=== PATIENT | male | born 1945 | race African-American/Black ===

== ENCOUNTER 2016-11-17 17:22 | Inpatient (IN) ==
--- NOTE | 2016-11-17 18:48 | Emergency Department Note ---
Addendum entered and electronically signed by Jasen Kern DO 11/17/16 21:51: EKG reviewed 85bpm normal rate, sinus rhthmyn, left axis, no acute changes. No ST segment changes normal QRS Original Note: Disposition Clinical Impression: Hyperkalemia, Acute on chronic renal failure, Morbid obesity with BMI of 40.0- 44.9, adult, Pulmonary nodule, Lesion of vertebra, Retroperitoneal lymphadenopathy Anemia Qualifiers: Anemia type: unspecified type Qualified Code(s): D64.9 - Anemia, unspecified Hydronephrosis Qualifiers: Hydronephrosis type: unspecified Qualified Code(s): N13.30 - Unspecified hydronephrosis Disposition: Admitted As Inpatient Condition: Critical Time of Disposition: 21:50 Abdominal Pain HPI - General Chief Complaint: ED Abdominal Pain Stated Complaint: Kidney problems/R flank pain Time Seen by Provider: 11/17/16 18:06 Source: patient Nursing Notes Reviewed: Yes Vital Signs Reviewed: Yes - History of Present Illness HPI Narrative: 71-year-old male with weakness and fatigue for the last few days. [facility] told that he had a obstructed kidneys and the come to the emergency department after he left the urgent care. Patient has history of hyperlipidemia, gout, hypertension, recent concerns for worsening memory issues per documentation reviewed, but denies dementia. Patient has CT scan of his abdomen and his head today, the head CT was negative for any acute abnormality. Pt Subjective Complaint: abdominal pain Consistency: intermittent Location: R flank Pain Severity: moderate Pain Scale: 5 Quality: cramping Radiation: R flank Improves with: nothing Worsens with: movement Associated symptoms: Reports: nausea, other (Weakness). Denies: vomiting, diarrhea - Related Data Home Medications Medication Instructions Recorded Confirmed Acetaminophen [Tylenol] 325 mg PO BID PRN 10/17/15 11/17/16 Allopurinol [Zyloprim 300 MG] 300 mg PO DAILY 10/17/15 11/17/16 Ascorbic Acid [Vitamin C] 1,000 mg PO DAILY 10/17/15 11/17/16 Atorvastatin Calcium [Lipitor] 40 mg PO QPM 10/17/15 11/17/16 Carboxymethylcellulos/Glycerin 1 drop BOTH EYES QID 10/17/15 11/17/16 [Refresh Optive Eye Drops] Docusate Sodium [Colace] 100 mg PO BID 10/17/15 11/17/16 Insulin Glargine [Lantus] 56 unit SQ DAILY 10/17/15 11/17/16 Ipratropium/Albuterol Neb [Duoneb] 3 ml IH QID PRN 10/17/15 11/17/16 Lisinopril [Zestril] 5 mg PO BID 10/17/15 11/17/16 Modafinil [Provigil] 400 mg PO QAM 10/17/15 11/17/16 Multivitamin [Multivitamins] 1 tab PO QAM 10/17/15 11/17/16 Omeprazole [PriLOSEC] 40 mg PO DAILY 10/17/15 11/17/16 Petrolatum,Hydrophilic [Aloe [place]] 1 appl TP AD PRN 10/17/15 11/17/16 Saliva Stimulant [Biotene 3 - 5 spray PO BID 10/17/15 11/17/16 Moisturizing Rinse] Sertraline [Zoloft] 100 mg PO QAM 10/17/15 11/17/16 Benzocaine/Menthol [Sore Throat 1 each MM QID PRN 05/24/16 11/17/16 Lozenge] Bicalutamide [Casodex] 50 mg PO DAILY 05/24/16 11/17/16 Capsaicin 0.025% [Trixaicin] 1 appl TP QID 05/24/16 11/17/16 Pyridoxine HCl [Vitamin B-6] 100 mg PO DAILY 05/24/16 11/17/16 Water for Irrigation (sterile) 0 ml .ROUTE BID 05/24/16 11/17/16 [Water for irrigation (sterile)] Apixaban [Eliquis] 2.5 mg PO BID 11/17/16 11/17/16 Calcium Carbonate [Calcium] 1,000 mg PO BID 11/17/16 11/17/16 Ferrous Sulfate 325 mg PO DAILY 11/17/16 11/17/16 Gabapentin [Neurontin] 300 mg PO Q8H 11/17/16 11/17/16 Urea 1 appl TP BID 11/17/16 11/17/16 Vardenafil HCl [Levitra] 5 mg PO AD PRN 11/17/16 11/17/16 Allergies Allergy/AdvReac Type Severity Reaction Status Date / Time IVP dye Allergy Vomiting Uncoded 10/17/15 06:47 Review of Systems: A 10 point ROS was obtained from the historian. All other systems were reviewed and negative, except as per below, or as documented in the HPI. Constitutional: Denies: fever, chills, weight changes Eyes: Denies: vision changes, eye pain ENT: Denies: nasal congestion, sore throat CV: Denies: chest pain, palpitations, leg swelling Resp: Denies: cough, dyspnea, wheezes, hemoptysis GI: +Right flank pain Denies: abdominal pain, N/V/D/C, hematochezia, melena Denies: dysuria, hematuria MSK: Denies: back pain, neck pain, extremity pain Skin: Denies: new rashes, new lesions Neuro: Generalized weakness Denies: MANZANARES, sensory changes, gait difficulty Psych: Denies: anxiety, depression All systems ED: reviewed and negative except as stated. Abdominal Pain PMH - Past Medical History Medical history: Reports: cancer, CHF, COPD, CVA, diabetes, hyperlipidemia, hypertension, renal disease Male Surgical History: Reports: other Psychiatric history: Reports: anxiety, depression - Social History Smoking status: Never smoker Alcohol use: Reports: none Drug use: Reports: none Physical Exam Constitutional: alert and oriented, in NAD, vital signs reviewed and were within normal limits HEENT: NCAT, sclera anicteric, PERRLA bilaterally, normal external ears bilaterally, nasal septum nondeviated, average dentition, MMM Neck: normal inspection, neck is supple, trachea midline, no JVD Resp: normal chest inspection, CTA bilaterally, no resp distress, symmetric chest rise CV: RRR, no m/g/r, Pulses +2 Rad, +2 DP/PT bilaterally, no pedal edema GI: normal inspection, Soft, NTND, BS present and normoactive Rectal: [place] negative, no hemorrhoids Back: normal inspection, no tenderness to palpation Right CVA tenderness Neuro: A&O3, CN II-XII grossly intact bilaterally, no gross motor or sensory deficits bilaterally MSK: normal inspection, bilateral UE and LE with normal ROM and no deformities Psych: normal mood, normal affect Skin: No rashes, skin warm, dry, intact - General Limitations: no limitations General appearance: alert Course Course Narrative: 71-year-old male with nonspecific complaints including weakness, right flank pain, patient's CT scan demonstrated no ICH and head CT, develop mild bilateral noncalcified pulmonary nodules, most consistent with pulmonary metastatic disease, moderate left-sided hydronephrosis, abnormal retroperitoneal adenopathy , T9 vertebral body suspicious metastatic lesion. Workup with blood work basic labs, reassess. - Reevaluation(s) Reevaluation #1: Admitted to Dr Kelley, Transfusing 2 units of RBCs, patient stable at time of admission. Vital Signs Temperature 98.2 F 11/17/16 17:50 Pulse Rate 95 11/17/16 17:50 Respiratory Rate 18 11/17/16 17:50 Blood Pressure 107/69 11/17/16 17:50 O2 Sat by Pulse Oximetry 98 11/17/16 17:50 Temperature 98.2 F 11/17/16 23:07 Pulse Rate 89 11/17/16 23:07 Respiratory Rate 16 11/17/16 23:07 Blood Pressure 125/81 11/17/16 23:07 O2 Sat by Pulse Oximetry 93 L 11/17/16 23:07 Oxygen Delivery Oxygen Delivery Nasal Cannula Abdominal Pain - MDM Narrative Medical decision making narrative: 71 male with probable metastatic disease, pulmonary nodules T9 lesion, hyperkalemia, anemia, negative for GI bleed, will transfuse 2 units RBCs, also is acute on chronic renal failure, maintained medicine service - Differential Diagnosis Differential Diagnosis: Likely: abdominal pain non-specific, diverticulitis, diverticulosis, endometriosis, pancreatitis - Lab Data Result diagrams: 11/17/16 19:33 11/17/16 19:33 Lab Results 11/17/16 11/17/16 11/17/16 Range/Units 18:52 19:33 19:33 WBC 9.0 (4.3-11.1) K/mcL RBC 2.67 L (4.19-5.50) M/mcL Hgb 6.3 L (12.9-16.9) g/dL Hct 21.3 L (37.5-50.1) % MCV 79.8 L (83.0-100.0) fL MCH 23.6 L (28.0-33.3) pg MCHC 29.6 L (31.6-35.5) g/dL RDW 16.9 H (11.5-14.5) % Plt Count 270 (140-400) K/mcL MPV 10.7 (9.4-12.4) fL Immature Gran % 1.0 (0-4) % Seg Neutrophils % 77.5 % Lymphocytes % 12.3 % Monocytes % 7.5 % Eosinophils % 1.4 % Basophils % 0.3 % Neutrophils # 7.0 (1.6-8.9) K/mcL Lymphocytes # 1.1 (0.6-4.6) K/mcL Monocytes # 0.7 (0.0-1.3) K/mcL Eosinophils # 0.1 (0.0-0.6) K/mcL Basophils # 0.0 (0.0-0.2) K/mcL Nucleated RBCs/100 WBC 0.6 H (0) /100 WBC PT (9.4-12.1) Seconds INR APTT (26.0-36.0) Seconds Sodium 138 (136-145) mEq/L Potassium 5.9 H (3.5-4.5) mEq/L Chloride 108 (98-109) mEq/L Carbon Dioxide 18 L (19-29) mEq/L BUN 73 H (8-26) mg/dL Creatinine 2.06 H (0.72-1.25) mg/dL Est GFR ( Amer) 39 L (> 60) Est GFR (Non-Af Amer) 32 L (> 60) BUN/Creatinine Ratio 35 H (6-26) Glucose 88 (70-99) mg/dL Calculated Osmolality 307 H (280-300) Calcium 9.5 (8.6-10.8) mg/dL Urine Color Yellow (Yellow) Urine Clarity Clear (Clear) Urine pH 6.0 (5.0-8.0) pH Units Ur Specific [place] 1.015 (1.010-1.025) Urine Protein Negative (Neg-Trace) mg/dL Urine Glucose (UA) Normal (Normal) mg/dL Urine Ketones Negative (Negative) mg/dL Urine Blood Negative (Negative) Urine Nitrite Negative (Negative) Urine Bilirubin Negative (Negative) Urine Urobilinogen Normal (Normal) mg/dL Ur Leukocyte Esterase Negative (Negative) Ur Culture Indicated? NO (NO) Stool Occult Blood (Negative) Blood Type Antibody Screen Crossmatch 11/17/16 11/17/16 11/17/16 Range/Units 20:35 21:09 21:09 WBC (4.3-11.1) K/mcL RBC (4.19-5.50) M/mcL Hgb (12.9-16.9) g/dL Hct (37.5-50.1) % MCV (83.0-100.0) fL MCH (28.0-33.3) pg MCHC (31.6-35.5) g/dL RDW (11.5-14.5) % Plt Count (140-400) K/mcL MPV (9.4-12.4) fL Immature Gran % (0-4) % Seg Neutrophils % % Lymphocytes % % Monocytes % % Eosinophils % % Basophils % % Neutrophils # (1.6-8.9) K/mcL Lymphocytes # (0.6-4.6) K/mcL Monocytes # (0.0-1.3) K/mcL Eosinophils # (0.0-0.6) K/mcL Basophils # (0.0-0.2) K/mcL Nucleated RBCs/100 WBC (0) /100 WBC PT 15.3 H (9.4-12.1) Seconds INR 1.4 APTT 39.3 H (26.0-36.0) Seconds Sodium (136-145) mEq/L Potassium (3.5-4.5) mEq/L Chloride (98-109) mEq/L Carbon Dioxide (19-29) mEq/L BUN (8-26) mg/dL Creatinine (0.72-1.25) mg/dL Est GFR ( Amer) (> 60) Est GFR (Non-Af Amer) (> 60) BUN/Creatinine Ratio (6-26) Glucose (70-99) mg/dL Calculated Osmolality (280-300) Calcium (8.6-10.8) mg/dL Urine Color (Yellow) Urine Clarity (Clear) Urine pH (5.0-8.0) pH Units Ur Specific [place] (1.010-1.025) Urine Protein (Neg-Trace) mg/dL Urine Glucose (UA) (Normal) mg/dL Urine Ketones (Negative) mg/dL Urine Blood (Negative) Urine Nitrite (Negative) Urine Bilirubin (Negative) Urine Urobilinogen (Normal) mg/dL Ur Leukocyte Esterase (Negative) Ur Culture Indicated? (NO) Stool Occult Blood Negative (Negative) Blood Type O POSITIVE Antibody Screen NEGATIVE Crossmatch See Detail Attestation Statement - Attestation Attestation: For this encounter, I have reviewed the resident, [employer], or PA documentation, treatment plan, and medical decision making; and I have had face to face time with this patient. 71-year-old male presents with concerns of weakness, fatigue, abnormal abdominal CT. Patient states he had a CT performed as an outpatient which showed hydronephrosis as well as multiple nodules in the lungs and a possible metastatic lesion to one of his vertebral bodies. On physical evaluation the patient is obese and complains of generalized abdominal pain. Rectal exam was negative for occult blood. The patient is anemic on laboratory evaluation. He has acute renal insufficiency compared to his previous labs and is hyperkalemic. Patient will be admitted for further care and evaluation of his multiple nodules, hyperkalemia, acute renal insufficiency as well as his anemia. Patient ordered a unit of blood to treat his hemoglobin below 7. Patient admitted to the hospitalist for further care and evaluation.
[2016-11-17 19:05] LABS: Bilirubin,Urine Negative (Negative); Blood,Urine Negative (Negative); Clarity,Urine Clear (Clear); Color,Urine Yellow (Yellow); Glucose,Urine (UA) Normal (Normal); Ketones,Urine Negative (Negative); Leukocyte Esterase,Urine Negative (Negative); Nitrite,Urine Negative (Negative); Protein,Urine Negative (Neg-Trace); Specific Gravity,Urine 1.015 (1.010-1.025); Urobilinogen,Urine Normal (Normal)
[2016-11-17 19:44] LABS: Basophils % 0.3 %; Eosinophils # 0.1 K/mcL (0.0-0.6); Eosinophils % 1.4 %; Hematocrit 21.3 % (37.5-50.1); Hemoglobin 6.3 g/dL (12.9-16.9); Lymphocytes # 1.1 K/mcL (0.6-4.6); Lymphocytes % 12.3 %; Mean Corpuscular HGB Conc 29.6 g/dL (31.6-35.5); Mean Corpuscular Hemoglobin 23.6 pg (28.0-33.3); Mean Corpuscular Volume 79.8 fL (83.0-100.0); Mean Platelet Volume 10.7 fL (9.4-12.4); Monocytes # 0.7 K/mcL (0.0-1.3); Monocytes % 7.5 %; Nucleated Red Blood Cells 0.6 /100 WBC (0); Platelet Count 270 K/mcL (140-400); Red Blood Count 2.67 M/mcL (4.19-5.50); Red Cell Distribution Width 16.9 % (11.5-14.5); Segmented Neutrophils % 77.5 %
[2016-11-17 19:57] LABS: Calcium 9.5 mg/dL (8.6-10.8)
[2016-11-17 19:59] LABS: Potassium 5.9 mEq/L (3.5-4.5)
[2016-11-17] MEDS ORDERED: 0.9 % Sodium Chloride 1,000 ML IV ONE (20:41)
[2016-11-17] MEDS ORDERED: Calcium Gluconate 1,000 MG in D5% in Water 100 ML IVPB ONE (21:17)
[2016-11-17] MEDS ORDERED: Sodium Bicarbonate 50 MEQ/50 ML VIAL IVP ONE (21:17)
[2016-11-17 21:32] LABS: INR 1.4; Prothrombin Time 15.3 Seconds (9.4-12.1)
[2016-11-17 21:35] LABS: Activated Partial Thrombo Time 39.3 Seconds (26.0-36.0)
[2016-11-17] MEDS ORDERED: Naloxone 0.4 MG/ML INJ IVP PRN (22:39)
[2016-11-17] MEDS ORDERED: *HR* Morphine 2 MG/ML SYRINGE IVP PRN (22:39)
[2016-11-17] MEDS ORDERED: 0.9 % Sodium Chloride 1,000 ML IVC ONE (22:39)
[2016-11-17] MEDS ORDERED: Pantoprazole 40 MG VIAL IVP STA (22:39)
[2016-11-17] MEDS ORDERED: Ipratropium/Albuterol Neb 3 ML IH PRN (22:52)
[2016-11-17] MEDS ORDERED: Gabapentin 300 MG CAPSULE PO SCH (23:00)
--- NOTE | 2016-11-17 23:10 | Internal Med History&Physical ---
Date of Encounter: 11/17/16 Time of Encounter: 23:00 Assessment and Plan (1) Symptomatic anemia Current visit: Yes Status: Acute . (2) Hyperkalemia, diminished renal excretion Current visit: Yes Status: Acute . (3) Acute kidney injury superimposed on CKD Current visit: Yes Status: Resolved . (4) Bladder outlet obstruction Current visit: Yes Status: Acute . (5) Acute on chronic renal failure Current visit: Yes Status: Acute . (6) Hydronephrosis Current visit: Yes Status: Acute . Qualifiers: Hydronephrosis type: unspecified Qualified Code(s): N13.30 - Unspecified hydronephrosis (7) Lesion of vertebra Current visit: Yes Status: Acute . (8) Pulmonary nodule Current visit: Yes Status: Acute . (9) Morbid obesity with BMI of 40.0-44.9, adult Current visit: Yes Status: Chronic . (10) Chronic a-fib Current visit: Yes Status: Chronic . (11) Congestive heart failure Current visit: Yes Status: Chronic . Qualifiers: Congestive heart failure type: unspecified congestive heart failure type Congestive heart failure chronicity: unspecified congestive heart failure chronicity Qualified Code(s): I50.9 - Heart failure, unspecified (12) Hypercapnic respiratory failure Current visit: Yes Status: Chronic . Qualifiers: Chronicity: unspecified Qualified Code(s): J96.92 - Respiratory failure, unspecified with hypercapnia (13) Prostate cancer metastatic to intrapelvic lymph node Current visit: Yes Status: Chronic . (14) MARTHA treated with BiPAP Current visit: Yes Status: Chronic . (15) Chronic anticoagulation Current visit: Yes Status: Chronic . Internal Medicine - H&P: HPI Chief complaint: Generalized weakness. Abdominal/flank pain Admitted From: Emergency Dept Plans for Post Hospital Care: Home History of present illness: Mr. 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 The patient was admitted to [facility] via the emergency department when he presents with complaints of abdominal pain and weakness. Had been seen at [facility] urgent care center for evaluation of generalized fatigue and weakness experienced over a several-day period time. He was told following evaluation that he had obstructed kidneys and instructed to present to the emergency department at [facility] for formal evaluation and disposition. Patient described abdominal pain as being moderate to severe. Intermittent with right flank area preference. Crampy. 5-6/10 in severity. Nothing seems to improve symptoms on present. Symptoms only worsened with modest improvement. Nauseated without emesis accompanies pain. He denies any associated fevers chills sweats. Nicely evidence of any bleeding events. Findings in the ED: Temperature 98.0 pulse 95 respirations 18 BP 107/69 and O2 saturation 98% 2 L per nasal cannula. (CT head scan obtained at the [facility] demonstrated no evidence for intracranial hemorrhage. CT of the chest demonstrated mild bilateral noncalcified pulmonary nodules concerning for metastatic disease. Moderate left-sided hydronephrosis. Abnormal retroperitoneal adenopathy. T9 vertebral body suspicious for metastatic lesion. ) WBC 9 hemoglobin 6.3 hematocrit 21.3. MCV 79.8 MCH 23.6. RDW 16.9. Platelets 270,000. Differential normal. Metabolic panel finds potassium 5.9. Carbon dioxide 18. BUN 73, creatinine 2.06. GFR 32. Glucose 88 osmolality 307. Urinalysis negative. Preliminary impression suggests failure to thrive in the adult presentation with findings worrisome for widely metastatic carcinoma in a patient with underlying history of known stage IV prostate CA refractory to therapeutic interventions. The presentation is further complicated by symptomatic anemia secondary to acute on chronic blood loss. Associated iron deficiency also suggested. Acute kidney injury on chronic kidney disease stage III with associated hyperkalemia and metabolic acidemia noted with likely associated causation from moderate left-sided hydronephrosis and retroperitoneal adenopathy as demonstrated by CT's analysis. SIRS and sepsis criteria and are not met acutely. He has denied any evidence for active bleeding. He presents with a very complicated past medical history and ongoing multisystem clinical derangements. He presents risk for further acute clinical decline and morbidity given his presenting chief complaints, frailty, findings and comorbidities. Workup and treatments will proceed comprehensively. Cumulative laboratory and radiographic data base was reviewed, considered and discussed. Pertinent ancillary medical records including ECW and PCI documentation was reviewed and considered. Given the patient's presenting concerns, past medical history, clinical findings and symptoms, he is admitted at this time will undergo further evaluation and disposition. Orders were written as per the computerized physician security orderly system.......................................................................... .................... Consultative opinions will be sought as clinical circumstances justify. Pain management needs will be addressed. Laboratory and radiographic data base will be updated as appropriate. Studies include: Cultures of blood and urine and sputum, CPK, UA, UDS, cardiac injury panel, BNP, Ddimer, metabolic and hematologic panel, magnesium, phosphorus, ionized calcium, thyroid panel, lipid profile, A1c, C-peptide, CRP, iron studies , B12, folate, FOBT, blood gas, lactic acid, serologies, etc. Precautions: Aspiration, fall, delirium protocol/surveillance initiated. Telemetry with continuous hemodynamic monitoring and pulse oximetry initiated. Orthostatic vital signs. Empiric antibody coverage: Intravenous Rocephin and azithromycin pending culture data. Special studies: CT chest, CT abd/pelvis, bladder scan/postvoid,US retroperitoneum, chest x-ray, telemetry, EKG, echocardiogram. Pulmonary toilet: Incentive spirometry, aerosol bronchodilator, mucolytic, antitussive, supplemental oxygen. Corticosteroid therapy. CPAP/BiPAP supplemental oxygen delivery. Aerosol Mucomyst therapy. Fluid and electrolyte repletion efforts will proceed. Careful attention to fluid balance and renal recovery will be emphasized. Avoidance of nephrotoxic exposure and adverse drug drug interaction in the setting of impaired renal function will be monitored closely. Acute coronary syndrome protocol/surveillance initiated. DVT and PUD prophylaxis initiated: PPI therapy, intermittent pneumatic cuffs. Subcutaneous heparin. Early ambulation will be encouraged. Immunization updates recommended. Influenza and pneumococcal vaccinations as part of ongoing preventative healthcare recommendations strongly recommended. Smoking cessation counseling briefly addressed. Patient is a nonsmoker. Advanced care directive discussion briefly addressed. Patient does not declare any healthcare restrictions at this time. Cardiovascular risk appraisal and cardiovascular risk reduction efforts will be emphasized. Physical /occupational therapy may be considered to evaluate patient's functional capacity and progress mobility if circumstances justify. Nutrition/dietary education counseling may be considered as circumstances justify. Outpatient medication schedules will be reviewed, confirmed and facilitated as appropriate. Reconciliation of home treatments including adjustments, substitutions and reintroduction into the treatment regimen will address necessary maintenance therapies for chronic pre-existing medical conditions. Plan of care has been reviewed and discussed in detail with the patient. Questions addressed. Hospital course dictated by clinical findings, treatment response and potential consultative interventions. Patient is at risk for further acute clinical decline and morbidity due to his chief complaints, findings and comorbid conditions in the setting of evolving multiorgan derangements. Condition is serious. Prognosis is guarded. CODE STATUS is reported as full. Past Med Surg Social Fam HX - Past Medical History Source: old records reviewed Medical history: arthritis (Arthritis. History of gout.), atrial fibrillation ( Chronic anticoagulation.), cancer (Stage IV prostate cancer, metastatic. S/P sternal pain radiation to the prostate, Lupron injections and Casodex.), CHF, COPD (Chronic hypercapnic respiratory failure. MARTHA; nocturnal CPAP dependent. OHS.), coronary artery disease, CVA (Remote left caudate head and right basal ganglia lacunar infarcts lacunar infarcts noted at CT head 2015), diabetes, GERD , hyperlipidemia, hypertension, malignancy (Metastatic prostate cancer diagnosed 2010), myocardial infarction, osteoporosis, renal disease (CKD III. hydronephrosis secondary to ureteral entrapment by retroperitoneal adenopathy. Erectile dysfunction.), valvular heart disease (Aortic valve stenosis status post valve replacement), other (Anemia of chronic disease. Iron deficiency. Peripheral neuropathy. Circadian rhythm sleep disorder. Morbid Obesity/ Pickwickian syndrome.) Psychiatric history: anxiety, depression, other - Past Surgical History Surgical History: coronary bypass (CABG), heart valve replacement, other ( ) - Social History Smoking Status: Never smoker Smokeless Tobacco Status: No Alcohol use: none Drug use: none Occupational status: unemployed Current living situation: With Family Activity Level: Mostly sedentary Recent Out of Country Travel Within the Last 8 Weeks: No Exposure or Possible Exposure to Illness During Travel: No - Family History Father Living Status: Cause of : heart attack Hx Family Cardiac Disorders: Yes Internal Medicine - H&P: Meds Acetaminophen [Tylenol] 325 mg PO BID PRN 10/17/15 [History] Allopurinol [Zyloprim 300 MG] 300 mg PO DAILY 10/17/15 [History] Ascorbic Acid [Vitamin C] 1,000 mg PO DAILY 10/17/15 [History] Atorvastatin Calcium [Lipitor] 40 mg PO QPM 10/17/15 [History] Carboxymethylcellulos/Glycerin [Refresh Optive Eye Drops] 1 drop BOTH EYES QID 10/17/15 [History] Docusate Sodium [Colace] 100 mg PO BID 10/17/15 [History] Insulin Glargine [Lantus] 56 unit SQ DAILY 10/17/15 [History] Ipratropium/Albuterol Neb [Duoneb] 3 ml IH QID PRN 10/17/15 [History] Modafinil [Provigil] 400 mg PO QAM 10/17/15 [History] Multivitamin [Multivitamins] 1 tab PO QAM 10/17/15 [History] Omeprazole [PriLOSEC] 40 mg PO DAILY 10/17/15 [History] Petrolatum,Hydrophilic [Aloe [place]] 1 appl TP AD PRN 10/17/15 [History] Saliva Stimulant [Biotene Moisturizing Rinse] 3 - 5 spray PO BID 10/17/15 [ History] Sertraline [Zoloft] 100 mg PO QAM 10/17/15 [History] Benzocaine/Menthol [Sore Throat Lozenge] 1 each MM QID PRN 05/24/16 [History] Bicalutamide [Casodex] 50 mg PO DAILY 05/24/16 [History] Capsaicin 0.025% [Trixaicin] 1 appl TP QID 05/24/16 [History] Pyridoxine HCl [Vitamin B-6] 100 mg PO DAILY 05/24/16 [History] Water for Irrigation (sterile) [Water for irrigation (sterile)] 0 ml .ROUTE BID 05/24/16 [History] Calcium Carbonate [Calcium] 1,000 mg PO BID 11/17/16 [History] Ferrous Sulfate 325 mg PO DAILY 11/17/16 [History] Gabapentin [Neurontin] 300 mg PO Q8H 11/17/16 [History] Urea 1 appl TP BID 11/17/16 [History] Vardenafil HCl [Levitra] 5 mg PO AD PRN 11/17/16 [History] Amlodipine [Norvasc] 5 mg PO DAILY #30 tablet 11/27/16 [Rx] Allergies IVP dye Allergy (Uncoded 10/17/15 06:47) Vomiting All Systems PM: A 10-system review of systems was performed and is negative for pertinent findings except as documented above in the HPI. - Constitutional Constitutional: as per HPI, fatigue, malaise, weakness, other, no chills, no fever(s), no night sweats - EENT Eyes: as per HPI, no change in vision, no discharge, no pain, no photophobia Ears: as per HPI, no ear discharge, no ear pain, no tinnitus Nose, mouth and throat: as per HPI, no dysphagia, no nasal discharge, no neck pain, no sore throat - Cardiovascular Cardiovascular ROS IM: as per HPI, no chest pain, no diaphoresis, no dyspnea, no lightheadedness, no palpitations, no syncope - Respiratory Respiratory: as per HPI, no cough, no dyspnea, no wheezing, no excessive phlegm production - Gastrointestinal Gastrointestinal: as per HPI, abdominal pain, bloating, no diarrhea, no hematemesis, no hematochezia, no melena, no nausea, no vomiting - Genitourinary Genitourinary ROS male: as per HPI, flank pain, other - Musculoskeletal Musculoskeletal ROS IM: as per HPI, no numbness, no tingling - Integumentary Integumentary IM: as per HPI, no rash, no unusual bruising - Neurological Neurological ROS: as per HPI, abnormal gait, frequent falls, weakness, no confusion, no convulsions, no focal weakness, no numbness, no tingling, no tremor(s) - Psychiatric Psychiatric: as per HPI - Endocrine Endocrine IM: as per HPI - Hematologic/Lymphatic Hematologic/Lymphatic: as per HPI, no easy bruising - Allergic/Immunologic Allergic/Immunologic: as per HPI - Constitutional Vitals: Temp Pulse Resp BP Pulse Ox 98.2 F 95 0 0/0 98 11/17/16 17:50 11/17/16 17:50 11/17/16 22:49 11/17/16 22:49 11/17/16 17:50 General appearance: Present: mild distress, A&O X 3, morbidly obese, answers questions appropriately - Head Head exam: Present: atraumatic, normocephalic - Eye Eye exam: Present: EOMI, PERRL, conjuntiva pink, sclera anicteric Pupils: Present: normal accommodation, PERRL - ENT ENT exam: Present: mucous membranes moist, normal external ear exam, normal oropharynx - Neck Neck exam general surgery: Present: full ROM, supple, trachea midline. Absent: lymphadenopathy - Respiratory Respiratory exam: Present: chest wall tenderness, decreased breath sounds, CTAB. Absent: accessory muscle use, rales, rhonchi, wheezes - Cardiovascular Cardiovascular exam: Present: RRR, +S1, +S2. Absent: diastolic murmur, gallop, rubs, systolic murmur - GI/Abdominal GI/Abdominal exam: Present: diminished bowel sounds, distended, soft, no peritoneal signs. Absent: tenderness - Extremities Exam Extremities exam: Present: full ROM, warm, radial pulses palpable and symetrical. Absent: calf tenderness, cyanotic, pedal edema - Neurological Exam Neurological exam: Present: alert, altered, CN II-XII intact, motor sensory deficit, oriented X3. Absent: pronater drift, facial droop, speech deficit - Expanded Neurological Exam Neurological exam expanded: Present: ataxia, inattentive, protecting the airway. Absent: expressive aphasia, receptive aphasia, tremor Patient oriented to: Present: person, place, time Speech: Present: fluid speech Coma Scale Eye Opening: Spontaneous Coma Scale Motor Response: Obeys Commands Coma Scale Verbal Response: Oriented Coma Scale Total: 15 - Psychiatric Psychiatric exam: Present: anxious, depressed, flat affect - Skin Skin exam: Present: dry, intact, warm. Absent: petechiae, rash, urticaria, vesicles Internal Med - H&P Results - Labs CBC & Chem 7: 11/29/16 15:17 11/29/16 06:30 - Impressions Vital Signs Temp Pulse Resp BP Pulse Ox 11/17/16 23:07 98.2 F 89 16 125/81 93 L 11/17/16 22:49 0 0/0 11/17/16 17:50 98.2 F 95 18 107/69 98 Intake and Output 11/17/16 11/17/16 11/17/16 07:59 15:59 23:59 Intake Total 120 / 120 Balance 120 / 120 Intake: Oral 120 / 120 Other: Stool Characteristics Normal for Patient Stool Color Brown # Voids 1 Weight 136.7 kg Patient Weight 11/17/16 23:59 Weight 136.7 kg Short CBC 11/17/16 Range/Units 19:33 WBC 9.0 (4.3-11.1) K/mcL Hgb 6.3 L (12.9-16.9) g/dL Hct 21.3 L (37.5-50.1) % Plt Count 270 (140-400) K/mcL Neutrophils # 7.0 (1.6-8.9) K/mcL BMP 11/17/16 Range/Units 19:33 Sodium 138 (136-145) mEq/L Potassium 5.9 H (3.5-4.5) mEq/L Chloride 108 (98-109) mEq/L Carbon Dioxide 18 L (19-29) mEq/L BUN 73 H (8-26) mg/dL Creatinine 2.06 H (0.72-1.25) mg/dL Glucose 88 (70-99) mg/dL Calcium 9.5 (8.6-10.8) mg/dL Urine 11/17/16 Range/Units 18:52 Urine Color Yellow (Yellow) Urine Clarity Clear (Clear) Urine pH 6.0 (5.0-8.0) pH Units Ur Specific Mulberry 1.015 (1.010-1.025) Urine Protein Negative (Neg-Trace) mg/dL Urine Glucose (UA) Normal (Normal) mg/dL Abnormal lab results RBC 2.67 M/mcL (4.19-5.50) L 11/17/16 19:33 Hgb 6.3 g/dL (12.9-16.9) L 11/17/16 19:33 Hct 21.3 % (37.5-50.1) L 11/17/16 19:33 MCV 79.8 fL (83.0-100.0) L 11/17/16 19:33 MCH 23.6 pg (28.0-33.3) L 11/17/16 19:33 MCHC 29.6 g/dL (31.6-35.5) L 11/17/16 19:33 RDW 16.9 % (11.5-14.5) H 11/17/16 19:33 Nucleated RBCs/100 WBC 0.6 /100 WBC (0) H 11/17/16 19:33 PT 15.3 Seconds (9.4-12.1) H 11/17/16 21:09 APTT 39.3 Seconds (26.0-36.0) H 11/17/16 21:09 Potassium 5.9 mEq/L (3.5-4.5) H 11/17/16 19:33 Carbon Dioxide 18 mEq/L (19-29) L 11/17/16 19:33 BUN 73 mg/dL (8-26) H 11/17/16 19:33 Creatinine 2.06 mg/dL (0.72-1.25) H 11/17/16 19:33 Est GFR ( Amer) 39 (> 60) L 11/17/16 19:33 Est GFR (Non-Af Amer) 32 (> 60) L 11/17/16 19:33 BUN/Creatinine Ratio 35 (6-26) H 11/17/16 19:33 Calculated Osmolality 307 (280-300) H 11/17/16 19:33 Allergies Allergy/AdvReac Type Severity Reaction Status Date / Time IVP dye Allergy Vomiting Uncoded 10/17/15 06:47 Laboratory Results WBC 9.0 K/mcL (4.3-11.1) 11/17/16 19:33 RBC 2.67 M/mcL (4.19-5.50) L 11/17/16 19:33 Hgb 6.3 g/dL (12.9-16.9) L 11/17/16 19:33 Hct 21.3 % (37.5-50.1) L 11/17/16 19:33 MCV 79.8 fL (83.0-100.0) L 11/17/16 19:33 MCH 23.6 pg (28.0-33.3) L 11/17/16 19:33 MCHC 29.6 g/dL (31.6-35.5) L 11/17/16 19:33 RDW 16.9 % (11.5-14.5) H 11/17/16 19:33 Plt Count 270 K/mcL (140-400) 11/17/16 19:33 MPV 10.7 fL (9.4-12.4) 11/17/16 19:33 Immature Gran % 1.0 % (0-4) 11/17/16 19:33 Seg Neutrophils % 77.5 % 11/17/16 19:33 Lymphocytes % 12.3 % 11/17/16 19:33 Monocytes % 7.5 % 11/17/16 19:33 Eosinophils % 1.4 % 11/17/16 19:33 Basophils % 0.3 % 11/17/16 19:33 Neutrophils # 7.0 K/mcL (1.6-8.9) 11/17/16 19:33 Lymphocytes # 1.1 K/mcL (0.6-4.6) 11/17/16 19: Monocytes # 0.7 K/mcL (0.0-1.3) 11/17/16 19: Eosinophils # 0.1 K/mcL (0.0-0.6) 11/17/16 19: Basophils # 0.0 K/mcL (0.0-0.2) 11/17/16 19:33 Nucleated RBCs/100 WBC 0.6 /100 WBC (0) H 11/17/16 19:33 PT 15.3 Seconds (9.4-12.1) H 11/17/16 21:09 INR 1.4 11/17/16 21:09 APTT 39.3 Seconds (26.0-36.0) H 11/17/16 21:09 Sodium 138 mEq/L (136-145) 11/17/16 19:33 Potassium 5.9 mEq/L (3.5-4.5) H 11/17/16 19:33 Chloride 108 mEq/L (98-109) 11/17/16 19:33 Carbon Dioxide 18 mEq/L (19-29) L 11/17/16 19:33 BUN 73 mg/dL (8-26) H 11/17/16 19:33 Creatinine 2.06 mg/dL (0.72-1.25) H 11/17/16 19:33 Est GFR ( Amer) 39 (> 60) L 11/17/16 19:33 Est GFR (Non-Af Amer) 32 (> 60) L 11/17/16 19:33 BUN/Creatinine Ratio 35 (6-26) H 11/17/16 19:33 Glucose 88 mg/dL (70-99) 11/17/16 19:33 Calculated Osmolality 307 (280-300) H 11/17/16 19:33 Calcium 9.5 mg/dL (8.6-10.8) 11/17/16 19:33 Urine Color Yellow (Yellow) 11/17/16 18:52 Urine Clarity Clear (Clear) 11/17/16 18:52 Urine pH 6.0 pH Units (5.0-8.0) 11/17/16 18:52 Ur Specific Mul[place] 1.015 (1.010-1.025) 11/17/16 18:52 Urine Protein Negative mg/dL (Neg-Trace) 11/17/16 18:52 Urine Glucose (UA) Normal mg/dL (Normal) 11/17/16 18:52 Urine Ketones Negative mg/dL (Negative) 11/17/16 18:52 Urine Blood Negative (Negative) 11/17/16 18:52 Urine Nitrite Negative (Negative) 11/17/16 18:52 Urine Bilirubin Negative (Negative) 11/17/16 18:52 Urine Urobilinogen Normal mg/dL (Normal) 11/17/16 18:52 Ur Leukocyte Esterase Negative (Negative) 11/17/16 18:52 Ur Culture Indicated? NO (NO) 11/17/16 18:52 Stool Occult Blood Negative (Negative) 11/17/16 20:35 Blood Type O POSITIVE 11/17/16 21:09 Antibody Screen NEGATIVE 11/17/16 21:09 Crossmatch See Detail 11/17/16 21:09 Retroperitoneum Ultrasound 11/18/16 09:00 IMPRESSION: Moderate left-sided hydronephrosis and proximal hydroureter. No significant right-sided hydronephrosis. A left ureteral jet could not be documented. Large postvoid residual within the urinary bladder. D/ / 11/18/2016 10:12:47 Pramod Mcdermott MD / luciano Interpreting Provider: Pramod Mcdermott MD Guidance Needle Placement Ultrasound 11/21/16 00:00 IMPRESSION: Successful percutaneous nephrostomy tube placement, with a 10 [place] nephrostomy catheter placed. D/ / Pramod Vega MD / Pramod Vega MD Interpreting Provider: Pramod Vega MD Nephrostomy 11/21/16 00:00
[2016-11-17 23:34] LABS: VBG HCO3 27.3 mEq/L (21-27); VBG PH 7.28 pH Units (7.32-7.42)
[2016-11-17 23:38] LABS: Ionized Calcium 1.19 mmol/L (1.15-1.35)
[2016-11-17] MEDS: Ipratropium/Albuterol Neb 3 ML IH SCH (23:39)
[2016-11-17] MEDS ORDERED: BENZOCAINE/MENTHOL 1 LOZENGE (BAG OF 6) MM PRN (23:41)
[2016-11-17] MEDS ORDERED: D5% in Water 1,000 ML IV PRN (23:42)
[2016-11-17] MEDS ORDERED: *HR* Dextrose 50 % in Water (Syg) 50 ML SYRINGE IVP PRN (23:42)
[2016-11-17] MEDS ORDERED: Dextrose Gel 15 GM PO PRN ×2 (23:42)
[2016-11-17] MEDS: Sodium Bicarbonate 100 MEQ in 0.45 % Sodium Chloride 1,000 ML IVC SCH (23:44)
[2016-11-17 23:48] LABS: Albumin 3.7 g/dL (3.5-5.0); Albumin/Globulin Ratio 1.1 (1.1-2.2); Bilirubin,Direct 0.1 mg/dL (0.0-0.5); Bilirubin,Indirect 0.2 mg/dL (0.0-1.2); Bilirubin,Total 0.3 mg/dL (0.2-1.2); Globulin 3.5 g/dL (2.4-3.5); Total Protein 7.2 g/dL (6.0-8.3)
[2016-11-18] MEDS ORDERED: 0.9 % Sodium Chloride 250 ML ONE (00:49)
[2016-11-18] MEDS: Gabapentin 100 MG CAPSULE PO SCH ×4 (01:01→21:12)
[2016-11-18] MEDS: Insulin LISPRO 300 UNITS/3 ML VIAL SQ SCH ×8 (01:01→21:15)
[2016-11-18] MEDS: Insulin DETEMIR 100 UNIT/ML X5UNITS SQ SCH ×2 (01:02→21:11)
[2016-11-18] MEDS ORDERED: Desitin (Zinc Oxide) 56 GM TUBE TP PRN (01:10)
[2016-11-18] MEDS: *HR* OxyCODONE Immed Rel 5 MG TABLET PO PRN (02:19)
[2016-11-18 02:49] LABS: Hemoglobin A1C 5.6 %
[2016-11-18] MEDS: Ipratropium/Albuterol Neb 3 ML IH SCH ×4 (03:44→23:32)
[2016-11-18] MEDS ORDERED: metOLazone 2.5 MG TABLET PO STA (04:40)
[2016-11-18] MEDS ORDERED: Bumetanide 1 MG/4 ML VIAL IVP ONE (04:40)
[2016-11-18] MEDS: Artificial Tears SOLN 15 ML BOTTLE BOTH EYES SCH ×4 (08:43→21:15)
[2016-11-18] MEDS: Bicalutamide 50 MG TABLET PO SCH (08:44)
[2016-11-18] MEDS: Capsaicin 0.025% 60 GM TUBE TP PRN ×2 (08:45→13:19)
[2016-11-18] MEDS: Pyridoxine (B-6) 50 MG TABLET PO SCH (08:46)
[2016-11-18] MEDS: Ascorbic Acid 500 MG TABLET PO SCH (08:46)
[2016-11-18] MEDS: Capsaicin 0.025% 60 GM TUBE TP SCH ×4 (08:46→21:16)
[2016-11-18 11:44] LABS: Basophils % 0.2 %; Eosinophils # 0.2 K/mcL (0.0-0.6); Eosinophils % 1.9 %; Hematocrit 24.8 % (37.5-50.1); Hemoglobin 7.4 g/dL (12.9-16.9); Immature Granulocytes % 0.5 % (0-4); Lymphocytes # 1.2 K/mcL (0.6-4.6); Mean Corpuscular HGB Conc 29.8 g/dL (31.6-35.5); Mean Corpuscular Volume 83.8 fL (83.0-100.0); Mean Platelet Volume 9.8 fL (9.4-12.4); Monocytes # 0.7 K/mcL (0.0-1.3); Monocytes % 8.7 %; Neutrophils # 6.3 K/mcL (1.6-8.9); Nucleated Red Blood Cells 0.5 /100 WBC (0); Platelet Count 231 K/mcL (140-400); Red Blood Count 2.96 M/mcL (4.19-5.50); Red Cell Distribution Width 16.2 % (11.5-14.5); Segmented Neutrophils % 74.7 %
[2016-11-18 11:51] LABS: Albumin 3.3 g/dL (3.5-5.0); Bilirubin,Total 0.3 mg/dL (0.2-1.2); Calcium 9.1 mg/dL (8.6-10.8); Chol/HDL Ratio 4.7 (0-4.9); Globulin 3.3 g/dL (2.4-3.5); Magnesium 1.7 mg/dL (1.6-2.6); Potassium 5.6 mEq/L (3.5-4.5); Total Protein 6.6 g/dL (6.0-8.3)
[2016-11-18 12:00] LABS: INR 1.3; Prothrombin Time 13.7 Seconds (9.4-12.1)
[2016-11-18 12:03] LABS: Activated Partial Thrombo Time 36.7 Seconds (26.0-36.0)
[2016-11-18 12:12] LABS: Thyroid Stimulating Hormone 0.776 mcIU/mL (0.350-4.840)
--- NOTE | 2016-11-18 12:48 | Internal Med Progress Note ---
Date of Encounter: 11/18/16 Time of Encounter: 10:00 - Assessment and plan (1) Prostate cancer metastatic to intrapelvic lymph node Current Visit: Yes Status: Chronic Assessment and plan: Patient has seen oncologist as outpatient before. We will continue supportive treatment, patient to follow-up with oncologist as outpatient. (2) Acute kidney injury superimposed on CKD Current Visit: Yes Status: Acute Assessment and plan: Patient has history of CKD. US renal shows hydronephrosis, will consult urology. Pt has signs of dehydration with high BUN/Cr ratio, will continue hydrate pt and f/u renal function. (3) Anemia Current Visit: Yes Status: Acute Assessment and plan: Etiology undetermined. FOBT negative. Will follow iron, vit B12, and folate level. Two units of PRBC transfused. Qualifiers: Anemia type: unspecified type Qualified Code(s): D64.9 - Anemia, unspecified (4) Bladder outlet obstruction Current Visit: Yes Status: Acute Assessment and plan: Urology consult. Pt has prostate cancer. (5) Hydronephrosis Current Visit: Yes Status: Acute Assessment and plan: Urology consult. Qualifiers: Hydronephrosis type: unspecified Qualified Code(s): N13.30 - Unspecified hydronephrosis (6) Hyperkalemia Current Visit: Yes Status: Acute Assessment and plan: Kayexalate po once. (7) Chronic a-fib Current Visit: Yes Status: Chronic Assessment and plan: Rate is well controlled. Pt was on eliquis, hold now b/o low H/H. (8) Congestive heart failure Current Visit: Yes Status: Chronic Assessment and plan: No signs of exacerbation. Continue home med. Qualifiers: Congestive heart failure type: unspecified congestive heart failure type Congestive heart failure chronicity: unspecified congestive heart failure chronicity Qualified Code(s): I50.9 - Heart failure, unspecified (9) Morbid obesity with BMI of 40.0-44.9, adult Current Visit: Yes Status: Chronic Assessment and plan: Need lifestyle modification. (10) MARTHA treated with BiPAP Current Visit: Yes Status: Chronic Assessment and plan: Continue night BiPAP (11) Acute encephalopathy Current Visit: No Status: Acute Assessment and plan: Multifactorial. Possibly due to dehydration and anemia. Treat underlying disease , close monitoring. Pt is at high risk b/o acute mental status change. (12) DVT prophylaxis Current Visit: Yes Status: Acute Assessment and plan: EPCD (13) Diabetes Current Visit: Yes Status: Acute Assessment and plan: Covered by basal and sliding scale insulin. 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 Qualifiers: COPD type: emphysema Emphysema type: other Qualified Code(s): J43.8 - Other emphysema - Time Spent With Patient Greater than 35 minutes - Subjective Interval history: Patient is a 71-year-old male admitted for general weakness and fatigue. His past medical history is significant for end stage prostate cancer with bone metastasis. Other past medical history includes the COPD, CHF, CVA, diabetes, hyperlipidemia, hypertension, CKD Patient was seen and examined. He is still weak and confused, he had 2 unit of blood transfused. FOBT negative. Patient has hydronephrosis and hydroureter. Will call urology consult. We will continue hydrate patient and supportive treatment. Also call palliative care consult to determine goal of care. - Constitutional Vitals: Temp Pulse Resp BP Pulse Ox 98.2 F 85 18 113/75 95 11/18/16 11:21 11/18/16 11:21 11/18/16 11:21 11/18/16 11:21 11/18/16 11:21 General appearance: Present: A&O X 2, mild distress, morbidly obese - Head Head exam: Present: atraumatic, normocephalic - Eye Eye exam: Present: PERRL, conjuntiva pink, sclera anicteric Pupils: Present: PERRL - Neck Neck exam general surgery: Present: supple, trachea midline. Absent: lymphadenopathy - Respiratory Respiratory exam: Present: CTAB. Absent: accessory muscle use, rales, rhonchi, wheezes - Cardiovascular Cardiovascular exam: Present: RRR, +S1, +S2. Absent: diastolic murmur, gallop, rubs, systolic murmur - GI/Abdominal GI/Abdominal exam: Present: normal bowel sounds, soft, no peritoneal signs. Absent: distended, tenderness - Extremities Exam Extremities exam: Present: warm, radial pulses palpable and symetrical. Absent : calf tenderness, cyanotic, pedal edema - Neurological Exam Neurological exam: Present: CN II-XII intact, oriented X3, no focal deficits. Absent: pronater drift, facial droop, speech deficit - Skin Skin exam: Present: dry, intact Internal Medicine: Result - Labs CBC & Chem 7: 11/18/16 11:26 11/18/16 11:26 Labs: Short CBC 11/18/16 Range/Units 11:26 WBC 8.4 (4.3-11.1) K/mcL Hgb 7.4 L (12.9-16.9) g/dL Hct 24.8 L (37.5-50.1) % Plt Count 231 (140-400) K/mcL Neutrophils # 6.3 (1.6-8.9) K/mcL BMP 11/18/16 11:26 Sodium 138 Potassium 5.6 H Chloride 106 Carbon Dioxide 23 BUN 63 H Creatinine 1.89 H Glucose 110 H Calcium 9.1 Cardiac Enzymes 11/17/16 Range/Units 23:21 Troponin I 0.09 H* (0-0.03) ng/mL Liver Function 11/17/16 11/18/16 Range/Units 23:21 11:26 Total Bilirubin 0.3 0.3 (0.2-1.2) mg/dL Direct Bilirubin 0.1 (0.0-0.5) mg/dL AST 28 23 (5-34) Units/L ALT 14 12 (0-55) Units/L Alkaline Phosphatase 113 105 (38-126) Units/L Albumin 3.7 3.3 L (3.5-5.0) g/dL - ABG Interpretation ABG results: PT/INR, D-dimer PT 13.7 Seconds (9.4-12.1) H 11/18/16 11:26 - Impressions Impressions Retroperitoneum Ultrasound 11/18/16 09:00 IMPRESSION: Moderate left-sided hydronephrosis and proximal hydroureter. No significant right-sided hydronephrosis. A left ureteral jet could not be documented. Large postvoid residual within the urinary bladder. D/ / 11/18/2016 10:12:47 Pramod Mcdermott MD / luciano Interpreting Provider: Pramod Mcdermott MD - VTE Documentation of Mechanical Device: Graduated compression elastic hosiery Consult Discharge Plan - Plan [facility]errals: [facility] [Primary Care Provider] -
--- NOTE | 2016-11-18 13:14 | Urology - Consult Note ---
Date of Encounter: 11/18/16 Time of Encounter: 13:12 - Assessment and Plan (1) Hydronephrosis Current Visit: Yes Status: Acute Assessment and plan: 71 year old man with new left hydronephrosis and some hyperkalemia. I recommend placement of a left nephrostomy tube vs antegrade stent placement. I reviewed the risks involved. I am concerned that with his pelvic lymphadenopathy it may be difficult for me to place a stent cystoscopically. We will schedule him for the procedure when IR is available. Qualifiers: Hydronephrosis type: unspecified Qualified Code(s): N13.30 - Unspecified hydronephrosis (2) Prostate cancer metastatic to intrapelvic lymph node Current Visit: Yes Status: Chronic Assessment and plan: 71 year old man with regionally advanced prostate cancer. I will check a testosterone today and a PSA. If his testosterone is > 50, we will need to repeat another injection of leuprolide. Consider medical oncology consultation. Urology CN:HPI Consult date: 11/18/16 Reason for consult Urology: Hydronephrosis History of present illness: 71 year old man with regionally advanced prostate cancer was admitted and has new worsening left hydronephrosis. He was seen by Dr. Forrester and me previously. We both recommended initiating androgen deprivation therapy. [facility] Based upon old notes it seems that he was started on lupron previously. However, his testosterone on 05/24/2016 was 104. I don't have a more recent testosterone. In addition he had a PSA at 324.26 from 05/23/2016. Again, we don't have a more recent PSA in our system. He has had worsening renal function and some hyperkalemia. A renal and bladder ultrasound was reviewed which showed left hydronephrosis. Today he feels well. He says he is voiding okay. His ultrasound showed a slightly elevated residual, but he has been urinating well. UOP was 775 today. Past Med Surg Social Fam HX - Past Medical History Medical history: arthritis (Arthritis. History of gout.), atrial fibrillation ( Chronic anticoagulation.), cancer (Stage IV prostate cancer, metastatic. S/P sternal pain radiation to the prostate, Lupron injections and Casodex.), CHF, COPD (Chronic hypercapnic respiratory failure. MATRHA; nocturnal CPAP dependent. OHS.), coronary artery disease, CVA (Remote left caudate head and right basal ganglia lacunar infarcts lacunar infarcts noted at CT head 2015), diabetes, GERD , hyperlipidemia, hypertension, malignancy (Metastatic prostate cancer diagnosed 2010), myocardial infarction, osteoporosis, renal disease (CKD III. hydronephrosis secondary to ureteral entrapment by retroperitoneal adenopathy. Erectile dysfunction.), valvular heart disease (Aortic valve stenosis status post valve replacement), other (Anemia of chronic disease. Iron deficiency. Peripheral neuropathy. Circadian rhythm sleep disorder. Morbid Obesity/ Pickwickian syndrome.) Psychiatric history: anxiety, depression, other - Past Surgical History Surgical History: coronary bypass (CABG), heart valve replacement, other ( ) - Social History Smoking Status: Never smoker Smokeless Tobacco Status: No Alcohol use: none Drug use: none - Family History Father Living Status: Cause of : heart attack Hx Family Cardiac Disorders: Yes Medications and Allergies Acetaminophen [Tylenol] 325 mg PO BID PRN 10/17/15 [History] Allopurinol [Zyloprim 300 MG] 300 mg PO DAILY 10/17/15 [History] Ascorbic Acid [Vitamin C] 1,000 mg PO DAILY 10/17/15 [History] Atorvastatin Calcium [Lipitor] 40 mg PO QPM 10/17/15 [History] Carboxymethylcellulos/Glycerin [Refresh Optive Eye Drops] 1 drop BOTH EYES QID 10/17/15 [History] Docusate Sodium [Colace] 100 mg PO BID 10/17/15 [History] Insulin Glargine [Lantus] 56 unit SQ DAILY 10/17/15 [History] Ipratropium/Albuterol Neb [Duoneb] 3 ml IH QID PRN 10/17/15 [History] Lisinopril [Zestril] 5 mg PO BID 10/17/15 [History] Modafinil [Provigil] 400 mg PO QAM 10/17/15 [History] Multivitamin [Multivitamins] 1 tab PO QAM 10/17/15 [History] Omeprazole [PriLOSEC] 40 mg PO DAILY 10/17/15 [History] Petrolatum,Hydrophilic [Aloe [place]] 1 appl TP AD PRN 10/17/15 [History] Saliva Stimulant [Biotene Moisturizing Rinse] 3 - 5 spray PO BID 10/17/15 [ History] Sertraline [Zoloft] 100 mg PO QAM 10/17/15 [History] Benzocaine/Menthol [Sore Throat Lozenge] 1 each MM QID PRN 05/24/16 [History] Bicalutamide [Casodex] 50 mg PO DAILY 05/24/16 [History] Capsaicin 0.025% [Trixaicin] 1 appl TP QID 05/24/16 [History] Pyridoxine HCl [Vitamin B-6] 100 mg PO DAILY 05/24/16 [History] Water for Irrigation (sterile) [Water for irrigation (sterile)] 0 ml .ROUTE BID 05/24/16 [History] Apixaban [Eliquis] 2.5 mg PO BID 11/17/16 [History] Calcium Carbonate [Calcium] 1,000 mg PO BID 11/17/16 [History] Ferrous Sulfate 325 mg PO DAILY 11/17/16 [History] Gabapentin [Neurontin] 300 mg PO Q8H 11/17/16 [History] Urea 1 appl TP BID 11/17/16 [History] Vardenafil HCl [Levitra] 5 mg PO AD PRN 11/17/16 [History] Allergies IVP dye Allergy (Uncoded 10/17/15 06:47) Vomiting Review of Systems - Constitutional no chills, no fever(s) - EENT Nose, mouth and throat: no dizziness - Cardiovascular no chest pain - Respiratory no dyspnea - Gastrointestinal no nausea, no vomiting - Genitourinary no flank pain, no hematuria - Musculoskeletal no back pain - Integumentary no erythema, no rash - Neurological no weakness - Psychiatric no suicidal ideation - Hematologic/Lymphatic no easy bleeding - Allergic/Immunologic no wheezing Exam Initial Vital Signs Temp Pulse Resp BP Pulse Ox 98.2 F 95 18 107/69 98 11/17/16 17:50 11/17/16 17:50 11/17/16 17:50 11/17/16 17:50 11/17/16 17:50 - General physical appearance Present: well developed, well nourished, no distress - Eyes Present: other (right eye is absent). Absent: icteric - ENT Present: normal nares - Neck Present: no masses - Respiratory Present: normal respiratory effort - Cardiovascular Cardiovascular exam IM: RRR - Abdomen Abdomen: Present: soft Urology Results - Labs 11/18/16 11:26 11/18/16 11:26 Abnormal lab results RBC 2.96 M/mcL (4.19-5.50) L 11/18/16 11:26 Hgb 7.4 g/dL (12.9-16.9) L 11/18/16 11:26 Hct 24.8 % (37.5-50.1) L 11/18/16 11:26 MCH 25.0 pg (28.0-33.3) L 11/18/16 11:26 MCHC 29.8 g/dL (31.6-35.5) L 11/18/16 11:26 RDW 16.2 % (11.5-14.5) H 11/18/16 11:26 Nucleated RBCs/100 WBC 0.5 /100 WBC (0) H 11/18/16 11:26 PT 13.7 Seconds (9.4-12.1) H 11/18/16 11:26 APTT 36.7 Seconds (26.0-36.0) H 11/18/16 11:26 VBG pH 7.28 pH Units (7.32-7.42) L 11/17/16 23:21 VBG pCO2 58 mmHg (41-51) H 11/17/16 23:21 VBG pO2 49 mmHg (25-40) H 11/17/16 23:21 VBG HCO3 27.3 mEq/L (21-27) H 11/17/16 23:21 Potassium 5.6 mEq/L (3.5-4.5) H 11/18/16 11:26 BUN 63 mg/dL (8-26) H 11/18/16 11:26 Creatinine 1.89 mg/dL (0.72-1.25) H 11/18/16 11:26 Est GFR ( Amer) 43 (> 60) L 11/18/16 11:26 Est GFR (Non-Af Amer) 36 (> 60) L 11/18/16 11:26 BUN/Creatinine Ratio 33 (6-26) H 11/18/16 11:26 Glucose 110 mg/dL (70-99) H 11/18/16 11:26 Calculated Osmolality 305 (280-300) H 11/18/16 11:26 Phosphorus 5.0 mg/dL (2.3-4.7) H 11/18/16 11:26 Troponin I 0.09 ng/mL (0-0.03) H* 11/17/16 23:21 B-Natriuretic Peptide 511 pg/mL (0-100) H 11/18/16 11:26 Albumin 3.3 g/dL (3.5-5.0) L 11/18/16 11:26 Albumin/Globulin Ratio 1.0 (1.1-2.2) L 11/18/16 11:26 HDL Cholesterol 28 mg/dL (40-59) L 11/18/16 11:26 Diabetes panel 11/17/16 11/18/16 Range/Units 23:21 11:26 Sodium 138 (136-145) mEq/L Potassium 5.6 H (3.5-4.5) mEq/L Chloride 106 (98-109) mEq/L Carbon Dioxide 23 (19-29) mEq/L BUN 63 H (8-26) mg/dL Creatinine 1.89 H (0.72-1.25) mg/dL Glucose 110 H (70-99) mg/dL Calcium 9.1 (8.6-10.8) mg/dL AST 28 23 (5-34) Units/L ALT 14 12 (0-55) Units/L Alkaline Phosphatase 113 105 (38-126) Units/L Albumin 3.7 3.3 L (3.5-5.0) g/dL Triglycerides 107 (< 150) mg/dL HDL Cholesterol 28 L (40-59) mg/dL Thyroid panel 11/18/16 Range/Units 11:26 TSH 0.776 (0.350-4.840) mcIU/mL Calcium panel 11/17/16 11/18/16 Range/Units 23:21 11:26 Calcium 9.1 (8.6-10.8) mg/dL Phosphorus 5.0 H (2.3-4.7) mg/dL Albumin 3.7 3.3 L (3.5-5.0) g/dL Pituitary panel 11/18/16 Range/Units 11:26 Sodium 138 (136-145) mEq/L Potassium 5.6 H (3.5-4.5) mEq/L Chloride 106 (98-109) mEq/L Carbon Dioxide 23 (19-29) mEq/L BUN 63 H (8-26) mg/dL Creatinine 1.89 H (0.72-1.25) mg/dL Glucose 110 H (70-99) mg/dL Calcium 9.1 (8.6-10.8) mg/dL TSH 0.776 (0.350-4.840) mcIU/mL Adrenal panel 11/17/16 11/18/16 Range/Units 23:21 11:26 Sodium 138 (136-145) mEq/L Potassium 5.6 H (3.5-4.5) mEq/L Chloride 106 (98-109) mEq/L Carbon Dioxide 23 (19-29) mEq/L BUN 63 H (8-26) mg/dL Creatinine 1.89 H (0.72-1.25) mg/dL Glucose 110 H (70-99) mg/dL Calcium 9.1 (8.6-10.8) mg/dL Total Bilirubin 0.3 0.3 (0.2-1.2) mg/dL AST 28 23 (5-34) Units/L ALT 14 12 (0-55) Units/L Alkaline Phosphatase 113 105 (38-126) Units/L Albumin 3.7 3.3 L (3.5-5.0) g/dL All other labs normal. - Imaging CT scan - abdomen: report reviewed, image reviewed CT scan - pelvis: report reviewed, image reviewed US - abdomen: report reviewed, image reviewed US - pelvic: report reviewed, image reviewed Consult Discharge Plan - Plan [facility]errals: [facility] [Primary Care Provider] -
[2016-11-18 18:41] LABS: Prostate Specific Antigen 1053.38 ng/mL (0.00-4.00)
[2016-11-18] MEDS: Sodium Bicarbonate 100 MEQ in 0.45 % Sodium Chloride 1,000 ML IVC SCH ×2 (20:20→21:16)
[2016-11-18] MEDS ORDERED: APIXABAN 2.5 MG TABLET PO SCH (21:00)
[2016-11-19 05:09] LABS: Basophils # 0.1 K/mcL (0.0-0.2); Basophils % 0.6 %; Eosinophils # 0.3 K/mcL (0.0-0.6); Eosinophils % 3.3 %; Hematocrit 25.6 % (37.5-50.1); Hemoglobin 7.7 g/dL (12.9-16.9); Immature Granulocytes % 0.4 % (0-4); Lymphocytes # 1.3 K/mcL (0.6-4.6); Lymphocytes % 14.6 %; Mean Corpuscular HGB Conc 30.1 g/dL (31.6-35.5); Mean Corpuscular Hemoglobin 25.2 pg (28.0-33.3); Mean Corpuscular Volume 83.9 fL (83.0-100.0); Mean Platelet Volume 10.9 fL (9.4-12.4); Monocytes # 0.7 K/mcL (0.0-1.3); Monocytes % 7.9 %; Neutrophils # 6.6 K/mcL (1.6-8.9); Nucleated Red Blood Cells 0.3 /100 WBC (0); Platelet Count 236 K/mcL (140-400); Red Blood Count 3.05 M/mcL (4.19-5.50); Red Cell Distribution Width 16.4 % (11.5-14.5); Segmented Neutrophils % 73.2 %
[2016-11-19 05:12] LABS: Calcium 8.9 mg/dL (8.6-10.8); Potassium 4.6 mEq/L (3.5-4.5)
[2016-11-19] MEDS: Ipratropium/Albuterol Neb 3 ML IH SCH ×4 (05:26→23:27)
[2016-11-19 05:46] LABS: Folate 11.9 ng/mL (7.0-31.4)
[2016-11-19] MEDS: Sodium Bicarbonate 100 MEQ in 0.45 % Sodium Chloride 1,000 ML IVC SCH (07:40)
[2016-11-19] MEDS: Insulin LISPRO 300 UNITS/3 ML VIAL SQ SCH ×7 (09:17→21:35)
[2016-11-19] MEDS: Gabapentin 100 MG CAPSULE PO SCH ×3 (09:17→21:19)
[2016-11-19] MEDS: Bicalutamide 50 MG TABLET PO SCH (09:18)
[2016-11-19] MEDS: Artificial Tears SOLN 15 ML BOTTLE BOTH EYES SCH ×4 (09:18→21:20)
[2016-11-19] MEDS: Pyridoxine (B-6) 50 MG TABLET PO SCH (09:20)
[2016-11-19] MEDS: Capsaicin 0.025% 60 GM TUBE TP SCH ×4 (09:21→21:34)
[2016-11-19] MEDS: Ascorbic Acid 500 MG TABLET PO SCH (09:21)
--- NOTE | 2016-11-19 09:33 | Urology Progress Note ---
Date of Encounter: 11/19/16 Time of Encounter: 09:28 - Assessment and Plan (1) Hydronephrosis Current Visit: Yes Status: Acute Assessment and plan: IR consult ordered. Will try to place left stent or neph tube tomorrow. Qualifiers: Hydronephrosis type: unspecified Qualified Code(s): N13.30 - Unspecified hydronephrosis (2) Prostate cancer metastatic to intrapelvic lymph node Current Visit: Yes Status: Chronic Assessment and plan: I will initiate ketoconazole treatment to lower his testosterone level. He has normal liver function tests. Will closely follow. Progress Note Narrative: Doing okay today. PSA was 1053 with a testosterone at 180. I called in patient pharmacy and payment/authorization for leuprolide is a challenge. Objective Initial Vital Signs Temp Pulse Resp BP Pulse Ox 98.2 F 95 18 107/69 98 11/17/16 17:50 11/17/16 17:50 11/17/16 17:50 11/17/16 17:50 11/17/16 17:50 - General physical appearance Present: well developed, well nourished, no distress - Respiratory Present: normal respiratory effort - Abdomen Present: soft - Labs 11/19/16 04:25 11/19/16 04:25 Diabetes panel 11/18/16 11/19/16 Range/Units 11:26 04:25 Sodium 138 139 (136-145) mEq/L Potassium 5.6 H 4.6 H D (3.5-4.5) mEq/L Chloride 106 103 (98-109) mEq/L Carbon Dioxide 23 26 (19-29) mEq/L BUN 63 H 52 H (8-26) mg/dL Creatinine 1.89 H 1.73 H (0.72-1.25) mg/dL Glucose 110 H 92 (70-99) mg/dL Calcium 9.1 8.9 (8.6-10.8) mg/dL AST 23 (5-34) Units/L ALT 12 (0-55) Units/L Alkaline Phosphatase 105 (38-126) Units/L Albumin 3.3 L (3.5-5.0) g/dL Triglycerides 107 (< 150) mg/dL HDL Cholesterol 28 L (40-59) mg/dL Thyroid panel 11/18/16 Range/Units 11:26 TSH 0.776 (0.350-4.840) mcIU/mL Calcium panel 11/18/16 11/19/16 Range/Units 11:26 04:25 Calcium 9.1 8.9 (8.6-10.8) mg/dL Phosphorus 5.0 H (2.3-4.7) mg/dL Albumin 3.3 L (3.5-5.0) g/dL Pituitary panel 11/18/16 11/19/16 Range/Units 11:26 04:25 Sodium 138 139 (136-145) mEq/L Potassium 5.6 H 4.6 H D (3.5-4.5) mEq/L Chloride 106 103 (98-109) mEq/L Carbon Dioxide 23 26 (19-29) mEq/L BUN 63 H 52 H (8-26) mg/dL Creatinine 1.89 H 1.73 H (0.72-1.25) mg/dL Glucose 110 H 92 (70-99) mg/dL Calcium 9.1 8.9 (8.6-10.8) mg/dL TSH 0.776 (0.350-4.840) mcIU/mL Adrenal panel 11/18/16 11/19/16 Range/Units 11:26 04:25 Sodium 138 139 (136-145) mEq/L Potassium 5.6 H 4.6 H D (3.5-4.5) mEq/L Chloride 106 103 (98-109) mEq/L Carbon Dioxide 23 26 (19-29) mEq/L BUN 63 H 52 H (8-26) mg/dL Creatinine 1.89 H 1.73 H (0.72-1.25) mg/dL Glucose 110 H 92 (70-99) mg/dL Calcium 9.1 8.9 (8.6-10.8) mg/dL Total Bilirubin 0.3 (0.2-1.2) mg/dL AST 23 (5-34) Units/L ALT 12 (0-55) Units/L Alkaline Phosphatase 105 (38-126) Units/L Albumin 3.3 L (3.5-5.0) g/dL - VTE Documentation of Mechanical Device: Graduated compression elastic hosiery Consult Discharge Plan - Plan Referrals: [facility] [Primary Care Provider] -
[2016-11-19] MEDS: Capsaicin 0.025% 60 GM TUBE TP PRN (12:10)
--- NOTE | 2016-11-19 13:41 | Internal Med Progress Note ---
Date of Encounter: 11/19/16 Time of Encounter: 09:00 - Assessment and plan (1) Prostate cancer metastatic to intrapelvic lymph node Current Visit: Yes Status: Chronic Assessment and plan: Patient has seen oncologist as outpatient before. We will continue supportive treatment, oncology consult on case. (2) Acute kidney injury superimposed on CKD Current Visit: Yes Status: Acute Assessment and plan: Patient has history of CKD. US renal shows hydronephrosis, urology consult called. Pt has signs of dehydration with high BUN/Cr ratio, will continue hydrate pt and f/u renal function. (3) Anemia Current Visit: Yes Status: Acute Assessment and plan: Laboratory data supported iron deficiency. FOBT negative. Hemoglobin is stable after transfusion. Will continue iron pills Qualifiers: Anemia type: iron deficiency Iron deficiency anemia type: inadequate dietary iron intake Qualified Code(s): D50.8 - Other iron deficiency anemias (4) Bladder outlet obstruction Current Visit: Yes Status: Acute Assessment and plan: Urology consult. Pt has prostate cancer. Plan for nephrostomy for left hydronephrosis (5) Hydronephrosis Current Visit: Yes Status: Acute Assessment and plan: Urology consult. Plan for left nephrostomy Qualifiers: Hydronephrosis type: unspecified Qualified Code(s): N13.30 - Unspecified hydronephrosis (6) Hyperkalemia Current Visit: Yes Status: Acute Assessment and plan: Kayexalate po once. Improved after treatment (7) Chronic a-fib Current Visit: Yes Status: Chronic Assessment and plan: Rate is well controlled. Pt was on eliquis, hold now b/o low H/H. possibly restart if hemoglobin is stable (8) Congestive heart failure Current Visit: Yes Status: Chronic Assessment and plan: No signs of exacerbation. Continue home med. Qualifiers: Congestive heart failure type: unspecified congestive heart failure type Congestive heart failure chronicity: unspecified congestive heart failure chronicity Qualified Code(s): I50.9 - Heart failure, unspecified (9) Morbid obesity with BMI of 40.0-44.9, adult Current Visit: Yes Status: Chronic Assessment and plan: Need lifestyle modification. (10) MARTHA treated with BiPAP Current Visit: Yes Status: Chronic Assessment and plan: Continue night BiPAP (11) Acute encephalopathy Current Visit: No Status: Acute Assessment and plan: Multifactorial. Possibly due to dehydration and anemia. Treat underlying disease , close monitoring. Improved after treatment. (12) DVT prophylaxis Current Visit: Yes Status: Acute Assessment and plan: EPCD (13) Diabetes Current Visit: Yes Status: Acute Assessment and plan: Covered by basal and sliding scale insulin. Qualifiers: Diabetes mellitus type: type 2 Diabetes mellitus complication status: with kidney complications Diabetes mellitus complication detail: with chronic kidney disease Diabetes mellitus termite exterminator helper insulin use: with termite exterminator helper use Chronic kidney disease stage: stage 3 (moderate) Qualified Code(s): E11.22 - Type 2 diabetes mellitus with diabetic chronic kidney disease; N18.3 - Chronic kidney disease, stage 3 (moderate); Z79.4 - [facility] (current) use of insulin (14) COPD (chronic obstructive pulmonary disease) Current Visit: Yes Status: Acute Assessment and plan: Stable, continue home med and nebulizer PRN. Qualifiers: COPD type: emphysema Emphysema type: other Qualified Code(s): J43.8 - Other emphysema - Time Spent With Patient 25 - 35 minutes - Subjective Interval history: Patient is a 71-year-old male admitted for general weakness and fatigue. His past medical history is significant for end stage prostate cancer with bone metastasis. Other past medical history includes the COPD, CHF, CVA, diabetes, hyperlipidemia, hypertension, CKD Patient was seen and examined. He is more awake and alert today, orientated 3. Not complaining chest pain or SOB. Hemoglobin is stable after transfusion. FOBT negative. Renal function improved after hydration. Anemia workup shows Eliza deficiency will give Iron pills. Urology, oncology, and the palliative care consult appreciated. Plan for IR nephrostomy or stent tomorrow. - Constitutional Vitals: Temp Pulse Resp BP Pulse Ox 97.9 F 91 22 130/85 95 11/19/16 11:57 11/19/16 11:57 11/19/16 11:57 11/19/16 11:57 11/19/16 11:57 General appearance: Present: mild distress, A&O X 3, morbidly obese - Head Head exam: Present: atraumatic, normocephalic - Eye Eye exam: Present: PERRL, conjuntiva pink, sclera anicteric Pupils: Present: PERRL - Neck Neck exam general surgery: Present: supple, trachea midline. Absent: lymphadenopathy - Respiratory Respiratory exam: Present: CTAB. Absent: accessory muscle use, rales, rhonchi, wheezes - Cardiovascular Cardiovascular exam: Present: RRR, +S1, +S2. Absent: diastolic murmur, gallop, rubs, systolic murmur - GI/Abdominal GI/Abdominal exam: Present: normal bowel sounds, soft, no peritoneal signs. Absent: distended, tenderness - Extremities Exam Extremities exam: Present: warm, radial pulses palpable and symetrical. Absent : calf tenderness, cyanotic, pedal edema - Neurological Exam Neurological exam: Present: CN II-XII intact, oriented X3, no focal deficits. Absent: pronater drift, facial droop, speech deficit - Skin Skin exam: Present: dry, intact Internal Medicine: Result - Labs CBC & Chem 7: 11/19/16 04:25 11/19/16 04:25 Labs: Short CBC 11/19/16 Range/Units 04:25 WBC 9.0 (4.3-11.1) K/mcL Hgb 7.7 L (12.9-16.9) g/dL Hct 25.6 L (37.5-50.1) % Plt Count 236 (140-400) K/mcL Neutrophils # 6.6 (1.6-8.9) K/mcL BMP 11/19/16 04:25 Sodium 139 Potassium 4.6 H D Chloride 103 Carbon Dioxide 26 BUN 52 H Creatinine 1.73 H Glucose 92 Calcium 8.9 - ABG Interpretation ABG results: PT/INR, D-dimer PT 13.7 Seconds (9.4-12.1) H 11/18/16 11:26 - Impressions Impressions Retroperitoneum Ultrasound 11/18/16 09:00 IMPRESSION: Moderate left-sided hydronephrosis and proximal hydroureter. No significant right-sided hydronephrosis. A left ureteral jet could not be documented. Large postvoid residual within the urinary bladder. D/ / 11/18/2016 10:12:47 Pramod Mcdermott MD / luciano Interpreting Provider: Pramod Mcdermott MD - VTE Documentation of Mechanical Device: Graduated compression elastic hosiery Consult Discharge Plan - Plan [facility]errals: [facility] [Primary Care Provider] -
--- NOTE | 2016-11-19 14:14 | Palliative - Consult Note ---
Date of Encounter: 11/19/16 Time of Encounter: 08:05 - Assessment and Plan (1) Cancer associated pain Current Visit: Yes Status: Acute Assessment and plan: Pain is under good control at this time. Patient is on morphine however his kidney function marginal for this if it worsens at all I would recommend switching over to oxycodone we will watch. She is not requiring any pain medication at all at this time therefore will D the morphine in place. (2) Goals of care, counseling/discussion Current Visit: Yes Status: Acute Assessment and plan: Opting for full CODE STATUS at this time wishes to discuss this further with his family. Oral goal of care is to continue any kind of chemotherapy or radiation therapy that is recommended by the cancer Center if they think they can make things better for him. (3) Acute kidney injury superimposed on CKD Current Visit: Yes Status: Acute Assessment and plan: This appears to slowly be getting better. Patient will have a nephrostomy tube placed tomorrow. GFR is currently 48. (4) Bladder outlet obstruction Current Visit: Yes Status: Acute Assessment and plan: The patient is now urinating, and she is following. Plan is for nephrostomy tomorrow. (5) COPD (chronic obstructive pulmonary disease) Current Visit: Yes Status: Acute Assessment and plan: On 02, and BiPAP. Current medications per hospitalist team Qualifiers: COPD type: emphysema Emphysema type: other Qualified Code(s): J43.8 - Other emphysema (6) Prostate cancer metastatic to intrapelvic lymph node Current Visit: Yes Status: Chronic Assessment and plan: The patient wishes to continue aggressive care for his metastatic prostate cancer if this is possible. Palliative-CN HPI - Data of Consult Patient: new to practice Requesting Physician: Brenden Garcia MD Primary Care Provider[facility] - Consult Narrative Palliative Care/Comfort Measures: Palliative care Reason for consult: Goals of care, CODE STATUS History of present illness: Mr. Blas is a 71 year old male Who was sent to the emergency room at [place] by [facility] to having a history of stage IV metastatic prostate cancer status post and therapy. Increasing abdominal pain she had a scan which showed a blockage. Patient was sent for further evaluation of acute hydronephrosis. It was felt that the hydronephrosis is probably secondary to lymphadenopathy due to the prostate malignancy. The patient states he has been having some discomfort over the right hand side in the flank area which is a deep ache only there once in a while. It is better with repositioning and come on because of movement. Does not cause any shortness of breath or nausea vomiting, it does not move around. At its worst it is probably a 6 or 7/10. Patient had been treated aggressively for his prostate cancer in the past with radiation interested in seeing what else might be available. He is also been found to have symptomatic anemia. P as he also has metastases to the bone. As not been particular symptomatic with these. CC: Brenden Garcia MD Abdominal pain Past Med Surg Social Fam HX - Past Medical History Medical history: arthritis (Arthritis. History of gout.), atrial fibrillation ( Chronic anticoagulation.), cancer (Stage IV prostate cancer, metastatic. S/P sternal pain radiation to the prostate, Lupron injections and Casodex.), CHF, COPD (Chronic hypercapnic respiratory failure. MARTHA; nocturnal CPAP dependent. OHS.), coronary artery disease, CVA (Remote left caudate head and right basal ganglia lacunar infarcts lacunar infarcts noted at CT head 2015), diabetes, GERD , hyperlipidemia, hypertension, malignancy (Metastatic prostate cancer diagnosed 2010), myocardial infarction, osteoporosis, renal disease (CKD III. hydronephrosis secondary to ureteral entrapment by retroperitoneal adenopathy. Erectile dysfunction.), valvular heart disease (Aortic valve stenosis status post valve replacement), other (Anemia of chronic disease. Iron deficiency. Peripheral neuropathy. Circadian rhythm sleep disorder. Morbid Obesity/ Pickwickian syndrome.) Psychiatric history: anxiety, depression, other - Past Surgical History Surgical History: coronary bypass (CABG), heart valve replacement, other ( ) - Social History Smoking Status: Never smoker Smokeless Tobacco Status: No Alcohol use: none Drug use: none - Family History Father Living Status: Cause of : heart attack Hx Family Cardiac Disorders: Yes Medications and Allergies Acetaminophen [Tylenol] 325 mg PO BID PRN 10/17/15 [History] Allopurinol [Zyloprim 300 MG] 300 mg PO DAILY 10/17/15 [History] Ascorbic Acid [Vitamin C] 1,000 mg PO DAILY 10/17/15 [History] Atorvastatin Calcium [Lipitor] 40 mg PO QPM 10/17/15 [History] Carboxymethylcellulos/Glycerin [Refresh Optive Eye Drops] 1 drop BOTH EYES QID 10/17/15 [History] Docusate Sodium [Colace] 100 mg PO BID 10/17/15 [History] Insulin Glargine [Lantus] 56 unit SQ DAILY 10/17/15 [History] Ipratropium/Albuterol Neb [Duoneb] 3 ml IH QID PRN 10/17/15 [History] Lisinopril [Zestril] 5 mg PO BID 10/17/15 [History] Modafinil [Provigil] 400 mg PO QAM 10/17/15 [History] Multivitamin [Multivitamins] 1 tab PO QAM 10/17/15 [History] Omeprazole [PriLOSEC] 40 mg PO DAILY 10/17/15 [History] Petrolatum,Hydrophilic [Aloe [place]] 1 appl TP AD PRN 10/17/15 [History] Saliva Stimulant [Biotene Moisturizing Rinse] 3 - 5 spray PO BID 10/17/15 [ History] Sertraline [Zoloft] 100 mg PO QAM 10/17/15 [History] Benzocaine/Menthol [Sore Throat Lozenge] 1 each MM QID PRN 05/24/16 [History] Bicalutamide [Casodex] 50 mg PO DAILY 05/24/16 [History] Capsaicin 0.025% [Trixaicin] 1 appl TP QID 05/24/16 [History] Pyridoxine HCl [Vitamin B-6] 100 mg PO DAILY 05/24/16 [History] Water for Irrigation (sterile) [Water for irrigation (sterile)] 0 ml .ROUTE BID 05/24/16 [History] Apixaban [Eliquis] 2.5 mg PO BID 11/17/16 [History] Calcium Carbonate [Calcium] 1,000 mg PO BID 11/17/16 [History] Ferrous Sulfate 325 mg PO DAILY 11/17/16 [History] Gabapentin [Neurontin] 300 mg PO Q8H 11/17/16 [History] Urea 1 appl TP BID 11/17/16 [History] Vardenafil HCl [Levitra] 5 mg PO AD PRN 11/17/16 [History] Allergies IVP dye Allergy (Uncoded 10/17/15 06:47) Vomiting - Constitutional Constitutional ROS PAL: decreased appetite - EENT Eyes: dry eye, pain, no discharge Ears: no ear discharge, no ear pain Ears, nose, mouth, throat: no dysphagia, no epistaxis, no mouth pain, no nasal congestion - Cardiovascular Cardiovascular ROS: no chest pain, no chest pain at rest, no chest pain with activity - Respiratory Respiratory: no cough, no dyspnea, no hemoptysis - Gastrointestinal Gastrointestinal: abdominal pain, constipation, no cramping, no diarrhea, no nausea, no vomiting - Genitourinary Genitourinary ROS male: no urinary frequency, no urinary hesitancy - Musculoskeletal Musculoskeletal ROS IM: back pain, myalgias - Integumentary ROS Integumentary: no rash, no sores - Neurological Neurological ROS: no dizziness, no headache(s), no lack of coordination, no paresthesias - Psychiatric Psychiatric general PM: change in appetite, no confusion (Did have some confusion but this has cleared), no homicidal ideation, no suicidal ideation - Endocrine Endocrine IM: other ([place] for diabetes) Palliative Care-Exam - Constitutional Vitals: Temp Pulse Resp BP Pulse Ox 97.9 F 91 22 130/85 95 11/19/16 11:57 11/19/16 11:57 11/19/16 11:57 11/19/16 11:57 11/19/16 11:57 General appearance: Present: no acute distress - Head Head Exam: Present: atraumatic, normal inspection - Eye Eye exam: Present: EOMI, normal appearance - ENT ENT exam: Present: mucous membranes moist - Expanded ENT Exam Ear exam: Present: external canal tenderness - Neck Neck exam: Present: normal inspection - Respiratory Respiratory exam: Present: decreased breath sounds - Cardiovascular Cardiovascular exam: Present: RRR - GI/Abdominal Exam GI/Abdominal exam: Present: normal bowel sounds, soft. Absent: tenderness - Extremities Exam Extremities exam: Present: normal inspection. Absent: pedal edema, tenderness - Psychiatric Psychiatric exam: Present: normal affect, normal mood. Absent: agitated, anxious - Skin Skin exam: Present: dry, warm. Absent: rash Internal Medicine - CN: Reslt - Labs CBC & Chem 7: 11/19/16 04:25 11/19/16 04:25 Labs: Short CBC 11/19/16 Range/Units 04:25 WBC 9.0 (4.3-11.1) K/mcL Hgb 7.7 L (12.9-16.9) g/dL Hct 25.6 L (37.5-50.1) % Plt Count 236 (140-400) K/mcL Neutrophils # 6.6 (1.6-8.9) K/mcL BMP 11/19/16 04:25 Sodium 139 Potassium 4.6 H D Chloride 103 Carbon Dioxide 26 BUN 52 H Creatinine 1.73 H Glucose 92 Calcium 8.9 - ABG Interpretation ABG results: PT/INR, D-dimer PT 13.7 Seconds (9.4-12.1) H 11/18/16 11:26 - Impressions Impressions Retroperitoneum Ultrasound 11/18/16 09:00 IMPRESSION: Moderate left-sided hydronephrosis and proximal hydroureter. No significant right-sided hydronephrosis. A left ureteral jet could not be documented. Large postvoid residual within the urinary bladder. D/ / 11/18/2016 10:12:47 Pramod Mcdermott MD / luciano Interpreting Provider: Pramod Mcdermott MD Consult Discharge Plan - Plan Referrals: [facility] [Primary Care Provider] - Palliative Quality Palliative Quality: Screen for Code Status: Yes, Screen for Goals of Care: Yes, Screen for Pain: Yes, If Pain Regimen Started, Initiate Bowel Regimen: Yes, Screen for Nausea/Vomitting: Yes Code Status: 11/17/16 22:39 Resuscitation Status: Active [RES] Routine Comment: Resuscitation Status: Full Code
[2016-11-19] MEDS ORDERED: 0.9 % Sodium Chloride 250 ML ONE (18:47)
[2016-11-19] MEDS: Insulin DETEMIR 100 UNIT/ML X5UNITS SQ SCH (21:20)
[2016-11-20 04:06] LABS: Basophils % 0.4 %; Eosinophils # 0.3 K/mcL (0.0-0.6); Eosinophils % 3.1 %; Hematocrit 29.5 % (37.5-50.1); Hemoglobin 8.8 g/dL (12.9-16.9); Immature Granulocytes % 0.4 % (0-4); Mean Corpuscular HGB Conc 29.8 g/dL (31.6-35.5); Mean Corpuscular Hemoglobin 25.2 pg (28.0-33.3); Mean Corpuscular Volume 84.5 fL (83.0-100.0); Mean Platelet Volume 10.4 fL (9.4-12.4); Monocytes # 0.8 K/mcL (0.0-1.3); Monocytes % 7.9 %; Neutrophils # 7.3 K/mcL (1.6-8.9); Nucleated Red Blood Cells 0.3 /100 WBC (0); Platelet Count 248 K/mcL (140-400); Red Blood Count 3.49 M/mcL (4.19-5.50); Red Cell Distribution Width 16.3 % (11.5-14.5); Segmented Neutrophils % 77.2 %
[2016-11-20 04:21] LABS: Calcium 9.2 mg/dL (8.6-10.8)
[2016-11-20 04:22] LABS: Potassium 4.8 mEq/L (3.5-4.5)
[2016-11-20] MEDS: Ipratropium/Albuterol Neb 3 ML IH SCH ×4 (05:25→22:39)
[2016-11-20] MEDS: Gabapentin 100 MG CAPSULE PO SCH ×3 (05:41→23:03)
[2016-11-20] MEDS: Insulin LISPRO 300 UNITS/3 ML VIAL SQ SCH ×7 (07:34→20:38)
[2016-11-20] MEDS: Bicalutamide 50 MG TABLET PO SCH (09:21)
[2016-11-20] MEDS: Pyridoxine (B-6) 50 MG TABLET PO SCH (09:22)
[2016-11-20] MEDS: Ascorbic Acid 500 MG TABLET PO SCH (09:22)
[2016-11-20] MEDS: Capsaicin 0.025% 60 GM TUBE TP SCH ×4 (10:19→20:48)
[2016-11-20] MEDS: Artificial Tears SOLN 15 ML BOTTLE BOTH EYES SCH ×4 (10:19→20:48)
--- NOTE | 2016-11-20 10:43 | Event Note ---
Date of Encounter: 11/20/16 Time of Encounter: 10:41 Mr. Blas is sitting up in a chair eating his morning meal. Plans for nephrostomy tube placement on hold until tomorrow. He reports adequate pain management and has only utilized one dose of oxycodone in the past 48 hours. His last BM was yesterday. Code status/goals of care discussion yesterday, and patient would like to continue with aggressive measures. The palliative care team will follow at a distance at this time. Please contact if needed.
--- NOTE | 2016-11-20 12:01 | Internal Med Progress Note ---
Date of Encounter: 11/20/16 Time of Encounter: 09:00 - Assessment and plan (1) Prostate cancer metastatic to intrapelvic lymph node Current Visit: Yes Status: Chronic Assessment and plan: Patient has seen oncologist as outpatient before. We will continue supportive treatment, oncology consult on case. (2) Acute kidney injury superimposed on CKD Current Visit: Yes Status: Acute Assessment and plan: Patient has history of CKD. US renal shows hydronephrosis, urology consult called. Pt has signs of dehydration with high BUN/Cr ratio, will continue hydrate pt and f/u renal function. Renal function improved after treatment. (3) Anemia Current Visit: Yes Status: Acute Assessment and plan: Laboratory data supported iron deficiency. FOBT negative. Hemoglobin is stable after transfusion. Will continue iron pills Qualifiers: Anemia type: iron deficiency Iron deficiency anemia type: inadequate dietary iron intake Qualified Code(s): D50.8 - Other iron deficiency anemias (4) Bladder outlet obstruction Current Visit: Yes Status: Acute Assessment and plan: Urology consult. Pt has prostate cancer. Plan for nephrostomy for left hydronephrosis (5) Hydronephrosis Current Visit: Yes Status: Acute Assessment and plan: Urology consult. Plan for left nephrostomy Qualifiers: Hydronephrosis type: unspecified Qualified Code(s): N13.30 - Unspecified hydronephrosis (6) Hyperkalemia Current Visit: Yes Status: Acute Assessment and plan: Kayexalate po once. Improved after treatment (7) Chronic a-fib Current Visit: Yes Status: Chronic Assessment and plan: Rate is well controlled. Pt was on eliquis, hold now b/o low H/H at beginning and planned procedure (nephrostomy now). possibly restart after nephrostomy. (8) Congestive heart failure Current Visit: Yes Status: Chronic Qualifiers: Congestive heart failure type: unspecified congestive heart failure type Congestive heart failure chronicity: unspecified congestive heart failure chronicity Qualified Code(s): I50.9 - Heart failure, unspecified (9) Morbid obesity with BMI of 40.0-44.9, adult Current Visit: Yes Status: Chronic Assessment and plan: Need lifestyle modification. (10) MARTHA treated with BiPAP Current Visit: Yes Status: Chronic Assessment and plan: Continue night BiPAP (11) Acute encephalopathy Current Visit: No Status: Acute Assessment and plan: Multifactorial. Possibly due to dehydration and anemia. Treat underlying disease , close monitoring. Improved after treatment. (12) DVT prophylaxis Current Visit: Yes Status: Acute Assessment and plan: EPCD (13) Diabetes Current Visit: Yes Status: Acute Assessment and plan: Covered by basal and sliding scale insulin. Qualifiers: Diabetes mellitus type: type 2 Diabetes mellitus complication status: with kidney complications Diabetes mellitus complication detail: with chronic kidney disease Diabetes mellitus senior care insulin use: with senior care use Chronic kidney disease stage: stage 3 (moderate) Qualified Code(s): E11.22 - Type 2 diabetes mellitus with diabetic chronic kidney disease; N18.3 - Chronic kidney disease, stage 3 (moderate); Z79.4 - long term (current) use of insulin (14) COPD (chronic obstructive pulmonary disease) Current Visit: Yes Status: Acute Assessment and plan: Stable, continue home med and nebulizer PRN. Qualifiers: COPD type: emphysema Emphysema type: other Qualified Code(s): J43.8 - Other emphysema - Time Spent With Patient 25 - 35 minutes - Subjective Interval history: Patient is a 71-year-old male admitted for general weakness and fatigue. His past medical history is significant for end stage prostate cancer with bone metastasis. Other past medical history includes the COPD, CHF, CVA, diabetes, hyperlipidemia, hypertension, CKD Patient was seen and examined. He is more awake and alert today, orientated 3. Not complaining chest pain or SOB. Hemoglobin is stable after transfusion. FOBT negative. Renal function improved after hydration. Anemia workup shows Eliza deficiency will give Iron pills. Pt will have nephrostomy for left hydronephrosis, procedure postponed because pt is allergic to contrast, need pre medication. Pre medication medrol 32mg x 2 and benadryl 50 mg po once placed per IR instruction. Consider resume Eliquis after procedure. - Constitutional Vitals: Temp Pulse Resp BP Pulse Ox 98.4 F 114 18 107/77 94 L 11/20/16 11:24 11/20/16 11:24 11/20/16 11:24 11/20/16 11:24 11/20/16 11:24 General appearance: Present: mild distress, A&O X 3, morbidly obese - Head Head exam: Present: atraumatic, normocephalic - Eye Eye exam: Present: PERRL, conjuntiva pink, sclera anicteric Pupils: Present: PERRL - Neck Neck exam general surgery: Present: supple, trachea midline. Absent: lymphadenopathy - Respiratory Respiratory exam: Present: CTAB. Absent: accessory muscle use, rales, rhonchi, wheezes - Cardiovascular Cardiovascular exam: Present: RRR, +S1, +S2. Absent: diastolic murmur, gallop, rubs, systolic murmur - GI/Abdominal GI/Abdominal exam: Present: normal bowel sounds, soft, no peritoneal signs. Absent: distended, tenderness - Extremities Exam Extremities exam: Present: warm, radial pulses palpable and symetrical. Absent : calf tenderness, cyanotic, pedal edema - Neurological Exam Neurological exam: Present: CN II-XII intact, oriented X3, no focal deficits. Absent: pronater drift, facial droop, speech deficit - Skin Skin exam: Present: dry, intact Internal Medicine: Result - Labs CBC & Chem 7: 11/20/16 03:25 11/20/16 03:25 Labs: Short CBC 11/20/16 Range/Units 03:25 WBC 9.5 (4.3-11.1) K/mcL Hgb 8.8 L (12.9-16.9) g/dL Hct 29.5 L (37.5-50.1) % Plt Count 248 (140-400) K/mcL Neutrophils # 7.3 (1.6-8.9) K/mcL BMP 11/20/16 03:25 Sodium 139 Potassium 4.8 H Chloride 103 Carbon Dioxide 26 BUN 41 H D Creatinine 1.59 H Glucose 98 Calcium 9.2 - ABG Interpretation ABG results: PT/INR, D-dimer PT 13.7 Seconds (9.4-12.1) H 11/18/16 11:26 - Impressions Impressions Retroperitoneum Ultrasound 11/18/16 09:00 IMPRESSION: Moderate left-sided hydronephrosis and proximal hydroureter. No significant right-sided hydronephrosis. A left ureteral jet could not be documented. Large postvoid residual within the urinary bladder. D/ / 11/18/2016 10:12:47 Pramod Mcdermott MD / luciano Interpreting Provider: Pramod Mcdermott MD - VTE Documentation of Mechanical Device: Graduated compression elastic hosiery Consult Discharge Plan - Plan Referrals: [facility] [Primary Care Provider] -
--- NOTE | 2016-11-20 13:29 | Urology Progress Note ---
Date of Encounter: 11/20/16 Time of Encounter: 13:28 - Assessment and Plan (1) Hydronephrosis Current Visit: Yes Status: Acute Assessment and plan: Plan for left antegrade stent vs left nephrostomy tube tomorrow. Qualifiers: Hydronephrosis type: unspecified Qualified Code(s): N13.30 - Unspecified hydronephrosis (2) Prostate cancer metastatic to intrapelvic lymph node Current Visit: Yes Status: Chronic Assessment and plan: Oncology consult ordered. Lupron given today. Progress Note Narrative: Doing well today. IR was not able to place nephrostomy tube or stent today as he wasn't premedicated for his IVP dye allergy. He did receive a dose of lupron. No other issues. Objective Initial Vital Signs Temp Pulse Resp BP Pulse Ox 98.2 F 95 18 107/69 98 11/17/16 17:50 11/17/16 17:50 11/17/16 17:50 11/17/16 17:50 11/17/16 17:50 - General physical appearance Present: well developed, well nourished, no distress - Respiratory Present: normal respiratory effort - Abdomen Present: soft - Labs 11/20/16 03:25 11/20/16 03:25 Diabetes panel 11/20/16 Range/Units 03:25 Sodium 139 (136-145) mEq/L Potassium 4.8 H (3.5-4.5) mEq/L Chloride 103 (98-109) mEq/L Carbon Dioxide 26 (19-29) mEq/L BUN 41 H D (8-26) mg/dL Creatinine 1.59 H (0.72-1.25) mg/dL Glucose 98 (70-99) mg/dL Calcium 9.2 (8.6-10.8) mg/dL Calcium panel 11/20/16 Range/Units 03:25 Calcium 9.2 (8.6-10.8) mg/dL Pituitary panel 11/20/16 Range/Units 03:25 Sodium 139 (136-145) mEq/L Potassium 4.8 H (3.5-4.5) mEq/L Chloride 103 (98-109) mEq/L Carbon Dioxide 26 (19-29) mEq/L BUN 41 H D (8-26) mg/dL Creatinine 1.59 H (0.72-1.25) mg/dL Glucose 98 (70-99) mg/dL Calcium 9.2 (8.6-10.8) mg/dL Adrenal panel 11/20/16 Range/Units 03:25 Sodium 139 (136-145) mEq/L Potassium 4.8 H (3.5-4.5) mEq/L Chloride 103 (98-109) mEq/L Carbon Dioxide 26 (19-29) mEq/L BUN 41 H D (8-26) mg/dL Creatinine 1.59 H (0.72-1.25) mg/dL Glucose 98 (70-99) mg/dL Calcium 9.2 (8.6-10.8) mg/dL - VTE Documentation of Mechanical Device: Graduated compression elastic hosiery Consult Discharge Plan - Plan [facility]: [facility] [[facility] Care Provider] -
--- NOTE | 2016-11-20 15:40 | Electrocardiograph Report ---
[place] [address] Test Date: 2016-11-17 Pat Name: Travis Blas Department: 104 Room: 2N06 Gender: M [employer]pper [employer]: : 1945 Requested By: Jasen Kern Order Number: [id number] Reading MD: Doug Larose MD Measurements Intervals [place] Rate: 85 P: ME: 0 QRS: -26 QRSD: 105 T: 96 QT: 380 QTc: 422 Interpretive Statements SUPRAVENTRICULAR RHYTHM, PROBABLY SINUS BORDERLINE LEFT AXIS DEVIATION BASELINE ARTIFACT Electronically Signed On 11-20-2016 15:38:14 EST by Doug Larose MD
[2016-11-20] MEDS: Insulin DETEMIR 100 UNIT/ML X5UNITS SQ SCH (20:39)
--- NOTE | 2016-11-20 20:40 | Oncology Office Consult Note ---
HPI-History of Present Illness Follow Up Date: 11/20/16 Primary Care Provider: [facility]CP [facility] Vitals and History - Height/Weight/Pain Height: 1.75 m - Pulse Oximetry Oxygen Delivery Method: Nasal Cannula Oxygen Flow Rate (LPM): 2 Fraction of Inspired Oxygen: 28 O2 Sat by Pulse Oximetry: 97 - Consciousness/Orientation Level Of Consciousness: Awake, Alert, Appropriate, Follows Commands Patient Orientation: Person, Place, Time, Name, Age, Date of , Day of Month , Day of Week, Month, Year, Time of Day - Social History Smoking Status: Never smoker Smokeless Tobacco Status: No Alcohol use PMH: none Drug use: none Review Of Systems - Exam Provider Comments:: 12 point review of systems performed with patient who has also filled out a review of systems worksheet that is filed in the electronic record. Pertinent positives are listed below. All other systems are negative: Oncology - Medications Acetaminophen [Tylenol] 325 mg PO BID PRN 10/17/15 [History] Allopurinol [Zyloprim 300 MG] 300 mg PO DAILY 10/17/15 [History] Ascorbic Acid [Vitamin C] 1,000 mg PO DAILY 10/17/15 [History] Atorvastatin Calcium [Lipitor] 40 mg PO QPM 10/17/15 [History] Carboxymethylcellulos/Glycerin [Refresh Optive Eye Drops] 1 drop BOTH EYES QID 10/17/15 [History] Docusate Sodium [Colace] 100 mg PO BID 10/17/15 [History] Insulin Glargine [Lantus] 56 unit SQ DAILY 10/17/15 [History] Ipratropium/Albuterol Neb [Duoneb] 3 ml IH QID PRN 10/17/15 [History] Lisinopril [Zestril] 5 mg PO BID 10/17/15 [History] Modafinil [Provigil] 400 mg PO QAM 10/17/15 [History] Multivitamin [Multivitamins] 1 tab PO QAM 10/17/15 [History] Omeprazole [PriLOSEC] 40 mg PO DAILY 10/17/15 [History] Petrolatum,Hydrophilic [Aloe [place]] 1 appl TP AD PRN 10/17/15 [History] Saliva Stimulant [Biotene Moisturizing Rinse] 3 - 5 spray PO BID 10/17/15 [ History] Sertraline [Zoloft] 100 mg PO QAM 10/17/15 [History] Benzocaine/Menthol [Sore Throat Lozenge] 1 each MM QID PRN 05/24/16 [History] Bicalutamide [Casodex] 50 mg PO DAILY 05/24/16 [History] Capsaicin 0.025% [Trixaicin] 1 appl TP QID 05/24/16 [History] Pyridoxine HCl [Vitamin B-6] 100 mg PO DAILY 05/24/16 [History] Water for Irrigation (sterile) [Water for irrigation (sterile)] 0 ml .ROUTE BID 05/24/16 [History] Apixaban [Eliquis] 2.5 mg PO BID 11/17/16 [History] Calcium Carbonate [Calcium] 1,000 mg PO BID 11/17/16 [History] Ferrous Sulfate 325 mg PO DAILY 11/17/16 [History] Gabapentin [Neurontin] 300 mg PO Q8H 11/17/16 [History] Urea 1 appl TP BID 11/17/16 [History] Vardenafil HCl [Levitra] 5 mg PO AD PRN 11/17/16 [History] Allergies IVP dye Allergy (Uncoded 10/17/15 06:47) Vomiting Oncology - Results - Labs Labs: Short CBC 11/20/16 Range/Units 03:25 WBC 9.5 (4.3-11.1) K/mcL Hgb 8.8 L (12.9-16.9) g/dL Hct 29.5 L (37.5-50.1) % Plt Count 248 (140-400) K/mcL Neutrophils # 7.3 (1.6-8.9) K/mcL BMP 11/20/16 03:25 Sodium 139 Potassium 4.8 H Chloride 103 Carbon Dioxide 26 BUN 41 H D Creatinine 1.59 H Glucose 98 Calcium 9.2
--- NOTE | 2016-11-20 20:45 | Oncology Inp Consult Note ---
Date of Encounter: 11/12/16 Time of Encounter: 20:44 Assessment and Plan (1) Acute on chronic renal failure Status: Acute Assessment and plan: His creatinine is already improving. Left hydronephrosis and the plan is to do left nephrostomy as mentioned (2) Prostate cancer metastatic to intrapelvic lymph node Status: Chronic Assessment and plan: PSA increased from 324 on May 2000 16,053 on November 2016. She does not seem to have major bone involvement. I have treated. Bone scan. Also would review CT scan from the [facility]. He has pelvic adenopathy which is probably contributing to hydronephrosis I am not sure if he is really castrate resistant or not. Testosterone levels are not in castrate levels. He probably is not getting Lupron as he could not recollected. I am not sure how compliant he is with Casodex a either. She got a dose of Lupron 22.5 mg today 11/20/2016. We will see him back in the office and continue to monitor the PSA. Of testosterone drops below 50 and PSA continued to be high would consider adding Abiraterarone with prednisone instead of Casodex - Data of Consult Patient: known to practice within the last 3 years Requesting Physician: Brenden Garcia MD Primary Care Provider: [facility]CP [facility] - Consult Narrative Reason for consult: Metastatic prostate cancer History of present illness: Mr. Blas is a 71 year old male transferred from the [facility]. According to him he had a [facility] scan [facility] before [facility] which showed worsening of left hydronephrosis. Evaluated by Dr. Ledezma and the plan is to do left antegrade stent or nephrostomy tube per IR. He has to be premedicated for IVP dye allergy 1.Mr. Blas was through the [facility] and diagnosed with prostate cancer around 2010. At that time he received external beam radiation to the prostate. Since then he progressed to stage IV. He has been getting Lupron injections and started on Casodex November 2015. Apparently PSA jumped from 10 2014 to around 300 05/27/2016. CT abdomen and May 2016 showed enlarging lymph node near the rectum size about 2 x 3.5 cm. Few other small pelvic lymph nodes Rest of the abdomen unremarkable. CT chest unremarkable whole-body nuclear medicine bone scan and Lobo negative 05/23/2016 Testosterone level 104 on 05/24/2016 and 180 on 11/18/2016 indicating not complete androgen suppression On questioning he could not tell if he is getting Lupron injections or not 2. Acute kidney injury creatinine improved to 1.5 from 2 on 11/17/2016 MRI brain without contrast negative 05/23/2016. Anemia hemoglobin 8. Hemoglobin slowly declined from range in November 2015. Iron level mildly low with ferritin 35 area B12 folate TSH normal. Will do serum protein electrophoresis and light chains Past Med Surg Social Fam HX - Past Medical History Medical history: arthritis (Arthritis. History of gout.), atrial fibrillation ( Chronic anticoagulation.), cancer (Stage IV prostate cancer, metastatic. S/P sternal pain radiation to the prostate, Lupron injections and Casodex.), CHF, COPD (Chronic hypercapnic respiratory failure. MARTHA; nocturnal CPAP dependent. OHS.), coronary artery disease, CVA (Remote left caudate head and right basal ganglia lacunar infarcts lacunar infarcts noted at CT head 2015), diabetes, GERD , hyperlipidemia, hypertension, malignancy (Metastatic prostate cancer diagnosed 2010), myocardial infarction, osteoporosis, renal disease (CKD III. hydronephrosis secondary to ureteral entrapment by retroperitoneal adenopathy. Erectile dysfunction.), valvular heart disease (Aortic valve stenosis status post valve replacement), other (Anemia of chronic disease. Iron deficiency. Peripheral neuropathy. Circadian rhythm sleep disorder. Morbid Obesity/ Pickwickian syndrome.) Psychiatric history: anxiety, depression, other - Past Surgical History Surgical History: coronary bypass (CABG), heart valve replacement, other ( ) - Social History Smoking Status: Never smoker Smokeless Tobacco Status: No Alcohol use: none Drug use: none - Family History Father Living Status: Cause of : heart attack Hx Family Cardiac Disorders: Yes Medications and Allergies Acetaminophen [Tylenol] 325 mg PO BID PRN 10/17/15 [History] Allopurinol [Zyloprim 300 MG] 300 mg PO DAILY 10/17/15 [History] Ascorbic Acid [Vitamin C] 1,000 mg PO DAILY 10/17/15 [History] Atorvastatin Calcium [Lipitor] 40 mg PO QPM 10/17/15 [History] Carboxymethylcellulos/Glycerin [Refresh Optive Eye Drops] 1 drop BOTH EYES QID 10/17/15 [History] Docusate Sodium [Colace] 100 mg PO BID 10/17/15 [History] Insulin Glargine [Lantus] 56 unit SQ DAILY 10/17/15 [History] Ipratropium/Albuterol Neb [Duoneb] 3 ml IH QID PRN 10/17/15 [History] Lisinopril [Zestril] 5 mg PO BID 10/17/15 [History] Modafinil [Provigil] 400 mg PO QAM 10/17/15 [History] Multivitamin [Multivitamins] 1 tab PO QAM 10/17/15 [History] Omeprazole [PriLOSEC] 40 mg PO DAILY 10/17/15 [History] Petrolatum,Hydrophilic [Aloe [place]] 1 appl TP AD PRN 10/17/15 [History] Saliva Stimulant [Biotene Moisturizing Rinse] 3 - 5 spray PO BID 10/17/15 [ History] Sertraline [Zoloft] 100 mg PO QAM 10/17/15 [History] Benzocaine/Menthol [Sore Throat Lozenge] 1 each MM QID PRN 05/24/16 [History] Bicalutamide [Casodex] 50 mg PO DAILY 05/24/16 [History] Capsaicin 0.025% [Trixaicin] 1 appl TP QID 05/24/16 [History] Pyridoxine HCl [Vitamin B-6] 100 mg PO DAILY 05/24/16 [History] Water for Irrigation (sterile) [Water for irrigation (sterile)] 0 ml .ROUTE BID 05/24/16 [History] Apixaban [Eliquis] 2.5 mg PO BID 11/17/16 [History] Calcium Carbonate [Calcium] 1,000 mg PO BID 11/17/16 [History] Ferrous Sulfate 325 mg PO DAILY 11/17/16 [History] Gabapentin [Neurontin] 300 mg PO Q8H 11/17/16 [History] Urea 1 appl TP BID 11/17/16 [History] Vardenafil HCl [Levitra] 5 mg PO AD PRN 11/17/16 [History] Allergies IVP dye Allergy (Uncoded 10/17/15 06:47) Vomiting Review of systems: Hydronephrosis. Nonspecific abdominal pain denied major shortness of breath. No major confusion Oncology - Exam - Constitutional Vitals: Temp Pulse Resp BP Pulse Ox 98.8 F 94 18 117/83 97 11/20/16 20:41 11/20/16 20:41 11/20/16 20:41 11/20/16 20:41 11/20/16 20:41 General appearance: no acute distress Exam: GENERAL: Alert and oriented, well appearing. Mental Status: Affect appropriate for circumstances HEENT: Sclerae anicteric. No mucositis or thrush. No other oral or pharyngeal lesions or erythema. Skin: No rashes or petechiae. No evidence of skin malignancy Lymph nodes: No cervical, supraclavicular, axillary, or inguinal adenopathy. Lungs: Clear to auscultation and percussion bilaterally. Cardiovascular: Regular rate and rhythm. No gallops, murmurs, or rubs. Abdomen: Soft, nontender; no organomegaly or masses palpable. Mild lumbar/ flank tenderness left side Extremities: Trace edema. No calf swelling or tenderness. No joint deformity. Neurologic: Alert, cranial nerves II-XII intact; normal gait; no focal weakness or sensory abnormalities. Oncology - Results - Labs Labs: Short CBC 11/20/16 Range/Units 03:25 WBC 9.5 (4.3-11.1) K/mcL Hgb 8.8 L (12.9-16.9) g/dL Hct 29.5 L (37.5-50.1) % Plt Count 248 (140-400) K/mcL Neutrophils # 7.3 (1.6-8.9) K/mcL BMP 11/20/16 03:25 Sodium 139 Potassium 4.8 H Chloride 103 Carbon Dioxide 26 BUN 41 H D Creatinine 1.59 H Glucose 98 Calcium 9.2 Consult Discharge Plan - Plan [facility]errals: [facility] [Primary Care Provider] -
[2016-11-20] MEDS ORDERED: methylPREDNISolone 4 MG TABLET PO ONE (22:00)
[2016-11-21] MEDS: Gabapentin 100 MG CAPSULE PO SCH ×3 (05:03→23:10)
[2016-11-21] MEDS: Ipratropium/Albuterol Neb 3 ML IH SCH ×4 (05:40→22:05)
[2016-11-21 05:44] LABS: Basophils % 0.2 %; Eosinophils % 0.1 %; Hematocrit 30.4 % (37.5-50.1); Immature Granulocytes % 0.5 % (0-4); Lymphocytes # 0.5 K/mcL (0.6-4.6); Lymphocytes % 4.6 %; Mean Corpuscular HGB Conc 29.6 g/dL (31.6-35.5); Mean Corpuscular Hemoglobin 25.1 pg (28.0-33.3); Mean Corpuscular Volume 84.7 fL (83.0-100.0); Mean Platelet Volume 10.6 fL (9.4-12.4); Monocytes # 0.1 K/mcL (0.0-1.3); Monocytes % 1.1 %; Neutrophils # 9.7 K/mcL (1.6-8.9); Platelet Count 246 K/mcL (140-400); Red Blood Count 3.59 M/mcL (4.19-5.50); Segmented Neutrophils % 93.5 %
[2016-11-21 05:58] LABS: Calcium 9.6 mg/dL (8.6-10.8); Potassium 5.5 mEq/L (3.5-4.5)
[2016-11-21] MEDS ORDERED: methylPREDNISolone 4 MG TABLET PO ONE (08:00)
[2016-11-21] MEDS: Insulin LISPRO 300 UNITS/3 ML VIAL SQ SCH ×7 (08:27→21:17)
[2016-11-21] MEDS: Pyridoxine (B-6) 50 MG TABLET PO SCH (08:30)
[2016-11-21] MEDS: Ascorbic Acid 500 MG TABLET PO SCH (08:30)
[2016-11-21] MEDS: Artificial Tears SOLN 15 ML BOTTLE BOTH EYES SCH ×4 (08:30→21:19)
[2016-11-21] MEDS: Capsaicin 0.025% 60 GM TUBE TP SCH ×4 (08:30→21:19)
[2016-11-21] MEDS: Bicalutamide 50 MG TABLET PO SCH (08:35)
--- NOTE | 2016-11-21 09:20 | Internal Med Progress Note ---
Date of Encounter: 11/21/16 Time of Encounter: 09:15 - Assessment and plan (1) Acute kidney injury superimposed on CKD Current Visit: Yes Status: Acute Assessment and plan: GEORGE on CKD III Post-renal from SANCHEZ from compression from tumor mets For nephrostomy tube placement today There could have been component of dehydration on admission, creatinine and GFR are improving, continue to monitor (2) Bladder outlet obstruction Current Visit: Yes Status: Acute Assessment and plan: Urology is following for nephrostomy today (3) COPD (chronic obstructive pulmonary disease) Current Visit: Yes Status: Chronic Assessment and plan: Stable, continue home med and nebulizer PRN. Qualifiers: COPD type: emphysema Emphysema type: other Qualified Code(s): J43.8 - Other emphysema (4) Cancer associated pain Current Visit: Yes Status: Chronic Assessment and plan: Continue current meds, palliative input appreciated (5) Diabetes Current Visit: Yes Status: Acute Assessment and plan: Overcontrolled, A1C 5.6. Continue basal and sliding scale insulin, monitor closely. Qualifiers: Diabetes mellitus type: type 2 Diabetes mellitus complication status: with kidney complications Diabetes mellitus complication detail: with chronic kidney disease Diabetes mellitus rat exterminator insulin use: with rat exterminator use Chronic kidney disease stage: stage 3 (moderate) Qualified Code(s): E11.22 - Type 2 diabetes mellitus with diabetic chronic kidney disease; N18.3 - Chronic kidney disease, stage 3 (moderate); Z79.4 - custodial (current) use of insulin (6) Hyperkalemia Current Visit: Yes Status: Acute Assessment and plan: K 5.5 this a.m Will give 30g Kayexelate po Will discontinue lisinopril for now Monitor closely (7) Symptomatic anemia Current Visit: Yes Status: Acute Assessment and plan: s/p 3 uints RBCs, Hb stable now (8) Chronic a-fib Current Visit: Yes Status: Chronic Assessment and plan: Rate is well controlled. Pt was on eliquis, resume after procedure (9) Congestive heart failure Current Visit: Yes Status: Chronic Assessment and plan: No signs of exacerbation. Continue home med. Qualifiers: Congestive heart failure type: unspecified congestive heart failure type Congestive heart failure chronicity: unspecified congestive heart failure chronicity Qualified Code(s): I50.9 - Heart failure, unspecified (10) Morbid obesity with BMI of 40.0-44.9, adult Current Visit: Yes Status: Chronic Assessment and plan: Need lifestyle modification. (11) MARTHA treated with BiPAP Current Visit: Yes Status: Chronic Assessment and plan: Continue night BiPAP (12) Prostate cancer metastatic to intrapelvic lymph node Current Visit: Yes Status: Chronic Assessment and plan: Oncology review appreciated. continue supportive treatment. (13) Acute encephalopathy Current Visit: Yes Status: Resolved Assessment and plan: Resolved, was Multifactorial. Possibly due to dehydration and anemia. (14) Anophthalmos of right eye Current Visit: Yes Status: Chronic Assessment and plan: Fall precautions - Subjective Interval history: Initial encounter 71-year-old male with admitting diagnoses of symptomatic DEJON s/p RBCs ( presenting Hb of 6.3), Left hydronephrosis, GEORGE on CKD He has a PMH of 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, with compression features, COPD, CHFpEF, Afib on Eliquis, s/p Aortic Valve Replacement, s/p CVA, R anophthalmos, DM, HTN, HLD, CKD III He is seen at bedside today, no new complains, awaiting nephrostomy tube placement - Constitutional Vitals: Temp Pulse Resp BP Pulse Ox 98.2 F 91 14 124/81 98 11/21/16 07:36 11/21/16 07:36 11/21/16 07:36 11/21/16 07:36 11/21/16 07:36 General appearance: Present: A&O X 3, morbidly obese, pleasant, no acute distress - Head Head exam: Present: atraumatic - Eye Additional comments: Right blind eye, anophthalmos, left eye DEIRDRE, sclera anicteric. - Neck Neck exam general surgery: Present: supple, trachea midline. Absent: lymphadenopathy - Respiratory Respiratory exam: Present: CTAB. Absent: accessory muscle use, rales, rhonchi, wheezes Additional comments: Chest wall scar for AVR - Cardiovascular Cardiovascular exam: Present: irregular rhythm, +S1, +S2. Absent: diastolic murmur, gallop, JVD, rubs, systolic murmur - GI/Abdominal GI/Abdominal exam: Present: normal bowel sounds, soft, no peritoneal signs. Absent: distended, tenderness - Extremities Exam Extremities exam: Present: pedal edema (trace edema bilaterally, possibly from dependence), warm, radial pulses palpable and symetrical. Absent: calf tenderness, cyanotic - Neurological Exam Neurological exam: Present: alert, oriented X3, no focal deficits. Absent: pronater drift, facial droop, speech deficit - Skin Skin exam: Present: dry Internal Medicine: Result - Labs CBC & Chem 7: 11/21/16 05:25 11/21/16 05:25 Labs: Short CBC 11/21/16 Range/Units 05:25 WBC 10.4 (4.3-11.1) K/mcL Hgb 9.0 L (12.9-16.9) g/dL Hct 30.4 L (37.5-50.1) % Plt Count 246 (140-400) K/mcL Neutrophils # 9.7 H (1.6-8.9) K/mcL BMP 11/21/16 05:25 Sodium 137 Potassium 5.5 H Chloride 102 Carbon Dioxide 27 BUN 37 H Creatinine 1.58 H Glucose 168 H Calcium 9.6 - ABG Interpretation ABG results: PT/INR, D-dimer PT 13.7 Seconds (9.4-12.1) H 11/18/16 11:26 - VTE Documentation of Mechanical Device: Intermittent pneumatic compression device Consult Discharge Plan - Plan [facility]errals: [facility] [Primary Care Provider] -
[2016-11-21] MEDS ORDERED: 0.9 % Sodium Chloride 500 ML ONE ×2 (10:18→11:15)
[2016-11-21] MEDS ORDERED: Ampicillin/Sulbactam 1,500 MG in 0.9 % Sodium Chloride Mini Bag 100 ML IVPB ONE (10:54)
[2016-11-21] MEDS ORDERED: *HR* Midazolam HCl 2 MG/2 ML VIAL IV PRN (10:55)
[2016-11-21] MEDS: *HR* FentaNYL (PF) 100 MCG/2 ML VIAL IV PRN ×2 (11:26→11:33)
--- NOTE | 2016-11-21 11:50 | IR Procedure Note ---
Date of procedure: 11/21/16 Consent Obtained: Written consent Timeout: Correct patient and procedure verified, Correct site verified, Time out performed, Skin prep completed Local anesthetic: Lidocaine 1% Indications: Left hydronephrosis Procedure Performed: Left PCN placement Site/Technique: Left posterior flank Results/Findings: 10fr drain placed sonographically Estimated blood loss (cc): 1 Complications: None; Tolerated procedure well Post Procedure Treatment Plan: Monitoring in pts room.
--- NOTE | 2016-11-21 17:24 | Urology Progress Note ---
Date of Encounter: 11/21/16 Time of Encounter: 17:22 - Assessment and Plan (1) Hydronephrosis Current Visit: Yes Status: Acute Assessment and plan: Status post nephrostomy tube placement. Doing well. We will look to perform an antegrade stent placement in 2-4 weeks. He can be discharged home tomorrow if he is otherwise doing well and his electrolytes are stable. He can follow up with me in 1-2 weeks to coordinate the antegrade stent placement. Qualifiers: Hydronephrosis type: unspecified Qualified Code(s): N13.30 - Unspecified hydronephrosis (2) Prostate cancer metastatic to intrapelvic lymph node Current Visit: Yes Status: Chronic Assessment and plan: He received a dose of Lupron yesterday. We will follow his PSA. Progress Note Narrative: 71-year-old man with locally advanced prostate cancer and left hydronephrosis. He had a left nephrostomy tube placed today. His urine is somewhat bloody, but he is doing well. Objective Initial Vital Signs Temp Pulse Resp BP Pulse Ox 98.2 F 95 18 107/69 98 11/17/16 17:50 11/17/16 17:50 11/17/16 17:50 11/17/16 17:50 11/17/16 17:50 - General physical appearance Present: well developed, well nourished, no distress - Respiratory Present: normal respiratory effort - Abdomen Present: soft - Labs 11/21/16 05:25 11/21/16 05:25 Diabetes panel 11/21/16 Range/Units 05:25 Sodium 137 (136-145) mEq/L Potassium 5.5 H (3.5-4.5) mEq/L Chloride 102 (98-109) mEq/L Carbon Dioxide 27 (19-29) mEq/L BUN 37 H (8-26) mg/dL Creatinine 1.58 H (0.72-1.25) mg/dL Glucose 168 H (70-99) mg/dL Calcium 9.6 (8.6-10.8) mg/dL Calcium panel 11/21/16 Range/Units 05:25 Calcium 9.6 (8.6-10.8) mg/dL Pituitary panel 11/21/16 Range/Units 05:25 Sodium 137 (136-145) mEq/L Potassium 5.5 H (3.5-4.5) mEq/L Chloride 102 (98-109) mEq/L Carbon Dioxide 27 (19-29) mEq/L BUN 37 H (8-26) mg/dL Creatinine 1.58 H (0.72-1.25) mg/dL Glucose 168 H (70-99) mg/dL Calcium 9.6 (8.6-10.8) mg/dL Adrenal panel 11/21/16 Range/Units 05:25 Sodium 137 (136-145) mEq/L Potassium 5.5 H (3.5-4.5) mEq/L Chloride 102 (98-109) mEq/L Carbon Dioxide 27 (19-29) mEq/L BUN 37 H (8-26) mg/dL Creatinine 1.58 H (0.72-1.25) mg/dL Glucose 168 H (70-99) mg/dL Calcium 9.6 (8.6-10.8) mg/dL - VTE Documentation of Mechanical Device: Intermittent pneumatic compression device Consult Discharge Plan - Plan Referrals: [facility],PCP [Primary Care Provider] - 12/05/16 9:15 am
[2016-11-21] MEDS: *HR* OxyCODONE Immed Rel 5 MG TABLET PO PRN (19:30)
[2016-11-21] MEDS: Insulin DETEMIR 100 UNIT/ML X5UNITS SQ SCH (21:19)
[2016-11-22] MEDS: *HR* Promethazine 25 MG/ML VIAL IVP PRN (02:49)
[2016-11-22] MEDS: Ipratropium/Albuterol Neb 3 ML IH SCH ×4 (04:00→21:58)
[2016-11-22 04:54] LABS: Basophils % 0.1 %; Eosinophils # 0.1 K/mcL (0.0-0.6); Eosinophils % 0.4 %; Hematocrit 30.3 % (37.5-50.1); Immature Granulocytes % 0.4 % (0-4); Lymphocytes # 0.8 K/mcL (0.6-4.6); Lymphocytes % 6.1 %; Mean Corpuscular HGB Conc 29.7 g/dL (31.6-35.5); Mean Corpuscular Hemoglobin 25.4 pg (28.0-33.3); Mean Corpuscular Volume 85.4 fL (83.0-100.0); Mean Platelet Volume 10.5 fL (9.4-12.4); Monocytes % 7.6 %; Neutrophils # 11.6 K/mcL (1.6-8.9); Platelet Count 233 K/mcL (140-400); Red Blood Count 3.55 M/mcL (4.19-5.50); Red Cell Distribution Width 17.4 % (11.5-14.5); Segmented Neutrophils % 85.4 %
[2016-11-22 05:07] LABS: Calcium 9.7 mg/dL (8.6-10.8); Potassium 4.7 mEq/L (3.5-4.5)
[2016-11-22] MEDS: Gabapentin 100 MG CAPSULE PO SCH ×3 (05:24→22:54)
[2016-11-22] MEDS: *HR* OxyCODONE Immed Rel 5 MG TABLET PO PRN (05:24)
[2016-11-22] MEDS: Ascorbic Acid 500 MG TABLET PO SCH (08:18)
[2016-11-22] MEDS: Pyridoxine (B-6) 50 MG TABLET PO SCH (08:19)
[2016-11-22] MEDS: Bicalutamide 50 MG TABLET PO SCH (08:23)
[2016-11-22] MEDS: amLODIPine 5 MG TABLET PO SCH (08:24)
[2016-11-22] MEDS: Insulin LISPRO 300 UNITS/3 ML VIAL SQ SCH ×7 (08:25→20:48)
[2016-11-22] MEDS: Artificial Tears SOLN 15 ML BOTTLE BOTH EYES SCH ×4 (08:27→20:48)
[2016-11-22] MEDS: Capsaicin 0.025% 60 GM TUBE TP SCH ×4 (08:28→20:49)
--- NOTE | 2016-11-22 12:30 | Internal Med Progress Note ---
Date of Encounter: 11/22/16 Time of Encounter: 11:10 - Assessment and plan (1) Acute kidney injury superimposed on CKD Current Visit: Yes Status: Acute Assessment and plan: GEORGE on CKD III Post-renal from SANCHEZ from compression from tumor mets s/p nephrostomy tube 11/21, bag with mai blood, minimal There could have been component of dehydration on admission, creatinine and GFR are improving, continue to monitor (2) Bladder outlet obstruction Current Visit: Yes Status: Acute Assessment and plan: Urology is following (3) COPD (chronic obstructive pulmonary disease) Current Visit: Yes Status: Chronic Assessment and plan: Stable, continue home med and nebulizer PRN. Qualifiers: COPD type: emphysema Emphysema type: other Qualified Code(s): J43.8 - Other emphysema (4) Cancer associated pain Current Visit: Yes Status: Chronic Assessment and plan: Continue current meds, palliative input appreciated (5) Diabetes Current Visit: Yes Status: Acute Assessment and plan: Overcontrolled, A1C 5.6. Continue basal and sliding scale insulin, monitor closely. Qualifiers: Diabetes mellitus type: type 2 Diabetes mellitus complication status: with kidney complications Diabetes mellitus complication detail: with chronic kidney disease Diabetes mellitus adjunct faculty for medical terminology insulin use: with longterm use Chronic kidney disease stage: stage 3 (moderate) Qualified Code(s): E11.22 - Type 2 diabetes mellitus with diabetic chronic kidney disease; N18.3 - Chronic kidney disease, stage 3 (moderate); Z79.4 - [facility] (current) use of insulin (6) Hyperkalemia Current Visit: Yes Status: Acute Assessment and plan: K improved form 5.5 to 4.7 Continue to hold lisinopril Monitor closely (7) Symptomatic anemia Current Visit: Yes Status: Acute Assessment and plan: s/p 3 uints RBCs, Hb stable now Monitor HB (8) Chronic a-fib Current Visit: Yes Status: Chronic Assessment and plan: Rate is well controlled. Pt was on eliquis, urostomy with mai blood, continue to hold until this begins to clear out (9) Congestive heart failure Current Visit: Yes Status: Chronic Assessment and plan: No signs of exacerbation. Continue home med. Qualifiers: Congestive heart failure type: unspecified congestive heart failure type Congestive heart failure chronicity: unspecified congestive heart failure chronicity Qualified Code(s): I50.9 - Heart failure, unspecified (10) Morbid obesity with BMI of 40.0-44.9, adult Current Visit: Yes Status: Chronic Assessment and plan: Need lifestyle modification. (11) MARTHA treated with BiPAP Current Visit: Yes Status: Chronic Assessment and plan: Continue night BiPAP (12) Prostate cancer metastatic to intrapelvic lymph node Current Visit: Yes Status: Chronic Assessment and plan: Oncology review appreciated. continue supportive treatment. (13) Acute encephalopathy Current Visit: Yes Status: Resolved Assessment and plan: Resolved, was Multifactorial. Possibly due to dehydration and anemia. (14) Anophthalmos of right eye Current Visit: Yes Status: Chronic Assessment and plan: Fall precautions (15) Leukocytosis (leucocytosis) Current Visit: Yes Status: Acute Assessment and plan: NO fever or hypothermia, no chills, no new respiratory symptoms, HB stable Possibly from stress, Send UA Encourage liberal fluid intake Continue to monitor Qualifiers: Leukocytosis type: unspecified Qualified Code(s): D72.829 - Elevated white blood cell count, unspecified - Subjective Interval history: 71-year-old male with admitting diagnoses of symptomatic DEJON s/p RBCs ( presenting Hb of 6.3), Left hydronephrosis, GEORGE on CKD He has a PMH of 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, with compression features, COPD, CHFpEF, Afib on Eliquis, s/p Aortic Valve Replacement, s/p CVA, R anophthalmos, DM, HTN, HLD, CKD III He is seen at bedside today s/p urostomy Patient reports being in pain He denies cough, worsening SOB, denies hematuria, states his urine is "yellow" He has a new leukocytosis, no fever or chills, will observe for now, will send UA - Constitutional Vitals: Temp Pulse Resp BP Pulse Ox 98.4 F 98 18 97/81 96 11/22/16 11:44 11/22/16 11:44 11/22/16 11:44 11/22/16 11:44 11/22/16 11:44 General appearance: Present: A&O X 3, morbidly obese, no acute distress, answers questions appropriately - Head Head exam: Present: atraumatic, normocephalic - Eye Additional comments: R anophthalmos - Neck Neck exam general surgery: Present: supple, trachea midline. Absent: lymphadenopathy - Respiratory Respiratory exam: Present: CTAB. Absent: accessory muscle use, rales, rhonchi, wheezes Additional comments: scar - Cardiovascular Cardiovascular exam: Present: RRR, +S1, +S2. Absent: diastolic murmur, gallop, rubs, systolic murmur - Additional comments: Left nephrostomy bag with mai blood - Extremities Exam Extremities exam: Present: warm, radial pulses palpable and symetrical. Absent : calf tenderness, cyanotic, pedal edema - Neurological Exam Neurological exam: Present: CN II-XII intact, oriented X3, no focal deficits. Absent: pronater drift, facial droop, speech deficit - Skin Skin exam: Present: dry, intact Internal Medicine: Result - Labs CBC & Chem 7: 11/22/16 04:21 11/22/16 04:21 Labs: Short CBC 11/22/16 Range/Units 04:21 WBC 13.6 H (4.3-11.1) K/mcL Hgb 9.0 L (12.9-16.9) g/dL Hct 30.3 L (37.5-50.1) % Plt Count 233 (140-400) K/mcL Neutrophils # 11.6 H (1.6-8.9) K/mcL BMP 11/22/16 04:21 Sodium 139 Potassium 4.7 H Chloride 102 Carbon Dioxide 28 BUN 41 H Creatinine 1.53 H Glucose 132 H Calcium 9.7 - ABG Interpretation ABG results: PT/INR, D-dimer PT 13.7 Seconds (9.4-12.1) H 11/18/16 11:26 - Impressions Impressions Guidance Needle Placement Ultrasound 11/21/16 00:00 IMPRESSION: Successful percutaneous nephrostomy tube placement, with a 10 [place] nephrostomy catheter placed. D/ / Pramod Vega MD / Pramod Vega MD Interpreting Provider: Pramod Vega MD Nephrostomy 11/21/16 00:00 IMPRESSION: Successful percutaneous nephrostomy tube placement, with a 10 [place] nephrostomy catheter placed. D/ / Pramod Vega MD / Pramod Vega MD Interpreting Provider: Pramod Vega MD - VTE Documentation of Mechanical Device: Intermittent pneumatic compression device Consult Discharge Plan - Plan Referrals: AMADA,PCP [Primary Care Provider] - 12/05/16 9:15 am
[2016-11-22 13:16] LABS: Bilirubin,Urine Negative (Negative); Blood,Urine Negative (Negative); Clarity,Urine Clear (Clear); Color,Urine Yellow (Yellow); Glucose,Urine (UA) Normal (Normal); Ketones,Urine Negative (Negative); Leukocyte Esterase,Urine Negative (Negative); Nitrite,Urine Negative (Negative); Protein,Urine Trace mg/dL (Neg-Trace); Urobilinogen,Urine Normal (Normal)
[2016-11-22 13:18] LABS: Bacteria,Urine None Seen per hpf (None-Few); Hyaline Casts,Urine None Seen per lpf (None-Few); RBC,Urine 0-3 per hpf (0-3); Squamous Epithelial Cell,Urine Moderate per lpf (None-Few); WBC,Urine 0-3 per hpf (0-3)
--- NOTE | 2016-11-22 14:00 | Event Note ---
Date of Encounter: 11/22/16 Time of Encounter: 13:59 Discussed case with hospitalist. Pain management stable with only 3 doses of oxycodone during this admission. Palliative care will sign off. director of rehabilitative services will continue to follow for discharge planning needs.
--- NOTE | 2016-11-22 17:28 | Urology Progress Note ---
Date of Encounter: 11/22/16 Time of Encounter: 17:27 - Assessment and Plan (1) Hydronephrosis Current Visit: Yes Status: Acute Assessment and plan: Will irrigate neph tube. Monitor Creatinine and K+. Qualifiers: Hydronephrosis type: unspecified Qualified Code(s): N13.30 - Unspecified hydronephrosis (2) Prostate cancer metastatic to intrapelvic lymph node Current Visit: Yes Status: Chronic Assessment and plan: Appreciate medical oncology consultation. Progress Note Narrative: Status post left neph tube placement. Urine is bloody from nephrostomy tube. Will have RN irrigate 3x/day. Objective Initial Vital Signs Temp Pulse Resp BP Pulse Ox 98.2 F 95 18 107/69 98 11/17/16 17:50 11/17/16 17:50 11/17/16 17:50 11/17/16 17:50 11/17/16 17:50 - General physical appearance Present: well developed, well nourished, no distress - Respiratory Present: normal respiratory effort - Abdomen Present: soft - Genitourinary Urine Appearance: Present: Hematuria (left neph tube in place with bloody urine. ) - Labs 11/22/16 04:21 11/22/16 04:21 Diabetes panel 11/22/16 Range/Units 04:21 Sodium 139 (136-145) mEq/L Potassium 4.7 H (3.5-4.5) mEq/L Chloride 102 (98-109) mEq/L Carbon Dioxide 28 (19-29) mEq/L BUN 41 H (8-26) mg/dL Creatinine 1.53 H (0.72-1.25) mg/dL Glucose 132 H (70-99) mg/dL Calcium 9.7 (8.6-10.8) mg/dL Calcium panel 11/22/16 Range/Units 04:21 Calcium 9.7 (8.6-10.8) mg/dL Pituitary panel 11/22/16 Range/Units 04:21 Sodium 139 (136-145) mEq/L Potassium 4.7 H (3.5-4.5) mEq/L Chloride 102 (98-109) mEq/L Carbon Dioxide 28 (19-29) mEq/L BUN 41 H (8-26) mg/dL Creatinine 1.53 H (0.72-1.25) mg/dL Glucose 132 H (70-99) mg/dL Calcium 9.7 (8.6-10.8) mg/dL Adrenal panel 11/22/16 Range/Units 04:21 Sodium 139 (136-145) mEq/L Potassium 4.7 H (3.5-4.5) mEq/L Chloride 102 (98-109) mEq/L Carbon Dioxide 28 (19-29) mEq/L BUN 41 H (8-26) mg/dL Creatinine 1.53 H (0.72-1.25) mg/dL Glucose 132 H (70-99) mg/dL Calcium 9.7 (8.6-10.8) mg/dL - VTE Documentation of Mechanical Device: Intermittent pneumatic compression device Consult Discharge Plan - Plan Referrals: AMADAPCP [Primary Care Provider] - 12/05/16 9:15 am
[2016-11-22] MEDS: Acetaminophen 325 MG TABLET PO PRN (17:43)
[2016-11-22] MEDS: Insulin DETEMIR 100 UNIT/ML X5UNITS SQ SCH (20:52)
[2016-11-23] MEDS: Ipratropium/Albuterol Neb 3 ML IH SCH ×3 (05:02→15:49)
[2016-11-23] MEDS: Gabapentin 100 MG CAPSULE PO SCH ×3 (05:26→23:14)
[2016-11-23 06:11] LABS: Basophils % 0.4 %; Eosinophils # 0.3 K/mcL (0.0-0.6); Eosinophils % 2.5 %; Hematocrit 28.1 % (37.5-50.1); Hemoglobin 8.4 g/dL (12.9-16.9); Immature Platelets 3.5 % (1.1-6.1); Lymphocytes # 0.9 K/mcL (0.6-4.6); Lymphocytes % 9.2 %; Mean Corpuscular HGB Conc 29.9 g/dL (31.6-35.5); Mean Corpuscular Hemoglobin 25.8 pg (28.0-33.3); Mean Corpuscular Volume 86.5 fL (83.0-100.0); Mean Platelet Volume 10.2 fL (9.4-12.4); Monocytes % 9.9 %; Neutrophils # 7.9 K/mcL (1.6-8.9); Platelet Count 201 K/mcL (140-400); Red Blood Count 3.25 M/mcL (4.19-5.50); Red Cell Distribution Width 17.7 % (11.5-14.5)
[2016-11-23 06:27] LABS: Calcium 9.2 mg/dL (8.6-10.8); Potassium 4.6 mEq/L (3.5-4.5)
[2016-11-23 06:57] LABS: Basophilic Stippling 1+ (Not Present); Hypochromasia Present (Not Present); Platelet Estimate Normal (Normal); Polychromasia 1+ (Not Present)
[2016-11-23 06:58] LABS: Anisocytosis 1+ (Not Present); Poikilocytosis 1+ (Not Present)
[2016-11-23] MEDS: Insulin LISPRO 300 UNITS/3 ML VIAL SQ SCH ×7 (08:12→21:24)
[2016-11-23] MEDS: Pyridoxine (B-6) 50 MG TABLET PO SCH (08:18)
[2016-11-23] MEDS: Bicalutamide 50 MG TABLET PO SCH (08:18)
[2016-11-23] MEDS: Ascorbic Acid 500 MG TABLET PO SCH (08:18)
[2016-11-23] MEDS: amLODIPine 5 MG TABLET PO SCH (08:18)
[2016-11-23] MEDS: Capsaicin 0.025% 60 GM TUBE TP SCH ×4 (08:19→21:22)
[2016-11-23] MEDS: Artificial Tears SOLN 15 ML BOTTLE BOTH EYES SCH ×4 (08:19→21:22)
--- NOTE | 2016-11-23 09:50 | Internal Med Progress Note ---
Date of Encounter: 11/23/16 Time of Encounter: 09:46 - Assessment and plan (1) Depression Current Visit: Yes Status: Chronic Assessment and plan: Patient is already on Zoloft Psych consulted per request NO suicidal or homicidal ideation Qualifiers: Depression Type: unspecified Qualified Code(s): F32.9 - Major depressive disorder, single episode, unspecified (2) Acute kidney injury superimposed on CKD Current Visit: Yes Status: Acute Assessment and plan: GEORGE on CKD III Post-renal from SANCHEZ from compression from tumor mets s/p nephrostomy tube 11/21, bag with mai blood, minimal There could have been component of dehydration on admission, creatinine and GFR have improved and is sustained Will not check Chem anymore unless acutely indicated (3) Bladder outlet obstruction Current Visit: Yes Status: Acute Assessment and plan: Urology is following (4) COPD (chronic obstructive pulmonary disease) Current Visit: Yes Status: Chronic Assessment and plan: Stable, continue home med and nebulizer PRN. Qualifiers: COPD type: emphysema Emphysema type: other Qualified Code(s): J43.8 - Other emphysema (5) Cancer associated pain Current Visit: Yes Status: Chronic Assessment and plan: Continue current meds, palliative input appreciated (6) Diabetes Current Visit: Yes Status: Acute Assessment and plan: Overcontrolled, A1C 5.6. Continue basal and sliding scale insulin, monitor closely. Qualifiers: Diabetes mellitus type: type 2 Diabetes mellitus complication status: with kidney complications Diabetes mellitus complication detail: with chronic kidney disease Diabetes mellitus intermediate designer insulin use: with custodial use Chronic kidney disease stage: stage 3 (moderate) Qualified Code(s): E11.22 - Type 2 diabetes mellitus with diabetic chronic kidney disease; N18.3 - Chronic kidney disease, stage 3 (moderate); Z79.4 - group home (current) use of insulin (7) Hyperkalemia Current Visit: Yes Status: Acute Assessment and plan: K improved form 4.7 to 4.6 Continue to hold lisinopril Monitor closely (8) Symptomatic anemia Current Visit: Yes Status: Acute Assessment and plan: s/p 3 uints RBCs, Hb stable now Hb remains stable (9) Chronic a-fib Current Visit: Yes Status: Chronic Assessment and plan: Rate is well controlled. Pt was on eliquis, urostomy with mai blood, continue to hold until this begins to clear out (10) Congestive heart failure Current Visit: Yes Status: Chronic Assessment and plan: No signs of exacerbation. Continue home med. Qualifiers: Congestive heart failure type: unspecified congestive heart failure type Congestive heart failure chronicity: unspecified congestive heart failure chronicity Qualified Code(s): I50.9 - Heart failure, unspecified (11) Morbid obesity with BMI of 40.0-44.9, adult Current Visit: Yes Status: Chronic Assessment and plan: Need lifestyle modification. (12) MARTHA treated with BiPAP Current Visit: Yes Status: Chronic Assessment and plan: Continue night BiPAP (13) Prostate cancer metastatic to intrapelvic lymph node Current Visit: Yes Status: Chronic Assessment and plan: Oncology review appreciated. continue supportive treatment. (14) Acute encephalopathy Current Visit: Yes Status: Resolved Assessment and plan: Resolved, was Multifactorial. Possibly due to dehydration and anemia. 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 Requests psych evaluation He otherwise denies new complains follow up appreciated Nephrostomy bag still draining blood, free flowing, minimal, patient states its been flushed as recommended Patient has not been on eliquis , which was held since admission for procedure HB is stable Leukocytosis that was noted on blood work yesterday has resolved, UA is clear, without infection - Constitutional Vitals: Temp Pulse Resp BP Pulse Ox 98.9 F 88 20 117/74 99 11/23/16 07:37 11/23/16 08:26 11/23/16 07:37 11/23/16 07:37 11/23/16 07:37 General appearance: Present: A&O X 3, morbidly obese, no acute distress, answers questions appropriately - Head Head exam: Present: atraumatic - Eye Additional comments: R anophthalmos - Neck Neck exam general surgery: Present: supple, trachea midline. Absent: lymphadenopathy - Respiratory Respiratory exam: Present: CTAB. Absent: accessory muscle use, rales, rhonchi, wheezes Additional comments: Central chest scar - Cardiovascular Cardiovascular exam: Present: irregular rhythm, +S1, +S2. Absent: diastolic murmur, gallop, rubs, systolic murmur - GI/Abdominal GI/Abdominal exam: Present: normal bowel sounds, soft, no peritoneal signs. Absent: distended, tenderness - Extremities Exam Extremities exam: Present: warm, radial pulses palpable and symetrical. 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 Absent: pronater drift, facial droop, speech deficit - Skin Skin exam: Present: dry, intact Internal Medicine: Result - Labs CBC & Chem 7: 11/23/16 04:05 11/23/16 04:05 Labs: Short CBC 11/23/16 Range/Units 04:05 WBC 10.2 (4.3-11.1) K/mcL Hgb 8.4 L (12.9-16.9) g/dL Hct 28.1 L (37.5-50.1) % Plt Count 201 (140-400) K/mcL Neutrophils # 7.9 (1.6-8.9) K/mcL BMP 11/23/16 04:05 Sodium 140 Potassium 4.6 H Chloride 104 Carbon Dioxide 28 BUN 35 H Creatinine 1.42 H Glucose 107 H Calcium 9.2 Urine 11/22/16 Range/Units 12:08 Urine Color Yellow (Yellow) Urine Clarity Clear (Clear) Urine pH 6.0 (5.0-8.0) pH Units Ur Specific [place] 1.020 (1.010-1.025) Urine Protein Trace (Neg-Trace) mg/dL Urine Glucose (UA) Normal (Normal) mg/dL - ABG Interpretation ABG results: PT/INR, D-dimer PT 13.7 Seconds (9.4-12.1) H 11/18/16 11:26 - VTE Documentation of Mechanical Device: Intermittent pneumatic compression device Consult Discharge Plan - Plan Referrals: AMADA,PCP [Primary Care Provider] - 12/05/16 9:15 am
[2016-11-23] MEDS: Sennosides/Docusate Sodium TABLET PO PRN (14:13)
--- NOTE | 2016-11-23 14:50 | Urology Progress Note ---
Date of Encounter: 11/23/16 Time of Encounter: 14:48 - Assessment and Plan (1) Hydronephrosis Current Visit: Yes Status: Acute Assessment and plan: status post left neph tube. 1. Continue to follow H&H. 2. Creatinine and K+ stable. 3. Will follow along. Qualifiers: Hydronephrosis type: unspecified Qualified Code(s): N13.30 - Unspecified hydronephrosis (2) Prostate cancer metastatic to intrapelvic lymph node Current Visit: Yes Status: Chronic Assessment and plan: Will monitor for now. He received a Lupron injection. Progress Note Narrative: s/p left nephrostomy tube placement. He is having some continued bleeding from the neph tube. HCT has come down a bit. Minimal pain from the nephrostomy tube. Objective Initial Vital Signs Temp Pulse Resp BP Pulse Ox 98.2 F 95 18 107/69 98 11/17/16 17:50 11/17/16 17:50 11/17/16 17:50 11/17/16 17:50 11/17/16 17:50 - General physical appearance Present: well developed, well nourished, no distress - Respiratory Present: normal respiratory effort - Abdomen Present: soft - Genitourinary Urine Appearance: Present: Hematuria (Neph tube is bloody. It irrigates well.) - Labs 11/23/16 04:05 11/23/16 04:05 Diabetes panel 11/23/16 Range/Units 04:05 Sodium 140 (136-145) mEq/L Potassium 4.6 H (3.5-4.5) mEq/L Chloride 104 (98-109) mEq/L Carbon Dioxide 28 (19-29) mEq/L BUN 35 H (8-26) mg/dL Creatinine 1.42 H (0.72-1.25) mg/dL Glucose 107 H (70-99) mg/dL Calcium 9.2 (8.6-10.8) mg/dL Calcium panel 11/23/16 Range/Units 04:05 Calcium 9.2 (8.6-10.8) mg/dL Pituitary panel 11/23/16 Range/Units 04:05 Sodium 140 (136-145) mEq/L Potassium 4.6 H (3.5-4.5) mEq/L Chloride 104 (98-109) mEq/L Carbon Dioxide 28 (19-29) mEq/L BUN 35 H (8-26) mg/dL Creatinine 1.42 H (0.72-1.25) mg/dL Glucose 107 H (70-99) mg/dL Calcium 9.2 (8.6-10.8) mg/dL Adrenal panel 11/23/16 Range/Units 04:05 Sodium 140 (136-145) mEq/L Potassium 4.6 H (3.5-4.5) mEq/L Chloride 104 (98-109) mEq/L Carbon Dioxide 28 (19-29) mEq/L BUN 35 H (8-26) mg/dL Creatinine 1.42 H (0.72-1.25) mg/dL Glucose 107 H (70-99) mg/dL Calcium 9.2 (8.6-10.8) mg/dL - VTE Documentation of Mechanical Device: Intermittent pneumatic compression device Consult Discharge Plan - Plan Referrals: AMADAPCP [Primary Care Provider] - 12/05/16 9:15 am
--- NOTE | 2016-11-23 18:23 | Oncology Inp Progress Note ---
<Marvin Hernandez Jr - Last Filed: 11/24/16 08:22> Date of Encounter: 11/23/16 Time of Encounter: 17:15 (1) Prostate cancer metastatic to intrapelvic lymph node Current Visit: Yes Status: Chronic Assessment and plan: The patient at bedside eating dinner this evening. The plan is for discharge if urine is clear tomorrow. The patient will have a follow up with Dr Marcus as an outpatient next week. My angle shearer called director of pulmonary unit on 2N with date and time, 12/05/[address] Marcus will stop by and see patient this evening. Oncology: Subj Interval history: Patient sitting in bedside chair eating dinner, in no acute distress. No visitors at bedside - Constitutional Vitals: Vital Signs Temp Pulse Resp BP Pulse Ox 11/23/16 16:09 98.7 F 85 18 108/70 98 11/23/16 15:27 105 11/23/16 11:52 99.6 F 105 18 125/90 98 11/23/16 11:49 92 11/23/16 08:26 88 11/23/16 07:37 98.9 F 93 20 117/74 99 11/23/16 05:12 98.6 F 95 22 133/81 97 11/23/16 05:02 14 98 11/23/16 04:55 99 11/23/16 00:31 105 11/22/16 22:55 98.6 F 106 24 119/75 94 L 11/22/16 21:58 18 96 11/22/16 21:45 96 16 96 11/22/16 19:57 98.2 F 87 20 125/90 97 11/22/16 19:33 92 20 95 Intake and Output 11/23/16 11/23/16 11/23/16 07:59 15:59 23:59 Intake Total 600 / 600 Output Total 540 / 540 90 / 90 Balance -540 / -540 510 / 510 Intake: Oral 600 / 600 Output: Urine 500 / 500 Wound Drainage 40 / 40 90 / 90 Left Flank 40 / 40 90 / 90 Other: Meal Lunch Percent of Meal Consumed 100% Weight 138.5 kg Blood Glucose* 110 105 112 Patient Weight 11/23/16 23:59 Weight 138.5 kg General appearance: cooperative, no acute distress - Head Head exam: Present: atraumatic, normal inspection - Eye Eye exam: Present: PERRL, conjuntiva pink Pupils: Present: normal accommodation - ENT ENT exam: Present: mucous membranes moist - Neck Neck exam: Present: full ROM, normal inspection - Respiratory Respiratory exam: Present: CTAB - Cardiovascular Cardiovascular exam: Present: RRR, +S1, +S2 - GI/Abdominal GI/Abdominal exam: Present: normal bowel sounds, soft - Extremities Exam Extremities exam: Present: full ROM, normal inspection - Neurological Exam Neurological exam: Present: alert, oriented X3, no focal deficits - Psychiatric Psychiatric exam: Present: normal affect, normal mood - Skin Skin exam: Present: dry, intact, warm Oncology: Obj Data - Labs CBC & Chem 7: 11/24/16 03:01 11/23/16 04:05 Labs: Laboratory Results - last 24 hr 11/22/16 11/23/16 11/23/16 20:01 04:05 04:05 WBC 10.2 RBC 3.25 L Hgb 8.4 L Hct 28.1 L MCV 86.5 MCH 25.8 L MCHC 29.9 L RDW 17.7 H Plt Count 201 MPV 10.2 Immature Gran % 1.0 Seg Neutrophils % 77.0 Lymphocytes % 9.2 Monocytes % 9.9 Eosinophils % 2.5 Basophils % 0.4 Neutrophils # 7.9 Lymphocytes # 0.9 Monocytes # 1.0 Eosinophils # 0.3 Basophils # 0.0 Platelet Estimate Normal Immature Plt Fraction 3.5 Polychromasia 1+ A Hypochromasia Present A Poikilocytosis 1+ A Basophilic Stippling 1+ A Anisocytosis 1+ A Sodium 140 Potassium 4.6 H Chloride 104 Carbon Dioxide 28 BUN 35 H Creatinine 1.42 H Est GFR ( Amer) 60 Est GFR (Non-Af Amer) 49 L BUN/Creatinine Ratio 25 Glucose 107 H POC Glucose 130 H Calculated Osmolality 298 Calcium 9.2 - ABG Interpretation ABG results: PT/INR, D-dimer PT 13.7 Seconds (9.4-12.1) H 11/18/16 11:26 Consult Discharge Plan - Plan [facility]errals: [facility] [[facility] - 12/05/16 9:15 am <Monserrat Marcus S - Last Filed: 11/24/16 13:24> (1) Acute on chronic renal failure Current Visit: Yes Status: Acute Assessment and plan: Creatinine is improved to 1.4. Nephrostomy tube percutaneous in place (2) Prostate cancer metastatic to intrapelvic lymph node Current Visit: Yes Status: Chronic Assessment and plan: Subsequently had a Lupron injection. We will follow testosterone to make sure it gets to castrate level which is 50 or below His disease is mainly in the pelvic lymph node area. No major bony metastasis. Will consider bisphosphonates if indicated as an outpatient - Constitutional Vitals: Vital Signs Temp Pulse Resp BP Pulse Ox 11/24/16 11:11 98 F 91 20 124/72 98 11/24/16 11:00 88 11/24/16 07:56 97.3 F L 93 22 130/71 91 L 11/24/16 07:00 89 11/24/16 04:17 16 99 11/24/16 03:36 82 11/24/16 00:11 16 94 L 11/23/16 23:18 98 11/23/16 23:14 98.8 F 98 17 125/89 94 L 11/23/16 20:10 76 11/23/16 20:09 98.0 F 90 17 152/92 94 L 11/23/16 16:09 98.7 F 85 18 108/70 98 11/23/16 15:49 16 95 11/23/16 15:27 105 Intake and Output 11/23/16 11/24/16 11/24/16 23:59 07:59 15:59 Intake Total 450 / 450 500 / 500 240 / 240 Output Total 695 / 695 450 / 450 Balance -245 / -245 50 / 50 240 / 240 Intake: Oral 450 / 450 500 / 500 240 / 240 Output: Urine 625 / 625 400 / 400 Wound Drainage 70 / 70 50 / 50 Left Flank 70 / 70 50 / 50 Other: Meal Breakfast Percent of Meal Consumed 100% # Urine Diapers 1 Blood Glucose* 117 217 90 Oncology: Obj Data - Labs CBC & Chem 7: 11/24/16 03:01 11/23/16 04:05 Labs: Laboratory Results - last 24 hr 11/20/16 11/23/16 11/23/16 21:46 07:29 11:45 WBC RBC Hgb Hct MCV MCH MCHC RDW Plt Count MPV Immature Gran % Seg Neutrophils % Lymphocytes % Monocytes % Eosinophils % Basophils % Neutrophils # Lymphocytes # Monocytes # Eosinophils # Basophils # POC Glucose 110 H 105 H Free [place] LC, Quant 3.69 H Free Lambda LC, Quant 2.57 Free [place]/Lambda Ratio 1.44 11/23/16 11/23/16 11/24/16 16:13 20:14 03:01 WBC 10.2 RBC 3.06 L Hgb 8.1 L Hct 26.4 L MCV 86.3 MCH 26.5 L MCHC 30.7 L RDW 17.7 H Plt Count 173 MPV 10.3 Immature Gran % 0.3 Seg Neutrophils % 73.7 Lymphocytes % 12.6 Monocytes % 10.0 Eosinophils % 3.0 Basophils % 0.4 Neutrophils # 7.5 Lymphocytes # 1.3 Monocytes # 1.0 Eosinophils # 0.3 Basophils # 0.0 POC Glucose 112 H 117 H Free [place] LC, Quant Free [place]ambda LC, Quant Free [place]/Lambda Ratio - ABG Interpretation ABG results: PT/INR, D-dimer PT 13.7 Seconds (9.4-12.1) H 11/18/16 11:26
[2016-11-23] MEDS: Insulin DETEMIR 100 UNIT/ML X5UNITS SQ SCH (21:21)
[2016-11-23 21:22] LABS: Kappa Qnt Free Light Chains 3.69 mg/dL (0.33-1.94); Lambda Qnt Free Light Chains 2.57 mg/dL (0.57-2.63)
[2016-11-24] MEDS: Ipratropium/Albuterol Neb 3 ML IH SCH ×5 (00:11→23:00)
[2016-11-24] MEDS: Acetaminophen 325 MG TABLET PO PRN ×2 (02:48→22:29)
[2016-11-24 03:12] LABS: Basophils % 0.4 %; Eosinophils # 0.3 K/mcL (0.0-0.6); Hematocrit 26.4 % (37.5-50.1); Hemoglobin 8.1 g/dL (12.9-16.9); Immature Granulocytes % 0.3 % (0-4); Lymphocytes # 1.3 K/mcL (0.6-4.6); Lymphocytes % 12.6 %; Mean Corpuscular HGB Conc 30.7 g/dL (31.6-35.5); Mean Corpuscular Hemoglobin 26.5 pg (28.0-33.3); Mean Corpuscular Volume 86.3 fL (83.0-100.0); Mean Platelet Volume 10.3 fL (9.4-12.4); Neutrophils # 7.5 K/mcL (1.6-8.9); Platelet Count 173 K/mcL (140-400); Red Blood Count 3.06 M/mcL (4.19-5.50); Red Cell Distribution Width 17.7 % (11.5-14.5); Segmented Neutrophils % 73.7 %
[2016-11-24] MEDS: Gabapentin 100 MG CAPSULE PO SCH ×3 (05:58→21:56)
[2016-11-24] MEDS: Insulin LISPRO 300 UNITS/3 ML VIAL SQ SCH ×7 (08:03→21:37)
[2016-11-24] MEDS: Ascorbic Acid 500 MG TABLET PO SCH (08:04)
[2016-11-24] MEDS: Pyridoxine (B-6) 50 MG TABLET PO SCH (08:04)
[2016-11-24] MEDS: Bicalutamide 50 MG TABLET PO SCH (08:04)
[2016-11-24] MEDS: amLODIPine 5 MG TABLET PO SCH (08:05)
[2016-11-24] MEDS: Capsaicin 0.025% 60 GM TUBE TP SCH ×4 (08:05→21:57)
[2016-11-24] MEDS: Artificial Tears SOLN 15 ML BOTTLE BOTH EYES SCH ×4 (08:05→21:57)
--- NOTE | 2016-11-24 09:26 | Consult Note ---
Date of Encounter: 11/23/16 Time of Encounter: 15:15 Assessment & Recommendation (1) Major depression, recurrent, chronic Current visit: Yes Status: Acute Assessment & Recommendation: Patient is established under psychiatric care at the [facility] he is on medication and experiencing complicated medical issues currently he is concerned about his kidney condition and denied any hopelessness or suicidal ideation. At this time there are no acute psychiatric issue that required inpatient care and I recommend the patient continue to see his psychiatrist [facility] the [facility]. Thank you History of Present Illness Patient: new to practice Requesting Physician: Jose Hines MD Reason for consult: depression History of present illness: Mr. Blas is a 71 year old male admitted to medical service was multiple diagnosis including diabetes COPD encephalopathy morbid obesity please see internal medicine note for complete list of diagnosis. Psychiatric consultation was requested regarding depression. Review of record and evaluate impatient he stated that he is under the care of psychiatrists at the [facility] and has been on antidepressant medication for several years recently he is discouraged because of his medical complication including having a urostomy and an Stuart will adjust to his recent complication related to his kidneys and diabetes. Patient states he has been treated for depression for several years and continued to be active for his psychiatric services at the [facility]. Patient did not present any indication of suicidality or hopelessness. CC: Jose Hines MD Past Med Surg Social Fam HX - Past Medical History Medical history: arthritis (Arthritis. History of gout.), atrial fibrillation ( Chronic anticoagulation.), cancer (Stage IV prostate cancer, metastatic. S/P sternal pain radiation to the prostate, Lupron injections and Casodex.), CHF, COPD (Chronic hypercapnic respiratory failure. MARTHA; nocturnal CPAP dependent. OHS.), coronary artery disease, CVA (Remote left caudate head and right basal ganglia lacunar infarcts lacunar infarcts noted at CT head 2015), diabetes, GERD , hyperlipidemia, hypertension, malignancy (Metastatic prostate cancer diagnosed 2010), myocardial infarction, osteoporosis, renal disease (CKD III. hydronephrosis secondary to ureteral entrapment by retroperitoneal adenopathy. Erectile dysfunction.), valvular heart disease (Aortic valve stenosis status post valve replacement), other (Anemia of chronic disease. Iron deficiency. Peripheral neuropathy. Circadian rhythm sleep disorder. Morbid Obesity/ Pickwickian syndrome.) - Past Psychiatric History Psychiatric history: Reports: depression, previous psychiatric hospitalization [facility] Family psychiatric history: Unknown Family History of Suicide: Unknown - Past Surgical History Surgical History: coronary bypass (CABG), heart valve replacement, other ( ) - Social History Smoking Status: Never smoker Smokeless Tobacco Status: No Alcohol use: none Drug use: none - Family History Father Living Status: Cause of : heart attack Hx Family Cardiac Disorders: Yes Medications & Allergies Acetaminophen [Tylenol] 325 mg PO BID PRN 10/17/15 [History] Allopurinol [Zyloprim 300 MG] 300 mg PO DAILY 10/17/15 [History] Ascorbic Acid [Vitamin C] 1,000 mg PO DAILY 10/17/15 [History] Atorvastatin Calcium [Lipitor] 40 mg PO QPM 10/17/15 [History] Carboxymethylcellulos/Glycerin [Refresh Optive Eye Drops] 1 drop BOTH EYES QID 10/17/15 [History] Docusate Sodium [Colace] 100 mg PO BID 10/17/15 [History] Insulin Glargine [Lantus] 56 unit SQ DAILY 10/17/15 [History] Ipratropium/Albuterol Neb [Duoneb] 3 ml IH QID PRN 10/17/15 [History] Lisinopril [Zestril] 5 mg PO BID 10/17/15 [History] Modafinil [Provigil] 400 mg PO QAM 10/17/15 [History] Multivitamin [Multivitamins] 1 tab PO QAM 10/17/15 [History] Omeprazole [PriLOSEC] 40 mg PO DAILY 10/17/15 [History] Petrolatum,Hydrophilic [Aloe [place]] 1 appl TP AD PRN 10/17/15 [History] Saliva Stimulant [Biotene Moisturizing Rinse] 3 - 5 spray PO BID 10/17/15 [ History] Sertraline [Zoloft] 100 mg PO QAM 10/17/15 [History] Benzocaine/Menthol [Sore Throat Lozenge] 1 each MM QID PRN 05/24/16 [History] Bicalutamide [Casodex] 50 mg PO DAILY 05/24/16 [History] Capsaicin 0.025% [Trixaicin] 1 appl TP QID 05/24/16 [History] Pyridoxine HCl [Vitamin B-6] 100 mg PO DAILY 05/24/16 [History] Water for Irrigation (sterile) [Water for irrigation (sterile)] 0 ml .ROUTE BID 05/24/16 [History] Apixaban [Eliquis] 2.5 mg PO BID 11/17/16 [History] Calcium Carbonate [Calcium] 1,000 mg PO BID 11/17/16 [History] Ferrous Sulfate 325 mg PO DAILY 11/17/16 [History] Gabapentin [Neurontin] 300 mg PO Q8H 11/17/16 [History] Urea 1 appl TP BID 11/17/16 [History] Vardenafil HCl [Levitra] 5 mg PO AD PRN 11/17/16 [History] Allergies IVP dye Allergy (Uncoded 10/17/15 06:47) Vomiting Mental Status Exam Level of alertness: Alert Patient appearance: Appropriate, Obese Behavior: calm, cooperative Psychomotor activity: Slowed Eye contact: Maintains Eye Contact Mood description: Euthymic/stable Affect description: congruent with mood, constricted Speech pattern: Normal rate, Normal rhythm, Normal tone Speech volume: Soft/Quiet Thought process: Linear, Goal Oriented Thought content: No Suicidal ideation, No Homicidal ideation, No Overt delusions Perceptual disturbances: No Auditory hallucinations, No Visual hallucinations Attention span: Capable of Focused Attention Memory description: Grossly Intact Patient reliability: Not Reliable Historian Intelligence estimate: Average Judgment: Limited Insight: Partial Results - Vital Signs Vital signs: Temp Pulse Resp BP Pulse Ox 97.3 F L 93 22 130/71 91 L 11/24/16 07:56 11/24/16 07:56 11/24/16 07:56 11/24/16 07:56 11/24/16 07:56 - Labs Labs: Laboratory Last Values WBC 10.2 K/mcL (4.3-11.1) 11/24/16 03:01 RBC 3.06 M/mcL (4.19-5.50) L 11/24/16 03:01 Hgb 8.1 g/dL (12.9-16.9) L 11/24/16 03:01 Hct 26.4 % (37.5-50.1) L 11/24/16 03:01 MCV 86.3 fL (83.0-100.0) 11/24/16 03:01 MCH 26.5 pg (28.0-33.3) L 11/24/16 03:01 MCHC 30.7 g/dL (31.6-35.5) L 11/24/16 03:01 RDW 17.7 % (11.5-14.5) H 11/24/16 03:01 Plt Count 173 K/mcL (140-400) 11/24/16 03:01 MPV 10.3 fL (9.4-12.4) 11/24/16 03:01 Immature Gran % 0.3 % (0-4) 11/24/16 03:01 Seg Neutrophils % 73.7 % 11/24/16 03:01 Lymphocytes % 12.6 % 11/24/16 03:01 Monocytes % 10.0 % 11/24/16 03:01 Eosinophils % 3.0 % 11/24/16 03:01 Basophils % 0.4 % 11/24/16 03:01 Neutrophils # 7.5 K/mcL (1.6-8.9) 11/24/16 03:01 Lymphocytes # 1.3 K/mcL (0.6-4.6) 11/24/16 03:01 Monocytes # 1.0 K/mcL (0.0-1.3) 11/24/16 03:01 Eosinophils # 0.3 K/mcL (0.0-0.6) 11/24/16 03:01 Basophils # 0.0 K/mcL (0.0-0.2) 11/24/16 03:01 Nucleated RBCs/100 WBC 0.3 /100 WBC (0) H 11/20/16 03:25 Platelet Estimate Normal (Normal) 11/23/16 04:05 Immature Plt Fraction 3.5 % (1.1-6.1) 11/23/16 04:05 Polychromasia 1+ (Not Present) A 11/23/16 04:05 Hypochromasia Present (Not Present) A 11/23/16 04:05 Poikilocytosis 1+ (Not Present) A 11/23/16 04:05 Basophilic Stippling 1+ (Not Present) A 11/23/16 04:05 Anisocytosis 1+ (Not Present) A 11/23/16 04:05 PT 13.7 Seconds (9.4-12.1) H 11/18/16 11:26 INR 1.3 11/18/16 11:26 APTT 36.7 Seconds (26.0-36.0) H 11/18/16 11:26 VBG pH 7.28 pH Units (7.32-7.42) L 11/17/16 23:21 VBG pCO2 58 mmHg (41-51) H 11/17/16 23:21 VBG pO2 49 mmHg (25-40) H 11/17/16 23:21 VBG HCO3 27.3 mEq/L (21-27) H 11/17/16 23:21 Sodium 140 mEq/L (136-145) 11/23/16 04:05 Potassium 4.6 mEq/L (3.5-4.5) H 11/23/16 04:05 Chloride 104 mEq/L (98-109) 11/23/16 04:05 Carbon Dioxide 28 mEq/L (19-29) 11/23/16 04:05 BUN 35 mg/dL (8-26) H 11/23/16 04:05 Creatinine 1.42 mg/dL (0.72-1.25) H 11/23/16 04:05 Est GFR ( Amer) 60 (> 60) 11/23/16 04:05 Est GFR (Non-Af Amer) 49 (> 60) L 11/23/16 04:05 BUN/Creatinine Ratio 25 (6-26) 11/23/16 04:05 Glucose 107 mg/dL (70-99) H 11/23/16 04:05 POC Glucose 117 (58-89) H 11/23/16 20:14 Est Mean Plasma Glucose 114 mg/dl 11/17/16 19:33 Hemoglobin A1c 5.6 % (-5.6) 11/17/16 19:33 Calculated Osmolality 298 (280-300) 11/23/16 04:05 Lactic Acid 0.6 mmol/L (0.5-2.2) 11/17/16 23: Calcium 9.2 mg/dL (8.6-10.8) 11/23/16 04:05 Ionized Calcium 1.19 mmol/L (1.15-1.35) 11/17/16 23:21 Phosphorus 5.0 mg/dL (2.3-4.7) H 11/18/16 11:26 Magnesium 1.7 mg/dL (1.6-2.6) 11/18/16 11:26 Iron 52 mcg/dL (65-175) L 11/19/16 04:25 % Saturation 12 % (20-55) L 11/19/16 04:25 Transferrin 306 mg/dL (174-364) 11/19/16 04:25 Ferritin 37 ng/ml (22-275) 11/19/16 04:25 Total Bilirubin 0.3 mg/dL (0.2-1.2) 11/18/16 11:26 Direct Bilirubin 0.1 mg/dL (0.0-0.5) 11/17/16 23:21 Indirect Bilirubin 0.2 mg/dL (0.0-1.2) 11/17/16 23:21 AST 23 Units/L (5-34) 11/18/16 11:26 ALT 12 Units/L (0-55) 11/18/16 11:26 Alkaline Phosphatase 105 Units/L (38-126) 11/18/16 11:26 Creatine Kinase 144 Units/L (30-200) 11/17/16 23:21 Troponin I 0.09 ng/mL (0-0.03) H* 11/17/16 23:21 B-Natriuretic Peptide 511 pg/mL (0-100) H 11/18/16 11:26 Serum Total Protein 6.6 g/dL (6.0-8.3) 11/18/16 11:26 Albumin 3.3 g/dL (3.5-5.0) L 11/18/16 11:26 Globulin 3.3 g/dL (2.4-3.5) 11/18/16 11:26 Albumin/Globulin Ratio 1.0 (1.1-2.2) L 11/18/16 11:26 Triglycerides 107 mg/dL (< 150) 11/18/16 11:26 Cholesterol 132 mg/dL (< 200) 11/18/16 11:26 LDL Cholesterol, Calc 83 mg/dL (0-99) 11/18/16 11:26 VLDL Cholesterol, Calc 21 mg/dL (< 31) 11/18/16 11:26 HDL Cholesterol 28 mg/dL (40-59) L 11/18/16 11:26 Cholesterol/HDL Ratio 4.7 (0-4.9) 11/18/16 11:26 Prostate Specific Ag 1053.38 ng/mL (0.00-4.00) H 11/18/16 13:51 Vitamin B12 841 pg/mL (213-816) H 11/19/16 04:25 Folate 11.9 ng/mL (7.0-31.4) 11/19/16 04:25 TSH 0.776 mcIU/mL (0.350-4.840) 11/18/16 11:26 Total Testosterone 180 ng/dL (221-716) L 11/18/16 13:51 Urine Color Yellow (Yellow) 11/22/16 12:08 Urine Clarity Clear (Clear) 11/22/16 12:08 Urine pH 6.0 pH Units (5.0-8.0) 11/22/16 12:08 Ur Specific [place] 1.020 (1.010-1.025) 11/22/16 12:08 Urine Protein Trace mg/dL (Neg-Trace) 11/22/16 12:08 Urine Glucose (UA) Normal mg/dL (Normal) 11/22/16 12:08 Urine Ketones Negative mg/dL (Negative) 11/22/16 12:08 Urine Blood Negative (Negative) 11/22/16 12:08 Urine Nitrite Negative (Negative) 11/22/16 12:08 Urine Bilirubin Negative (Negative) 11/22/16 12:08 Urine Urobilinogen Normal mg/dL (Normal) 11/22/16 12:08 Ur Leukocyte Esterase Negative (Negative) 11/22/16 12:08 Urine Microscopic RBC 0-3 per hpf (0-3) 11/22/16 12:08 Urine Microscopic WBC 0-3 per hpf (0-3) 11/22/16 12:08 Ur Squamous Epith Cells Moderate per lpf (None-Few) H 11/22/16 12:08 Urine Bacteria None Seen per hpf (None-Few) 11/22/16 12:08 Hyaline Casts None Seen per lpf (None-Few) 11/22/16 12:08 Ur Culture Indicated? NO (NO) 11/22/16 12:08 Stool Occult Blood Negative (Negative) 11/17/16 20:35 Free [place] LC, Quant 3.69 mg/dL (0.33-1.94) H 11/20/16 21:46 Free Lambda LC, Quant 2.57 mg/dL (0.57-2.63) 11/20/16 21:46 Free Gold Bar/Lambda Ratio 1.44 (0.26-1.65) 11/20/16 21:46 Blood Type O POSITIVE 11/17/16 21:09 Antibody Screen NEGATIVE 11/17/16 21:09 Crossmatch See Detail 11/17/16 21:09 Consult Discharge Plan - Plan Referrals: [facility],PCP [Primary Care Provider] - 12/05/16 9:15 am
[2016-11-24] MEDS ORDERED: 0.9 % Sodium Chloride 500 ML IVC ONE (12:51)
--- NOTE | 2016-11-24 12:54 | Internal Med Progress Note ---
Date of Encounter: 11/24/16 Time of Encounter: 11:30 - Assessment and plan (1) Depression Current Visit: Yes Status: Chronic Assessment and plan: Patient is already on Zoloft Psych review appreciated Qualifiers: Depression Type: unspecified Qualified Code(s): F32.9 - Major depressive disorder, single episode, unspecified (2) Acute kidney injury superimposed on CKD Current Visit: Yes Status: Acute Assessment and plan: GEORGE on CKD III Post-renal from SANCHEZ from compression from tumor mets POD 3, s/p nephrostomy tube 11/21, bBag with mai blood, possibly mixed with urine Will give 500cc saline bolus in attempt to clear urine in bag Urology still following Chem stable, continue to monitor (3) Bladder outlet obstruction Current Visit: Yes Status: Acute Assessment and plan: Urology is following (4) COPD (chronic obstructive pulmonary disease) Current Visit: Yes Status: Chronic Assessment and plan: Stable, continue home med and nebulizer PRN. Qualifiers: COPD type: emphysema Emphysema type: other Qualified Code(s): J43.8 - Other emphysema (5) Cancer associated pain Current Visit: Yes Status: Chronic Assessment and plan: Continue current meds, palliative input appreciated (6) Diabetes Current Visit: Yes Status: Acute Assessment and plan: Overcontrolled, A1C 5.6. Continue basal and sliding scale insulin, monitor closely. 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 Pt was on eliquis, urostomy with mai blood, continue to hold until this begins to clear out (10) Congestive heart failure Current Visit: Yes Status: Chronic Assessment and plan: No signs of exacerbation. Continue home med. Qualifiers: Congestive heart failure type: unspecified congestive heart failure type Congestive heart failure chronicity: unspecified congestive heart failure chronicity Qualified Code(s): I50.9 - Heart failure, unspecified (11) Morbid obesity with BMI of 40.0-44.9, adult Current Visit: Yes Status: Chronic Assessment and plan: Need lifestyle modification. (12) MARTHA treated with BiPAP Current Visit: Yes Status: Chronic Assessment and plan: Continue night BiPAP (13) Prostate cancer metastatic to intrapelvic lymph node Current Visit: Yes Status: Chronic Assessment and plan: Oncology review appreciated. continue supportive treatment. For follow up with Oncology after discharge (14) Acute encephalopathy Current Visit: Yes Status: Resolved Assessment and plan: Resolved, was Multifactorial. Possibly due to dehydration and anemia. 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, with compression features, COPD, CHFpEF, Afib on Eliquis, s/p Aortic Valve Replacement, s/p CVA, R anophthalmos, DM, HTN, HLD, CKD III He is seen at bedside today s/p urostomy POD 3 He otherwise denies new complains, has been seen by Psych follow up now draining but still bloody Patient with slowly downtrending Hb He denies dizziness, SOB or CP - Constitutional Vitals: Temp Pulse Resp BP Pulse Ox 98 F 91 20 124/72 98 11/24/16 11:11 11/24/16 11:11 11/24/16 11:11 11/24/16 11:11 11/24/16 11:11 General appearance: Present: A&O X 3, morbidly obese, no acute distress, answers questions appropriately - Head Head exam: Present: atraumatic, normocephalic - Eye Eye exam: Present: conjuntiva pink, sclera anicteric Additional comments: R anophthalmos - Neck Neck exam general surgery: Present: supple, trachea midline. Absent: lymphadenopathy - Respiratory Respiratory exam: Present: CTAB. Absent: accessory muscle use, rales, rhonchi, wheezes - Cardiovascular Cardiovascular exam: Present: irregular rhythm, +S1, +S2. Absent: diastolic murmur, gallop, rubs, systolic murmur - GI/Abdominal GI/Abdominal exam: Present: normal bowel sounds, soft, no peritoneal signs. Absent: distended, tenderness - Extremities Exam Extremities exam: Present: warm, radial pulses palpable and symetrical. Absent : calf tenderness, cyanotic, pedal edema - Neurological Exam Neurological exam: Present: CN II-XII intact, oriented X3, no focal deficits. Absent: pronater drift, facial droop, speech deficit - Skin Skin exam: Present: dry, intact Internal Medicine: Result - Labs CBC & Chem 7: 11/24/16 03:01 11/23/16 04:05 Labs: Short CBC 11/24/16 Range/Units 03:01 WBC 10.2 (4.3-11.1) K/mcL Hgb 8.1 L (12.9-16.9) g/dL Hct 26.4 L (37.5-50.1) % Plt Count 173 (140-400) K/mcL Neutrophils # 7.5 (1.6-8.9) K/mcL - ABG Interpretation ABG results: PT/INR, D-dimer PT 13.7 Seconds (9.4-12.1) H 11/18/16 11:26 - VTE Documentation of Mechanical Device: Intermittent pneumatic compression device Consult Discharge Plan - Plan [facility]: [facility] Care Provider[facility] - 12/05/16 9:15 am
[2016-11-24 16:17] LABS: Alpha 2 Globulin (PEP) 0.43 g/dL (0.48-1.05); Beta Globulin (PEP) 0.88 g/dL (0.48-1.10)
--- NOTE | 2016-11-24 18:29 | Urology Progress Note ---
Date of Encounter: 11/24/16 Time of Encounter: 18:26 - Assessment and Plan (1) Hydronephrosis Current Visit: Yes Status: Acute Assessment and plan: Still with bleeding after neph tube. Will need some time to allow his anticoagulants to leave his system. I will check a KUB to confirm the neph tube is in a good position. Follow HCT. Transfuse if necessary. If he continues to have bleeding over the next few days, we will need to discuss further with IR for possible CT scan. With his renal function being impaire we will need to be cautious regarding possible angiography. Qualifiers: Hydronephrosis type: unspecified Qualified Code(s): N13.30 - Unspecified hydronephrosis (2) Prostate cancer metastatic to intrapelvic lymph node Current Visit: Yes Status: Chronic Assessment and plan: Appreciate medical oncology consultation. Progress Note Narrative: Still with left nephrostomy tube hematuria. His voided urine is clear. HCt has trended down to 26. Objective Initial Vital Signs Temp Pulse Resp BP Pulse Ox 98.2 F 95 18 107/69 98 11/17/16 17:50 11/17/16 17:50 11/17/16 17:50 11/17/16 17:50 11/17/16 17:50 - General physical appearance Present: well developed, well nourished, no distress - Respiratory Present: normal respiratory effort - Abdomen Present: soft - Labs 11/24/16 03:01 11/23/16 04:05 - VTE Documentation of Mechanical Device: Intermittent pneumatic compression device Consult Discharge Plan - Plan [facility]errals: [facility] [Primary Care Provider[facility] - 12/05/16 9:15 am
[2016-11-24] MEDS: Insulin DETEMIR 100 UNIT/ML X5UNITS SQ SCH (21:57)
[2016-11-24] MEDS: Sennosides/Docusate Sodium TABLET PO PRN (22:00)
[2016-11-24] MEDS: *HR* OxyCODONE Immed Rel 5 MG TABLET PO PRN (22:32)
[2016-11-25] MEDS: Ipratropium/Albuterol Neb 3 ML IH SCH ×3 (05:27→15:26)
[2016-11-25] MEDS: Gabapentin 100 MG CAPSULE PO SCH ×3 (06:22→21:51)
[2016-11-25 06:23] LABS: Basophils % 0.5 %; Eosinophils # 0.4 K/mcL (0.0-0.6); Eosinophils % 4.6 %; Hematocrit 25.9 % (37.5-50.1); Hemoglobin 7.8 g/dL (12.9-16.9); Immature Granulocytes % 0.4 % (0-4); Lymphocytes # 1.2 K/mcL (0.6-4.6); Lymphocytes % 14.1 %; Mean Corpuscular HGB Conc 30.1 g/dL (31.6-35.5); Mean Corpuscular Hemoglobin 26.1 pg (28.0-33.3); Mean Corpuscular Volume 86.6 fL (83.0-100.0); Mean Platelet Volume 10.9 fL (9.4-12.4); Monocytes # 0.8 K/mcL (0.0-1.3); Monocytes % 9.3 %; Platelet Count 175 K/mcL (140-400); Red Blood Count 2.99 M/mcL (4.19-5.50); Red Cell Distribution Width 17.6 % (11.5-14.5); Segmented Neutrophils % 71.1 %
[2016-11-25 06:33] LABS: Calcium 8.8 mg/dL (8.6-10.8); Potassium 4.9 mEq/L (3.5-4.5)
[2016-11-25 07:04] LABS: IFE Reflexed IFE Done
[2016-11-25 07:05] LABS: Immunoglobulin A 226 mg/dL (68-408); Immunoglobulin G 851 mg/dL (768-1632); Immunoglobulin M 40 mg/dL (35-263)
[2016-11-25] MEDS: Insulin LISPRO 300 UNITS/3 ML VIAL SQ SCH ×7 (08:51→21:45)
[2016-11-25] MEDS: Ascorbic Acid 500 MG TABLET PO SCH (08:55)
[2016-11-25] MEDS: Bicalutamide 50 MG TABLET PO SCH (08:56)
[2016-11-25] MEDS: Capsaicin 0.025% 60 GM TUBE TP SCH ×4 (08:59→21:57)
[2016-11-25] MEDS: Artificial Tears SOLN 15 ML BOTTLE BOTH EYES SCH ×4 (09:00→21:57)
[2016-11-25] MEDS: amLODIPine 5 MG TABLET PO SCH (09:00)
[2016-11-25] MEDS: Pyridoxine (B-6) 50 MG TABLET PO SCH (09:04)
--- NOTE | 2016-11-25 09:37 | Urology Progress Note ---
Date of Encounter: 11/25/16 Time of Encounter: 09:34 - Assessment and Plan (1) Gross hematuria Current Visit: Yes Status: Acute Assessment and plan: The urine in the tubing remains bloody but appears to be Becoming more transparent. It irrigated without difficulty and the KUB confirmed that is in good position. I feel that we should observe rather than proceed with attempts at embolization. We'll continue to follow. Progress Note Subjective: no new complaints Objective Initial Vital Signs Temp Pulse Resp BP Pulse Ox 98.2 F 95 18 107/69 98 11/17/16 17:50 11/17/16 17:50 11/17/16 17:50 11/17/16 17:50 11/17/16 17:50 - General physical appearance Present: well developed, no distress - Additional Exam grossly bloody nephrostomy drainage but becoming more transparent in the tubing. I irrigated small amount of clot using a 10 mL syringe with normal saline - Labs 11/25/16 06:06 11/25/16 06:06 Diabetes panel 11/25/16 Range/Units 06:06 Sodium 137 (136-145) mEq/L Potassium 4.9 H (3.5-4.5) mEq/L Chloride 104 (98-109) mEq/L Carbon Dioxide 26 (19-29) mEq/L BUN 33 H (8-26) mg/dL Creatinine 1.49 H (0.72-1.25) mg/dL Glucose 106 H (70-99) mg/dL Calcium 8.8 (8.6-10.8) mg/dL Calcium panel 11/25/16 Range/Units 06:06 Calcium 8.8 (8.6-10.8) mg/dL Pituitary panel 11/25/16 Range/Units 06:06 Sodium 137 (136-145) mEq/L Potassium 4.9 H (3.5-4.5) mEq/L Chloride 104 (98-109) mEq/L Carbon Dioxide 26 (19-29) mEq/L BUN 33 H (8-26) mg/dL Creatinine 1.49 H (0.72-1.25) mg/dL Glucose 106 H (70-99) mg/dL Calcium 8.8 (8.6-10.8) mg/dL Adrenal panel 11/25/16 Range/Units 06:06 Sodium 137 (136-145) mEq/L Potassium 4.9 H (3.5-4.5) mEq/L Chloride 104 (98-109) mEq/L Carbon Dioxide 26 (19-29) mEq/L BUN 33 H (8-26) mg/dL Creatinine 1.49 H (0.72-1.25) mg/dL Glucose 106 H (70-99) mg/dL Calcium 8.8 (8.6-10.8) mg/dL - VTE Documentation of Mechanical Device: Intermittent pneumatic compression device Consult Discharge Plan - Plan Referrals: [facility] [Primary Care Provider] - 12/05/16 9:15 am
--- NOTE | 2016-11-25 10:22 | Internal Med Progress Note ---
Date of Encounter: 11/25/16 Time of Encounter: 10:20 - Assessment and plan (1) Depression Current Visit: Yes Status: Chronic Assessment and plan: Patient is already on Zoloft Psych review appreciated Qualifiers: Depression Type: unspecified Qualified Code(s): F32.9 - Major depressive disorder, single episode, unspecified (2) Acute kidney injury superimposed on CKD Current Visit: Yes Status: Acute Assessment and plan: GEORGE on CKD III Post-renal from [facility]HE[facility] from compression from tumor mets POD 4, s/p nephrostomy tube 11/21, s/p 500cc bolus 11/24, with improvement in nephrostomy output, still bloody Urology still following Chem stable, HHB downtrending, >7 continue to monitor (3) Bladder outlet obstruction Current Visit: Yes Status: Acute Assessment and plan: Urology is following (4) COPD (chronic obstructive pulmonary disease) Current Visit: Yes Status: Chronic Assessment and plan: Stable, continue home med and nebulizer PRN. Qualifiers: COPD type: emphysema Emphysema type: other Qualified Code(s): J43.8 - Other emphysema (5) Cancer associated pain Current Visit: Yes Status: Chronic Assessment and plan: Continue current meds, palliative input appreciated (6) Diabetes Current Visit: Yes Status: Acute Assessment and plan: Overcontrolled, A1C 5.6. Continue basal and sliding scale insulin, monitor closely. Qualifiers: Diabetes mellitus type: type 2 Diabetes mellitus complication status: with kidney complications Diabetes mellitus complication detail: with chronic kidney disease Diabetes mellitus rn long term care insulin use: with shelter use Chronic kidney disease stage: stage 3 (moderate) Qualified Code(s): E11.22 - Type 2 diabetes mellitus with diabetic chronic kidney disease; N18.3 - Chronic kidney disease, stage 3 (moderate); Z79.4 - intermediate (current) use of insulin (7) Hyperkalemia Current Visit: Yes Status: Acute Assessment and plan: Improved Continue to hold lisinopril (8) Symptomatic anemia Current Visit: Yes Status: Acute Assessment and plan: s/p 3 uints RBCs, Hb stable now Hb slowly decreasing May be due to procedure Continue to monitor (9) Chronic a-fib Current Visit: Yes Status: Chronic Assessment and plan: Rate is well controlled. Pt was on eliquis, urostomy with mai blood, continue to hold until this begins to clear out (10) Congestive heart failure Current Visit: Yes Status: Chronic Assessment and plan: No signs of exacerbation. Continue home med. Qualifiers: Congestive heart failure type: unspecified congestive heart failure type Congestive heart failure chronicity: unspecified congestive heart failure chronicity Qualified Code(s): I50.9 - Heart failure, unspecified (11) Morbid obesity with BMI of 40.0-44.9, adult Current Visit: Yes Status: Chronic Assessment and plan: Need lifestyle modification. (12) MARTHA treated with BiPAP Current Visit: Yes Status: Chronic Assessment and plan: Continue night BiPAP (13) Prostate cancer metastatic to intrapelvic lymph node Current Visit: Yes Status: Chronic Assessment and plan: Oncology review appreciated. continue supportive treatment. For follow up with Oncology after discharge (14) Acute encephalopathy Current Visit: Yes Status: Resolved Assessment and plan: Resolved, was Multifactorial. Possibly due to dehydration and anemia. 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, with compression features, COPD, CHFpEF, Afib on Eliquis, s/p Aortic Valve Replacement, s/p CVA, R anophthalmos, DM, HTN, HLD, CKD III He is seen at bedside today s/p urostomy POD 4 Nephrostomy tube still having bloody output, but looks more dilute Hb is downtrending Vital signs are stable Patient denies dizziness, CP or SOB - Constitutional Vitals: Temp Pulse Resp BP Pulse Ox 98.7 F 99 18 107/75 94 L 11/25/16 08:19 11/25/16 08:19 11/25/16 09:43 11/25/16 08:19 11/25/16 09:43 General appearance: Present: A&O X 3, morbidly obese, no acute distress, answers questions appropriately - Head Head exam: Present: atraumatic, normocephalic - Eye Eye exam: Present: PERRL, conjuntiva pink, sclera anicteric Pupils: Present: PERRL - Neck Neck exam general surgery: Present: supple, trachea midline. Absent: lymphadenopathy - Respiratory Respiratory exam: Present: CTAB. Absent: accessory muscle use, rales, rhonchi, wheezes - Cardiovascular Cardiovascular exam: Present: irregular rhythm, +S1, +S2. Absent: diastolic murmur, gallop, rubs, systolic murmur - GI/Abdominal GI/Abdominal exam: Present: normal bowel sounds, soft, no peritoneal signs. Absent: distended, tenderness - Additional comments: Left nephrostomy tube, dressing clean , output bloody - Extremities Exam Extremities exam: Present: warm, radial pulses palpable and symetrical. Absent : calf tenderness, cyanotic, pedal edema - Neurological Exam Neurological exam: Present: CN II-XII intact, oriented X3, no focal deficits. Absent: pronater drift, facial droop, speech deficit - Skin Skin exam: Present: dry Internal Medicine: Result - Labs CBC & Chem 7: 11/25/16 06:06 11/25/16 06:06 Labs: Short CBC 11/25/16 Range/Units 06:06 WBC 8.5 (4.3-11.1) K/mcL Hgb 7.8 L (12.9-16.9) g/dL Hct 25.9 L (37.5-50.1) % Plt Count 175 (140-400) K/mcL Neutrophils # 6.0 (1.6-8.9) K/mcL BMP 11/25/16 06:06 Sodium 137 Potassium 4.9 H Chloride 104 Carbon Dioxide 26 BUN 33 H Creatinine 1.49 H Glucose 106 H Calcium 8.8 - ABG Interpretation ABG results: PT/INR, D-dimer PT 13.7 Seconds (9.4-12.1) H 11/18/16 11:26 - Impressions Impressions KUB X-Ray 11/24/16 18:29 IMPRESSION: 1. Tip of the percutaneous nephrostomy catheter overlies the left mid abdomen. 2. Nonspecific bowel gas pattern without evidence of obstruction. D/ / 11/24/2016 23:04:42 Clarence Olsen MD / maria esther Interpreting Provider: Clarence Olsen MD - VTE Documentation of Mechanical Device: Intermittent pneumatic compression device Consult Discharge Plan - Plan Referrals: AMADA,PCP [Primary Care Provider] - 12/05/16 9:15 am
[2016-11-25] MEDS: *HR* OxyCODONE Immed Rel 5 MG TABLET PO PRN (21:50)
[2016-11-25] MEDS: Insulin DETEMIR 100 UNIT/ML X5UNITS SQ SCH (21:52)
[2016-11-26] MEDS: Ipratropium/Albuterol Neb 3 ML IH SCH ×3 (00:01→09:38)
[2016-11-26 05:29] LABS: Basophils % 0.4 %; Eosinophils # 0.3 K/mcL (0.0-0.6); Eosinophils % 4.1 %; Hematocrit 25.8 % (37.5-50.1); Hemoglobin 7.8 g/dL (12.9-16.9); Immature Granulocytes % 0.4 % (0-4); Lymphocytes # 1.2 K/mcL (0.6-4.6); Lymphocytes % 14.4 %; Mean Corpuscular HGB Conc 30.2 g/dL (31.6-35.5); Mean Corpuscular Hemoglobin 26.3 pg (28.0-33.3); Mean Corpuscular Volume 86.9 fL (83.0-100.0); Mean Platelet Volume 10.4 fL (9.4-12.4); Monocytes # 0.6 K/mcL (0.0-1.3); Neutrophils # 5.9 K/mcL (1.6-8.9); Platelet Count 175 K/mcL (140-400); Red Blood Count 2.97 M/mcL (4.19-5.50); Red Cell Distribution Width 17.6 % (11.5-14.5); Segmented Neutrophils % 72.7 %
[2016-11-26 05:41] LABS: Calcium 9.1 mg/dL (8.6-10.8); Potassium 5.3 mEq/L (3.5-4.5)
[2016-11-26] MEDS: Gabapentin 100 MG CAPSULE PO SCH ×3 (06:33→23:11)
--- NOTE | 2016-11-26 08:23 | Urology Progress Note ---
Date of Encounter: 11/26/16 Time of Encounter: 08:20 - Assessment and Plan (1) Gross hematuria Current Visit: Yes Status: Acute Assessment and plan: hematuria may be clearing a little but nephrostomy remains grossly bloody. small increase in Cr. per conversation with Dr Ledezma on Sunday will proceed with Ct scan for further evaluation. Hgb stable. If ct scan OK may be able to discharge early this week despite hematuria. may need to arrange home health bc pt lives on his own. From urology standpoint pt does not need 2N. Progress Note Subjective: no new complaints Narrative: hematuria continues Objective Initial Vital Signs Temp Pulse Resp BP Pulse Ox 98.2 F 95 18 107/69 98 11/17/16 17:50 11/17/16 17:50 11/17/16 17:50 11/17/16 17:50 11/17/16 17:50 - General physical appearance Present: well developed, no distress - Additional Exam gross hematuria continues but appears more transparent compared to yesterday. - Labs 11/26/16 05:11 11/26/16 05:11 Diabetes panel 11/26/16 Range/Units 05:11 Sodium 138 (136-145) mEq/L Potassium 5.3 H (3.5-4.5) mEq/L Chloride 105 (98-109) mEq/L Carbon Dioxide 27 (19-29) mEq/L BUN 35 H (8-26) mg/dL Creatinine 1.70 H (0.72-1.25) mg/dL Glucose 146 H (70-99) mg/dL Calcium 9.1 (8.6-10.8) mg/dL Calcium panel 11/26/16 Range/Units 05:11 Calcium 9.1 (8.6-10.8) mg/dL Pituitary panel 11/26/16 Range/Units 05:11 Sodium 138 (136-145) mEq/L Potassium 5.3 H (3.5-4.5) mEq/L Chloride 105 (98-109) mEq/L Carbon Dioxide 27 (19-29) mEq/L BUN 35 H (8-26) mg/dL Creatinine 1.70 H (0.72-1.25) mg/dL Glucose 146 H (70-99) mg/dL Calcium 9.1 (8.6-10.8) mg/dL Adrenal panel 11/26/16 Range/Units 05:11 Sodium 138 (136-145) mEq/L Potassium 5.3 H (3.5-4.5) mEq/L Chloride 105 (98-109) mEq/L Carbon Dioxide 27 (19-29) mEq/L BUN 35 H (8-26) mg/dL Creatinine 1.70 H (0.72-1.25) mg/dL Glucose 146 H (70-99) mg/dL Calcium 9.1 (8.6-10.8) mg/dL - VTE Documentation of Mechanical Device: Intermittent pneumatic compression device Consult Discharge Plan - Plan Referrals: AMADA,PCP [Primary Care Provider] - 12/05/16 9:15 am
[2016-11-26] MEDS: Ascorbic Acid 500 MG TABLET PO SCH (08:25)
[2016-11-26] MEDS: Pyridoxine (B-6) 50 MG TABLET PO SCH (08:25)
[2016-11-26] MEDS: Bicalutamide 50 MG TABLET PO SCH (08:26)
[2016-11-26] MEDS: amLODIPine 5 MG TABLET PO SCH (08:26)
[2016-11-26] MEDS: Artificial Tears SOLN 15 ML BOTTLE BOTH EYES SCH ×3 (08:28→23:18)
[2016-11-26] MEDS: Insulin LISPRO 300 UNITS/3 ML VIAL SQ SCH ×7 (08:28→23:14)
[2016-11-26] MEDS: Capsaicin 0.025% 60 GM TUBE TP SCH ×4 (08:33→23:14)
--- NOTE | 2016-11-26 09:51 | Internal Med Progress Note ---
Date of Encounter: 11/26/16 Time of Encounter: 09:49 - Assessment and plan (1) Depression Current Visit: Yes Status: Chronic Assessment and plan: Patient is already on Zoloft Psych review appreciated No SI Qualifiers: Depression Type: unspecified Qualified Code(s): F32.9 - Major depressive disorder, single episode, unspecified (2) Acute kidney injury superimposed on CKD Current Visit: Yes Status: Acute Assessment and plan: GEORGE on CKD III Post-renal from [facility] from compression from tumor mets POD 4, s/p nephrostomy tube 11/21, s/p 500cc bolus 11/24, with improvement in nephrostomy output, still bloody HB downtrending, >7 but stable around 7.8 Chem today with Cr 1.70(1.4), GFR 40(47) Abdomen/Pelvic CT done today shows s/p Left percutaneous nephrostomy catheter placement with intermediate attenuation within the left ureter compatible with hemorrhage along with left perinephric edema. Other chronic findings of retroperitoneal nodes are stable Slight increase in patient's Cr today as well as hyperkalemia Patient is not on diuretics, anticoagulation or ACEI Will give kayexalate Will give 500cc bolus X2 slowly Rpt Chem a.m Urology on board (3) Bladder outlet obstruction Current Visit: Yes Status: Acute Assessment and plan: Urology is following Mgt as above (4) COPD (chronic obstructive pulmonary disease) Current Visit: Yes Status: Chronic Assessment and plan: Stable, continue home med and nebulizer PRN. Qualifiers: COPD type: emphysema Emphysema type: other Qualified Code(s): J43.8 - Other emphysema (5) Cancer associated pain Current Visit: Yes Status: Chronic Assessment and plan: Continue current meds, palliative input appreciated (6) Diabetes Current Visit: Yes Status: Acute Assessment and plan: Overcontrolled, A1C 5.6. Continue basal and sliding scale insulin, monitor closely. Qualifiers: Diabetes mellitus type: type 2 Diabetes mellitus complication status: with kidney complications Diabetes mellitus complication detail: with chronic kidney disease Diabetes mellitus intermediate insulin use: with intermediate use Chronic kidney disease stage: stage 3 (moderate) Qualified Code(s): E11.22 - Type 2 diabetes mellitus with diabetic chronic kidney disease; N18.3 - Chronic kidney disease, stage 3 (moderate); Z79.4 - jail (current) use of insulin (7) Hyperkalemia Current Visit: Yes Status: Acute Assessment and plan: K 5.3(1.49) Kayexalate po RPt a.m (8) Symptomatic anemia Current Visit: Yes Status: Acute Assessment and plan: s/p 3 uints RBCs, Hb stable now Hb slowly decreasing May be due to procedure Continue to monitor (9) Chronic a-fib Current Visit: Yes Status: Chronic Assessment and plan: Rate is well controlled. Pt was on eliquis, urostomy with mai blood, continue to hold until this begins to clear out (10) Congestive heart failure Current Visit: Yes Status: Chronic Assessment and plan: No signs of exacerbation. Continue home med. Qualifiers: Congestive heart failure type: unspecified congestive heart failure type Congestive heart failure chronicity: unspecified congestive heart failure chronicity Qualified Code(s): I50.9 - Heart failure, unspecified (11) Morbid obesity with BMI of 40.0-44.9, adult Current Visit: Yes Status: Chronic Assessment and plan: Need lifestyle modification. (12) MARTHA treated with BiPAP Current Visit: Yes Status: Chronic Assessment and plan: Continue night BiPAP (13) Prostate cancer metastatic to intrapelvic lymph node Current Visit: Yes Status: Chronic Assessment and plan: Oncology review appreciated. continue supportive treatment. For follow up with Oncology after discharge (14) Acute encephalopathy Current Visit: Yes Status: Resolved Assessment and plan: Resolved, was Multifactorial. Possibly due to dehydration and anemia. 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, with compression features, COPD, CHFpEF, Afib on Eliquis, s/p Aortic Valve Replacement, s/p CVA, R anophthalmos, DM, HTN, HLD, CKD III He is seen at bedside today s/p urostomy POD 5 Nephrostomy tube still having bloody output, but looks more dilute Hb is has stabilized ~7.8 Patient has no new complains Vital signs are stable Patient denies dizziness, CP or SOB Abdomen/Pelvic CT done today shows s/p Left percutaneous nephrostomy catheter placement with intermediate attenuation within the left ureter compatible with hemorrhage along with left perinephric edema. Other chronic findings of retroperitoneal nodes are stable Urology is following Slight increase in patient's Cr today as well as hyperkalemia - Constitutional Vitals: Temp Pulse Resp BP Pulse Ox 98.3 F 86 16 111/75 97 11/26/16 07:39 11/26/16 07:39 11/26/16 07:39 11/26/16 07:39 11/26/16 07:39 General appearance: Present: A&O X 3, morbidly obese, pleasant, no acute distress, answers questions appropriately - Head Head exam: Present: atraumatic, normocephalic - Eye Eye exam: Present: PERRL, conjuntiva pink, sclera anicteric Pupils: Present: PERRL Additional comments: Right anophthalmos - Neck Neck exam general surgery: Present: supple, trachea midline. Absent: lymphadenopathy - Respiratory Respiratory exam: Present: CTAB. Absent: accessory muscle use, rales, rhonchi, wheezes - Cardiovascular Cardiovascular exam: Present: RRR, +S1, +S2. Absent: diastolic murmur, gallop, rubs, systolic murmur - Additional comments: Left nephrostomy bag with bloody output, dressing clean and dry - Extremities Exam Extremities exam: Present: warm, radial pulses palpable and symetrical. Absent : calf tenderness, cyanotic, pedal edema - Back Exam Additional comments: Right upper back lipoma - Neurological Exam Neurological exam: Present: CN II-XII intact, oriented X3, no focal deficits. Absent: pronater drift, facial droop, speech deficit - Skin Skin exam: Present: dry, intact Internal Medicine: Result - Labs CBC & Chem 7: 11/26/16 05:11 11/26/16 05:11 Labs: Short CBC 11/26/16 Range/Units 05:11 WBC 8.1 (4.3-11.1) K/mcL Hgb 7.8 L (12.9-16.9) g/dL Hct 25.8 L (37.5-50.1) % Plt Count 175 (140-400) K/mcL Neutrophils # 5.9 (1.6-8.9) K/mcL BMP 11/26/16 05:11 Sodium 138 Potassium 5.3 H Chloride 105 Carbon Dioxide 27 BUN 35 H Creatinine 1.70 H Glucose 146 H Calcium 9.1 - ABG Interpretation ABG results: PT/INR, D-dimer PT 13.7 Seconds (9.4-12.1) H 11/18/16 11:26 - Impressions Impressions Abdomen/Pelvis CT 11/26/16 08:24 IMPRESSION: 1. Status post left percutaneous nephrostomy catheter placement. There is intermediate attenuation within the left ureter compatible with hemorrhage. 2. Redemonstration of retroperitoneal and pelvic lymphadenopathy mildly increased in size from prior study. 3. Small bilateral pleural effusions and bibasal atelectasis. 4. Cardiomegaly and coronary artery disease. D/ / Obdulia Mojica MD / Obdulia Mojica MD Interpreting Provider: Obdulia Mojica MD - VTE Documentation of Mechanical Device: Intermittent pneumatic compression device Consult Discharge Plan - Plan [facility]errals: [facility] [Primary Care Provider[facility] - 12/05/16 9:15 am
[2016-11-26] MEDS ORDERED: Ipratropium/Albuterol Neb 3 ML IH PRN (10:34)
[2016-11-26] MEDS ORDERED: 0.9 % Sodium Chloride 500 ML IVC ONE (15:19)
[2016-11-26] MEDS: *HR* OxyCODONE Immed Rel 5 MG TABLET PO PRN (20:44)
[2016-11-26] MEDS: Sennosides/Docusate Sodium TABLET PO PRN (20:44)
[2016-11-26] MEDS: Insulin DETEMIR 100 UNIT/ML X5UNITS SQ SCH (23:11)
[2016-11-27] MEDS: Gabapentin 100 MG CAPSULE PO SCH ×2 (06:00→15:21)
[2016-11-27 06:33] LABS: Basophils % 0.5 %; Eosinophils # 0.4 K/mcL (0.0-0.6); Eosinophils % 4.3 %; Hematocrit 25.8 % (37.5-50.1); Hemoglobin 7.5 g/dL (12.9-16.9); Immature Granulocytes % 0.4 % (0-4); Lymphocytes # 0.9 K/mcL (0.6-4.6); Lymphocytes % 10.6 %; Mean Corpuscular HGB Conc 29.1 g/dL (31.6-35.5); Mean Corpuscular Hemoglobin 25.2 pg (28.0-33.3); Mean Corpuscular Volume 86.6 fL (83.0-100.0); Mean Platelet Volume 11.1 fL (9.4-12.4); Monocytes # 0.7 K/mcL (0.0-1.3); Monocytes % 8.2 %; Neutrophils # 6.2 K/mcL (1.6-8.9); Platelet Count 195 K/mcL (140-400); Red Blood Count 2.98 M/mcL (4.19-5.50); Red Cell Distribution Width 17.6 % (11.5-14.5)
[2016-11-27 06:37] LABS: INR 1.2; Prothrombin Time 12.9 Seconds (9.4-12.1)
[2016-11-27 06:45] LABS: Calcium 9.4 mg/dL (8.6-10.8); Potassium 5.3 mEq/L (3.5-4.5)
[2016-11-27] MEDS: Bicalutamide 50 MG TABLET PO SCH (08:23)
[2016-11-27] MEDS: amLODIPine 5 MG TABLET PO SCH (08:23)
[2016-11-27] MEDS: Ascorbic Acid 500 MG TABLET PO SCH (08:23)
[2016-11-27] MEDS: Pyridoxine (B-6) 50 MG TABLET PO SCH (08:25)
[2016-11-27] MEDS: Artificial Tears SOLN 15 ML BOTTLE BOTH EYES SCH ×4 (08:25→22:09)
[2016-11-27] MEDS: Capsaicin 0.025% 60 GM TUBE TP SCH ×4 (08:26→22:11)
[2016-11-27] MEDS: Insulin LISPRO 300 UNITS/3 ML VIAL SQ SCH ×7 (08:26→22:11)
--- NOTE | 2016-11-27 12:17 | Urology Progress Note ---
Date of Encounter: 11/27/16 Time of Encounter: 12:15 - Assessment and Plan (1) Hydronephrosis Current Visit: Yes Status: Acute Assessment and plan: Continue left neph tube. Okay to d/c home with home health assistance for daily neph tube flushing. He can follow up with me later this week for an assessment of the urine color and repeat labs. Will look to arrange antegrade stent by radiology in 1-2 weeks. Qualifiers: Hydronephrosis type: unspecified Qualified Code(s): N13.30 - Unspecified hydronephrosis (2) Prostate cancer metastatic to intrapelvic lymph node Current Visit: Yes Status: Chronic Progress Note Narrative: Doing well today. HCt is stable. Urine still with some bright red bloody urine. No flank pain. Objective Initial Vital Signs Temp Pulse Resp BP Pulse Ox 98.2 F 95 18 107/69 98 11/17/16 17:50 11/17/16 17:50 11/17/16 17:50 11/17/16 17:50 11/17/16 17:50 - General physical appearance Present: well developed, well nourished, no distress - Respiratory Present: normal expansion - Abdomen Present: soft - Genitourinary Urine Appearance: Present: Hematuria (left neph tube is draining well. Urine is still bloody.) - Labs 11/27/16 06:09 11/27/16 06:09 Diabetes panel 11/27/16 Range/Units 06:09 Sodium 138 (136-145) mEq/L Potassium 5.3 H (3.5-4.5) mEq/L Chloride 106 (98-109) mEq/L Carbon Dioxide 25 (19-29) mEq/L BUN 30 H (8-26) mg/dL Creatinine 1.46 H (0.72-1.25) mg/dL Glucose 115 H (70-99) mg/dL Calcium 9.4 (8.6-10.8) mg/dL Calcium panel 11/27/16 Range/Units 06:09 Calcium 9.4 (8.6-10.8) mg/dL Pituitary panel 11/27/16 Range/Units 06:09 Sodium 138 (136-145) mEq/L Potassium 5.3 H (3.5-4.5) mEq/L Chloride 106 (98-109) mEq/L Carbon Dioxide 25 (19-29) mEq/L BUN 30 H (8-26) mg/dL Creatinine 1.46 H (0.72-1.25) mg/dL Glucose 115 H (70-99) mg/dL Calcium 9.4 (8.6-10.8) mg/dL Adrenal panel 11/27/16 Range/Units 06:09 Sodium 138 (136-145) mEq/L Potassium 5.3 H (3.5-4.5) mEq/L Chloride 106 (98-109) mEq/L Carbon Dioxide 25 (19-29) mEq/L BUN 30 H (8-26) mg/dL Creatinine 1.46 H (0.72-1.25) mg/dL Glucose 115 H (70-99) mg/dL Calcium 9.4 (8.6-10.8) mg/dL - VTE Documentation of Mechanical Device: Intermittent pneumatic compression device Consult Discharge Plan - Plan Referrals: AMADAPCP [Primary Care Provider] - 12/05/16 9:15 am
--- NOTE | 2016-11-27 12:50 | Physician Discharge Referral ---
Home Health/Hosp Referral Info Transfer to: Home Health Attending Provider: Jose Hines Provider in Charge Post Discharge: PCP - Diagnosis (1) Depression Priority: Secondary Status: Chronic (2) Acute kidney injury superimposed on CKD Priority: Primary Status: Resolved (3) Bladder outlet obstruction Priority: Primary Status: Acute (4) COPD (chronic obstructive pulmonary disease) Priority: Secondary Status: Chronic (5) Cancer associated pain Priority: Secondary Status: Chronic (6) Diabetes Priority: Secondary Status: Acute (7) Hyperkalemia Priority: Secondary Status: Acute (8) Symptomatic anemia Priority: Primary Status: Acute (9) Chronic a-fib Priority: Secondary Status: Chronic (10) Congestive heart failure Priority: Secondary Status: Chronic (11) Morbid obesity with BMI of 40.0-44.9, adult Priority: Secondary Status: Chronic (12) MARTHA treated with BiPAP Priority: Secondary Status: Chronic (13) Prostate cancer metastatic to intrapelvic lymph node Priority: Secondary Status: Chronic (14) Acute encephalopathy Priority: Primary Status: Resolved (15) 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 (16) Leukocytosis (leucocytosis) Priority: Secondary Status: Resolved - Respiratory Orders Smoking Cessation: Smoking cessation has been advised. For more information, call the [place] Tobacco Quit Line at 6-198-KKWGNOW. - Services Needed Following services are medically necessary services: Nursing (Irrigate left nephrostomy tube daily with 10ml of injectable saline) - Transfer Medications Prescriptions: Amlodipine [Norvasc] 5 mg PO DAILY #30 tablet Home Medications: Acetaminophen [Tylenol] 325 mg PO BID PRN 10/17/15 [History] Allopurinol [Zyloprim 300 MG] 300 mg PO DAILY 10/17/15 [History] Ascorbic Acid [Vitamin C] 1,000 mg PO DAILY 10/17/15 [History] Atorvastatin Calcium [Lipitor] 40 mg PO QPM 10/17/15 [History] Carboxymethylcellulos/Glycerin [Refresh Optive Eye Drops] 1 drop BOTH EYES QID 10/17/15 [History] Docusate Sodium [Colace] 100 mg PO BID 10/17/15 [History] Insulin Glargine [Lantus] 56 unit SQ DAILY 10/17/15 [History] Ipratropium/Albuterol Neb [Duoneb] 3 ml IH QID PRN 10/17/15 [History] Modafinil [Provigil] 400 mg PO QAM 10/17/15 [History] Multivitamin [Multivitamins] 1 tab PO QAM 10/17/15 [History] Omeprazole [PriLOSEC] 40 mg PO DAILY 10/17/15 [History] Petrolatum,Hydrophilic [Aloe [place]] 1 appl TP AD PRN 10/17/15 [History] Saliva Stimulant [Biotene Moisturizing Rinse] 3 - 5 spray PO BID 10/17/15 [ History] Sertraline [Zoloft] 100 mg PO QAM 10/17/15 [History] Benzocaine/Menthol [Sore Throat Lozenge] 1 each MM QID PRN 05/24/16 [History] Bicalutamide [Casodex] 50 mg PO DAILY 05/24/16 [History] Capsaicin 0.025% [Trixaicin] 1 appl TP QID 05/24/16 [History] Pyridoxine HCl [Vitamin B-6] 100 mg PO DAILY 05/24/16 [History] Water for Irrigation (sterile) [Water for irrigation (sterile)] 0 ml .ROUTE BID 05/24/16 [History] Calcium Carbonate [Calcium] 1,000 mg PO BID 11/17/16 [History] Ferrous Sulfate 325 mg PO DAILY 11/17/16 [History] Gabapentin [Neurontin] 300 mg PO Q8H 11/17/16 [History] Urea 1 appl TP BID 11/17/16 [History] Vardenafil HCl [Levitra] 5 mg PO AD PRN 11/17/16 [History] Amlodipine [Norvasc] 5 mg PO DAILY #30 tablet 11/27/16 [Rx] Allergies/Adverse Reactions: Allergies IVP dye Allergy (Uncoded 10/17/15 06:47) Vomiting Certification: Further, I certify that my clinical findings support that this patient is homebound (i.e. absences from home require considerable and taxing effort and are for medical reasons or rastafari services or infrequently or short duration when for other reasons) because: Homebound Reason: Leaving home requires considerable and taxing effort due to condition, Severity of cardiac or pulmonary status limits activity tolerance Attestation: My signature below is to certify that this patient is under my care and that I, or nurse practitioner, or a physician's personal banking assistant working with me, has a face-to -face encounter with this patient.
[2016-11-27] MEDS: *HR* OxyCODONE Immed Rel 5 MG TABLET PO PRN ×2 (15:20→22:03)
--- NOTE | 2016-11-27 16:21 | Internal Med Progress Note ---
Date of Encounter: 11/27/16 Time of Encounter: 11:02 - Assessment and plan (1) Depression Current Visit: Yes Status: Chronic Assessment and plan: Patient is already on Zoloft Psych review appreciated No SI Qualifiers: Depression Type: unspecified Qualified Code(s): F32.9 - Major depressive disorder, single episode, unspecified (2) Acute kidney injury superimposed on CKD Current Visit: Yes Status: Resolved Assessment and plan: GEORGE on CKD III Post-renal from SANCHEZ from compression from tumor mets POD 6, s/p nephrostomy tube 11/21, s/p 500cc bolus 11/24, with improvement in nephrostomy output, still bloody HB downtrending, >7 but stable around 7.8 Chem today stable GFR/creatinine Abdomen/Pelvic CT done today shows s/p Left percutaneous nephrostomy catheter placement with intermediate attenuation within the left ureter compatible with hemorrhage along with left perinephric edema. Other chronic findings of retroperitoneal nodes are stable Continue to follow (3) Bladder outlet obstruction Current Visit: Yes Status: Acute Assessment and plan: Urology is following Mgt as above (4) COPD (chronic obstructive pulmonary disease) Current Visit: Yes Status: Chronic Qualifiers: COPD type: emphysema Emphysema type: other Qualified Code(s): J43.8 - Other emphysema (5) Cancer associated pain Current Visit: Yes Status: Chronic (6) Diabetes Current Visit: Yes Status: Acute Qualifiers: Diabetes mellitus type: type 2 Diabetes mellitus complication status: with kidney complications Diabetes mellitus complication detail: with chronic kidney disease Diabetes mellitus rat exterminator insulin use: with prison use Chronic kidney disease stage: stage 3 (moderate) Qualified Code(s): E11.22 - Type 2 diabetes mellitus with diabetic chronic kidney disease; N18.3 - Chronic kidney disease, stage 3 (moderate); Z79.4 - FPC (current) use of insulin (7) Hyperkalemia Current Visit: Yes Status: Acute Assessment and plan: K 5.3(1.49) Kayexalate po RPt a.m (8) Symptomatic anemia Current Visit: Yes Status: Acute Assessment and plan: s/p 3 uints RBCs, Hb stable now Hb slowly decreasing May be due to procedure Continue to monitor (9) Chronic a-fib Current Visit: Yes Status: Chronic Assessment and plan: Rate is well controlled. Pt was on eliquis, urostomy with mai blood, continue to hold until this begins to clear out (10) Congestive heart failure Current Visit: Yes Status: Chronic Assessment and plan: No signs of exacerbation. Continue home med. Qualifiers: Congestive heart failure type: unspecified congestive heart failure type Congestive heart failure chronicity: unspecified congestive heart failure chronicity Qualified Code(s): I50.9 - Heart failure, unspecified (11) Morbid obesity with BMI of 40.0-44.9, adult Current Visit: Yes Status: Chronic Assessment and plan: Need lifestyle modification. (12) MARTHA treated with BiPAP Current Visit: Yes Status: Chronic Assessment and plan: Continue night BiPAP (13) Prostate cancer metastatic to intrapelvic lymph node Current Visit: Yes Status: Chronic Assessment and plan: Oncology review appreciated. continue supportive treatment. For follow up with Oncology after discharge (14) Acute encephalopathy Current Visit: Yes Status: Resolved Assessment and plan: Resolved, was Multifactorial. Possibly due to dehydration and anemia. 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 Other chronic findings of retroperitoneal nodes are stable I spoke with Dr. Ledezma early this morning and they do not plan any intervention in-patient Patient is stable for discharge However, he will need home care for nephrostomy tube flushing I have discussed this with the SW and [facility] - Constitutional Vitals: Temp Pulse Resp BP Pulse Ox 98.9 F 93 20 126/88 98 11/27/16 15:43 11/27/16 15:43 11/27/16 15:43 11/27/16 15:43 11/27/16 15:43 General appearance: Present: A&O X 3, morbidly obese, pleasant, no acute distress, answers questions appropriately - Head Head exam: Present: atraumatic, normocephalic - Eye Eye exam: Present: PERRL, conjuntiva pink, sclera anicteric Pupils: Present: PERRL Additional comments: R anophthalmos - Neck Neck exam general surgery: Present: supple, trachea midline. Absent: lymphadenopathy - Respiratory Respiratory exam: Present: CTAB. Absent: accessory muscle use, rales, rhonchi, wheezes - Cardiovascular Cardiovascular exam: Present: irregular rhythm, +S1, +S2. Absent: diastolic murmur, gallop, rubs, systolic murmur - GI/Abdominal GI/Abdominal exam: Present: normal bowel sounds, soft, no peritoneal signs. Absent: distended, tenderness - Additional comments: Nephrostomy tube draining bloody urine - Extremities Exam Extremities exam: Present: warm, radial pulses palpable and symetrical. Absent : calf tenderness, cyanotic, pedal edema - Back Exam Additional comments: Lipoma Wound dressing clean and dry - Neurological Exam Neurological exam: Present: CN II-XII intact, oriented X3, no focal deficits. Absent: pronater drift, facial droop, speech deficit - Skin Skin exam: Present: dry Internal Medicine: Result - Labs CBC & Chem 7: 11/27/16 06:09 11/27/16 06:09 Labs: Short CBC 11/27/16 Range/Units 06:09 WBC 8.2 (4.3-11.1) K/mcL Hgb 7.5 L (12.9-16.9) g/dL Hct 25.8 L (37.5-50.1) % Plt Count 195 (140-400) K/mcL Neutrophils # 6.2 (1.6-8.9) K/mcL BMP 11/27/16 06:09 Sodium 138 Potassium 5.3 H Chloride 106 Carbon Dioxide 25 BUN 30 H Creatinine 1.46 H Glucose 115 H Calcium 9.4 - ABG Interpretation ABG results: PT/INR, D-dimer PT 12.9 Seconds (9.4-12.1) H 11/27/16 06:09 - VTE Documentation of Mechanical Device: Intermittent pneumatic compression device Consult Discharge Plan - Plan [facility]errals[facility] - 12/05/16 9:15 am Prescriptions: Amlodipine [Norvasc] 5 mg PO DAILY #30 tablet
[2016-11-27] MEDS: Insulin DETEMIR 100 UNIT/ML X5UNITS SQ SCH (22:09)
[2016-11-28] MEDS: Gabapentin 100 MG CAPSULE PO SCH ×4 (02:15→23:00)
[2016-11-28] MEDS: *HR* OxyCODONE Immed Rel 5 MG TABLET PO PRN ×3 (04:15→20:57)
[2016-11-28] MEDS: Bicalutamide 50 MG TABLET PO SCH (09:00)
[2016-11-28] MEDS: Ascorbic Acid 500 MG TABLET PO SCH (09:00)
[2016-11-28] MEDS: amLODIPine 5 MG TABLET PO SCH (09:01)
[2016-11-28] MEDS: Pyridoxine (B-6) 50 MG TABLET PO SCH (09:01)
[2016-11-28] MEDS: Artificial Tears SOLN 15 ML BOTTLE BOTH EYES SCH ×4 (09:06→20:36)
[2016-11-28] MEDS: Insulin LISPRO 300 UNITS/3 ML VIAL SQ SCH ×7 (09:06→20:39)
[2016-11-28] MEDS: Capsaicin 0.025% 60 GM TUBE TP SCH ×2 (09:08→12:33)
--- NOTE | 2016-11-28 10:02 | Internal Med Progress Note ---
<Virginia Tinoco - Last Filed: 11/28/16 11:23> Date of Encounter: 11/28/16 Time of Encounter: 09:00 - Assessment and plan (1) Acute kidney injury superimposed on CKD Current Visit: Yes Status: Resolved Assessment and plan: GEORGE on CKD III Etiology is Post-renal obstruction due to compression from tumor mets. POD 7, s/p nephrostomy tube 2/, nephrostomy tube output is still bloody. HB downtrending, >7 stable, 7.5 yesterday. Abdomen/Pelvic CT done yesterday shows s/p Left percutaneous nephrostomy catheter placement with intermediate attenuation within the left ureter compatible with hemorrhage along with left perinephric edema. Other chronic findings of retroperitoneal nodes are stable Continue to follow (2) Bladder outlet obstruction Current Visit: Yes Status: Acute Assessment and plan: Urology is following. s/p Nephrostomy tube placement. Per urology, he is ok to D/C home with home health assistance for daily nephrostomy tube flushing, and follow up with Dr. Cedillo outpatient. Urology will arrange antegrade stent by radiology in 1-2 weeks. (3) COPD (chronic obstructive pulmonary disease) Current Visit: Yes Status: Chronic Assessment and plan: Stable, continue home med and nebulizer PRN. Qualifiers: COPD type: emphysema Emphysema type: other Qualified Code(s): J43.8 - Other emphysema (4) Depression Current Visit: Yes Status: Chronic Assessment and plan: Patient is already on Zoloft Psych has evaluated. No suicidal ideation. no acute psychiatric issues to address at this time. Qualifiers: Depression Type: unspecified Qualified Code(s): F32.9 - Major depressive disorder, single episode, unspecified (5) Cancer associated pain Current Visit: Yes Status: Chronic Assessment and plan: Continue current pain management with morphine and oxycodone PRN palliative input appreciated (6) Diabetes Current Visit: Yes Status: Acute Assessment and plan: A1C 5.6, sugars well controlled at this time. Continue basal and sliding scale insulin, monitor closely. Qualifiers: Diabetes mellitus type: type 2 Diabetes mellitus complication status: with kidney complications Diabetes mellitus complication detail: with chronic kidney disease Diabetes mellitus longterm insulin use: with longterm use Chronic kidney disease stage: stage 3 (moderate) Qualified Code(s): E11.22 - Type 2 diabetes mellitus with diabetic chronic kidney disease; N18.3 - Chronic kidney disease, stage 3 (moderate); Z79.4 - director long term care (current) use of insulin (7) Hyperkalemia Current Visit: Yes Status: Acute Assessment and plan: K today was 5, stable. Kayexalate po as needed. continue to monitor. (8) Symptomatic anemia Current Visit: Yes Status: Acute Assessment and plan: s/p 3 uints RBCs, Hb stable now Continue to monitor (9) Chronic a-fib Current Visit: Yes Status: Chronic Assessment and plan: Rate controlled. Pt was on eliquis, urostomy with mai blood, continue to hold until this begins to clear out (10) Congestive heart failure Current Visit: Yes Status: Chronic Assessment and plan: last echo from 10/18/15 showed LVEF 55%, moderate concentric LVH, atypical septal motion, indeterminate diastolic function. no aortic regurg, no significant aortic stenosis. No signs of exacerbation. 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 patient denies nausae, vomiting, diarrhea , fever, chills, denies shortness of breath. He is on 2L oxygen at home. He denies any pain, dizziness. He was sitting up in bed and had just finished eating his breakfast. - Constitutional Vitals: Temp Pulse Resp BP Pulse Ox 98.5 F 96 18 127/88 98 11/28/16 06:58 11/28/16 06:58 11/28/16 06:58 11/28/16 06:58 11/28/16 09:14 General appearance: Present: A&O X 3, morbidly obese, pleasant, no acute distress, answers questions appropriately - Head Head exam: Present: atraumatic, normocephalic - Eye Additional comments: right eye is sewn shut. he states it had to be removed because it caused him pain after he had a stroke. - Neck Neck exam general surgery: Present: supple, trachea midline - Respiratory Additional comments: rhonchi and mild wheezing present. - Cardiovascular Additional comments: scars on chest present from previous aortic valve replacement in 2011. systolic click noted. - GI/Abdominal Additional comments: obese, non tender, positive bowel sounds. Firm. - Additional comments: left nephrostomy tube in place, draining blood. - Back Exam Additional comments: right thoracic lipoma present. Internal Medicine: Result - Labs CBC & Chem 7: 11/27/16 06:09 11/28/16 06:32 Labs: BMP 11/28/16 06:32 Potassium 5.0 H - ABG Interpretation ABG results: PT/INR, D-dimer PT 12.9 Seconds (9.4-12.1) H 11/27/16 06:09 - VTE Documentation of Mechanical Device: Intermittent pneumatic compression device Consult Discharge Plan - Plan [facility]errals: [facility] [Primary Care Provider[facility] - 12/05/16 9:15 am Prescriptions: Amlodipine [Norvasc] 5 mg PO DAILY #30 tablet <Elkin Chavez H - Last Filed: 11/28/16 14:48> - Constitutional Vitals: Temp Pulse Resp BP Pulse Ox 97.9 F 100 18 124/79 97 11/28/16 11:13 11/28/16 11:13 11/28/16 11:13 11/28/16 11:13 11/28/16 11:13 Internal Medicine: Result - Labs CBC & Chem 7: 11/27/16 06:09 11/28/16 06:32 Labs: BMP 11/28/16 06:32 Potassium 5.0 H - ABG Interpretation ABG results: PT/INR, D-dimer PT 12.9 Seconds (9.4-12.1) H 11/27/16 06:09 - Attending Attestation acute blood loss anemia 2ry to renal /nephrostomy hemmorrhage can not stop Zoloft due to severe depression order cbc (sympomatic , dizziness) may transfuse 1 unit of RBCs if worse Hb<8 and symptomatic nephrosotmy tube flushing not set up at home yet I examined this patient and my medical decision-making was reviewed with the VAULT CASHIER/PA/Advanced Practice Nurse/Resident Physician. I agree with the documented findings, disposition and treatment plan as described except to the extent set forth below.
--- NOTE | 2016-11-28 12:37 | Urology Progress Note ---
Date of Encounter: 11/28/16 Time of Encounter: 12:36 - Assessment and Plan (1) Hydronephrosis Current Visit: Yes Status: Acute Assessment and plan: Okay to d/c to home or SNF depending upon patient needs. Will have him follow up with me within a week after discharge. Plan for antegrade left ureteral stent placement as an outpatient. Qualifiers: Hydronephrosis type: unspecified Qualified Code(s): N13.30 - Unspecified hydronephrosis (2) Prostate cancer metastatic to intrapelvic lymph node Current Visit: Yes Status: Chronic Assessment and plan: He will follow up with medical oncology. Progress Note Narrative: Stable. Still with hematuria from left nephrostomy tube. He is interested in when he will be discharged. Objective Initial Vital Signs Temp Pulse Resp BP Pulse Ox 98.2 F 95 18 107/69 98 11/17/16 17:50 11/17/16 17:50 11/17/16 17:50 11/17/16 17:50 11/17/16 17:50 - General physical appearance Present: well developed, well nourished, no distress - Respiratory Present: normal respiratory effort - Abdomen Present: soft - Genitourinary Urine Appearance: Present: Hematuria (Neph tube with continued bloody urine, slightly more clear today.) - Labs 11/27/16 06:09 11/28/16 06:32 Diabetes panel 11/28/16 Range/Units 06:32 Potassium 5.0 H (3.5-4.5) mEq/L Pituitary panel 11/28/16 Range/Units 06:32 Potassium 5.0 H (3.5-4.5) mEq/L Adrenal panel 11/28/16 Range/Units 06:32 Potassium 5.0 H (3.5-4.5) mEq/L - VTE Documentation of Mechanical Device: Intermittent pneumatic compression device Consult Discharge Plan - Plan [facility]errals: [facility] [Primary Care Provider[facility] - 12/05/16 9:15 am Prescriptions: Amlodipine [Norvasc] 5 mg PO DAILY #30 tablet
[2016-11-28] MEDS ORDERED: Capsaicin 0.025% 60 GM TUBE TP PRN (14:39)
[2016-11-28 15:22] LABS: Basophils % 0.3 %; Eosinophils # 0.2 K/mcL (0.0-0.6); Eosinophils % 1.7 %; Hematocrit 25.5 % (37.5-50.1); Hemoglobin 7.7 g/dL (12.9-16.9); Immature Granulocytes % 0.6 % (0-4); Immature Platelets 3.8 % (1.1-6.1); Lymphocytes # 0.7 K/mcL (0.6-4.6); Lymphocytes % 5.7 %; Mean Corpuscular HGB Conc 30.2 g/dL (31.6-35.5); Mean Corpuscular Hemoglobin 26.3 pg (28.0-33.3); Mean Platelet Volume 10.3 fL (9.4-12.4); Monocytes % 8.1 %; Neutrophils # 10.6 K/mcL (1.6-8.9); Platelet Count 207 K/mcL (140-400); Red Blood Count 2.93 M/mcL (4.19-5.50); Red Cell Distribution Width 17.1 % (11.5-14.5); Segmented Neutrophils % 83.6 %
[2016-11-28 15:42] LABS: Calcium 9.2 mg/dL (8.6-10.8)
[2016-11-28] MEDS ORDERED: 0.9 % Sodium Chloride 250 ML ONE (17:31)
[2016-11-28] MEDS: Insulin DETEMIR 100 UNIT/ML X5UNITS SQ SCH (20:36)
[2016-11-28] MEDS: Acetaminophen 325 MG TABLET PO PRN (20:57)
[2016-11-29] MEDS: Gabapentin 100 MG CAPSULE PO SCH ×3 (05:58→22:41)
[2016-11-29 07:13] LABS: Basophils # 0.1 K/mcL (0.0-0.2); Basophils % 0.3 %; Eosinophils # 0.1 K/mcL (0.0-0.6); Eosinophils % 0.8 %; Hematocrit 24.6 % (37.5-50.1); Hemoglobin 7.5 g/dL (12.9-16.9); Immature Granulocytes % 0.8 % (0-4); Lymphocytes % 6.3 %; Mean Corpuscular HGB Conc 30.5 g/dL (31.6-35.5); Mean Corpuscular Hemoglobin 26.2 pg (28.0-33.3); Mean Platelet Volume 11.1 fL (9.4-12.4); Monocytes # 1.5 K/mcL (0.0-1.3); Neutrophils # 12.6 K/mcL (1.6-8.9); Platelet Count 201 K/mcL (140-400); Red Blood Count 2.86 M/mcL (4.19-5.50); Red Cell Distribution Width 17.2 % (11.5-14.5); Segmented Neutrophils % 81.8 %
[2016-11-29 07:27] LABS: Calcium 8.4 mg/dL (8.6-10.8); Potassium 4.5 mEq/L (3.5-4.5)
--- NOTE | 2016-11-29 08:34 | Internal Med Progress Note ---
<Virginia Tinoco - Last Filed: 11/29/16 08:31> Date of Encounter: 11/29/16 Time of Encounter: 08:30 - Assessment and plan (1) Symptomatic anemia Current Visit: Yes Status: Acute Assessment and plan: yesterday patient was symptomatically anemic. Hg was 7.7 yesterday, he was transfused one unit of blood yesterday, but Hg this morning was 7.4. He has mild tachycardia this morning. Will transfuse another unit today and re check CBC two hours afterwards. Source of blood loss likely from nephrostomy tube. Stool occult blood pending. Yesterday, patient had an episode of confusion that subsided. CT head was negative for any acute intracranial abnormality. (2) Bladder outlet obstruction Current Visit: Yes Status: Acute Assessment and plan: Urology is following. s/p Nephrostomy tube placement. Per urology, he is ok to D/C home with home health assistance for daily nephrostomy tube flushing, and follow up with Dr. Cedillo outpatient. Urology will arrange antegrade stent by radiology in 1-2 weeks. 11/29 Patient still appears to be bleeding from urostomy. Will transfuse another unit of blood today and repeat CBC. If patient continues to bleed, or H&H unchanged, we will contact urology. (3) Acute kidney injury superimposed on CKD Current Visit: Yes Status: Resolved Assessment and plan: GEORGE on CKD III, Cr today was 1.48, continuing to improve. 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 POD 8, s/p nephrostomy tube 11/21, nephrostomy tube output is serosanguinous today HB downtrending, 7.5 after a unit of blood yesterday. Abdomen/Pelvic CT done yesterday shows s/p Left percutaneous nephrostomy catheter placement with intermediate attenuation within the left ureter compatible with hemorrhage along with left perinephric edema. Other chronic findings of retroperitoneal nodes are stable Continue to follow (4) COPD (chronic obstructive pulmonary disease) Current Visit: Yes Status: Chronic Assessment and plan: Stable, continue home med and nebulizer PRN. Qualifiers: COPD type: emphysema Emphysema type: other Qualified Code(s): J43.8 - Other emphysema (5) Depression Current Visit: Yes Status: Chronic Assessment and plan: Patient is already on Zoloft Psych has evaluated. No suicidal ideation. no acute psychiatric issues to address at this time. 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 Continue basal and medium dose sliding scale insulin, monitor closely. Qualifiers: Diabetes mellitus type: type 2 Diabetes mellitus complication status: with kidney complications Diabetes mellitus complication detail: with chronic kidney disease Diabetes mellitus intermediate insulin use: with medical terminologist use Chronic kidney disease stage: stage 3 (moderate) Qualified Code(s): E11.22 - Type 2 diabetes mellitus with diabetic chronic kidney disease; N18.3 - Chronic kidney disease, stage 3 (moderate); Z79.4 - superintendent terminal (current) use of insulin (8) Hyperkalemia Current Visit: Yes Status: Resolved Assessment and plan: K today was 4.5, stable. Kayexalate given yesterday continue to monitor. (9) Chronic a-fib Current Visit: Yes Status: Chronic Assessment and plan: Rate controlled. Pt was on eliquis, urostomy still has some blood present-continue to hold. (10) Congestive heart failure Current Visit: Yes Status: Chronic Assessment and plan: last echo from 10/18/15 showed LVEF 55%, moderate concentric LVH, atypical septal motion, indeterminate diastolic function. no aortic regurg, no significant aortic stenosis. No signs of exacerbation. 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 He is alert and oriented x3 today. He denies nausea, vomiting, diarrhea, fever, chills. He reports some episode of dizziness last night. He denies shortness of breath. He is currently on 2L oxygen, which is what he is on at home. He denies chest pain. Nephrostomy tube has about 400ml of serosanguinous fluid in it. - Constitutional Vitals: Temp Pulse Resp BP Pulse Ox 98.7 F 94 18 91/61 94 L 11/29/16 07:02 11/29/16 07:02 11/29/16 07:02 11/29/16 07:02 11/29/16 07:02 General appearance: Present: A&O X 3, morbidly obese, pleasant, no acute distress, answers questions appropriately - Head Head exam: Present: atraumatic, normocephalic - Eye Additional comments: right eye sewn shut, had to be removed. - Neck Neck exam general surgery: Present: supple, trachea midline - Respiratory Additional comments: mild right lower lobe crackles present. - Cardiovascular Cardiovascular exam: Present: tachycardia - GI/Abdominal GI/Abdominal exam: Present: distended, normal bowel sounds, soft. Absent: tenderness - Additional comments: left nephrostomy tube in place, draining serosanguinous fluid. - Extremities Exam Additional comments: +1 pitting edema on left lower extremity. - Back Exam Additional comments: large lipoma present on mid-right thoracic area. - Neurological Exam Neurological exam: Present: alert, oriented X3, no focal deficits - Psychiatric Psychiatric exam: Present: anxious, depressed Internal Medicine: Result - Labs CBC & Chem 7: 11/29/16 06:30 11/29/16 06:30 Labs: Short CBC 11/28/16 11/29/16 Range/Units 15:14 06:30 WBC 12.7 H D 15.4 H (4.3-11.1) K/mcL Hgb 7.7 L 7.5 L (12.9-16.9) g/dL Hct 25.5 L 24.6 L (37.5-50.1) % Plt Count 207 201 (140-400) K/mcL Neutrophils # 10.6 H 12.6 H (1.6-8.9) K/mcL BMP 11/28/16 11/29/16 15:14 06:30 Sodium 139 139 Potassium 5.0 H 4.5 Chloride 103 104 Carbon Dioxide 29 28 BUN 27 H 29 H Creatinine 1.51 H 1.48 H Glucose 113 H 104 H Calcium 9.2 8.4 L - ABG Interpretation ABG results: PT/INR, D-dimer PT 12.9 Seconds (9.4-12.1) H 11/27/16 06:09 - Impressions Impressions Head CT 11/28/16 16:05 IMPRESSION: No acute intracranial abnormality. D/ / 11/28/2016 17:46:09 Devi Cifuentes MD / [email or web address] Interpreting Provider: Devi Cifuentes MD - VTE Documentation of Mechanical Device: Intermittent pneumatic compression device Consult Discharge Plan - Plan Referrals: Mars Ledezma MD [Partnered Physician] - (Follow up one week after discharge.) [facility],PCP [Primary Care Provider] - 12/05/16 9:15 am Prescriptions: Amlodipine [Norvasc] 5 mg PO DAILY #30 tablet <Elkin Chavez H - Last Filed: 11/29/16 09:24> - Constitutional Vitals: Temp Pulse Resp BP Pulse Ox 98.7 F 94 18 91/61 94 L 11/29/16 07:02 11/29/16 07:02 11/29/16 07:02 11/29/16 07:02 11/29/16 07:02 Internal Medicine: Result - Labs CBC & Chem 7: 11/29/16 06:30 11/29/16 06:30 Labs: Short CBC 11/28/16 11/29/16 Range/Units 15:14 06:30 WBC 12.7 H D 15.4 H (4.3-11.1) K/mcL Hgb 7.7 L 7.5 L (12.9-16.9) g/dL Hct 25.5 L 24.6 L (37.5-50.1) % Plt Count 207 201 (140-400) K/mcL Neutrophils # 10.6 H 12.6 H (1.6-8.9) K/mcL BMP 11/28/16 11/29/16 15:14 06:30 Sodium 139 139 Potassium 5.0 H 4.5 Chloride 103 104 Carbon Dioxide 29 28 BUN 27 H 29 H Creatinine 1.51 H 1.48 H Glucose 113 H 104 H Calcium 9.2 8.4 L - ABG Interpretation ABG results: PT/INR, D-dimer PT 12.9 Seconds (9.4-12.1) H 11/27/16 06:09 - Impressions Impressions Head CT 11/28/16 16:05 IMPRESSION: No acute intracranial abnormality. D/ / 11/28/2016 17:46:09 Devi Cifuentes MD / [facility] Interpreting Provider: Devi Cifuentes MD - Attending Attestation decrease Sertraline from 100 mg down to 50 mg daily, contribuiting to confusion ? 1 unit of RBCs I examined this patient and my medical decision-making was reviewed with the WRECKING MECHANIC/PA/Advanced Practice Nurse/Resident Physician. I agree with the documented findings, disposition and treatment plan as described except to the extent set forth below.
[2016-11-29] MEDS: Pyridoxine (B-6) 50 MG TABLET PO SCH (08:46)
[2016-11-29] MEDS: Insulin LISPRO 300 UNITS/3 ML VIAL SQ SCH ×7 (08:48→22:40)
[2016-11-29] MEDS: amLODIPine 5 MG TABLET PO SCH (08:50)
[2016-11-29] MEDS: Bicalutamide 50 MG TABLET PO SCH (08:51)
[2016-11-29] MEDS: Ascorbic Acid 500 MG TABLET PO SCH (08:51)
[2016-11-29] MEDS: Artificial Tears SOLN 15 ML BOTTLE BOTH EYES SCH ×4 (08:52→22:40)
[2016-11-29] MEDS ORDERED: 0.9 % Sodium Chloride 250 ML ONE (10:00)
--- NOTE | 2016-11-29 10:33 | Event Note ---
Date of Encounter: 11/29/16 Time of Encounter: 10:32 Neph tube has still been bloody. I called Dr. Donahue regarding it. He will review the films and consider placing an antegrade stent to try to minimize the bleeding. I will place him NPO.
[2016-11-29] MEDS: Acetaminophen 325 MG TABLET PO PRN (13:58)
[2016-11-29] MEDS ORDERED: methylPREDNISolone 125 MG/2 ML VIAL IVP ONE (14:01)
[2016-11-29] MEDS ORDERED: *HR* FentaNYL (PF) 100 MCG/2 ML VIAL IV PRN (14:02)
[2016-11-29] MEDS ORDERED: *HR* Midazolam HCl 2 MG/2 ML VIAL IV PRN (14:02)
[2016-11-29] MEDS ORDERED: ceFAZolin 2,000 MG in D5% in Water (Mini-Bag+) 100 ML IVPB ONE (14:03)
--- NOTE | 2016-11-29 14:04 | Pre-Sedation Evaluation ---
Pre-sedation evaluation - Pre-sedation checklist Date of procedure: 11/21/16 Procedure: neph tube Recent Vitals: Last Vital Signs Temp 98.5 F 11/29/16 13:05 Pulse 95 11/29/16 13:05 Resp 17 11/29/16 13:05 BP 114/74 11/29/16 13:05 Pulse Ox 97 11/29/16 13:05 H&P (including ROS) documented in medical record: Yes Previous reaction to sedatives/anesthetics: No Dietary Status: NPO after Midnight Airway Assessment: Patient can open mouth completely, TMJ function normal, Micrognathia (under-bite, receding chin) absent, Neck with adequate range of motion Dentition: dentures removed Possible difficult airway: No ASA Classification *see protocol: CLASS II-Mild systemic disease Plan of Care: Pt appropriate candidate for procedure/moderate/conscious sedation , Risks/benefits of procedure/sedation discussed w/ patient/family
[2016-11-29] MEDS ORDERED: ceFAZolin 3,000 MG in D5% in Water 100 ML IVPB ONE ×2 (14:16→17:56)
[2016-11-29] MEDS ORDERED: 0.9 % Sodium Chloride 500 ML ONE ×2 (14:25→15:05)
[2016-11-29 15:26] LABS: Basophils % 0.3 %; Eosinophils # 0.2 K/mcL (0.0-0.6); Hematocrit 26.8 % (37.5-50.1); Hemoglobin 8.3 g/dL (12.9-16.9); Immature Granulocytes % 0.5 % (0-4); Lymphocytes # 0.8 K/mcL (0.6-4.6); Lymphocytes % 5.6 %; Mean Corpuscular Hemoglobin 26.2 pg (28.0-33.3); Mean Corpuscular Volume 84.5 fL (83.0-100.0); Mean Platelet Volume 10.5 fL (9.4-12.4); Monocytes # 1.3 K/mcL (0.0-1.3); Monocytes % 8.6 %; Neutrophils # 12.4 K/mcL (1.6-8.9); Platelet Count 194 K/mcL (140-400); Red Blood Count 3.17 M/mcL (4.19-5.50); Red Cell Distribution Width 16.9 % (11.5-14.5)
--- NOTE | 2016-11-29 15:44 | IR Procedure Note ---
Date of procedure: 11/29/16 Consent Obtained: Written consent Timeout: Correct patient and procedure verified, Correct site verified, Time out performed, Skin prep completed Indications: Ureteric bstruction, left, prostate ca Procedure Performed: ureteric stent, removal of nephrostomy Site/Technique: left, 10F stent placed Results/Findings: adequate placement Estimated blood loss (cc): 2 Complications: None; Tolerated procedure well Post Procedure Treatment Plan: dc to floor
[2016-11-29] MEDS: Insulin DETEMIR 100 UNIT/ML X5UNITS SQ SCH (22:41)
[2016-11-30] MEDS: Gabapentin 100 MG CAPSULE PO SCH ×3 (06:18→22:09)
[2016-11-30 07:06] LABS: Calcium 8.5 mg/dL (8.6-10.8)
[2016-11-30 07:28] LABS: Hematocrit 25.9 % (37.5-50.1); Hemoglobin 8.2 g/dL (12.9-16.9); Mean Corpuscular HGB Conc 31.7 g/dL (31.6-35.5); Mean Corpuscular Hemoglobin 26.9 pg (28.0-33.3); Mean Corpuscular Volume 84.9 fL (83.0-100.0); Mean Platelet Volume 11.1 fL (9.4-12.4); Platelet Count 219 K/mcL (140-400); Red Blood Count 3.05 M/mcL (4.19-5.50); Red Cell Distribution Width 17.1 % (11.5-14.5)
[2016-11-30] MEDS: Insulin LISPRO 300 UNITS/3 ML VIAL SQ SCH ×7 (09:32→22:03)
[2016-11-30] MEDS: Ascorbic Acid 500 MG TABLET PO SCH (09:33)
[2016-11-30] MEDS: Pyridoxine (B-6) 50 MG TABLET PO SCH (09:33)
[2016-11-30] MEDS: Bicalutamide 50 MG TABLET PO SCH (09:33)
[2016-11-30] MEDS: amLODIPine 5 MG TABLET PO SCH (09:34)
[2016-11-30] MEDS: Artificial Tears SOLN 15 ML BOTTLE BOTH EYES SCH ×4 (09:34→22:09)
--- NOTE | 2016-11-30 11:40 | Internal Med Progress Note ---
<Virginia Tinoco - Last Filed: 11/30/16 11:38> Date of Encounter: 11/30/16 Time of Encounter: 11:00 - Assessment and plan (1) Bladder outlet obstruction Current Visit: Yes Status: Acute Assessment and plan: Urology is following. s/p antegrade stent placement with removal of nephrostomy tube yesterday by [facility], follow up with Dr. Cedillo outpatient. 11/30 patient continues to have hematuria after stent placement yesterday. plan for urinalysis later today and tomorrow morning. (2) Symptomatic anemia Current Visit: Yes Status: Acute Assessment and plan: patient had an episode of confusion that subsided. CT head was negative for any acute intracranial abnormality. Stool occult blood pending. Patient had one unit transfused yesterday, Hg now stable at 8.2 (3) Acute kidney injury superimposed on CKD Current Visit: Yes Status: Resolved Assessment and plan: Abdomen/Pelvic CT done shows s/p Left percutaneous nephrostomy catheter placement with intermediate attenuation within the left ureter compatible with hemorrhage along with left perinephric edema. Other chronic findings of retroperitoneal nodes are stable Continue to follow GEORGE on CKD III, Cr today was 1.57, slightly increased from yesterday. 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 nephrostomy tube placed 11/21, removed on 11/29 HB stable today at 8.2, transfused on unit yesterday. (4) COPD (chronic obstructive pulmonary disease) Current Visit: Yes Status: Chronic Assessment and plan: Stable, continue home med and nebulizer PRN. Qualifiers: COPD type: emphysema Emphysema type: other Qualified Code(s): J43.8 - Other emphysema (5) Depression Current Visit: Yes Status: Chronic Assessment and plan: Patient is already on Zoloft Psych has evaluated. No suicidal ideation. no acute psychiatric issues to address at this time. zoloft dose decreased to 50 yesterday due to increased risk of bleeding. 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 Continue basal and medium dose sliding scale insulin, monitor closely. Qualifiers: Diabetes mellitus type: type 2 Diabetes mellitus complication status: with kidney complications Diabetes mellitus complication detail: with chronic kidney disease Diabetes mellitus senior care insulin use: with senior care use Chronic kidney disease stage: stage 3 (moderate) Qualified Code(s): E11.22 - Type 2 diabetes mellitus with diabetic chronic kidney disease; N18.3 - Chronic kidney disease, stage 3 (moderate); Z79.4 - intermediate (current) use of insulin (8) Hyperkalemia Current Visit: Yes Status: Resolved Assessment and plan: K today was 5 Kayexalate 30g given today. continue to monitor. (9) Chronic a-fib Current Visit: Yes Status: Chronic Assessment and plan: Rate controlled. Pt was on eliquis, continue to hold due to hematuria. (10) Congestive heart failure Current Visit: Yes Status: Chronic Assessment and plan: last echo from 10/18/15 showed LVEF 55%, moderate concentric LVH, atypical septal motion, indeterminate diastolic function. no aortic regurg, no significant aortic stenosis. No signs of exacerbation. 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 He is alert and oriented x3 today. He denies nausea, vomiting, diarrhea, fever, chills, denies dizziness, shortness of breath. - Constitutional Vitals: Temp Pulse Resp BP Pulse Ox 97.2 F L 89 18 136/98 93 L 11/30/16 07:49 11/30/16 07:49 11/30/16 07:49 11/30/16 07:49 11/30/16 09:38 General appearance: Present: mild distress, A&O X 3, morbidly obese, answers questions appropriately - Head Head exam: Present: atraumatic, normocephalic - Eye Additional comments: right eye surgically removed. - Neck Neck exam general surgery: Present: supple, trachea midline - Respiratory Respiratory exam: Present: CTAB - Cardiovascular Additional comments: no JVD present. RRR, no murmurs noted. - GI/Abdominal GI/Abdominal exam: Present: normal bowel sounds Additional comments: abdomen obese, non tender. - Extremities Exam Additional comments: no cyanosis, edema, clubbing noted. normal capillary refill. - Back Exam Additional comments: lipoma present on right upper thoracic area. - Neurological Exam Neurological exam: Present: alert, oriented X3, no focal deficits - Psychiatric Psychiatric exam: Present: anxious, depressed Internal Medicine: Result - Labs CBC & Chem 7: 11/30/16 06:16 11/30/16 06:16 Labs: Short CBC 11/29/16 11/30/16 Range/Units 15:17 06:16 WBC 14.7 H 10.5 (4.3-11.1) K/mcL Hgb 8.3 L 8.2 L (12.9-16.9) g/dL Hct 26.8 L 25.9 L (37.5-50.1) % Plt Count 194 219 (140-400) K/mcL Neutrophils # 12.4 H (1.6-8.9) K/mcL BMP 11/30/16 06:16 Sodium 137 Potassium 5.0 H Chloride 103 Carbon Dioxide 24 BUN 35 H Creatinine 1.57 H Glucose 132 H Calcium 8.5 L - ABG Interpretation ABG results: PT/INR, D-dimer PT 12.9 Seconds (9.4-12.1) H 11/27/16 06:09 - Impressions Impressions Urethrogram 11/29/16 00:00 IMPRESSION: Double-J left ureteric stent placement and removal of left nephrostomy tube. D/ : / 11/29/2016 15:43:42 [facility] Donahue MD [facility] Inter[facility]ting Provider: Ruth Donahue MD Ureteral Stent Placement 11/29/16 10:34 IMPRESSION: Double-J left ureteric stent placement and removal of left nephrostomy tube. D/ / 11/29/2016 15:43:42 Ruth Donahue MD / [facility] Interpreting Provider: Ruth Donahue MD - VTE Documentation of Mechanical Device: Intermittent pneumatic compression device Consult Discharge Plan - Plan Referrals: Mars Ledezma MD [Partnered Physician] - (Follow up one week after discharge.) ID,PCP [Primary Care Provider] - 12/05/16 9:15 am Prescriptions: Amlodipine [Norvasc] 5 mg PO DAILY #30 tablet <Elkin Chavez H - Last Filed: 11/30/16 15:24> - Constitutional Vitals: Temp Pulse Resp BP Pulse Ox 97.4 F L 90 17 129/87 94 L 11/30/16 12:11 11/30/16 12:11 11/30/16 12:11 11/30/16 12:11 11/30/16 12:11 Internal Medicine: Result - Labs CBC & Chem 7: 11/30/16 06:16 11/30/16 06:16 Labs: Short CBC 11/29/16 11/30/16 Range/Units 15:17 06:16 WBC 14.7 H 10.5 (4.3-11.1) K/mcL Hgb 8.3 L 8.2 L (12.9-16.9) g/dL Hct 26.8 L 25.9 L (37.5-50.1) % Plt Count 194 219 (140-400) K/mcL Neutrophils # 12.4 H (1.6-8.9) K/mcL BMP 11/30/16 06:16 Sodium 137 Potassium 5.0 H Chloride 103 Carbon Dioxide 24 BUN 35 H Creatinine 1.57 H Glucose 132 H Calcium 8.5 L - ABG Interpretation ABG results: PT/INR, D-dimer PT 12.9 Seconds (9.4-12.1) H 11/27/16 06:09 - Impressions Impressions Urethrogram 11/29/16 00:00 IMPRESSION: Double-J left ureteric stent placement and removal of left nephrostomy tube. D/ / 11/29/2016 15:43:42 Ruth Donahue MD / [facility] Interpreting Provider: Ruth Donahue MD Ureteral Stent Placement 11/29/16 10:34 IMPRESSION: Double-J left ureteric stent placement and removal of left nephrostomy tube. D/ / 11/29/2016 15:43:42 Ruth Donahue MD / [facility] Interpreting Provider: Ruth Donahue MD - Attending Attestation Sertaline was decreased from 100 mg down to 50 mg daily due to possible toxicity /contributing to his delirium I examined this patient and my medical decision-making was reviewed with the STRIP CLEANER/PA/Advanced Practice Nurse/Resident Physician. I agree with the documented findings, disposition and treatment plan as described except to the extent set forth below.
--- NOTE | 2016-11-30 15:53 | Discharge Summary ---
<Virginia Tinoco - Last Filed: 12/03/16 16:40> Date of Encounter: 12/03/16 Time of Encounter: 08:00 - Discharge Diagnosis (1) Acute respiratory failure with hypoxia and hypercapnia Priority: Primary Status: Acute Comments: likely secondary to pnemonia, possibly gram negative. (2) Sepsis Priority: Secondary Status: Acute Qualifiers: Sepsis type: sepsis due to unspecified organism Qualified Code(s): A41.9 - Sepsis, unspecified organism (3) Bladder outlet obstruction Priority: Secondary Status: Acute (4) Symptomatic anemia Priority: Secondary Status: Acute (5) Acute kidney injury superimposed on CKD Priority: Secondary Status: Resolved (6) COPD (chronic obstructive pulmonary disease) Priority: Secondary Status: Chronic Qualifiers: COPD type: emphysema Emphysema type: other Qualified Code(s): J43.8 - Other emphysema (7) Depression Priority: Secondary Status: Chronic Qualifiers: Depression Type: unspecified Qualified Code(s): F32.9 - Major depressive disorder, single episode, unspecified (8) Cancer associated pain Priority: Secondary Status: Chronic (9) Diabetes Priority: Secondary Status: Acute Qualifiers: Diabetes mellitus type: type 2 Diabetes mellitus complication status: with kidney complications Diabetes mellitus complication detail: with chronic kidney disease Diabetes mellitus intermission coordinator insulin use: with intermission coordinator use Chronic kidney disease stage: stage 3 (moderate) Qualified Code(s): E11.22 - Type 2 diabetes mellitus with diabetic chronic kidney disease; N18.3 - Chronic kidney disease, stage 3 (moderate); Z79.4 - intermission coordinator (current) use of insulin (10) Hyperkalemia Priority: Secondary Status: Resolved (11) Chronic a-fib Priority: Secondary Status: Chronic (12) Congestive heart failure Priority: Secondary Status: Chronic Qualifiers: Congestive heart failure type: unspecified congestive heart failure type Congestive heart failure chronicity: unspecified congestive heart failure chronicity Qualified Code(s): I50.9 - Heart failure, unspecified (13) MARTHA treated with BiPAP Priority: Secondary Status: Chronic (14) 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 (15) DVT prophylaxis Priority: Secondary Status: Acute - Discharge Medications Prescriptions: OxyCODONE Immed Rel [Roxicodone 5 MG] 5 mg PO Q6HR PRN #28 tablet PRN Reason: Moderate Pain (4-6) Amlodipine [Norvasc] 5 mg PO DAILY #30 tablet Sertraline [Zoloft] 50 mg PO QAM #30 tablet Home Medications: Acetaminophen [Tylenol] 325 mg PO BID PRN 10/17/15 [History] Allopurinol [Zyloprim 300 MG] 300 mg PO DAILY 10/17/15 [History] Ascorbic Acid [Vitamin C] 1,000 mg PO DAILY 10/17/15 [History] Atorvastatin Calcium [Lipitor] 40 mg PO QPM 10/17/15 [History] Carboxymethylcellulos/Glycerin [Refresh Optive Eye Drops] 1 drop BOTH EYES QID 10/17/15 [History] Docusate Sodium [Colace] 100 mg PO BID 10/17/15 [History] Insulin Glargine [Lantus] 56 unit SQ DAILY 10/17/15 [History] Ipratropium/Albuterol Neb [Duoneb] 3 ml IH QID PRN 10/17/15 [History] Modafinil [Provigil] 400 mg PO QAM 10/17/15 [History] Multivitamin [Multivitamins] 1 tab PO QAM 10/17/15 [History] Omeprazole [PriLOSEC] 40 mg PO DAILY 10/17/15 [History] Petrolatum,Hydrophilic [Aloe [place]] 1 appl TP AD PRN 10/17/15 [History] Saliva Stimulant [Biotene Moisturizing Rinse] 3 - 5 spray PO BID 10/17/15 [ History] Benzocaine/Menthol [Sore Throat Lozenge] 1 each MM QID PRN 05/24/16 [History] Bicalutamide [Casodex] 50 mg PO DAILY 05/24/16 [History] Capsaicin 0.025% [Trixaicin] 1 appl TP QID 05/24/16 [History] Pyridoxine HCl [Vitamin B-6] 100 mg PO DAILY 05/24/16 [History] Water for Irrigation (sterile) [Water for irrigation (sterile)] 0 ml .ROUTE BID 05/24/16 [History] Calcium Carbonate [Calcium] 1,000 mg PO BID 11/17/16 [History] Ferrous Sulfate 325 mg PO DAILY 11/17/16 [History] Gabapentin [Neurontin] 300 mg PO Q8H 11/17/16 [History] Urea 1 appl TP BID 11/17/16 [History] Vardenafil HCl [Levitra] 5 mg PO AD PRN 11/17/16 [History] Amlodipine [Norvasc] 5 mg PO DAILY #30 tablet 11/27/16 [Rx] OxyCODONE Immed Rel [Roxicodone 5 MG] 5 mg PO Q6HR PRN #28 tablet 11/30/16 [Rx] Sertraline [Zoloft] 50 mg PO QAM #30 tablet 11/30/16 [Rx] Allergies/Adverse Reactions: Allergies IVP dye Allergy (Uncoded 10/17/15 06:47) Vomiting Procedures/tests Complete & Pending: Procedures Performed prior 72 hours Category Date Time Status CT head/brain wo con [CT] Stat Cat Scan 11/28/16 16:05 Completed IR ureter drain/stent [IR] Routine IR 11/29/16 10:34 Completed IR urethrogram v existing cath [IR] Routine IR 11/29/16 Completed Date of admission: 11/17/16 22:08 [facility] care physician: [facility] Consults: 11/17/16 22:46 Consult to Occupational Therapy [CONS] Routine Comment: Evaluate, develop and implement POC Consult to Physical Therapy [CONS] Routine Comment: Evaluate, develop and implement POC 11/17/16 23:06 Consult to Nutrition [CONS] Routine Comment: Consulting Provider: NUTRITION Reason for Dietary Consult: Supplemental Nutrition Consult to Pastoral Services [CONS] Routine Comment: 11/17/16 23:42 Consult to [place] Machine Operator [CONS] Routine Comment: 11/18/16 12:20 Consult to Urology [CONS] Routine Consulting Provider: Urology [place] Reason for Consult: Hydronephrosis Call Completed: Yes 11/18/16 12:21 Consult to Palliative Care [CONS] Routine Comment: Consulting Provider: Palliative Care [place] 11/18/16 13:23 Consult to Interventional Radiology [CONS] Routine Consulting Provider: Radiology Interventional Cols Reason for Consult: left hydronephrosis. Please place left neph tube or left antegrade stent. 11/20/2016 is okay. Call Completed: No 11/19/16 09:55 Consult to Oncology [CONS] Routine Consulting Provider: [facility] Reason for Consult: metastatic prostate cancer. Call Completed: Yes 11/23/16 08:58 Consult to Marketing Professional [CONS] Routine Reason for SW Consult: Discharge disposition 11/23/16 09:46 Consult to Psychiatry [CONS] Routine Consulting Provider: Saad Perez Reason for Consult: patient states "severely depressed, wants eval in- patient. Pls evaluate. No Suicidal ideation" Call Completed: No - Patient Status Disposition: Transfer Other Condition: Critical Functional capacity at discharge: bed bound Overall status at discharge: patient is not back to baseline - Discharge Instructions Follow Up With: Mars Ldeezma MD [Partnered Physician] - (Follow up one week after discharge.) [facility],PC[facility] [Primary Care Provider] - 12/05/16 9:15 am Monserrat Marcus MD [Partnered Physician] - Additional Instructions: Continue IV vancomycin, cefepime, Levaquin for HCAP. - Diet and Activity Activity: increase activity as tolerated, other (bedrest. ) Diet: other (renal,diabetic diet) Hospital course: Mr. 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 Patient presented to [facility] on 11/17/16 with CC of abdominal pain and weakness that he was having for several days. Retroperitoneal ultrasound showed moderate left sided hydronephrosis and proximial hydroureter. No significant right sided hydronephrosis was seen, and there was marked urinary distention. Urology was consulted, and they recommended placement of a left nephrostomy tube, which was done. KUB confirmed proper placement of the nephrostomy tube. Due to patient's significant metastatic prostate cancer, palliative care was consulted to discuss goals of care. The patient wished to remain full code. During the patient's hospital stay, he was very anemic and his Hg kept dropping. His Eliquis was held and his Afib was rate controlled. He was transfused a total of 5 units of blood throughout the course of his hospital stay. After placement of his nephrostomy tube, the patient had a large amount of blood draining from the tube, which required blood transfusion. Because of his continuous bleeding, the patient's zoloft home dose was decreased due to its associated risk with bleeding. The patient seemed to have severe depression, so Psychiatry was consulted during his hospitalization, and they recommended to continue with the current medical management. Patient developed occasional episodes of confusion as well, CT head showed no acute intracranial abnormality. Because the patient continued to bleed from his nephrostomy tube, urology recommended placement of an antegrade stent and removal of nephrostomy tube to minimize bleeding. After this was done, the patient reported some hematuria, urinalysis showed infection and patient was started on ceftriaxone. Urine cultures were ordered. Urology continued to follow the patient's clinical course, and stated that bilateral nephrostomy tube placement will be considered if patient's renal function continues to decline. On morning of 12/03/16, patient had a fever, HR was above 100, and patient was hard to arouse. STAT chest xray, CT abdomen/pelvis, respiratory infection panel , bood cultures x2, ABG, EKG, lactate were ordered. Patient's lactic acid was .5. CT A/P showed right pleural effusion with bibasilar airspace consolidation consistent with probable multifocal pneumonia. Patient met sepsis criteria. He was covered with vancomycin, cefepime, and Levaquin. ABG showed severe respiratory acidosis with slight metabolic compensation, patient was immediately placed on BiPAP. Family members were updated about the situation and at their request, patient will be transferred to [facility]. Patient's repeat ABG showed some improvement of CO2. Patient was accepted for transfer at [facility] by Dr. Teixeira. Plan: patient will be transferred to [facility]. - Time Spent with Patient Total time spent providing and/or coordinating discharge services: - Constitutional Vitals: Temp Pulse Resp BP Pulse Ox 97.4 F L 90 17 129/87 94 L 11/30/16 12:11 11/30/16 12:11 11/30/16 12:11 11/30/16 12:11 11/30/16 12:11 General appearance: Present: mild distress, morbidly obese Exam: patient is having abdominal breathing, is otunded, responds to sternal rub by opening his eyes, does not answer questions. - Head Head exam: Present: atraumatic, normocephalic - Eye Additional comments: right eye has been surgically removed. - Neck Neck exam general surgery: Present: supple, trachea midline - Respiratory Additional comments: right lower lobe crackles present. - Cardiovascular Cardiovascular exam: Present: irregular rhythm - GI/Abdominal GI/Abdominal exam: Present: distended, soft. Absent: tenderness Additional comments: obese, non tender, positive bowel sounds. - Extremities Exam Extremities exam: Absent: cyanotic, pedal edema - Back Exam Additional comments: large lipoma present on right side of upper thoracic area. - Neurological Exam Neurological exam: Present: alert, altered. Absent: facial droop - Psychiatric Psychiatric exam: Present: anxious, depressed - VTE Documentation of Mechanical Device: Intermittent pneumatic compression device <Elkin Chavez - Last Filed: 12/03/16 16:53> Procedures/tests Complete & Pending: Procedures Performed prior 72 hours Category Date Time Status CT abd pelvis wo no iv no oral [CT] Stat Cat Scan 12/03/16 07:55 Draft EKG [ECG 12 lead ECG] [ECG] Stat Y 12/03/16 08:06 Ordered Date of admission: 11/17/16 22:08 Primary care physician: [facility]CP [facility] Consults: 11/17/16 22:46 Consult to Occupational Therapy [CONS] Routine Comment: Evaluate, develop and implement POC Consult to Physical Therapy [CONS] Routine Comment: Evaluate, develop and implement POC 11/17/16 23:06 Consult to Nutrition [CONS] Routine Comment: Consulting Provider: NUTRITION Reason for Dietary Consult: Supplemental Nutrition Consult to Pastoral Services [CONS] Routine Comment: 11/17/16 23:42 Consult to [place] Machine Operator [CONS] Routine Comment: 11/18/16 12:20 Consult to Urology [CONS] Routine Consulting Provider: Urology [place] Reason for Consult: Hydronephrosis Call Completed: Yes 11/18/16 12:21 Consult to Palliative Care [CONS] Routine Comment: Consulting Provider: Palliative Care [place] 11/18/16 13:23 Consult to Interventional Radiology [CONS] Routine Consulting Provider: Radiology Interventional Cols Reason for Consult: left hydronephrosis. Please place left neph tube or left antegrade stent. 11/20/2016 is okay. Call Completed: No 11/19/16 09:55 Consult to Oncology [CONS] Routine Consulting Provider: [facility] Reason for Consult: metastatic prostate cancer. Call Completed: Yes 11/23/16 08:58 Consult to Marketing Professional [CONS] Routine Reason for SW Consult: Discharge disposition 11/23/16 09:46 Consult to Psychiatry [CONS] Routine Consulting Provider: Saad Perez Reason for Consult: patient states "severely depressed, wants eval in- patient. Pls evaluate. No Suicidal ideation" Call Completed: No 12/03/16 08:18 Consult to Respiratory Therapy [CONS] Routine Reason for Consult: [facility]. Please manage settings. Call Completed: No 12/03/16 12:51 Consult to Invasive Line Access Team [CONS] Routine Reason for Consult: Limited IV access Line Type: EPIV Hospital course: Mr. Blas is a 71 year old male - Time Spent with Patient Total time spent providing and/or coordinating discharge services: - Constitutional Vitals: Temp Pulse Resp BP Pulse Ox 99.3 F 72 18 109/66 98 12/03/16 11:39 12/03/16 12:51 12/03/16 11:39 12/03/16 12:51 12/03/16 12:51 - Attending Attestation The patient slept latest ABG shows a pH of 7.29 and PCO2 to has improved down to 66 and a PO2 that has increased up to 256, he is currently on BiPAP settings of % oxygen. The patient was following simple commands able to blink once or twice to once or he has no questions. He mentioned that he wants to remain full code and understands the procedure is less processes about his transfer. Patient is a stable abdomen moment blood pressure is 101/56 heart rate 82. The patient will be transferred to [facility] to continue his plan of care. He was started on vancomycin, Levaquin and cefepime as a CT scan of the abdomen showed possible multifocal pneumonia. The risks were explained to his family members. His diagnoses at discharge will be acute on chronic hypoxic and hypercapnic respiratory failure secondary to acute COPD exacerbation with sepsis due to possible gram-negative pneumonia Start IV Solu-Medrol prior to transfer. Critical care time: 45 minutes
--- NOTE | 2016-11-30 17:08 | Urology Progress Note ---
Date of Encounter: 11/30/16 Time of Encounter: 17:07 - Assessment and Plan (1) Hydronephrosis Current Visit: Yes Status: Acute Assessment and plan: Left ureteral stent placed yesterday. He seems to be doing well. Will monitor urine color and H&H. Will repeat creatinine. Qualifiers: Qualified Code(s): N13.30 - Unspecified hydronephrosis (2) Prostate cancer metastatic to intrapelvic lymph node Current Visit: Yes Status: Chronic Assessment and plan: Per medical oncology. Progress Note Narrative: status post left antegrade stent placement yesterday. He feels well today. He is voiding and has some blood in the urine which is to be expected. Objective Initial Vital Signs Temp Pulse Resp BP Pulse Ox 98.2 F 95 18 107/69 98 11/17/16 17:50 11/17/16 17:50 11/17/16 17:50 11/17/16 17:50 11/17/16 17:50 - General physical appearance Present: well developed, well nourished, no distress - Respiratory Present: normal respiratory effort - Abdomen Present: soft (neph tube dressing removed. Mild staining on it.) - Labs 11/30/16 06:16 11/30/16 06:16 Diabetes panel 11/30/16 Range/Units 06:16 Sodium 137 (136-145) mEq/L Potassium 5.0 H (3.5-4.5) mEq/L Chloride 103 (98-109) mEq/L Carbon Dioxide 24 (19-29) mEq/L BUN 35 H (8-26) mg/dL Creatinine 1.57 H (0.72-1.25) mg/dL Glucose 132 H (70-99) mg/dL Calcium 8.5 L (8.6-10.8) mg/dL Calcium panel 11/30/16 Range/Units 06:16 Calcium 8.5 L (8.6-10.8) mg/dL Pituitary panel 11/30/16 Range/Units 06:16 Sodium 137 (136-145) mEq/L Potassium 5.0 H (3.5-4.5) mEq/L Chloride 103 (98-109) mEq/L Carbon Dioxide 24 (19-29) mEq/L BUN 35 H (8-26) mg/dL Creatinine 1.57 H (0.72-1.25) mg/dL Glucose 132 H (70-99) mg/dL Calcium 8.5 L (8.6-10.8) mg/dL Adrenal panel 11/30/16 Range/Units 06:16 Sodium 137 (136-145) mEq/L Potassium 5.0 H (3.5-4.5) mEq/L Chloride 103 (98-109) mEq/L Carbon Dioxide 24 (19-29) mEq/L BUN 35 H (8-26) mg/dL Creatinine 1.57 H (0.72-1.25) mg/dL Glucose 132 H (70-99) mg/dL Calcium 8.5 L (8.6-10.8) mg/dL - VTE Documentation of Mechanical Device: Intermittent pneumatic compression device Consult Discharge Plan - Plan Referrals: Mars Ledezma MD [Partnered Physician] - (Follow up one week after discharge.) ID,PCP [Primary Care Provider] - 12/05/16 9:15 am Prescriptions: OxyCODONE Immed Rel [Roxicodone 5 MG] 5 mg PO Q6HR PRN #28 tablet PRN Reason: Moderate Pain (4-6) Amlodipine [Norvasc] 5 mg PO DAILY #30 tablet Sertraline [Zoloft] 50 mg PO QAM #30 tablet
[2016-11-30 21:25] LABS: Bilirubin,Urine Negative (Negative); Blood,Urine Large (Negative); Clarity,Urine Cloudy (Clear); Color,Urine Yellow (Yellow); Glucose,Urine (UA) Normal (Normal); Ketones,Urine Negative (Negative); Leukocyte Esterase,Urine Large (Negative); Nitrite,Urine Negative (Negative); Protein,Urine 100 mg/dL (Neg-Trace); Specific Gravity,Urine 1.017 (1.010-1.025); Urobilinogen,Urine Normal (Normal)
[2016-11-30 21:27] LABS: Bacteria,Urine None Seen per hpf (None-Few); Hyaline Casts,Urine None Seen per lpf (None-Few); RBC,Urine TNTC per hpf (0-3); Squamous Epithelial Cell,Urine Moderate per lpf (None-Few); WBC,Urine TNTC per hpf (0-3)
[2016-11-30] MEDS: Insulin DETEMIR 100 UNIT/ML X5UNITS SQ SCH (22:04)
[2016-12-01] MEDS: *HR* OxyCODONE Immed Rel 5 MG TABLET PO PRN ×4 (00:40→22:25)
[2016-12-01] MEDS: Gabapentin 100 MG CAPSULE PO SCH ×3 (05:41→22:25)
--- NOTE | 2016-12-01 07:23 | Urology Progress Note ---
Date of Encounter: 12/01/16 Time of Encounter: 07:22 - Assessment and Plan (1) Hydronephrosis Current Visit: Yes Status: Acute Assessment and plan: Left ureteral stent in place. Flank pain is likely due to reflux up the stent. Recommend continuing oral pain medications for that. Qualifiers: Qualified Code(s): N13.30 - Unspecified hydronephrosis (2) Prostate cancer metastatic to intrapelvic lymph node Current Visit: Yes Status: Chronic Assessment and plan: Will need to have follow up with medical oncology. Progress Note Narrative: Doing okay. He is having some pain with voiding. Urine has cleared. Objective Initial Vital Signs Temp Pulse Resp BP Pulse Ox 98.2 F 95 18 107/69 98 11/17/16 17:50 11/17/16 17:50 11/17/16 17:50 11/17/16 17:50 11/17/16 17:50 - General physical appearance Present: well developed, well nourished, no distress - Respiratory Present: normal respiratory effort - Abdomen Present: soft - Genitourinary Present: normal penis with no external lesions Urine Appearance: Present: Clear - Labs 11/30/16 06:16 11/30/16 06:16 - VTE Documentation of Mechanical Device: Intermittent pneumatic compression device Consult Discharge Plan - Plan Referrals: Monserrat Marcus MD [Partnered Physician] - Mars Ledezma MD [Partnered Physician] - (Follow up one week after discharge.) [place],PCP [Primary Care Provider] - 12/05/16 9:15 am Prescriptions: OxyCODONE Immed Rel [Roxicodone 5 MG] 5 mg PO Q6HR PRN #28 tablet PRN Reason: Moderate Pain (4-6) Amlodipine [Norvasc] 5 mg PO DAILY #30 tablet Sertraline [Zoloft] 50 mg PO QAM #30 tablet
[2016-12-01] MEDS: amLODIPine 5 MG TABLET PO SCH (09:45)
[2016-12-01] MEDS: Pyridoxine (B-6) 50 MG TABLET PO SCH (09:45)
[2016-12-01] MEDS: Bicalutamide 50 MG TABLET PO SCH (09:45)
[2016-12-01] MEDS: Ascorbic Acid 500 MG TABLET PO SCH (09:45)
[2016-12-01] MEDS: Insulin LISPRO 300 UNITS/3 ML VIAL SQ SCH ×7 (09:46→22:26)
[2016-12-01] MEDS: Artificial Tears SOLN 15 ML BOTTLE BOTH EYES SCH ×4 (09:47→20:21)
--- NOTE | 2016-12-01 12:24 | Internal Med Progress Note ---
Date of Encounter: 12/01/16 Time of Encounter: 12:22 - Time Spent With Patient (1) Bladder outlet obstruction Current Visit: Yes Status: Acute Assessment and plan: Complains of dysuria at the moment, possible urinary tract infection Start Rocephin, send another UA and culture as the last UA from last night showed white blood cells and red blood cells too numerous to count Urology is following. s/p antegrade stent placement with removal of nephrostomy tube by IR. Per urology, follow up with Dr. Cedillo outpatient. 11/30 patient continues to have hematuria after stent placement yesterday. plan for urinalysis later today and tomorrow morning. (2) Symptomatic anemia Current Visit: Yes Status: Acute Assessment and plan: patient had an episode of confusion that subsided. CT head was negative for any acute intracranial abnormality. Stool occult blood pending. Patient had one unit transfused check CBC today and tomorrow (3) Acute kidney injury superimposed on CKD Current Visit: Yes Status: Resolved Assessment and plan: Abdomen/Pelvic CT done shows s/p Left percutaneous nephrostomy catheter placement with intermediate attenuation within the left ureter compatible with hemorrhage along with left perinephric edema. 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 nephrostomy tube placed 11/21, removed on 11/29 (4) COPD (chronic obstructive pulmonary disease) Current Visit: Yes Status: Chronic Assessment and plan: Stable, continue home med and nebulizer PRN. Qualifiers: COPD type: emphysema Emphysema type: other Qualified Code(s): J43.8 - Other emphysema (5) Depression Current Visit: Yes Status: Chronic Assessment and plan: Patient is already on Zoloft Psych has evaluated. No suicidal ideation. no acute psychiatric issues to address at this time. zoloft dose decreased to 50 yesterday due to increased risk of bleeding. 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 Continue basal and medium dose sliding scale insulin, monitor closely. Qualifiers: Diabetes mellitus type: type 2 Diabetes mellitus complication status: with kidney complications Diabetes mellitus complication detail: with chronic kidney disease Diabetes mellitus exterminator helper termite insulin use: with exterminator helper termite use Chronic kidney disease stage: stage 3 (moderate) Qualified Code(s): E11.22 - Type 2 diabetes mellitus with diabetic chronic kidney disease; N18.3 - Chronic kidney disease, stage 3 (moderate); Z79.4 - long-term (current) use of insulin (8) Hyperkalemia Current Visit: Yes Status: Resolved Assessment and plan: K was 5, check potassium today and consider more Kayexalate continue to monitor. (9) Chronic a-fib Current Visit: Yes Status: Chronic Assessment and plan: Rate controlled. Pt was on eliquis, continue to hold due to hematuria. (10) Congestive heart failure Current Visit: Yes Status: Chronic Assessment and plan: last echo from 10/18/15 showed LVEF 55%, moderate concentric LVH, atypical septal motion, indeterminate diastolic function. no aortic regurg, no significant aortic stenosis. No signs of exacerbation. 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 - Constitutional Vitals: Temp Pulse Resp BP Pulse Ox 99.0 F 89 22 122/83 93 L 12/01/16 12:13 12/01/16 12:13 12/01/16 12:13 12/01/16 12:13 12/01/16 12:13 General appearance: Present: mild distress, A&O X 3, morbidly obese, answers questions appropriately - Head Head exam: Present: atraumatic, normocephalic - Eye Eye exam: Present: PERRL (Left pupil normal), conjuntiva pink, sclera anicteric Pupils: Present: PERRL - Neck Neck exam general surgery: Present: supple, trachea midline. Absent: lymphadenopathy - Respiratory Respiratory exam: Present: decreased breath sounds, CTAB. Absent: accessory muscle use, rales, rhonchi, wheezes - Cardiovascular Cardiovascular exam: Present: RRR, +S1, +S2. Absent: diastolic murmur, gallop, rubs, systolic murmur - GI/Abdominal GI/Abdominal exam: Present: normal bowel sounds, soft, no peritoneal signs. Absent: distended, tenderness - Extremities Exam Extremities exam: Present: pedal edema (+1 pitting edema in both lower extremities), warm, radial pulses palpable and symetrical. Absent: calf tenderness, cyanotic - Neurological Exam Neurological exam: Present: CN II-XII intact, oriented X3, no focal deficits. Absent: pronater drift, facial droop, speech deficit - Skin Skin exam: Present: dry, intact Internal Medicine: Result - Labs CBC & Chem 7: 11/30/16 06:16 11/30/16 06:16 Labs: Urine 11/30/16 Range/Units 21:04 Urine Color Yellow (Yellow) Urine Clarity Cloudy A (Clear) Urine pH 6.0 (5.0-8.0) pH Units Ur Specific [place] 1.017 (1.010-1.025) Urine Protein 100 H (Neg-Trace) mg/dL Urine Glucose (UA) Normal (Normal) mg/dL - ABG Interpretation ABG results: PT/INR, D-dimer PT 12.9 Seconds (9.4-12.1) H 11/27/16 06:09 - VTE Documentation of Mechanical Device: Intermittent pneumatic compression device Consult Discharge Plan - Plan Referrals: Monserrat Marcus MD [Partnered Physician] - Mars Ledezma MD [Partnered Physician] - (Follow up one week after discharge.) [facility] [Primary Care Provider] - 12/05/16 9:15 am Prescriptions: OxyCODONE Immed Rel [Roxicodone 5 MG] 5 mg PO Q6HR PRN #28 tablet PRN Reason: Moderate Pain (4-6) Amlodipine [Norvasc] 5 mg PO DAILY #30 tablet Sertraline [Zoloft] 50 mg PO QAM #30 tablet
[2016-12-01] MEDS: *HR* Promethazine 25 MG/ML VIAL IVP PRN (12:36)
[2016-12-01 12:55] LABS: Hemoglobin 9.1 g/dL (12.9-16.9); Mean Corpuscular HGB Conc 30.3 g/dL (31.6-35.5); Mean Corpuscular Hemoglobin 25.8 pg (28.0-33.3); Mean Platelet Volume 10.6 fL (9.4-12.4); Platelet Count 268 K/mcL (140-400); Red Blood Count 3.53 M/mcL (4.19-5.50)
[2016-12-01 13:09] LABS: Calcium 8.6 mg/dL (8.6-10.8); Potassium 4.6 mEq/L (3.5-4.5)
[2016-12-01 18:12] LABS: Bilirubin,Urine Negative (Negative); Blood,Urine Large (Negative); Clarity,Urine Cloudy (Clear); Color,Urine Yellow (Yellow); Glucose,Urine (UA) Normal (Normal); Ketones,Urine Negative (Negative); Leukocyte Esterase,Urine Large (Negative); Nitrite,Urine Positive (Negative); Protein,Urine 100 mg/dL (Neg-Trace); Specific Gravity,Urine 1.015 (1.010-1.025); Urobilinogen,Urine Normal (Normal)
[2016-12-01 18:14] LABS: Bacteria,Urine None Seen per hpf (None-Few); Hyaline Casts,Urine None Seen per lpf (None-Few); RBC,Urine TNTC per hpf (0-3); Squamous Epithelial Cell,Urine Moderate per lpf (None-Few); WBC,Urine TNTC per hpf (0-3)
[2016-12-01] MEDS: Insulin DETEMIR 100 UNIT/ML X5UNITS SQ SCH (22:26)
[2016-12-02] MEDS: Gabapentin 100 MG CAPSULE PO SCH ×3 (06:23→23:39)
[2016-12-02 07:07] LABS: Hematocrit 27.8 % (37.5-50.1); Hemoglobin 8.4 g/dL (12.9-16.9); Mean Corpuscular HGB Conc 30.2 g/dL (31.6-35.5); Mean Corpuscular Volume 86.1 fL (83.0-100.0); Mean Platelet Volume 11.1 fL (9.4-12.4); Platelet Count 264 K/mcL (140-400); Red Blood Count 3.23 M/mcL (4.19-5.50); Red Cell Distribution Width 16.8 % (11.5-14.5)
[2016-12-02 07:30] LABS: Calcium 8.7 mg/dL (8.6-10.8); Potassium 4.3 mEq/L (3.5-4.5)
[2016-12-02] MEDS: Insulin LISPRO 300 UNITS/3 ML VIAL SQ SCH ×7 (08:51→21:14)
[2016-12-02] MEDS: Ascorbic Acid 500 MG TABLET PO SCH (08:53)
[2016-12-02] MEDS: amLODIPine 5 MG TABLET PO SCH (08:53)
[2016-12-02] MEDS: Pyridoxine (B-6) 50 MG TABLET PO SCH (08:54)
[2016-12-02] MEDS: Bicalutamide 50 MG TABLET PO SCH (08:54)
[2016-12-02] MEDS: Artificial Tears SOLN 15 ML BOTTLE BOTH EYES SCH ×4 (08:54→20:44)
[2016-12-02] MEDS: *HR* OxyCODONE Immed Rel 5 MG TABLET PO PRN ×2 (08:59→18:04)
--- NOTE | 2016-12-02 09:00 | Urology Progress Note ---
Date of Encounter: 12/02/16 Time of Encounter: 08:59 Progress Note Narrative: h/o metastatic prostate cancer with recent left nephrostomy tube internalized for a ureteral stent. Patient's creatinine has worsened over the past day. Objective Initial Vital Signs Temp Pulse Resp BP Pulse Ox 98.2 F 95 18 107/69 98 11/17/16 17:50 11/17/16 17:50 11/17/16 17:50 11/17/16 17:50 11/17/16 17:50 - General physical appearance Present: well developed - Abdomen Present: soft - Labs 12/02/16 06:21 12/02/16 06:21 Diabetes panel 12/01/16 12/02/16 Range/Units 12:48 06:21 Sodium 140 139 (136-145) mEq/L Potassium 4.6 H 4.3 (3.5-4.5) mEq/L Chloride 105 103 (98-109) mEq/L Carbon Dioxide 24 26 (19-29) mEq/L BUN 38 H 39 H (8-26) mg/dL Creatinine 1.59 H 1.84 H (0.72-1.25) mg/dL Glucose 110 H 125 H (70-99) mg/dL Calcium 8.6 8.7 (8.6-10.8) mg/dL Calcium panel 12/01/16 12/02/16 Range/Units 12:48 06:21 Calcium 8.6 8.7 (8.6-10.8) mg/dL Pituitary panel 12/01/16 12/02/16 Range/Units 12:48 06:21 Sodium 140 139 (136-145) mEq/L Potassium 4.6 H 4.3 (3.5-4.5) mEq/L Chloride 105 103 (98-109) mEq/L Carbon Dioxide 24 26 (19-29) mEq/L BUN 38 H 39 H (8-26) mg/dL Creatinine 1.59 H 1.84 H (0.72-1.25) mg/dL Glucose 110 H 125 H (70-99) mg/dL Calcium 8.6 8.7 (8.6-10.8) mg/dL Adrenal panel 12/01/16 12/02/16 Range/Units 12:48 06:21 Sodium 140 139 (136-145) mEq/L Potassium 4.6 H 4.3 (3.5-4.5) mEq/L Chloride 105 103 (98-109) mEq/L Carbon Dioxide 24 26 (19-29) mEq/L BUN 38 H 39 H (8-26) mg/dL Creatinine 1.59 H 1.84 H (0.72-1.25) mg/dL Glucose 110 H 125 H (70-99) mg/dL Calcium 8.6 8.7 (8.6-10.8) mg/dL - VTE Documentation of Mechanical Device: Intermittent pneumatic compression device Consult Discharge Plan - Plan Referrals: Monserrat Marcus MD [Partnered Physician] - Mars Ledezma MD [Partnered Physician] - (Follow up one week after discharge.) [facility] [Primary Care Provider] - 12/05/16 9:15 am Prescriptions: OxyCODONE Immed Rel [Roxicodone 5 MG] 5 mg PO Q6HR PRN #28 tablet PRN Reason: Moderate Pain (4-6) Amlodipine [Norvasc] 5 mg PO DAILY #30 tablet Sertraline [Zoloft] 50 mg PO QAM #30 tablet
--- NOTE | 2016-12-02 09:44 | Event Note ---
Date of Encounter: 12/02/16 Time of Encounter: 09:43 Please attach this note to progress note dated and timed very similar. I could not access the assessment and plan section. Patient assessment of prostate cancer with rising serum creatinine. We will need to repeat serum creatinine tomorrow if patient's creatinine continues to worsen and will need to repeat CT scan to evaluate for left ureteral stent failure as well as right renal system hydronephrosis.
--- NOTE | 2016-12-02 10:56 | Internal Med Progress Note ---
<Virginia Tinoco - Last Filed: 12/02/16 15:02> Date of Encounter: 12/02/16 Time of Encounter: 10:30 - Assessment and plan (1) Bladder outlet obstruction Current Visit: Yes Status: Acute Assessment and plan: Urology is following. s/p antegrade stent placement with removal of nephrostomy tube by IR. Per urology, follow up with Dr. Cedillo outpatient. 3/ patient continues to have hematuria after stent placement yesterday. plan for urinalysis later today and tomorrow morning. 3/ patient's Cr continuing to worsen. urinalysis from yesterday showed large amount of RBCs. Per urology, if patient's Cr continues to worsen, will get repeta CT scan tomorrow to evaluate left ureteral stent failure, as well as evaluating for possible right hydronephrosis. (2) UTI (urinary tract infection) Current Visit: Yes Status: Acute Assessment and plan: Ceftriaxone day 2 Qualifiers: Urinary tract infection type: site unspecified Hematuria presence: with hematuria Qualified Code(s): N39.0 - Urinary tract infection, site not specified; R31.9 - Hematuria, unspecified (3) Symptomatic anemia Current Visit: Yes Status: Acute Assessment and plan: patient had an episode of confusion that subsided. CT head was negative for any acute intracranial abnormality. Stool occult blood pending. Patient had one unit transfused yesterday, Hg now stable at 8.2 (4) Acute kidney injury superimposed on CKD Current Visit: Yes Status: Resolved Assessment and plan: Abdomen/Pelvic CT done shows s/p Left percutaneous nephrostomy catheter placement with intermediate attenuation within the left ureter compatible with hemorrhage along with left perinephric edema. Other chronic findings of retroperitoneal nodes are stable Continue to follow GEORGE on CKD III, Cr today was 1.84, wosening. 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 nephrostomy tube placed 11/21, removed on 11/29 HB stable today at 8.4 (5) COPD (chronic obstructive pulmonary disease) Current Visit: Yes Status: Chronic Assessment and plan: Stable, continue home med and nebulizer PRN. Qualifiers: COPD type: emphysema Emphysema type: other Qualified Code(s): J43.8 - Other emphysema (6) Depression Current Visit: Yes Status: Chronic Assessment and plan: Patient is already on Zoloft Psych has evaluated. No suicidal ideation. no acute psychiatric issues to address at this time. zoloft dose decreased to 50 due to increased risk of bleeding. Qualifiers: Depression Type: unspecified Qualified Code(s): F32.9 - Major depressive disorder, single episode, unspecified (7) Cancer associated pain Current Visit: Yes Status: Chronic Assessment and plan: Continue current pain management with oxycodone PRN palliative input appreciated (8) Diabetes Current Visit: Yes Status: Acute Assessment and plan: A1C 5.6, sugars well controlled at this time. Continue basal and medium dose sliding scale insulin, monitor closely. Qualifiers: Diabetes mellitus type: type 2 Diabetes mellitus complication status: with kidney complications Diabetes mellitus complication detail: with chronic kidney disease Diabetes mellitus mcc insulin use: with ferry terminal agent use Chronic kidney disease stage: stage 3 (moderate) Qualified Code(s): E11.22 - Type 2 diabetes mellitus with diabetic chronic kidney disease; N18.3 - Chronic kidney disease, stage 3 (moderate); Z79.4 - buttermaker continuous churn (current) use of insulin (9) Hyperkalemia Current Visit: Yes Status: Resolved Assessment and plan: K today was 4.3 continue to monitor. (10) Chronic a-fib Current Visit: Yes Status: Chronic Assessment and plan: Rate controlled. Pt was on eliquis, continue to hold due to hematuria. (11) Congestive heart failure Current Visit: Yes Status: Chronic Assessment and plan: last echo from 10/18/15 showed LVEF 55%, moderate concentric LVH, atypical septal motion, indeterminate diastolic function. no aortic regurg, no significant aortic stenosis. No signs of exacerbation. 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 He denies nausea, vomiting, diarrhea, fever, chills, shortness of breath, dizziness. Patient seems anxious to go home , and is worried about his prognosis. - Constitutional Vitals: Temp Pulse Resp BP Pulse Ox 98.7 F 84 22 128/86 97 12/02/16 03:35 12/02/16 03:35 12/02/16 03:35 12/02/16 03:35 12/02/16 03:35 General appearance: Present: A&O X 3, morbidly obese, answers questions appropriately - Head Head exam: Present: atraumatic, normocephalic - Eye Additional comments: right eye has been removed. - ENT ENT exam: Present: mucous membranes moist - Neck Neck exam general surgery: Present: supple, trachea midline - Respiratory Additional comments: right lower lobe rales - Cardiovascular Cardiovascular exam: Present: irregular rhythm Additional comments: scars present on anterior chest from prior surgery. - GI/Abdominal GI/Abdominal exam: Present: distended, normal bowel sounds, soft Additional comments: obese - Extremities Exam Additional comments: no cyanosis, edema, or clubbing present. - Back Exam Additional comments: large lipoma present on right upper thoracic back. - Neurological Exam Neurological exam: Present: alert, oriented X3, no focal deficits - Psychiatric Psychiatric exam: Present: anxious, depressed Internal Medicine: Result - Labs CBC & Chem 7: 12/02/16 06:21 12/02/16 06:21 Labs: Short CBC 12/01/16 12/02/16 Range/Units 12:48 06:21 WBC 18.0 H D 14.6 H (4.3-11.1) K/mcL Hgb 9.1 L 8.4 L (12.9-16.9) g/dL Hct 30.0 L 27.8 L (37.5-50.1) % Plt Count 268 264 (140-400) K/mcL BMP 12/01/16 12/02/16 12:48 06:21 Sodium 140 139 Potassium 4.6 H 4.3 Chloride 105 103 Carbon Dioxide 24 26 BUN 38 H 39 H Creatinine 1.59 H 1.84 H Glucose 110 H 125 H Calcium 8.6 8.7 Urine 12/01/16 Range/Units 17:58 Urine Color Yellow (Yellow) Urine Clarity Cloudy A (Clear) Urine pH 6.0 (5.0-8.0) pH Units Ur Specific [place] 1.015 (1.010-1.025) Urine Protein 100 H (Neg-Trace) mg/dL Urine Glucose (UA) Normal (Normal) mg/dL - ABG Interpretation ABG results: PT/INR, D-dimer PT 12.9 Seconds (9.4-12.1) H 11/27/16 06:09 - VTE Documentation of Mechanical Device: Intermittent pneumatic compression device Consult Discharge Plan - Plan Referrals: Monserrat Marcus MD [Partnered Physician] - Mars Ledezma MD [Partnered Physician] - (Follow up one week after discharge.) [facility] [Primary Care Provider] - 12/05/16 9:15 am Prescriptions: OxyCODONE Immed Rel [Roxicodone 5 MG] 5 mg PO Q6HR PRN #28 tablet PRN Reason: Moderate Pain (4-6) Amlodipine [Norvasc] 5 mg PO DAILY #30 tablet Sertraline [Zoloft] 50 mg PO QAM #30 tablet <Elkin Chavez H - Last Filed: 12/02/16 15:03> - Constitutional Vitals: Temp Pulse Resp BP Pulse Ox 98.7 F 84 22 128/86 97 12/02/16 03:35 12/02/16 03:35 12/02/16 03:35 12/02/16 03:35 12/02/16 03:35 Internal Medicine: Result - Labs CBC & Chem 7: 12/02/16 06:21 12/02/16 06:21 Labs: Short CBC 12/02/16 Range/Units 06:21 WBC 14.6 H (4.3-11.1) K/mcL Hgb 8.4 L (12.9-16.9) g/dL Hct 27.8 L (37.5-50.1) % Plt Count 264 (140-400) K/mcL BMP 12/02/16 06:21 Sodium 139 Potassium 4.3 Chloride 103 Carbon Dioxide 26 BUN 39 H Creatinine 1.84 H Glucose 125 H Calcium 8.7 Urine 12/01/16 Range/Units 17:58 Urine Color Yellow (Yellow) Urine Clarity Cloudy A (Clear) Urine pH 6.0 (5.0-8.0) pH Units Ur Specific [place] 1.015 (1.010-1.025) Urine Protein 100 H (Neg-Trace) mg/dL Urine Glucose (UA) Normal (Normal) mg/dL - ABG Interpretation ABG results: PT/INR, D-dimer PT 12.9 Seconds (9.4-12.1) H 11/27/16 06:09 - Attending Attestation Acute on chronic renal failure Hold allopurinol, urology recommending to do a CT scan of the abdomen if his creatinine worsens in the morning I examined this patient and my medical decision-making was reviewed with the ENGINE MECHANIC/PA/Advanced Practice Nurse/Resident Physician. I agree with the documented findings, disposition and treatment plan as described except to the extent set forth below.
[2016-12-02] MEDS: Insulin DETEMIR 100 UNIT/ML X5UNITS SQ SCH (20:45)
[2016-12-03] MEDS: *HR* OxyCODONE Immed Rel 5 MG TABLET PO PRN (00:12)
[2016-12-03] MEDS: Gabapentin 100 MG CAPSULE PO SCH ×2 (07:34→15:03)
[2016-12-03 07:50] LABS: Basophils % 0.3 %; Eosinophils % 1.3 %; Nucleated Red Blood Cells 0.1 /100 WBC (0)
[2016-12-03 07:52] LABS: Basophils # 0.1 K/mcL (0.0-0.2); Eosinophils # 0.2 K/mcL (0.0-0.6); Hematocrit 28.1 % (37.5-50.1); Hemoglobin 8.5 g/dL (12.9-16.9); Immature Granulocytes % 0.5 % (0-4); Lymphocytes # 0.8 K/mcL (0.6-4.6); Mean Corpuscular HGB Conc 30.2 g/dL (31.6-35.5); Mean Corpuscular Hemoglobin 26.5 pg (28.0-33.3); Mean Corpuscular Volume 87.5 fL (83.0-100.0); Mean Platelet Volume 11.3 fL (9.4-12.4); Monocytes # 1.3 K/mcL (0.0-1.3); Monocytes % 8.6 %; Neutrophils # 13.1 K/mcL (1.6-8.9); Platelet Count 259 K/mcL (140-400); Red Blood Count 3.21 M/mcL (4.19-5.50); Red Cell Distribution Width 16.5 % (11.5-14.5); Segmented Neutrophils % 84.3 %
[2016-12-03] MEDS: Insulin LISPRO 300 UNITS/3 ML VIAL SQ SCH ×6 (07:56→16:54)
[2016-12-03] MEDS: Pyridoxine (B-6) 50 MG TABLET PO SCH (07:57)
[2016-12-03] MEDS: Ascorbic Acid 500 MG TABLET PO SCH (07:58)
[2016-12-03] MEDS: amLODIPine 5 MG TABLET PO SCH (07:58)
[2016-12-03] MEDS: Artificial Tears SOLN 15 ML BOTTLE BOTH EYES SCH ×3 (07:59→16:53)
[2016-12-03 08:02] LABS: Calcium 8.8 mg/dL (8.6-10.8); Potassium 4.9 mEq/L (3.5-4.5)
--- NOTE | 2016-12-03 08:04 | Internal Med Progress Note ---
<Virginia Tinoco - Last Filed: 12/03/16 09:31> Date of Encounter: 12/03/16 Time of Encounter: 08:00 - Assessment and plan (1) Sepsis Current Visit: Yes Status: Acute Assessment and plan: Tmax overnight was 100.2 Patient has tachycardia and elevated WBC at 15.5 Upon examination, patient had abdominal breathing, difficult to arouse, and had some confusion. CT A/P pending. CXR showed bilateral lower lobe opacities, worse on the right lower lobe. Concern for pleural effusions, but cannot rule out HCAP. Antibiotics: Patient received 3 days ceftriaxone, now on Levaquin and Cefepime. Stat respiratory infection panel, ABG, EKG, lactate pending. Blood cultures x2 and urine culture pending. Source of infection likely UTI vs. respiratory vs. abdominal. Qualifiers: Sepsis type: sepsis due to unspecified organism Qualified Code(s): A41.9 - Sepsis, unspecified organism (2) Bladder outlet obstruction Current Visit: Yes Status: Acute Assessment and plan: Urology is following. s/p antegrade stent placement with removal of nephrostomy tube by IR. Per urology, follow up with Dr. Cedillo outpatient. 3/2 patient continues to have hematuria after stent placement yesterday. plan for urinalysis later today and tomorrow morning. 3/4 patient's Cr continuing to worsen. urinalysis from yesterday showed large amount of RBCs. Per urology, if patient's Cr continues to worsen, will get repeta CT scan tomorrow to evaluate left ureteral stent failure, as well as evaluating for possible right hydronephrosis. 3/5: CT A/P pending to ensure proper left ureteral stent placement. Cr has gone up today at 1.9. This will also give us a possible source of infection. continue to hold allopurinol due to worsening renal function. Per urology, if Cr continues to rise, then will consider bilateral nephrostomy tubes. (3) UTI (urinary tract infection) Current Visit: Yes Status: Acute Assessment and plan: Ceftriaxone day 3 Qualifiers: Urinary tract infection type: site unspecified Hematuria presence: with hematuria Qualified Code(s): N39.0 - Urinary tract infection, site not specified; R31.9 - Hematuria, unspecified (4) Symptomatic anemia Current Visit: Yes Status: Acute Assessment and plan: patient had an episode of confusion that subsided. CT head was negative for any acute intracranial abnormality. Stool occult blood pending. Hg continuing to remain stable, but patient has hematuria. (5) Acute kidney injury superimposed on CKD Current Visit: Yes Status: Resolved Assessment and plan: Abdomen/Pelvic CT done shows s/p Left percutaneous nephrostomy catheter placement with intermediate attenuation within the left ureter compatible with hemorrhage along with left perinephric edema. Other chronic findings of retroperitoneal nodes are stable Continue to follow GEORGE on CKD III, Cr today was 1.9, wosening. 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 nephrostomy tube placed 11/21, removed on 11/29 Hg stable today at 8.5 3: have ordered CT abdomen/pelvis to ensure proper left ureteral stent placement. continue to hold Allopurinol. (6) COPD (chronic obstructive pulmonary disease) Current Visit: Yes Status: Chronic Assessment and plan: Stable, continue home med and nebulizer PRN. Qualifiers: COPD type: emphysema Emphysema type: other Qualified Code(s): J43.8 - Other emphysema (7) Depression Current Visit: Yes Status: Chronic Assessment and plan: Patient is already on Zoloft Psych has evaluated. No suicidal ideation. no acute psychiatric issues to address at this time. zoloft dose decreased to 50 due to increased risk of bleeding. Qualifiers: Depression Type: unspecified Qualified Code(s): F32.9 - Major depressive disorder, single episode, unspecified (8) Cancer associated pain Current Visit: Yes Status: Chronic Assessment and plan: Continue current pain management with oxycodone PRN palliative input appreciated (9) Diabetes Current Visit: Yes Status: Acute Assessment and plan: A1C 5.6, sugars well controlled at this time. Continue basal and medium dose sliding scale insulin, monitor closely. Qualifiers: Diabetes mellitus type: type 2 Diabetes mellitus complication status: with kidney complications Diabetes mellitus complication detail: with chronic kidney disease Diabetes mellitus skilled nursing insulin use: with intermodal customer service use Chronic kidney disease stage: stage 3 (moderate) Qualified Code(s): E11.22 - Type 2 diabetes mellitus with diabetic chronic kidney disease; N18.3 - Chronic kidney disease, stage 3 (moderate); Z79.4 - MCC (current) use of insulin (10) Hyperkalemia Current Visit: Yes Status: Resolved Assessment and plan: K today was 4.9 continue to monitor. (11) Chronic a-fib Current Visit: Yes Status: Chronic Assessment and plan: patient had mild tachycardia this morning. Pt was on eliquis, continue to hold due to hematuria. Have added PRN lopressor IV for sustained HR>130 (12) Congestive heart failure Current Visit: Yes Status: Chronic Assessment and plan: last echo from 10/18/15 showed LVEF 55%, moderate concentric LVH, atypical septal motion, indeterminate diastolic function. no aortic regurg, no significant aortic stenosis. No signs of exacerbation. 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 Last night, patient had a Tmax of 100.2. He is alert and oriented x3 today, but appears to have abdominal breathing, and relatively difficult to arouse. - Constitutional Vitals: Temp Pulse Resp BP Pulse Ox 98.2 F 90 20 131/84 94 L 12/03/16 07:54 12/03/16 07:54 12/03/16 07:54 12/03/16 07:54 12/03/16 07:54 General appearance: Present: mild distress, A&O X 3, morbidly obese, answers questions appropriately - Head Head exam: Present: atraumatic, normocephalic - Eye Additional comments: right eye has been removed. - Neck Neck exam general surgery: Present: supple, trachea midline - Respiratory Respiratory exam: Present: rales Additional comments: lower lobe crackles present bilaterally. - Cardiovascular Cardiovascular exam: Present: irregular rhythm, tachycardia Additional comments: anterior scars present on chest from prior surgery. - GI/Abdominal GI/Abdominal exam: Present: distended, normal bowel sounds, soft. Absent: tenderness - Extremities Exam Extremities exam: Absent: cyanotic, pedal edema Additional comments: mild lower extremity edema bilaterally. - Neurological Exam Neurological exam: Present: alert, oriented X3 - Psychiatric Psychiatric exam: Present: anxious, depressed Internal Medicine: Result - Labs CBC & Chem 7: 12/03/16 06:50 12/03/16 06:50 - ABG Interpretation ABG results: PT/INR, D-dimer PT 12.9 Seconds (9.4-12.1) H 11/27/16 06:09 - VTE Documentation of Mechanical Device: Intermittent pneumatic compression device Consult Discharge Plan - Plan Referrals: Monserrat Marcus MD [Partnered Physician] - Mars Ledezma MD [Partnered Physician] - (Follow up one week after discharge.) [place],PCP [Primary Care Provider] - 12/05/16 9:15 am Prescriptions: OxyCODONE Immed Rel [Roxicodone 5 MG] 5 mg PO Q6HR PRN #28 tablet PRN Reason: Moderate Pain (4-6) Amlodipine [Norvasc] 5 mg PO DAILY #30 tablet Sertraline [Zoloft] 50 mg PO QAM #30 tablet <Elkin Chavez H - Last Filed: 12/03/16 09:44> - Constitutional Vitals: Temp Pulse Resp BP Pulse Ox 98.2 F 90 20 131/84 94 L 12/03/16 07:54 12/03/16 07:54 12/03/16 07:54 12/03/16 07:54 12/03/16 08:59 Internal Medicine: Result - Labs CBC & Chem 7: 12/03/16 06:50 12/03/16 06:50 Labs: Short CBC 12/03/16 Range/Units 06:50 WBC 15.5 H (4.3-11.1) K/mcL Hgb 8.5 L (12.9-16.9) g/dL Hct 28.1 L (37.5-50.1) % Plt Count 259 (140-400) K/mcL Neutrophils # 13.1 H (1.6-8.9) K/mcL BMP 12/03/16 06:50 Sodium 138 Potassium 4.9 H Chloride 101 Carbon Dioxide 26 BUN 44 H Creatinine 1.90 H Glucose 115 H Calcium 8.8 - ABG Interpretation ABG results: PT/INR, D-dimer PT 12.9 Seconds (9.4-12.1) H 11/27/16 06:09 - Impressions Impressions Chest X-Ray 12/03/16 07:54 IMPRESSION: Linear atelectasis at the left lung base. Otherwise no acute abnormality. D/ / Arron Pérez MD / Arron Pérez MD Interpreting Provider: Arron Pérez MD - Attending Attestation Sepsis secondary to urinary tract infection, consider possible gram-negative pneumonia Stop ceftriaxone, start Levaquin and cefepime, consider adding gentamicin is not responding Since urine culture CT scan of the abdomen and pelvis pending, urology to decide on possible nephrostomy tubes in the morning bilaterally due to obstruction/prostate cancer Keep BiPAP on, ABG pending, consider sending the patient to [facility] I examined this patient and my medical decision-making was reviewed with the FINANCIAL QUANTITATIVE ANALYST/PA/Advanced Practice Nurse/Resident Physician. I agree with the documented findings, disposition and treatment plan as described except to the extent set forth below.
[2016-12-03] MEDS ORDERED: *HR* Metoprolol 5 MG/5 ML VIAL IVP PRN (08:20)
[2016-12-03 08:27] LABS: Platelet Estimate Normal (Normal)
[2016-12-03 08:28] LABS: Hypochromasia Present (Not Present)
[2016-12-03 08:29] LABS: Schistocytes 1+ (Not Present)
[2016-12-03 08:36] LABS: Poikilocytosis 1+ (Not Present); Stomatocytes 1+ (Not Present)
--- NOTE | 2016-12-03 09:14 | Urology Progress Note ---
Date of Encounter: 12/03/16 Time of Encounter: 09:11 - Assessment and Plan (1) Hydronephrosis Current Visit: Yes Status: Acute Assessment and plan: if creatinine continues to rise then will need to consider bilateral nephrostomy tubes. will watch closely Qualifiers: Hydronephrosis type: unspecified Qualified Code(s): N13.30 - Unspecified hydronephrosis (2) Prostate cancer Current Visit: No Status: Acute Assessment and plan: likely causing hydronephrosis. stents can commonly fail with external compression from cancer. Progress Note Narrative: patient feeling worse this am. Ct showed some left hydro. creatinine rising. Objective Initial Vital Signs Temp Pulse Resp BP Pulse Ox 98.2 F 95 18 107/69 98 11/17/16 17:50 11/17/16 17:50 11/17/16 17:50 11/17/16 17:50 11/17/16 17:50 - General physical appearance Present: well developed, moderate distress - Abdomen Present: soft - Labs 12/03/16 06:50 12/03/16 06:50 Diabetes panel 12/03/16 Range/Units 06:50 Sodium 138 (136-145) mEq/L Potassium 4.9 H (3.5-4.5) mEq/L Chloride 101 (98-109) mEq/L Carbon Dioxide 26 (19-29) mEq/L BUN 44 H (8-26) mg/dL Creatinine 1.90 H (0.72-1.25) mg/dL Glucose 115 H (70-99) mg/dL Calcium 8.8 (8.6-10.8) mg/dL Calcium panel 12/03/16 Range/Units 06:50 Calcium 8.8 (8.6-10.8) mg/dL Pituitary panel 12/03/16 Range/Units 06:50 Sodium 138 (136-145) mEq/L Potassium 4.9 H (3.5-4.5) mEq/L Chloride 101 (98-109) mEq/L Carbon Dioxide 26 (19-29) mEq/L BUN 44 H (8-26) mg/dL Creatinine 1.90 H (0.72-1.25) mg/dL Glucose 115 H (70-99) mg/dL Calcium 8.8 (8.6-10.8) mg/dL Adrenal panel 12/03/16 Range/Units 06:50 Sodium 138 (136-145) mEq/L Potassium 4.9 H (3.5-4.5) mEq/L Chloride 101 (98-109) mEq/L Carbon Dioxide 26 (19-29) mEq/L BUN 44 H (8-26) mg/dL Creatinine 1.90 H (0.72-1.25) mg/dL Glucose 115 H (70-99) mg/dL Calcium 8.8 (8.6-10.8) mg/dL - VTE Documentation of Mechanical Device: Intermittent pneumatic compression device Consult Discharge Plan - Plan Referrals: Monserrat Marcus MD [Partnered Physician] - Mars Ledezma MD [Partnered Physician] - (Follow up one week after discharge.) [facility],PCP [Primary Care Provider] - 12/05/16 9:15 am Prescriptions: OxyCODONE Immed Rel [Roxicodone 5 MG] 5 mg PO Q6HR PRN #28 tablet PRN Reason: Moderate Pain (4-6) Amlodipine [Norvasc] 5 mg PO DAILY #30 tablet Sertraline [Zoloft] 50 mg PO QAM #30 tablet
[2016-12-03 09:52] LABS: Bilirubin,Urine Negative (Negative); Blood,Urine Large (Negative); Clarity,Urine Turbid (Clear); Color,Urine Dark Yellow (Yellow); Glucose,Urine (UA) Normal (Normal); Ketones,Urine Negative (Negative); Leukocyte Esterase,Urine Large (Negative); Nitrite,Urine Negative (Negative); Protein,Urine 100 mg/dL (Neg-Trace); Specific Gravity,Urine 1.017 (1.010-1.025); Urobilinogen,Urine Normal (Normal)
[2016-12-03 09:54] LABS: Hyaline Casts,Urine None Seen per lpf (None-Few); Squamous Epithelial Cell,Urine Many per lpf (None-Few); WBC,Urine TNTC per hpf (0-3)
[2016-12-03] MEDS ORDERED: Cefepime HCl 1,000 MG in D5% in Water (Mini-Bag+) 100 ML IVPB SCH (10:00)
[2016-12-03] MEDS ORDERED: Levofloxacin 500 MG/100 ML 500 MG/100 ML BAG IVPB SCH (10:00)
[2016-12-03 10:04] LABS: Bacteria,Urine Many per hpf (None-Few)
[2016-12-03 11:08] LABS: ABG Base Excess 4.5 mEq/L (-2.0 to 3.0); ABG HCO3 32.8 mEQ/L (21-27); ABG Oxygen Saturation 98 % (95-98); ABG PH 7.26 pH Units (7.32-7.45); ABG PO2 120 mmHg (85-104)
[2016-12-03 11:10] LABS: ABG PCO2 73 mmHg (35-45); Blood Gas FiO2 60 %
[2016-12-03] MEDS ORDERED: Vancomycin 1,500 MG in D5% in Water 250 ML IVPB SCH (15:00)
[2016-12-03 16:02] LABS: ABG Base Excess 4.9 mEq/L (-2.0 to 3.0); ABG HCO3 33.1 mEQ/L (21-27); ABG Oxygen Saturation 72 % (95-98); ABG PH 7.27 pH Units (7.32-7.45); ABG TCO2 35.3 mEq/L (20-26)
[2016-12-03 16:03] LABS: ABG PCO2 72 mmHg (35-45)
[2016-12-03 16:04] LABS: ABG PO2 44 mmHg (85-104); Blood Gas FiO2 40 %
[2016-12-03 16:28] LABS: ABG Base Excess 3.9 mEq/L (-2.0 to 3.0); ABG HCO3 31.7 mEQ/L (21-27); ABG Oxygen Saturation 100 % (95-98); ABG PCO2 66 mmHg (35-45); ABG PH 7.29 pH Units (7.32-7.45); ABG PO2 256 mmHg (85-104); ABG TCO2 33.7 mEq/L (20-26); Blood Gas FiO2 100 %
[2016-12-03] MEDS ORDERED: methylPREDNISolone 125 MG/2 ML VIAL IVP ONE (16:47)
[2016-12-03 16:53] VITALS: BP 138/73
[2016-12-03] MEDS ORDERED: Aminoglycoside Consult 1 EACH MC ONE (18:44)
[2016-12-04] MEDS ORDERED: methylPREDNISolone 125 MG/2 ML VIAL IV SCH
--- NOTE | 2016-12-04 07:36 | Electrocardiograph Report ---
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
--- NOTE | 2016-12-04 16:55 | Electrocardiograph Report ---
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
== END 2016-12-03 18:45 | disposition other institution (70) | DRG 693 ==
LOC: EMEROO 17:22 → SUATTDRO 22:08 → 2NNU 22:08 → 2ANU 11-26 19:44
PROVIDERS: ADMIT Internal Medicine; ATTEND Internal Medicine

== ENCOUNTER 2016-12-20 19:22 | Inpatient (IN) ==
--- NOTE | 2016-12-20 20:28 | Emergency Department Note ---
Disposition Clinical Impression: Lower GI bleed, Respiratory distress Anemia Qualifiers: Anemia type: unspecified type Qualified Code(s): D64.9 - Anemia, unspecified Disposition: Admitted As Inpatient Condition: Fair Time of Disposition: 21:44 GI Bleed HPI - General Chief complaint: ED General Medical Stated complaint: needs transfusion Time Seen by Provider: 12/20/16 19:25 Source: patient, EMS Limitations: no limitations Nursing Notes Reviewed: Yes Vital Signs Reviewed: Yes (I will a is 3-year-old male) - History of Present Illness HPI Narrative: Patient presents emergency room from a [facility] facility for low hemoglobin. hemoglobin is typically between 8.5 and 9.5. The nursing facility had collected labs over the last 2 days and said that his hemoglobin went from 7.0-6.8. No known bleeding sites according to them. Denies any bloody stool or urine. Patient has been sleeping more often than normal. Was concerned and wanted him evaluated. Transportation completed by EMS without any complication. Pt Subjective Complaint: melena Onset (ago): day(s) Consistency: other Severity: moderate Improves with: nothing Worsens with: nothing Associated symptoms: Reports: none Treatments Prior to Arrival: none - Related Data Home Medications Medication Instructions Recorded Confirmed Acetaminophen [Tylenol] 325 mg PO BID PRN 10/17/15 12/20/16 Allopurinol [Zyloprim 300 MG] 300 mg PO DAILY 10/17/15 12/20/16 Ascorbic Acid [Vitamin C] 1,000 mg PO DAILY 10/17/15 12/20/16 Carboxymethylcellulos/Glycerin 1 drop OP QID 10/17/15 12/20/16 [Refresh Optive Eye Drops] Docusate Sodium [Colace] 100 mg PO BID 10/17/15 12/20/16 Insulin Glargine [Lantus] 14 unit SQ HS 10/17/15 12/20/16 Ipratropium/Albuterol Neb [Duoneb] 3 ml IH Q6H PRN 10/17/15 12/20/16 Modafinil [Provigil] 400 mg PO QAM 10/17/15 12/20/16 Multivitamin [Multivitamins] 1 tab PO QAM 10/17/15 12/20/16 Omeprazole [PriLOSEC] 40 mg PO DAILY 10/17/15 12/20/16 Saliva Stimulant [Biotene 5 spray PO BID 10/17/15 12/20/16 Moisturizing Rinse] Bicalutamide [Casodex] 50 mg PO DAILY 05/24/16 12/20/16 Capsaicin 0.025% [Trixaicin] 1 appl TP DAILY PRN 05/24/16 12/20/16 Pyridoxine HCl [Vitamin B-6] 100 mg PO DAILY 05/24/16 12/20/16 Gabapentin [Neurontin] 300 mg PO TID 11/17/16 12/20/16 Albuterol Sulfate [Proair Hfa] 1 puff IH Q6H PRN 12/20/16 12/20/16 Amino Acids/Protein Hydrolys 30 ml PO QAM 12/20/16 12/20/16 [Pro-Stat Awc Liquid Packet] Apixaban [Eliquis] 5 mg PO BID 12/20/16 12/20/16 Aspirin Enteric Coated [Aspirin EC] 81 mg PO DAILY 12/20/16 12/20/16 Atorvastatin [Lipitor] 40 mg PO HS 12/20/16 12/20/16 Benzocaine/Menthol [Cepacol Sore 1 lozenge PO Q6H PRN 12/20/16 12/20/16 Throat Lozenge] Calcium Carbonate [Calcium] 1,000 mg PO BID 12/20/16 12/20/16 Ferrous Gluconate 324 mg PO BID 12/20/16 12/20/16 Furosemide [Lasix] 80 mg PO QAM 12/20/16 12/20/16 Insulin LISPRO [HumaLOG] 2 - 12 units SQ ACHS 12/20/16 12/20/16 Lisinopril 2.5 mg PO BID 12/20/16 12/20/16 OxyCODONE Immed Rel [Roxicodone 5 5 mg PO Q4H PRN 12/20/16 12/20/16 MG] Tamsulosin [Flomax] 0.4 mg PO DAILY 12/20/16 12/20/16 U-Lactin 1 appl TP BID 12/20/16 12/20/16 Previous Rx's Medication Instructions Recorded Amlodipine [Norvasc] 5 mg PO DAILY #30 tablet 11/27/16 Sertraline [Zoloft] 50 mg PO QAM #30 tablet 11/30/16 Allergies Allergy/AdvReac Type Severity Reaction Status Date / Time IVP dye Allergy Vomiting Uncoded 10/17/15 06:47 All systems ED: reviewed and negative except as stated. Cardiovascular: Denies: chest pain, palpitations Respiratory: Denies: cough, dyspnea Gastrointestinal: Denies: abdominal pain, nausea, vomiting, diarrhea Genitourinary: Denies: dysuria, frequency Musculoskeletal: Denies: back pain Integumentary: Denies: rash Past Medical History - Past Medical History Attestation: Yes The following information was validated with the patient. Source: patient Medical history: Reports: arthritis, atrial fibrillation, cancer, CHF, COPD, coronary artery disease, CVA, diabetes, GERD, hyperlipidemia, hypertension, malignancy, myocardial infarction, osteoporosis, renal disease, valvular heart disease, other Surgical history: Reports: coronary bypass (CABG), heart valve replacement, other ( ) Psychiatric history: Reports: anxiety, depression, other - Social History Smoking Status: Never smoker Smokeless Tobacco Status: No Alcohol use: Reports: none Drug use: Reports: none Physical Exam - General Limitations: no limitations General appearance: alert, in no apparent distress - Chest Chest inspection: Present: normal inspection, symmetric chest wall rise. Absent : tenderness, rash - Respiratory Respiratory exam: Present: normal lung sounds bilaterally. Absent: respiratory distress, wheezes, stridor, accessory muscle use - Cardiovascular Cardiovascular exam: Present: regular rate, normal rhythm, normal heart sounds - Abdominal Exam Abdominal exam: Present: soft, Non-Tender. Absent: tenderness, distention, guarding, rebound, rigidity - Extremities Exam Extremities exam: Present: normal inspection, full ROM, normal capillary refill. Absent: tenderness, pedal edema - Neurological Exam Neurological exam: Present: alert, oriented X3, CN II-XII intact, normal gait - Psychiatric Psychiatric exam: Present: normal affect, normal mood - Skin Skin exam: Present: warm, dry, intact, normal color Course Course Narrative: Patient seen and examined on arrival. See history of present illness. 71-year- old male presents from [facility] facility for evaluation of anemia. He has been more somnolent over the last couple days. Patient has baseline anemia based on his review of charts and previous laboratory draws. He usually is around 8.5. According to the senior living transportation note as well as a conversation I had with the nurse supervisor [employer] at that facility patient had a hemoglobin of 7.02 days ago they repeated it today and it was 6.8. He was scheduled for transfusion at their facility but they were concerned because they could not find a source the patient was becoming more somnolent. He is only benefit her facility for approximately 5 days. They recommended that he be sent on to the emergency room for evaluation. Vital signs on presentation are stable blood pressure is slightly low patient is mentating and answering questions. Conjunctivae are pale. Capillary refill is diminished. Patient has no acute signs of guarding rigidity to the abdomen lungs are clear heart is regular. Rectal examination completed and showing dark-colored stool is Hemoccult positive at bedside evaluation but official lab was sent down to the laboratory facility here at the hospital. Patient had CBC chemistry urinalysis for infectious etiology and Hemoccult testing performed. Open screen also added. Patient does not show any acute signs of unstable hemodynamics. Once laboratory results are back consultation be placed to the endoscopist further recommendations. He will need a GI evaluation at some point during this hospital course of care. We will let them determine transfusion status at this time. Patient is borderline at this point and could tolerate blood transfusion during hospital course of care. Patient stable resting comfortably in the bed. Disposition pending workup and treatment course - Reevaluation(s) Reevaluation #1: Patient found to have a hemoglobin of 6.6. 2 units of PRBCs ordered at this time from the emergency room. The on-call endoscopist Dr. Melo was contacted. He recommended hospitalist admission and transfusion process. He will be brought in on consult for possible EGD colonoscopy. No other recommendations from him at this time. Hospitalist page for admission process to be completed. Patient has been hemodynamically stable. We will continue to monitor down here and to admission and transitioned to the floor is completed Time: 21:44 Reevaluation #2: Discussed the patient with hospitalist Dr. Magana and he recommended CT imaging of the abdomen before he completed the admission. Patient is comfortable and resting in the bed at this time. BiPAP to be brought up secondary to complaint of shortness of breath. Repeat chest x-ray and EKG also ordered at this time. Infusion was stopped at this point it does not sound like an infusion reaction or flash pulmonary edema. Patient stable as to cover the bed. Admission process to be completed once imaging is resulted Time: 23:37 Reevaluation #3: Little CHF. Patient will be admitted to the hospital and CT imaging is resulted. Respiratory status is stable. He says that this happens when he does not get his BiPAP at night. Patient otherwise has no other acute issues. Transfusion will be restarted at this time. Patient stable resting comfortably in the bed. Will continue monitoring in the emergency room until the admission is completed to the ICU Time: 00:16 Vital Signs Temperature 98.8 F 12/20/16 19:24 Pulse Rate 98 12/20/16 19:24 Respiratory Rate 16 12/20/16 19:24 Blood Pressure 103/57 12/20/16 19:24 O2 Sat by Pulse Oximetry 98 12/20/16 19:24 Temperature 97.7 F 12/21/16 05:14 Pulse Rate 81 12/21/16 06:00 Respiratory Rate 20 12/21/16 06:00 Blood Pressure 123/80 12/21/16 06:00 O2 Sat by Pulse Oximetry 98 12/21/16 06:00 Oxygen Delivery Oxygen Delivery Nasal Cannula GI Bleed - MDM Narrative Medical decision making narrative: Anemia, GI bleed - Medical Records Medical records reviewed: Yes I reviewed the patient's medical records. - Lab Data Lab results reviewed: Yes I reviewed the patient's lab results. Result diagrams: 12/21/16 05:35 12/21/16 05:35 Lab Results 12/20/16 12/20/16 12/20/16 Range/Units 19:57 20:40 20:40 WBC 10.5 (4.3-11.1) K/mcL RBC 2.50 L (4.19-5.50) M/mcL Hgb 6.6 L (12.9-16.9) g/dL Hct 22.1 L (37.5-50.1) % MCV 88.4 (83.0-100.0) fL MCH 26.4 L (28.0-33.3) pg MCHC 29.9 L (31.6-35.5) g/dL RDW 17.4 H (11.5-14.5) % Plt Count 185 (140-400) K/mcL MPV 11.3 (9.4-12.4) fL Immature Gran % 0.5 (0-4) % Seg Neutrophils % 79.4 % Lymphocytes % 8.0 % Monocytes % 9.4 % Eosinophils % 2.5 % Basophils % 0.2 % Neutrophils # 8.3 (1.6-8.9) K/mcL Lymphocytes # 0.8 (0.6-4.6) K/mcL Monocytes # 1.0 (0.0-1.3) K/mcL Eosinophils # 0.3 (0.0-0.6) K/mcL Basophils # 0.0 (0.0-0.2) K/mcL Nucleated RBCs/100 WBC 0.2 H (0) /100 WBC Sodium 134 L (136-145) mEq/L Potassium 5.5 H (3.5-4.5) mEq/L Chloride 100 (98-109) mEq/L Carbon Dioxide 25 (19-29) mEq/L BUN 48 H (8-26) mg/dL Creatinine 2.54 H (0.72-1.25) mg/dL Est GFR ( Amer) 31 L (> 60) Est GFR (Non-Af Amer) 25 L (> 60) BUN/Creatinine Ratio 19 (6-26) Glucose 117 H (70-99) mg/dL Calculated Osmolality 292 (280-300) Calcium 8.2 L (8.6-10.8) mg/dL Stool Occult Blood Negative (Negative) Blood Type Antibody Screen Crossmatch 12/20/16 Range/Units 20:40 WBC (4.3-11.1) K/mcL RBC (4.19-5.50) M/mcL Hgb (12.9-16.9) g/dL Hct (37.5-50.1) % MCV (83.0-100.0) fL MCH (28.0-33.3) pg MCHC (31.6-35.5) g/dL RDW (11.5-14.5) % Plt Count (140-400) K/mcL MPV (9.4-12.4) fL Immature Gran % (0-4) % Seg Neutrophils % % Lymphocytes % % Monocytes % % Eosinophils % % Basophils % % Neutrophils # (1.6-8.9) K/mcL Lymphocytes # (0.6-4.6) K/mcL Monocytes # (0.0-1.3) K/mcL Eosinophils # (0.0-0.6) K/mcL Basophils # (0.0-0.2) K/mcL Nucleated RBCs/100 WBC (0) /100 WBC Sodium (136-145) mEq/L Potassium (3.5-4.5) mEq/L Chloride (98-109) mEq/L Carbon Dioxide (19-29) mEq/L BUN (8-26) mg/dL Creatinine (0.72-1.25) mg/dL Est GFR ( Amer) (> 60) Est GFR (Non-Af Amer) (> 60) BUN/Creatinine Ratio (6-26) Glucose (70-99) mg/dL Calculated Osmolality (280-300) Calcium (8.6-10.8) mg/dL Stool Occult Blood (Negative) Blood Type O POSITIVE Antibody Screen NEGATIVE Crossmatch See Detail - Radiology Data Radiology results reviewed: Yes I reviewed the patient's radiology results. - EKG Data EKG attestation: Yes I reviewed and interpreted this EKG. EKG shows normal: sinus rhythm, axis, intervals, QRS complexes, ST-T waves Rate: tachycardia Rhythm: NSR [place]/QRS: normal When compared to previous EKG there are: no significant changes Interpretation: no acute changes, unchanged when compared to prior tracing (date ) (12/03/16 aflutter on that evaluation he does not show any signs of that at this time) Critical Care Time Critical Care Time: Yes Total Critical Care Time: 35 Attestation: Independent of procedures and medical intervention
[2016-12-20 20:52] LABS: Basophils % 0.2 %; Eosinophils # 0.3 K/mcL (0.0-0.6); Eosinophils % 2.5 %; Hematocrit 22.1 % (37.5-50.1); Hemoglobin 6.6 g/dL (12.9-16.9); Immature Granulocytes % 0.5 % (0-4); Lymphocytes # 0.8 K/mcL (0.6-4.6); Mean Corpuscular HGB Conc 29.9 g/dL (31.6-35.5); Mean Corpuscular Hemoglobin 26.4 pg (28.0-33.3); Mean Corpuscular Volume 88.4 fL (83.0-100.0); Mean Platelet Volume 11.3 fL (9.4-12.4); Monocytes % 9.4 %; Neutrophils # 8.3 K/mcL (1.6-8.9); Nucleated Red Blood Cells 0.2 /100 WBC (0); Platelet Count 185 K/mcL (140-400); Red Cell Distribution Width 17.4 % (11.5-14.5); Segmented Neutrophils % 79.4 %
[2016-12-20 21:03] LABS: Calcium 8.2 mg/dL (8.6-10.8); Potassium 5.5 mEq/L (3.5-4.5)
[2016-12-20] MEDS ORDERED: 0.9 % Sodium Chloride 1,000 ML IVC SCH (21:15)
[2016-12-20] MEDS ORDERED: methylPREDNISolone 125 MG/2 ML VIAL IVP ONE (23:48)
[2016-12-21 04:07] LABS: ABG Base Excess -0.4 mEq/L (-2.0 to 3.0); ABG HCO3 27.2 mEQ/L (21-27); ABG Oxygen Saturation 93 % (95-98); ABG PCO2 62 mmHg (35-45); ABG PH 7.25 pH Units (7.32-7.45); ABG PO2 77 mmHg (85-104); ABG TCO2 29.1 mEq/L (20-26); Blood Gas FiO2 32 %
[2016-12-21] MEDS ORDERED: Naloxone 0.4 MG/ML INJ IVP PRN (04:51)
[2016-12-21] MEDS ORDERED: Acetaminophen 325 MG TABLET PO PRN (04:51)
[2016-12-21] MEDS ORDERED: Ondansetron 4 MG/2 ML VIAL IVP PRN (04:51)
--- NOTE | 2016-12-21 04:51 | Internal Med History&Physical ---
<Hardeep Malone - Last Filed: 12/21/16 05:26> Date of Encounter: 12/21/16 Time of Encounter: 03:45 Assessment and Plan (1) Acute encephalopathy Current visit: No Status: Resolved Patient has been showing acute encephalopathy, she remains alert and oriented but is difficult to arouse with verbal and physical stimuli (has not needed painful stimuli). He was having issues of somnolence at the [facility] where she resides and this was previously attributed to his symptomatic anemia. Given acute kidney injury, history of Pseudomonas infection less than 3 weeks ago, respiratory failure, and anemia is acute encephalopathy is likely multifactorial. Consults critical care for continued management of patient BiPAP placed Patient start on vancomycin and Zosyn Continue monitoring with telemetry and pulse oximetry (2) Acute respiratory failure with hypoxia and hypercapnia Current visit: No Status: Acute Patient showing signs of respiratory distress with abdominal breathing. No overt pneumonia seen on chest x-ray or bottom part of CT examination of the abdomen and pelvis. Decreased breath sounds auscultated bilaterally, patient has history of COPD and ABG showed respiratory acidosis. Although patient pH was lowered, was not usually below his previous documented ABGs, and PCO2 was better than most prior seen on ABG. Age and has scheduled DuoNeb's Placed on BiPAP ABG ordered for 6 AM (3) Anemia Current visit: Yes Status: Acute Patient has chronic anemia with hemoglobin at 8.5-9 (CKD), presented to [facility] from detention with hemoglobin of 6.6 and complaining of symptoms of fatigue and somnolence. Rectal examination showed dark colored stool and was Hemoccult positive, raising the suspicion for gastrointestinal bleeding. Patient only received half of first unit of blood due to timeliness of administration 2 additional units pRBCs ordered Hemoglobin and hematocrit following transfusion Hold patient home Eliquis Qualifiers: Anemia type: unspecified type Qualified Code(s): D64.9 - Anemia, unspecified (4) Acute kidney injury superimposed on CKD Current visit: No Status: Resolved Patient has extensive medical history involving his urinary tract with metastases from his prostate cancer causing external compression on his ureters , bleeding to the prior need for nephrostomy tubes and ureteral stents. Patient also has underlying chronic kidney disease stage III. Ramos catheter successfully placed in the ICU, minimal blood from urethral meatus following placement of Ramos catheter. Patient acute kidney injury possibly due to occlusion of prior ureteral stent, decreased circulating volume with patient anemia We will hold further IV fluids due to concern for patient congestive heart failure CT examination of patient's abdomen did not show hydronephrosis or hydroureter, but consider retroperitoneal ultrasound for further evaluation if suspicion persists or if improvement patient acute kidney injury not seen (5) COPD (chronic obstructive pulmonary disease) Current visit: No Status: Chronic Patient uses albuterol at home for his COPD. He appears to be having some abdominal breathing. Will start patient on scheduled duo-nebs Qualifiers: COPD type: emphysema Emphysema type: other Qualified Code(s): J43.8 - Other emphysema (6) Atrial fibrillation Current visit: No Status: Inactive Patient has history of atrial fibrillation, on Eliquis at home. We will hold Eliquis due to concerns of anemia and possibility of bleeding Qualifiers: Atrial fibrillation type: unspecified Qualified Code(s): I48.91 - Unspecified atrial fibrillation (7) Hyperkalemia Current visit: No Status: Acute Patiently currently hyperkalemic at 5.5, patient has chronic issures with hyperkalemia. No acute ECG changes observed. Will continue to monitor with regular chemistry. (8) Diabetes Current visit: No Status: Acute We will hold patient oral hypoglycemic medications Start basal insulin with 20 units Levemir Medium dose sliding scale insulin every 6 hours Qualifiers: Diabetes mellitus type: type 2 Diabetes mellitus complication status: with kidney complications Diabetes mellitus complication detail: with chronic kidney disease Diabetes mellitus intermodal dispatcher insulin use: with care home use Chronic kidney disease stage: stage 3 (moderate) Qualified Code(s): E11.22 - Type 2 diabetes mellitus with diabetic chronic kidney disease; N18.3 - Chronic kidney disease, stage 3 (moderate); Z79.4 - penitentiary (current) use of insulin (9) DVT prophylaxis Current visit: No Status: Acute We will hold patient Eliquis due to current anemia and concern for bleeding We will start intermittent pneumatic compression devices (10) History of prostate cancer Current visit: No Status: Acute (11) Morbid obesity with BMI of 40.0-44.9, adult Current visit: No Status: Chronic (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 Blas is a 71 year old male with an extensive medical history including metastatic prostate cancer (this caused external compression of ureters leading to hydronephrosis), CHF (last echo 10/16 showed EF of 55%), insulin dependent diabetes mellitus, prior CVA, coronary artery disease (with prior CABG), chronic kidney disease stage III, hypertension, hyperlipidemia, valvular disease (with prior valve replacement) was brought to [facility] from the senior care facility which she resides due to concerns of development of symptomatic anemia. Patient normally has a hemoglobin around 8.5-9, the detention found during routine lab work the patient's hemoglobin had fallen to 7.0 2 days ago into 6.8 today. Patient was not having any overt bleeding, but was having some fatigue and somnolence concerning for symptom development with his anemia. She had been residing in the facility for a total of 5 days prior to this event, having recently been discharged from [facility] (after being transferred up there from [facility]). Patient has remained hemodynamically stable and rectal exam with Hemoccult was performed with emergency room that revealed dark-colored stool was Hemoccult positive. CT examination performed in the emergency room of the patient's abdomen revealed enlarging pulmonary nodule and stable retroperitoneal adenopathy. During his first blood transfusion he began developing some shortness of breath leading to patient's transfusion been stopped and restarted later. When seen the patient appeared to be having respiratory depressed with significant abdominal breathing pattern and increased amount of somnolence compared to reports of his demeanor. An ABG was obtained that showed possible respiratory acidosis with increased PCO2, but when compared to his old ABGs his CO2 is at its lowest level and PTH is only minorly below what happened previously. He was placed on BiPAP at that time and seemed to improve slightly. Past Med Surg Social Fam HX - Past Medical History Medical history: arthritis, atrial fibrillation, cancer, CHF, COPD, coronary artery disease, CVA, diabetes, GERD, hyperlipidemia, hypertension, malignancy, myocardial infarction, osteoporosis, renal disease, valvular heart disease, other Psychiatric history: anxiety, depression, other - Past Surgical History Surgical History: coronary bypass (CABG), heart valve replacement, other ( ) - Social History Smoking Status: Never smoker Smokeless Tobacco Status: No Alcohol use: none Drug use: none - Family History Father Living Status: Hx Family Cardiac Disorders: Yes Internal Medicine - H&P: Meds Acetaminophen [Tylenol] 325 mg PO BID PRN 10/17/15 [History] Allopurinol [Zyloprim 300 MG] 300 mg PO DAILY 10/17/15 [History] Ascorbic Acid [Vitamin C] 1,000 mg PO DAILY 10/17/15 [History] Carboxymethylcellulos/Glycerin [Refresh Optive Eye Drops] 1 drop OP QID [History] Docusate Sodium [Colace] 100 mg PO BID 10/17/15 [History] Insulin Glargine [Lantus] 14 unit SQ HS 10/17/15 [History] Ipratropium/Albuterol Neb [Duoneb] 3 ml IH Q6H PRN 10/17/15 [History] Modafinil [Provigil] 400 mg PO QAM 10/17/15 [History] Multivitamin [Multivitamins] 1 tab PO QAM 10/17/15 [History] Omeprazole [PriLOSEC] 40 mg PO DAILY 10/17/15 [History] Saliva Stimulant [Biotene Moisturizing Rinse] 5 spray PO BID 10/17/15 [History] Bicalutamide [Casodex] 50 mg PO DAILY 05/24/16 [History] Capsaicin 0.025% [Trixaicin] 1 appl TP DAILY PRN 05/24/16 [History] Pyridoxine HCl [Vitamin B-6] 100 mg PO DAILY 05/24/16 [History] Gabapentin [Neurontin] 300 mg PO TID 11/17/16 [History] Amlodipine [Norvasc] 5 mg PO DAILY #30 tablet 11/27/16 [Rx] Sertraline [Zoloft] 50 mg PO QAM #30 tablet 11/30/16 [Rx] Albuterol Sulfate [Proair Hfa] 1 puff IH Q6H PRN 12/20/16 [History] Amino Acids/Protein Hydrolys [Pro-Stat Awc Liquid Packet] 30 ml PO QAM 12/20/16 [History] Apixaban [Eliquis] 5 mg PO BID 12/20/16 [History] Aspirin Enteric Coated [Aspirin EC] 81 mg PO DAILY 12/20/16 [History] Atorvastatin [Lipitor] 40 mg PO HS 12/20/16 [History] Benzocaine/Menthol [Cepacol Sore Throat Lozenge] 1 lozenge PO Q6H PRN 12/20/16 [ History] Calcium Carbonate [Calcium] 1,000 mg PO BID 12/20/16 [History] Ferrous Gluconate 324 mg PO BID 12/20/16 [History] Furosemide [Lasix] 80 mg PO QAM 12/20/16 [History] Insulin LISPRO [HumaLOG] 2 - 12 units SQ ACHS 12/20/16 [History] Lisinopril 2.5 mg PO BID 12/20/16 [History] OxyCODONE Immed Rel [Roxicodone 5 MG] 5 mg PO Q4H PRN 12/20/16 [History] Tamsulosin [Flomax] 0.4 mg PO DAILY 12/20/16 [History] U-Lactin 1 appl TP BID 12/20/16 [History] Allergies IVP dye Allergy (Uncoded 10/17/15 06:47) Vomiting ROS unobtainable: due to mental status - Constitutional Constitutional: fatigue, weakness - Cardiovascular Cardiovascular ROS IM: no chest pain - Gastrointestinal Gastrointestinal: no abdominal pain - Constitutional Vitals: Temp Pulse Resp BP Pulse Ox 97.8 F 83 22 107/68 98 12/21/16 04:32 12/21/16 04:32 12/21/16 04:32 12/21/16 04:32 12/21/16 04:32 Exam: General: Responsive to physical stimuli, moderate distress, alert and oriented 3, answers questions appropriately Head: Normocephalic, atraumatic, Eye: Conjunctiva pink, sclera anicteric, patient only has left eye, pupil equal round react to light Neck: Supple, trachea midline, mucosa moist Respiratory: Patient using abdomen to assist breathing, decreased breath sounds bilaterally, difficult to auscultate given patient position and size Cardiovascular: Irregular rhythm GI/abdominal: Nondistended, nontender, soft, normal bowel sounds, no peritoneal signs, obese, protuberant abdomen Extremities: No calf tenderness, noncyanotic, 1-2+ pedal edema appreciated, warm , lower extremity pulses palpable and symmetrical Neurological: Alert and oriented 3, no facial droop, no focal deficits Skin: Dry, intact, normal color Internal Med - H&P Results - Labs CBC & Chem 7: 12/20/16 20:40 12/20/16 20:40 - ABG Interpretation Interpretation: ABG interpreted by az ABG results: 12/21/16 03:58 ABG pH 7.25 L ABG pCO2 62 H ABG pO2 77 L ABG HCO3 27.2 H ABG Total CO2 29.1 H ABG O2 Saturation 93 L ABG Base Excess -0.4 Interpretation: respiratory acidosis - Impressions ITS Impressions Impressions Chest X-Ray 12/20/16 19:42 IMPRESSION: Cardiomegaly with mild pulmonary edema suggesting stable CHF. Small bilateral stable pleural effusions. D/ / Mick Quinones MD / Mick Quinones MD Interpreting Provider: Mick Quinones MD Chest X-Ray 12/20/16 23:23 IMPRESSION: Stable bilateral airspace disease. D/ / Solis Martinez MD / Solis Martinez MD Interpreting Provider: Solis Martinez MD Abdomen/Pelvis CT 12/21/16 23:22 IMPRESSION: Enlarging middle lobe pulmonary nodule with grossly stable retroperitoneal and pelvic adenopathy. D/ / Solis Martinez MD / Solis Martinez MD Interpreting Provider: Solis Martinez MD <Gilson Magana - Last Filed: 12/21/16 06:53> Internal Medicine - H&P: HPI History of present illness: Mr. Blas is a 71 year old male All Systems PM: A 10-system review of systems was performed and is negative for pertinent findings except as documented above in the HPI. - Constitutional Vitals: Temp Pulse Resp BP Pulse Ox 97.7 F 81 20 123/80 98 12/21/16 05:14 12/21/16 06:00 12/21/16 06:00 12/21/16 06:00 12/21/16 06:00 Internal Med - H&P Results - Labs CBC & Chem 7: 12/21/16 05:35 12/21/16 05:35 Labs: Short CBC 12/21/16 Range/Units 05:35 WBC 10.1 (4.3-11.1) K/mcL Hgb 7.7 L (12.9-16.9) g/dL Hct 25.7 L (37.5-50.1) % Plt Count 191 (140-400) K/mcL Neutrophils # 9.6 H (1.6-8.9) K/mcL BMP 12/21/16 05:35 Sodium 135 L Potassium 5.6 H Chloride 104 Carbon Dioxide 21 BUN 49 H Creatinine 2.22 H Glucose 181 H Calcium 7.6 L Liver Function 12/21/16 Range/Units 05:35 Total Bilirubin 0.4 (0.2-1.2) mg/dL AST 18 (5-34) Units/L ALT 14 (0-55) Units/L Alkaline Phosphatase 143 H (38-126) Units/L Albumin 2.6 L (3.5-5.0) g/dL Urine 12/21/16 Range/Units 04:00 Urine Color Yellow (Yellow) Urine Clarity Cloudy A (Clear) Urine pH 6.0 (5.0-8.0) pH Units Ur Specific Alpha 1.011 (1.010-1.025) Urine Protein 100 H (Neg-Trace) mg/dL Urine Glucose (UA) Normal (Normal) mg/dL - ABG Interpretation ABG results: 12/21/16 03:58 ABG pH 7.25 L ABG pCO2 62 H ABG pO2 77 L ABG HCO3 27.2 H ABG Total CO2 29.1 H ABG O2 Saturation 93 L ABG Base Excess -0.4 - Impressions ITS Impressions Abdomen/Pelvis CT 12/21/16 23:22 IMPRESSION: Enlarging middle lobe pulmonary nodule with grossly stable retroperitoneal and pelvic adenopathy. D/ / Solis Martinez MD / Solis Martinez MD Interpreting Provider: Solis Martinez MD - Attending Attestation I examined this patient and my medical decision-making was reviewed with the SALES AND MARKETING COORDINATOR/PA/Advanced Practice Nurse/Resident Physician. I agree with the documented findings, disposition and treatment plan as described except to the extent set forth below. I discussed the case with Dr. Hardeep Malone. I examined the patient independently. Patient with severe symptomatic anemia, worsening mental status, likely multifactorial. Patient with history of A. fib on eliquis and evidence of GI bleeding. History of COPD, patient uses BiPAP at night. We will continue monitoring in the intensive care unit and give blood transfusions and monitor hemoglobin. Stop anticoagulation for now. DVT prophylaxis will be provided with compressive devices. Evaluation by our endoscopy team. Additionally, patient has evidence of CO2 retention and respiratory acidosis, currently on BiPAP. Patient comes to the hospital from a skilled nurse facility, possible UTI, cannot rule out underlying pneumonia. We will initiate broad-spectrum antibiotics with both vancomycin and Zosyn. Need to monitor levels of vancomycin. Follow cultures.
[2016-12-21 05:01] LABS: Bilirubin,Urine Negative (Negative); Blood,Urine Large (Negative); Clarity,Urine Cloudy (Clear); Color,Urine Yellow (Yellow); Glucose,Urine (UA) Normal (Normal); Ketones,Urine Negative (Negative); Leukocyte Esterase,Urine Large (Negative); Nitrite,Urine Negative (Negative); Protein,Urine 100 mg/dL (Neg-Trace); Specific Gravity,Urine 1.011 (1.010-1.025); Urobilinogen,Urine Normal (Normal)
[2016-12-21 05:04] LABS: Hyaline Casts,Urine None Seen per lpf (None-Few); Squamous Epithelial Cell,Urine Moderate per lpf (None-Few)
[2016-12-21] MEDS ORDERED: Dextrose Gel 15 GM PO PRN ×2 (05:09)
[2016-12-21] MEDS ORDERED: *HR* Dextrose 50 % in Water (Syg) 50 ML SYRINGE IVP PRN (05:09)
[2016-12-21 05:14] LABS: RBC,Urine 50-100 per hpf (0-3); WBC,Urine 30-50 per hpf (0-3)
[2016-12-21 05:15] LABS: Bacteria,Urine Many per hpf (None-Few)
[2016-12-21 05:49] LABS: Basophils % 0.1 %; Eosinophils % 0.1 %; Hematocrit 25.7 % (37.5-50.1); Hemoglobin 7.7 g/dL (12.9-16.9); Immature Granulocytes % 0.9 % (0-4); Lymphocytes # 0.3 K/mcL (0.6-4.6); Lymphocytes % 2.7 %; Mean Corpuscular Hemoglobin 25.8 pg (28.0-33.3); Mean Corpuscular Volume 86.2 fL (83.0-100.0); Mean Platelet Volume 11.3 fL (9.4-12.4); Monocytes # 0.1 K/mcL (0.0-1.3); Monocytes % 0.8 %; Neutrophils # 9.6 K/mcL (1.6-8.9); Platelet Count 191 K/mcL (140-400); Red Blood Count 2.98 M/mcL (4.19-5.50); Red Cell Distribution Width 16.9 % (11.5-14.5); Segmented Neutrophils % 95.4 %
[2016-12-21] MEDS ORDERED: Vancomycin 2,000 MG in D5% in Water 250 ML IVPB SCH (06:00)
[2016-12-21] MEDS ORDERED: Vancomycin 2,000 MG in D5% in Water 500 ML IVPB SCH (06:00)
[2016-12-21 06:06] LABS: Albumin 2.6 g/dL (3.5-5.0); Albumin/Globulin Ratio 0.7 (1.1-2.2); Bilirubin,Total 0.4 mg/dL (0.2-1.2); Calcium 7.6 mg/dL (8.6-10.8); Globulin 3.6 g/dL (2.4-3.5); Magnesium 1.2 mg/dL (1.6-2.6); Phosphorous 4.6 mg/dL (2.3-4.7); Potassium 5.6 mEq/L (3.5-4.5); Total Protein 6.2 g/dL (6.0-8.3)
[2016-12-21] MEDS: Insulin LISPRO 300 UNITS/3 ML VIAL SQ SCH ×4 (06:11→23:45)
[2016-12-21] MEDS ORDERED: Pantoprazole 40 MG VIAL IVP SCH (06:30)
[2016-12-21 06:52] LABS: ABG Base Excess -0.5 mEq/L (-2.0 to 3.0); ABG HCO3 27.6 mEQ/L (21-27); ABG Oxygen Saturation 95 % (95-98); ABG PCO2 66 mmHg (35-45); ABG PH 7.23 pH Units (7.32-7.45); ABG PO2 88 mmHg (85-104); ABG TCO2 29.6 mEq/L (20-26); Blood Gas FiO2 35 %
--- NOTE | 2016-12-21 07:02 | Emergency Department Note ---
START Narrative - START START: For this encounter, I have reviewed the resident, VIDEO TECHNICIAN, or PA documentation, treatment plan, and medical decision making; and I have had face to face time with this patient. 71-year-old male sent in from extended care facility with concerns of anemia. Patient is unable to give a history regarding his symptoms. Patient has brown stool which is significantly guaiac positive. Patient denies chest pain, shortness of breath, weakness, fever, vomiting, diarrhea. Patient takes Elavil us for anticoagulation for mechanical valve. Patient is anemic on repeat laboratory evaluation. Patient will be transfused packed red blood cells for improvement of anemia. Patient comfortable with the plan to be admitted for further care and evaluation. Patient became short of breath during his stay in the emergency department. Patient had received 10 mL of packed red blood cells however I do not believe that this is the cause of the patient's shortness of breath. I am further evaluation the patient states that he uses CPAP nightly otherwise he becomes short of breath. Patient states that shortness of breath tonight and feels similar to previous episodes shortness of breath.
[2016-12-21] MEDS ORDERED: Piperacillin/Tazobactam 3.375 GM in D5% in Water (Mini-Bag+) 100 ML IVPB SCH (08:00)
[2016-12-21] MEDS: Ipratropium/Albuterol Neb 3 ML IH SCH ×5 (08:14→23:49)
[2016-12-21] MEDS ORDERED: Magnesium Sulfate 2 GM in D5% in Water 100 ML IVPB ONE (08:36)
--- NOTE | 2016-12-21 08:41 | Pulmonology Consult Note ---
<Conrado Jane - Last Filed: 12/21/16 13:00> Date of Encounter: 12/21/16 Time of Encounter: 08:38 Assessment and Plan (1) Acute on chronic respiratory failure with hypoxia and hypercapnia Current Visit: Yes Status: Acute Likely multifactorial from symptomatic anemia, history of obstructive sleep apnea, COPD and obesity hypoventilation syndrome, chest x-ray showed chronic elevation of right hemidiaphragm and small bilateral stable pleural effusions, ABG showed respiratory acidosis with pH of 7.23, PCO2 of 66 and bicarbonate of 27.6, looking at the previous ABG, patient is likely chronic CO2 retainer from above mentioned co-morbidities. Patient is currently on a BiPAP satting 98% with a good tidal volume, but with his current mental status and co-morbidities , his respiratory status can deteriorate, will continue to closely monitor his respiratory status in ICU, will repeat ABG now. (2) Acute blood loss anemia Current Visit: Yes Status: Acute In recent hospitalization patient received 5 units of PRBC for acute blood loss anemia from left-sided nephrostomy tube, soon after tube was removed and stent was placed, this time unclear etiology of blood loss, abdominal CT scan without contrast showed enlarging middle lobe pulmonary nodule was grossly stable retroperitoneal and pelvic adenopathy, bedside Hemoccult test in the ER showed black stool and positive result, surgery was counsulted from the ER for possible endoscopy, currently patient is hemodynamically stable, status post 2 units of PRBC transfusion, hemoglobin increased from 6.6 to 7.7 after 1 unit of transfusion, continue to closely monitor his hemoglobin. (3) Acute encephalopathy Current Visit: Yes Status: Acute In the previous hospitalization with acute blood loss anemia, during that time patient also had occasional change in mental status and confusion, this time it is likely due to hypercarbia from respiratory acidosis and symptomatic anemia, patient is not septic and unlikely it is due to infectious etiology, urine culture is pending at this time, patient is currently on a BiPAP and receiving PRBC transfusion, continue to closely monitor his mental status in ICU. (4) Acute worsening of stage 3 chronic kidney disease Current Visit: Yes Status: Acute Recently diagnosed left sided hydronephrosis, s/p left side nephrostomy tube placement but it was removed and stent was placed in previous hospitalization, came in this time with acute on CKD III, pt has hx of metastatic prostate cancer , taking Flomax at home, possible post-renal GEORGE from obstruction, after koo placement more than 400 ml urine output recorded, pt also received 1 L bolus of NS IV in the ER, his SCr improved from 2.54 to 2.22, con't to avoid nephrotoxic agent, con't to closely monitor his renal function. (5) History of atrial fibrillation Current Visit: Yes Status: Acute Currently Eliquis is on hold due to possible underlying acute blood loss anemia , his heart rate has been stable with HR less than 80, con't to closely monitor his VS. (6) COPD (chronic obstructive pulmonary disease) Current Visit: Yes Status: Acute Pt is chronic CO2 retainer, does not seem to be in exacerbation, pt received solu-medrol 125 mg IV x1 in the ER, currently on bipap, con't oxygen support and duoneb ATC. Qualifiers: Qualified Code(s): J44.9 - Chronic obstructive pulmonary disease, unspecified (7) Prostate cancer metastatic to intrapelvic lymph node Current Visit: Yes Status: Acute Pt sees Dr. Marcus in [facility], from recent oncology note, pt received lupron on 11/20/2016, f/u with his primary oncologist as outpt. (8) DM II (diabetes mellitus, type II), controlled Current Visit: Yes Status: Acute Recent HGB a1c is 5.6, glucose stable at this time, con't home dosage of levemir and accucheck q6hrs with SSI. 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 History of Present Illness Consult date: 12/21/16 Requesting physician: Hardeep Malone Reason for consult: other (Acute encephalopathy, acute respiratory failure and acute anemia) Chief complaint: Change in mental status and acute anemia History of present illness: This is a 71 years old male with a history of metastatic prostate cancer, insulin-dependent diabetes type 2, coronary artery disease, chronic kidney disease stage III, COPD, obstructive sleep apnea with CPAP dependent, and atrial fibrillation on chronic anticoagulation therapy with Eliquis, who was recently hospitalized in this hospital from 11/17/2016 to 12/03/2016 for left- sided hydronephrosis, status post left nephrostomy tube placement and acute blood loss anemia with a total transfusion of 5 units of PRBC, blood loss was from nephrostomy tube and due to continuous bleeding from his nephrostomy tube, urology placed antegrade stent and removed the tube, soon after, due to patient' s family member's request and preference, patient was transferred to [facility]. Patient was discharged to care home a week ago, yesterday from the routine lab work, patient's hemoglobin was found to be 6.8, where his baseline hemoglobin was around 8.5 to 9, and with patient's symptom of fatigue and somnolence, patient was transferred to our hospital last night concerning for possible symptomatic acute blood loss anemia. Since the admission patient remained hemodynamically stable and rectal exam with the bedside hemoccult test performed at ER revealed dark-colored stool with positive result. When the patient was evaluated by a night hospitalist, patient was having a respiratory distress with significant abdominal breathing pattern and increased amount of somnolence, ABG was obtained and it showed respiratory acidosis therefore patient was transferred to ICU with BiPAP for close monitoring of his respiratory status. Past Med Surg Social Fam HX - Past Medical History Medical history: arthritis, atrial fibrillation, cancer (metastatic prostate), COPD, coronary artery disease, CVA, diabetes (type II), GERD, hyperlipidemia, hypertension, renal disease (CKD III), valvular heart disease Psychiatric history: anxiety, depression - Past Surgical History Surgical History: coronary bypass (CABG), heart valve replacement, other (left nephrostomy tube placement) - Social History Smoking Status: Unknown if ever smoked Alcohol use: unknown Drug use: unknown Current living situation: ECF - Family History Father Living Status: Hx Family Cardiac Disorders: Yes Medications and Allergies Acetaminophen [Tylenol] 325 mg PO BID PRN 10/17/15 [History] Allopurinol [Zyloprim 300 MG] 300 mg PO DAILY 10/17/15 [History] Ascorbic Acid [Vitamin C] 1,000 mg PO DAILY 10/17/15 [History] Carboxymethylcellulos/Glycerin [Refresh Optive Eye Drops] 1 drop OP QID [History] Docusate Sodium [Colace] 100 mg PO BID 10/17/15 [History] Insulin Glargine [Lantus] 14 unit SQ HS 10/17/15 [History] Ipratropium/Albuterol Neb [Duoneb] 3 ml IH Q6H PRN 10/17/15 [History] Modafinil [Provigil] 400 mg PO QAM 10/17/15 [History] Multivitamin [Multivitamins] 1 tab PO QAM 10/17/15 [History] Omeprazole [PriLOSEC] 40 mg PO DAILY 10/17/15 [History] Saliva Stimulant [Biotene Moisturizing Rinse] 5 spray PO BID 10/17/15 [History] Bicalutamide [Casodex] 50 mg PO DAILY 05/24/16 [History] Capsaicin 0.025% [Trixaicin] 1 appl TP DAILY PRN 05/24/16 [History] Pyridoxine HCl [Vitamin B-6] 100 mg PO DAILY 05/24/16 [History] Gabapentin [Neurontin] 300 mg PO TID 11/17/16 [History] Amlodipine [Norvasc] 5 mg PO DAILY #30 tablet 11/27/16 [Rx] Sertraline [Zoloft] 50 mg PO QAM #30 tablet 11/30/16 [Rx] Albuterol Sulfate [Proair Hfa] 1 puff IH Q6H PRN 12/20/16 [History] Amino Acids/Protein Hydrolys [Pro-Stat Awc Liquid Packet] 30 ml PO QAM 12/20/16 [History] Apixaban [Eliquis] 5 mg PO BID 12/20/16 [History] Aspirin Enteric Coated [Aspirin EC] 81 mg PO DAILY 12/20/16 [History] Atorvastatin [Lipitor] 40 mg PO HS 12/20/16 [History] Benzocaine/Menthol [Cepacol Sore Throat Lozenge] 1 lozenge PO Q6H PRN 12/20/16 [ History] Calcium Carbonate [Calcium] 1,000 mg PO BID 12/20/16 [History] Ferrous Gluconate 324 mg PO BID 12/20/16 [History] Furosemide [Lasix] 80 mg PO QAM 12/20/16 [History] Insulin LISPRO [HumaLOG] 2 - 12 units SQ ACHS 12/20/16 [History] Lisinopril 2.5 mg PO BID 12/20/16 [History] OxyCODONE Immed Rel [Roxicodone 5 MG] 5 mg PO Q4H PRN 12/20/16 [History] Tamsulosin [Flomax] 0.4 mg PO DAILY 12/20/16 [History] U-Lactin 1 appl TP BID 12/20/16 [History] Allergies IVP dye Allergy (Uncoded 10/17/15 06:47) Vomiting ROS unobtainable: due to mental status All Systems: A 10-system review of systems was performed and is negative for pertinent findings except as documented above in the HPI. Physical Examination Vital Signs: Vital Signs, Last 4 Hours Temp Pulse Resp BP Pulse Ox 12/21/16 08:26 97.1 F L 12/21/16 08:16 23 99 12/21/16 07:00 82 23 137/84 99 12/21/16 06:00 81 20 123/80 98 12/21/16 05:14 97.7 F 12/21/16 05:00 82 22 110/88 97 12/21/16 04:47 98.8 F 83 22 104/73 97 General appearance: other (no acute distress, A and Ox0 but follow simple commands, will not open eye to verbal stimuli but does respond to painful stimuli) Eyes: nonicteric (on left side), other (no right side eye) ENT: oropharynx moist Neck: supple, no lymphadenopathy Effort: normal Auscultation: bilateral: diminished breath sounds (upper b/l), rales (slightly at base) Cardiovascular: irregular rhythm Gastrointestinal: normoactive bowel sounds, soft, tender (grimace upon palpation in middle ), non-distended Integumentary: normal Extremities: no cyanosis, edema (mildn non-pitting b/l) Musculoskeletal: no deformities non-focal exam, other (unable to assess full neuro exam due to his current mental status however pupil on left side (no right eye) react to light and round , muscle strentgh 5/5 in upper and lower ext b/l, sensitivity intact, non-focal exam) Results - Laboratory Findings CBC and BMP: 12/21/16 11:20 12/21/16 05:35 ABG ABG pH 7.23 pH Units (7.32-7.45) L 12/21/16 06:36 ABG pCO2 66 mmHg (35-45) H 12/21/16 06:36 ABG pO2 88 mmHg (85-104) 12/21/16 06:36 ABG O2 Saturation 95 % (95-98) 12/21/16 06:36 Abnormal lab findings: Abnormal lab results RBC 2.98 M/mcL (4.19-5.50) L 12/21/16 05:35 Hgb 7.7 g/dL (12.9-16.9) L 12/21/16 05:35 Hct 25.7 % (37.5-50.1) L 12/21/16 05:35 MCH 25.8 pg (28.0-33.3) L 12/21/16 05:35 MCHC 30.0 g/dL (31.6-35.5) L 12/21/16 05:35 RDW 16.9 % (11.5-14.5) H 12/21/16 05:35 Neutrophils # 9.6 K/mcL (1.6-8.9) H 12/21/16 05:35 Lymphocytes # 0.3 K/mcL (0.6-4.6) L 12/21/16 05:35 Nucleated RBCs/100 WBC 0.2 /100 WBC (0) H 12/20/16 20:40 ABG pH 7.23 pH Units (7.32-7.45) L 12/21/16 06:36 ABG pCO2 66 mmHg (35-45) H 12/21/16 06:36 ABG HCO3 27.6 mEQ/L (21-27) H 12/21/16 06:36 ABG Total CO2 29.6 mEq/L (20-26) H 12/21/16 06:36 Sodium 135 mEq/L (136-145) L 12/21/16 05:35 Potassium 5.6 mEq/L (3.5-4.5) H 12/21/16 05:35 BUN 49 mg/dL (8-26) H 12/21/16 05:35 Creatinine 2.22 mg/dL (0.72-1.25) H 12/21/16 05:35 Est GFR ( Amer) 36 (> 60) L 12/21/16 05:35 Est GFR (Non-Af Amer) 30 (> 60) L 12/21/16 05:35 Glucose 181 mg/dL (70-99) H 12/21/16 05:35 POC Glucose 189 (58-89) H 12/21/16 03:14 Calcium 7.6 mg/dL (8.6-10.8) L 12/21/16 05:35 Magnesium 1.2 mg/dL (1.6-2.6) L 12/21/16 05:35 Alkaline Phosphatase 143 Units/L (38-126) H 12/21/16 05:35 Albumin 2.6 g/dL (3.5-5.0) L 12/21/16 05:35 Globulin 3.6 g/dL (2.4-3.5) H 12/21/16 05:35 Albumin/Globulin Ratio 0.7 (1.1-2.2) L 12/21/16 05:35 Urine Clarity Cloudy (Clear) A 12/21/16 04:00 Urine Protein 100 mg/dL (Neg-Trace) H 12/21/16 04:00 Urine Blood Large (Negative) H 12/21/16 04:00 Ur Leukocyte Esterase Large (Negative) H 12/21/16 04:00 Urine Microscopic RBC 50-100 per hpf (0-3) H 12/21/16 04:00 Urine Microscopic WBC 30-50 per hpf (0-3) H 12/21/16 04:00 Ur Squamous Epith Cells Moderate per lpf (None-Few) H 12/21/16 04:00 Urine Bacteria Many per hpf (None-Few) H 12/21/16 04:00 Ur Culture Indicated? YES (NO) A 12/21/16 04:00 - Clinical Findings Intake & Output: Intake & Output 12/20/16 12/21/16 12/21/16 23:59 07:59 15:59 Intake Total 125 / 125 Output Total 200 / 200 225 / 225 Balance -75 / -75 -225 / -225 Consult Discharge Plan - Plan [facility] Provider[facility] - <Bhavna Correia - Last Filed: 12/21/16 16:07> All Systems: A 10-system review of systems was performed and is negative for pertinent findings except as documented above in the HPI. Physical Examination Vital Signs: Vital Signs, Last 4 Hours Pulse Resp BP Pulse Ox 12/21/16 15:40 97 12/21/16 15:27 75 22 108/88 97 12/21/16 14:28 70 21 90/65 98 12/21/16 13:28 67 22 83/58 98 Ventilator Settings Ventilator Settings: Ventilator Settings, Last 8 Hours Ventilator Respiratory Rate 8 Setting Results - Laboratory Findings CBC and BMP: 12/21/16 11:20 12/21/16 05:35 ABG ABG pH 7.28 pH Units (7.32-7.45) L 12/21/16 10:34 ABG pCO2 59 mmHg (35-45) H 12/21/16 10:34 ABG pO2 86 mmHg (85-104) 12/21/16 10:34 ABG O2 Saturation 95 % (95-98) 12/21/16 10:34 Abnormal lab findings: Abnormal lab results RBC 2.98 M/mcL (4.19-5.50) L 12/21/16 05:35 Hgb 8.6 g/dL (12.9-16.9) L 12/21/16 11:20 Hct 27.8 % (37.5-50.1) L 12/21/16 11:20 MCH 25.8 pg (28.0-33.3) L 12/21/16 05:35 MCHC 30.0 g/dL (31.6-35.5) L 12/21/16 05:35 RDW 16.9 % (11.5-14.5) H 12/21/16 05:35 Neutrophils # 9.6 K/mcL (1.6-8.9) H 12/21/16 05:35 Lymphocytes # 0.3 K/mcL (0.6-4.6) L 12/21/16 05:35 Nucleated RBCs/100 WBC 0.2 /100 WBC (0) H 12/20/16 20:40 ABG pH 7.28 pH Units (7.32-7.45) L 12/21/16 10:34 ABG pCO2 59 mmHg (35-45) H 12/21/16 10:34 ABG HCO3 27.7 mEQ/L (21-27) H 12/21/16 10:34 ABG Total CO2 29.5 mEq/L (20-26) H 12/21/16 10:34 Sodium 135 mEq/L (136-145) L 12/21/16 05:35 Potassium 5.6 mEq/L (3.5-4.5) H 12/21/16 05:35 BUN 49 mg/dL (8-26) H 12/21/16 05:35 Creatinine 2.22 mg/dL (0.72-1.25) H 12/21/16 05:35 Est GFR ( Amer) 36 (> 60) L 12/21/16 05:35 Est GFR (Non-Af Amer) 30 (> 60) L 12/21/16 05:35 Glucose 181 mg/dL (70-99) H 12/21/16 05:35 POC Glucose 242 (58-89) H 12/21/16 11:26 Calcium 7.6 mg/dL (8.6-10.8) L 12/21/16 05:35 Magnesium 1.2 mg/dL (1.6-2.6) L 12/21/16 05:35 Alkaline Phosphatase 143 Units/L (38-126) H 12/21/16 05:35 Albumin 2.6 g/dL (3.5-5.0) L 12/21/16 05:35 Globulin 3.6 g/dL (2.4-3.5) H 12/21/16 05:35 Albumin/Globulin Ratio 0.7 (1.1-2.2) L 12/21/16 05:35 Urine Clarity Cloudy (Clear) A 12/21/16 04:00 Urine Protein 100 mg/dL (Neg-Trace) H 12/21/16 04:00 Urine Blood Large (Negative) H 12/21/16 04:00 Ur Leukocyte Esterase Large (Negative) H 12/21/16 04:00 Urine Microscopic RBC 50-100 per hpf (0-3) H 12/21/16 04:00 Urine Microscopic WBC 30-50 per hpf (0-3) H 12/21/16 04:00 Ur Squamous Epith Cells Moderate per lpf (None-Few) H 12/21/16 04:00 Urine Bacteria Many per hpf (None-Few) H 12/21/16 04:00 Ur Culture Indicated? YES (NO) A 12/21/16 04:00 - Clinical Findings Intake & Output: Intake & Output 12/21/16 12/21/16 12/21/16 07:59 15:59 23:59 Intake Total 495 / 495 954 / 954 Output Total 200 / 200 775 / 775 Balance 295 / 295 179 / 179 - Attending Attestation I examined this patient and my medical decision-making was reviewed with the THIRD RAIL INSTALLER/PA/Advanced Practice Nurse/Resident Physician. I agree with the documented findings, disposition and treatment plan as described except to the extent set forth below. Patient seen and examined. Labs, radiology, chart personally reviewed. 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 Patient is tolerating NIV. Patient is lethargic, but appropriate and easily arousable. His ABG has been monitored. There is any worsening, because he is at risk with multiple comorbidities, and then he would need invasive mechanical ventilation Cardiovascular: Relatively stable. Fluid bolus for hypotension. Withholding anticoagulation because of the risk of bleeding and he would be at risk of thromboembolic events. GI: Nutrition per dietary and GI prophylaxis per routine. Heme: DVT prophylaxis per routine. Monitor H&H and patient had blood transfusion. Surgery team has seen the patient for endoscopy ID: There is no evidence of infections clinically Renal; urine out put and renal funtion reviewed Endorcine: blood glucose is monitored Lines: all lines checked and no evidence of infections Skin: skin care to prevent pressure ulcers per nursing routine care
[2016-12-21 10:44] LABS: ABG Base Excess 0.4 mEq/L (-2.0 to 3.0); ABG HCO3 27.7 mEQ/L (21-27); ABG Oxygen Saturation 95 % (95-98); ABG PCO2 59 mmHg (35-45); ABG PH 7.28 pH Units (7.32-7.45); ABG PO2 86 mmHg (85-104); ABG TCO2 29.5 mEq/L (20-26)
[2016-12-21 10:45] LABS: Blood Gas FiO2 35 %
[2016-12-21 11:35] LABS: Hematocrit 27.8 % (37.5-50.1); Hemoglobin 8.6 g/dL (12.9-16.9)
--- NOTE | 2016-12-21 12:29 | General Surgery Consult Note ---
Date of Encounter: 12/21/16 Time of Encounter: 12:29 Assessment and Plan (1) GI bleed Current Visit: Yes Status: Suspected Concern for GI bleed d/t Hgb of 6.8 He has received 2 units PRBC with appropriate response to 8.6 No overt signs of bleeding on my exam. Ancillary staff has also not noticed any overt bleeding. ER documentation states he had a positive heme occult in the ED, however the laboratory noted the sample as negative for occult blood. He has hypercapnic respiratory failure and is requiring Bilevel to maintain oxygenation. He is now hypotensive with MAP of 66. Will be bolused 500ml NS. He has hand chronic normocytic anemia for the past year. Iron studies done in Nov, 2016: low iron (52) and low % saturation (12) with normal transferrin and ferritin. Acute blood loss anemia vs. anemia of chronic disease. May require EGD/colonoscopy when resuscitated. Qualifiers: GI bleed type/associated pathology: unspecified gastrointestinal hemorrhage type Qualified Code(s): K92.2 - Gastrointestinal hemorrhage, unspecified History of Present Illness Consult date: 12/21/16 Reason for consult: endoscopy (concern for GI bleed) Requesting physician: Hardeep Malone History of present illness: Mr. Blas is a 71 yo M who presented to [facility] ED from a SNF for low hemoglobin. This history is being generated from previous providers notes and ancillary staff as he is currently unarousable. He has a history of metastatic prostate cancer, insulin-dependent diabetes type 2, coronary artery disease, chronic kidney disease stage III, COPD, obstructive sleep apnea with CPAP dependent, and atrial fibrillation on chronic anticoagulation therapy with Eliquis, who was recently hospitalized in this hospital from 11/17/2016 to 12/03/2016 for left-sided hydronephrosis, status post left nephrostomy tube placement and acute blood loss anemia with a total transfusion of 5 units of PRBC, blood loss was from nephrostomy tube and due to continuous bleeding from his nephrostomy tube, urology placed antegrade stent and removed the tube. He was noted to have a hemoglobin of 6.8 at the nursing facility. His baseline hemoglobin has been approximately 9 since May 2016. It was reported that he has been increasing somnolent. He has received 2 units PRBC so far this admission, with appropriate response of Hgb form 6.6-8.6. He is currently very somnolent and difficult to arouse. He is on Bilevel as he has hypercapnic respiratory acidosis. He is now hypotensive with a MAP of 66. Past Med Surg Social Fam HX - Past Medical History Medical history: arthritis, atrial fibrillation, cancer (metastatic prostate), COPD, coronary artery disease, CVA, diabetes (type II), GERD, hyperlipidemia, hypertension, renal disease (CKD III), valvular heart disease Psychiatric history: anxiety, depression - Past Surgical History Surgical History: coronary bypass (CABG), heart valve replacement, other (left nephrostomy tube placement) - Social History Smoking Status: Unknown if ever smoked Smokeless Tobacco Status: No Alcohol use: unknown Drug use: unknown - Family History Father Living Status: Hx Family Cardiac Disorders: Yes Medications and Allergies Acetaminophen [Tylenol] 325 mg PO BID PRN 10/17/15 [History] Allopurinol [Zyloprim 300 MG] 300 mg PO DAILY 10/17/15 [History] Ascorbic Acid [Vitamin C] 1,000 mg PO DAILY 10/17/15 [History] Carboxymethylcellulos/Glycerin [Refresh Optive Eye Drops] 1 drop OP QID [History] Docusate Sodium [Colace] 100 mg PO BID 10/17/15 [History] Insulin Glargine [Lantus] 14 unit SQ HS 10/17/15 [History] Ipratropium/Albuterol Neb [Duoneb] 3 ml IH Q6H PRN 10/17/15 [History] Modafinil [Provigil] 400 mg PO QAM 10/17/15 [History] Multivitamin [Multivitamins] 1 tab PO QAM 10/17/15 [History] Omeprazole [PriLOSEC] 40 mg PO DAILY 10/17/15 [History] Saliva Stimulant [Biotene Moisturizing Rinse] 5 spray PO BID 10/17/15 [History] Bicalutamide [Casodex] 50 mg PO DAILY 05/24/16 [History] Capsaicin 0.025% [Trixaicin] 1 appl TP DAILY PRN 05/24/16 [History] Pyridoxine HCl [Vitamin B-6] 100 mg PO DAILY 05/24/16 [History] Gabapentin [Neurontin] 300 mg PO TID 11/17/16 [History] Amlodipine [Norvasc] 5 mg PO DAILY #30 tablet 11/27/16 [Rx] Sertraline [Zoloft] 50 mg PO QAM #30 tablet 11/30/16 [Rx] Albuterol Sulfate [Proair Hfa] 1 puff IH Q6H PRN 12/20/16 [History] Amino Acids/Protein Hydrolys [Pro-Stat Awc Liquid Packet] 30 ml PO QAM 12/20/16 [History] Apixaban [Eliquis] 5 mg PO BID 12/20/16 [History] Aspirin Enteric Coated [Aspirin EC] 81 mg PO DAILY 12/20/16 [History] Atorvastatin [Lipitor] 40 mg PO HS 12/20/16 [History] Benzocaine/Menthol [Cepacol Sore Throat Lozenge] 1 lozenge PO Q6H PRN 12/20/16 [ History] Calcium Carbonate [Calcium] 1,000 mg PO BID 12/20/16 [History] Ferrous Gluconate 324 mg PO BID 12/20/16 [History] Furosemide [Lasix] 80 mg PO QAM 12/20/16 [History] Insulin LISPRO [HumaLOG] 2 - 12 units SQ ACHS 12/20/16 [History] Lisinopril 2.5 mg PO BID 12/20/16 [History] OxyCODONE Immed Rel [Roxicodone 5 MG] 5 mg PO Q4H PRN 12/20/16 [History] Tamsulosin [Flomax] 0.4 mg PO DAILY 12/20/16 [History] U-Lactin 1 appl TP BID 12/20/16 [History] Allergies IVP dye Allergy (Uncoded 10/17/15 06:47) Vomiting Review of Systems ROS unobtainable: due to mental status All systems PM: A 10-system review of systems was performed and is negative for pertinent findings except as documented above in the HPI. General Surgery Exam Initial Vital Signs Temp Pulse Resp BP Pulse Ox 98.8 F 98 16 103/57 98 12/20/16 19:24 12/20/16 19:24 12/20/16 19:24 12/20/16 19:24 12/20/16 19:24 Exam Initial Vital Signs Temp Pulse Resp BP Pulse Ox 98.8 F 98 16 103/57 98 12/20/16 19:24 12/20/16 19:24 12/20/16 19:24 12/20/16 19:24 12/20/16 19:24 - General physical appearance other (on Bilevel, hypersomnolent, difficult to arouse) - Neck trachea midline - Respiratory rales: bilateral - Abdomen Abdomen: soft, bowel sounds - Neurologic other (difficult to arouse, on Bilevel) Results - Labs 12/21/16 11:20 12/21/16 05:35 Abnormal lab results RBC 2.98 M/mcL (4.19-5.50) L 12/21/16 05:35 Hgb 8.6 g/dL (12.9-16.9) L 12/21/16 11:20 Hct 27.8 % (37.5-50.1) L 12/21/16 11:20 MCH 25.8 pg (28.0-33.3) L 12/21/16 05:35 MCHC 30.0 g/dL (31.6-35.5) L 12/21/16 05:35 RDW 16.9 % (11.5-14.5) H 12/21/16 05:35 Neutrophils # 9.6 K/mcL (1.6-8.9) H 12/21/16 05:35 Lymphocytes # 0.3 K/mcL (0.6-4.6) L 12/21/16 05:35 Nucleated RBCs/100 WBC 0.2 /100 WBC (0) H 12/20/16 20:40 ABG pH 7.28 pH Units (7.32-7.45) L 12/21/16 10:34 ABG pCO2 59 mmHg (35-45) H 12/21/16 10:34 ABG HCO3 27.7 mEQ/L (21-27) H 12/21/16 10:34 ABG Total CO2 29.5 mEq/L (20-26) H 12/21/16 10:34 Sodium 135 mEq/L (136-145) L 12/21/16 05:35 Potassium 5.6 mEq/L (3.5-4.5) H 12/21/16 05:35 BUN 49 mg/dL (8-26) H 12/21/16 05:35 Creatinine 2.22 mg/dL (0.72-1.25) H 12/21/16 05:35 Est GFR ( Amer) 36 (> 60) L 12/21/16 05:35 Est GFR (Non-Af Amer) 30 (> 60) L 12/21/16 05:35 Glucose 181 mg/dL (70-99) H 12/21/16 05:35 POC Glucose 242 (58-89) H 12/21/16 11:26 Calcium 7.6 mg/dL (8.6-10.8) L 12/21/16 05:35 Magnesium 1.2 mg/dL (1.6-2.6) L 12/21/16 05:35 Alkaline Phosphatase 143 Units/L (38-126) H 12/21/16 05:35 Albumin 2.6 g/dL (3.5-5.0) L 12/21/16 05:35 Globulin 3.6 g/dL (2.4-3.5) H 12/21/16 05:35 Albumin/Globulin Ratio 0.7 (1.1-2.2) L 12/21/16 05:35 Urine Clarity Cloudy (Clear) A 12/21/16 04:00 Urine Protein 100 mg/dL (Neg-Trace) H 12/21/16 04:00 Urine Blood Large (Negative) H 12/21/16 04:00 Ur Leukocyte Esterase Large (Negative) H 12/21/16 04:00 Urine Microscopic RBC 50-100 per hpf (0-3) H 12/21/16 04:00 Urine Microscopic WBC 30-50 per hpf (0-3) H 12/21/16 04:00 Ur Squamous Epith Cells Moderate per lpf (None-Few) H 12/21/16 04:00 Urine Bacteria Many per hpf (None-Few) H 12/21/16 04:00 Ur Culture Indicated? YES (NO) A 12/21/16 04:00 Diabetes panel 12/21/16 Range/Units 05:35 Sodium 135 L (136-145) mEq/L Potassium 5.6 H (3.5-4.5) mEq/L Chloride 104 (98-109) mEq/L Carbon Dioxide 21 (19-29) mEq/L BUN 49 H (8-26) mg/dL Creatinine 2.22 H (0.72-1.25) mg/dL Glucose 181 H (70-99) mg/dL Calcium 7.6 L (8.6-10.8) mg/dL AST 18 (5-34) Units/L ALT 14 (0-55) Units/L Alkaline Phosphatase 143 H (38-126) Units/L Albumin 2.6 L (3.5-5.0) g/dL Calcium panel 12/21/16 Range/Units 05:35 Calcium 7.6 L (8.6-10.8) mg/dL Phosphorus 4.6 (2.3-4.7) mg/dL Albumin 2.6 L (3.5-5.0) g/dL Pituitary panel 12/21/16 Range/Units 05:35 Sodium 135 L (136-145) mEq/L Potassium 5.6 H (3.5-4.5) mEq/L Chloride 104 (98-109) mEq/L Carbon Dioxide 21 (19-29) mEq/L BUN 49 H (8-26) mg/dL Creatinine 2.22 H (0.72-1.25) mg/dL Glucose 181 H (70-99) mg/dL Calcium 7.6 L (8.6-10.8) mg/dL Adrenal panel 12/21/16 Range/Units 05:35 Sodium 135 L (136-145) mEq/L Potassium 5.6 H (3.5-4.5) mEq/L Chloride 104 (98-109) mEq/L Carbon Dioxide 21 (19-29) mEq/L BUN 49 H (8-26) mg/dL Creatinine 2.22 H (0.72-1.25) mg/dL Glucose 181 H (70-99) mg/dL Calcium 7.6 L (8.6-10.8) mg/dL Total Bilirubin 0.4 (0.2-1.2) mg/dL AST 18 (5-34) Units/L ALT 14 (0-55) Units/L Alkaline Phosphatase 143 H (38-126) Units/L Albumin 2.6 L (3.5-5.0) g/dL All other labs normal. Consult Discharge Plan - Plan [facility]Primary Care Provider[facility] -
[2016-12-21] MEDS ORDERED: 0.9 % Sodium Chloride 500 ML IVC ONE (13:10)
--- NOTE | 2016-12-21 18:16 | Electrocardiograph Report ---
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
[2016-12-21] MEDS: Pantoprazole 40 MG VIAL IVP SCH (18:17)
[2016-12-21] MEDS: Insulin DETEMIR 100 UNIT/ML X5UNITS SQ SCH (20:00)
[2016-12-21 23:25] LABS: Hematocrit 25.6 % (37.5-50.1); Hemoglobin 7.9 g/dL (12.9-16.9)
[2016-12-22 03:16] LABS: Hematocrit 24.9 % (37.5-50.1); Hemoglobin 7.8 g/dL (12.9-16.9); Immature Granulocytes % 0.7 % (0-4); Lymphocytes # 0.3 K/mcL (0.6-4.6); Lymphocytes % 3.2 %; Mean Corpuscular HGB Conc 31.3 g/dL (31.6-35.5); Mean Corpuscular Hemoglobin 26.4 pg (28.0-33.3); Mean Corpuscular Volume 84.1 fL (83.0-100.0); Mean Platelet Volume 11.5 fL (9.4-12.4); Monocytes # 0.6 K/mcL (0.0-1.3); Monocytes % 6.4 %; Neutrophils # 8.9 K/mcL (1.6-8.9); Nucleated Red Blood Cells 0.3 /100 WBC (0); Platelet Count 191 K/mcL (140-400); Red Blood Count 2.96 M/mcL (4.19-5.50); Red Cell Distribution Width 16.4 % (11.5-14.5); Segmented Neutrophils % 89.7 %
[2016-12-22 03:42] LABS: Albumin 2.6 g/dL (3.5-5.0); Albumin/Globulin Ratio 0.7 (1.1-2.2); Bilirubin,Total 0.3 mg/dL (0.2-1.2); Calcium 8.6 mg/dL (8.6-10.8); Globulin 3.6 g/dL (2.4-3.5); Magnesium 1.8 mg/dL (1.6-2.6); Potassium 5.4 mEq/L (3.5-4.5); Total Protein 6.2 g/dL (6.0-8.3)
[2016-12-22] MEDS: Ipratropium/Albuterol Neb 3 ML IH SCH ×5 (04:11→20:58)
[2016-12-22] MEDS: Pantoprazole 40 MG VIAL IVP SCH ×2 (05:26→17:44)
[2016-12-22] MEDS: Insulin LISPRO 300 UNITS/3 ML VIAL SQ SCH ×4 (05:26→20:01)
--- NOTE | 2016-12-22 06:55 | Pulmonology Progress Note ---
<Conrado Jane - Last Filed: 12/22/16 15:59> Date of Encounter: 12/22/16 Time of Encounter: 06:55 Assessment and Plan (1) Acute on chronic respiratory failure with hypoxia and hypercapnia Current Visit: Yes Status: Acute Clinically patient's respiratory status has improved, currently on 3L of nasal cannula and satting 95%, he is more alert than yesterday. Likely this was multifactorial from symptomatic anemia, history of obstructive sleep apnea, COPD and obesity hypoventilation syndrome, chest x-ray showed chronic elevation of right hemidiaphragm and small bilateral stable pleural effusions, initial ABG showed respiratory acidosis with pH of 7.23, PCO2 of 66 and bicarbonate of 27.6, after use of BiPAP patient's ABG showed improvement, patient will continue to use BiPAP prn and at the bedtime. (2) Acute blood loss anemia Current Visit: Yes Status: Acute After 3 units of PRBC patient's hemoglobin improved from 6.6 to 8.6, overnight his hemoglobin has been stable between 7.9-8.2, he had a normal bowel movement yesterday and this morning, spoke with the surgery team, at this time patient is not required to have urgent upper or lower endoscopy, this will be done as outpatient. This morning patient had a significant hematuria in his koo bag, in recent hospitalization 3 weeks ago, patient received 5 units of PRBC for acute blood loss anemia from bleeding into left-sided nephrostomy tube, soon after the tube was removed and antegrade ureteric stent was placed, this time abdominal CT scan without contrast showed stable retroperitoneal and pelvic adenopathy with no mentioning of hydronephrosis, with a history of recent hydronephrosis and metastatic prostate cancer currently with gross hematuria, will consult urology and transfuse another unit of PRBC, followed by IV Lasix. (3) Gross hematuria Current Visit: Yes Status: Acute This morning patient had a significant hematuria in his koo bag, in recent hospitalization 3 weeks ago, patient received 5 units of PRBC for acute blood loss anemia from bleeding into left-sided nephrostomy tube, soon after the tube was removed and antegrade ureteric stent was placed, this time abdominal CT scan without contrast showed stable retroperitoneal and pelvic adenopathy with no mentioning of hydronephrosis, left-sided ureteral stent remains in place and terminates in the urinary bladder. With a recent history of hydronephrosis and metastatic prostate cancer now with gross hematuria, will consult urology. (4) Acute encephalopathy Current Visit: Yes Status: Acute Resolved, now patient's mental status is at baseline, his change in mental status was likely due to hypercarbia from respiratory acidosis and symptomatic anemia, his hypercarbia improved after use of BiPAP and his hemoglobin improved after 3 units of PRBC transfusion, continue to closely monitor his mental status in ICU. (5) UTI (urinary tract infection) Current Visit: Yes Status: Acute Urine culture this time came back gram-negative harsh, urine culture from 2016 showed Pseudomonas sensitive to cefepime, will start him on cefepime IV until urine culture sensitivity comes back, and adjust antibiotic based on the result, patient is not septic at this time. Qualifiers: Qualified Code(s): N39.0 - Urinary tract infection, site not specified; R31.9 - Hematuria, unspecified (6) Acute worsening of stage 3 chronic kidney disease Current Visit: Yes Status: Acute Recently diagnosed left sided hydronephrosis, s/p left side nephrostomy tube placement but it was removed and stent was placed in previous hospitalization, came in this time with acute on CKD III, pt has hx of metastatic prostate cancer , taking Flomax at home, possible post-renal GEORGE from obstruction, after koo placement more than 2.7 L of urine output recorded within the last 24 hours, his SCr improved from 2.54 to 2.11, con't to avoid nephrotoxic agents and closely monitor his renal function. (7) History of atrial fibrillation Current Visit: Yes Status: Acute Currently Eliquis is on hold due to possible underlying acute blood loss anemia , his heart rate has been stable with HR less than 90, sinus, con't to closely monitor his VS. (8) COPD (chronic obstructive pulmonary disease) Current Visit: Yes Status: Acute Pt is chronic CO2 retainer, does not seem to be in exacerbation, pt received solu-medrol 125 mg IV x1 in the ER, currently on bipap prn and at bedtime, satting 95% on 3L of NC, con't oxygen support and duoneb ATC. Qualifiers: Qualified Code(s): J44.9 - Chronic obstructive pulmonary disease, unspecified (9) Prostate cancer metastatic to intrapelvic lymph node Current Visit: Yes Status: Acute Pt sees Dr. Marcus in [facility], from recent oncology note, pt received lupron on 11/20/2016, f/u with his primary oncologist as outpt. (10) DM II (diabetes mellitus, type II), controlled Current Visit: Yes Status: Acute Recent HGB a1c is 5.6, glucose stable at this time, con't home dosage of levemir and accucheck ACHS with SSI. Qualifiers: Qualified Code(s): E11.9 - Type 2 diabetes mellitus without complications; Z79.4 - long term care social worker (current) use of insulin (11) DVT prophylaxis Current Visit: Yes Status: Acute IPC placed, held home med of Eliquis. Subjective Principal diagnosis: Symptomatic anemia and acute on chronic respiratory failure Interval history: This is a 71 year old male with a history of metastatic prostate cancer who [facility] for symptomatic acute blood loss anemia, acute on chronic respiratory failure and acute encephalopathy. Patient seen and examined. This morning patient was sitting comfortably in bed watching TV, he ate 100% dinner last night, A and Ox3, answers questions appropriately and follow commands, normal bowel movement last night, denies chest pain, abdominal pain or shortness of breath this morning. Objective PUL Vital signs: Last Vital Signs Temp 97.5 F L 12/22/16 04:06 Pulse 84 12/22/16 06:01 Resp 21 12/22/16 06:01 BP 103/69 12/22/16 06:01 Pulse Ox 99 12/22/16 06:01 General appearance: no acute distress, alert Eyes: nonicteric ENT: oropharynx moist Neck: supple Effort: normal Auscultation: bilateral: rales (Slightly at base) Cardiovascular: regular rate and rhythm Gastrointestinal: normoactive bowel sounds, soft, non-tender, non-distended Integumentary: normal Extremities: no cyanosis, edema (Mild nonpitting pedal bilaterally) Musculoskeletal: no deformities normal mental status, non-focal exam, CN II-XII normal, motor strength normal and symmetric, other (No right eye, left eye pupil round and reactive to light) mood appropriate, affect normal Results - Laboratory Findings CBC and BMP: 12/22/16 07:42 12/22/16 02:43 ABG ABG pH 7.28 pH Units (7.32-7.45) L 12/21/16 10:34 ABG pCO2 59 mmHg (35-45) H 12/21/16 10:34 ABG pO2 86 mmHg (85-104) 12/21/16 10:34 ABG O2 Saturation 95 % (95-98) 12/21/16 10:34 Abnormal lab findings: Abnormal lab results RBC 2.96 M/mcL (4.19-5.50) L 12/22/16 02:43 Hgb 7.8 g/dL (12.9-16.9) L 12/22/16 02:43 Hct 24.9 % (37.5-50.1) L 12/22/16 02:43 MCH 26.4 pg (28.0-33.3) L 12/22/16 02:43 MCHC 31.3 g/dL (31.6-35.5) L 12/22/16 02:43 RDW 16.4 % (11.5-14.5) H 12/22/16 02:43 Lymphocytes # 0.3 K/mcL (0.6-4.6) L 12/22/16 02:43 Nucleated RBCs/100 WBC 0.3 /100 WBC (0) H 12/22/16 02:43 ABG pH 7.28 pH Units (7.32-7.45) L 12/21/16 10:34 ABG pCO2 59 mmHg (35-45) H 12/21/16 10:34 ABG HCO3 27.7 mEQ/L (21-27) H 12/21/16 10:34 ABG Total CO2 29.5 mEq/L (20-26) H 12/21/16 10:34 Sodium 135 mEq/L (136-145) L 12/22/16 02:43 Potassium 5.4 mEq/L (3.5-4.5) H 12/22/16 02:43 BUN 58 mg/dL (8-26) H 12/22/16 02:43 Creatinine 2.11 mg/dL (0.72-1.25) H 12/22/16 02:43 Est GFR ( Amer) 38 (> 60) L 12/22/16 02:43 Est GFR (Non-Af Amer) 31 (> 60) L 12/22/16 02:43 BUN/Creatinine Ratio 27 (6-26) H 12/22/16 02:43 Glucose 188 mg/dL (70-99) H 12/22/16 02:43 POC Glucose 187 (58-89) H 12/22/16 04:53 Calculated Osmolality 301 (280-300) H 12/22/16 02:43 Alkaline Phosphatase 135 Units/L (38-126) H 12/22/16 02:43 Albumin 2.6 g/dL (3.5-5.0) L 12/22/16 02:43 Globulin 3.6 g/dL (2.4-3.5) H 12/22/16 02:43 Albumin/Globulin Ratio 0.7 (1.1-2.2) L 12/22/16 02:43 Urine Clarity Cloudy (Clear) A 12/21/16 04:00 Urine Protein 100 mg/dL (Neg-Trace) H 12/21/16 04:00 Urine Blood Large (Negative) H 12/21/16 04:00 Ur Leukocyte Esterase Large (Negative) H 12/21/16 04:00 Urine Microscopic RBC 50-100 per hpf (0-3) H 12/21/16 04:00 Urine Microscopic WBC 30-50 per hpf (0-3) H 12/21/16 04:00 Ur Squamous Epith Cells Moderate per lpf (None-Few) H 12/21/16 04:00 Urine Bacteria Many per hpf (None-Few) H 12/21/16 04:00 Ur Culture Indicated? YES (NO) A 12/21/16 04:00 - Microbiology Findings Microbiology Findings: Microbiology, Last 48 Hours 12/21/16 04:00 Urine Culture - Preliminary Urine,Random-Not Preferred Gram Negative Harsh - Clinical Findings Intake & Output: Intake & Output 12/21/16 12/21/16 12/22/16 15:59 23:59 07:59 Intake Total 954 / 954 700 / 700 Output Total 775 / 775 775 / 775 400 / 400 Balance 179 / 179 -75 / -75 -400 / -400 Weight 137 kg Consult Discharge Plan - Plan [facility]: [facility] Care Provider[facility] - <Bhavna Correia - Last Filed: 12/22/16 16:34> Objective PUL Vital signs: Last Vital Signs Temp 97.8 F 12/22/16 13:58 Pulse 106 12/22/16 15:30 Resp 16 12/22/16 15:47 BP 130/88 12/22/16 15:30 Pulse Ox 98 12/22/16 15:47 Results - Laboratory Findings CBC and BMP: 12/22/16 07:42 12/22/16 02:43 ABG ABG pH 7.28 pH Units (7.32-7.45) L 12/21/16 10:34 ABG pCO2 59 mmHg (35-45) H 12/21/16 10:34 ABG pO2 86 mmHg (85-104) 12/21/16 10:34 ABG O2 Saturation 95 % (95-98) 12/21/16 10:34 Abnormal lab findings: Abnormal lab results RBC 2.96 M/mcL (4.19-5.50) L 12/22/16 02:43 Hgb 8.2 g/dL (12.9-16.9) L 12/22/16 07:42 Hct 26.7 % (37.5-50.1) L 12/22/16 07:42 MCH 26.4 pg (28.0-33.3) L 12/22/16 02:43 MCHC 31.3 g/dL (31.6-35.5) L 12/22/16 02:43 RDW 16.4 % (11.5-14.5) H 12/22/16 02:43 Lymphocytes # 0.3 K/mcL (0.6-4.6) L 12/22/16 02:43 Nucleated RBCs/100 WBC 0.3 /100 WBC (0) H 12/22/16 02:43 ABG pH 7.28 pH Units (7.32-7.45) L 12/21/16 10:34 ABG pCO2 59 mmHg (35-45) H 12/21/16 10:34 ABG HCO3 27.7 mEQ/L (21-27) H 12/21/16 10:34 ABG Total CO2 29.5 mEq/L (20-26) H 12/21/16 10:34 Sodium 135 mEq/L (136-145) L 12/22/16 02:43 Potassium 5.4 mEq/L (3.5-4.5) H 12/22/16 02:43 BUN 58 mg/dL (8-26) H 12/22/16 02:43 Creatinine 2.11 mg/dL (0.72-1.25) H 12/22/16 02:43 Est GFR ( Amer) 38 (> 60) L 12/22/16 02:43 Est GFR (Non-Af Amer) 31 (> 60) L 12/22/16 02:43 BUN/Creatinine Ratio 27 (6-26) H 12/22/16 02:43 Glucose 188 mg/dL (70-99) H 12/22/16 02:43 POC Glucose 107 (58-89) H 12/22/16 16:24 Calculated Osmolality 301 (280-300) H 12/22/16 02:43 Alkaline Phosphatase 135 Units/L (38-126) H 12/22/16 02:43 Albumin 2.6 g/dL (3.5-5.0) L 12/22/16 02:43 Globulin 3.6 g/dL (2.4-3.5) H 12/22/16 02:43 Albumin/Globulin Ratio 0.7 (1.1-2.2) L 12/22/16 02:43 Urine Clarity Cloudy (Clear) A 12/21/16 04:00 Urine Protein 100 mg/dL (Neg-Trace) H 12/21/16 04:00 Urine Blood Large (Negative) H 12/21/16 04:00 Ur Leukocyte Esterase Large (Negative) H 12/21/16 04:00 Urine Microscopic RBC 50-100 per hpf (0-3) H 12/21/16 04:00 Urine Microscopic WBC 30-50 per hpf (0-3) H 12/21/16 04:00 Ur Squamous Epith Cells Moderate per lpf (None-Few) H 12/21/16 04:00 Urine Bacteria Many per hpf (None-Few) H 12/21/16 04:00 Ur Culture Indicated? YES (NO) A 12/21/16 04:00 - Microbiology Findings Microbiology Findings: Microbiology, Last 48 Hours 12/21/16 04:00 Urine Culture - Preliminary Urine,Random-Not Preferred Gram Negative Harsh - Clinical Findings Intake & Output: Intake & Output 12/22/16 12/22/16 12/22/16 07:59 15:59 23:59 Intake Total 720 / 720 Output Total 400 / 400 1400 / 1400 Balance -400 / -400 -680 / -680 Weight 137 kg - Attending Attestation I examined this patient and my medical decision-making was reviewed with the SCOURING TRAIN OPERATOR CHIEF/PA/Advanced Practice Nurse/Resident Physician. I agree with the documented findings, disposition and treatment plan as described except to the extent set forth below. Patient seen and examined. Labs, radiology, chart personally reviewed. Agree with resident's history and physical, assessment, plan with following comments: SYSTEM OPERATION SUPERINTENDENT: Patient follows commands, Pulmonary: Acceptable oxygenation and ventilation Cardiovascular: stable GI: Nutrition per dietary and GI prophylaxis per routine Heme: DVT prophylaxis per routine. Mechanical due to bleeding. Patient received a unit of packed RBC and urology consultation. Overall there is some improvement mainly mental status, however there is still risk of bleeding. We will monitor patient in the ICU for next 24 hours and if remains stable and no evidence of bleeding then he can be transferred out of ICU
[2016-12-22 07:59] LABS: Hematocrit 26.7 % (37.5-50.1); Hemoglobin 8.2 g/dL (12.9-16.9)
[2016-12-22] MEDS: Cefepime HCl 1,000 MG in D5% in Water (Mini-Bag+) 100 ML IVPB SCH ×2 (08:14→17:44)
[2016-12-22] MEDS ORDERED: Furosemide 40 MG/4 ML VIAL IVP ONE (08:18)
[2016-12-22] MEDS ORDERED: Aminoglycoside Consult 1 EACH MC ONE (09:26)
--- NOTE | 2016-12-22 09:48 | General Surgery Progress Note ---
Date of Encounter: 12/22/16 Time of Encounter: 08:45 - Assessment and Plan (1) Anemia, chronic disease Current Visit: Yes Status: Acute 3 units of PRBC transfused Hgb 6.6 on admission and currently 8.2 Patient has had 2 regular bowel movements and is hemoccult negative He does have hematuria noted in his koo catheter Urology has been consulted Recommend evaluating for EGD/Colonoscopy as an outpatient No urgent need to proceed with endoscopy at this time Surgery will sign off at this time. Thank you for allowing us to participate in the care of this patient. Please call with further questions/concerns. (2) Prostate cancer metastatic to intrapelvic lymph node Current Visit: Yes Status: Acute Urology consulted Subjective Patient reports: no new complaints, feels better, tolerating a regular diet, flatus, bowel movement (2 normal brown bowel movements this morning), afebrile, other (resting comfortably in bed; hematuria noted in koo bag) Objective Vital Signs - Last 8 Hours Temp Pulse Resp BP Pulse Ox 12/22/16 08:30 81 20 114/78 96 12/22/16 08:06 18 95 12/22/16 07:30 97.7 F 94 18 108/78 100 12/22/16 06:01 84 21 103/69 99 12/22/16 05:26 84 23 96/61 99 12/22/16 04:11 25 99 12/22/16 04:06 97.5 F L 87 21 99/68 99 12/22/16 03:05 83 18 88/59 98 12/22/16 02:00 83 18 99/64 97 Intake and Output 12/21/16 12/22/16 12/22/16 23:59 07:59 15:59 Intake Total 700 / 700 0 / 0 Output Total 775 / 775 400 / 400 600 / 600 Balance -75 / -75 -400 / -400 -600 / -600 Intake: Oral 700 / 700 0 / 0 Output: Catheter 775 / 775 400 / 400 600 / 600 Other: Meal Dinner Percent of Meal Consumed 100% Stool Size Small Stool Consistency soft Stool Color Brown Weight 137 kg Patient Weight 12/22/16 23:59 Weight 137 kg - General physical appearance no distress, chronically ill, obese - Eyes normal ocular movement - ENT dry mucosa, atraumatic, normocephalic - Neck Neck exam: trachea midline - Respiratory normal respiratory effort, clear to auscultation - Cardiovascular Cardiovascular exam: Present: RRR - Abdomen Abdomen: Present: bowel sounds present, soft, non tender - Genitourinary other (koo catheter to SD with hematuria noted) - Neurologic CN 2-12 grossly intact - Psychiatric oriented to person, oriented to place, speech is normal - Labs 12/22/16 07:42 12/22/16 02:43 Diabetes panel 12/22/16 Range/Units 02:43 Sodium 135 L (136-145) mEq/L Potassium 5.4 H (3.5-4.5) mEq/L Chloride 103 (98-109) mEq/L Carbon Dioxide 22 (19-29) mEq/L BUN 58 H (8-26) mg/dL Creatinine 2.11 H (0.72-1.25) mg/dL Glucose 188 H (70-99) mg/dL Calcium 8.6 (8.6-10.8) mg/dL AST 16 (5-34) Units/L ALT 14 (0-55) Units/L Alkaline Phosphatase 135 H (38-126) Units/L Albumin 2.6 L (3.5-5.0) g/dL Calcium panel 12/22/16 Range/Units 02:43 Calcium 8.6 (8.6-10.8) mg/dL Albumin 2.6 L (3.5-5.0) g/dL Pituitary panel 12/22/16 Range/Units 02:43 Sodium 135 L (136-145) mEq/L Potassium 5.4 H (3.5-4.5) mEq/L Chloride 103 (98-109) mEq/L Carbon Dioxide 22 (19-29) mEq/L BUN 58 H (8-26) mg/dL Creatinine 2.11 H (0.72-1.25) mg/dL Glucose 188 H (70-99) mg/dL Calcium 8.6 (8.6-10.8) mg/dL Adrenal panel 12/22/16 Range/Units 02:43 Sodium 135 L (136-145) mEq/L Potassium 5.4 H (3.5-4.5) mEq/L Chloride 103 (98-109) mEq/L Carbon Dioxide 22 (19-29) mEq/L BUN 58 H (8-26) mg/dL Creatinine 2.11 H (0.72-1.25) mg/dL Glucose 188 H (70-99) mg/dL Calcium 8.6 (8.6-10.8) mg/dL Total Bilirubin 0.3 (0.2-1.2) mg/dL AST 16 (5-34) Units/L ALT 14 (0-55) Units/L Alkaline Phosphatase 135 H (38-126) Units/L Albumin 2.6 L (3.5-5.0) g/dL Consult Discharge Plan - Plan [facility]errals: [facility] [Primary Care Provider[facility] - - Attending Attestation I examined this patient and my medical decision-making was reviewed with the [employer]/PA/Advanced Practice Nurse/Resident Physician. I agree with the documented findings, disposition and treatment plan as described except to the extent set forth below.
[2016-12-22] MEDS ORDERED: 0.9 % Sodium Chloride 250 ML ONE (10:07)
[2016-12-22] MEDS: *HR* HYDROcodone/Acet 5/325 mg TABLET PO PRN (10:10)
[2016-12-22] MEDS: *HR* HYDROmorphone (PF) 1 MG/ML SYRINGE IVP PRN ×3 (10:39→20:53)
--- NOTE | 2016-12-22 13:00 | Urology - Consult Note ---
Date of Encounter: 12/22/16 Time of Encounter: 12:58 - Assessment and Plan (1) Clot retention of urine Current Visit: Yes Status: Acute Assessment and plan: Patient well known to the urology service. Has had bleeding complications in the recent past after nephrostomy tube placement. I personally reviewed the CT images from yesterday and did not appreciate a drastic change or urgent surgical issue. I placed a 3-way hematuria catheter and irrigated a moderate amount of clot out. Currently he is on CBI on a moderate drip. I recommend observing in the ICU overnight continuing CBI and irrigating as necessary. No further aggressive urologic management at this time. We'll follow closely and reevaluate in the morning. If possible, should decrease anticoagulation to minimize bleeding risk. His anemia may be secondary to bleeding from the urinary tract but is also probably anemia of chronic disease with his advanced prostate cancer. Urology CN:KAILEY Consult date: 12/22/16 Reason for consult Urology: Gross Hematuria History of present illness: patient well known to the urology service. advanced prostate cancer. left ureteral obstruction and nephrostomy tube placed but developed bleeding complications requiring prolonged hospitalization and transfusions. nephrostomy antegraded to a stent. pt was seen wed in the office and urine was clear. bleeding started yesterday. large blood and clots in the urine. Past Med Surg Social Fam HX - Past Medical History Medical history: arthritis, atrial fibrillation, cancer (metastatic prostate), COPD, coronary artery disease, CVA, diabetes (type II), GERD, hyperlipidemia, hypertension, renal disease (CKD III), valvular heart disease Psychiatric history: anxiety, depression - Past Surgical History Surgical History: coronary bypass (CABG), heart valve replacement, other (left nephrostomy tube placement) - Social History Smoking Status: Unknown if ever smoked Smokeless Tobacco Status: No Alcohol use: unknown Drug use: unknown - Family History Father Living Status: Hx Family Cardiac Disorders: Yes Medications and Allergies Acetaminophen [Tylenol] 325 mg PO BID PRN 10/17/15 [History] Allopurinol [Zyloprim 300 MG] 300 mg PO DAILY 10/17/15 [History] Ascorbic Acid [Vitamin C] 1,000 mg PO DAILY 10/17/15 [History] Carboxymethylcellulos/Glycerin [Refresh Optive Eye Drops] 1 drop OP QID [History] Docusate Sodium [Colace] 100 mg PO BID 10/17/15 [History] Insulin Glargine [Lantus] 14 unit SQ HS 10/17/15 [History] Ipratropium/Albuterol Neb [Duoneb] 3 ml IH Q6H PRN 10/17/15 [History] Modafinil [Provigil] 400 mg PO QAM 10/17/15 [History] Multivitamin [Multivitamins] 1 tab PO QAM 10/17/15 [History] Omeprazole [PriLOSEC] 40 mg PO DAILY 10/17/15 [History] Saliva Stimulant [Biotene Moisturizing Rinse] 5 spray PO BID 10/17/15 [History] Bicalutamide [Casodex] 50 mg PO DAILY 05/24/16 [History] Capsaicin 0.025% [Trixaicin] 1 appl TP DAILY PRN 05/24/16 [History] Pyridoxine HCl [Vitamin B-6] 100 mg PO DAILY 05/24/16 [History] Gabapentin [Neurontin] 300 mg PO TID 11/17/16 [History] Amlodipine [Norvasc] 5 mg PO DAILY #30 tablet 11/27/16 [Rx] Sertraline [Zoloft] 50 mg PO QAM #30 tablet 11/30/16 [Rx] Albuterol Sulfate [Proair Hfa] 1 puff IH Q6H PRN 12/20/16 [History] Amino Acids/Protein Hydrolys [Pro-Stat Awc Liquid Packet] 30 ml PO QAM 12/20/16 [History] Apixaban [Eliquis] 5 mg PO BID 12/20/16 [History] Aspirin Enteric Coated [Aspirin EC] 81 mg PO DAILY 12/20/16 [History] Atorvastatin [Lipitor] 40 mg PO HS 12/20/16 [History] Benzocaine/Menthol [Cepacol Sore Throat Lozenge] 1 lozenge PO Q6H PRN 12/20/16 [ History] Calcium Carbonate [Calcium] 1,000 mg PO BID 12/20/16 [History] Ferrous Gluconate 324 mg PO BID 12/20/16 [History] Furosemide [Lasix] 80 mg PO QAM 12/20/16 [History] Insulin LISPRO [HumaLOG] 2 - 12 units SQ ACHS 12/20/16 [History] Lisinopril 2.5 mg PO BID 12/20/16 [History] OxyCODONE Immed Rel [Roxicodone 5 MG] 5 mg PO Q4H PRN 12/20/16 [History] Tamsulosin [Flomax] 0.4 mg PO DAILY 12/20/16 [History] U-Lactin 1 appl TP BID 12/20/16 [History] Allergies IVP dye Allergy (Uncoded 10/17/15 06:47) Vomiting Review of Systems - Constitutional fatigue, weakness, no fever(s) - EENT Nose, mouth and throat: no dizziness - Cardiovascular no chest pain - Respiratory no cough - Gastrointestinal abdominal pain - Genitourinary hematuria - Musculoskeletal back pain - Integumentary no erythema - Neurological no confusion - Psychiatric no anxiety - Hematologic/Lymphatic easy bleeding Exam Initial Vital Signs Temp Pulse Resp BP Pulse Ox 98.8 F 98 16 103/57 98 12/20/16 19:24 12/20/16 19:24 12/20/16 19:24 12/20/16 19:24 12/20/16 19:24 - General physical appearance Present: well developed, no distress - Eyes Present: PERRL - ENT Present: normal nares - Neck Present: no masses - Respiratory Present: normal respiratory effort - Cardiovascular Cardiovascular exam IM: RRR - Abdomen Abdomen: Present: soft (obese) - Genitourinary normal penis with no external lesions - Neurologic Absent: disoriented, confused - Additional Findings 16 koo cath with dark maroon urine with clots. Urology Results - Labs 12/22/16 07:42 12/22/16 02:43 Abnormal lab results RBC 2.96 M/mcL (4.19-5.50) L 12/22/16 02:43 Hgb 8.2 g/dL (12.9-16.9) L 12/22/16 07:42 Hct 26.7 % (37.5-50.1) L 12/22/16 07:42 MCH 26.4 pg (28.0-33.3) L 12/22/16 02:43 MCHC 31.3 g/dL (31.6-35.5) L 12/22/16 02:43 RDW 16.4 % (11.5-14.5) H 12/22/16 02:43 Lymphocytes # 0.3 K/mcL (0.6-4.6) L 12/22/16 02:43 Nucleated RBCs/100 WBC 0.3 /100 WBC (0) H 12/22/16 02:43 ABG pH 7.28 pH Units (7.32-7.45) L 12/21/16 10:34 ABG pCO2 59 mmHg (35-45) H 12/21/16 10:34 ABG HCO3 27.7 mEQ/L (21-27) H 12/21/16 10:34 ABG Total CO2 29.5 mEq/L (20-26) H 12/21/16 10:34 Sodium 135 mEq/L (136-145) L 12/22/16 02:43 Potassium 5.4 mEq/L (3.5-4.5) H 12/22/16 02:43 BUN 58 mg/dL (8-26) H 12/22/16 02:43 Creatinine 2.11 mg/dL (0.72-1.25) H 12/22/16 02:43 Est GFR ( Amer) 38 (> 60) L 12/22/16 02:43 Est GFR (Non-Af Amer) 31 (> 60) L 12/22/16 02:43 BUN/Creatinine Ratio 27 (6-26) H 12/22/16 02:43 Glucose 188 mg/dL (70-99) H 12/22/16 02:43 POC Glucose 197 (58-89) H 12/22/16 12:32 Calculated Osmolality 301 (280-300) H 12/22/16 02:43 Alkaline Phosphatase 135 Units/L (38-126) H 12/22/16 02:43 Albumin 2.6 g/dL (3.5-5.0) L 12/22/16 02:43 Globulin 3.6 g/dL (2.4-3.5) H 12/22/16 02:43 Albumin/Globulin Ratio 0.7 (1.1-2.2) L 12/22/16 02:43 Urine Clarity Cloudy (Clear) A 12/21/16 04:00 Urine Protein 100 mg/dL (Neg-Trace) H 12/21/16 04:00 Urine Blood Large (Negative) H 12/21/16 04:00 Ur Leukocyte Esterase Large (Negative) H 12/21/16 04:00 Urine Microscopic RBC 50-100 per hpf (0-3) H 12/21/16 04:00 Urine Microscopic WBC 30-50 per hpf (0-3) H 12/21/16 04:00 Ur Squamous Epith Cells Moderate per lpf (None-Few) H 12/21/16 04:00 Urine Bacteria Many per hpf (None-Few) H 12/21/16 04:00 Ur Culture Indicated? YES (NO) A 12/21/16 04:00 Diabetes panel 12/22/16 Range/Units 02:43 Sodium 135 L (136-145) mEq/L Potassium 5.4 H (3.5-4.5) mEq/L Chloride 103 (98-109) mEq/L Carbon Dioxide 22 (19-29) mEq/L BUN 58 H (8-26) mg/dL Creatinine 2.11 H (0.72-1.25) mg/dL Glucose 188 H (70-99) mg/dL Calcium 8.6 (8.6-10.8) mg/dL AST 16 (5-34) Units/L ALT 14 (0-55) Units/L Alkaline Phosphatase 135 H (38-126) Units/L Albumin 2.6 L (3.5-5.0) g/dL Calcium panel 12/22/16 Range/Units 02:43 Calcium 8.6 (8.6-10.8) mg/dL Albumin 2.6 L (3.5-5.0) g/dL Pituitary panel 12/22/16 Range/Units 02:43 Sodium 135 L (136-145) mEq/L Potassium 5.4 H (3.5-4.5) mEq/L Chloride 103 (98-109) mEq/L Carbon Dioxide 22 (19-29) mEq/L BUN 58 H (8-26) mg/dL Creatinine 2.11 H (0.72-1.25) mg/dL Glucose 188 H (70-99) mg/dL Calcium 8.6 (8.6-10.8) mg/dL Adrenal panel 12/22/16 Range/Units 02:43 Sodium 135 L (136-145) mEq/L Potassium 5.4 H (3.5-4.5) mEq/L Chloride 103 (98-109) mEq/L Carbon Dioxide 22 (19-29) mEq/L BUN 58 H (8-26) mg/dL Creatinine 2.11 H (0.72-1.25) mg/dL Glucose 188 H (70-99) mg/dL Calcium 8.6 (8.6-10.8) mg/dL Total Bilirubin 0.3 (0.2-1.2) mg/dL AST 16 (5-34) Units/L ALT 14 (0-55) Units/L Alkaline Phosphatase 135 H (38-126) Units/L Albumin 2.6 L (3.5-5.0) g/dL All other labs normal. Procedures:Urology - Catheter Insertion (Urinary) Bladder Scan/Ultrasound used before catheterization: No Estimated amount of urin (mLs): 100 Preparation: Povidone-Iodine Type of catheter inserted: 3 way Catheter Marshallese Size: 24 Topical anesthesia used: No Results: successfully catheterized-immediate flow Urine Appearance: Hematuria Patient tolerated procedure: well Complications: none Additional comments: irrigated ~60 cc clot from bladder but irrigated fairly clear after. moderate drip CBI started. Consult Discharge Plan - Plan [facility]errals: [facility] [Primary Care Provider] -
[2016-12-22 17:54] LABS: Hematocrit 28.8 % (37.5-50.1); Hemoglobin 9.3 g/dL (12.9-16.9)
[2016-12-22] MEDS ORDERED: Vancomycin 2,000 MG in D5% in Water 500 ML IVPB SCH (18:00)
[2016-12-22] MEDS: Insulin DETEMIR 100 UNIT/ML X5UNITS SQ SCH (20:01)
[2016-12-22 22:20] LABS: Hematocrit 29.1 % (37.5-50.1); Hemoglobin 9.1 g/dL (12.9-16.9)
[2016-12-23] MEDS: Ipratropium/Albuterol Neb 3 ML IH SCH ×6 (00:39→21:28)
[2016-12-23 03:31] LABS: Basophils % 0.2 %; Eosinophils # 0.2 K/mcL (0.0-0.6); Eosinophils % 1.8 %; Hematocrit 29.2 % (37.5-50.1); Hemoglobin 9.2 g/dL (12.9-16.9); Immature Granulocytes % 0.7 % (0-4); Lymphocytes # 0.7 K/mcL (0.6-4.6); Lymphocytes % 6.3 %; Mean Corpuscular HGB Conc 31.5 g/dL (31.6-35.5); Mean Corpuscular Hemoglobin 26.7 pg (28.0-33.3); Mean Corpuscular Volume 84.6 fL (83.0-100.0); Mean Platelet Volume 9.9 fL (9.4-12.4); Monocytes # 0.9 K/mcL (0.0-1.3); Monocytes % 8.9 %; Neutrophils # 8.4 K/mcL (1.6-8.9); Nucleated Red Blood Cells 0.6 /100 WBC (0); Platelet Count 192 K/mcL (140-400); Red Blood Count 3.45 M/mcL (4.19-5.50); Red Cell Distribution Width 16.3 % (11.5-14.5); Segmented Neutrophils % 82.1 %
[2016-12-23 03:42] LABS: Calcium 9.1 mg/dL (8.6-10.8); Potassium 5.2 mEq/L (3.5-4.5)
[2016-12-23] MEDS: *HR* HYDROmorphone (PF) 1 MG/ML SYRINGE IVP PRN ×3 (03:47→14:57)
[2016-12-23] MEDS: Pantoprazole 40 MG VIAL IVP SCH ×2 (05:07→18:25)
[2016-12-23] MEDS: Cefepime HCl 1,000 MG in D5% in Water (Mini-Bag+) 100 ML IVPB SCH ×2 (05:07→18:26)
[2016-12-23] MEDS: Insulin LISPRO 300 UNITS/3 ML VIAL SQ SCH ×4 (08:32→20:30)
--- NOTE | 2016-12-23 09:16 | Urology Progress Note ---
Date of Encounter: 12/23/16 Time of Encounter: 09:14 - Assessment and Plan (1) Gross hematuria Current Visit: No Status: Acute Assessment and plan: resolving. continue CBI. hold major anticoag secondary to risk of bleeding at this time. (2) Prostate cancer Current Visit: No Status: Acute Progress Note Narrative: Travis is a 71 y/o male with metastatic prostate cancer. patient sp hematuria cath placement yesterday. urine clear on slow irrigation this am. had to be irrigated overnight. Objective Initial Vital Signs Temp Pulse Resp BP Pulse Ox 98.8 F 98 16 103/57 98 12/20/16 19:24 12/20/16 19:24 12/20/16 19:24 12/20/16 19:24 12/20/16 19:24 - General physical appearance Present: well developed - Abdomen Present: soft - Genitourinary Present: other (urine slight pink in tubing) - Labs 12/23/16 03:21 12/23/16 03:21 Diabetes panel 12/23/16 Range/Units 03:21 Sodium 138 (136-145) mEq/L Potassium 5.2 H (3.5-4.5) mEq/L Chloride 105 (98-109) mEq/L Carbon Dioxide 26 (19-29) mEq/L BUN 51 H (8-26) mg/dL Creatinine 1.86 H (0.72-1.25) mg/dL Glucose 132 H (70-99) mg/dL Calcium 9.1 (8.6-10.8) mg/dL Calcium panel 12/23/16 Range/Units 03:21 Calcium 9.1 (8.6-10.8) mg/dL Pituitary panel 12/23/16 Range/Units 03:21 Sodium 138 (136-145) mEq/L Potassium 5.2 H (3.5-4.5) mEq/L Chloride 105 (98-109) mEq/L Carbon Dioxide 26 (19-29) mEq/L BUN 51 H (8-26) mg/dL Creatinine 1.86 H (0.72-1.25) mg/dL Glucose 132 H (70-99) mg/dL Calcium 9.1 (8.6-10.8) mg/dL Adrenal panel 12/23/16 Range/Units 03:21 Sodium 138 (136-145) mEq/L Potassium 5.2 H (3.5-4.5) mEq/L Chloride 105 (98-109) mEq/L Carbon Dioxide 26 (19-29) mEq/L BUN 51 H (8-26) mg/dL Creatinine 1.86 H (0.72-1.25) mg/dL Glucose 132 H (70-99) mg/dL Calcium 9.1 (8.6-10.8) mg/dL Consult Discharge Plan - Plan Referrals: [facility] [Primary Care Provider] -
--- NOTE | 2016-12-23 09:45 | Pulmonology Progress Note ---
<Giovanni Elizabeth - Last Filed: 12/23/16 09:42> Date of Encounter: 12/23/16 Time of Encounter: 09:42 Assessment and Plan (1) Acute on chronic respiratory failure with hypoxia and hypercapnia Current Visit: Yes Status: Resolved Clinically patient's respiratory status has improved, currently on 3L of nasal cannula and satting 95%, he is more alert than yesterday. Likely this was multifactorial from symptomatic anemia, history of obstructive sleep apnea, COPD and obesity hypoventilation syndrome, chest x-ray showed chronic elevation of right hemidiaphragm and small bilateral stable pleural effusions, initial ABG showed respiratory acidosis with pH of 7.23, PCO2 of 66 and bicarbonate of 27.6, after use of BiPAP patient's ABG showed improvement, patient will continue to use BiPAP prn and at the bedtime. Continue bronchodialators, NC. (2) Acute blood loss anemia Current Visit: Yes Status: Acute After 3 units of PRBC patient's hemoglobin improved from 6.6 to 8.6, his hemoglobin has been stable at 9, he had a normal bowel movement w/o bleeding. Spoke with the surgery team, at this time patient is not required to have urgent upper or lower endoscopy, this will be done as outpatient. This morning patient had a significant hematuria in his koo bag, in recent hospitalization 3 weeks ago, patient received 5 units of PRBC for acute blood loss anemia from bleeding into left-sided nephrostomy tube, soon after the tube was removed and antegrade ureteric stent was placed, this time abdominal CT scan without contrast showed stable retroperitoneal and pelvic adenopathy with no mentioning of hydronephrosis, with a history of recent hydronephrosis and metastatic prostate cancer currently with gross hematuria. Urology consulted and started CBI yesterday which will be continued today. AM CBC (3) Gross hematuria Current Visit: Yes Status: Acute Yesterday, patient had a significant hematuria in his koo bag, in recent hospitalization 3 weeks ago, patient received 5 units of PRBC for acute blood loss anemia from bleeding into left-sided nephrostomy tube, soon after the tube was removed and antegrade ureteric stent was placed, this time abdominal CT scan without contrast showed stable retroperitoneal and pelvic adenopathy with no mentioning of hydronephrosis, left-sided ureteral stent remains in place and terminates in the urinary bladder. With a recent history of hydronephrosis and metastatic prostate cancer now with gross hematuria. Continues to have hematuria with clots, but decreased compared to yesterday. He has less frequent intermittent bladder spasms. Continue CBI. Urology on Board. (4) Acute encephalopathy Current Visit: Yes Status: Resolved Resolved, alert oriented x3. Patient's mental status is at baseline, his change in mental status was likely due to hypercarbia from respiratory acidosis and symptomatic anemia, his hypercarbia improved after use of BiPAP and his hemoglobin improved after 3 units of PRBC transfusion, continue to closely monitor his mental status in ICU. (5) UTI (urinary tract infection) Current Visit: Yes Status: Acute Urine culture this time came back gram-negative ulysses, urine culture from 2016 showed Pseudomonas sensitive to cefepime. Urine cultures shows pseudomoas sensitive to cefepime. Continue cefepime day 2 Qualifiers: Urinary tract infection type: acute cystitis Hematuria presence: with hematuria Qualified Code(s): N30.01 - Acute cystitis with hematuria (6) Acute worsening of stage 3 chronic kidney disease Current Visit: Yes Status: Acute Recently diagnosed left sided hydronephrosis, s/p left side nephrostomy tube placement but it was removed and stent was placed in previous hospitalization, came in this time with acute on CKD III, pt has hx of metastatic prostate cancer , taking Flomax at home, possible post-renal GEORGE from obstruction, after koo placement more than 2.7 L of urine output recorded within the last 24 hours, his SCr improved from 2.54 to 1.86, con't to avoid nephrotoxic agents and closely monitor his renal function. (7) DMII (diabetes mellitus, type 2) Current Visit: Yes Status: Acute Recent HGB a1c is 5.6, glucose stable at this time, con't home dosage of levemir and accucheck ACHS with SSI. Qualifiers: Diabetes mellitus complication status: without complication Diabetes mellitus terminal computer operator insulin use: with terminal computer operator use Qualified Code(s): E11.9 - Type 2 diabetes mellitus without complications; Z79.4 - manager intermediate (current) use of insulin (8) History of atrial fibrillation Current Visit: Yes Status: Acute Currently Eliquis is on hold due to possible underlying acute blood loss anemia , his heart rate has been stable with HR less than 90, sinus, con't to closely monitor his VS. (9) DVT prophylaxis Current Visit: Yes Status: Acute IPC placed, held home med of Eliquis. (10) Prostate cancer Current Visit: Yes Status: Acute t sees Dr. Marcus in [facility], from recent oncology note, pt received lupron on 11/20/2016, f/u with his primary oncologist as outpt. (11) COPD (chronic obstructive pulmonary disease) Current Visit: No Status: Chronic Pt is chronic CO2 retainer, does not seem to be in exacerbation, pt received solu-medrol 125 mg IV x1 in the ER, currently on bipap prn and at bedtime, satting 95% on 3L of NC, con't oxygen support and duoneb ATC. Qualifiers: COPD type: emphysema Emphysema type: other Qualified Code(s): J43.8 - Other emphysema Subjective Principal diagnosis: Symptomatic anemia and acute on chronic respiratory failure Interval history: Patient continues to have bladder spasm but are not as frequent. He is awake alert and conversing well. No acute overnight events. Objective PUL Vital signs: Last Vital Signs Temp 98.4 F 12/23/16 07:58 Pulse 102 12/23/16 09:00 Resp 22 12/23/16 09:00 BP 105/64 12/23/16 09:00 Pulse Ox 96 12/23/16 09:00 General appearance: no acute distress, alert Eyes: nonicteric, other (only has left eye) ENT: oropharynx moist Mallampati (class): 3 Neck: no lymphadenopathy Effort: normal Auscultation: bilateral: clear Cardiovascular: irregular rhythm (tachycardia) Gastrointestinal: normoactive bowel sounds, soft, non-tender Integumentary: normal Extremities: no cyanosis, no edema, no clubbing Musculoskeletal: no deformities, other other (normal mental status, non-focal exam, CN II-XII normal, motor strength normal and symmetric, other (No right eye, left eye pupil round and reactive to light)) mood appropriate Results - Laboratory Findings CBC and BMP: 12/23/16 03:21 12/23/16 03:21 ABG ABG pH 7.28 pH Units (7.32-7.45) L 12/21/16 10:34 ABG pCO2 59 mmHg (35-45) H 12/21/16 10:34 ABG pO2 86 mmHg (85-104) 12/21/16 10:34 ABG O2 Saturation 95 % (95-98) 12/21/16 10:34 Abnormal lab findings: Abnormal lab results RBC 3.45 M/mcL (4.19-5.50) L 12/23/16 03:21 Hgb 9.2 g/dL (12.9-16.9) L 12/23/16 03:21 Hct 29.2 % (37.5-50.1) L 12/23/16 03:21 MCH 26.7 pg (28.0-33.3) L 12/23/16 03:21 MCHC 31.5 g/dL (31.6-35.5) L 12/23/16 03:21 RDW 16.3 % (11.5-14.5) H 12/23/16 03:21 Nucleated RBCs/100 WBC 0.6 /100 WBC (0) H 12/23/16 03:21 ABG pH 7.28 pH Units (7.32-7.45) L 12/21/16 10:34 ABG pCO2 59 mmHg (35-45) H 12/21/16 10:34 ABG HCO3 27.7 mEQ/L (21-27) H 12/21/16 10:34 ABG Total CO2 29.5 mEq/L (20-26) H 12/21/16 10:34 Potassium 5.2 mEq/L (3.5-4.5) H 12/23/16 03:21 BUN 51 mg/dL (8-26) H 12/23/16 03:21 Creatinine 1.86 mg/dL (0.72-1.25) H 12/23/16 03:21 Est GFR ( Amer) 44 (> 60) L 12/23/16 03:21 Est GFR (Non-Af Amer) 36 (> 60) L 12/23/16 03:21 BUN/Creatinine Ratio 27 (6-26) H 12/23/16 03:21 Glucose 132 mg/dL (70-99) H 12/23/16 03:21 POC Glucose 145 (58-89) H 12/23/16 07:41 Calculated Osmolality 302 (280-300) H 12/23/16 03:21 Alkaline Phosphatase 135 Units/L (38-126) H 12/22/16 02:43 Albumin 2.6 g/dL (3.5-5.0) L 12/22/16 02:43 Globulin 3.6 g/dL (2.4-3.5) H 12/22/16 02:43 Albumin/Globulin Ratio 0.7 (1.1-2.2) L 12/22/16 02:43 Urine Clarity Cloudy (Clear) A 12/21/16 04:00 Urine Protein 100 mg/dL (Neg-Trace) H 12/21/16 04:00 Urine Blood Large (Negative) H 12/21/16 04:00 Ur Leukocyte Esterase Large (Negative) H 12/21/16 04:00 Urine Microscopic RBC 50-100 per hpf (0-3) H 12/21/16 04:00 Urine Microscopic WBC 30-50 per hpf (0-3) H 12/21/16 04:00 Ur Squamous Epith Cells Moderate per lpf (None-Few) H 12/21/16 04:00 Urine Bacteria Many per hpf (None-Few) H 12/21/16 04:00 Ur Culture Indicated? YES (NO) A 12/21/16 04:00 - Microbiology Findings Microbiology Findings: Microbiology, Last 48 Hours 12/21/16 04:00 Urine Culture - Final Urine,Random-Not Preferred Pseudomonas aeruginosa - Clinical Findings Intake & Output: Intake & Output 12/22/16 12/23/16 12/23/16 23:59 07:59 15:59 Intake Total 200 / 200 100 / 100 360 / 360 Output Total 6675 / 6675 1500 / 1500 Balance -6475 / -6475 -1400 / -1400 360 / 360 Weight 136.9 kg - VTE Documentation of Mechanical Device: Intermittent pneumatic compression device Consult Discharge Plan - Plan [facility]Primary Care Provider[facility] - <Bhavna Correia - Last Filed: 12/23/16 11:11> Objective PUL Vital signs: Last Vital Signs Temp 98.4 F 12/23/16 07:58 Pulse 94 12/23/16 10:00 Resp 16 12/23/16 10:00 BP 127/78 12/23/16 10:00 Pulse Ox 96 12/23/16 10:00 Results - Laboratory Findings CBC and BMP: 12/23/16 03:21 12/23/16 03:21 ABG ABG pH 7.28 pH Units (7.32-7.45) L 12/21/16 10:34 ABG pCO2 59 mmHg (35-45) H 12/21/16 10:34 ABG pO2 86 mmHg (85-104) 12/21/16 10:34 ABG O2 Saturation 95 % (95-98) 12/21/16 10:34 Abnormal lab findings: Abnormal lab results RBC 3.45 M/mcL (4.19-5.50) L 12/23/16 03:21 Hgb 9.2 g/dL (12.9-16.9) L 12/23/16 03:21 Hct 29.2 % (37.5-50.1) L 12/23/16 03:21 MCH 26.7 pg (28.0-33.3) L 12/23/16 03:21 MCHC 31.5 g/dL (31.6-35.5) L 12/23/16 03:21 RDW 16.3 % (11.5-14.5) H 12/23/16 03:21 Nucleated RBCs/100 WBC 0.6 /100 WBC (0) H 12/23/16 03:21 ABG pH 7.28 pH Units (7.32-7.45) L 12/21/16 10:34 ABG pCO2 59 mmHg (35-45) H 12/21/16 10:34 ABG HCO3 27.7 mEQ/L (21-27) H 12/21/16 10:34 ABG Total CO2 29.5 mEq/L (20-26) H 12/21/16 10:34 Potassium 5.2 mEq/L (3.5-4.5) H 12/23/16 03:21 BUN 51 mg/dL (8-26) H 12/23/16 03:21 Creatinine 1.86 mg/dL (0.72-1.25) H 12/23/16 03:21 Est GFR ( Amer) 44 (> 60) L 12/23/16 03:21 Est GFR (Non-Af Amer) 36 (> 60) L 12/23/16 03:21 BUN/Creatinine Ratio 27 (6-26) H 12/23/16 03:21 Glucose 132 mg/dL (70-99) H 12/23/16 03:21 POC Glucose 145 (58-89) H 12/23/16 07:41 Calculated Osmolality 302 (280-300) H 12/23/16 03:21 Alkaline Phosphatase 135 Units/L (38-126) H 12/22/16 02:43 Albumin 2.6 g/dL (3.5-5.0) L 12/22/16 02:43 Globulin 3.6 g/dL (2.4-3.5) H 12/22/16 02:43 Albumin/Globulin Ratio 0.7 (1.1-2.2) L 12/22/16 02:43 Urine Clarity Cloudy (Clear) A 12/21/16 04:00 Urine Protein 100 mg/dL (Neg-Trace) H 12/21/16 04:00 Urine Blood Large (Negative) H 12/21/16 04:00 Ur Leukocyte Esterase Large (Negative) H 12/21/16 04:00 Urine Microscopic RBC 50-100 per hpf (0-3) H 12/21/16 04:00 Urine Microscopic WBC 30-50 per hpf (0-3) H 12/21/16 04:00 Ur Squamous Epith Cells Moderate per lpf (None-Few) H 12/21/16 04:00 Urine Bacteria Many per hpf (None-Few) H 12/21/16 04:00 Ur Culture Indicated? YES (NO) A 12/21/16 04:00 - Microbiology Findings Microbiology Findings: Microbiology, Last 48 Hours 12/21/16 04:00 Urine Culture - Final Urine,Random-Not Preferred Pseudomonas aeruginosa - Clinical Findings Intake & Output: Intake & Output 12/22/16 12/23/16 12/23/16 23:59 07:59 15:59 Intake Total 200 / 200 100 / 100 360 / 360 Output Total 6675 / 6675 1500 / 1500 Balance -6475 / -6475 -1400 / -1400 360 / 360 Weight 136.9 kg - Attending Attestation I examined this patient and my medical decision-making was reviewed with the TYPISTS SUPERVISOR/PA/Advanced Practice Nurse/Resident Physician. I agree with the documented findings, disposition and treatment plan as described except to the extent set forth below. Patient seen and examined. Labs, radiology, chart personally reviewed. Agree with resident's history and physical, assessment, plan with following comments: BUCKLE SORTER: Patient follows commands, Pulmonary: Acceptable oxygenation and ventilation. Use NIV PRN. Cardiovascular: stable. No anticoagulation for A. fib at this time due to the risk of bleeding. GI: Nutrition per dietary and GI prophylaxis per routine Heme: DVT prophylaxis per routine. Monitor H&H ID: Continue antibiotic and plan to de-escalation Renal; urine out put and renal funtion reviewed. Appreciate urology consultation Endorcine: blood glucose is monitored Lines: all lines checked and no evidence of infections Skin: skin care to prevent pressure ulcers per nursing routine care Patient to be transferred to [facility].
[2016-12-23] MEDS ORDERED: 0.9 % Sodium Chloride 1,000 ML ONE ×2 (15:10→21:00)
[2016-12-23] MEDS: Insulin DETEMIR 100 UNIT/ML X5UNITS SQ SCH (20:29)
[2016-12-23] MEDS ORDERED: Benzonatate 100 MG CAPSULE PO PRN (22:37)
[2016-12-24] MEDS: Ipratropium/Albuterol Neb 3 ML IH SCH ×6 (00:48→20:38)
[2016-12-24] MEDS ORDERED: 0.9 % Sodium Chloride 1,000 ML ONE ×5 (01:11→18:33)
[2016-12-24 03:16] LABS: Basophils % 0.4 %; Eosinophils # 0.5 K/mcL (0.0-0.6); Eosinophils % 5.9 %; Hematocrit 28.2 % (37.5-50.1); Hemoglobin 8.8 g/dL (12.9-16.9); Immature Granulocytes % 0.7 % (0-4); Lymphocytes # 0.9 K/mcL (0.6-4.6); Lymphocytes % 11.5 %; Mean Corpuscular HGB Conc 31.2 g/dL (31.6-35.5); Mean Corpuscular Hemoglobin 26.4 pg (28.0-33.3); Mean Corpuscular Volume 84.7 fL (83.0-100.0); Mean Platelet Volume 10.5 fL (9.4-12.4); Monocytes # 0.7 K/mcL (0.0-1.3); Monocytes % 9.7 %; Neutrophils # 5.5 K/mcL (1.6-8.9); Platelet Count 194 K/mcL (140-400); Red Blood Count 3.33 M/mcL (4.19-5.50); Red Cell Distribution Width 16.4 % (11.5-14.5); Segmented Neutrophils % 71.8 %
[2016-12-24 03:32] LABS: Calcium 9.1 mg/dL (8.6-10.8); Potassium 4.9 mEq/L (3.5-4.5)
[2016-12-24] MEDS: Cefepime HCl 1,000 MG in D5% in Water (Mini-Bag+) 100 ML IVPB SCH ×2 (05:02→17:54)
[2016-12-24] MEDS: Pantoprazole 40 MG VIAL IVP SCH ×2 (05:03→17:54)
[2016-12-24] MEDS: Insulin LISPRO 300 UNITS/3 ML VIAL SQ SCH ×4 (08:22→21:36)
--- NOTE | 2016-12-24 08:39 | Urology Progress Note ---
Date of Encounter: 12/24/16 Time of Encounter: 08:37 - Assessment and Plan (1) Gross hematuria Current Visit: Yes Status: Acute Assessment and plan: keep catheter in at this time. hgb stable. (2) Prostate cancer Current Visit: Yes Status: Acute Progress Note Narrative: patient sleeping this am. urine clear off irrigation today. had multiple spasms and clots yesterday afternoon and evening. Objective Initial Vital Signs Temp Pulse Resp BP Pulse Ox 98.8 F 98 16 103/57 98 12/20/16 19:24 12/20/16 19:24 12/20/16 19:24 12/20/16 19:24 12/20/16 19:24 - General physical appearance Present: well developed - Abdomen Present: soft - Labs 12/24/16 03:09 12/24/16 03:09 Diabetes panel 12/24/16 Range/Units 03:09 Sodium 140 (136-145) mEq/L Potassium 4.9 H (3.5-4.5) mEq/L Chloride 105 (98-109) mEq/L Carbon Dioxide 27 (19-29) mEq/L BUN 39 H D (8-26) mg/dL Creatinine 1.47 H (0.72-1.25) mg/dL Glucose 107 H (70-99) mg/dL Calcium 9.1 (8.6-10.8) mg/dL Calcium panel 12/24/16 Range/Units 03:09 Calcium 9.1 (8.6-10.8) mg/dL Pituitary panel 12/24/16 Range/Units 03:09 Sodium 140 (136-145) mEq/L Potassium 4.9 H (3.5-4.5) mEq/L Chloride 105 (98-109) mEq/L Carbon Dioxide 27 (19-29) mEq/L BUN 39 H D (8-26) mg/dL Creatinine 1.47 H (0.72-1.25) mg/dL Glucose 107 H (70-99) mg/dL Calcium 9.1 (8.6-10.8) mg/dL Adrenal panel 12/24/16 Range/Units 03:09 Sodium 140 (136-145) mEq/L Potassium 4.9 H (3.5-4.5) mEq/L Chloride 105 (98-109) mEq/L Carbon Dioxide 27 (19-29) mEq/L BUN 39 H D (8-26) mg/dL Creatinine 1.47 H (0.72-1.25) mg/dL Glucose 107 H (70-99) mg/dL Calcium 9.1 (8.6-10.8) mg/dL - VTE Documentation of Mechanical Device: Intermittent pneumatic compression device Consult Discharge Plan - Plan [facility]errals: [facility] [Primary Care Provider] -
--- NOTE | 2016-12-24 10:15 | Pulmonology Progress Note ---
<Giovanni Elizabeth - Last Filed: 12/24/16 15:03> Date of Encounter: 12/24/16 Time of Encounter: 10:14 Assessment and Plan (1) Acute on chronic respiratory failure with hypoxia and hypercapnia Current Visit: Yes Status: Resolved Clinically patient's respiratory status has improved, currently on 3L of nasal cannula and satting 95%, he is more alert than yesterday. Likely this was multifactorial from symptomatic anemia, history of obstructive sleep apnea, COPD and obesity hypoventilation syndrome, chest x-ray showed chronic elevation of right hemidiaphragm and small bilateral stable pleural effusions, initial ABG showed respiratory acidosis with pH of 7.23, PCO2 of 66 and bicarbonate of 27.6, after use of BiPAP patient's ABG showed improvement, patient will continue to use BiPAP prn and at the bedtime. Continue bronchodialators, NC. (2) Acute blood loss anemia Current Visit: Yes Status: Acute After 3 units of PRBC patient's hemoglobin improved from 6.6 to 8.6, his hemoglobin has been stable at 9, he had a normal bowel movement w/o bleeding. Spoke with the surgery team, at this time patient is not required to have urgent upper or lower endoscopy, this will be done as outpatient. This morning patient had a significant hematuria in his koo bag, in recent hospitalization 3 weeks ago, patient received 5 units of PRBC for acute blood loss anemia from bleeding into left-sided nephrostomy tube, soon after the tube was removed and antegrade ureteric stent was placed, this time abdominal CT scan without contrast showed stable retroperitoneal and pelvic adenopathy with no mentioning of hydronephrosis, with a history of recent hydronephrosis and metastatic prostate cancer currently with gross hematuria. Urology consulted and patient underwent CBI. HGb stable. AM CBC (3) Gross hematuria Current Visit: Yes Status: Acute Yesterday, patient had a significant hematuria in his koo bag, in recent hospitalization 3 weeks ago, patient received 5 units of PRBC for acute blood loss anemia from bleeding into left-sided nephrostomy tube, soon after the tube was removed and antegrade ureteric stent was placed, this time abdominal CT scan without contrast showed stable retroperitoneal and pelvic adenopathy with no mentioning of hydronephrosis, left-sided ureteral stent remains in place and terminates in the urinary bladder. With a recent history of hydronephrosis and metastatic prostate cancer now with gross hematuria. Continues to have hematuria with clots, but decreased compared to yesterday. He has less frequent intermittent bladder spasms. Under went CBI. plan is to keep koo in. Continue AZO. Urology on Board. (4) Acute encephalopathy Current Visit: Yes Status: Resolved Resolved, alert oriented x3. Patient's mental status is at baseline, his change in mental status was likely due to hypercarbia from respiratory acidosis and symptomatic anemia, his hypercarbia improved after use of BiPAP and his hemoglobin improved after 3 units of PRBC transfusion, continue to closely monitor his mental status in ICU. (5) UTI (urinary tract infection) Current Visit: Yes Status: Acute Urine culture this time came back gram-negative ulysses, urine culture from 2016 showed Pseudomonas sensitive to cefepime. Urine cultures shows pseudomoas sensitive to cefepime. Continue cefepime day 3 Qualifiers: Urinary tract infection type: acute cystitis Hematuria presence: with hematuria Qualified Code(s): N30.01 - Acute cystitis with hematuria (6) Acute worsening of stage 3 chronic kidney disease Current Visit: Yes Status: Acute improving. Recently diagnosed left sided hydronephrosis, s/p left side nephrostomy tube placement but it was removed and stent was placed in previous hospitalization, came in this time with acute on CKD III, pt has hx of metastatic prostate cancer, taking Flomax at home, possible post-renal GEORGE from obstruction, after koo placement more than 2.7 L of urine output recorded within the last 24 hours, his SCr improved from 2.54 to 1.47, con't to avoid nephrotoxic agents and closely monitor his renal function. (7) DMII (diabetes mellitus, type 2) Current Visit: Yes Status: Acute Recent HGB a1c is 5.6, glucose stable at this time, con't home dosage of levemir and accucheck ACHS with SSI. 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 (9) DVT prophylaxis Current Visit: Yes Status: Acute IPC placed, held home med of Eliquis. (10) Prostate cancer Current Visit: Yes Status: Acute t sees Dr. Marcus in [facility], from recent oncology note, pt received lupron on 11/20/2016, f/u with his primary oncologist as outpt. (11) COPD (chronic obstructive pulmonary disease) Current Visit: No Status: Chronic Pt is chronic CO2 retainer, does not seem to be in exacerbation, pt received solu-medrol 125 mg IV x1 in the ER, currently on bipap prn and at bedtime, satting 95% on 3L of NC, con't oxygen support and duoneb ATC. Qualifiers: COPD type: emphysema Emphysema type: other Qualified Code(s): J43.8 - Other emphysema (12) Depression Current Visit: Yes Status: Acute hx of depression patient appears to be depressed today. resume home zoloft. Qualifiers: Depression Type: major depressive disorder Major depression recurrence: recurrent Active/Remission status: remission status unspecified Qualified Code(s): F33.9 - Major depressive disorder, recurrent, unspecified Subjective Principal diagnosis: Symptomatic anemia and acute on chronic respiratory failure Interval history: Patient continues to have bladder spasm but are not as frequent. He is awake alert and conversing well. No acute overnight events. Objective PUL Vital signs: Last Vital Signs Temp 98.1 F 12/24/16 07:44 Pulse 93 12/24/16 09:00 Resp 22 12/24/16 09:00 BP 140/89 12/24/16 09:00 Pulse Ox 95 12/24/16 09:00 Results - Laboratory Findings CBC and BMP: 12/24/16 03:09 12/24/16 03:09 ABG ABG pH 7.28 pH Units (7.32-7.45) L 12/21/16 10:34 ABG pCO2 59 mmHg (35-45) H 12/21/16 10:34 ABG pO2 86 mmHg (85-104) 12/21/16 10:34 ABG O2 Saturation 95 % (95-98) 12/21/16 10:34 Abnormal lab findings: Abnormal lab results RBC 3.33 M/mcL (4.19-5.50) L 12/24/16 03:09 Hgb 8.8 g/dL (12.9-16.9) L 12/24/16 03:09 Hct 28.2 % (37.5-50.1) L 12/24/16 03:09 MCH 26.4 pg (28.0-33.3) L 12/24/16 03:09 MCHC 31.2 g/dL (31.6-35.5) L 12/24/16 03:09 RDW 16.4 % (11.5-14.5) H 12/24/16 03:09 Nucleated RBCs/100 WBC 0.6 /100 WBC (0) H 12/23/16 03:21 ABG pH 7.28 pH Units (7.32-7.45) L 12/21/16 10:34 ABG pCO2 59 mmHg (35-45) H 12/21/16 10:34 ABG HCO3 27.7 mEQ/L (21-27) H 12/21/16 10:34 ABG Total CO2 29.5 mEq/L (20-26) H 12/21/16 10:34 Potassium 4.9 mEq/L (3.5-4.5) H 12/24/16 03:09 BUN 39 mg/dL (8-26) H D 12/24/16 03:09 Creatinine 1.47 mg/dL (0.72-1.25) H 12/24/16 03:09 Est GFR ( Amer) 58 (> 60) L 12/24/16 03:09 Est GFR (Non-Af Amer) 48 (> 60) L 12/24/16 03:09 BUN/Creatinine Ratio 27 (6-26) H 12/24/16 03:09 Glucose 107 mg/dL (70-99) H 12/24/16 03:09 POC Glucose 130 (58-89) H 12/24/16 07:14 Alkaline Phosphatase 135 Units/L (38-126) H 12/22/16 02:43 Albumin 2.6 g/dL (3.5-5.0) L 12/22/16 02:43 Globulin 3.6 g/dL (2.4-3.5) H 12/22/16 02:43 Albumin/Globulin Ratio 0.7 (1.1-2.2) L 12/22/16 02:43 Urine Clarity Cloudy (Clear) A 12/21/16 04:00 Urine Protein 100 mg/dL (Neg-Trace) H 12/21/16 04:00 Urine Blood Large (Negative) H 12/21/16 04:00 Ur Leukocyte Esterase Large (Negative) H 12/21/16 04:00 Urine Microscopic RBC 50-100 per hpf (0-3) H 12/21/16 04:00 Urine Microscopic WBC 30-50 per hpf (0-3) H 12/21/16 04:00 Ur Squamous Epith Cells Moderate per lpf (None-Few) H 12/21/16 04:00 Urine Bacteria Many per hpf (None-Few) H 12/21/16 04:00 Ur Culture Indicated? YES (NO) A 12/21/16 04:00 - Microbiology Findings Microbiology Findings: Microbiology, Last 48 Hours 12/21/16 04:00 Urine Culture - Final Urine,Random-Not Preferred Pseudomonas aeruginosa - Clinical Findings Intake & Output: Intake & Output 12/23/16 12/24/16 12/24/16 23:59 07:59 15:59 Intake Total 800 / 800 100 / 100 Output Total 1950 / 1950 2100 / 2100 Balance -1150 / -1150 -1999 / -1999 - VTE Documentation of Mechanical Device: Intermittent pneumatic compression device Consult Discharge Plan - Plan [facility]Primary Care Provider[facility] - <Bhavna Correia - Last Filed: 12/24/16 18:26> Objective PUL Vital signs: Last Vital Signs Temp 97.9 F 12/24/16 11:47 Pulse 89 12/24/16 12:00 Resp 22 12/24/16 12:00 BP 137/86 12/24/16 12:00 Pulse Ox 97 12/24/16 12:00 General appearance: appears uncomfortable Eyes: nonicteric ENT: oropharynx dry Neck: supple Effort: normal Auscultation: bilateral: diminished breath sounds Cardiovascular: irregular rhythm Gastrointestinal: normoactive bowel sounds Extremities: no cyanosis, edema normal mental status, non-focal exam depressed Results - Laboratory Findings CBC and BMP: 12/24/16 03:09 12/24/16 03:09 ABG ABG pH 7.28 pH Units (7.32-7.45) L 12/21/16 10:34 ABG pCO2 59 mmHg (35-45) H 12/21/16 10:34 ABG pO2 86 mmHg (85-104) 12/21/16 10:34 ABG O2 Saturation 95 % (95-98) 12/21/16 10:34 Abnormal lab findings: Abnormal lab results RBC 3.33 M/mcL (4.19-5.50) L 12/24/16 03:09 Hgb 8.8 g/dL (12.9-16.9) L 12/24/16 03:09 Hct 28.2 % (37.5-50.1) L 12/24/16 03:09 MCH 26.4 pg (28.0-33.3) L 12/24/16 03:09 MCHC 31.2 g/dL (31.6-35.5) L 12/24/16 03:09 RDW 16.4 % (11.5-14.5) H 12/24/16 03:09 Nucleated RBCs/100 WBC 0.6 /100 WBC (0) H 12/23/16 03:21 ABG pH 7.28 pH Units (7.32-7.45) L 12/21/16 10:34 ABG pCO2 59 mmHg (35-45) H 12/21/16 10:34 ABG HCO3 27.7 mEQ/L (21-27) H 12/21/16 10:34 ABG Total CO2 29.5 mEq/L (20-26) H 12/21/16 10:34 Potassium 4.9 mEq/L (3.5-4.5) H 12/24/16 03:09 BUN 39 mg/dL (8-26) H D 12/24/16 03:09 Creatinine 1.47 mg/dL (0.72-1.25) H 12/24/16 03:09 Est GFR ( Amer) 58 (> 60) L 12/24/16 03:09 Est GFR (Non-Af Amer) 48 (> 60) L 12/24/16 03:09 BUN/Creatinine Ratio 27 (6-26) H 12/24/16 03:09 Glucose 107 mg/dL (70-99) H 12/24/16 03:09 POC Glucose 169 (58-89) H 12/24/16 11:15 Alkaline Phosphatase 135 Units/L (38-126) H 12/22/16 02:43 Albumin 2.6 g/dL (3.5-5.0) L 12/22/16 02:43 Globulin 3.6 g/dL (2.4-3.5) H 12/22/16 02:43 Albumin/Globulin Ratio 0.7 (1.1-2.2) L 12/22/16 02:43 Urine Clarity Cloudy (Clear) A 12/21/16 04:00 Urine Protein 100 mg/dL (Neg-Trace) H 12/21/16 04:00 Urine Blood Large (Negative) H 12/21/16 04:00 Ur Leukocyte Esterase Large (Negative) H 12/21/16 04:00 Urine Microscopic RBC 50-100 per hpf (0-3) H 12/21/16 04:00 Urine Microscopic WBC 30-50 per hpf (0-3) H 12/21/16 04:00 Ur Squamous Epith Cells Moderate per lpf (None-Few) H 12/21/16 04:00 Urine Bacteria Many per hpf (None-Few) H 12/21/16 04:00 Ur Culture Indicated? YES (NO) A 12/21/16 04:00 - Microbiology Findings Microbiology Findings: Microbiology, Last 48 Hours 12/21/16 04:00 Urine Culture - Final Urine,Random-Not Preferred Pseudomonas aeruginosa - Clinical Findings Intake & Output: Intake & Output 12/23/16 12/24/16 12/24/16 23:59 07:59 15:59 Intake Total 800 / 800 100 / 100 670 / 670 Output Total 1950 / 1950 2100 / 2100 Balance -1150 / -1150 -1999 / -1999 670 / 670 - Attending Attestation I examined this patient and my medical decision-making was reviewed with the GINGER FARMER/PA/Advanced Practice Nurse/Resident Physician. I agree with the documented findings, disposition and treatment plan as described except to the extent set forth below. Patient seen and examined. Labs, radiology, chart personally reviewed. 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 Resume his antidepressant. Pulmonary: Acceptable oxygenation and ventilation. Continue BiPAP on-off and at night Cardiovascular: A. fib which is rate controlled GI: Nutrition per dietary and GI prophylaxis per routine Heme: DVT prophylaxis per routine. Monitor H&H and decision for endoscopy defer to endoscopy team. ID: Continue antibiotic and plan to de-escalation Renal; urine out put and renal funtion reviewed. Hematuria is improved and appreciate urology's input. Endorcine: blood glucose is monitored Lines: all lines checked and no evidence of infections Skin: skin care to prevent pressure ulcers per nursing routine care Due to his mental status did not have pain we will monitor in ICU today.
[2016-12-24] MEDS: *HR* HYDROmorphone (PF) 1 MG/ML SYRINGE IVP PRN (13:10)
--- NOTE | 2016-12-24 14:00 | Pulmonology Progress Note ---
Date of Encounter: 12/24/16 Time of Encounter: 13:53 Assessment and Plan (1) Acute on chronic respiratory failure with hypoxia and hypercapnia Current Visit: Yes Status: Resolved Clinically patient's respiratory status has improved, currently on 3L of nasal cannula and satting 95%, he is more alert than yesterday. Likely this was multifactorial from symptomatic anemia, history of obstructive sleep apnea, COPD and obesity hypoventilation syndrome, chest x-ray showed chronic elevation of right hemidiaphragm and small bilateral stable pleural effusions, initial ABG showed respiratory acidosis with pH of 7.23, PCO2 of 66 and bicarbonate of 27.6, after use of BiPAP patient's ABG showed improvement, patient will continue to use BiPAP prn and at the bedtime. Continue bronchodialators, NC. (2) Acute blood loss anemia Current Visit: Yes Status: Acute After 3 units of PRBC patient's hemoglobin improved from 6.6 to 8.6, his hemoglobin has been stable at 9, he had a normal bowel movement w/o bleeding. Spoke with the surgery team, at this time patient is not required to have urgent upper or lower endoscopy, this will be done as outpatient. This morning patient had a significant hematuria in his koo bag, in recent hospitalization 3 weeks ago, patient received 5 units of PRBC for acute blood loss anemia from bleeding into left-sided nephrostomy tube, soon after the tube was removed and antegrade ureteric stent was placed, this time abdominal CT scan without contrast showed stable retroperitoneal and pelvic adenopathy with no mentioning of hydronephrosis, with a history of recent hydronephrosis and metastatic prostate cancer currently with gross hematuria. Urology consulted and started CBI yesterday which will be continued today. AM CBC (3) Gross hematuria Current Visit: Yes Status: Acute Yesterday, patient had a significant hematuria in his koo bag, in recent hospitalization 3 weeks ago, patient received 5 units of PRBC for acute blood loss anemia from bleeding into left-sided nephrostomy tube, soon after the tube was removed and antegrade ureteric stent was placed, this time abdominal CT scan without contrast showed stable retroperitoneal and pelvic adenopathy with no mentioning of hydronephrosis, left-sided ureteral stent remains in place and terminates in the urinary bladder. With a recent history of hydronephrosis and metastatic prostate cancer now with gross hematuria. Continues to have hematuria with clots, but decreased compared to yesterday. He has less frequent intermittent bladder spasms. Continue CBI. Urology on Board. (4) Acute encephalopathy Current Visit: Yes Status: Resolved Resolved, alert oriented x3. Patient's mental status is at baseline, his change in mental status was likely due to hypercarbia from respiratory acidosis and symptomatic anemia, his hypercarbia improved after use of BiPAP and his hemoglobin improved after 3 units of PRBC transfusion, continue to closely monitor his mental status in ICU. (5) UTI (urinary tract infection) Current Visit: Yes Status: Acute Urine culture this time came back gram-negative ulysses, urine culture from 2016 showed Pseudomonas sensitive to cefepime. Urine cultures shows pseudomoas sensitive to cefepime. Continue cefepime day 2 Qualifiers: Urinary tract infection type: acute cystitis Hematuria presence: with hematuria Qualified Code(s): N30.01 - Acute cystitis with hematuria (6) Acute worsening of stage 3 chronic kidney disease Current Visit: Yes Status: Acute Recently diagnosed left sided hydronephrosis, s/p left side nephrostomy tube placement but it was removed and stent was placed in previous hospitalization, came in this time with acute on CKD III, pt has hx of metastatic prostate cancer , taking Flomax at home, possible post-renal GEORGE from obstruction, after koo placement more than 2.7 L of urine output recorded within the last 24 hours, his SCr improved from 2.54 to 1.86, con't to avoid nephrotoxic agents and closely monitor his renal function. (7) DMII (diabetes mellitus, type 2) Current Visit: Yes Status: Acute Recent HGB a1c is 5.6, glucose stable at this time, con't home dosage of levemir and accucheck ACHS with SSI. 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 (9) DVT prophylaxis Current Visit: Yes Status: Acute IPC placed, held home med of Eliquis. (10) Prostate cancer Current Visit: Yes Status: Acute t sees Dr. Marcus in [facility], from recent oncology note, pt received lupron on 11/20/2016, f/u with his primary oncologist as outpt. (11) COPD (chronic obstructive pulmonary disease) Current Visit: No Status: Chronic Pt is chronic CO2 retainer, does not seem to be in exacerbation, pt received solu-medrol 125 mg IV x1 in the ER, currently on bipap prn and at bedtime, satting 95% on 3L of NC, con't oxygen support and duoneb ATC. Qualifiers: COPD type: emphysema Emphysema type: other Qualified Code(s): J43.8 - Other emphysema Subjective Principal diagnosis: Symptomatic anemia and acute on chronic respiratory failure Interval history: Patient continues to have bladder spasm but are not as frequent. He is awake alert and conversing well. No acute overnight events. Objective PUL Vital signs: Last Vital Signs Temp 97.9 F 12/24/16 11:47 Pulse 94 12/24/16 13:00 Resp 18 12/24/16 13:00 BP 131/84 12/24/16 13:00 Pulse Ox 97 12/24/16 13:00 General appearance: no acute distress Eyes: nonicteric ENT: oropharynx moist Neck: supple Effort: normal Auscultation: bilateral: clear Percussion: bilateral: not dull Tactile fremitus: bilateral: normal Cardiovascular: irregular rhythm (afib) Gastrointestinal: normoactive bowel sounds, non-distended Integumentary: normal Extremities: no cyanosis, no edema, no clubbing Musculoskeletal: no deformities, ROM normal normal mental status, non-focal exam mood appropriate, affect normal Results - Laboratory Findings CBC and BMP: 12/24/16 03:09 12/24/16 03:09 ABG ABG pH 7.28 pH Units (7.32-7.45) L 12/21/16 10:34 ABG pCO2 59 mmHg (35-45) H 12/21/16 10:34 ABG pO2 86 mmHg (85-104) 12/21/16 10:34 ABG O2 Saturation 95 % (95-98) 12/21/16 10:34 Abnormal lab findings: Abnormal lab results RBC 3.33 M/mcL (4.19-5.50) L 12/24/16 03:09 Hgb 8.8 g/dL (12.9-16.9) L 12/24/16 03:09 Hct 28.2 % (37.5-50.1) L 12/24/16 03:09 MCH 26.4 pg (28.0-33.3) L 12/24/16 03:09 MCHC 31.2 g/dL (31.6-35.5) L 12/24/16 03:09 RDW 16.4 % (11.5-14.5) H 12/24/16 03:09 Nucleated RBCs/100 WBC 0.6 /100 WBC (0) H 12/23/16 03:21 ABG pH 7.28 pH Units (7.32-7.45) L 12/21/16 10:34 ABG pCO2 59 mmHg (35-45) H 12/21/16 10:34 ABG HCO3 27.7 mEQ/L (21-27) H 12/21/16 10:34 ABG Total CO2 29.5 mEq/L (20-26) H 12/21/16 10:34 Potassium 4.9 mEq/L (3.5-4.5) H 12/24/16 03:09 BUN 39 mg/dL (8-26) H D 12/24/16 03:09 Creatinine 1.47 mg/dL (0.72-1.25) H 12/24/16 03:09 Est GFR ( Amer) 58 (> 60) L 12/24/16 03:09 Est GFR (Non-Af Amer) 48 (> 60) L 12/24/16 03:09 BUN/Creatinine Ratio 27 (6-26) H 12/24/16 03:09 Glucose 107 mg/dL (70-99) H 12/24/16 03:09 POC Glucose 169 (58-89) H 12/24/16 11:15 Alkaline Phosphatase 135 Units/L (38-126) H 12/22/16 02:43 Albumin 2.6 g/dL (3.5-5.0) L 12/22/16 02:43 Globulin 3.6 g/dL (2.4-3.5) H 12/22/16 02:43 Albumin/Globulin Ratio 0.7 (1.1-2.2) L 12/22/16 02:43 Urine Clarity Cloudy (Clear) A 12/21/16 04:00 Urine Protein 100 mg/dL (Neg-Trace) H 12/21/16 04:00 Urine Blood Large (Negative) H 12/21/16 04:00 Ur Leukocyte Esterase Large (Negative) H 12/21/16 04:00 Urine Microscopic RBC 50-100 per hpf (0-3) H 12/21/16 04:00 Urine Microscopic WBC 30-50 per hpf (0-3) H 12/21/16 04:00 Ur Squamous Epith Cells Moderate per lpf (None-Few) H 12/21/16 04:00 Urine Bacteria Many per hpf (None-Few) H 12/21/16 04:00 Ur Culture Indicated? YES (NO) A 12/21/16 04:00 - Microbiology Findings Microbiology Findings: Microbiology, Last 48 Hours 12/21/16 04:00 Urine Culture - Final Urine,Random-Not Preferred Pseudomonas aeruginosa - Clinical Findings Intake & Output: Intake & Output 12/23/16 12/24/16 12/24/16 23:59 07:59 15:59 Intake Total 800 / 800 100 / 100 670 / 670 Output Total 1950 / 1950 2100 / 2100 Balance -1150 / -1150 -1999 / 670 / 670 - VTE Documentation of Mechanical Device: Intermittent pneumatic compression device Consult Discharge Plan - Plan [facility]errals: [facility] [Primary Care Provider[facility] -
[2016-12-24] MEDS ORDERED: 0.9 % Sodium Chloride 2,000 ML ONE (20:53)
[2016-12-24] MEDS: *HR* HYDROcodone/Acet 5/325 mg TABLET PO PRN (21:36)
[2016-12-24] MEDS: Insulin DETEMIR 100 UNIT/ML X5UNITS SQ SCH (21:36)
[2016-12-25] MEDS: Ipratropium/Albuterol Neb 3 ML IH SCH ×6 (00:07→20:38)
[2016-12-25] MEDS: *HR* HYDROmorphone (PF) 1 MG/ML SYRINGE IVP PRN (02:11)
[2016-12-25] MEDS ORDERED: 0.9 % Sodium Chloride 2,000 ML ONE (02:20)
[2016-12-25 07:00] LABS: BUN/Creatinine Ratio 22 (6-26); Calcium 9.5 mg/dL (8.6-10.8); Carbon Dioxide 26 mEq/L (19-29); Chloride 105 mEq/L (98-109); Glucose 103 mg/dL (70-99); Osmolality,Calculated 295 (280-300); Sodium 140 mEq/L (136-145); eGFR For African Americans > 60 (> 60); eGFR For Non-African Americans 57 (> 60)
[2016-12-25 07:02] LABS: Basophils % 0.5 %; Eosinophils # 0.6 K/mcL (0.0-0.6); Eosinophils % 7.9 %; Hematocrit 30.1 % (37.5-50.1); Hemoglobin 9.4 g/dL (12.9-16.9); Immature Granulocytes % 0.5 % (0-4); Lymphocytes # 0.8 K/mcL (0.6-4.6); Lymphocytes % 10.5 %; Mean Corpuscular HGB Conc 31.2 g/dL (31.6-35.5); Mean Corpuscular Hemoglobin 26.5 pg (28.0-33.3); Mean Corpuscular Volume 84.8 fL (83.0-100.0); Mean Platelet Volume 10.6 fL (9.4-12.4); Monocytes # 0.6 K/mcL (0.0-1.3); Monocytes % 8.3 %; Neutrophils # 5.4 K/mcL (1.6-8.9); Platelet Count 201 K/mcL (140-400); Red Blood Count 3.55 M/mcL (4.19-5.50); Red Cell Distribution Width 16.1 % (11.5-14.5); Segmented Neutrophils % 72.3 %
[2016-12-25 07:03] LABS: Blood Urea Nitrogen 27 mg/dL (8-26)
--- NOTE | 2016-12-25 07:10 | Pulmonology Progress Note ---
<Conrado Jane - Last Filed: 12/25/16 11:20> Date of Encounter: 12/25/16 Time of Encounter: 07:10 Assessment and Plan (1) Acute on chronic respiratory failure with hypoxia and hypercapnia Current Visit: Yes Status: Resolved Clinically patient's respiratory status has improved, almost back to his baseline, currently on 2L of nasal cannula and satting 94%. Likely this was multifactorial from symptomatic anemia, history of obstructive sleep apnea, COPD and obesity hypoventilation syndrome, initial chest x-ray showed chronic elevation of right hemidiaphragm and small bilateral stable pleural effusions, initial ABG showed respiratory acidosis with pH of 7.23, PCO2 of 66 and bicarbonate of 27.6, after use of BiPAP patient's ABG showed improvement, patient will continue to use BiPAP prn and at the bedtime and oxygen support along with duoneb q4hrs, will transfer him to medical floor today. (2) Acute blood loss anemia Current Visit: Yes Status: Acute S/p 4 units of PRBC during this hospital stay, patient's hemoglobin has been stable from 8.8 to 9.4 in last few days, he had a normal bowel movement yesterday and this morning, spoke with the surgery team last week, at this time patient is not required to have urgent upper or lower endoscopy, this will be done as outpatient. Patient had a significant hematuria in his koo bag 3 days ago, in recent hospitalization 3 weeks ago, patient received 5 units of PRBC for acute blood loss anemia from bleeding into left-sided nephrostomy tube, soon after the tube was removed and antegrade ureteric stent was placed, abdominal CT scan without contrast during this admission showed stable retroperitoneal and pelvic adenopathy with no mentioning of hydronephrosis, with a history of recent hydronephrosis and metastatic prostate cancer currently with gross hematuria, urology was consulted, he was started on CBI during weekend, now bloody urine has resolved and turning into yellow color with occasional blood clot, still on CBI, will follow urology's recommendation for his hematuria, con't to monitor his hemoglobin. (3) Gross hematuria Current Visit: Yes Status: Acute He was started on CBI over the weekend, urology has been following, now hematuria resolved, turning into yellow color with occasional blood clots noted , will follow urology's recommendation. (4) Acute encephalopathy Current Visit: Yes Status: Resolved Resolved, now patient's mental status is at baseline, his change in mental status was likely due to hypercarbia from respiratory acidosis and symptomatic anemia, his hypercarbia improved after use of BiPAP and his hemoglobin improved after 4 units of PRBC transfusion, continue to monitor his mental status. (5) UTI (urinary tract infection) Current Visit: Yes Status: Acute Urine culture came back Pseudomonas sensitive to cefepime, he was started on cefepime IV for total of 10 days for complicated UTI, today is day 4, pt is not septic. Qualifiers: Urinary tract infection type: acute cystitis Hematuria presence: with hematuria Qualified Code(s): N30.01 - Acute cystitis with hematuria (6) Acute worsening of stage 3 chronic kidney disease Current Visit: Yes Status: Acute Resolved. In recent hospitalization he was diagnosed with left sided hydronephrosis, s/p left side nephrostomy tube placement but it was removed and stent was placed, came in this time with acute on CKD III, pt has hx of metastatic prostate cancer, taking Flomax at home, possible post-renal GEORGE from obstruction, after koo placement, he has been having good urine output, more than 4.2 L of urine output recorded within the last 24 hours, his SCr improved from 1.47 to 1.25 today, con't to avoid nephrotoxic agents and closely monitor his renal function. (7) History of atrial fibrillation Current Visit: Yes Status: Acute Currently Eliquis is on hold due to possible underlying acute blood loss anemia , surgery signed off and stated to have outpt endoscopy, his heart rate has been stable with HR less than 90, sinus, con't to closely monitor his VS. (8) COPD (chronic obstructive pulmonary disease) Current Visit: Yes Status: Acute Pt is chronic CO2 retainer, does not seem to be in exacerbation, pt received solu-medrol 125 mg IV x1 in the ER, currently on bipap prn and at bedtime, satting 95% on 2L of NC, con't oxygen support and duoneb ATC. Qualifiers: Qualified Code(s): J44.9 - Chronic obstructive pulmonary disease, unspecified (9) Prostate cancer metastatic to intrapelvic lymph node Current Visit: Yes Status: Acute Pt sees Dr. Marcus in [facility], from recent oncology note, pt received lupron on 11/20/2016, f/u with his primary oncologist as outpt. (10) DM II (diabetes mellitus, type II), controlled Current Visit: Yes Status: Acute Recent HGB a1c is 5.6, glucose stable at this time, con't home dosage of levemir and accucheck ACHS with SSI. Qualifiers: Qualified Code(s): E11.9 - Type 2 diabetes mellitus without complications; Z79.4 - drip pumper (current) use of insulin (11) DVT prophylaxis Current Visit: Yes Status: Acute IPC placed. Subjective Principal diagnosis: Symptomatic anemia and acute on chronic respiratory failure Interval history: This is a 71 year old male with a history of metastatic prostate cancer who was brought [facility] [place] [facility] hospital for symptomatic acute blood loss anemia, acute on chronic respiratory failure and acute encephalopathy. Patient seen and examined. This morning patient was sitting comfortably in bed watching TV, he was eating breakfast, no overnight event, occasinal bladder spasms that was causing him to have lower abdominal pain, he states that his breathing is almost back to his baseline, denies productive cough or chest pain , normal bowel movement this AM. Objective PUL Vital signs: Last Vital Signs Temp 98.2 F 12/25/16 04:13 Pulse 88 12/25/16 06:00 Resp 23 12/25/16 06:00 BP 141/91 12/25/16 06:00 Pulse Ox 94 L 12/25/16 06:00 General appearance: no acute distress, alert Eyes: nonicteric, other (no right eye) ENT: oropharynx moist Neck: supple Effort: normal Auscultation: bilateral: diminished breath sounds (upper), rales (slightly at base) Cardiovascular: regular rate and rhythm Gastrointestinal: normoactive bowel sounds, soft, non-tender, non-distended Integumentary: normal Extremities: no cyanosis, edema (mild non-pitting pedal b/l) Musculoskeletal: no deformities normal mental status, non-focal exam, CN II-XII normal, motor strength normal and symmetric, other (left pupil round and reactive to light) mood appropriate, affect normal Results - Laboratory Findings CBC and BMP: 12/25/16 06:41 12/25/16 06:41 ABG ABG pH 7.28 pH Units (7.32-7.45) L 12/21/16 10:34 ABG pCO2 59 mmHg (35-45) H 12/21/16 10:34 ABG pO2 86 mmHg (85-104) 12/21/16 10:34 ABG O2 Saturation 95 % (95-98) 12/21/16 10:34 Abnormal lab findings: Abnormal lab results RBC 3.55 M/mcL (4.19-5.50) L 12/25/16 06:41 Hgb 9.4 g/dL (12.9-16.9) L 12/25/16 06:41 Hct 30.1 % (37.5-50.1) L 12/25/16 06:41 MCH 26.5 pg (28.0-33.3) L 12/25/16 06:41 MCHC 31.2 g/dL (31.6-35.5) L 12/25/16 06:41 RDW 16.1 % (11.5-14.5) H 12/25/16 06:41 Nucleated RBCs/100 WBC 0.6 /100 WBC (0) H 12/23/16 03:21 ABG pH 7.28 pH Units (7.32-7.45) L 12/21/16 10:34 ABG pCO2 59 mmHg (35-45) H 12/21/16 10:34 ABG HCO3 27.7 mEQ/L (21-27) H 12/21/16 10:34 ABG Total CO2 29.5 mEq/L (20-26) H 12/21/16 10:34 Potassium 5.0 mEq/L (3.5-4.5) H 12/25/16 06:41 BUN 27 mg/dL (8-26) H D 12/25/16 06:41 Est GFR (Non-Af Amer) 57 (> 60) L 12/25/16 06:41 Glucose 103 mg/dL (70-99) H 12/25/16 06:41 POC Glucose 111 (58-89) H 12/25/16 07:03 Alkaline Phosphatase 135 Units/L (38-126) H 12/22/16 02:43 Albumin 2.6 g/dL (3.5-5.0) L 12/22/16 02:43 Globulin 3.6 g/dL (2.4-3.5) H 12/22/16 02:43 Albumin/Globulin Ratio 0.7 (1.1-2.2) L 12/22/16 02:43 Urine Clarity Cloudy (Clear) A 12/21/16 04:00 Urine Protein 100 mg/dL (Neg-Trace) H 12/21/16 04:00 Urine Blood Large (Negative) H 12/21/16 04:00 Ur Leukocyte Esterase Large (Negative) H 12/21/16 04:00 Urine Microscopic RBC 50-100 per hpf (0-3) H 12/21/16 04:00 Urine Microscopic WBC 30-50 per hpf (0-3) H 12/21/16 04:00 Ur Squamous Epith Cells Moderate per lpf (None-Few) H 12/21/16 04:00 Urine Bacteria Many per hpf (None-Few) H 12/21/16 04:00 Ur Culture Indicated? YES (NO) A 12/21/16 04:00 - Microbiology Findings Microbiology Findings: Microbiology, Last 48 Hours 12/21/16 04:00 Urine Culture - Final Urine,Random-Not Preferred Pseudomonas aeruginosa - Clinical Findings Intake & Output: Intake & Output 12/24/16 12/24/16 12/25/16 15:59 23:59 07:59 Intake Total 920 / 920 200 / 200 Output Total 1025 / 1025 1100 / 1100 1999 Balance -105 / -105 -900 / -900 -1999 Weight 132.3 kg - VTE Documentation of Mechanical Device: Intermittent pneumatic compression device Consult Discharge Plan - Plan [facility]: [facility]Primary Care Provider[facility] - <Camilo Harding - Last Filed: 12/25/16 12:55> Objective PUL Vital signs: Last Vital Signs Temp 98.2 F 12/25/16 08:20 Pulse 87 12/25/16 08:00 Resp 18 12/25/16 08:00 BP 149/95 12/25/16 08:00 Pulse Ox 94 L 12/25/16 08:00 Results - Laboratory Findings CBC and BMP: 12/25/16 06:41 12/25/16 06:41 ABG ABG pH 7.28 pH Units (7.32-7.45) L 12/21/16 10:34 ABG pCO2 59 mmHg (35-45) H 12/21/16 10:34 ABG pO2 86 mmHg (85-104) 12/21/16 10:34 ABG O2 Saturation 95 % (95-98) 12/21/16 10:34 Abnormal lab findings: Abnormal lab results RBC 3.55 M/mcL (4.19-5.50) L 12/25/16 06:41 Hgb 9.4 g/dL (12.9-16.9) L 12/25/16 06:41 Hct 30.1 % (37.5-50.1) L 12/25/16 06:41 MCH 26.5 pg (28.0-33.3) L 12/25/16 06:41 MCHC 31.2 g/dL (31.6-35.5) L 12/25/16 06:41 RDW 16.1 % (11.5-14.5) H 12/25/16 06:41 Nucleated RBCs/100 WBC 0.6 /100 WBC (0) H 12/23/16 03:21 ABG pH 7.28 pH Units (7.32-7.45) L 12/21/16 10:34 ABG pCO2 59 mmHg (35-45) H 12/21/16 10:34 ABG HCO3 27.7 mEQ/L (21-27) H 12/21/16 10:34 ABG Total CO2 29.5 mEq/L (20-26) H 12/21/16 10:34 Potassium 5.0 mEq/L (3.5-4.5) H 12/25/16 06:41 BUN 27 mg/dL (8-26) H D 12/25/16 06:41 Est GFR (Non-Af Amer) 57 (> 60) L 12/25/16 06:41 Glucose 103 mg/dL (70-99) H 12/25/16 06:41 POC Glucose 111 (58-89) H 12/25/16 07:03 Alkaline Phosphatase 135 Units/L (38-126) H 12/22/16 02:43 Albumin 2.6 g/dL (3.5-5.0) L 12/22/16 02:43 Globulin 3.6 g/dL (2.4-3.5) H 12/22/16 02:43 Albumin/Globulin Ratio 0.7 (1.1-2.2) L 12/22/16 02:43 Urine Clarity Cloudy (Clear) A 12/21/16 04:00 Urine Protein 100 mg/dL (Neg-Trace) H 12/21/16 04:00 Urine Blood Large (Negative) H 12/21/16 04:00 Ur Leukocyte Esterase Large (Negative) H 12/21/16 04:00 Urine Microscopic RBC 50-100 per hpf (0-3) H 12/21/16 04:00 Urine Microscopic WBC 30-50 per hpf (0-3) H 12/21/16 04:00 Ur Squamous Epith Cells Moderate per lpf (None-Few) H 12/21/16 04:00 Urine Bacteria Many per hpf (None-Few) H 12/21/16 04:00 Ur Culture Indicated? YES (NO) A 12/21/16 04:00 - Microbiology Findings Microbiology Findings: Microbiology, Last 48 Hours 12/21/16 04:00 Urine Culture - Final Urine,Random-Not Preferred Pseudomonas aeruginosa - Clinical Findings Intake & Output: Intake & Output 12/24/16 12/25/16 12/25/16 23:59 07:59 15:59 Intake Total 200 / 200 Output Total 1100 / 1100 1999 Balance -900 / -900 -1999 Weight 132.3 kg - Attending Attestation I examined this patient and my medical decision-making was reviewed with the MACHINE FITTER/PA/Advanced Practice Nurse/Resident Physician. I agree with the documented findings, disposition and treatment plan as described except to the extent set forth below. Patient seen and examined at bedside Labs, radiology, chart personally reviewed. All lines examined without evidence of infection. Neuropsych: Awake and alert no focal deficits Pulm:Hypoxic respiratory failure improving wean off NC O2. Cards: MAP stable. Afib on LTA being held. Rate controlled. differ to Cardiology and GI regarding resumption of LTA would not restart at this time s/ t Hmetaturia and possible GI bleed FEN-GI: Seen by Surgery plan for outpatient endocosopy for GI bleed Renal/: Improving GEORGE. Urolog following for gross hematuria likely s/t prostate CA with UTI. CBI stopped now as urine has cleared ID: treating for complicated UTI (PSDA) with Cefepime Heme/Onc: H/H stable now after transfusion cont Mechanical DVT prophylaxis Endo: Glucose monitored Integ/MSK: Skin care per protocol CODE:Full Stable for transfer to Telemetry for ongoing care
[2016-12-25] MEDS: Insulin LISPRO 300 UNITS/3 ML VIAL SQ SCH ×3 (07:39→21:14)
[2016-12-25] MEDS ORDERED: 0.9 % Sodium Chloride 1,000 ML ONE (07:41)
[2016-12-25] MEDS: Cefepime HCl 1,000 MG in D5% in Water (Mini-Bag+) 100 ML IVPB SCH ×2 (07:42→17:39)
[2016-12-25] MEDS: Pantoprazole 40 MG VIAL IVP SCH (07:42)
--- NOTE | 2016-12-25 10:52 | Urology Progress Note ---
Date of Encounter: 12/25/16 Time of Encounter: 10:51 - Assessment and Plan (1) Gross hematuria Current Visit: Yes Status: Acute Assessment and plan: resolved. will take catheter out today (2) Prostate cancer Current Visit: Yes Status: Acute Progress Note Narrative: Patient seen. urine clear today. Objective Initial Vital Signs Temp Pulse Resp BP Pulse Ox 98.8 F 98 16 103/57 98 12/20/16 19:24 12/20/16 19:24 12/20/16 19:24 12/20/16 19:24 12/20/16 19:24 - General physical appearance Present: well developed - Abdomen Present: soft - Genitourinary Present: other (urine clear) - Labs 12/25/16 06:41 12/25/16 06:41 Diabetes panel 12/25/16 Range/Units 06:41 Sodium 140 (136-145) mEq/L Potassium 5.0 H (3.5-4.5) mEq/L Chloride 105 (98-109) mEq/L Carbon Dioxide 26 (19-29) mEq/L BUN 27 H D (8-26) mg/dL Creatinine 1.25 (0.72-1.25) mg/dL Glucose 103 H (70-99) mg/dL Calcium 9.5 (8.6-10.8) mg/dL Calcium panel 12/25/16 Range/Units 06:41 Calcium 9.5 (8.6-10.8) mg/dL Pituitary panel 12/25/16 Range/Units 06:41 Sodium 140 (136-145) mEq/L Potassium 5.0 H (3.5-4.5) mEq/L Chloride 105 (98-109) mEq/L Carbon Dioxide 26 (19-29) mEq/L BUN 27 H D (8-26) mg/dL Creatinine 1.25 (0.72-1.25) mg/dL Glucose 103 H (70-99) mg/dL Calcium 9.5 (8.6-10.8) mg/dL Adrenal panel 12/25/16 Range/Units 06:41 Sodium 140 (136-145) mEq/L Potassium 5.0 H (3.5-4.5) mEq/L Chloride 105 (98-109) mEq/L Carbon Dioxide 26 (19-29) mEq/L BUN 27 H D (8-26) mg/dL Creatinine 1.25 (0.72-1.25) mg/dL Glucose 103 H (70-99) mg/dL Calcium 9.5 (8.6-10.8) mg/dL - VTE Documentation of Mechanical Device: Intermittent pneumatic compression device Consult Discharge Plan - Plan Referrals: [facility] [Primary Care Provider] -
[2016-12-25] MEDS ORDERED: Ondansetron 4 MG/2 ML VIAL IVP PRN (12:07)
[2016-12-25] MEDS ORDERED: *HR* HYDROmorphone (PF) 1 MG/ML SYRINGE IVP PRN (12:07)
[2016-12-25] MEDS ORDERED: Benzonatate 100 MG CAPSULE PO PRN (12:07)
[2016-12-25] MEDS ORDERED: Naloxone 0.4 MG/ML INJ IVP PRN (12:07)
[2016-12-25] MEDS ORDERED: Dextrose Gel 15 GM PO PRN ×2 (12:07)
[2016-12-25] MEDS ORDERED: *HR* Dextrose 50 % in Water (Syg) 50 ML SYRINGE IVP PRN (12:07)
[2016-12-25] MEDS: Ascorbic Acid 500 MG TABLET PO SCH (15:31)
[2016-12-25] MEDS: Aspirin Enteric Coated 81 MG Tablet PO SCH (15:31)
[2016-12-25] MEDS: Artificial Tears SOLN 15 ML BOTTLE OP SCH ×3 (15:31→21:13)
[2016-12-25] MEDS: amLODIPine 5 MG TABLET PO SCH (15:31)
[2016-12-25] MEDS ORDERED: Pantoprazole 40 MG VIAL IVP SCH (18:00)
[2016-12-25] MEDS: Acetaminophen 325 MG TABLET PO PRN (18:39)
[2016-12-25] MEDS ORDERED: (Ferrous Gluconate [Ferrous Gluconate] 324 MG) PO SCH (21:00)
[2016-12-25] MEDS: *HR* HYDROcodone/Acet 5/325 mg TABLET PO PRN (21:10)
[2016-12-25] MEDS: Insulin DETEMIR 100 UNIT/ML X5UNITS SQ SCH (21:12)
[2016-12-26] MEDS: Ipratropium/Albuterol Neb 3 ML IH SCH ×7 (00:33→23:34)
--- NOTE | 2016-12-26 07:01 | Pulmonology Progress Note ---
<Camilo Harding W - Last Filed: 12/26/16 11:07> Objective PUL Vital signs: Last Vital Signs Temp 97.7 F 12/26/16 07:43 Pulse 83 12/26/16 09:30 Resp 24 12/26/16 08:45 BP 147/105 12/26/16 08:45 Pulse Ox 97 12/26/16 08:45 Results - Laboratory Findings CBC and BMP: 12/26/16 06:48 12/26/16 06:48 ABG ABG pH 7.28 pH Units (7.32-7.45) L 12/21/16 10:34 ABG pCO2 59 mmHg (35-45) H 12/21/16 10:34 ABG pO2 86 mmHg (85-104) 12/21/16 10:34 ABG O2 Saturation 95 % (95-98) 12/21/16 10:34 Abnormal lab findings: Abnormal lab results RBC 3.43 M/mcL (4.19-5.50) L 12/26/16 06:48 Hgb 9.4 g/dL (12.9-16.9) L 12/26/16 06:48 Hct 29.1 % (37.5-50.1) L 12/26/16 06:48 MCH 27.4 pg (28.0-33.3) L 12/26/16 06:48 RDW 16.0 % (11.5-14.5) H 12/26/16 06:48 Nucleated RBCs/100 WBC 0.6 /100 WBC (0) H 12/23/16 03:21 ABG pH 7.28 pH Units (7.32-7.45) L 12/21/16 10:34 ABG pCO2 59 mmHg (35-45) H 12/21/16 10:34 ABG HCO3 27.7 mEQ/L (21-27) H 12/21/16 10:34 ABG Total CO2 29.5 mEq/L (20-26) H 12/21/16 10:34 Potassium 4.7 mEq/L (3.5-4.5) H 12/26/16 06:48 Alkaline Phosphatase 135 Units/L (38-126) H 12/22/16 02:43 Albumin 2.6 g/dL (3.5-5.0) L 12/22/16 02:43 Globulin 3.6 g/dL (2.4-3.5) H 12/22/16 02:43 Albumin/Globulin Ratio 0.7 (1.1-2.2) L 12/22/16 02:43 Urine Clarity Cloudy (Clear) A 12/21/16 04:00 Urine Protein 100 mg/dL (Neg-Trace) H 12/21/16 04:00 Urine Blood Large (Negative) H 12/21/16 04:00 Ur Leukocyte Esterase Large (Negative) H 12/21/16 04:00 Urine Microscopic RBC 50-100 per hpf (0-3) H 12/21/16 04:00 Urine Microscopic WBC 30-50 per hpf (0-3) H 12/21/16 04:00 Ur Squamous Epith Cells Moderate per lpf (None-Few) H 12/21/16 04:00 Urine Bacteria Many per hpf (None-Few) H 12/21/16 04:00 Ur Culture Indicated? YES (NO) A 12/21/16 04:00 - Clinical Findings Intake & Output: Intake & Output 12/25/16 12/26/16 12/26/16 23:59 07:59 15:59 Intake Total 200 / 200 Output Total 425 / 425 250 / 250 Balance -425 / -425 -50 / -50 Weight 83.642 kg Consult Discharge Plan - Plan [facility]errals: [facility]Primary Care Provider] - - Attending Attestation I examined this patient and my medical decision-making was reviewed with the POLICY OFFICER/PA/Advanced Practice Nurse/Resident Physician. I agree with the documented findings, disposition and treatment plan as described except to the extent set forth below. Impression: 1. Hematuria 2. Prostate CA 3. Chronic Respiratory Failure 4. PSDA UTI 5. Possible GI Hemorrhage 6. AFIB 7. MARTHA. Plan: 1. Urology following. S/p CBI koo out. High risk for rebleeding 2. Oncology consult. Consider palliative care. 3. Baseline O2 requirement currently. Cont diuretic 4. Cont Anitbiotics for 10days 5. Seems much less likely. Outpatient endocosopy planned 6. Cont ASA 325 holding NOAC s/t bleeding risk 7. Cont PAP therapy at night <Conrado Jane - Last Filed: 12/26/16 11:46> Date of Encounter: 12/26/16 Time of Encounter: 07:00 Assessment and Plan (1) Acute on chronic respiratory failure with hypoxia and hypercapnia Current Visit: Yes Status: Resolved Clinically patient's respiratory status has improved, now back to his baseline, currently on 2L of nasal cannula and satting 95%. Likely this was multifactorial from symptomatic anemia, history of obstructive sleep apnea, COPD and obesity hypoventilation syndrome, patient will continue to use BiPAP prn and at the bedtime and oxygen support along with duoneb q4hrs, will resume home dose of Lasix in IV form today, transfer order to medical floor placed yesterday. (2) Acute blood loss anemia Current Visit: Yes Status: Acute S/p 4 units of PRBC during this hospital stay, patient's hemoglobin has been stable from 8.8 to 9.4 in last few days, he had a normal bowel movement yesterday, spoke with the surgery team last week, at this time patient is not required to have urgent upper or lower endoscopy, this will be done as outpatient. Patient had a significant hematuria in his koo bag last week, with recent history of hydronephrosis, metastatic prostate cancer and gross hematuria, urology was consulted, he was started on CBI over the weekend, now bloody urine resolved with occasional blood clot, CBI stopped and koo was removed yesterday. (3) Gross hematuria Current Visit: Yes Status: Acute He was started on CBI over the weekend, urology has been following, now hematuria resolved, turning into yellow color with occasional blood clots noted , CBI stopped and the koo was removed yesterday. (4) Acute encephalopathy Current Visit: Yes Status: Resolved Resolved, now patient's mental status is at baseline, his change in mental status was likely due to hypercarbia from respiratory acidosis and symptomatic anemia, his hypercarbia improved after use of BiPAP and his hemoglobin improved after 4 units of PRBC transfusion, continue to monitor his mental status. (5) UTI (urinary tract infection) Current Visit: Yes Status: Acute Urine culture came back Pseudomonas sensitive to cefepime, he was started on cefepime IV for total of 10 days for complicated UTI, today is day 5, pt is not septic. Qualifiers: Urinary tract infection type: acute cystitis Hematuria presence: with hematuria Qualified Code(s): N30.01 - Acute cystitis with hematuria (6) Acute worsening of stage 3 chronic kidney disease Current Visit: Yes Status: Acute Resolved. In recent hospitalization he was diagnosed with left sided hydronephrosis, s/p left side nephrostomy tube placement but it was removed and stent was placed, came in this time with acute on CKD III, pt has hx of metastatic prostate cancer, taking Flomax at home, possible post-renal GEORGE from obstruction, after koo placement, he has been having good urine output, his SCr significantly improved, con't to avoid nephrotoxic agents and closely monitor his renal function. (7) History of atrial fibrillation Current Visit: Yes Status: Acute Currently Eliquis is on hold due to recent hematuria, home dose of aspirin resumed yesterday, surgery signed off and he will need outpt endoscopy, for his anticoagulation we will continue with aspirin for now due to recent history of acute blood loss anemia, his heart rate has been stable with HR less than 90, sinus, con't to closely monitor his VS. (8) COPD (chronic obstructive pulmonary disease) Current Visit: Yes Status: Acute Pt is chronic CO2 retainer, does not seem to be in exacerbation, pt received solu-medrol 125 mg IV x1 in the ER, currently on bipap prn and at bedtime, satting 95% on 2L of NC, con't oxygen support and duoneb. Qualifiers: Qualified Code(s): J44.9 - Chronic obstructive pulmonary disease, unspecified (9) Prostate cancer metastatic to intrapelvic lymph node Current Visit: Yes Status: Acute Pt sees Dr. Marcus in [facility], from recent oncology note, pt received lupron on 11/20/2016, will consult oncology today for his recent history of symptomatic acute blood loss anemia and hematuria, question as to should we continue on chronic anticoagulation with Eliquis and his overall prognosis with his stage IV prostate cancer. (10) DM II (diabetes mellitus, type II), controlled Current Visit: Yes Status: Acute Recent HGB a1c is 5.6, glucose stable at this time, con't home dosage of levemir and accucheck ACHS with SSI. 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 Subjective Principal diagnosis: Symptomatic anemia and acute on chronic respiratory failure Interval history: This is a 71 year old male with a history of metastatic prostate cancer who was brought from long term to the hospital for symptomatic acute blood loss anemia, acute on chronic respiratory failure and acute encephalopathy. Patient seen and examined. This morning patient was sitting comfortably in bed watching TV, he was eating breakfast, no overnight event. Koo was removed yesterday, occasional blood clot and dense yellowish urine color. He states that his breathing is back to his baseline, denies productive cough or chest pain, normal bowel movement yesterday. Objective PUL Vital signs: Last Vital Signs Temp 98.5 F 12/26/16 04:47 Pulse 85 12/26/16 05:00 Resp 16 12/26/16 05:13 BP 156/97 12/25/16 21:00 Pulse Ox 92 L 12/26/16 05:13 General appearance: no acute distress, alert Eyes: nonicteric, other (No right eye) ENT: oropharynx moist Neck: supple Effort: normal Auscultation: bilateral: diminished breath sounds (Upper field) Cardiovascular: regular rate and rhythm Gastrointestinal: normoactive bowel sounds, soft, non-tender, non-distended Integumentary: normal Extremities: no cyanosis, edema (Nonpitting pedal bilaterally) Musculoskeletal: no deformities normal mental status, non-focal exam, CN II-XII normal mood appropriate, affect normal Results - Laboratory Findings CBC and BMP: 12/26/16 06:48 12/26/16 06:48 ABG ABG pH 7.28 pH Units (7.32-7.45) L 12/21/16 10:34 ABG pCO2 59 mmHg (35-45) H 12/21/16 10:34 ABG pO2 86 mmHg (85-104) 12/21/16 10:34 ABG O2 Saturation 95 % (95-98) 12/21/16 10:34 Abnormal lab findings: Abnormal lab results RBC 3.55 M/mcL (4.19-5.50) L 12/25/16 06:41 Hgb 9.4 g/dL (12.9-16.9) L 12/25/16 06:41 Hct 30.1 % (37.5-50.1) L 12/25/16 06:41 MCH 26.5 pg (28.0-33.3) L 12/25/16 06:41 MCHC 31.2 g/dL (31.6-35.5) L 12/25/16 06:41 RDW 16.1 % (11.5-14.5) H 12/25/16 06:41 Nucleated RBCs/100 WBC 0.6 /100 WBC (0) H 12/23/16 03:21 ABG pH 7.28 pH Units (7.32-7.45) L 12/21/16 10:34 ABG pCO2 59 mmHg (35-45) H 12/21/16 10:34 ABG HCO3 27.7 mEQ/L (21-27) H 12/21/16 10:34 ABG Total CO2 29.5 mEq/L (20-26) H 12/21/16 10:34 Potassium 5.0 mEq/L (3.5-4.5) H 12/25/16 06:41 BUN 27 mg/dL (8-26) H D 12/25/16 06:41 Est GFR (Non-Af Amer) 57 (> 60) L 12/25/16 06:41 Glucose 103 mg/dL (70-99) H 12/25/16 06:41 POC Glucose 103 (58-89) H 12/25/16 19:47 Alkaline Phosphatase 135 Units/L (38-126) H 12/22/16 02:43 Albumin 2.6 g/dL (3.5-5.0) L 12/22/16 02:43 Globulin 3.6 g/dL (2.4-3.5) H 12/22/16 02:43 Albumin/Globulin Ratio 0.7 (1.1-2.2) L 12/22/16 02:43 Urine Clarity Cloudy (Clear) A 12/21/16 04:00 Urine Protein 100 mg/dL (Neg-Trace) H 12/21/16 04:00 Urine Blood Large (Negative) H 12/21/16 04:00 Ur Leukocyte Esterase Large (Negative) H 12/21/16 04:00 Urine Microscopic RBC 50-100 per hpf (0-3) H 12/21/16 04:00 Urine Microscopic WBC 30-50 per hpf (0-3) H 12/21/16 04:00 Ur Squamous Epith Cells Moderate per lpf (None-Few) H 12/21/16 04:00 Urine Bacteria Many per hpf (None-Few) H 12/21/16 04:00 Ur Culture Indicated? YES (NO) A 12/21/16 04:00 - Clinical Findings Intake & Output: Intake & Output 12/25/16 12/25/16 12/26/16 15:59 23:59 07:59 Intake Total 200 / 200 Output Total 425 / 425 100 / 100 Balance -425 / -425 100 / 100 Weight 83.642 kg - VTE Documentation of Mechanical Device: Intermittent pneumatic compression device
[2016-12-26 07:36] LABS: Basophils # 0.1 K/mcL (0.0-0.2); Basophils % 0.7 %; Eosinophils # 0.5 K/mcL (0.0-0.6); Eosinophils % 7.5 %; Hematocrit 29.1 % (37.5-50.1); Hemoglobin 9.4 g/dL (12.9-16.9); Immature Granulocytes % 1.5 % (0-4); Lymphocytes # 0.9 K/mcL (0.6-4.6); Lymphocytes % 12.4 %; Mean Corpuscular HGB Conc 32.3 g/dL (31.6-35.5); Mean Corpuscular Hemoglobin 27.4 pg (28.0-33.3); Mean Corpuscular Volume 84.8 fL (83.0-100.0); Mean Platelet Volume 10.6 fL (9.4-12.4); Monocytes # 0.6 K/mcL (0.0-1.3); Monocytes % 8.2 %; Platelet Count 207 K/mcL (140-400); Red Blood Count 3.43 M/mcL (4.19-5.50); Segmented Neutrophils % 69.7 %
[2016-12-26 07:43] LABS: BUN/Creatinine Ratio 20 (6-26); Blood Urea Nitrogen 22 mg/dL (8-26); Calcium 9.6 mg/dL (8.6-10.8); Carbon Dioxide 26 mEq/L (19-29); Chloride 103 mEq/L (98-109); Glucose 85 mg/dL (70-99); Osmolality,Calculated 287 (280-300); Potassium 4.7 mEq/L (3.5-4.5); Sodium 137 mEq/L (136-145); eGFR For African Americans > 60 (> 60); eGFR For Non-African Americans > 60 (> 60)
--- NOTE | 2016-12-26 09:14 | Urology Progress Note ---
Date of Encounter: 12/26/16 Time of Encounter: 09:13 - Assessment and Plan (1) Gross hematuria Current Visit: Yes Status: Acute Assessment and plan: returned. hgb stable. no new catheter at this time. (2) Prostate cancer Current Visit: Yes Status: Acute Progress Note Narrative: patient seen. sleeping this am. has had some hematuria since catheter was removed. emptying well with recent bladder scan showing 88. Objective Initial Vital Signs Temp Pulse Resp BP Pulse Ox 98.8 F 98 16 103/57 98 12/20/16 19:24 12/20/16 19:24 12/20/16 19:24 12/20/16 19:24 12/20/16 19:24 - General physical appearance Present: well developed - Abdomen Present: soft - Labs 12/26/16 06:48 12/26/16 06:48 Diabetes panel 12/26/16 Range/Units 06:48 Sodium 137 (136-145) mEq/L Potassium 4.7 H (3.5-4.5) mEq/L Chloride 103 (98-109) mEq/L Carbon Dioxide 26 (19-29) mEq/L BUN 22 (8-26) mg/dL Creatinine 1.12 (0.72-1.25) mg/dL Glucose 85 (70-99) mg/dL Calcium 9.6 (8.6-10.8) mg/dL Calcium panel 12/26/16 Range/Units 06:48 Calcium 9.6 (8.6-10.8) mg/dL Pituitary panel 12/26/16 Range/Units 06:48 Sodium 137 (136-145) mEq/L Potassium 4.7 H (3.5-4.5) mEq/L Chloride 103 (98-109) mEq/L Carbon Dioxide 26 (19-29) mEq/L BUN 22 (8-26) mg/dL Creatinine 1.12 (0.72-1.25) mg/dL Glucose 85 (70-99) mg/dL Calcium 9.6 (8.6-10.8) mg/dL Adrenal panel 12/26/16 Range/Units 06:48 Sodium 137 (136-145) mEq/L Potassium 4.7 H (3.5-4.5) mEq/L Chloride 103 (98-109) mEq/L Carbon Dioxide 26 (19-29) mEq/L BUN 22 (8-26) mg/dL Creatinine 1.12 (0.72-1.25) mg/dL Glucose 85 (70-99) mg/dL Calcium 9.6 (8.6-10.8) mg/dL - VTE Documentation of Mechanical Device: Intermittent pneumatic compression device Consult Discharge Plan - Plan [facility]errals: [facility] [Primary Care Provider] -
[2016-12-26] MEDS: Ascorbic Acid 500 MG TABLET PO SCH (09:49)
[2016-12-26] MEDS: Pyridoxine (B-6) 50 MG TABLET PO SCH (09:49)
[2016-12-26] MEDS: Aspirin Enteric Coated 81 MG Tablet PO SCH (09:50)
[2016-12-26] MEDS: amLODIPine 5 MG TABLET PO SCH (09:50)
[2016-12-26] MEDS: Insulin LISPRO 300 UNITS/3 ML VIAL SQ SCH ×4 (09:53→22:12)
[2016-12-26] MEDS: FERROUS SULFATE 324 MG PO SCH ×2 (09:53→20:20)
[2016-12-26] MEDS: Artificial Tears SOLN 15 ML BOTTLE OP SCH (10:00)
[2016-12-26] MEDS ORDERED: Furosemide 40 MG/4 ML VIAL IVP SCH (11:30)
[2016-12-26] MEDS ORDERED: amLODIPine 5 MG TABLET PO ONE (13:58)
--- NOTE | 2016-12-26 15:09 | Oncology Inp Consult Note ---
<Rosaline Barton E - Last Filed: 12/26/16 15:07> Date of Encounter: 12/26/16 Time of Encounter: 14:30 - Data of Consult Patient: known to practice within the last 3 years Consult date: 12/26/16 Requesting Physician: Cleo Guzman MD Primary Care Provider[facility] - Consult Narrative Reason for consult: Patient has atrial fib consult is to evaluate whether eliquis is appropriat History of present illness: Mr. Blas is a 71 year old male was recently admitted to [facility] secondary to severe anemia and hematuria. He has a history including metastatic prostate cancer, CHF, insulin-dependent diabetes mellitus, prior CVA, coronary artery disease, chronic kidney disease, stage III, hypertension, hyperlipidemia, valvular disease with prior valve replacement and atrial fib on eliquis. While in the emergency department he had stool for occult blood was positive. Prior to admission he was in a alf facility for rehabilitation. He was found to have hemoglobin of 6.8. During his last admission he was found to have left hydronephrosis. Had a left to me tube placed and developed hematuria had acute blood loss and received 5 units of packed cells during that admission. The nephrostomy tube was removed and a stent was placed. During this admission he also was found to have hematuria he has been seen by urology. He has had CBI for 2 days that was discontinued his Ramos was removed his urine remains pinkish in color. He has received 4 units of packed cells during this hospital stay. We have been asked to see the patient to determine whether he should remain on Eliquis which is given for atrial fibrillation. Past Med Surg Social Fam HX - Past Medical History Medical history: arthritis, atrial fibrillation, cancer (metastatic prostate), COPD, coronary artery disease, CVA, diabetes (type II), GERD, hyperlipidemia, hypertension, renal disease (CKD III), valvular heart disease Psychiatric history: anxiety, depression - Past Surgical History Surgical History: coronary bypass (CABG), heart valve replacement, other (left nephrostomy tube placement) - Social History Smoking Status: Unknown if ever smoked Smokeless Tobacco Status: No Alcohol use: unknown Drug use: unknown - Family History Father Living Status: Hx Family Cardiac Disorders: Yes Medications and Allergies Acetaminophen [Tylenol] 325 mg PO BID PRN 10/17/15 [History] Allopurinol [Zyloprim 300 MG] 300 mg PO DAILY 10/17/15 [History] Ascorbic Acid [Vitamin C] 1,000 mg PO DAILY 10/17/15 [History] Carboxymethylcellulos/Glycerin [Refresh Optive Eye Drops] 1 drop OP QID [History] Docusate Sodium [Colace] 100 mg PO BID 10/17/15 [History] Insulin Glargine [Lantus] 14 unit SQ HS 10/17/15 [History] Ipratropium/Albuterol Neb [Duoneb] 3 ml IH Q6H PRN 10/17/15 [History] Modafinil [Provigil] 400 mg PO QAM 10/17/15 [History] Multivitamin [Multivitamins] 1 tab PO QAM 10/17/15 [History] Omeprazole [PriLOSEC] 40 mg PO DAILY 10/17/15 [History] Saliva Stimulant [Biotene Moisturizing Rinse] 5 spray PO BID 10/17/15 [History] Bicalutamide [Casodex] 50 mg PO DAILY 05/24/16 [History] Capsaicin 0.025% [Trixaicin] 1 appl TP DAILY PRN 05/24/16 [History] Pyridoxine HCl [Vitamin B-6] 100 mg PO DAILY 05/24/16 [History] Gabapentin [Neurontin] 300 mg PO TID 11/17/16 [History] Amlodipine [Norvasc] 5 mg PO DAILY #30 tablet 11/27/16 [Rx] Sertraline [Zoloft] 50 mg PO QAM #30 tablet 11/30/16 [Rx] Albuterol Sulfate [Proair Hfa] 1 puff IH Q6H PRN 12/20/16 [History] Amino Acids/Protein Hydrolys [Pro-Stat Awc Liquid Packet] 30 ml PO QAM 12/20/16 [History] Apixaban [Eliquis] 5 mg PO BID 12/20/16 [History] Aspirin Enteric Coated [Aspirin EC] 81 mg PO DAILY 12/20/16 [History] Atorvastatin [Lipitor] 40 mg PO HS 12/20/16 [History] Benzocaine/Menthol [Cepacol Sore Throat Lozenge] 1 lozenge PO Q6H PRN 12/20/16 [ History] Calcium Carbonate [Calcium] 1,000 mg PO BID 12/20/16 [History] Ferrous Gluconate 324 mg PO BID 12/20/16 [History] Furosemide [Lasix] 80 mg PO QAM 12/20/16 [History] Insulin LISPRO [HumaLOG] 2 - 12 units SQ ACHS 12/20/16 [History] Lisinopril 2.5 mg PO BID 12/20/16 [History] OxyCODONE Immed Rel [Roxicodone 5 MG] 5 mg PO Q4H PRN 12/20/16 [History] Tamsulosin [Flomax] 0.4 mg PO DAILY 12/20/16 [History] U-Lactin 1 appl TP BID 12/20/16 [History] Allergies IVP dye Allergy (Uncoded 10/17/15 06:47) Vomiting All systems: reviewed and no additional remarkable complaints except as stated Constitutional: Present: fatigue Additional comments: The breath but states that it is improving. During the visit he did not have supplemental oxygen and his pulse ox was 95%. Genitourinary: dysuria Additional comments: Urine remained pinkish in color Musculoskeletal: Present: muscle weakness Oncology - Exam - Constitutional Vitals: Temp Pulse Resp BP Pulse Ox 98.2 F 82 11 164/103 94 L 12/26/16 12:18 12/26/16 13:34 12/26/16 11:17 12/26/16 11:17 12/26/16 11:17 General appearance: cooperative - Head Head exam: Present: normal inspection - ENT ENT exam: Present: mucous membranes moist - Respiratory Respiratory exam: Present: CTAB - Cardiovascular Cardiovascular exam: Present: RRR - GI/Abdominal GI/Abdominal exam: Present: normal bowel sounds, soft - Extremities Exam Extremities exam: Present: normal inspection - Neurological Exam Neurological exam: Present: alert, oriented X3 Oncology - Results - Labs Labs: Short CBC 12/26/16 Range/Units 06:48 WBC 7.2 (4.3-11.1) K/mcL Hgb 9.4 L (12.9-16.9) g/dL Hct 29.1 L (37.5-50.1) % Plt Count 207 (140-400) K/mcL Neutrophils # 5.0 (1.6-8.9) K/mcL BMP 12/26/16 06:48 Sodium 137 Potassium 4.7 H Chloride 103 Carbon Dioxide 26 BUN 22 Creatinine 1.12 Glucose 85 Calcium 9.6 Consult Discharge Plan - Plan Referrals: [facility] [Primary Care Provider] - <Tahir Moya - Last Filed: 12/26/16 15:47> Date of Encounter: 12/26/16 - Data of Consult Requesting Physician: Cleo Guzman MD Primary Care Provider: PCP [facility] - Consult Narrative History of present illness: Patient with a diagnosis of metastatic prostate cancer, on Lupron status post last Lupron of November 2016, was on Casodex November, currently not on Casodex , the plan was to obtain testosterone levels and switch him to abiraterone. Patient has not had a free testosterone but total in November 2016 at 180. Patient was hospitalized a few weeks ago due to anemia, hematuria on eliquis due to atrial fibrillation, rehospitalized with anemia, noted to have hematuria upon insertion of Ramos catheter. He has underwent bladder irrigation and hematology consulted regarding his prognosis and further treatment options and anticoagulation option. Due to repeated bleeding episodes and moderate degree of anemia he is at risk for considerable bleeding with liquids. 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 PSA noted to increase from 324 to 1053. He is not able to f/u [facility] due to recurrent hospital stay. To consider abiraterone or enzalutamide as an outpatient to switch therapy. Patient was seen examined by myself. I have discussed plan of care with ICU staff, discussed above paln with Rosaline Barton> I have reviewed her notes above and agree. Oncology - Exam - Constitutional Vitals: Temp Pulse Resp BP Pulse Ox 98.2 F 82 11 164/103 94 L 12/26/16 12:18 12/26/16 13:34 12/26/16 11:17 12/26/16 11:17 12/26/16 11:17 Oncology - Results - Labs Labs: Short CBC 12/26/16 Range/Units 06:48 WBC 7.2 (4.3-11.1) K/mcL Hgb 9.4 L (12.9-16.9) g/dL Hct 29.1 L (37.5-50.1) % Plt Count 207 (140-400) K/mcL Neutrophils # 5.0 (1.6-8.9) K/mcL BMP 12/26/16 06:48 Sodium 137 Potassium 4.7 H Chloride 103 Carbon Dioxide 26 BUN 22 Creatinine 1.12 Glucose 85 Calcium 9.6
[2016-12-26] MEDS: Furosemide 40 MG TABLET PO SCH (16:58)
[2016-12-26] MEDS: *HR* HYDROcodone/Acet 5/325 mg TABLET PO PRN (20:20)
[2016-12-26] MEDS: Acetaminophen 325 MG TABLET PO PRN (21:04)
[2016-12-26] MEDS: Insulin DETEMIR 100 UNIT/ML X5UNITS SQ SCH (22:15)
[2016-12-27] MEDS: Ipratropium/Albuterol Neb 3 ML IH SCH ×4 (04:06→16:39)
[2016-12-27] MEDS: Cefepime HCl 1,000 MG in D5% in Water (Mini-Bag+) 100 ML IVPB SCH (06:03)
[2016-12-27 07:36] LABS: BUN/Creatinine Ratio 19 (6-26); Blood Urea Nitrogen 22 mg/dL (8-26); Calcium 9.6 mg/dL (8.6-10.8); Carbon Dioxide 24 mEq/L (19-29); Chloride 100 mEq/L (98-109); Glucose 102 mg/dL (70-99); Osmolality,Calculated 286 (280-300); Potassium 4.4 mEq/L (3.5-4.5); Sodium 136 mEq/L (136-145); eGFR For African Americans > 60 (> 60); eGFR For Non-African Americans > 60 (> 60)
[2016-12-27 08:22] LABS: Basophils # 0.1 K/mcL (0.0-0.2); Basophils % 0.8 %; Eosinophils # 0.5 K/mcL (0.0-0.6); Eosinophils % 7.9 %; Hematocrit 32.2 % (37.5-50.1); Hemoglobin 10.1 g/dL (12.9-16.9); Immature Granulocytes % 0.9 % (0-4); Lymphocytes # 0.8 K/mcL (0.6-4.6); Lymphocytes % 13.2 %; Mean Corpuscular HGB Conc 31.4 g/dL (31.6-35.5); Mean Corpuscular Hemoglobin 26.2 pg (28.0-33.3); Mean Corpuscular Volume 83.6 fL (83.0-100.0); Mean Platelet Volume 10.5 fL (9.4-12.4); Monocytes # 0.6 K/mcL (0.0-1.3); Neutrophils # 4.3 K/mcL (1.6-8.9); Platelet Count 247 K/mcL (140-400); Red Blood Count 3.85 M/mcL (4.19-5.50); Red Cell Distribution Width 15.9 % (11.5-14.5); Segmented Neutrophils % 68.2 %
[2016-12-27] MEDS: Aspirin Enteric Coated 81 MG Tablet PO SCH (08:59)
[2016-12-27] MEDS ORDERED: Pantoprazole 40 MG VIAL IVP SCH (09:00)
[2016-12-27] MEDS ORDERED: amLODIPine 5 MG TABLET PO SCH (09:00)
[2016-12-27] MEDS: Furosemide 40 MG TABLET PO SCH (09:00)
[2016-12-27] MEDS: Pyridoxine (B-6) 50 MG TABLET PO SCH (09:01)
[2016-12-27] MEDS: Ascorbic Acid 500 MG TABLET PO SCH (09:01)
[2016-12-27] MEDS: FERROUS SULFATE 324 MG PO SCH (09:01)
[2016-12-27] MEDS: Insulin LISPRO 300 UNITS/3 ML VIAL SQ SCH ×2 (09:03→16:05)
[2016-12-27] MEDS: Artificial Tears SOLN 15 ML BOTTLE OP SCH ×2 (09:08→16:04)
--- NOTE | 2016-12-27 14:21 | Cardiology Consult Note ---
<Jeffrey Steve Rigo - Last Filed: 12/27/16 14:34> Date of Encounter: 12/27/16 Time of Encounter: 14:17 Assessment and Plan (1) Atrial fibrillation Current Visit: No Status: Inactive Known hx of A-Fib, previously anticoagulated on Eliquis. Rate controlled on BB. Given this is his second episode of symptomatic anemia requiring blood transfusions and now with recurrent episodes of hematuria during his inpt stay, it is reasonable to stop his intermediate anticoagulation. HGB as low as 6.8 during this stay--now stable. Discussed with pt and reviewed oncology notes. Agree that Eliquis should be held and should continue to be held on discharge to ECF. Continue ASA only. Discussed with pt that he is at increased stroke risk. Pt verbalizes understanding. No further cardiac recommendations. Signing off, reconsult PRN. Qualifiers: Atrial fibrillation type: chronic Qualified Code(s): I48.2 - Chronic atrial fibrillation (2) History of aortic valve replacement with bioprosthetic valve Current Visit: Yes Status: Chronic Hx of bioprosthetic AV replacement in 2011 at [facility]. Echo 10/2015 EF 55%, Bioprosthetic AV not well visualized, but no AR and no significant noted. MG 11mmHg. Discussion w patient/family: The assessment and plan as outlined above was discussed with the patient and/or family members who expressed understanding and agreement. All questions were answered. Thank you for involving us in the care of your patient. Please call with any questions. I will discuss all the above with Dr. Arteaga and make changes as necessary. History of Present Illness Consult date: 12/27/16 Requesting physician: Sintia Manning Consult reason: Eliquis Chief complaint: None History of present illness: Mr. Blas is a 71 year old male with PMH of metastatic prostate cancer (this caused external compression of ureters leading to hydronephrosis), diastolic CHF , A-Fib previously on Eliquis, insulin dependent diabetes mellitus, prior CVA, CKD stage III, hypertension, hyperlipidemia, hx of bioprosthetic AV replacement at [facility] in 2011 that was [facility] [place] [facility] due to concerns of development of symptomatic anemia. Patient normally has a hemoglobin around 8.5-9, the fci found during routine lab work the patient's hemoglobin had dropped--was 6.8 on admission. This is the second episode this year of symptomatic anemia requiring blood transfusions. He has received 4 units PRBCs during this stay. H&H now stable. Primary team recommends outpt GI eval. On admission pt also found to have GEORGE and acute respiratory failure--now resolved. Pt has also developed recurrent hematuria--evaluated by urology. Pt seen by oncology, recommends holding Eliquis. Cardiology consulted for termite control representative recommendations of eliquis since plan is to D/C to ECF today. Pt denies any acute complaints currently. Echo 10/2015 EF 55%, moderate LVH, bioprosthetic valve not well visualized but no significant . MG 11mmHg. LHC 2011 mild nonobstructive CAD. Past Med Surg Social Fam HX - Past Medical History Medical history: arthritis, atrial fibrillation, cancer (metastatic prostate), COPD, coronary artery disease, CVA, diabetes (type II), GERD, hyperlipidemia, hypertension, renal disease (CKD III), valvular heart disease Psychiatric history: anxiety, depression - Past Surgical History Surgical History: coronary bypass (CABG), heart valve replacement, other (left nephrostomy tube placement) - Social History Smoking Status: Unknown if ever smoked Smokeless Tobacco Status: No Alcohol use: unknown Drug use: unknown - Family History Father Living Status: Hx Family Cardiac Disorders: Yes Medications and Allergies Acetaminophen [Tylenol] 325 mg PO BID PRN 10/17/15 [History] Allopurinol [Zyloprim 300 MG] 300 mg PO DAILY 10/17/15 [History] Ascorbic Acid [Vitamin C] 1,000 mg PO DAILY 10/17/15 [History] Carboxymethylcellulos/Glycerin [Refresh Optive Eye Drops] 1 drop OP QID [History] Docusate Sodium [Colace] 100 mg PO BID 10/17/15 [History] Insulin Glargine [Lantus] 14 unit SQ HS 10/17/15 [History] Ipratropium/Albuterol Neb [Duoneb] 3 ml IH Q6H PRN 10/17/15 [History] Modafinil [Provigil] 400 mg PO QAM 10/17/15 [History] Multivitamin [Multivitamins] 1 tab PO QAM 10/17/15 [History] Omeprazole [PriLOSEC] 40 mg PO DAILY 10/17/15 [History] Saliva Stimulant [Biotene Moisturizing Rinse] 5 spray PO BID 10/17/15 [History] Bicalutamide [Casodex] 50 mg PO DAILY 05/24/16 [History] Capsaicin 0.025% [Trixaicin] 1 appl TP DAILY PRN 05/24/16 [History] Pyridoxine HCl [Vitamin B-6] 100 mg PO DAILY 05/24/16 [History] Gabapentin [Neurontin] 300 mg PO TID 11/17/16 [History] Amlodipine [Norvasc] 5 mg PO DAILY #30 tablet 11/27/16 [Rx] Sertraline [Zoloft] 50 mg PO QAM #30 tablet 11/30/16 [Rx] Albuterol Sulfate [Proair Hfa] 1 puff IH Q6H PRN 12/20/16 [History] Amino Acids/Protein Hydrolys [Pro-Stat Awc Liquid Packet] 30 ml PO QAM 12/20/16 [History] Apixaban [Eliquis] 5 mg PO BID 12/20/16 [History] Aspirin Enteric Coated [Aspirin EC] 81 mg PO DAILY 12/20/16 [History] Atorvastatin [Lipitor] 40 mg PO HS 12/20/16 [History] Benzocaine/Menthol [Cepacol Sore Throat Lozenge] 1 lozenge PO Q6H PRN 12/20/16 [ History] Calcium Carbonate [Calcium] 1,000 mg PO BID 12/20/16 [History] Ferrous Gluconate 324 mg PO BID 12/20/16 [History] Furosemide [Lasix] 80 mg PO QAM 12/20/16 [History] Insulin LISPRO [HumaLOG] 2 - 12 units SQ ACHS 12/20/16 [History] Lisinopril 2.5 mg PO BID 12/20/16 [History] OxyCODONE Immed Rel [Roxicodone 5 MG] 5 mg PO Q4H PRN 12/20/16 [History] Tamsulosin [Flomax] 0.4 mg PO DAILY 12/20/16 [History] U-Lactin 1 appl TP BID 12/20/16 [History] Allergies IVP dye Allergy (Uncoded 10/17/15 06:47) Vomiting All Systems Review: A 10-system review of systems was performed and is negative for pertinent findings except as documented above in the HPI. - Genitourinary Genitourinary: hematuria Physical Examination Vital Signs, Last 4 Hours Temp Pulse Resp BP Pulse Ox 12/27/16 11:13 97.7 F 86 18 141/89 99 12/27/16 11:05 16 141/89 93 L Vital Signs Temp Pulse Resp BP Pulse Ox 12/27/16 11:13 97.7 F 86 18 141/89 99 12/27/16 11:05 16 141/89 93 L 12/27/16 07:27 16 121/80 88 L 12/27/16 06:57 98.0 F 86 20 121/80 92 L 12/27/16 04:06 91 L 12/27/16 03:32 97.4 F L 81 20 134/90 94 L 12/26/16 23:53 96 12/26/16 23:36 97.7 F 84 17 138/85 91 L 12/26/16 23:34 18 91 L 12/26/16 19:27 16 91 L 12/26/16 19:09 98.4 F 82 14 140/93 93 L 12/26/16 17:17 98.7 F 12/26/16 17:00 82 12/26/16 15:20 15 160/105 96 Intake and Output 12/26/16 12/27/16 12/27/16 23:59 07:59 15:59 Intake Total 60 / 60 200 / 200 120 / 120 Output Total 350 / 350 725 / 725 500 / 500 Balance -290 / -290 -525 / -525 -380 / -380 Intake: IV Fluids 100 / 100 Maxipime 1,000 MG In 100 / 100 Dextrose 5% (Minibag+) 100 ML 100 ML @ 200 mls/ hr IVPB Q12HR [facility] Rx#: [id number] Oral 60 / 60 100 / 100 120 / 120 Output: Urine 350 / 350 725 / 725 500 / 500 Stool 0 / 0 Other: Meal Lunch Percent of Meal Consumed 50% Stool Size Small Stool Consistency loose Stool Color Brown # Voids 1 2 # Urine Diapers 1 # Bowel Movements 1 Weight 129.682 kg Blood Glucose* 98 108 131 Patient Weight 12/27/16 23:59 Weight 129.682 kg General: Conversant, No Apparent Distress HEENT: Atraumatic, Normocephaly, Mucus Membranes Moist Neck: No JVD, Normal carotid pulses Cardiac: Other (irregularly irregular ) Lungs: Normal Breath Sounds, No Wheeze, Rales, Rhonchi Neuro: Alert and responsive, No focal deficits noted Abdomen: Soft, Non-Tender Skin: No rashes noted on visualized skin Musculoskeletal: No Chest Wall Tenderness Extremities: No Clubbing, No Cyanosis, No Edema, Normal Pulses Results 12/27/16 07:13 12/27/16 07:13 Lab Results 12/27/16 12/27/16 07:13 07:13 WBC 6.3 Hgb 10.1 L Hct 32.2 L Plt Count 247 Sodium 136 Potassium 4.4 Chloride 100 Carbon Dioxide 24 BUN 22 Creatinine 1.14 Glucose 102 H Calcium 9.6 Short CBC 12/27/16 Range/Units 07:13 WBC 6.3 (4.3-11.1) K/mcL Hgb 10.1 L (12.9-16.9) g/dL Hct 32.2 L (37.5-50.1) % Plt Count 247 (140-400) K/mcL Neutrophils # 4.3 (1.6-8.9) K/mcL BMP 12/27/16 Range/Units 07:13 Sodium 136 (136-145) mEq/L Potassium 4.4 (3.5-4.5) mEq/L Chloride 100 (98-109) mEq/L Carbon Dioxide 24 (19-29) mEq/L BUN 22 (8-26) mg/dL Creatinine 1.14 (0.72-1.25) mg/dL Glucose 102 H (70-99) mg/dL Calcium 9.6 (8.6-10.8) mg/dL Active Medications Acetaminophen (Tylenol) 650 mg PO Q6HR PRN PRN Reason: Mild Pain(1-3) or fever>100.4 Stop: 06/22/17 04:52 Last Admin: 12/26/16 21:04 Dose: 650 mg Acetaminophen/Hydrocodone Bitart (Shelby 5-325 Mg) 1 tab PO Q4HR PRN PRN Reason: Moderate Pain (4-6) Stop: 06/22/17 04:52 Last Admin: 12/26/16 20:20 Dose: 1 tab Albuterol/Ipratropium (Duoneb) 3 ml IH [id number] FEI PRN Reason: Protocol Stop: 06/22/17 08:01 Last Admin: 12/27/16 11:05 Dose: 3 ml Amlodipine Besylate (Norvasc) 10 mg PO DAILY FEI PRN Reason: Protocol Stop: 06/28/17 09:01 Last Admin: 12/27/16 08:59 Dose: 10 mg Artificial Tears (Akwa Tears) 1 drop OP QID FEI Stop: 06/26/17 13:01 Last Admin: 12/27/16 09:08 Dose: 1 drop Ascorbic Acid (Vitamin C) 1,000 mg PO DAILY FEI Stop: 06/26/17 12:08 Last Admin: 12/27/16 09:01 Dose: 1,000 mg Aspirin (Aspirin Ec) 81 mg PO DAILY FEI Stop: 06/26/17 12:08 Last Admin: 12/27/16 08:59 Dose: 81 mg Atorvastatin Calcium (Lipitor) 40 mg PO HS FEI Stop: 06/26/17 21:01 Last Admin: 12/26/16 20:20 Dose: 40 mg Benzonatate (Tessalon) 100 mg PO TID PRN PRN Reason: Cough Stop: 06/24/17 22:38 Calcium Carbonate (Tums) 1,000 mg PO BID FEI Stop: 06/26/17 21:01 Last Admin: 12/27/16 08:58 Dose: 1,000 mg Carvedilol (Coreg) 3.125 mg PO BIDWM FEI PRN Reason: Protocol Stop: 06/27/17 13:45 Last Admin: 12/27/16 09:00 Dose: 3.125 mg Dextrose/Water (Dextrose 50% (Syg)) 25 ml IVP AD PRN PRN Reason: Hypoglycemia Stop: 06/22/17 05:10 Docusate Sodium (Colace) 100 mg PO BID FEI PRN Reason: Protocol Stop: 06/26/17 21:01 Last Admin: 12/27/16 09:01 Dose: 100 mg Ferrous Sulfate (Ferrous Sulfate) 324 mg PO BID FEI Stop: 06/26/17 21:01 Last Admin: 12/27/16 09:01 Dose: 324 mg Furosemide (Lasix) 80 mg PO DAILY FEI Stop: 06/27/17 14:01 Last Admin: 12/27/16 09:00 Dose: 80 mg Glucagon (Glucagen) 1 mg IM ONCE PRN PRN Reason: Hypoglycemia Stop: 06/22/17 05:10 Glucose (Gluctose) 15 gm PO ONCE PRN PRN Reason: Hypoglycemia Stop: 06/22/17 05:10 Glucose (Gluctose) 30 gm PO ONCE PRN PRN Reason: Hypoglycemia Stop: 06/22/17 05:10 Hydralazine HCl (Hydralazine) 10 mg IVP Q6HR PRN PRN Reason: Hypertension Stop: 06/27/17 16:27 Hydromorphone HCl (Dilaudid) 0.5 mg IVP Q4HR PRN PRN Reason: Severe Pain (7-10) Stop: 06/22/17 04:52 Cefepime HCl 1,000 mg/ (Dextrose) 100 mls @ 200 mls/hr IVPB Q12HR [facility] Stop: 06/23/17 06:51 Last Infusion: 12/27/16 06:33 Dose: Infused Insulin Detemir (Levemir) 20 unit 0.15 unit/kg (20 unit) SQ [facility] Stop: 06/22/17 21:01 Last Admin: 12/26/16 22:15 Dose: Not Given Insulin Human Lispro (Humalog) 0 units SQ HS [facility] PRN Reason: Protocol Stop: 06/23/17 21:01 Last Admin: 12/26/16 22:12 Dose: Not Given Insulin Human Lispro (Humalog) 0 units SQ TIDAC [facility] PRN Reason: Protocol Stop: 06/23/17 11:31 Last Admin: 12/27/16 09:03 Dose: Not Given Naloxone HCl (Narcan) 0.4 mg IVP Q2MIN PRN PRN Reason: Opioid Reversal Stop: 06/22/17 04:52 Ondansetron HCl (Zofran) 4 mg IVP Q8HR PRN PRN Reason: Nausea And Vomiting Stop: 06/22/17 04:52 Pantoprazole Sodium (Protonix) 40 mg IVP DAILY [facility] Stop: 06/28/17 09:01 Last Admin: 12/27/16 09:02 Dose: 40 mg Phenazopyridine HCl (Pyridium) 200 mg PO TID [facility] Stop: 06/24/17 15:01 Last Admin: 12/27/16 08:59 Dose: 200 mg Pyridoxine HCl (Vitamin B-6) 100 mg PO DAILY [facility] Stop: 06/27/17 09:01 Last Admin: 12/27/16 09:01 Dose: 100 mg Sertraline HCl (Zoloft) 50 mg PO DAILY [facility] Stop: 06/25/17 13:01 Last Admin: 12/27/16 09:00 Dose: 50 mg Tamsulosin HCl (Flomax) 0.4 mg PO DAILY [facility] PRN Reason: Protocol Stop: 06/26/17 12:08 Last Admin: 12/27/16 09:00 Dose: 0.4 mg - Imaging and Cardiology Echo: report reviewed Cardiac cath: report reviewed - EKG Interpretation EKG results cardiology: other (24 hour tele AVG HR 84, A-Fib.) Consult Discharge Plan - Plan Referrals: [facility] [Primary Care Provider] - <Karen Arteaga - Last Filed: 12/27/16 15:09> Assessment and Plan Discussion w patient/family: The assessment and plan as outlined above was discussed with the patient and/or family members who expressed understanding and agreement. All questions were answered. Thank you for involving us in the care of your patient. Please call with any questions. History of Present Illness History of present illness: Mr. Blas is a 71 year old male All Systems Review: A 10-system review of systems was performed and is negative for pertinent findings except as documented above in the HPI. Physical Examination Vital Signs, Last 4 Hours Temp Pulse Resp BP Pulse Ox 12/27/16 14:59 97.6 F 87 18 132/79 93 L 12/27/16 11:13 97.7 F 86 18 141/89 99 12/27/16 11:05 16 141/89 93 L Results 12/27/16 07:13 12/27/16 07:13 Lab Results 12/27/16 12/27/16 07:13 07:13 WBC 6.3 Hgb 10.1 L Hct 32.2 L Plt Count 247 Sodium 136 Potassium 4.4 Chloride 100 Carbon Dioxide 24 BUN 22 Creatinine 1.14 Glucose 102 H Calcium 9.6 - Attending Attestation I examined this patient and my medical decision-making was reviewed with the DROP CLIPPER/PA/Advanced Practice Nurse/Resident Physician. I agree with the documented findings, disposition and treatment plan. Patient admitted multiple times for bleeding with profound drop in blood count. I discussed this with the patient. The risk of continuing eliquis outweighs its benefits at this time. I agree with stopping it. He can be re-evaluated as an outpatient. We will sign off. Please call with questions.
--- NOTE | 2016-12-27 14:50 | Discharge Summary ---
Date of Encounter: 12/27/16 Time of Encounter: 13:10 - Discharge Diagnosis (1) Gross hematuria Priority: Primary Status: Acute Comments: Returned. Hgb is stable in increased after PRBC transfusion, today is 9.4. Urine is orange, however, pt is on pyridium. Pt has been seen by Urology and will follow up as needed. (2) Acute respiratory failure with hypoxia and hypercapnia Priority: Secondary Status: Acute Comments: Pt is resting quietly without oxygen at this time. His most recent set of vitals shows 97% on room air, however, he has been as low as 88% on room air. His lungs are clear. he denies cough or chest pain and is back at his baseline. (3) History of prostate cancer Priority: Secondary Status: Chronic Comments: Pt has a history of prostate cancer that has metastasized to the bladder. Pt is managed by oncology. (4) Atrial fibrillation Priority: Secondary Status: Chronic Comments: History of a-fib, rate controlled on a beta-nilesh. He has been anticoagulated with Eliquis, however it was stopped due to GI Bleed and hematuria. Pt was seen by cardiology today and per their recommendation, it will be stopped. Qualifiers: Atrial fibrillation type: chronic Qualified Code(s): I48.2 - Chronic atrial fibrillation (5) Acute worsening of stage 3 chronic kidney disease Priority: Secondary Status: Chronic Comments: Renal function labs have returned to normal. Pt will follow up with ECF physician. Avoid nephrotoxins Monitor labs (6) DM II (diabetes mellitus, type II), controlled Priority: Secondary Status: Chronic Comments: A1c within normal range, glucose well controlled during admission. 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 Plan as above. - Discharge Medications Prescriptions: Sertraline [Zoloft] 50 mg PO DAILY #30 tablet Home Medications: Acetaminophen [Tylenol] 325 mg PO BID PRN 10/17/15 [History] Allopurinol [Zyloprim 300 MG] 300 mg PO DAILY 10/17/15 [History] Ascorbic Acid [Vitamin C] 1,000 mg PO DAILY 10/17/15 [History] Carboxymethylcellulos/Glycerin [Refresh Optive Eye Drops] 1 drop OP QID [History] Docusate Sodium [Colace] 100 mg PO BID 10/17/15 [History] Insulin Glargine [Lantus] 14 unit SQ HS 10/17/15 [History] Ipratropium/Albuterol Neb [Duoneb] 3 ml IH Q6H PRN 10/17/15 [History] Modafinil [Provigil] 400 mg PO QAM 10/17/15 [History] Multivitamin [Multivitamins] 1 tab PO QAM 10/17/15 [History] Omeprazole [PriLOSEC] 40 mg PO DAILY 10/17/15 [History] Saliva Stimulant [Biotene Moisturizing Rinse] 5 spray PO BID 10/17/15 [History] Capsaicin 0.025% [Trixaicin] 1 appl TP DAILY PRN 05/24/16 [History] Pyridoxine HCl [Vitamin B-6] 100 mg PO DAILY 05/24/16 [History] Gabapentin [Neurontin] 300 mg PO TID 11/17/16 [History] Amlodipine [Norvasc] 5 mg PO DAILY #30 tablet 11/27/16 [Rx] Sertraline [Zoloft] 50 mg PO QAM #30 tablet 11/30/16 [Rx] Albuterol Sulfate [Proair Hfa] 1 puff IH Q6H PRN 12/20/16 [History] Amino Acids/Protein Hydrolys [Pro-Stat Awc Liquid Packet] 30 ml PO QAM 12/20/16 [History] Aspirin Enteric Coated [Aspirin EC] 81 mg PO DAILY 12/20/16 [History] Atorvastatin [Lipitor] 40 mg PO HS 12/20/16 [History] Benzocaine/Menthol [Cepacol Sore Throat Lozenge] 1 lozenge PO Q6H PRN 12/20/16 [ History] Calcium Carbonate [Calcium] 1,000 mg PO BID 12/20/16 [History] Ferrous Gluconate 324 mg PO BID 12/20/16 [History] Furosemide [Lasix] 80 mg PO QAM 12/20/16 [History] Insulin LISPRO [HumaLOG] 2 - 12 units SQ ACHS 12/20/16 [History] Lisinopril 2.5 mg PO BID 12/20/16 [History] OxyCODONE Immed Rel [Roxicodone 5 MG] 5 mg PO Q4H PRN 12/20/16 [History] Tamsulosin [Flomax] 0.4 mg PO DAILY 12/20/16 [History] U-Lactin 1 appl TP BID 12/20/16 [History] Ascorbic Acid [Vitamin C] 1,000 mg PO DAILY tablet 12/27/16 [Rx] Carvedilol [Coreg] 3.125 mg PO BIDWM tablet 12/27/16 [Rx] HydrALAZINE 10 mg IVP Q6HR PRN #0 vial 12/27/16 [Rx] Phenazopyridine [Pyridium] 200 mg PO TID tablet 12/27/16 [Rx] Sertraline [Zoloft] 50 mg PO DAILY #30 tablet 12/27/16 [Rx] Allergies/Adverse Reactions: Allergies IVP dye Allergy (Uncoded 10/17/15 06:47) Vomiting Date of admission: 12/21/16 03:08 [facility] care physician: [facility] Consults: 12/21/16 05:07 Consult to Surgery [CONS] Routine Consulting Provider: [facility] Reason for Consult: Concern for potential GI bleed, recenty admitted with anemia and bleeding through nephrostomy tubes. Dr. Mcginnis was called from the ER Call Completed: Yes 12/21/16 05:14 Consult to Critical Care [CONS] Routine Consulting Provider: [facility]m [facility] [place] Reason for Consult: Patient has symptomatic anemia (on Eliquis for A. Fib), with an extensive prior medical history who also developed AMS and respiratory difficulty Call Completed: No 12/21/16 07:56 Consult to Invasive Line Access Team [CONS] Stat Reason for Consult: IV access Line Type: PICC 12/22/16 08:18 Consult to Urology [CONS] Routine Consulting Provider: Urology [place] Reason for Consult: hematuria, recent hx of hydronephrosis s/p antegrade stent placement Time Notified: 08:21 Call Completed: Yes 12/22/16 15:29 Consult to Cardiopulmonary Technician [CONS] Routine Reason for SW Consult: Facility placement 12/26/16 10:54 Consult to Cardiopulmonary Technician [CONS] Routine Reason for SW Consult: going back to rehab 12/26/16 11:21 Consult to Oncology Hematology [CONS] Routine Consulting Provider: Rosaline Barton Reason for Consult: metastatic prostate cancer, on eliquis, symptomatic anemia x2 recently from hematuria Time Notified: 11:23 Call Completed: Yes 12/27/16 13:45 Consult to Cardiology [CONS] Routine Comment: Consulting Provider: Cardiology [facility] Reason for Consult: continue eliquis? Pt was placed on it for a-fib, is having hematuria. Pt is supposed to go back to ECF today. Time Notified: 13:46 Call Completed: Yes Discharging clinician: Sintia Manning Anticipated date of discharge: 12/27/16 - Patient Status Disposition: Transfer SNF Functional capacity at discharge: wheelchair bound Overall status at discharge: patient is back to baseline - Discharge Instructions Follow Up With: [facility] [Primary Care Provider] - Additional Instructions: Please follow up with oncology, urology, pulmonology as needed. Return to ED as needed for any other problems or concerns. - Diet and Activity Activity: increase activity as tolerated Diet: advance to your usual diet Hospital course: Mr. Blas is a 71 year old male - Time Spent with Patient Total time spent providing and/or coordinating discharge services: - Constitutional Vitals: Temp Pulse Resp BP Pulse Ox 97.7 F 86 18 141/89 99 12/27/16 11:13 12/27/16 11:13 12/27/16 11:13 12/27/16 11:13 12/27/16 11:13 General appearance: Present: cooperative, A&O X 3, morbidly obese, pleasant, answers questions appropriately - Head Head exam: Present: normal inspection - Eye Eye exam: Present: normal appearance, conjuntiva pink - ENT ENT exam: Present: mucous membranes moist, normal exam - Neck Neck exam general surgery: Present: normal inspection. Absent: lymphadenopathy , tenderness - Respiratory Respiratory exam: Present: decreased breath sounds, CTAB. Absent: rales, respiratory distress, rhonchi, stridor, wheezes, tachypnea - Cardiovascular Cardiovascular exam: Present: RRR, +S1, +S2, tachycardia - GI/Abdominal GI/Abdominal exam: Present: distended, hyperactive bowel sounds, soft. Absent: hepatomegaly, tenderness - Extremities Exam Extremities exam: Present: normal capillary refill, normal inspection, pedal edema, warm, radial pulses palpable and symetrical. Absent: tenderness - Neurological Exam Neurological exam: Present: alert, oriented X3, strengths equal and symetr throughout. Absent: no focal deficits, pronater drift, facial droop, speech deficit - VTE Documentation of Mechanical Device: Intermittent pneumatic compression device
[2016-12-27 15:00] VITALS: BP 132/79
--- NOTE | 2016-12-27 15:27 | Physician Discharge Referral ---
ExtendedCare Referral Info Transfer To: [facility] Provider in Charge after Transfer: Other Institutional Level of Care: Intermediate - MR - Diagnosis (1) Gross hematuria Status: Acute (2) Acute respiratory failure with hypoxia and hypercapnia Priority: Secondary Status: Resolved (3) History of prostate cancer Priority: Primary Status: Chronic (4) Atrial fibrillation Priority: Secondary Status: Chronic (5) Acute worsening of stage 3 chronic kidney disease Priority: Secondary Status: Chronic (6) DM II (diabetes mellitus, type II), controlled Status: Chronic (7) Chronic anticoagulation Priority: Secondary Status: Chronic Expected Duration of Placement: 6 months Prognosis: Poor Aware of Diagnosis: Patient, Family - Transfer Medications Prescriptions: Sertraline [Zoloft] 50 mg PO DAILY #30 tablet Home Medications: Acetaminophen [Tylenol] 325 mg PO BID PRN 10/17/15 [History] Allopurinol [Zyloprim 300 MG] 300 mg PO DAILY 10/17/15 [History] Ascorbic Acid [Vitamin C] 1,000 mg PO DAILY 10/17/15 [History] Carboxymethylcellulos/Glycerin [Refresh Optive Eye Drops] 1 drop OP QID [History] Docusate Sodium [Colace] 100 mg PO BID 10/17/15 [History] Insulin Glargine [Lantus] 14 unit SQ HS 10/17/15 [History] Ipratropium/Albuterol Neb [Duoneb] 3 ml IH Q6H PRN 10/17/15 [History] Modafinil [Provigil] 400 mg PO QAM 10/17/15 [History] Multivitamin [Multivitamins] 1 tab PO QAM 10/17/15 [History] Omeprazole [PriLOSEC] 40 mg PO DAILY 10/17/15 [History] Saliva Stimulant [Biotene Moisturizing Rinse] 5 spray PO BID 10/17/15 [History] Capsaicin 0.025% [Trixaicin] 1 appl TP DAILY PRN 05/24/16 [History] Pyridoxine HCl [Vitamin B-6] 100 mg PO DAILY 05/24/16 [History] Gabapentin [Neurontin] 300 mg PO TID 11/17/16 [History] Amlodipine [Norvasc] 5 mg PO DAILY #30 tablet 11/27/16 [Rx] Sertraline [Zoloft] 50 mg PO QAM #30 tablet 11/30/16 [Rx] Albuterol Sulfate [Proair Hfa] 1 puff IH Q6H PRN 12/20/16 [History] Amino Acids/Protein Hydrolys [Pro-Stat Awc Liquid Packet] 30 ml PO QAM 12/20/16 [History] Aspirin Enteric Coated [Aspirin EC] 81 mg PO DAILY 12/20/16 [History] Atorvastatin [Lipitor] 40 mg PO HS 12/20/16 [History] Benzocaine/Menthol [Cepacol Sore Throat Lozenge] 1 lozenge PO Q6H PRN 12/20/16 [ History] Calcium Carbonate [Calcium] 1,000 mg PO BID 12/20/16 [History] Ferrous Gluconate 324 mg PO BID 12/20/16 [History] Furosemide [Lasix] 80 mg PO QAM 12/20/16 [History] Insulin LISPRO [HumaLOG] 2 - 12 units SQ ACHS 12/20/16 [History] Lisinopril 2.5 mg PO BID 12/20/16 [History] OxyCODONE Immed Rel [Roxicodone 5 MG] 5 mg PO Q4H PRN 12/20/16 [History] Tamsulosin [Flomax] 0.4 mg PO DAILY 12/20/16 [History] U-Lactin 1 appl TP BID 12/20/16 [History] Ascorbic Acid [Vitamin C] 1,000 mg PO DAILY tablet 12/27/16 [Rx] Carvedilol [Coreg] 3.125 mg PO BIDWM tablet 12/27/16 [Rx] HydrALAZINE 10 mg IVP Q6HR PRN #0 vial 12/27/16 [Rx] Phenazopyridine [Pyridium] 200 mg PO TID tablet 12/27/16 [Rx] Sertraline [Zoloft] 50 mg PO DAILY #30 tablet 12/27/16 [Rx] Allergies/Adverse Reactions: Allergies IVP dye Allergy (Uncoded 10/17/15 06:47) Vomiting - Respiratory Orders Oxygen / L per min Smoking Cessation: Smoking cessation has been advised. For more information, call the [place] [employer] Quit Line at 4-351-KBXX-NOW. - Ancillary Orders May use pressure relief devices daily prn, May go on VIC w/family/respon constitution party w /meds at nurse discretion PRN - Advance Directives Code Status: Full Code - Mobility Orders Bedrest - Rehabiliation Orders Rehab Potential: Fair Rehab Orders: ROM Exercises, Evaluation for Occupational Therapy, Evaluation for Speech Therapy - Diet Orders No Concentrated Sweets, Renal, Cardiac CERTIFICATION: I certify that the transfer of the above named patient to an Extended Care Facility is necessary for the continuing treatment of the diagnosis listed. The above information is true and accurate reflection of patient's current condition. Confidential - Redisclosure prohibited without a patient's written consent.
== END 2016-12-27 16:46 | DRG 189 ==
LOC: EMEROO 19:22 → ICNU 19:22 → 3BNU 12-26 18:22
PROVIDERS: ADMIT Internal Medicine; ATTEND Internal Medicine Pulmonary Disease

== ENCOUNTER 2016-12-30 06:25 | Inpatient (IN) ==
--- NOTE | 2016-12-30 07:05 | Emergency Department Note ---
Disposition Clinical Impression: Marino hematuria Disposition: Admitted As Inpatient Condition: Fair [facility] Care Provider[facility] - Forms: Work/School Release, ED Satisfaction Letter Time of Disposition: 09:19 Male Urogenital HPI - General Chief complaint: ED Abdominal Pain Time Seen by Provider: 12/30/16 06:33 Source: patient, EMS Limitations: no limitations Nursing Notes Reviewed: Yes Vital Signs Reviewed: Yes - History of Present Illness HPI Narrative: 71-year-old alert and oriented male presents to the emergency department by EMS from an outside F for evaluation of penile pain, suprapubic pain, and gross hematuria that began suddenly yesterday evening. Patient complains of running with urination that he rates a 10 out of 10 on a 10 point scale. He also complains of urinary urgency. the patient was admitted on 12/21/16 for gross hematuria, acute respiratory failure, and worsening of his stage III chronic kidney disease. During the stay, the patient was evaluated by urology, oncology , and cardiology. 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 During his stay, he had underwent 2 days of continuous bladder irrigation. A decision was made between the typing secretary and the hospitalist about stopping his Eliquis due to recurrent and GI bleeds. The patient was discharged back to the [facility] on 12/27 on aspirin alone. His Eliquis was discontinued. The patient states symptoms began abruptly yesterday evening. He denies any associated fever, abdominal pain, chills, nausea, vomiting, blood in his stool. Onset (ago): hour(s) Duration: gradually worsening Location: penis, other (suprapubic) Improves with: none Worsens with: urination Reports: hematuria, dysuria. Denies: fever - Related Data Home Medications Medication Instructions Recorded Confirmed Acetaminophen [Tylenol] 325 mg PO BID PRN 10/17/15 12/20/16 Allopurinol [Zyloprim 300 MG] 300 mg PO DAILY 10/17/15 12/20/16 Ascorbic Acid [Vitamin C] 1,000 mg PO DAILY 10/17/15 12/20/16 Carboxymethylcellulos/Glycerin 1 drop OP QID 10/17/15 12/20/16 [Refresh Optive Eye Drops] Docusate Sodium [Colace] 100 mg PO BID 10/17/15 12/20/16 Insulin Glargine [Lantus] 14 unit SQ HS 10/17/15 12/20/16 Ipratropium/Albuterol Neb [Duoneb] 3 ml IH Q6H PRN 10/17/15 12/20/16 Modafinil [Provigil] 400 mg PO QAM 10/17/15 12/20/16 Multivitamin [Multivitamins] 1 tab PO QAM 10/17/15 12/20/16 Omeprazole [PriLOSEC] 40 mg PO DAILY 10/17/15 12/20/16 Saliva Stimulant [Biotene 5 spray PO BID 10/17/15 12/20/16 Moisturizing Rinse] Capsaicin 0.025% [Trixaicin] 1 appl TP DAILY PRN 05/24/16 12/20/16 Pyridoxine HCl [Vitamin B-6] 100 mg PO DAILY 05/24/16 12/20/16 Gabapentin [Neurontin] 300 mg PO TID 11/17/16 12/20/16 Albuterol Sulfate [Proair Hfa] 1 puff IH Q6H PRN 12/20/16 12/20/16 Amino Acids/Protein Hydrolys 30 ml PO QAM 12/20/16 12/20/16 [Pro-Stat Awc Liquid Packet] Aspirin Enteric Coated [Aspirin EC] 81 mg PO DAILY 12/20/16 12/20/16 Atorvastatin [Lipitor] 40 mg PO HS 12/20/16 12/20/16 Benzocaine/Menthol [Cepacol Sore 1 lozenge PO Q6H PRN 12/20/16 12/20/16 Throat Lozenge] Calcium Carbonate [Calcium] 1,000 mg PO BID 12/20/16 12/20/16 Ferrous Gluconate 324 mg PO BID 12/20/16 12/20/16 Furosemide [Lasix] 80 mg PO QAM 12/20/16 12/20/16 Insulin LISPRO [HumaLOG] 2 - 12 units SQ ACHS 12/20/16 12/20/16 Lisinopril 2.5 mg PO BID 12/20/16 12/20/16 Tamsulosin [Flomax] 0.4 mg PO DAILY 12/20/16 12/20/16 U-Lactin 1 appl TP BID 12/20/16 12/20/16 Previous Rx's Medication Instructions Recorded Amlodipine [Norvasc] 5 mg PO DAILY #30 tablet 11/27/16 Sertraline [Zoloft] 50 mg PO QAM #30 tablet 11/30/16 Ascorbic Acid [Vitamin C] 1,000 mg PO DAILY tablet 12/27/16 Carvedilol [Coreg] 3.125 mg PO BIDWM tablet 12/27/16 HydrALAZINE 10 mg IVP Q6HR PRN #0 vial 12/27/16 OxyCODONE Immed Rel [Roxicodone 5 5 mg PO Q4H PRN #18 tablet 12/27/16 MG] Phenazopyridine [Pyridium] 200 mg PO TID tablet 12/27/16 Sertraline [Zoloft] 50 mg PO DAILY #30 tablet 12/27/16 Allergies Allergy/AdvReac Type Severity Reaction Status Date / Time IVP dye Allergy Vomiting Uncoded 10/17/15 06:47 All systems ED: reviewed and negative except as stated. Constitutional: Denies: fever, chills, weakness, weight change Eyes: Denies: eye pain, eye discharge, vision change ENT ED: Denies: ear pain, throat pain, dental pain, hearing loss, epistaxis, congestion, dysphagia Cardiovascular: Denies: chest pain, palpitations, dyspnea on exertion, edema, syncope Respiratory: Denies: cough, dyspnea, wheezes, hemoptysis, stridor Gastrointestinal: Denies: abdominal pain, nausea, vomiting, diarrhea, constipation, hematemesis, melena, hematochezia Genitourinary: Reports: as per HPI, urgency, dysuria, hematuria. Denies: frequency Musculoskeletal: Denies: back pain, neck pain, arthralgia, myalgia Integumentary: Denies: rash, abrasion, lesions Neurological: Denies: headache, weakness, numbness, paresthesias, confusion, abnormal gait, vertigo Psychiatric: Denies: anxiety, depression, suicidal thoughts, homicidal thoughts , auditory hallucinations, visual hallucinations Endocrine: Denies: fatigue Hematological/Lymphatic: Denies: easy bleeding, easy bruising Allergic/Immunologic: Denies: facial swelling, urticaria Past Medical History - Past Medical History Attestation: Yes The following information was validated with the patient. Source: patient Medical history: Reports: arthritis, atrial fibrillation, cancer, COPD, coronary artery disease, CVA, diabetes, GERD, hyperlipidemia, hypertension, renal disease, valvular heart disease Surgical history: Reports: coronary bypass (CABG), heart valve replacement, other (left nephrostomy tube placement) Psychiatric history: Reports: anxiety, depression - Social History Smoking Status: Unknown if ever smoked Smokeless Tobacco Status: No Alcohol use: Reports: unknown Drug use: Reports: unknown Physical Exam - General Limitations: no limitations General appearance: alert - Head Head exam: normal inspection - Eye Eye exam: Present: normal appearance - ENT ENT exam: mucous membranes moist - Neck Neck exam: Present: normal inspection, full ROM, trachea midline. Absent: lymphadenopathy - Chest Chest inspection: Present: normal inspection, symmetric chest wall rise - Respiratory Respiratory exam: Present: normal lung sounds bilaterally - Cardiovascular Cardiovascular exam: Present: regular rate, normal rhythm, normal heart sounds - Rectal Exam Rectal exam: Present: normal inspection, normal rectal tone, other (hemoccult sent to lab) - Male exam: Present: normal testicular lie, urethral discharge (bloody, clots present). Absent: penile swelling, erythema, priapism, ulcerations - Extremities Exam Extremities exam: Present: normal inspection, full ROM - Back Exam Back exam: Present: normal inspection, full ROM. Absent: tenderness, CVA tenderness (R), CVA tenderness (L) - Neurological Exam Neurological exam: Present: alert, oriented X3, normal gait - Psychiatric Psychiatric exam: Present: normal affect, normal mood - Skin Skin exam: Present: warm, dry, intact, normal color Course Course Narrative: 0845: A three-way Ramos was placed after bladder scan showed 0 mL of urine. Approximately 100 mL of frankly bloody urine returned into the Ramos bag after placement of the catheter. I have paged Dr. Forrester, on-call urologist. I have also discussed this patient's case with Dr. Javier, who has had a face-to- face evaluation with the patient and agrees with the above plan. 0910: I spoke with Dr. Forrester, urology electronic parts designer. Dr. Forrester recommends initiation of continuous bladder irrigation. Dr. Forrester states that the patient needs to be admitted, he will consult however will not take the patient directly under his service. Dr. Forrester is well aware of this patient and has treated him on his most recent hospital admission. I discussed this plan with Dr. Javier. Dr. Javier is in agreement with admission to the hospitalist service. 0925: I spoke with Dr. Rivas, who accepts the patient for admission to the hospitalist service. Vital Signs Temperature 97.7 F 12/30/16 06:32 Pulse Rate 93 12/30/16 06:32 Respiratory Rate 18 12/30/16 06:32 Blood Pressure 137/82 12/30/16 06:32 O2 Sat by Pulse Oximetry 100 12/30/16 06:32 Temperature 97.7 F 12/30/16 06:32 Pulse Rate 83 12/30/16 08:51 Respiratory Rate 20 12/30/16 08:51 Blood Pressure 115/80 12/30/16 08:51 O2 Sat by Pulse Oximetry 96 12/30/16 08:51 Oxygen Delivery Oxygen Delivery Nasal Cannula Urogenital-Male - Medical Records Medical records reviewed: Yes I reviewed the patient's medical records. - Lab Data Lab results reviewed: Yes I reviewed the patient's lab results. Lab results narrative: Laboratory Last Values WBC 9.7 K/mcL (4.3-11.1) D 12/30/16 07:36 RBC 4.01 M/mcL (4.19-5.50) L 12/30/16 07:36 Hgb 10.5 g/dL (12.9-16.9) L 12/30/16 07:36 Hct 34.3 % (37.5-50.1) L 12/30/16 07:36 MCV 85.5 fL (83.0-100.0) 12/30/16 07:36 MCH 26.2 pg (28.0-33.3) L 12/30/16 07:36 MCHC 30.6 g/dL (31.6-35.5) L 12/30/16 07:36 RDW 16.1 % (11.5-14.5) H 12/30/16 07:36 Plt Count 243 K/mcL (140-400) 12/30/16 07:36 MPV 9.7 fL (9.4-12.4) 12/30/16 07:36 Immature Gran % 1.1 % (0-4) 12/30/16 07:36 Seg Neutrophils % 71.6 % 12/30/16 07:36 Lymphocytes % 12.5 % 12/30/16 07:36 Monocytes % 9.8 % 12/30/16 07:36 Eosinophils % 4.5 % 12/30/16 07:36 Basophils % 0.5 % 12/30/16 07:36 Neutrophils # 7.0 K/mcL (1.6-8.9) 12/30/16 07:36 Lymphocytes # 1.2 K/mcL (0.6-4.6) 12/30/16 07:36 Monocytes # 1.0 K/mcL (0.0-1.3) 12/30/16 07:36 Eosinophils # 0.4 K/mcL (0.0-0.6) 12/30/16 07:36 Basophils # 0.1 K/mcL (0.0-0.2) 12/30/16 07:36 PT 12.4 Seconds (9.4-12.1) H 12/30/16 07:36 INR 1.1 12/30/16 07:36 APTT 35.9 Seconds (26.0-36.0) 12/30/16 07:36 Sodium 142 mEq/L (136-145) 12/30/16 07:36 Potassium 4.7 mEq/L (3.5-4.5) H 12/30/16 07:36 Chloride 107 mEq/L (98-109) 12/30/16 07:36 Carbon Dioxide 22 mEq/L (19-29) 12/30/16 07:36 BUN 42 mg/dL (8-26) H 12/30/16 07:36 Creatinine 1.88 mg/dL (0.72-1.25) H 12/30/16 07:36 Est GFR ( Amer) 43 (> 60) L 12/30/16 07:36 Est GFR (Non-Af Amer) 36 (> 60) L 12/30/16 07:36 BUN/Creatinine Ratio 22 (6-26) 12/30/16 07:36 Glucose 137 mg/dL (70-99) H 12/30/16 07:36 Calculated Osmolality 307 (280-300) H 12/30/16 07:36 Calcium 9.4 mg/dL (8.6-10.8) 12/30/16 07:36 Stool Occult Blood Negative (Negative) 12/30/16 07:47 Result diagrams: 12/30/16 07:36 12/30/16 07:36 Lab Results 12/30/16 12/30/16 12/30/16 Range/Units 07:36 07:36 07:36 WBC 9.7 D (4.3-11.1) K/mcL RBC 4.01 L (4.19-5.50) M/mcL Hgb 10.5 L (12.9-16.9) g/dL Hct 34.3 L (37.5-50.1) % MCV 85.5 (83.0-100.0) fL MCH 26.2 L (28.0-33.3) pg MCHC 30.6 L (31.6-35.5) g/dL RDW 16.1 H (11.5-14.5) % Plt Count 243 (140-400) K/mcL MPV 9.7 (9.4-12.4) fL Immature Gran % 1.1 (0-4) % Seg Neutrophils % 71.6 % Lymphocytes % 12.5 % Monocytes % 9.8 % Eosinophils % 4.5 % Basophils % 0.5 % Neutrophils # 7.0 (1.6-8.9) K/mcL Lymphocytes # 1.2 (0.6-4.6) K/mcL Monocytes # 1.0 (0.0-1.3) K/mcL Eosinophils # 0.4 (0.0-0.6) K/mcL Basophils # 0.1 (0.0-0.2) K/mcL PT 12.4 H (9.4-12.1) Seconds INR 1.1 APTT 35.9 (26.0-36.0) Seconds Sodium 142 (136-145) mEq/L Potassium 4.7 H (3.5-4.5) mEq/L Chloride 107 (98-109) mEq/L Carbon Dioxide 22 (19-29) mEq/L BUN 42 H (8-26) mg/dL Creatinine 1.88 H (0.72-1.25) mg/dL Est GFR ( Amer) 43 L (> 60) Est GFR (Non-Af Amer) 36 L (> 60) BUN/Creatinine Ratio 22 (6-26) Glucose 137 H (70-99) mg/dL Calculated Osmolality 307 H (280-300) Calcium 9.4 (8.6-10.8) mg/dL Ur Specimen Adequacy Urine Color (Yellow) Urine Clarity (Clear) Urine pH (5.0-8.0) pH Units Ur Specific [place] (1.010-1.025) Urine Protein (Neg-Trace) mg/dL Urine Glucose (UA) (Normal) mg/dL Urine Ketones (Negative) mg/dL Urine Blood (Negative) Urine Nitrite (Negative) Urine Bilirubin (Negative) Urine Urobilinogen (Normal) mg/dL Ur Leukocyte Esterase (Negative) Urine Microscopic RBC Urine Microscopic WBC Ur Culture Indicated? (NO) Stool Occult Blood (Negative) 12/30/16 12/30/16 Range/Units 07:47 08:49 WBC (4.3-11.1) K/mcL RBC (4.19-5.50) M/mcL Hgb (12.9-16.9) g/dL Hct (37.5-50.1) % MCV (83.0-100.0) fL MCH (28.0-33.3) pg MCHC (31.6-35.5) g/dL RDW (11.5-14.5) % Plt Count (140-400) K/mcL MPV (9.4-12.4) fL Immature Gran % (0-4) % Seg Neutrophils % % Lymphocytes % % Monocytes % % Eosinophils % % Basophils % % Neutrophils # (1.6-8.9) K/mcL Lymphocytes # (0.6-4.6) K/mcL Monocytes # (0.0-1.3) K/mcL Eosinophils # (0.0-0.6) K/mcL Basophils # (0.0-0.2) K/mcL PT (9.4-12.1) Seconds INR APTT (26.0-36.0) Seconds Sodium (136-145) mEq/L Potassium (3.5-4.5) mEq/L Chloride (98-109) mEq/L Carbon Dioxide (19-29) mEq/L BUN (8-26) mg/dL Creatinine (0.72-1.25) mg/dL Est GFR ( Amer) (> 60) Est GFR (Non-Af Amer) (> 60) BUN/Creatinine Ratio (6-26) Glucose (70-99) mg/dL Calculated Osmolality (280-300) Calcium (8.6-10.8) mg/dL Ur Specimen Adequacy See below A Urine Color Red A (Yellow) Urine Clarity Cloudy A (Clear) Urine pH 6.5 (5.0-8.0) pH Units Ur Specific [place] 1.026 H (1.010-1.025) Urine Protein >=1000 H (Neg-Trace) mg/dL Urine Glucose (UA) 100 H (Normal) mg/dL Urine Ketones Trace H (Negative) mg/dL Urine Blood Large H (Negative) Urine Nitrite Positive A (Negative) Urine Bilirubin Small H (Negative) Urine Urobilinogen Normal (Normal) mg/dL Ur Leukocyte Esterase Small H (Negative) Urine Microscopic RBC TNP Urine Microscopic WBC TNP Ur Culture Indicated? YES A (NO) Stool Occult Blood Negative (Negative)
[2016-12-30] MEDS ORDERED: *HR* Morphine 2 MG/ML SYRINGE IVP ONE (07:40)
[2016-12-30] MEDS ORDERED: Ondansetron 4 MG/2 ML VIAL IVP ONE (07:40)
[2016-12-30 07:44] LABS: Basophils # 0.1 K/mcL (0.0-0.2); Basophils % 0.5 %; Eosinophils # 0.4 K/mcL (0.0-0.6); Eosinophils % 4.5 %; Hematocrit 34.3 % (37.5-50.1); Hemoglobin 10.5 g/dL (12.9-16.9); Immature Granulocytes % 1.1 % (0-4); Lymphocytes # 1.2 K/mcL (0.6-4.6); Lymphocytes % 12.5 %; Mean Corpuscular HGB Conc 30.6 g/dL (31.6-35.5); Mean Corpuscular Hemoglobin 26.2 pg (28.0-33.3); Mean Corpuscular Volume 85.5 fL (83.0-100.0); Mean Platelet Volume 9.7 fL (9.4-12.4); Monocytes % 9.8 %; Platelet Count 243 K/mcL (140-400); Red Blood Count 4.01 M/mcL (4.19-5.50); Red Cell Distribution Width 16.1 % (11.5-14.5); Segmented Neutrophils % 71.6 %
[2016-12-30 07:50] LABS: INR 1.1; Prothrombin Time 12.4 Seconds (9.4-12.1)
[2016-12-30 07:53] LABS: Activated Partial Thrombo Time 35.9 Seconds (26.0-36.0)
[2016-12-30 07:56] LABS: Calcium 9.4 mg/dL (8.6-10.8); Potassium 4.7 mEq/L (3.5-4.5)
--- NOTE | 2016-12-30 08:58 | Emergency Department Note ---
START Narrative - START START: I examined this patient and my medical decision-making was reviewed with the DECKHAND CLAM DREDGE/PA/Advanced Practice Nurse/Resident Physician. I agree with the documented findings, disposition and treatment plan as described except to the extent set forth below. 71-year-old male presents with concerns of hematuria and abdominal pain. Patient has been passing blood clots through his urethra at the custodial. Patient was recently admitted for GI bleeding with anemia, he developed hematuria while in the hospital and required 2 days of continuous bladder irrigation. He was recently discharged back to the custodial prior to his symptoms starting again. Today the patient has suprapubic abdominal pain. A Ramos was placed with return of grossly bloody urine. Urologist contacted by the PA. Patient will be admitted for likely continuous bladder irrigation.
[2016-12-30] MEDS ORDERED: *HR* HYDROmorphone (PF) 1 MG/ML SYRINGE IVP ONE (09:08)
[2016-12-30 09:20] LABS: Clarity,Urine Cloudy (Clear); Color,Urine Red (Yellow)
[2016-12-30 09:21] LABS: Bilirubin,Urine Small (Negative); Glucose,Urine (UA) 100 mg/dL (Normal); Ketones,Urine Trace mg/dL (Negative)
[2016-12-30 09:22] LABS: Blood,Urine Large (Negative); Leukocyte Esterase,Urine Small (Negative); Nitrite,Urine Positive (Negative); PH,Urine 6.5 pH Units (5.0-8.0); Protein,Urine >=1000 mg/dL (Neg-Trace); Specific Gravity,Urine 1.026 (1.010-1.025); Urobilinogen,Urine Normal (Normal)
[2016-12-30] MEDS ORDERED: Ipratropium/Albuterol Neb 3 ML IH PRN (09:47)
--- NOTE | 2016-12-30 09:55 | Internal Med History&Physical ---
Date of Encounter: 12/30/16 Time of Encounter: 09:53 Assessment and Plan (1) Paroxysmal a-fib Current visit: Yes Status: Acute Eloquis has been discontinued last admission. He is on aspirin 81 mg currently. Will continue (2) Prostate cancer Current visit: Yes Status: Acute Urology service have recommended considering palliative care (3) UTI (urinary tract infection) Current visit: No Status: Acute Less urine culture is growing Pseudomonas a week ago sensitive to cefepime which will be started Qualifiers: Urinary tract infection type: site unspecified Hematuria presence: with hematuria Qualified Code(s): N39.0 - Urinary tract infection, site not specified; R31.9 - Hematuria, unspecified (4) Marino hematuria Current visit: Yes Status: Acute Three-way bladder irrigation performed in the emergency room. There was evidence of clot retention. Urology service has been notified and will follow the patient. Patient is able dynamically stable. Follow H&H (5) CAD (coronary artery disease) of artery bypass graft Current visit: Yes Status: Acute He denies any active chest pain. We will get 12 lead EKG and cardiac markers Qualifiers: Qualified Code(s): I25.810 - Atherosclerosis of coronary artery bypass graft( s) without angina pectoris Internal Medicine - H&P: HPI Chief complaint: urethral pain and hematuria History of present illness: Mr. Blas is a 71 year old male with multiple medical problems including metastatic prostate cancer recurrence recent fossilization's with Marino hematuria discontinued of eloquence that he has been teaching for atrial fibrillation because of that, history of coronary or CZ status post cabbage, diastolic CHF, chronic kidney disease stage III, history by pathetic awarding replacement, who presents again to the emergency room today because of urethral pain and hematuria. This has started yesterday evening and he was sent to the emergency room because of severity of pain and hematuria. He has denied any loin pain. He denies any fevers. He denies any G.I. bleeding. He is currently only in the 81 mg of aspirin. He mentions that he has not lost large ammount of blood. Only small amounts of Marino hematuria was coming out. Continuous bladder irrigation will start in the emergency room. Past Med Surg Social Fam HX - Past Medical History Medical history: arthritis, atrial fibrillation, cancer, COPD, coronary artery disease, CVA, diabetes, GERD, hyperlipidemia, hypertension, renal disease, valvular heart disease Psychiatric history: anxiety, depression - Past Surgical History Surgical History: coronary bypass (CABG), heart valve replacement, other (left nephrostomy tube placement) - Social History Smoking Status: Unknown if ever smoked Smokeless Tobacco Status: No Alcohol use: unknown Drug use: unknown - Family History Father Living Status: Hx Family Cardiac Disorders: Yes Internal Medicine - H&P: Meds Acetaminophen [Tylenol] 325 mg PO BID PRN 10/17/15 [History] Allopurinol [Zyloprim 300 MG] 300 mg PO DAILY 10/17/15 [History] Ascorbic Acid [Vitamin C] 1,000 mg PO DAILY 10/17/15 [History] Carboxymethylcellulos/Glycerin [Refresh Optive Eye Drops] 1 drop OP QID [History] Docusate Sodium [Colace] 100 mg PO BID 10/17/15 [History] Insulin Glargine [Lantus] 14 unit SQ HS 10/17/15 [History] Ipratropium/Albuterol Neb [Duoneb] 3 ml IH Q6H PRN 10/17/15 [History] Modafinil [Provigil] 400 mg PO QAM 10/17/15 [History] Multivitamin [Multivitamins] 1 tab PO QAM 10/17/15 [History] Omeprazole [PriLOSEC] 40 mg PO DAILY 10/17/15 [History] Saliva Stimulant [Biotene Moisturizing Rinse] 5 spray PO BID 10/17/15 [History] Capsaicin 0.025% [Trixaicin] 1 appl TP DAILY PRN 05/24/16 [History] Pyridoxine HCl [Vitamin B-6] 100 mg PO DAILY 05/24/16 [History] Gabapentin [Neurontin] 300 mg PO TID 11/17/16 [History] Amlodipine [Norvasc] 5 mg PO DAILY #30 tablet 11/27/16 [Rx] Sertraline [Zoloft] 50 mg PO QAM #30 tablet 11/30/16 [Rx] Albuterol Sulfate [Proair Hfa] 1 puff IH Q6H PRN 12/20/16 [History] Amino Acids/Protein Hydrolys [Pro-Stat Awc Liquid Packet] 30 ml PO QAM 12/20/16 [History] Aspirin Enteric Coated [Aspirin EC] 81 mg PO DAILY 12/20/16 [History] Atorvastatin [Lipitor] 40 mg PO HS 12/20/16 [History] Benzocaine/Menthol [Cepacol Sore Throat Lozenge] 1 lozenge PO Q6H PRN 12/20/16 [ History] Calcium Carbonate [Calcium] 1,000 mg PO BID 12/20/16 [History] Ferrous Gluconate 324 mg PO BID 12/20/16 [History] Furosemide [Lasix] 80 mg PO QAM 12/20/16 [History] Insulin LISPRO [HumaLOG] 2 - 12 units SQ ACHS 12/20/16 [History] Lisinopril 2.5 mg PO BID 12/20/16 [History] Tamsulosin [Flomax] 0.4 mg PO DAILY 12/20/16 [History] U-Lactin 1 appl TP BID 12/20/16 [History] Ascorbic Acid [Vitamin C] 1,000 mg PO DAILY tablet 12/27/16 [Rx] Carvedilol [Coreg] 3.125 mg PO BIDWM tablet 12/27/16 [Rx] HydrALAZINE 10 mg IVP Q6HR PRN #0 vial 12/27/16 [Rx] OxyCODONE Immed Rel [Roxicodone 5 MG] 5 mg PO Q4H PRN #18 tablet 12/27/16 [Rx] Phenazopyridine [Pyridium] 200 mg PO TID tablet 12/27/16 [Rx] Sertraline [Zoloft] 50 mg PO DAILY #30 tablet 12/27/16 [Rx] Allergies IVP dye Allergy (Uncoded 10/17/15 06:47) Vomiting All Systems PM: A 10-system review of systems was performed and is negative for pertinent findings except as documented above in the HPI. Review of systems: 10 point ROS is negative except for each nadeen - Constitutional Vitals: Temp Pulse Resp BP Pulse Ox 97.7 F 83 20 115/80 96 12/30/16 06:32 12/30/16 08:51 12/30/16 08:51 12/30/16 08:51 12/30/16 08:51 Exam: Gen.: patient is alert oriented, restless because of pain cardiovascular: normal S1 S2 chest: clear to auscultation abdomen: soft nontender. No CVA tenderness head no cyanosis. Neuro: no focal deficit Internal Med - H&P Results - Labs CBC & Chem 7: 12/30/16 07:36 12/30/16 07:36 Labs: Short CBC 12/30/16 Range/Units 07:36 WBC 9.7 D (4.3-11.1) K/mcL Hgb 10.5 L (12.9-16.9) g/dL Hct 34.3 L (37.5-50.1) % Plt Count 243 (140-400) K/mcL Neutrophils # 7.0 (1.6-8.9) K/mcL BMP 12/30/16 07:36 Sodium 142 Potassium 4.7 H Chloride 107 Carbon Dioxide 22 BUN 42 H Creatinine 1.88 H Glucose 137 H Calcium 9.4 Urine 12/30/16 Range/Units 08:49 Urine Color Red A (Yellow) Urine Clarity Cloudy A (Clear) Urine pH 6.5 (5.0-8.0) pH Units Ur Specific [place] 1.026 H (1.010-1.025) Urine Protein >=1000 H (Neg-Trace) mg/dL Urine Glucose (UA) 100 H (Normal) mg/dL
[2016-12-30] MEDS: *HR* HYDROmorphone (PF) 1 MG/ML SYRINGE IVP PRN (10:53)
[2016-12-30] MEDS ORDERED: Dicyclomine 20 MG/2 ML AMPUL IM ONE (10:54)
[2016-12-30] MEDS: Ondansetron 4 MG/2 ML VIAL IVP PRN (11:14)
[2016-12-30] MEDS: Cefepime HCl 1,000 MG in D5% in Water (Mini-Bag+) 100 ML IVPB SCH ×2 (11:15→23:48)
--- NOTE | 2016-12-30 12:29 | Urology - Consult Note ---
Date of Encounter: 12/30/16 Time of Encounter: 12:27 - Assessment and Plan (1) Gross hematuria Current Visit: No Status: Acute Assessment and plan: placed hematuria catheter and irrigated large volume of clots. now fairly clear on medium CBI. with advanced prostate cancer, unfortunately no good solution for the recurrent clot retention. may be radiation cystitis or the actual prostate cancer bleeding. COntinue CBI for now. I recommend not removing catheter in future because he continues to develop bleeding soon after removal If not already done, patient needs palliative care consult to address end of life medical condition. Patient has advanced prostate cancer with last PSA > 1000. Urology CN:HPI Consult date: 12/30/16 Reason for consult Urology: Gross Hematuria History of present illness: Patient well known to service. advanced prostate cancer. recurrent hematuria with clot retention. attempted to divert urine with nephrostomy but experienced bleeding from nephrostomy. currently admitted with recurrent clot retention. Past Med Surg Social Fam HX - Past Medical History Medical history: arthritis, atrial fibrillation, cancer, COPD, coronary artery disease, CVA, diabetes, GERD, hyperlipidemia, hypertension, renal disease, valvular heart disease Psychiatric history: anxiety, depression - Past Surgical History Surgical History: coronary bypass (CABG), heart valve replacement, other - Social History Smoking Status: Never smoker Smokeless Tobacco Status: No Alcohol use: none Drug use: unknown - Family History Father History Unknown: Yes Living Status: Hx Family Cardiac Disorders: Yes Medications and Allergies Acetaminophen [Tylenol] 325 mg PO BID PRN 10/17/15 [History] Allopurinol [Zyloprim 300 MG] 300 mg PO DAILY 10/17/15 [History] Ascorbic Acid [Vitamin C] 1,000 mg PO DAILY 10/17/15 [History] Carboxymethylcellulos/Glycerin [Refresh Optive Eye Drops] 1 drop OP QID [History] Docusate Sodium [Colace] 100 mg PO BID 10/17/15 [History] Insulin Glargine [Lantus] 14 unit SQ HS 10/17/15 [History] Ipratropium/Albuterol Neb [Duoneb] 3 ml IH Q6H PRN 10/17/15 [History] Modafinil [Provigil] 400 mg PO QAM 10/17/15 [History] Multivitamin [Multivitamins] 1 tab PO QAM 10/17/15 [History] Omeprazole [PriLOSEC] 40 mg PO DAILY 10/17/15 [History] Saliva Stimulant [Biotene Moisturizing Rinse] 5 spray PO BID 10/17/15 [History] Capsaicin 0.025% [Trixaicin] 1 appl TP DAILY PRN 05/24/16 [History] Pyridoxine HCl [Vitamin B-6] 100 mg PO DAILY 05/24/16 [History] Gabapentin [Neurontin] 300 mg PO TID 11/17/16 [History] Amlodipine [Norvasc] 5 mg PO DAILY #30 tablet 11/27/16 [Rx] Sertraline [Zoloft] 50 mg PO QAM #30 tablet 11/30/16 [Rx] Albuterol Sulfate [Proair Hfa] 1 puff IH Q6H PRN 12/20/16 [History] Amino Acids/Protein Hydrolys [Pro-Stat Awc Liquid Packet] 30 ml PO QAM 12/20/16 [History] Aspirin Enteric Coated [Aspirin EC] 81 mg PO DAILY 12/20/16 [History] Atorvastatin [Lipitor] 40 mg PO HS 12/20/16 [History] Benzocaine/Menthol [Cepacol Sore Throat Lozenge] 1 lozenge PO Q6H PRN 12/20/16 [ History] Calcium Carbonate [Calcium] 1,000 mg PO BID 12/20/16 [History] Ferrous Gluconate 324 mg PO BID 12/20/16 [History] Furosemide [Lasix] 80 mg PO QAM 12/20/16 [History] Insulin LISPRO [HumaLOG] 2 - 12 units SQ ACHS 12/20/16 [History] Lisinopril 2.5 mg PO BID 12/20/16 [History] Tamsulosin [Flomax] 0.4 mg PO DAILY 12/20/16 [History] U-Lactin 1 appl TP BID 12/20/16 [History] Carvedilol [Coreg] 3.125 mg PO BIDWM tablet 12/27/16 [Rx] HydrALAZINE 10 mg IVP Q6HR PRN #0 vial 12/27/16 [Rx] OxyCODONE Immed Rel [Roxicodone 5 MG] 5 mg PO Q4H PRN #18 tablet 12/27/16 [Rx] Phenazopyridine [Pyridium] 200 mg PO TID tablet 12/27/16 [Rx] Cefepime HCl/Dextrose, Iso-Osm [Cefepime 1 gm Injection] 1 gm IV Q12H 12/30/16 [ History] Allergies IVP dye Allergy (Uncoded 10/17/15 06:47) Vomiting Review of Systems ROS unobtainable: due to mental status Exam Initial Vital Signs Temp Pulse Resp BP Pulse Ox 97.7 F 93 18 137/82 100 12/30/16 06:32 12/30/16 06:32 12/30/16 06:32 12/30/16 06:32 12/30/16 06:32 - General physical appearance Present: no distress, chronically ill - Abdomen Abdomen: Present: soft - Additional Findings dripping of blood from meatus. Urology Results - Labs 12/30/16 07:36 12/30/16 07:36 Abnormal lab results RBC 4.01 M/mcL (4.19-5.50) L 12/30/16 07:36 Hgb 10.5 g/dL (12.9-16.9) L 12/30/16 07:36 Hct 34.3 % (37.5-50.1) L 12/30/16 07:36 MCH 26.2 pg (28.0-33.3) L 12/30/16 07:36 MCHC 30.6 g/dL (31.6-35.5) L 12/30/16 07:36 RDW 16.1 % (11.5-14.5) H 12/30/16 07:36 PT 12.4 Seconds (9.4-12.1) H 12/30/16 07:36 Potassium 4.7 mEq/L (3.5-4.5) H 12/30/16 07:36 BUN 42 mg/dL (8-26) H 12/30/16 07:36 Creatinine 1.88 mg/dL (0.72-1.25) H 12/30/16 07:36 Est GFR ( Amer) 43 (> 60) L 12/30/16 07:36 Est GFR (Non-Af Amer) 36 (> 60) L 12/30/16 07:36 Glucose 137 mg/dL (70-99) H 12/30/16 07:36 Calculated Osmolality 307 (280-300) H 12/30/16 07:36 Ur Specimen Adequacy See below A 12/30/16 08:49 Urine Color Red (Yellow) A 12/30/16 08:49 Urine Clarity Cloudy (Clear) A 12/30/16 08:49 Ur Specific [place] 1.026 (1.010-1.025) H 12/30/16 08:49 Urine Protein >=1000 mg/dL (Neg-Trace) H 12/30/16 08:49 Urine Glucose (UA) 100 mg/dL (Normal) H 12/30/16 08:49 Urine Ketones Trace mg/dL (Negative) H 12/30/16 08:49 Urine Blood Large (Negative) H 12/30/16 08:49 Urine Nitrite Positive (Negative) A 12/30/16 08:49 Urine Bilirubin Small (Negative) H 12/30/16 08:49 Ur Leukocyte Esterase Small (Negative) H 12/30/16 08:49 Ur Culture Indicated? YES (NO) A 12/30/16 08:49 All other labs normal. Consult Discharge Plan - Plan [facility]errals: [facility] [Primary Care Provider] -
[2016-12-30] MEDS ORDERED: Calcium Gluconate 1,000 MG in D5% in Water 100 ML IVPB ONE (12:43)
[2016-12-30] MEDS: Insulin LISPRO 300 UNITS/3 ML VIAL SQ SCH ×3 (13:37→19:54)
[2016-12-30 22:41] LABS: Hemoglobin 8.8 g/dL (12.9-16.9)
[2016-12-31] MEDS ORDERED: 0.9 % Sodium Chloride 250 ML ONE (01:16)
[2016-12-31] MEDS: Insulin LISPRO 300 UNITS/3 ML VIAL SQ SCH ×6 (01:34→20:57)
[2016-12-31 06:08] LABS: Basophils % 0.4 %; Eosinophils # 0.3 K/mcL (0.0-0.6); Eosinophils % 3.3 %; Hematocrit 30.6 % (37.5-50.1); Hemoglobin 9.4 g/dL (12.9-16.9); Immature Granulocytes % 0.8 % (0-4); Lymphocytes # 1.1 K/mcL (0.6-4.6); Lymphocytes % 10.4 %; Mean Corpuscular HGB Conc 30.7 g/dL (31.6-35.5); Mean Corpuscular Hemoglobin 26.9 pg (28.0-33.3); Mean Corpuscular Volume 87.4 fL (83.0-100.0); Mean Platelet Volume 10.2 fL (9.4-12.4); Monocytes # 0.9 K/mcL (0.0-1.3); Monocytes % 8.8 %; Neutrophils # 7.9 K/mcL (1.6-8.9); Platelet Count 206 K/mcL (140-400); Red Cell Distribution Width 16.3 % (11.5-14.5); Segmented Neutrophils % 76.3 %
[2016-12-31 06:19] LABS: Calcium 8.8 mg/dL (8.6-10.8); Magnesium 1.3 mg/dL (1.6-2.6); Potassium 5.1 mEq/L (3.5-4.5)
[2016-12-31] MEDS ORDERED: Magnesium Sulfate 1 GM in D5% in Water 100 ML IVPB ONE (06:27)
[2016-12-31] MEDS: Pantoprazole 40 MG VIAL IVP SCH (07:50)
[2016-12-31] MEDS: Aspirin Enteric Coated 81 MG Tablet PO SCH (07:50)
--- NOTE | 2016-12-31 08:44 | Urology Progress Note ---
Date of Encounter: 12/31/16 Time of Encounter: 08:39 - Assessment and Plan (1) Gross hematuria Current Visit: No Status: Acute Assessment and plan: hematuria is slowing and will likely be able to stop CBI soon (tomorrow?). I will leave cath in place at discharge as this is likely radiation cystitis or progressing malignancy. I do not feel surgical intervention is in his best interest or will provide much benefit Patient has numerous questions regarding his prognosis, other treatment options for his prostate cancer, life expectancy with current metastatic prostate cancer , ability to be discharged home rather than [place]. I discussed that his prostate cancer is terminal and not curable but I am unable to provide patient additional information. Again consider palliative care consult and/or Oncology recommendations regarding further treatment options. Progress Note Subjective: no new complaints, feels better, hematuria Narrative: no clot retention overnight. slowing CBI down Objective Initial Vital Signs Temp Pulse Resp BP Pulse Ox 97.7 F 93 18 137/82 100 12/30/16 06:32 12/30/16 06:32 12/30/16 06:32 12/30/16 06:32 12/30/16 06:32 - General physical appearance Present: no distress - Abdomen Present: soft - Additional Exam very light hematuria on medium drip. - Labs 12/31/16 06:01 12/31/16 06:01 Diabetes panel 12/31/16 Range/Units 06:01 Sodium 140 (136-145) mEq/L Potassium 5.1 H (3.5-4.5) mEq/L Chloride 105 (98-109) mEq/L Carbon Dioxide 27 (19-29) mEq/L BUN 42 H (8-26) mg/dL Creatinine 1.83 H (0.72-1.25) mg/dL Glucose 119 H (70-99) mg/dL Calcium 8.8 (8.6-10.8) mg/dL Calcium panel 12/31/16 Range/Units 06:01 Calcium 8.8 (8.6-10.8) mg/dL Pituitary panel 12/31/16 Range/Units 06:01 Sodium 140 (136-145) mEq/L Potassium 5.1 H (3.5-4.5) mEq/L Chloride 105 (98-109) mEq/L Carbon Dioxide 27 (19-29) mEq/L BUN 42 H (8-26) mg/dL Creatinine 1.83 H (0.72-1.25) mg/dL Glucose 119 H (70-99) mg/dL Calcium 8.8 (8.6-10.8) mg/dL Adrenal panel 12/31/16 Range/Units 06:01 Sodium 140 (136-145) mEq/L Potassium 5.1 H (3.5-4.5) mEq/L Chloride 105 (98-109) mEq/L Carbon Dioxide 27 (19-29) mEq/L BUN 42 H (8-26) mg/dL Creatinine 1.83 H (0.72-1.25) mg/dL Glucose 119 H (70-99) mg/dL Calcium 8.8 (8.6-10.8) mg/dL - VTE Documentation of Mechanical Device: Intermittent pneumatic compression device Consult Discharge Plan - Plan [facility]errals: [facility] [Primary Care Provider] -
[2016-12-31] MEDS: Cefepime HCl 1,000 MG in D5% in Water (Mini-Bag+) 100 ML IVPB SCH ×2 (10:28→21:27)
--- NOTE | 2016-12-31 12:56 | Internal Med Progress Note ---
Date of Encounter: 12/31/16 Time of Encounter: 12:54 - Assessment and plan (1) Gross hematuria Current Visit: No Status: Acute Assessment and plan: resolving, urology on board. this is possible 2/2 s likely radiation cystitis or progressing malignancy as per radiology. will follow urology recimmnedtaion, likely will go with the catheter. (2) COPD (chronic obstructive pulmonary disease) Current Visit: No Status: Acute Qualifiers: Qualified Code(s): J44.9 - Chronic obstructive pulmonary disease, unspecified (3) Prostate cancer metastatic to intrapelvic lymph node Current Visit: No Status: Acute Assessment and plan: PSA noted to increase from 324 to >1000 recently. He is not able to f/u [facility]ology due to recurrent hospital stay. consider abiraterone or enzalutamide as an outpatient to switch therapy as per last oncology note in . will f/u with oncology about his further treatment options.will also consult palliative (4) DMII (diabetes mellitus, type 2) Current Visit: No Status: Acute Qualifiers: Diabetes mellitus complication status: without complication Diabetes mellitus exterminator helper termite insulin use: with exterminator helper termite use Qualified Code(s): E11.9 - Type 2 diabetes mellitus without complications; Z79.4 - intermediate project manager (current) use of insulin (5) History of atrial fibrillation Current Visit: No Status: Acute Assessment and plan: not in RVR. - Time Spent With Patient 25 - 35 minutes - Subjective Interval history: Patient seen at the bedside, admitted for hematuria. History of prostate cancer. Seen by urology, status post irrigation,hematuria looks better today. h/h is stable. - Constitutional Vitals: Temp Pulse Resp BP Pulse Ox 98.4 F 73 20 108/76 100 12/31/16 11:19 12/31/16 11:19 12/31/16 11:19 12/31/16 11:19 12/31/16 11:19 General appearance: Present: A&O X 3, no acute distress Exam: Gen.: patient is alert oriented. cardiovascular: normal S1 S2 chest: clear to auscultation abdomen: soft nontender. No CVA tenderness head no cyanosis. Neuro: no focal deficit Internal Medicine: Result - Labs CBC & Chem 7: 12/31/16 06:01 12/31/16 06:01 Labs: Short CBC 12/30/16 12/31/16 Range/Units 22:29 06:01 WBC 10.4 (4.3-11.1) K/mcL Hgb 8.8 L D 9.4 L (12.9-16.9) g/dL Hct 29.0 L 30.6 L (37.5-50.1) % Plt Count 206 (140-400) K/mcL Neutrophils # 7.9 (1.6-8.9) K/mcL BMP 12/31/16 06:01 Sodium 140 Potassium 5.1 H Chloride 105 Carbon Dioxide 27 BUN 42 H Creatinine 1.83 H Glucose 119 H Calcium 8.8 - ABG Interpretation ABG results: PT/INR, D-dimer PT 12.4 Seconds (9.4-12.1) H 12/30/16 07:36 - Impressions Impressions Chest X-Ray 12/30/16 11:43 IMPRESSION: 1. Chronic asymmetric elevation of the right diaphragm. 2. Bibasilar subsegmental dependent atelectasis. 3. No superimposed acute process. D/ / 12/30/2016 12:28:29 Pramod Awan MD / jeffrey Interpreting Provider: Pramod Awan MD - VTE Documentation of Mechanical Device: Intermittent pneumatic compression device Consult Discharge Plan - Plan [facility]errals: [facility] [Primary Care Provider] -
[2016-12-31] MEDS: *HR* HYDROmorphone (PF) 1 MG/ML SYRINGE IVP PRN ×3 (13:58→22:40)
--- NOTE | 2016-12-31 18:02 | Electrocardiograph Report ---
[address] [place] [address] Test Date: 2016-12-30 Pat Name: Travis Blas Department: 112 Room: [facility] Gender: M Youth Development Professional: [id number] : 1945 Requested By: Gonsalo Rivas Order Number: [id number] Reading MD: Karen Arteaga Measurements Intervals [place] Rate: 99 P: CT: 0 QRS: -19 QRSD: 96 T: 97 QT: 376 QTc: 432 Interpretive Statements UNCLEAR UNDERLYING RHYTHM Electronically Signed On 12-31-2016 18:00:39 EDT by Karen Arteaga
[2017-01-01] MEDS: Insulin LISPRO 300 UNITS/3 ML VIAL SQ SCH ×6 (00:02→20:18)
[2017-01-01] MEDS: *HR* HYDROmorphone (PF) 1 MG/ML SYRINGE IVP PRN ×3 (03:32→13:16)
--- NOTE | 2017-01-01 07:19 | Urology Progress Note ---
Date of Encounter: 01/01/17 Time of Encounter: 07:18 - Assessment and Plan (1) Gross hematuria Current Visit: No Status: Acute Assessment and plan: I again irrigated large volume of clot - likely old and not new clot formation. will recheck urine later in the day. hopefully urine will start to clear to provide option for discharge Progress Note Narrative: increase in bladder spasms and clots overnight. Objective Initial Vital Signs Temp Pulse Resp BP Pulse Ox 97.7 F 93 18 137/82 100 12/30/16 06:32 12/30/16 06:32 12/30/16 06:32 12/30/16 06:32 12/30/16 06:32 - General physical appearance Present: no distress - Additional Exam increase in hematuria. irrigated ~300 cc of old clot from his bladder. - Labs 12/31/16 06:01 12/31/16 06:01 - VTE Documentation of Mechanical Device: Intermittent pneumatic compression device Consult Discharge Plan - Plan Referrals: [facility] [Primary Care Provider] -
[2017-01-01] MEDS: Aspirin Enteric Coated 81 MG Tablet PO SCH (07:46)
[2017-01-01] MEDS: Pantoprazole 40 MG VIAL IVP SCH (07:46)
[2017-01-01 08:17] LABS: Basophils % 0.3 %; Eosinophils # 0.4 K/mcL (0.0-0.6); Eosinophils % 4.5 %; Hematocrit 28.7 % (37.5-50.1); Hemoglobin 8.8 g/dL (12.9-16.9); Immature Granulocytes % 0.8 % (0-4); Lymphocytes % 10.8 %; Mean Corpuscular HGB Conc 30.7 g/dL (31.6-35.5); Mean Corpuscular Hemoglobin 26.7 pg (28.0-33.3); Mean Corpuscular Volume 87.2 fL (83.0-100.0); Mean Platelet Volume 10.4 fL (9.4-12.4); Monocytes # 0.9 K/mcL (0.0-1.3); Monocytes % 8.9 %; Neutrophils # 7.1 K/mcL (1.6-8.9); Platelet Count 191 K/mcL (140-400); Red Blood Count 3.29 M/mcL (4.19-5.50); Red Cell Distribution Width 15.8 % (11.5-14.5); Segmented Neutrophils % 74.7 %
[2017-01-01 08:41] LABS: Calcium 9.2 mg/dL (8.6-10.8); Potassium 5.2 mEq/L (3.5-4.5)
--- NOTE | 2017-01-01 09:38 | Palliative - Consult Note ---
<AilynMesfin Reinoso - Last Filed: 01/01/17 09:35> Date of Encounter: 01/01/17 Time of Encounter: 09:35 - Assessment and Plan (1) Goals of care, counseling/discussion Current Visit: Yes Status: Acute Assessment and plan: Had a long discussion regarding the goals of care. Patient states that his ultimate goal is to return home and he would like some assistance at home with home health. As regarding his treatment of his prostate cancer he understands that it has progressed and he is unlikely to be cured of his cancer. He is interested in exploring all of his treatment options and what can be done for him including possible chemotherapy or other further cancer treatment as well as exploring hospice in the event that there are no more cancer treatment options available to him or he does not tolerate treatment. We will continue to follow-up and provide the patient with all the necessary information to make an informed decision. CODE STATUS was discussed with patient and he affirmed that he wishes to remain a DNR CCA. (2) Abdominal pain Current Visit: Yes Status: Acute Assessment and plan: Patient states his pain is under control this time however he is using Dilaudid relatively frequently. Given that the patient is tolerating by mouth intake we would recommend transitioning back to oral pain management and discontinuing Dilaudid. Patient's last documented bowel movement was 2 days ago. We recommend a bowel regimen while the patient is on opioid pain medications. Qualifiers: Abdominal location: unspecified location Qualified Code(s): R10.9 - Unspecified abdominal pain (3) Prostate cancer metastatic to intrapelvic lymph node Current Visit: No Status: Acute Assessment and plan: Stage IV. Patient is interested in exploring all the options for treatment including possible chemotherapy or radiation. He would like to speak with an oncologist about possible treatments options, side effects, prognosis before making a final decision on his treatment plan. We will discuss with the primary team and would recommend an oncology consult to answer the patient's questions. Palliative-CN HPI - Data of Consult Patient: known to practice within the last 3 years Requesting Physician: Bekah Lopez [facility] - Consult Narrative Reason for consult: Goals of care History of present illness: Mr. Blas is a 71 year old male with history of stage IV prostate cancer presented with abdominal pain. Patient states that he was at [facility] and they told him that he needed 2 units of blood so they brought him here. The original plan was to receive blood and to go right back to Dr. Karan abdi however he states he was placed in the ICU. Patient feels better since transfer out of the ICU. At this time he denies pain, nausea, vomiting. He states he is eating and drinking well. He denies fever, chills, chest pain, shortness of breath. CC: Bekah Lopez Past Med Surg Social Fam HX - Past Medical History Medical history: arthritis, atrial fibrillation, cancer, COPD, coronary artery disease, CVA, diabetes, GERD, hyperlipidemia, hypertension, renal disease, valvular heart disease Psychiatric history: anxiety, depression - Past Surgical History Surgical History: coronary bypass (CABG), heart valve replacement, other - Social History Smoking Status: Never smoker Smokeless Tobacco Status: No Alcohol use: none Drug use: unknown - Family History Father History Unknown: Yes Living Status: Hx Family Cardiac Disorders: Yes Medications and Allergies Acetaminophen [Tylenol] 325 mg PO BID PRN 10/17/15 [History] Allopurinol [Zyloprim 300 MG] 300 mg PO DAILY 10/17/15 [History] Ascorbic Acid [Vitamin C] 1,000 mg PO DAILY 10/17/15 [History] Carboxymethylcellulos/Glycerin [Refresh Optive Eye Drops] 1 drop OP QID [History] Docusate Sodium [Colace] 100 mg PO BID 10/17/15 [History] Insulin Glargine [Lantus] 14 unit SQ HS 10/17/15 [History] Ipratropium/Albuterol Neb [Duoneb] 3 ml IH Q6H PRN 10/17/15 [History] Modafinil [Provigil] 400 mg PO QAM 10/17/15 [History] Multivitamin [Multivitamins] 1 tab PO QAM 10/17/15 [History] Omeprazole [PriLOSEC] 40 mg PO DAILY 10/17/15 [History] Saliva Stimulant [Biotene Moisturizing Rinse] 5 spray PO BID 10/17/15 [History] Capsaicin 0.025% [Trixaicin] 1 appl TP DAILY PRN 05/24/16 [History] Pyridoxine HCl [Vitamin B-6] 100 mg PO DAILY 05/24/16 [History] Gabapentin [Neurontin] 300 mg PO TID 11/17/16 [History] Amlodipine [Norvasc] 5 mg PO DAILY #30 tablet 11/27/16 [Rx] Sertraline [Zoloft] 50 mg PO QAM #30 tablet 11/30/16 [Rx] Albuterol Sulfate [Proair Hfa] 1 puff IH Q6H PRN 12/20/16 [History] Amino Acids/Protein Hydrolys [Pro-Stat Awc Liquid Packet] 30 ml PO QAM 12/20/16 [History] Aspirin Enteric Coated [Aspirin EC] 81 mg PO DAILY 12/20/16 [History] Atorvastatin [Lipitor] 40 mg PO HS 12/20/16 [History] Benzocaine/Menthol [Cepacol Sore Throat Lozenge] 1 lozenge PO Q6H PRN 12/20/16 [ History] Calcium Carbonate [Calcium] 1,000 mg PO BID 12/20/16 [History] Ferrous Gluconate 324 mg PO BID 12/20/16 [History] Furosemide [Lasix] 80 mg PO QAM 12/20/16 [History] Insulin LISPRO [HumaLOG] 2 - 12 units SQ ACHS 12/20/16 [History] Lisinopril 2.5 mg PO BID 12/20/16 [History] Tamsulosin [Flomax] 0.4 mg PO DAILY 12/20/16 [History] U-Lactin 1 appl TP BID 12/20/16 [History] Carvedilol [Coreg] 3.125 mg PO BIDWM tablet 12/27/16 [Rx] HydrALAZINE 10 mg IVP Q6HR PRN #0 vial 12/27/16 [Rx] OxyCODONE Immed Rel [Roxicodone 5 MG] 5 mg PO Q4H PRN #18 tablet 12/27/16 [Rx] Phenazopyridine [Pyridium] 200 mg PO TID tablet 12/27/16 [Rx] Cefepime HCl/Dextrose, Iso-Osm [Cefepime 1 gm Injection] 1 gm IV Q12H 12/30/16 [ History] Allergies IVP dye Allergy (Uncoded 10/17/15 06:47) Vomiting All systems: reviewed and no additional remarkable complaints except as stated Palliative Care-Exam - Constitutional Vitals: Temp Pulse Resp BP Pulse Ox 98.4 F 83 18 112/70 93 01/01/17 08:09 01/01/17 08:09 01/01/17 08:09 01/01/17 08:09 01/01/17 08:09 General appearance: Present: no acute distress, obese - Head Head Exam: Present: atraumatic, normal inspection, normocephalic - Eye Eye exam: Present: EOMI, PERRL Additional comments: Right eye is absent - ENT ENT exam: Present: mucous membranes moist - Respiratory Respiratory exam: Present: CTAB. Absent: rales, rhonchi, wheezes - Cardiovascular Cardiovascular exam: Present: RRR. Absent: gallop, rubs, systolic murmur - GI/Abdominal Exam GI/Abdominal exam: Present: normal bowel sounds, soft. Absent: tenderness - Catheter Type: 3-way Urethral - Extremities Exam Extremities exam: Absent: pedal edema - Neurological Exam Neurological exam: Present: alert, oriented X3, no focal deficits Internal Medicine - CN: Reslt - Labs CBC & Chem 7: 01/01/17 08:04 01/01/17 08:04 Labs: Short CBC 01/01/17 Range/Units 08:04 WBC 9.5 (4.3-11.1) K/mcL Hgb 8.8 L (12.9-16.9) g/dL Hct 28.7 L (37.5-50.1) % Plt Count 191 (140-400) K/mcL Neutrophils # 7.1 (1.6-8.9) K/mcL BMP 01/01/17 08:04 Sodium 138 Potassium 5.2 H Chloride 103 Carbon Dioxide 26 BUN 39 H Creatinine 1.52 H Glucose 125 H Calcium 9.2 - ABG Interpretation ABG results: PT/INR, D-dimer PT 12.4 Seconds (9.4-12.1) H 12/30/16 07:36 Consult Discharge Plan - Plan [facility]errals: [facility] [Primary Care Provider] - Palliative Quality Palliative Quality: Screen for Code Status: Yes, Screen for Goals of Care: Yes, Screen for Pain: Yes, If Pain Regimen Started, Initiate Bowel Regimen: No (Will recommend), Screen for Nausea/Vomitting: Yes Code Status: 12/30/16 10:10 DNR [Resuscitation Status: Active] [RES] Routine Comment: ok with intubation for respiratory purposes only Resuscitation Status: DNR-Comfort Care-Arrest <Arron Manzano - Last Filed: 01/01/17 11:04> Date of Encounter: 01/01/17 Palliative-CN HPI - Data of Consult Requesting Physician: Bekah Lopez Primary Care Provider: [facility] - Consult Narrative History of present illness: Mr. Blas is a 71 year old male CC: Bekah Lopez Palliative Care-Exam - Constitutional Vitals: Temp Pulse Resp BP Pulse Ox 98.4 F 83 18 112/70 93 01/01/17 08:09 01/01/17 08:09 01/01/17 08:09 01/01/17 08:09 01/01/17 08:09 Internal Medicine - CN: Reslt - Labs CBC & Chem 7: 01/01/17 08:04 01/01/17 08:04 Labs: Short CBC 01/01/17 Range/Units 08:04 WBC 9.5 (4.3-11.1) K/mcL Hgb 8.8 L (12.9-16.9) g/dL Hct 28.7 L (37.5-50.1) % Plt Count 191 (140-400) K/mcL Neutrophils # 7.1 (1.6-8.9) K/mcL BMP 01/01/17 08:04 Sodium 138 Potassium 5.2 H Chloride 103 Carbon Dioxide 26 BUN 39 H Creatinine 1.52 H Glucose 125 H Calcium 9.2 - ABG Interpretation ABG results: PT/INR, D-dimer PT 12.4 Seconds (9.4-12.1) H 12/30/16 07:36 - Attending Attestation I examined this patient and my medical decision-making was reviewed with the HEAD OF MARKETING [employer]/PA/Advanced Practice Nurse/Resident Physician. I agree with the documented findings, disposition and treatment plan as described except to the extent set forth below. Palliative Quality Code Status: 12/30/16 10:10 DNR [Resuscitation Status: Active] [RES] Routine Comment: ok with intubation for respiratory purposes only Resuscitation Status: DNR-Comfort Care-Arrest
[2017-01-01] MEDS: Cefepime HCl 1,000 MG in D5% in Water (Mini-Bag+) 100 ML IVPB SCH ×2 (11:08→22:43)
[2017-01-01] MEDS ORDERED: Ipratropium/Albuterol Neb 3 ML IH PRN (11:53)
--- NOTE | 2017-01-01 14:05 | Internal Med Progress Note ---
Date of Encounter: 01/01/17 Time of Encounter: 14:03 - Assessment and plan (1) Gross hematuria Current Visit: No Status: Acute Assessment and plan: has cleared, urology on board. this is possible 2/2 s likely radiation cystitis or progressing malignancy as per urology. will follow urology recimmnedtaion, likely will go with the catheter. (2) COPD (chronic obstructive pulmonary disease) Current Visit: No Status: Acute Assessment and plan: stable Qualifiers: Qualified Code(s): J44.9 - Chronic obstructive pulmonary disease, unspecified (3) Prostate cancer metastatic to intrapelvic lymph node Current Visit: No Status: Acute Assessment and plan: PSA noted to increase from 324 to >1000 recently. He is not able to f/u [facility] oncology due to recurrent hospital stay. consider abiraterone or enzalutamide as an outpatient to switch therapy as per last oncology note in . will f/u with oncology about his further treatment options. palliative recommendations appreciated. (4) DMII (diabetes mellitus, type 2) Current Visit: No Status: Acute Qualifiers: Diabetes mellitus complication status: without complication Diabetes mellitus jail insulin use: with jail use Qualified Code(s): E11.9 - Type 2 diabetes mellitus without complications; Z79.4 - half-way (current) use of insulin (5) History of atrial fibrillation Current Visit: No Status: Acute Assessment and plan: not in RVR. - Time Spent With Patient 25 - 35 minutes - Subjective Interval history: Patient seen at the bedside, admitted for hematuria. History of prostate cancer. Seen by urology, status post irrigation,urine clean today. h/h is stable. oncology and palliative is consulted for dc planning and further treatment options in regards to his prostate cancer. - Constitutional Vitals: Temp Pulse Resp BP Pulse Ox 97.8 F 80 16 121/77 99 01/01/17 11:41 01/01/17 11:41 01/01/17 11:41 01/01/17 11:41 01/01/17 11:41 General appearance: Present: A&O X 3, no acute distress Exam: Gen.: patient is alert oriented. cardiovascular: normal S1 S2 chest: clear to auscultation abdomen: soft nontender. No CVA tenderness head no cyanosis. Neuro: no focal deficit Internal Medicine: Result - Labs CBC & Chem 7: 01/01/17 08:04 01/01/17 08:04 Labs: Short CBC 01/01/17 Range/Units 08:04 WBC 9.5 (4.3-11.1) K/mcL Hgb 8.8 L (12.9-16.9) g/dL Hct 28.7 L (37.5-50.1) % Plt Count 191 (140-400) K/mcL Neutrophils # 7.1 (1.6-8.9) K/mcL BMP 01/01/17 08:04 Sodium 138 Potassium 5.2 H Chloride 103 Carbon Dioxide 26 BUN 39 H Creatinine 1.52 H Glucose 125 H Calcium 9.2 - ABG Interpretation ABG results: PT/INR, D-dimer PT 12.4 Seconds (9.4-12.1) H 12/30/16 07:36 - VTE Documentation of Mechanical Device: Intermittent pneumatic compression device Consult Discharge Plan - Plan [facility]errals: [facility] [Primary Care Provider] -
--- NOTE | 2017-01-01 18:24 | Oncology Inp Progress Note ---
Date of Encounter: 01/02/17 Time of Encounter: 18:24 (1) Prostate cancer Current Visit: Yes Status: Acute Assessment and plan: Metastatic prostate cancer. PSA more than 1000. By history he received prostate radiation 2010 testosterone was not in castrate level and since then he received a low dose of Lupron. We will repeat testosterone level with. 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 Largest right retroperitoneal lymph node was 5.6 x 4.1 cm. Brachytherapy seeds in the prostate seen Stable sclerotic foci thoracic lumbar spine Chest x-ray showed chronically elevated at hemidiaphragm Whole body bone scan 05/23/2016 does not show a major evidence of metastasis Testosterone level on 01/02/2017 suppressed at 19 indicating castrate levels. He is symptomatic from retroperitoneal adenopathy which may be contributing to hematuria. Hematuria has almost resolved as of 01/01/[address] Flanagan radiation oncology. We will try palliative radiation to the retroperitoneal lymph nodes which may control his disease and may help with hematuria. Also may drive PSA down Shortly after that could consider further treatment Abiraterarone with prednisone in addition to continuing Lupron 22.5 mg IM every 3 months Strongly discussed with him and his power of attorney at law Ruben Jennifer Ben about the importance of keeping up appointment as an outpatient Oncology: Subj Interval history: [facility] with [facility] cancer around 2010. At that time he received external beam radiation to the prostate. Since then he progressed to stage IV. He has been getting Lupron injections and started on Casodex November 2015. Apparently PSA jumped from 10 on 2014 to 324 on 05/23/2016 and further increase to 1053 2016 MRI brain without contrast negative 05/23/2016. CT abdomen and May 2016 showed enlarging lymph node near the rectum size about 2 x 3.5 cm. Few other small pelvic lymph nodes Rest of the abdomen unremarkable. CT chest unremarkable whole-body nuclear medicine bone scan and Lobo negative 05/23/2016 Testosterone level 104 on 05/24/2016 and 180 on 11/18/2016 indicating not complete androgen suppression On questioning he could not tell if he is getting Lupron injections or not I am not sure how compliant he is with Casodex either. He got a dose of Lupron 22.5 mg today 11/20/2016. Prior to admission he was in a alf facility for rehabilitation. He was found to have hemoglobin of 6.8. Left Hydronephrosis for which he had percutaneous antegrade nephrostomy tube 10- Khmer by interventional radiology on 11/21/2016 He also had hematuria and received 5 units of packed cells during that admission. The nephrostomy tube was removed and a stent was placed. During this admission he also was found to have hematuria he has been seen by urology. He has had CBI for few days. He has received 4 units of packed cells during this hospital stay. Past medical history CHF, insulin-dependent diabetes mellitus, prior CVA, coronary artery disease, chronic kidney disease, stage III, hypertension, hyperlipidemia, valvular disease with prior valve replacement and atrial fib on eliquis. - Constitutional Vitals: Vital Signs Temp Pulse Resp BP Pulse Ox 01/01/17 15:55 98.8 F 83 18 110/71 93 01/01/17 11:41 97.8 F 80 16 121/77 99 01/01/17 08:09 98.4 F 83 18 112/70 93 01/01/17 03:02 98.9 F 85 18 120/73 97 12/31/16 23:52 98.7 F 84 20 103/67 97 12/31/16 21:26 97 12/31/16 20:33 98.3 F 84 24 128/73 96 Intake and Output 01/01/17 01/01/17 01/01/17 07:59 15:59 23:59 Intake Total 0 / 0 360 / 360 Output Total 1550 / 1550 725 / 725 900 / 900 Balance -1550 / -1550 -365 / -365 -900 / -900 Intake: Oral 0 / 0 360 / 360 Output: Urine 1550 / 1550 725 / 725 900 / 900 Other: Intake, CBI Fluid 3,000 3,000 3,000 Meal Breakfast Percent of Meal Consumed 100% Output, CBI Fluid 3,550 3,150 3,900 Weight 129 kg Blood Glucose* 141 156 138 Patient Weight 01/01/17 23:59 Weight 129 kg Exam: GENERAL: Alert and oriented, well appearing. Mental Status: Affect appropriate for circumstances HEENT: Sclerae anicteric. Lost eyesight on the right eye. Skin: No rashes or petechiae. No evidence of skin malignancy Lymph nodes: No cervical, supraclavicular, axillary, or inguinal adenopathy. Lungs: Clear to auscultation and percussion bilaterally. Cardiovascular: Regular rate and rhythm. No gallops, murmurs, or rubs. Abdomen: Soft, nontender; no organomegaly or masses palpable. Extremities: Trace edema. No calf swelling or tenderness. No joint deformity. Neurologic: Alert, cranial nerves II-XII intact; normal gait; no focal weakness or sensory abnormalities. Oncology: Obj Data - Labs CBC & Chem 7: 01/01/17 08:04 01/01/17 08:04 Labs: Laboratory Results - last 24 hr 12/30/16 12/30/16 12/31/16 19:35 23:27 20:35 WBC RBC Hgb Hct MCV MCH MCHC RDW Plt Count MPV Immature Gran % Seg Neutrophils % Lymphocytes % Monocytes % Eosinophils % Basophils % Neutrophils # Lymphocytes # Monocytes # Eosinophils # Basophils # Sodium Potassium Chloride Carbon Dioxide BUN Creatinine Est GFR ( Amer) Est GFR (Non-Af Amer) BUN/Creatinine Ratio Glucose POC Glucose 243 H 119 H 122 H Calculated Osmolality Calcium 01/01/17 01/01/17 01/01/17 05:05 07:01 08:04 WBC 9.5 RBC 3.29 L Hgb 8.8 L Hct 28.7 L MCV 87.2 MCH 26.7 L MCHC 30.7 L RDW 15.8 H Plt Count 191 MPV 10.4 Immature Gran % 0.8 Seg Neutrophils % 74.7 Lymphocytes % 10.8 Monocytes % 8.9 Eosinophils % 4.5 Basophils % 0.3 Neutrophils # 7.1 Lymphocytes # 1.0 Monocytes # 0.9 Eosinophils # 0.4 Basophils # 0.0 Sodium Potassium Chloride Carbon Dioxide BUN Creatinine Est GFR ( Amer) Est GFR (Non-Af Amer) BUN/Creatinine Ratio Glucose POC Glucose 141 H 128 H Calculated Osmolality Calcium 01/01/17 01/01/17 01/01/17 08:04 11:35 17:03 WBC RBC Hgb Hct MCV MCH MCHC RDW Plt Count MPV Immature Gran % Seg Neutrophils % Lymphocytes % Monocytes % Eosinophils % Basophils % Neutrophils # Lymphocytes # Monocytes # Eosinophils # Basophils # Sodium 138 Potassium 5.2 H Chloride 103 Carbon Dioxide 26 BUN 39 H Creatinine 1.52 H Est GFR ( Amer) 55 L Est GFR (Non-Af Amer) 46 L BUN/Creatinine Ratio 26 Glucose 125 H POC Glucose 156 H 138 H Calculated Osmolality 297 Calcium 9.2 - ABG Interpretation ABG results: PT/INR, D-dimer PT 12.4 Seconds (9.4-12.1) H 12/30/16 07:36 Consult Discharge Plan - Plan [facility]errals: [facility] [Primary Care Provider] -
[2017-01-01] MEDS ORDERED: *HR* LORazepam 0.5 MG TABLET PO PRN (20:10)
[2017-01-01] MEDS ORDERED: *HR* LORazepam 2 MG/ML VIAL IVP STA (20:10)
[2017-01-01] MEDS: *HR* Belladonna Alkaloids/Opium 60 MG RECTAL SUPPOSITORY RC PRN (20:20)
[2017-01-01] MEDS: Gabapentin 300 MG CAPSULE PO SCH (20:31)
[2017-01-01] MEDS: Artificial Tears SOLN 15 ML BOTTLE OP SCH (22:32)
[2017-01-01] MEDS: Saliva Stimulant 100ml BOTTLE PO SCH (22:33)
[2017-01-02] MEDS: Insulin LISPRO 300 UNITS/3 ML VIAL SQ SCH ×6 (00:55→21:44)
[2017-01-02] MEDS: *HR* HYDROmorphone (PF) 1 MG/ML SYRINGE IVP PRN ×2 (00:55→09:41)
--- NOTE | 2017-01-02 06:49 | Urology Progress Note ---
Date of Encounter: 01/02/17 Time of Encounter: 06:47 - Assessment and Plan (1) Gross hematuria Current Visit: No Status: Acute Assessment and plan: resolving hematuria. will clamp CBI and follow. no plan to remove cath. Progress Note Narrative: pt asleep. urine much clearer this AM. Objective Initial Vital Signs Temp Pulse Resp BP Pulse Ox 97.7 F 93 18 137/82 100 12/30/16 06:32 12/30/16 06:32 12/30/16 06:32 12/30/16 06:32 12/30/16 06:32 - General physical appearance Present: no distress - Additional Exam urine clear. slow CBI drip. - Labs 01/01/17 08:04 01/01/17 08:04 Diabetes panel 01/01/17 Range/Units 08:04 Sodium 138 (136-145) mEq/L Potassium 5.2 H (3.5-4.5) mEq/L Chloride 103 (98-109) mEq/L Carbon Dioxide 26 (19-29) mEq/L BUN 39 H (8-26) mg/dL Creatinine 1.52 H (0.72-1.25) mg/dL Glucose 125 H (70-99) mg/dL Calcium 9.2 (8.6-10.8) mg/dL Calcium panel 01/01/17 Range/Units 08:04 Calcium 9.2 (8.6-10.8) mg/dL Pituitary panel 01/01/17 Range/Units 08:04 Sodium 138 (136-145) mEq/L Potassium 5.2 H (3.5-4.5) mEq/L Chloride 103 (98-109) mEq/L Carbon Dioxide 26 (19-29) mEq/L BUN 39 H (8-26) mg/dL Creatinine 1.52 H (0.72-1.25) mg/dL Glucose 125 H (70-99) mg/dL Calcium 9.2 (8.6-10.8) mg/dL Adrenal panel 01/01/17 Range/Units 08:04 Sodium 138 (136-145) mEq/L Potassium 5.2 H (3.5-4.5) mEq/L Chloride 103 (98-109) mEq/L Carbon Dioxide 26 (19-29) mEq/L BUN 39 H (8-26) mg/dL Creatinine 1.52 H (0.72-1.25) mg/dL Glucose 125 H (70-99) mg/dL Calcium 9.2 (8.6-10.8) mg/dL - VTE Documentation of Mechanical Device: Intermittent pneumatic compression device Consult Discharge Plan - Plan Referrals: [facility] [Primary Care Provider] -
[2017-01-02] MEDS: Cefepime HCl 1,000 MG in D5% in Water (Mini-Bag+) 100 ML IVPB SCH (09:19)
[2017-01-02] MEDS: Thiamine (B-1) 100 MG TABLET PO SCH (09:21)
[2017-01-02] MEDS: Gabapentin 300 MG CAPSULE PO SCH ×3 (09:23→21:44)
[2017-01-02] MEDS: Ascorbic Acid 500 MG TABLET PO SCH (09:23)
[2017-01-02] MEDS: Aspirin Enteric Coated 81 MG Tablet PO SCH (09:24)
--- NOTE | 2017-01-02 09:47 | Palliative Progress Note ---
<Mesfin Robertson - Last Filed: 01/02/17 09:45> Date of Encounter: 01/02/17 Time of Encounter: 09:10 - Assessment and plan (1) Goals of care, counseling/discussion Current Visit: Yes Status: Acute Assessment and plan: Discuss goals of care with the patient. Patient was seen by oncology and they offered antineoplastic therapy as well as radiation. The patient is interested in pursuing these treatment options. This is certainly reasonable and I informed the patient that if he wishes to discontinue these treatments or these treatments are not effective for him there are other treatment strategies that we can pursue. Patient remains a DNR CCA. (2) Abdominal pain Current Visit: Yes Status: Acute Assessment and plan: none this time. Continue to monitor. Qualifiers: Abdominal location: unspecified location Qualified Code(s): R10.9 - Unspecified abdominal pain (3) Prostate cancer metastatic to intrapelvic lymph node Current Visit: No Status: Acute Assessment and plan: Patient is a candidate for possible radiation therapy along with antineoplastic therapy per oncology. Patient wishes to pursue these. Further management per primary team and oncology. - Time Spent With Patient Total time spent is greater than 50% in coordination of care (as documented) at patient's floor/unit and/or counseling patient: - Subjective Interval history: Patient seen and examined at bedside. Patient has no complaints today. He denies pain, fever, chills, nausea, vomiting. - Constitutional Vitals: Abnormal lab results RBC 3.29 M/mcL (4.19-5.50) L 01/01/17 08:04 Hgb 8.8 g/dL (12.9-16.9) L 01/01/17 08:04 Hct 28.7 % (37.5-50.1) L 01/01/17 08:04 MCH 26.7 pg (28.0-33.3) L 01/01/17 08:04 MCHC 30.7 g/dL (31.6-35.5) L 01/01/17 08:04 RDW 15.8 % (11.5-14.5) H 01/01/17 08:04 PT 12.4 Seconds (9.4-12.1) H 12/30/16 07:36 Potassium 5.2 mEq/L (3.5-4.5) H 01/01/17 08:04 BUN 39 mg/dL (8-26) H 01/01/17 08:04 Creatinine 1.52 mg/dL (0.72-1.25) H 01/01/17 08:04 Est GFR ( Amer) 55 (> 60) L 01/01/17 08:04 Est GFR (Non-Af Amer) 46 (> 60) L 01/01/17 08:04 Glucose 125 mg/dL (70-99) H 01/01/17 08:04 POC Glucose 180 (58-89) H 01/01/17 23:35 Magnesium 1.3 mg/dL (1.6-2.6) L 12/31/16 06:01 Troponin I 0.07 ng/mL (0-0.03) H* 12/30/16 07:36 Total Testosterone 19 ng/dL (221-716) L 01/01/17 19:38 Ur Specimen Adequacy See below A 12/30/16 08:49 Urine Color Red (Yellow) A 12/30/16 08:49 Urine Clarity Cloudy (Clear) A 12/30/16 08:49 Ur Specific [place] 1.026 (1.010-1.025) H 12/30/16 08:49 Urine Protein >=1000 mg/dL (Neg-Trace) H 12/30/16 08:49 Urine Glucose (UA) 100 mg/dL (Normal) H 12/30/16 08:49 Urine Ketones Trace mg/dL (Negative) H 12/30/16 08:49 Urine Blood Large (Negative) H 12/30/16 08:49 Urine Nitrite Positive (Negative) A 12/30/16 08:49 Urine Bilirubin Small (Negative) H 12/30/16 08:49 Ur Leukocyte Esterase Small (Negative) H 12/30/16 08:49 Ur Culture Indicated? YES (NO) A 12/30/16 08:49 - ENT ENT exam: Present: mucous membranes moist - Respiratory Respiratory exam: Present: CTAB. Absent: rales, rhonchi, wheezes - Cardiovascular Cardiovascular exam: Present: RRR. Absent: gallop, rubs, systolic murmur - GI/Abdominal GI/Abdominal exam: Present: normal bowel sounds, soft. Absent: distended, tenderness Additional comments: Ramos catheter in place. - Extremities Exam Extremities exam: Absent: pedal edema - Neurological Exam Neurological exam: Present: alert, oriented X3, no focal deficits Palliative Quality Palliative Quality: Screen for Code Status: Yes, Screen for Goals of Care: Yes, Screen for Pain: Yes, If Pain Regimen Started, Initiate Bowel Regimen: No (Will recommend), Screen for Nausea/Vomitting: Yes Code Status: 12/30/16 10:10 DNR [Resuscitation Status: Active] [RES] Routine Comment: ok with intubation for respiratory purposes only Resuscitation Status: DNR-Comfort Care-Arrest - Labs CBC & Chem 7: 01/01/17 08:04 01/01/17 08:04 Labs: Laboratory Results - last 24 hr 12/30/16 12/30/16 12/31/16 19:35 23:27 23:55 POC Glucose 243 H 119 H 124 H Total Testosterone 01/01/17 01/01/17 01/01/17 11:35 17:03 19:38 POC Glucose 156 H 138 H Total Testosterone 19 L 01/01/17 01/01/17 20:15 23:35 POC Glucose 139 H 180 H Total Testosterone - ABG Interpretation ABG results: PT/INR, D-dimer PT 12.4 Seconds (9.4-12.1) H 12/30/16 07:36 Consult Discharge Plan - Plan [facility]Primary Care Provider[facility] - <Arron Manzano - Last Filed: 01/02/17 10:12> Date of Encounter: 01/02/17 - Time Spent With Patient Total time spent is greater than 50% in coordination of care (as documented) at patient's floor/unit and/or counseling patient: - Constitutional Vitals: Abnormal lab results RBC 3.29 M/mcL (4.19-5.50) L 01/01/17 08:04 Hgb 8.8 g/dL (12.9-16.9) L 01/01/17 08:04 Hct 28.7 % (37.5-50.1) L 01/01/17 08:04 MCH 26.7 pg (28.0-33.3) L 01/01/17 08:04 MCHC 30.7 g/dL (31.6-35.5) L 01/01/17 08:04 RDW 15.8 % (11.5-14.5) H 01/01/17 08:04 PT 12.4 Seconds (9.4-12.1) H 12/30/16 07:36 Potassium 5.2 mEq/L (3.5-4.5) H 01/01/17 08:04 BUN 39 mg/dL (8-26) H 01/01/17 08:04 Creatinine 1.52 mg/dL (0.72-1.25) H 01/01/17 08:04 Est GFR ( Amer) 55 (> 60) L 01/01/17 08:04 Est GFR (Non-Af Amer) 46 (> 60) L 01/01/17 08:04 Glucose 125 mg/dL (70-99) H 01/01/17 08:04 POC Glucose 180 (58-89) H 01/01/17 23:35 Magnesium 1.3 mg/dL (1.6-2.6) L 12/31/16 06:01 Troponin I 0.07 ng/mL (0-0.03) H* 12/30/16 07:36 Total Testosterone 19 ng/dL (221-716) L 01/01/17 19:38 Ur Specimen Adequacy See below A 12/30/16 08:49 Urine Color Red (Yellow) A 12/30/16 08:49 Urine Clarity Cloudy (Clear) A 12/30/16 08:49 Ur Specific [place] 1.026 (1.010-1.025) H 12/30/16 08:49 Urine Protein >=1000 mg/dL (Neg-Trace) H 12/30/16 08:49 Urine Glucose (UA) 100 mg/dL (Normal) H 12/30/16 08:49 Urine Ketones Trace mg/dL (Negative) H 12/30/16 08:49 Urine Blood Large (Negative) H 12/30/16 08:49 Urine Nitrite Positive (Negative) A 12/30/16 08:49 Urine Bilirubin Small (Negative) H 12/30/16 08:49 Ur Leukocyte Esterase Small (Negative) H 12/30/16 08:49 Ur Culture Indicated? YES (NO) A 12/30/16 08:49 - Attending Attestation I examined this patient and my medical decision-making was reviewed with the [employer]/PA/Advanced Practice Nurse/Resident Physician. I agree with the documented findings, disposition and treatment plan as described except to the extent set forth below. Palliative Quality Code Status: 12/30/16 10:10 DNR [Resuscitation Status: Active] [RES] Routine Comment: ok with intubation for respiratory purposes only Resuscitation Status: DNR-Comfort Care-Arrest - Labs CBC & Chem 7: 01/01/17 08:04 01/01/17 08:04 Labs: Laboratory Results - last 24 hr 12/30/16 12/30/16 12/31/16 19:35 23:27 23:55 POC Glucose 243 H 119 H 124 H Total Testosterone 01/01/17 01/01/17 01/01/17 11:35 17:03 19:38 POC Glucose 156 H 138 H Total Testosterone 19 L 01/01/17 01/01/17 20:15 23:35 POC Glucose 139 H 180 H Total Testosterone - ABG Interpretation ABG results: PT/INR, D-dimer PT 12.4 Seconds (9.4-12.1) H 12/30/16 07:36
[2017-01-02] MEDS: Artificial Tears SOLN 15 ML BOTTLE OP SCH ×4 (09:48→21:45)
[2017-01-02] MEDS: Saliva Stimulant 100ml BOTTLE PO SCH ×2 (11:23→21:45)
[2017-01-02] MEDS: *HR* Belladonna Alkaloids/Opium 60 MG RECTAL SUPPOSITORY RC PRN (13:36)
[2017-01-02] MEDS: *HR* OxyCODONE ER (12 HR) 20 MG TABLET PO SCH ×2 (13:56→21:44)
--- NOTE | 2017-01-02 16:20 | Rad Onc Consult Note ---
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 Blas was seen today in his hospital room regarding his metastatic prostate cancer. He had originally been diagnosed with high-risk prostate cancer in 2009 and went on to receive neoadjuvant androgen deprivation followed by external beam radiotherapy to the prostate only to a dose of 7920 cGy which he completed in May 2011 here at [place] under the care of Dr. Jacobson. His overall external beam treatment course was prolonged due to multiple breaks and missed treatments due to comorbidities and other issues. He was seen last in the radiation oncology Department in July 2011. He was planned to receive 2- 3 years of androgen deprivation. I do know that a PSA done in May 2014 was 0.63. Otherwise, he was lost to follow-up until 2014 when he was seen by Dr. Ledezma with a rising PSA up to 10. He was given Lupron 22.5 mg once at that visit with recommended three-month follow-up. He was again lost to follow-up. He was subsequently admitted and 05/[address] of the abdomen and pelvis revealed retroperitoneal adenopathy. PSA at that time was 320 with a testosterone level of 100. Bone scan was unremarkable. More recently he was transferred from the CT and 11/2016 for concern regarding hydronephrosis. Left nephrostomy tube was placed on 11/21/2016. Following this, he appears have had issues with hematuria. On 11/29/2016 the nephrostomy tube was exchanged with antegrade placement of a ureteric stent by interventional radiology. His hematuria cleared subsequently however he developed worsening hydronephrosis and was transferred to [facility]. He was discharged to a skilled is a facility and then represented to the emergency department with anemia on 2016 where he was noted to have recurrent hematuria. Since that time is undergone bladder irrigation and has required red blood cell transfusion. He has had several CT of the abdomen and pelvis done since November demonstrating pelvic and para-aortic adenopathy. Today, he was asleep upon entering the room. He did briefly wake up to talk to me. He provided very little history and was a poor historian. He denied any pain at present. As documented in the medical record - Past Medical History arthritis, atrial fibrillation, CHF, COPD, coronary artery disease, CVA, diabetes, GERD, hyperlipidemia, hypertension, metastatic prostate cancer, myocardial infarction, osteoporosis, renal disease, valvular heart disease - Past Surgical History Surgical History: coronary bypass (CABG), heart valve replacement - Social History Smoking Status: Never smoker Smokeless Tobacco Status: No Alcohol use: none Drug use: none - Family History Father Cause of : [place] History - Social History Smoking Status: Never smoker Smokeless Tobacco Status: No Alcohol Use: none Drug use: unknown Oncology - Medications Acetaminophen [Tylenol] 325 mg PO BID PRN 10/17/15 [History] Allopurinol [Zyloprim 300 MG] 300 mg PO DAILY 10/17/15 [History] Ascorbic Acid [Vitamin C] 1,000 mg PO DAILY 10/17/15 [History] Carboxymethylcellulos/Glycerin [Refresh Optive Eye Drops] 1 drop OP QID [History] Docusate Sodium [Colace] 100 mg PO BID 10/17/15 [History] Insulin Glargine [Lantus] 14 unit SQ HS 10/17/15 [History] Ipratropium/Albuterol Neb [Duoneb] 3 ml IH Q6H PRN 10/17/15 [History] Modafinil [Provigil] 400 mg PO QAM 10/17/15 [History] Multivitamin [Multivitamins] 1 tab PO QAM 10/17/15 [History] Omeprazole [PriLOSEC] 40 mg PO DAILY 10/17/15 [History] Saliva Stimulant [Biotene Moisturizing Rinse] 5 spray PO BID 10/17/15 [History] Capsaicin 0.025% [Trixaicin] 1 appl TP DAILY PRN 05/24/16 [History] Pyridoxine HCl [Vitamin B-6] 100 mg PO DAILY 05/24/16 [History] Gabapentin [Neurontin] 300 mg PO TID 11/17/16 [History] Amlodipine [Norvasc] 5 mg PO DAILY #30 tablet 11/27/16 [Rx] Sertraline [Zoloft] 50 mg PO QAM #30 tablet 11/30/16 [Rx] Albuterol Sulfate [Proair Hfa] 1 puff IH Q6H PRN 12/20/16 [History] Amino Acids/Protein Hydrolys [Pro-Stat Awc Liquid Packet] 30 ml PO QAM 12/20/16 [History] Aspirin Enteric Coated [Aspirin EC] 81 mg PO DAILY 12/20/16 [History] Atorvastatin [Lipitor] 40 mg PO HS 12/20/16 [History] Benzocaine/Menthol [Cepacol Sore Throat Lozenge] 1 lozenge PO Q6H PRN 12/20/16 [ History] Calcium Carbonate [Calcium] 1,000 mg PO BID 12/20/16 [History] Ferrous Gluconate 324 mg PO BID 12/20/16 [History] Furosemide [Lasix] 80 mg PO QAM 12/20/16 [History] Insulin LISPRO [HumaLOG] 2 - 12 units SQ ACHS 12/20/16 [History] Lisinopril 2.5 mg PO BID 12/20/16 [History] Tamsulosin [Flomax] 0.4 mg PO DAILY 12/20/16 [History] U-Lactin 1 appl TP BID 12/20/16 [History] Carvedilol [Coreg] 3.125 mg PO BIDWM tablet 12/27/16 [Rx] HydrALAZINE 10 mg IVP Q6HR PRN #0 vial 12/27/16 [Rx] OxyCODONE Immed Rel [Roxicodone 5 MG] 5 mg PO Q4H PRN #18 tablet 12/27/16 [Rx] Phenazopyridine [Pyridium] 200 mg PO TID tablet 12/27/16 [Rx] Cefepime HCl/Dextrose, Iso-Osm [Cefepime 1 gm Injection] 1 gm IV Q12H 12/30/16 [ History] Allergies IVP dye Allergy (Uncoded 10/17/15 06:47) Vomiting Review of Systems - Exam Provider Comments:: A 12 point review of systems was performed. Pertinent positives and negatives are listed below and in the history of present illness. All other systems negative. Physical Exam - Vitals Vital Signs: Last Vital Signs Temp 98.6 F 01/02/17 12:20 Pulse 82 01/02/17 12:20 Resp 16 01/02/17 12:20 BP 109/68 01/02/17 12:20 Pulse Ox 95 01/02/17 12:20 Height: 1.75 m Weight: 129 kg Physical Exam: GENERAL: Sleeping, difficult to arouse, Oriented, well appearing Skin: No rashes or petechiae. Warm to touch. Lymph nodes: No cervical or supraclavicular adenopathy. Lungs: Clear to auscultation and percussion bilaterally. Cardiovascular: Regular rhythm and normal rate. No gallops, murmurs, or rubs. Abdomen: Soft, nontender, nondistended, obese; no organomegaly or masses palpable. : Ramos in place. [place] tinged urine. Extremities: No edema. No calf swelling or tenderness. No joint deformity. Oncology- Results - Diagnostic Studies Laboratory: PSA 08/2009: 17.35 05/08/2014: 0.63 11/02/2014: 10 05/23/2016: 324.26 11/18/2016: 1053.38 12/27/2016: >1000 Testosterone 01/01/2017: 19 Imagin12/21/2016 CT abdomen/pelvis reviewed Enlarging middle lobe pulmonary nodule with grossly stable retroperitoneal and pelvic adenopathy Pelvis: Ureteral stent terminates in the urinary bladder. Soft tissue is again seen along the distal left ureter. Pelvic adenopathy is stable. Presacral fat stranding is again noted. 11/26/2016 CT abdomen/pelvis reviewed 1. Status post left percutaneous nephrostomy catheter placement. Intermediate attenuation within the left ureter compatible with hemorrhage. 2. Redemonstration of retroperitoneal and pelvic lymphadenopathy 05/22/2016 CT abdomen/pelvis reviewed - Assessment Assessment: Assessment: 71-year-old -[place] male with multiple medical comorbidities and history of high risk prostate cancer treated with external beam radiotherapy and androgen deprivation in 2010 with subsequent biochemical recurrence now with metastatic disease. Most recent PSA >1000 with low testosterone suspicious for castrate resistance. Recurrent issues with hematuria requiring transfusion and clot evacuation. Plan: Mr. Blas previously received external beam radiotherapy for his high-risk prostate cancer here to [place]. He did not receive brachytherapy. Markers within the prostate are fiducial markers. In reviewing his previous radiation field, treatment was to the prostate only with very little coverage of the seminal vesicles. Additionally bladder doses were quite small suggesting low likelihood of radiation cystitis. In review of his CT imaging over the last 14 months, I'm concerned about local extension from the left seminal vesicle into the distal ureter. At the time of his ureteric stent placement on antegrade nephrostogram there appeared to be a distal ureteric obstruction. I don't believe there has been any clear localization of his site of bleeding at this time point and am suspicious that this may be the site. I do not believe he has had a cystoscopy to date. Palliative radiotherapy could be done for the purpose of palliating his bleeding. Without definite knowledge of the bleeding site, success of this approach will be limited to a best guess. I would favor treating this area at the distal left ureter/left seminal vesicle. This is outside of his previous radiation field. This was discussed with the patient who was interested in pallaitive treatment though the discussion was limited as he was very hard to arouse. I also spoke with his niece Ms. Contreras to discuss plan of care as well. It seems that his goal is to get out of the hospital and remain out of the hospital. The risks of palliative radiotherapy to this area are small with potential benefits very much in line with his reported goals. Palliative therapy would be done in 10 treatments over 2 weeks. He will need a CT simulation at the cancer center. Ms. Contreras has requested this be on Sunday of this week to coordinate with her schedule so that the plan of care and goals of care can also be further addressed at that time. This can be done as either an inpatient or outpatient. My staff will arrange this and the [facility]. Appreciate palliative care's input. Patient does have overall very poor prognosis with high-grade castrate resistant prostate cancer in the setting of comorbidities and poor performance status. Ongoing end-of-life discussion are very appropriate. Even with the addition of enzalutamide or abiraterone, median overall survivals are still around 1.5 years. Radiotherapy would not be intended to increase survival, but to palliate bleeding. I would recommend discontinuing his aspirin. This could be resumed at a later date if his bleeding is under control. Dhaval Flanagan MD This report was generated using [email or web address] dictation. There may be errors that were overlooked during editing.
[2017-01-02] MEDS: *HR* OxyCODONE Immed Rel 5 MG TABLET PO PRN (18:53)
[2017-01-02] MEDS: Sennosides/Docusate Sodium TABLET PO SCH (21:44)
[2017-01-03] MEDS: Insulin LISPRO 300 UNITS/3 ML VIAL SQ SCH ×6 (00:33→21:00)
[2017-01-03 05:59] LABS: Basophils # 0.1 K/mcL (0.0-0.2); Basophils % 0.5 %; Eosinophils # 0.3 K/mcL (0.0-0.6); Eosinophils % 3.5 %; Hematocrit 27.6 % (37.5-50.1); Hemoglobin 8.3 g/dL (12.9-16.9); Immature Granulocytes % 0.6 % (0-4); Lymphocytes # 1.3 K/mcL (0.6-4.6); Lymphocytes % 13.2 %; Mean Corpuscular HGB Conc 30.1 g/dL (31.6-35.5); Mean Corpuscular Hemoglobin 26.6 pg (28.0-33.3); Mean Corpuscular Volume 88.5 fL (83.0-100.0); Mean Platelet Volume 10.8 fL (9.4-12.4); Platelet Count 188 K/mcL (140-400); Red Blood Count 3.12 M/mcL (4.19-5.50); Red Cell Distribution Width 15.6 % (11.5-14.5); Segmented Neutrophils % 72.2 %
[2017-01-03 06:06] LABS: Calcium 9.4 mg/dL (8.6-10.8); Potassium 5.4 mEq/L (3.5-4.5)
[2017-01-03] MEDS: *HR* OxyCODONE ER (12 HR) 20 MG TABLET PO SCH ×2 (08:46→23:16)
--- NOTE | 2017-01-03 09:29 | Palliative Progress Note ---
Date of Encounter: 01/03/17 Time of Encounter: 08:40 - Assessment and plan (1) Abdominal pain Current Visit: Yes Status: Acute Assessment and plan: Pain medications are working for him, we will continue current medications. Qualifiers: Abdominal location: unspecified location Qualified Code(s): R10.9 - Unspecified abdominal pain (2) [place] hematuria Current Visit: Yes Status: Acute Assessment and plan: Urology is following. It is noted for some palliative radiation therapy as well. (3) Acute hypercapnic respiratory failure Current Visit: No Status: Acute (4) Prostate cancer metastatic to intrapelvic lymph node Current Visit: No Status: Chronic Assessment and plan: Nancy radiation therapy is available to the patient. Well as some chemotherapy. The patient continues to state he would like to have chemotherapy. (5) Goals of care, counseling/discussion Current Visit: No Status: Acute Assessment and plan: CODE STATUS DNR CCA. Ultimate plan is to return to [facility] Although the patient would definitely like to get home as soon as possible. At this time it does not appear that he will be able to go home and initially but may be able to get strong enough ultimately to do so. She is receiving services through the [facility], and if and when he decides he wishes to have hospice for which he is eligible. He can to pursue that through the [facility]. - Time Spent With Patient Total time spent is greater than 50% in coordination of care (as documented) at patient's floor/unit and/or counseling patient: - Subjective Interval history: Having some pain this morning, however overall the medications are working well. No nausea no vomiting and no difficulty breathing. He dates his bowels are not moving at this time. - Constitutional Vitals: Abnormal lab results RBC 3.12 M/mcL (4.19-5.50) L 01/03/17 04:10 Hgb 8.3 g/dL (12.9-16.9) L 01/03/17 04:10 Hct 27.6 % (37.5-50.1) L 01/03/17 04:10 MCH 26.6 pg (28.0-33.3) L 01/03/17 04:10 MCHC 30.1 g/dL (31.6-35.5) L 01/03/17 04:10 RDW 15.6 % (11.5-14.5) H 01/03/17 04:10 PT 12.4 Seconds (9.4-12.1) H 12/30/16 07:36 Potassium 5.4 mEq/L (3.5-4.5) H 01/03/17 04:10 BUN 37 mg/dL (8-26) H 01/03/17 04:10 Creatinine 1.56 mg/dL (0.72-1.25) H 01/03/17 04:10 Est GFR ( Amer) 54 (> 60) L 01/03/17 04:10 Est GFR (Non-Af Amer) 44 (> 60) L 01/03/17 04:10 Glucose 111 mg/dL (70-99) H 01/03/17 04:10 POC Glucose 119 (58-89) H 01/03/17 07:28 Magnesium 1.3 mg/dL (1.6-2.6) L 12/31/16 06:01 Troponin I 0.07 ng/mL (0-0.03) H* 12/30/16 07:36 Total Testosterone 19 ng/dL (221-716) L 01/01/17 19:38 Ur Specimen Adequacy See below A 12/30/16 08:49 Urine Color Red (Yellow) A 12/30/16 08:49 Urine Clarity Cloudy (Clear) A 12/30/16 08:49 Ur Specific [place] 1.026 (1.010-1.025) H 12/30/16 08:49 Urine Protein >=1000 mg/dL (Neg-Trace) H 12/30/16 08:49 Urine Glucose (UA) 100 mg/dL (Normal) H 12/30/16 08:49 Urine Ketones Trace mg/dL (Negative) H 12/30/16 08:49 Urine Blood Large (Negative) H 12/30/16 08:49 Urine Nitrite Positive (Negative) A 12/30/16 08:49 Urine Bilirubin Small (Negative) H 12/30/16 08:49 Ur Leukocyte Esterase Small (Negative) H 12/30/16 08:49 Ur Culture Indicated? YES (NO) A 12/30/16 08:49 General appearance: Present: no acute distress - Head Head exam: Present: atraumatic, normal inspection - ENT ENT exam: Present: mucous membranes moist - Respiratory Respiratory exam: Present: CTAB - Cardiovascular Cardiovascular exam: Present: RRR - GI/Abdominal GI/Abdominal exam: Present: normal bowel sounds, soft. Absent: tenderness - Extremities Exam Extremities exam: Present: normal inspection. Absent: pedal edema, tenderness - Neurological Exam Neurological exam: Present: alert - Psychiatric Psychiatric exam: Absent: agitated, anxious - Skin Skin exam: Present: dry, warm Palliative Quality Palliative Quality: Screen for Code Status: Yes, Screen for Goals of Care: Yes, Screen for Pain: Yes, If Pain Regimen Started, Initiate Bowel Regimen: No (Will recommend), Screen for Nausea/Vomitting: Yes Code Status: 12/30/16 10:10 DNR [Resuscitation Status: Active] [RES] Routine Comment: ok with intubation for respiratory purposes only Resuscitation Status: DNR-Comfort Care-Arrest - Labs CBC & Chem 7: 01/03/17 04:10 01/03/17 04:10 Labs: Laboratory Results - last 24 hr 01/02/17 01/02/17 01/02/17 06:51 12:17 15:44 WBC RBC Hgb Hct MCV MCH MCHC RDW Plt Count MPV Immature Gran % Seg Neutrophils % Lymphocytes % Monocytes % Eosinophils % Basophils % Neutrophils # Lymphocytes # Monocytes # Eosinophils # Basophils # Sodium Potassium Chloride Carbon Dioxide BUN Creatinine Est GFR ( Amer) Est GFR (Non-Af Amer) BUN/Creatinine Ratio Glucose POC Glucose 155 H 163 H 164 H Calculated Osmolality Calcium 01/02/17 01/03/17 01/03/17 19:30 00:24 03:43 WBC RBC Hgb Hct MCV MCH MCHC RDW Plt Count MPV Immature Gran % Seg Neutrophils % Lymphocytes % Monocytes % Eosinophils % Basophils % Neutrophils # Lymphocytes # Monocytes # Eosinophils # Basophils # Sodium Potassium Chloride Carbon Dioxide BUN Creatinine Est GFR ( Amer) Est GFR (Non-Af Amer) BUN/Creatinine Ratio Glucose POC Glucose 179 H 111 H 129 H Calculated Osmolality Calcium 01/03/17 01/03/17 01/03/17 04:10 04:10 07:28 WBC 9.7 RBC 3.12 L Hgb 8.3 L Hct 27.6 L MCV 88.5 MCH 26.6 L MCHC 30.1 L RDW 15.6 H Plt Count 188 MPV 10.8 Immature Gran % 0.6 Seg Neutrophils % 72.2 Lymphocytes % 13.2 Monocytes % 10.0 Eosinophils % 3.5 Basophils % 0.5 Neutrophils # 7.0 Lymphocytes # 1.3 Monocytes # 1.0 Eosinophils # 0.3 Basophils # 0.1 Sodium 138 Potassium 5.4 H Chloride 103 Carbon Dioxide 27 BUN 37 H Creatinine 1.56 H Est GFR ( Amer) 54 L Est GFR (Non-Af Amer) 44 L BUN/Creatinine Ratio 24 Glucose 111 H POC Glucose 119 H Calculated Osmolality 295 Calcium 9.4 - ABG Interpretation ABG results: PT/INR, D-dimer PT 12.4 Seconds (9.4-12.1) H 12/30/16 07:36 Consult Discharge Plan - Plan [facility]errals: [facility] [Primary Care Provider] -
[2017-01-03] MEDS: Sennosides/Docusate Sodium TABLET PO SCH ×2 (10:42→23:16)
[2017-01-03] MEDS: Aspirin Enteric Coated 81 MG Tablet PO SCH (10:42)
[2017-01-03] MEDS: Ascorbic Acid 500 MG TABLET PO SCH (10:42)
[2017-01-03] MEDS: Thiamine (B-1) 100 MG TABLET PO SCH (10:43)
[2017-01-03] MEDS: Gabapentin 300 MG CAPSULE PO SCH ×3 (10:43→23:16)
[2017-01-03] MEDS: Saliva Stimulant 100ml BOTTLE PO SCH ×2 (10:43→23:16)
[2017-01-03] MEDS: Artificial Tears SOLN 15 ML BOTTLE OP SCH ×4 (10:48→23:16)
--- NOTE | 2017-01-03 12:02 | Urology Progress Note ---
Date of Encounter: 01/03/17 Time of Encounter: 07:00 - Assessment and Plan (1) Gross hematuria Current Visit: No Status: Acute Assessment and plan: again appears to be resolving. will hold CBI again and follow. may need to consider cystoscopy with fuguration but may not resolve issue if related to radiation, prostate cancer, or upper tract bleeding. talked to Dr Flanagan. 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 Progress Note Narrative: pt asleep. no distress. CBI restarted Objective Initial Vital Signs Temp Pulse Resp BP Pulse Ox 97.7 F 93 18 137/82 100 12/30/16 06:32 12/30/16 06:32 12/30/16 06:32 12/30/16 06:32 12/30/16 06:32 - Additional Exam slow to medium drip. urine clear in tube - Labs 01/03/17 04:10 01/03/17 04:10 Diabetes panel 01/03/17 Range/Units 04:10 Sodium 138 (136-145) mEq/L Potassium 5.4 H (3.5-4.5) mEq/L Chloride 103 (98-109) mEq/L Carbon Dioxide 27 (19-29) mEq/L BUN 37 H (8-26) mg/dL Creatinine 1.56 H (0.72-1.25) mg/dL Glucose 111 H (70-99) mg/dL Calcium 9.4 (8.6-10.8) mg/dL Calcium panel 01/03/17 Range/Units 04:10 Calcium 9.4 (8.6-10.8) mg/dL Pituitary panel 01/03/17 Range/Units 04:10 Sodium 138 (136-145) mEq/L Potassium 5.4 H (3.5-4.5) mEq/L Chloride 103 (98-109) mEq/L Carbon Dioxide 27 (19-29) mEq/L BUN 37 H (8-26) mg/dL Creatinine 1.56 H (0.72-1.25) mg/dL Glucose 111 H (70-99) mg/dL Calcium 9.4 (8.6-10.8) mg/dL Adrenal panel 01/03/17 Range/Units 04:10 Sodium 138 (136-145) mEq/L Potassium 5.4 H (3.5-4.5) mEq/L Chloride 103 (98-109) mEq/L Carbon Dioxide 27 (19-29) mEq/L BUN 37 H (8-26) mg/dL Creatinine 1.56 H (0.72-1.25) mg/dL Glucose 111 H (70-99) mg/dL Calcium 9.4 (8.6-10.8) mg/dL - VTE Documentation of Mechanical Device: Intermittent pneumatic compression device Consult Discharge Plan - Plan [facility]errals: [facility] [Primary Care Provider] -
[2017-01-03] MEDS: *HR* OxyCODONE Immed Rel 5 MG TABLET PO PRN (15:03)
--- NOTE | 2017-01-03 17:05 | Internal Med Progress Note ---
Date of Encounter: 01/02/17 Time of Encounter: 13:45 - Assessment and plan (1) Prostate cancer metastatic to intrapelvic lymph node Current Visit: Yes Status: Chronic Assessment and plan: Patient has been admitted with hematuria secondary to metastatic prostate cancer and is noted to have poor prognosis. Patient has been seen by urology and planned [facility], with indwelling Ramos catheter. Patient has also been seen by palliative care team and oncology and he opted to pursue outpatient chemotherapy and palliative radiation. (2) Gross hematuria Current Visit: Yes Status: Acute Assessment and plan: Related to underlying prostate cancer. Hematuria improved after receiving continuous bladder irrigation, being followed by urology. Plan for possible discharge back to prison today, however patient developed significant hematuria and is currently on continuous bladder irrigation again. Continue to monitor hemoglobin closely. (3) History of atrial fibrillation Current Visit: Yes Status: Chronic Assessment and plan: Patient was recently admitted for possible anemia and GI bleed, at which time and coagulation has been discontinued for atrial fibrillation. Currently noted to be on baby aspirin, will continue. Continue rate control medications. (4) COPD (chronic obstructive pulmonary disease) Current Visit: Yes Status: Chronic Assessment and plan: Currently not in acute exacerbation. Continue when necessary bronchodilators and supplemental oxygen. Qualifiers: COPD type: unspecified COPD Qualified Code(s): J44.9 - Chronic obstructive pulmonary disease, unspecified (5) Acute encephalopathy Current Visit: Yes Status: Acute Assessment and plan: Patient likely has some underlying dementia. Unable to reach family at this time to determine baseline mental status. Currently noted to be lethargic and cannot answer appropriately. (6) UTI (urinary tract infection) Current Visit: Yes Status: Ruled-out Assessment and plan: Patient has been started on IV antibiotics for possible UTI. However, urine culture shows no growth and his antibiotics will be discontinued today. Qualifiers: Urinary tract infection type: site unspecified Hematuria presence: with hematuria Qualified Code(s): N39.0 - Urinary tract infection, site not specified; R31.9 - Hematuria, unspecified (7) DMII (diabetes mellitus, type 2) Current Visit: Yes Status: Chronic Assessment and plan: Continue Accu-Chek blood glucose monitoring with sliding scale insulin. Qualifiers: Diabetes mellitus complication status: with unspecified complications Diabetes mellitus terminal clerk insulin use: with terminal clerk use Qualified Code(s) : E11.8 - Type 2 diabetes mellitus with unspecified complications; Z79.4 - long term care administrator (current) use of insulin (8) Depression Current Visit: Yes Status: Chronic Qualifiers: Depression Type: unspecified Qualified Code(s): F32.9 - Major depressive disorder, single episode, unspecified - Subjective Interval history: Noted to be drowsy but arousable. Unable to provide complete history. Able to state his name, reports some lower abdominal pain. - Constitutional Vitals: Temp Pulse Resp BP Pulse Ox 98.3 F 92 18 130/77 95 01/03/17 16:04 01/03/17 16:04 01/03/17 16:04 01/03/17 16:04 01/03/17 16:04 General appearance: Present: A&O X 1 - Respiratory Respiratory exam: Present: CTAB. Absent: accessory muscle use, rales, rhonchi, wheezes - Cardiovascular Cardiovascular exam: Present: RRR, +S1, +S2. Absent: diastolic murmur, gallop, rubs, systolic murmur - GI/Abdominal GI/Abdominal exam: Present: normal bowel sounds, soft, no peritoneal signs. Absent: distended, tenderness - Extremities Exam Extremities exam: Present: full ROM, warm, radial pulses palpable and symetrical. Absent: calf tenderness, cyanotic, pedal edema Internal Medicine: Result - Labs CBC & Chem 7: 01/03/17 04:10 01/03/17 04:10 Labs: Short CBC 01/03/17 Range/Units 04:10 WBC 9.7 (4.3-11.1) K/mcL Hgb 8.3 L (12.9-16.9) g/dL Hct 27.6 L (37.5-50.1) % Plt Count 188 (140-400) K/mcL Neutrophils # 7.0 (1.6-8.9) K/mcL BMP 01/03/17 04:10 Sodium 138 Potassium 5.4 H Chloride 103 Carbon Dioxide 27 BUN 37 H Creatinine 1.56 H Glucose 111 H Calcium 9.4 - ABG Interpretation ABG results: PT/INR, D-dimer PT 12.4 Seconds (9.4-12.1) H 12/30/16 07:36 - VTE Documentation of Mechanical Device: Intermittent pneumatic compression device Consult Discharge Plan - Plan [facility]errals: [facility] [Primary Care Provider] -
[2017-01-04 05:08] LABS: Basophils # 0.1 K/mcL (0.0-0.2); Basophils % 0.5 %; Eosinophils # 0.3 K/mcL (0.0-0.6); Hematocrit 24.3 % (37.5-50.1); Hemoglobin 7.4 g/dL (12.9-16.9); Immature Granulocytes % 0.4 % (0-4); Lymphocytes # 1.2 K/mcL (0.6-4.6); Lymphocytes % 12.5 %; Mean Corpuscular HGB Conc 30.5 g/dL (31.6-35.5); Mean Corpuscular Hemoglobin 26.7 pg (28.0-33.3); Mean Corpuscular Volume 87.7 fL (83.0-100.0); Mean Platelet Volume 11.3 fL (9.4-12.4); Monocytes # 0.8 K/mcL (0.0-1.3); Monocytes % 8.8 %; Neutrophils # 7.1 K/mcL (1.6-8.9); Platelet Count 193 K/mcL (140-400); Red Blood Count 2.77 M/mcL (4.19-5.50); Red Cell Distribution Width 15.1 % (11.5-14.5); Segmented Neutrophils % 74.8 %
[2017-01-04] MEDS: Artificial Tears SOLN 15 ML BOTTLE OP SCH ×4 (08:40→21:05)
[2017-01-04] MEDS: Gabapentin 300 MG CAPSULE PO SCH ×3 (08:44→21:06)
[2017-01-04] MEDS: *HR* OxyCODONE ER (12 HR) 20 MG TABLET PO SCH ×2 (08:44→21:06)
[2017-01-04] MEDS: Thiamine (B-1) 100 MG TABLET PO SCH (08:45)
[2017-01-04] MEDS: Aspirin Enteric Coated 81 MG Tablet PO SCH (08:45)
[2017-01-04] MEDS: Ascorbic Acid 500 MG TABLET PO SCH (08:45)
[2017-01-04] MEDS: Insulin LISPRO 300 UNITS/3 ML VIAL SQ SCH ×4 (08:45→20:30)
[2017-01-04] MEDS: Sennosides/Docusate Sodium TABLET PO SCH ×2 (08:45→21:05)
[2017-01-04] MEDS: Saliva Stimulant 100ml BOTTLE PO SCH ×2 (08:59→21:05)
--- NOTE | 2017-01-04 10:26 | Palliative Progress Note ---
<Mesfin Robertson - Last Filed: 01/04/17 10:23> Date of Encounter: 01/04/17 Time of Encounter: 10:24 - Assessment and plan (1) Goals of care, counseling/discussion Current Visit: Yes Status: Acute Assessment and plan: CODE STATUS DNR CCA. Ultimate plan is to return to [facility]. Ultimate goal stated in the previous days is to return home but the patient has been agreeable to return to [facility] for further rehabilitation and strengthening. (2) Abdominal pain Current Visit: Yes Status: Acute Assessment and plan: No complaints at this time. Continue current medication. Qualifiers: Abdominal location: unspecified location Qualified Code(s): R10.9 - Unspecified abdominal pain (3) Gross hematuria Current Visit: No Status: Acute Assessment and plan: Patient continues to have hematuria and his hemoglobin dropped from 8.3 to 7.4 today. Patient would benefit from radiation treatments to possibly help control bleeding, tentative plan is for this to start on Sunday. Urology may also consider cystoscopy in the near future. Further management per primary team and urology (4) Prostate cancer metastatic to intrapelvic lymph node Current Visit: Yes Status: Chronic Assessment and plan: Patient stated previously that his goals are to continue to pursue chemotherapy and radiation treatments that may be available to him. - Time Spent With Patient Total time spent is greater than 50% in coordination of care (as documented) at patient's floor/unit and/or counseling patient: - Subjective Interval history: Patient seen and examined at bedside. Patient does seem to be more confused than previous exams, patient was alert and oriented to person and place but not time today. Patient has no complaints today. He states he wants to go home. Denies pain, nausea or vomiting. - Constitutional Vitals: Abnormal lab results RBC 2.77 M/mcL (4.19-5.50) L 01/04/17 04:41 Hgb 7.4 g/dL (12.9-16.9) L 01/04/17 04:41 Hct 24.3 % (37.5-50.1) L 01/04/17 04:41 MCH 26.7 pg (28.0-33.3) L 01/04/17 04:41 MCHC 30.5 g/dL (31.6-35.5) L 01/04/17 04:41 RDW 15.1 % (11.5-14.5) H 01/04/17 04:41 PT 12.4 Seconds (9.4-12.1) H 12/30/16 07:36 Potassium 5.4 mEq/L (3.5-4.5) H 01/03/17 04:10 BUN 37 mg/dL (8-26) H 01/03/17 04:10 Creatinine 1.56 mg/dL (0.72-1.25) H 01/03/17 04:10 Est GFR ( Amer) 54 (> 60) L 01/03/17 04:10 Est GFR (Non-Af Amer) 44 (> 60) L 01/03/17 04:10 Glucose 111 mg/dL (70-99) H 01/03/17 04:10 POC Glucose 133 (58-89) H 01/04/17 03:34 Magnesium 1.3 mg/dL (1.6-2.6) L 12/31/16 06:01 Troponin I 0.07 ng/mL (0-0.03) H* 12/30/16 07:36 Total Testosterone 19 ng/dL (221-716) L 01/01/17 19:38 Ur Specimen Adequacy See below A 12/30/16 08:49 Urine Color Red (Yellow) A 12/30/16 08:49 Urine Clarity Cloudy (Clear) A 12/30/16 08:49 Ur Specific [place] 1.026 (1.010-1.025) H 12/30/16 08:49 Urine Protein >=1000 mg/dL (Neg-Trace) H 12/30/16 08:49 Urine Glucose (UA) 100 mg/dL (Normal) H 12/30/16 08:49 Urine Ketones Trace mg/dL (Negative) H 12/30/16 08:49 Urine Blood Large (Negative) H 12/30/16 08:49 Urine Nitrite Positive (Negative) A 12/30/16 08:49 Urine Bilirubin Small (Negative) H 12/30/16 08:49 Ur Leukocyte Esterase Small (Negative) H 12/30/16 08:49 Ur Culture Indicated? YES (NO) A 12/30/16 08:49 General appearance: Present: no acute distress - ENT ENT exam: Present: mucous membranes moist - Respiratory Respiratory exam: Present: CTAB. Absent: rales, rhonchi, wheezes - Cardiovascular Cardiovascular exam: Present: RRR. Absent: gallop, rubs, systolic murmur - GI/Abdominal GI/Abdominal exam: Present: normal bowel sounds, soft. Absent: distended, tenderness - Additional comments: Bright red Blood in Ramos bag. - Extremities Exam Extremities exam: Absent: pedal edema - Neurological Exam Neurological exam: Present: alert, altered (Oriented to person and place but not time), no focal deficits Palliative Quality Palliative Quality: Screen for Code Status: Yes, Screen for Goals of Care: Yes, Screen for Pain: Yes, If Pain Regimen Started, Initiate Bowel Regimen: No (Will recommend), Screen for Nausea/Vomitting: Yes Code Status: 12/30/16 10:10 DNR [Resuscitation Status: Active] [RES] Routine Comment: ok with intubation for respiratory purposes only Resuscitation Status: DNR-Comfort Care-Arrest - Labs CBC & Chem 7: 01/04/17 04:41 01/03/17 04:10 Labs: Laboratory Results - last 24 hr 01/03/17 01/03/17 01/03/17 12:42 17:28 17:33 WBC RBC Hgb Hct MCV MCH MCHC RDW Plt Count MPV Immature Gran % Seg Neutrophils % Lymphocytes % Monocytes % Eosinophils % Basophils % Neutrophils # Lymphocytes # Monocytes # Eosinophils # Basophils # POC Glucose 159 H 265 H 120 H 01/03/17 01/03/17 01/04/17 20:24 23:29 03:34 WBC RBC Hgb Hct MCV MCH MCHC RDW Plt Count MPV Immature Gran % Seg Neutrophils % Lymphocytes % Monocytes % Eosinophils % Basophils % Neutrophils # Lymphocytes # Monocytes # Eosinophils # Basophils # POC Glucose 146 H 136 H 133 H 01/04/17 04:41 WBC 9.5 RBC 2.77 L Hgb 7.4 L Hct 24.3 L MCV 87.7 MCH 26.7 L MCHC 30.5 L RDW 15.1 H Plt Count 193 MPV 11.3 Immature Gran % 0.4 Seg Neutrophils % 74.8 Lymphocytes % 12.5 Monocytes % 8.8 Eosinophils % 3.0 Basophils % 0.5 Neutrophils # 7.1 Lymphocytes # 1.2 Monocytes # 0.8 Eosinophils # 0.3 Basophils # 0.1 POC Glucose - ABG Interpretation ABG results: PT/INR, D-dimer PT 12.4 Seconds (9.4-12.1) H 12/30/16 07:36 Consult Discharge Plan - Plan [facility]errals: [facility] [Primary Care Provider] - <Arron Manzano - Last Filed: 01/04/17 13:05> Date of Encounter: 01/04/17 - Assessment and plan (1) Abdominal pain Current Visit: Yes Status: Acute Qualifiers: Abdominal location: unspecified location Qualified Code(s): R10.9 - Unspecified abdominal pain (2) [place] hematuria Current Visit: Yes Status: Acute (3) Acute hypercapnic respiratory failure Current Visit: No Status: Acute (4) Prostate cancer metastatic to intrapelvic lymph node Current Visit: No Status: Chronic (5) Goals of care, counseling/discussion Current Visit: No Status: Acute - Time Spent With Patient Total time spent is greater than 50% in coordination of care (as documented) at patient's floor/unit and/or counseling patient: - Constitutional Vitals: Abnormal lab results RBC 2.77 M/mcL (4.19-5.50) L 01/04/17 04:41 Hgb 7.4 g/dL (12.9-16.9) L 01/04/17 04:41 Hct 24.3 % (37.5-50.1) L 01/04/17 04:41 MCH 26.7 pg (28.0-33.3) L 01/04/17 04:41 MCHC 30.5 g/dL (31.6-35.5) L 01/04/17 04:41 RDW 15.1 % (11.5-14.5) H 01/04/17 04:41 PT 12.4 Seconds (9.4-12.1) H 12/30/16 07:36 Potassium 5.4 mEq/L (3.5-4.5) H 01/03/17 04:10 BUN 37 mg/dL (8-26) H 01/03/17 04:10 Creatinine 1.56 mg/dL (0.72-1.25) H 01/03/17 04:10 Est GFR ( Amer) 54 (> 60) L 01/03/17 04:10 Est GFR (Non-Af Amer) 44 (> 60) L 01/03/17 04:10 Glucose 111 mg/dL (70-99) H 01/03/17 04:10 POC Glucose 133 (58-89) H 01/04/17 03:34 Magnesium 1.3 mg/dL (1.6-2.6) L 12/31/16 06:01 Troponin I 0.07 ng/mL (0-0.03) H* 12/30/16 07:36 Total Testosterone 19 ng/dL (221-716) L 01/01/17 19:38 Ur Specimen Adequacy See below A 12/30/16 08:49 Urine Color Red (Yellow) A 12/30/16 08:49 Urine Clarity Cloudy (Clear) A 12/30/16 08:49 Ur Specific [place] 1.026 (1.010-1.025) H 12/30/16 08:49 Urine Protein >=1000 mg/dL (Neg-Trace) H 12/30/16 08:49 Urine Glucose (UA) 100 mg/dL (Normal) H 12/30/16 08:49 Urine Ketones Trace mg/dL (Negative) H 12/30/16 08:49 Urine Blood Large (Negative) H 12/30/16 08:49 Urine Nitrite Positive (Negative) A 12/30/16 08:49 Urine Bilirubin Small (Negative) H 12/30/16 08:49 Ur Leukocyte Esterase Small (Negative) H 12/30/16 08:49 Ur Culture Indicated? YES (NO) A 12/30/16 08:49 - Attending Attestation I examined this patient and my medical decision-making was reviewed with the NETWORK DESIGNER/PA/Advanced Practice Nurse/Resident Physician. I agree with the documented findings, disposition and treatment plan as described except to the extent set forth below. Palliative Quality Code Status: 12/30/16 10:10 DNR [Resuscitation Status: Active] [RES] Routine Comment: ok with intubation for respiratory purposes only Resuscitation Status: DNR-Comfort Care-Arrest - Labs CBC & Chem 7: 01/04/17 04:41 01/03/17 04:10 Labs: Laboratory Results - last 24 hr 01/03/17 01/03/17 01/03/17 17:28 17:33 20:24 WBC RBC Hgb Hct MCV MCH MCHC RDW Plt Count MPV Immature Gran % Seg Neutrophils % Lymphocytes % Monocytes % Eosinophils % Basophils % Neutrophils # Lymphocytes # Monocytes # Eosinophils # Basophils # POC Glucose 265 H 120 H 146 H 01/03/17 01/04/17 01/04/17 23:29 03:34 04:41 WBC 9.5 RBC 2.77 L Hgb 7.4 L Hct 24.3 L MCV 87.7 MCH 26.7 L MCHC 30.5 L RDW 15.1 H Plt Count 193 MPV 11.3 Immature Gran % 0.4 Seg Neutrophils % 74.8 Lymphocytes % 12.5 Monocytes % 8.8 Eosinophils % 3.0 Basophils % 0.5 Neutrophils # 7.1 Lymphocytes # 1.2 Monocytes # 0.8 Eosinophils # 0.3 Basophils # 0.1 POC Glucose 136 H 133 H - ABG Interpretation ABG results: PT/INR, D-dimer PT 12.4 Seconds (9.4-12.1) H 12/30/16 07:36
[2017-01-04] MEDS ORDERED: 0.9 % Sodium Chloride 1,000 ML IR PRN (11:22)
--- NOTE | 2017-01-04 17:42 | Internal Med Progress Note ---
Date of Encounter: 01/03/17 Time of Encounter: 12:00 - Assessment and plan (1) Prostate cancer metastatic to intrapelvic lymph node Current Visit: Yes Status: Chronic Assessment and plan: Patient has been admitted with hematuria secondary to metastatic high-grade, castration resistant prostate cancer and is noted to have poor prognosis. Patient has also been seen by palliative care team and oncology and he opted to pursue outpatient chemotherapy and palliative radiation. Radiation oncology evaluation appreciated, patient is positively scheduled for palliative radiation in the hopes of stopping the bleed, on 01/05/17. Case discussed with palliative care team, patient is noted to have waxing and waning mental status and is currently unable to make medical decisions. However , he has been seen by this team during his last admission when he was completely oriented and wished to be DNR comfort care arrest. He does not have a medical power of trade mark attorney as of now, palliative care case management social worker working on this. (2) Gross hematuria Current Visit: Yes Status: Acute Assessment and plan: Related to underlying prostate cancer. Hematuria initially improved, however continues bladder irrigation has been resumed today due to persistent cross hematuria and clot retention. Urology on board. Continue to monitor hemoglobin closely. (3) History of atrial fibrillation Current Visit: Yes Status: Chronic Assessment and plan: Patient was recently admitted for possible anemia and GI bleed, at which time and coagulation has been discontinued for atrial fibrillation. Currently noted to be on baby aspirin, will discontinue. Continue rate control medications. (4) COPD (chronic obstructive pulmonary disease) Current Visit: Yes Status: Chronic Assessment and plan: Currently not in acute exacerbation. Continue when necessary bronchodilators and supplemental oxygen. Qualifiers: COPD type: unspecified COPD Qualified Code(s): J44.9 - Chronic obstructive pulmonary disease, unspecified (5) Acute encephalopathy Current Visit: Yes Status: Acute Assessment and plan: Patient noted to have delirium with waxing and waning mental status. This is probably his new baseline due to his multiple medical comorbidities. High risk for complications. (6) UTI (urinary tract infection) Current Visit: Yes Status: Ruled-out Qualifiers: Urinary tract infection type: site unspecified Hematuria presence: with hematuria Qualified Code(s): N39.0 - Urinary tract infection, site not specified; R31.9 - Hematuria, unspecified (7) DMII (diabetes mellitus, type 2) Current Visit: Yes Status: Chronic Qualifiers: Diabetes mellitus complication status: with unspecified complications Diabetes mellitus terminal press operator insulin use: with fci use Qualified Code(s) : E11.8 - Type 2 diabetes mellitus with unspecified complications; Z79.4 - halfway (current) use of insulin (8) Depression Current Visit: Yes Status: Chronic Qualifiers: Depression Type: unspecified Qualified Code(s): F32.9 - Major depressive disorder, single episode, unspecified - Subjective Interval history: Continues to be drowsy but arousable to touch. Able to report that he is feeling well, remembers that he is admitted because of hematuria but cannot answer much regarding his medical problems. Mental status noted to wax and wane. - Constitutional Vitals: Temp Pulse Resp BP Pulse Ox 98.5 F 88 18 110/70 96 01/04/17 17:03 01/04/17 16:30 01/04/17 16:30 01/04/17 16:30 01/04/17 16:30 General appearance: Present: A&O X 1 - Respiratory Respiratory exam: Present: CTAB. Absent: accessory muscle use, rales, rhonchi, wheezes - Cardiovascular Cardiovascular exam: Present: RRR, +S1, +S2. Absent: diastolic murmur, gallop, rubs, systolic murmur - GI/Abdominal GI/Abdominal exam: Present: normal bowel sounds, soft, no peritoneal signs. Absent: distended, tenderness Additional comments: Continuous bladder irrigation ongoing - Extremities Exam Extremities exam: Present: warm, radial pulses palpable and symetrical. Absent : calf tenderness, cyanotic, pedal edema - Neurological Exam Neurological exam: Present: altered, no focal deficits. Absent: pronater drift , facial droop, speech deficit Internal Medicine: Result - Labs CBC & Chem 7: 01/04/17 04:41 01/03/17 04:10 Labs: Short CBC 01/04/17 Range/Units 04:41 WBC 9.5 (4.3-11.1) K/mcL Hgb 7.4 L (12.9-16.9) g/dL Hct 24.3 L (37.5-50.1) % Plt Count 193 (140-400) K/mcL Neutrophils # 7.1 (1.6-8.9) K/mcL - ABG Interpretation ABG results: PT/INR, D-dimer PT 12.4 Seconds (9.4-12.1) H 12/30/16 07:36 - VTE Documentation of Mechanical Device: Intermittent pneumatic compression device Consult Discharge Plan - Plan Referrals: [facility] [Primary Care Provider] -
--- NOTE | 2017-01-04 17:48 | Urology Progress Note ---
Date of Encounter: 01/04/17 Time of Encounter: 17:45 - Assessment and Plan (1) Gross hematuria Current Visit: No Status: Acute Assessment and plan: 71 year old man with advanced prostate cancer and gross hematuria. I recommend proceeding with a cystoscopy, clot evacuation, fulguration, possible TURP, possible TURBT, possible left ureteroscopy and stent change to assess where the bleeding is coming from. This may be coming down from his kidney and if there is no concerning source of bleeding, we may need to consider angiography of his left kidney. He was informed of all risks of the surgery and is willing to proceed. (2) Prostate cancer metastatic to intrapelvic lymph node Current Visit: No Status: Chronic Assessment and plan: Oncology on board. Progress Note Narrative: 71 year old man with hematuria and metastatic prostate cancer. HCT dropped to 24 today. CBI has been turned up in regards to rate. Objective Initial Vital Signs Temp Pulse Resp BP Pulse Ox 97.7 F 93 18 137/82 100 12/30/16 06:32 12/30/16 06:32 12/30/16 06:32 12/30/16 06:32 12/30/16 06:32 - General physical appearance Present: well developed, well nourished, no distress - Respiratory Present: normal respiratory effort - Abdomen Present: soft - Genitourinary Urine Appearance: Present: Hematuria - Labs 01/04/17 04:41 01/03/17 04:10 - VTE Documentation of Mechanical Device: Intermittent pneumatic compression device Consult Discharge Plan - Plan Referrals: [facility] [Primary Care Provider] -
[2017-01-04] MEDS ORDERED: *HR* HYDROmorphone (PF) 1 MG/ML SYRINGE IVP PRN (21:53)
[2017-01-04] MEDS ORDERED: *HR* HYDROmorphone (PF) 1 MG/ML SYRINGE ONE (21:55)
[2017-01-05] MEDS: Insulin LISPRO 300 UNITS/3 ML VIAL SQ SCH ×7 (06:23→23:53)
--- NOTE | 2017-01-05 07:44 | Urology Progress Note ---
Date of Encounter: 01/05/17 Time of Encounter: 07:42 - Assessment and Plan (1) Gross hematuria Current Visit: No Status: Acute Assessment and plan: hematuria seems improved today, but he has had intermittent bleeding. Plan to proceed to OR for cystoscopy, resection, possible left ureteroscopy. I discussed at length with Ms. Contreras the risks and benefits. She agrees with the plan. (2) Prostate cancer metastatic to intrapelvic lymph node Current Visit: No Status: Chronic Progress Note Narrative: Hematuria seems improved today. I spoke at length with his neice. CBI continues. Objective Initial Vital Signs Temp Pulse Resp BP Pulse Ox 97.7 F 93 18 137/82 100 12/30/16 06:32 12/30/16 06:32 12/30/16 06:32 12/30/16 06:32 12/30/16 06:32 - General physical appearance Present: well developed, other (sleeping) - Respiratory Present: normal expansion - Genitourinary Urine Appearance: Present: Clear, Small Blood Clots - Labs 01/04/17 04:41 01/03/17 04:10 - VTE Documentation of Mechanical Device: Intermittent pneumatic compression device Consult Discharge Plan - Plan Referrals: [facility] [Primary Care Provider] -
[2017-01-05] MEDS: *HR* OxyCODONE ER (12 HR) 20 MG TABLET PO SCH ×2 (09:43→20:10)
[2017-01-05] MEDS: Sennosides/Docusate Sodium TABLET PO SCH ×2 (09:44→20:10)
[2017-01-05] MEDS: Thiamine (B-1) 100 MG TABLET PO SCH (09:44)
[2017-01-05] MEDS: Ascorbic Acid 500 MG TABLET PO SCH (09:44)
[2017-01-05] MEDS: Gabapentin 300 MG CAPSULE PO SCH ×3 (09:44→20:10)
[2017-01-05] MEDS: Artificial Tears SOLN 15 ML BOTTLE OP SCH ×4 (09:51→20:13)
[2017-01-05] MEDS ORDERED: *HR* OxyCODONE Immed Rel 5 MG TABLET PO PRN (09:52)
[2017-01-05] MEDS: 0.9 % Sodium Chloride 250 ML ONE (09:57)
[2017-01-05] MEDS: Saliva Stimulant 100ml BOTTLE PO SCH ×2 (11:39→20:10)
[2017-01-05] MEDS ORDERED: Levofloxacin 500 MG/100 ML 500 MG/100 ML BAG IVPB SCH (12:00)
[2017-01-05 12:07] LABS: Basophils % 0.3 %; Eosinophils % 0.1 %; Hematocrit 25.3 % (37.5-50.1); Hemoglobin 7.9 g/dL (12.9-16.9); Immature Granulocytes % 0.6 % (0-4); Lymphocytes # 0.8 K/mcL (0.6-4.6); Lymphocytes % 5.3 %; Mean Corpuscular HGB Conc 31.2 g/dL (31.6-35.5); Mean Corpuscular Hemoglobin 26.5 pg (28.0-33.3); Mean Corpuscular Volume 84.9 fL (83.0-100.0); Mean Platelet Volume 10.9 fL (9.4-12.4); Monocytes # 1.1 K/mcL (0.0-1.3); Monocytes % 6.8 %; Platelet Count 219 K/mcL (140-400); Red Blood Count 2.98 M/mcL (4.19-5.50); Red Cell Distribution Width 14.9 % (11.5-14.5); Segmented Neutrophils % 86.9 %
[2017-01-05 12:17] LABS: Basophils # 0.1 K/mcL (0.0-0.2); Neutrophils # 13.5 K/mcL (1.6-8.9)
[2017-01-05 12:23] LABS: Calcium 9.6 mg/dL (8.6-10.8)
[2017-01-05 12:27] LABS: Potassium 6.7 mEq/L (3.5-4.5)
[2017-01-05 14:19] LABS: Albumin/Globulin Ratio 0.9 (1.1-2.2); Bilirubin,Total 0.4 mg/dL (0.2-1.2); Calcium 9.6 mg/dL (8.6-10.8); Globulin 3.5 g/dL (2.4-3.5); Total Protein 6.5 g/dL (6.0-8.3)
[2017-01-05 14:22] LABS: Potassium 6.5 mEq/L (3.5-4.5)
[2017-01-05] MEDS ORDERED: Insulin Regular, Human 100 UNIT/ML IV ONE ×2 (14:36→20:07)
[2017-01-05] MEDS ORDERED: Calcium Gluconate 1,000 MG in D5% in Water 100 ML IVPB ONE ×2 (14:39→20:07)
[2017-01-05] MEDS ORDERED: *HR* Dextrose 50 % in Water (Syg) 50 ML SYRINGE IVP ONE ×2 (14:39→20:07)
[2017-01-05] MEDS ORDERED: Albuterol 2.5 MG/3 ML NEBULIZER IH ONE (14:40)
[2017-01-05] MEDS ORDERED: Insulin Human Regular 5 UNIT in 0.9 % Sodium Chloride 10 ML IV ONE (14:54)
[2017-01-05] MEDS ORDERED: Levofloxacin 500 MG/100 ML 500 MG/100 ML BAG IVPB ONE (15:00)
[2017-01-05] MEDS ORDERED: *HR* Midazolam HCl 2 MG/2 ML VIAL ONE (16:03)
[2017-01-05] MEDS ORDERED: Lidocaine -MPF 4% 5 ML AMPUL ONE (16:03)
[2017-01-05] MEDS ORDERED: *HR* FentaNYL (PF) 100 MCG/2 ML VIAL ONE (16:03)
[2017-01-05] MEDS ORDERED: Ondansetron 4 MG/2 ML VIAL ONE (16:03)
[2017-01-05] MEDS ORDERED: Dexamethasone 4 MG/ML VIAL ONE (16:03)
[2017-01-05] MEDS ORDERED: *HR* Rocuronium Bromide 50 MG/5 ML VIAL ONE (16:03)
[2017-01-05] MEDS ORDERED: *HR* Propofol 200 MG/20 ML VIAL IVP ONE (16:03)
[2017-01-05] MEDS ORDERED: *HR* Succinylcholine 200 MG/10 ML VIAL IVP ONE (16:03)
[2017-01-05] MEDS ORDERED: Lidocaine -MPF 2% 2 ML VIAL ONE (16:03)
[2017-01-05] MEDS ORDERED: Neostigmine Methylsulfate 3 MG/3 ML SYRINGE ONE (16:04)
--- NOTE | 2017-01-05 16:10 | Anesthesia Evaluation PreOp ---
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 HX Other Medical History: Renal (CKD Stage 3), Diabetes Type II Alcohol Use: none Drug use: unknown Medications and Allergies Acetaminophen [Tylenol] 325 mg PO BID PRN 10/17/15 [History] Allopurinol [Zyloprim 300 MG] 300 mg PO DAILY 10/17/15 [History] Ascorbic Acid [Vitamin C] 1,000 mg PO DAILY 10/17/15 [History] Carboxymethylcellulos/Glycerin [Refresh Optive Eye Drops] 1 drop OP QID [History] Docusate Sodium [Colace] 100 mg PO BID 10/17/15 [History] Insulin Glargine [Lantus] 14 unit SQ HS 10/17/15 [History] Ipratropium/Albuterol Neb [Duoneb] 3 ml IH Q6H PRN 10/17/15 [History] Modafinil [Provigil] 400 mg PO QAM 10/17/15 [History] Multivitamin [Multivitamins] 1 tab PO QAM 10/17/15 [History] Omeprazole [PriLOSEC] 40 mg PO DAILY 10/17/15 [History] Saliva Stimulant [Biotene Moisturizing Rinse] 5 spray PO BID 10/17/15 [History] Capsaicin 0.025% [Trixaicin] 1 appl TP DAILY PRN 05/24/16 [History] Pyridoxine HCl [Vitamin B-6] 100 mg PO DAILY 05/24/16 [History] Gabapentin [Neurontin] 300 mg PO TID 11/17/16 [History] Amlodipine [Norvasc] 5 mg PO DAILY #30 tablet 11/27/16 [Rx] Sertraline [Zoloft] 50 mg PO QAM #30 tablet 11/30/16 [Rx] Albuterol Sulfate [Proair Hfa] 1 puff IH Q6H PRN 12/20/16 [History] Amino Acids/Protein Hydrolys [Pro-Stat Awc Liquid Packet] 30 ml PO QAM 12/20/16 [History] Aspirin Enteric Coated [Aspirin EC] 81 mg PO DAILY 12/20/16 [History] Atorvastatin [Lipitor] 40 mg PO HS 12/20/16 [History] Benzocaine/Menthol [Cepacol Sore Throat Lozenge] 1 lozenge PO Q6H PRN 12/20/16 [ History] Calcium Carbonate [Calcium] 1,000 mg PO BID 12/20/16 [History] Ferrous Gluconate 324 mg PO BID 12/20/16 [History] Furosemide [Lasix] 80 mg PO QAM 12/20/16 [History] Insulin LISPRO [HumaLOG] 2 - 12 units SQ ACHS 12/20/16 [History] Lisinopril 2.5 mg PO BID 12/20/16 [History] Tamsulosin [Flomax] 0.4 mg PO DAILY 12/20/16 [History] U-Lactin 1 appl TP BID 12/20/16 [History] Carvedilol [Coreg] 3.125 mg PO BIDWM tablet 12/27/16 [Rx] HydrALAZINE 10 mg IVP Q6HR PRN #0 vial 12/27/16 [Rx] OxyCODONE Immed Rel [Roxicodone 5 MG] 5 mg PO Q4H PRN #18 tablet 12/27/16 [Rx] Phenazopyridine [Pyridium] 200 mg PO TID tablet 12/27/16 [Rx] Cefepime HCl/Dextrose, Iso-Osm [Cefepime 1 gm Injection] 1 gm IV Q12H 12/30/16 [ History] Allergies IVP dye Allergy (Uncoded 10/17/15 06:47) Vomiting Anesthesia Results - Labs 01/05/17 11:56 01/05/17 13:55
[2017-01-05] MEDS ORDERED: Naloxone 0.4 MG/ML INJ ONE (16:16)
[2017-01-05] MEDS ORDERED: Ketorolac 30 MG/ML VIAL ONE (16:26)
--- NOTE | 2017-01-05 16:37 | Event Note ---
Date of Encounter: 01/05/17 Time of Encounter: 16:36 71 year old man with gross hematuria and metastatic prostate cancer. He had some worsening renal function today and potassium is elevated. We are going to cancel his surgery today and see about tomorrow. I will order a CT scan without contrast to further evaluate his bladder and kidneys.
[2017-01-05] MEDS ORDERED: Naloxone 0.4 MG/ML INJ IVP ONE ×2 (16:46→20:12)
[2017-01-05] MEDS: Ondansetron 4 MG/2 ML VIAL IVP PRN (17:33)
[2017-01-05 18:36] LABS: Basophils % 0.2 %; Eosinophils % 0.2 %; Hematocrit 25.3 % (37.5-50.1); Hemoglobin 7.9 g/dL (12.9-16.9); Immature Granulocytes % 0.9 % (0-4); Lymphocytes # 0.6 K/mcL (0.6-4.6); Mean Corpuscular HGB Conc 31.2 g/dL (31.6-35.5); Mean Corpuscular Hemoglobin 26.8 pg (28.0-33.3); Mean Corpuscular Volume 85.8 fL (83.0-100.0); Mean Platelet Volume 10.4 fL (9.4-12.4); Monocytes # 1.2 K/mcL (0.0-1.3); Neutrophils # 17.7 K/mcL (1.6-8.9); Nucleated Red Blood Cells 0.1 /100 WBC (0); Platelet Count 220 K/mcL (140-400); Red Blood Count 2.95 M/mcL (4.19-5.50); Red Cell Distribution Width 14.9 % (11.5-14.5); Segmented Neutrophils % 89.7 %
[2017-01-05 18:47] LABS: Calcium 9.7 mg/dL (8.6-10.8); Potassium 6.4 mEq/L (3.5-4.5)
[2017-01-05] MEDS ORDERED: Lactulose Oral Soln 20 GM/30 ML UDC PO ONE (20:12)
[2017-01-06] MEDS: Ondansetron 4 MG/2 ML VIAL IVP PRN (02:21)
[2017-01-06] MEDS ORDERED: Naloxone 0.4 MG/ML INJ IVP ONE ×2 (02:37→03:32)
[2017-01-06] MEDS ORDERED: Naloxone 0.4 MG/ML INJ ONE (02:41)
[2017-01-06 03:49] LABS: Basophils % 0.2 %; Eosinophils % 0.2 %; Hematocrit 24.6 % (37.5-50.1); Hemoglobin 7.4 g/dL (12.9-16.9); Immature Granulocytes % 0.9 % (0-4); Lymphocytes # 0.8 K/mcL (0.6-4.6); Lymphocytes % 4.5 %; Mean Corpuscular HGB Conc 30.1 g/dL (31.6-35.5); Mean Corpuscular Hemoglobin 26.1 pg (28.0-33.3); Mean Corpuscular Volume 86.9 fL (83.0-100.0); Mean Platelet Volume 10.9 fL (9.4-12.4); Monocytes # 1.7 K/mcL (0.0-1.3); Monocytes % 9.1 %; Neutrophils # 15.6 K/mcL (1.6-8.9); Nucleated Red Blood Cells 0.1 /100 WBC (0); Platelet Count 220 K/mcL (140-400); Red Blood Count 2.83 M/mcL (4.19-5.50); Red Cell Distribution Width 15.2 % (11.5-14.5); Segmented Neutrophils % 85.1 %
[2017-01-06 04:02] LABS: ABG HCO3 31.7 mEQ/L (21-27); ABG Oxygen Saturation 99 % (95-98); ABG PCO2 69 mmHg (35-45); ABG PH 7.27 pH Units (7.32-7.45); ABG PO2 165 mmHg (85-104); ABG TCO2 33.8 mEq/L (20-26)
[2017-01-06 04:04] LABS: Blood Gas FiO2 44 %
[2017-01-06 04:06] LABS: Calcium 9.6 mg/dL (8.6-10.8); Magnesium 1.8 mg/dL (1.6-2.6)
[2017-01-06] MEDS: Insulin LISPRO 300 UNITS/3 ML VIAL SQ SCH ×5 (04:19→23:44)
[2017-01-06] MEDS ORDERED: Albuterol 2.5 MG/3 ML NEBULIZER IH ONE (04:47)
[2017-01-06] MEDS ORDERED: Calcium Gluconate 1,000 MG in D5% in Water 100 ML IVPB ONE (04:47)
[2017-01-06] MEDS ORDERED: Vancomycin 2,000 MG in D5% in Water 250 ML IVPB SCH (05:00)
[2017-01-06] MEDS ORDERED: 0.9 % Sodium Chloride 500 ML ONE (05:24)
[2017-01-06] MEDS ORDERED: Vancomycin 2,000 MG in D5% in Water 500 ML IVPB ONE (06:00)
[2017-01-06] MEDS ORDERED: Piperacillin/Tazobactam 3.375 GM in D5% in Water (Mini-Bag+) 100 ML IVPB SCH ×2 (06:00→18:00)
--- NOTE | 2017-01-06 07:16 | Urology Progress Note ---
Date of Encounter: 01/06/17 Time of Encounter: 07:14 - Assessment and Plan (1) Gross hematuria Current Visit: No Status: Acute Assessment and plan: Clot retention in 71 year old man with metastatic prostate cancer. 1. To OR today for urgent clot evaculation, fulguration, possible left ureteroscopy. 2. Creatinine will worsen until I can get bladder draining better. 3. Will discuss with anesthesia the urgent need for surgery today. (2) Prostate cancer metastatic to intrapelvic lymph node Current Visit: No Status: Chronic Progress Note Narrative: Hematuria worsened overnight. Ct reviewed. Large clot in bladder. K improved to 6 today. Creatinine has worsened. CT shows bilateral hydronephrosis. Plan to go to OR today for clot evacuation and fulguration. Objective Initial Vital Signs Temp Pulse Resp BP Pulse Ox 97.7 F 93 18 137/82 100 12/30/16 06:32 12/30/16 06:32 12/30/16 06:32 12/30/16 06:32 12/30/16 06:32 - General physical appearance Present: other (somnolent on face mask) - Abdomen Present: soft - Genitourinary Present: normal penis with no external lesions Urine Appearance: Present: Hematuria - Labs 01/06/17 03:03 01/06/17 03:03 Diabetes panel 01/05/17 01/05/17 01/05/17 Range/Units 11:56 13:55 18:30 Sodium 137 136 134 L (136-145) mEq/L Potassium 6.7 H* D 6.5 H* 6.4 H (3.5-4.5) mEq/L Chloride 104 102 101 (98-109) mEq/L Carbon Dioxide 19 23 21 (19-29) mEq/L BUN 50 H D 52 H 52 H (8-26) mg/dL Creatinine 3.09 H D 3.36 H 3.53 H (0.72-1.25) mg/dL Glucose 143 H 145 H 157 H (70-99) mg/dL Calcium 9.6 9.6 9.7 (8.6-10.8) mg/dL AST 17 (5-34) Units/L ALT 10 (0-55) Units/L Alkaline Phosphatase 164 H (38-126) Units/L Albumin 3.0 L (3.5-5.0) g/dL 01/06/17 Range/Units 03:03 Sodium 138 (136-145) mEq/L Potassium 6.0 H (3.5-4.5) mEq/L Chloride 100 (98-109) mEq/L Carbon Dioxide 27 (19-29) mEq/L BUN 54 H (8-26) mg/dL Creatinine 4.26 H (0.72-1.25) mg/dL Glucose 133 H (70-99) mg/dL Calcium 9.6 (8.6-10.8) mg/dL AST (5-34) Units/L ALT (0-55) Units/L Alkaline Phosphatase (38-126) Units/L Albumin (3.5-5.0) g/dL Calcium panel 01/05/17 01/05/17 01/05/17 Range/Units 11:56 13:55 18:30 Calcium 9.6 9.6 9.7 (8.6-10.8) mg/dL Albumin 3.0 L (3.5-5.0) g/dL 01/06/17 Range/Units 03:03 Calcium 9.6 (8.6-10.8) mg/dL Albumin (3.5-5.0) g/dL Pituitary panel 01/05/17 01/05/17 01/05/17 Range/Units 11:56 13:55 18:30 Sodium 137 136 134 L (136-145) mEq/L Potassium 6.7 H* D 6.5 H* 6.4 H (3.5-4.5) mEq/L Chloride 104 102 101 (98-109) mEq/L Carbon Dioxide 19 23 21 (19-29) mEq/L BUN 50 H D 52 H 52 H (8-26) mg/dL Creatinine 3.09 H D 3.36 H 3.53 H (0.72-1.25) mg/dL Glucose 143 H 145 H 157 H (70-99) mg/dL Calcium 9.6 9.6 9.7 (8.6-10.8) mg/dL 01/06/17 Range/Units 03:03 Sodium 138 (136-145) mEq/L Potassium 6.0 H (3.5-4.5) mEq/L Chloride 100 (98-109) mEq/L Carbon Dioxide 27 (19-29) mEq/L BUN 54 H (8-26) mg/dL Creatinine 4.26 H (0.72-1.25) mg/dL Glucose 133 H (70-99) mg/dL Calcium 9.6 (8.6-10.8) mg/dL Adrenal panel 01/05/17 01/05/17 01/05/17 Range/Units 11:56 13:55 18:30 Sodium 137 136 134 L (136-145) mEq/L Potassium 6.7 H* D 6.5 H* 6.4 H (3.5-4.5) mEq/L Chloride 104 102 101 (98-109) mEq/L Carbon Dioxide 19 23 21 (19-29) mEq/L BUN 50 H D 52 H 52 H (8-26) mg/dL Creatinine 3.09 H D 3.36 H 3.53 H (0.72-1.25) mg/dL Glucose 143 H 145 H 157 H (70-99) mg/dL Calcium 9.6 9.6 9.7 (8.6-10.8) mg/dL Total Bilirubin 0.4 (0.2-1.2) mg/dL AST 17 (5-34) Units/L ALT 10 (0-55) Units/L Alkaline Phosphatase 164 H (38-126) Units/L Albumin 3.0 L (3.5-5.0) g/dL 01/06/17 Range/Units 03:03 Sodium 138 (136-145) mEq/L Potassium 6.0 H (3.5-4.5) mEq/L Chloride 100 (98-109) mEq/L Carbon Dioxide 27 (19-29) mEq/L BUN 54 H (8-26) mg/dL Creatinine 4.26 H (0.72-1.25) mg/dL Glucose 133 H (70-99) mg/dL Calcium 9.6 (8.6-10.8) mg/dL Total Bilirubin (0.2-1.2) mg/dL AST (5-34) Units/L ALT (0-55) Units/L Alkaline Phosphatase (38-126) Units/L Albumin (3.5-5.0) g/dL - VTE Documentation of Mechanical Device: Intermittent pneumatic compression device Consult Discharge Plan - Plan [facility]: [facility] [Primary Care Provider[facility] -
[2017-01-06] MEDS: *HR* OxyCODONE ER (12 HR) 20 MG TABLET PO SCH (07:32)
[2017-01-06] MEDS: Saliva Stimulant 100ml BOTTLE PO SCH ×3 (07:58→21:27)
[2017-01-06] MEDS ORDERED: *HR* Metoprolol 5 MG/5 ML VIAL IVP ONE (08:03)
[2017-01-06] MEDS: Artificial Tears SOLN 15 ML BOTTLE OP SCH ×4 (08:50→20:06)
[2017-01-06] MEDS ORDERED: *HR* Propofol 200 MG/20 ML VIAL IVP ONE (08:57)
[2017-01-06] MEDS ORDERED: *HR* Rocuronium Bromide 50 MG/5 ML VIAL ONE (08:57)
[2017-01-06] MEDS ORDERED: Lidocaine -MPF 2% 2 ML VIAL ONE (08:57)
--- NOTE | 2017-01-06 09:04 | Anesthesia Evaluation PreOp ---
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, Other (acute encephalopathy) Other Medical History: Diabetes Type II Anesthesia History: Past Anesthesia (AVR) Alcohol Use: none Drug use: unknown Medications and Allergies Acetaminophen [Tylenol] 325 mg PO BID PRN 10/17/15 [History] Allopurinol [Zyloprim 300 MG] 300 mg PO DAILY 10/17/15 [History] Ascorbic Acid [Vitamin C] 1,000 mg PO DAILY 10/17/15 [History] Carboxymethylcellulos/Glycerin [Refresh Optive Eye Drops] 1 drop OP QID [History] Docusate Sodium [Colace] 100 mg PO BID 10/17/15 [History] Insulin Glargine [Lantus] 14 unit SQ HS 10/17/15 [History] Ipratropium/Albuterol Neb [Duoneb] 3 ml IH Q6H PRN 10/17/15 [History] Modafinil [Provigil] 400 mg PO QAM 10/17/15 [History] Multivitamin [Multivitamins] 1 tab PO QAM 10/17/15 [History] Omeprazole [PriLOSEC] 40 mg PO DAILY 10/17/15 [History] Saliva Stimulant [Biotene Moisturizing Rinse] 5 spray PO BID 10/17/15 [History] Capsaicin 0.025% [Trixaicin] 1 appl TP DAILY PRN 05/24/16 [History] Pyridoxine HCl [Vitamin B-6] 100 mg PO DAILY 05/24/16 [History] Gabapentin [Neurontin] 300 mg PO TID 11/17/16 [History] Amlodipine [Norvasc] 5 mg PO DAILY #30 tablet 11/27/16 [Rx] Sertraline [Zoloft] 50 mg PO QAM #30 tablet 11/30/16 [Rx] Albuterol Sulfate [Proair Hfa] 1 puff IH Q6H PRN 12/20/16 [History] Amino Acids/Protein Hydrolys [Pro-Stat Awc Liquid Packet] 30 ml PO QAM 12/20/16 [History] Aspirin Enteric Coated [Aspirin EC] 81 mg PO DAILY 12/20/16 [History] Atorvastatin [Lipitor] 40 mg PO HS 12/20/16 [History] Benzocaine/Menthol [Cepacol Sore Throat Lozenge] 1 lozenge PO Q6H PRN 12/20/16 [ History] Calcium Carbonate [Calcium] 1,000 mg PO BID 12/20/16 [History] Ferrous Gluconate 324 mg PO BID 12/20/16 [History] Furosemide [Lasix] 80 mg PO QAM 12/20/16 [History] Insulin LISPRO [HumaLOG] 2 - 12 units SQ ACHS 12/20/16 [History] Lisinopril 2.5 mg PO BID 12/20/16 [History] Tamsulosin [Flomax] 0.4 mg PO DAILY 12/20/16 [History] U-Lactin 1 appl TP BID 12/20/16 [History] Carvedilol [Coreg] 3.125 mg PO BIDWM tablet 12/27/16 [Rx] HydrALAZINE 10 mg IVP Q6HR PRN #0 vial 12/27/16 [Rx] OxyCODONE Immed Rel [Roxicodone 5 MG] 5 mg PO Q4H PRN #18 tablet 12/27/16 [Rx] Phenazopyridine [Pyridium] 200 mg PO TID tablet 12/27/16 [Rx] Cefepime HCl/Dextrose, Iso-Osm [Cefepime 1 gm Injection] 1 gm IV Q12H 12/30/16 [ History] Allergies IVP dye Allergy (Uncoded 10/17/15 06:47) Vomiting - Meds/Allergy Pre-op Review Medications Reviewed: Yes Allergies Reviewed: Yes Beta Blockers on Current Med List: Yes If Beta Blockers taken, Date/Time (Last Dose taken): 4/8 am Anesthesia Results - Labs 01/06/17 03:03 01/06/17 03:03 - Imaging EKG: image reviewed (junctional rhythm) Anesthesia Exam Vital Signs/O2 Sat, Most Current Temp Pulse Resp BP Pulse Ox 98.3 F 96 20 123/81 96 01/06/17 07:13 01/06/17 07:13 01/06/17 07:13 01/06/17 07:13 01/06/17 07:13 Weight: 129kg - 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
[2017-01-06] MEDS ORDERED: Dexamethasone 4 MG/ML VIAL ONE (10:10)
[2017-01-06] MEDS ORDERED: Ondansetron 4 MG/2 ML VIAL ONE (10:10)
[2017-01-06] MEDS ORDERED: *HR* Phenylephrine 10 MG/ML VIAL ONE (10:12)
[2017-01-06] MEDS ORDERED: Neostigmine Methylsulfate 3 MG/3 ML SYRINGE ONE (10:39)
--- NOTE | 2017-01-06 11:02 | Operative Note ---
Date of procedure: 01/06/17 Pre-op diagnosis: Hematuria, bilateral hydronephrosis Post-op diagnosis: same (Hemorrhagic cystitis) Procedure: Cystoscopy, clot evacuation, fulguration. Right ureteral stent placement. Implants: Right 6 [place]i by 26 cm double-J stent. Left ureteral stent by interventional radiology. 24 [place]i three-way Ramos catheter. Complications: None. Anesthesia: GETA Surgeon: Mars Ledezma Estimated blood loss (cc): 300 Specimen: none Condition: stable Disposition: PACU Procedure in Detail: Indications: Mr. Blas is a 71-year-old gentleman with a history of hematuria and metastatic prostate cancer.. He has a history of radiation to his prostate for cancer. He has been bleeding for some time. Conservative management has failed. In addition he has a left indwelling ureteral stent and now new right-sided hydronephrosis. He elected to undergo cystoscopy, clot evacuation, and fulguration. He is aware of the risks of the procedure including but not limited to bleeding, infection, injury to other structures, need for further procedures, bladder perforation, and the risk of anesthesia. He is willing to proceed. Procedure: After informed consent was obtained the patient was brought back to the operating room and placed in the supine position. A timeout was performed. Gen. anesthesia was administered and an endotracheal tube was placed. He was then placed in lithotomy position. His genitalia were prepped and draped in the usual sterile fashion. Using the resector sheath and the visual obturator cystoscopy was performed. The prostate was firm. There was mild lateral lobe hypertrophy. The bladder neck was friable. Upon entering the bladder there was a large clot in the bladder. I irrigated out all the clot. Approximately 300 mL of clot evacuated out. Once the clot was removed I then surveyed the bladder for bleeding. The bladder was quite erythematous. There is no distinct location of bleeding, but the entire urothelium was inflamed. I cauterized some areas that were actively bleeding at the bladder neck. This seemed to control the bleeding. His right ureteral orifice was difficult to identify. Given the new right hydronephrosis, I thought it be best to place a stent. The cystoscope was then inserted. A zip wire was placed up the area where I thought the ureteral orifice was located and it fortunately passed easily. Fluoroscopy showed a good curl within the kidney. A 6 [place]i by 26 cm double-J stent was then placed. A good curl seen in the kidney and the bladder. I reinserted the resectoscope. I do not see any further areas of bleeding other than the general ooze from the urothelium. At this point I felt it would be best to place a three-way catheter and leave him on into his bladder irrigation. A 24 [place]i three-way catheter was then placed. 30 mL of sterile water was instilled into the balloon. The catheter was irrigated and remained clear. Continuous bladder irrigation was then started. The patient was then brought to the ICU. All sponge, needle, and instrument counts were correct.
--- NOTE | 2017-01-06 11:25 | Pulmonology Consult Note ---
<Bhavna Correia M - Last Filed: 01/06/17 12:39> Date of Encounter: 01/06/17 Medications and Allergies Acetaminophen [Tylenol] 325 mg PO BID PRN 10/17/15 [History] Allopurinol [Zyloprim 300 MG] 300 mg PO DAILY 10/17/15 [History] Ascorbic Acid [Vitamin C] 1,000 mg PO DAILY 10/17/15 [History] Carboxymethylcellulos/Glycerin [Refresh Optive Eye Drops] 1 drop OP QID [History] Docusate Sodium [Colace] 100 mg PO BID 10/17/15 [History] Insulin Glargine [Lantus] 14 unit SQ HS 10/17/15 [History] Ipratropium/Albuterol Neb [Duoneb] 3 ml IH Q6H PRN 10/17/15 [History] Modafinil [Provigil] 400 mg PO QAM 10/17/15 [History] Multivitamin [Multivitamins] 1 tab PO QAM 10/17/15 [History] Omeprazole [PriLOSEC] 40 mg PO DAILY 10/17/15 [History] Saliva Stimulant [Biotene Moisturizing Rinse] 5 spray PO BID 10/17/15 [History] Capsaicin 0.025% [Trixaicin] 1 appl TP DAILY PRN 05/24/16 [History] Pyridoxine HCl [Vitamin B-6] 100 mg PO DAILY 05/24/16 [History] Gabapentin [Neurontin] 300 mg PO TID 11/17/16 [History] Amlodipine [Norvasc] 5 mg PO DAILY #30 tablet 11/27/16 [Rx] Sertraline [Zoloft] 50 mg PO QAM #30 tablet 11/30/16 [Rx] Albuterol Sulfate [Proair Hfa] 1 puff IH Q6H PRN 12/20/16 [History] Amino Acids/Protein Hydrolys [Pro-Stat Awc Liquid Packet] 30 ml PO QAM 12/20/16 [History] Aspirin Enteric Coated [Aspirin EC] 81 mg PO DAILY 12/20/16 [History] Atorvastatin [Lipitor] 40 mg PO HS 12/20/16 [History] Benzocaine/Menthol [Cepacol Sore Throat Lozenge] 1 lozenge PO Q6H PRN 12/20/16 [ History] Calcium Carbonate [Calcium] 1,000 mg PO BID 12/20/16 [History] Ferrous Gluconate 324 mg PO BID 12/20/16 [History] Furosemide [Lasix] 80 mg PO QAM 12/20/16 [History] Insulin LISPRO [HumaLOG] 2 - 12 units SQ ACHS 12/20/16 [History] Lisinopril 2.5 mg PO BID 12/20/16 [History] Tamsulosin [Flomax] 0.4 mg PO DAILY 12/20/16 [History] U-Lactin 1 appl TP BID 12/20/16 [History] Carvedilol [Coreg] 3.125 mg PO BIDWM tablet 12/27/16 [Rx] HydrALAZINE 10 mg IVP Q6HR PRN #0 vial 12/27/16 [Rx] OxyCODONE Immed Rel [Roxicodone 5 MG] 5 mg PO Q4H PRN #18 tablet 12/27/16 [Rx] Phenazopyridine [Pyridium] 200 mg PO TID tablet 12/27/16 [Rx] Cefepime HCl/Dextrose, Iso-Osm [Cefepime 1 gm Injection] 1 gm IV Q12H 12/30/16 [ History] Allergies IVP dye Allergy (Uncoded 10/17/15 06:47) Vomiting All Systems: A 10-system review of systems was performed and is negative for pertinent findings except as documented above in the HPI. Physical Examination Vital Signs: Vital Signs, Last 4 Hours Temp Pulse Resp BP Pulse Ox 01/06/17 12:23 86 18 72/39 99 01/06/17 11:53 84 18 61/43 99 01/06/17 11:38 69 15 63/34 99 01/06/17 11:23 81 16 110/90 99 01/06/17 11:10 17 110/72 100 01/06/17 11:08 98.2 F 78 15 109/97 94 01/06/17 09:33 98.2 F 84 16 110/72 92 Ventilator Settings Ventilator Settings: Ventilator Settings, Last 8 Hours Ventilator Mode A/C Ventilator Mode A/C Ventilator Mode A/C Ventilator Mode A/C Ventilator Mode A/C Ventilator Mode A/C Ventilator Tidal Volume 550 Setting Ventilator Tidal Volume 550 Setting Ventilator Tidal Volume 550 Setting Ventilator Tidal Volume 550 Setting Ventilator Tidal Volume 550 Setting Ventilator Tidal Volume 550 Setting Ventilator Tidal Volume 550 Setting Ventilator Respiratory Rate 12 Setting Ventilator Respiratory Rate 12 Setting Ventilator Respiratory Rate 12 Setting Ventilator Respiratory Rate 12 Setting Ventilator Respiratory Rate 12 Setting Ventilator Respiratory Rate 12 Setting Ventilator Respiratory Rate 12 Setting Actual Respiratory Rate 18 Actual Respiratory Rate 18 Actual Respiratory Rate 15 Actual Respiratory Rate 16 Actual Respiratory Rate 17 Actual Respiratory Rate 18 Actual Respiratory Rate 15 Positive End Expiratory 5 Pressure Positive End Expiratory 5 Pressure Positive End Expiratory 5 Pressure Positive End Expiratory 5 Pressure Positive End Expiratory 5 Pressure Positive End Expiratory 5 Pressure Positive End Expiratory 5 Pressure Peak Inspiratory Airway 23 Pressure Peak Inspiratory Airway 23 Pressure Peak Inspiratory Airway 23 Pressure Peak Inspiratory Airway 23 Pressure Peak Inspiratory Airway 21 Pressure Peak Inspiratory Airway 23 Pressure Peak Inspiratory Airway 22 Pressure Results - Laboratory Findings CBC and BMP: 01/06/17 03:03 01/06/17 03:03 ABG ABG pH 7.27 pH Units (7.32-7.45) L 01/06/17 03:55 ABG pCO2 69 mmHg (35-45) H 01/06/17 03:55 ABG pO2 165 mmHg (85-104) H 01/06/17 03:55 ABG O2 Saturation 99 % (95-98) H 01/06/17 03:55 PT/INR, D-dimer PT 12.4 Seconds (9.4-12.1) H 12/30/16 07:36 Abnormal lab findings: Abnormal lab results WBC 18.3 K/mcL (4.3-11.1) H 01/06/17 03:03 RBC 2.83 M/mcL (4.19-5.50) L 01/06/17 03:03 Hgb 7.4 g/dL (12.9-16.9) L 01/06/17 03:03 Hct 24.6 % (37.5-50.1) L 01/06/17 03:03 MCH 26.1 pg (28.0-33.3) L 01/06/17 03:03 MCHC 30.1 g/dL (31.6-35.5) L 01/06/17 03:03 RDW 15.2 % (11.5-14.5) H 01/06/17 03:03 Neutrophils # 15.6 K/mcL (1.6-8.9) H 01/06/17 03:03 Monocytes # 1.7 K/mcL (0.0-1.3) H 01/06/17 03:03 Nucleated RBCs/100 WBC 0.1 /100 WBC (0) H 01/06/17 03:03 PT 12.4 Seconds (9.4-12.1) H 12/30/16 07:36 ABG pH 7.27 pH Units (7.32-7.45) L 01/06/17 03:55 ABG pCO2 69 mmHg (35-45) H 01/06/17 03:55 ABG pO2 165 mmHg (85-104) H 01/06/17 03:55 ABG HCO3 31.7 mEQ/L (21-27) H 01/06/17 03:55 ABG Total CO2 33.8 mEq/L (20-26) H 01/06/17 03:55 ABG O2 Saturation 99 % (95-98) H 01/06/17 03:55 ABG Base Excess 4.0 mEq/L (-2.0 to 3.0) H 01/06/17 03:55 Potassium 6.0 mEq/L (3.5-4.5) H 01/06/17 03:03 BUN 54 mg/dL (8-26) H 01/06/17 03:03 Creatinine 4.26 mg/dL (0.72-1.25) H 01/06/17 03:03 Est GFR ( Amer) 17 (> 60) L 01/06/17 03:03 Est GFR (Non-Af Amer) 14 (> 60) L 01/06/17 03:03 Glucose 133 mg/dL (70-99) H 01/06/17 03:03 POC Glucose 184 (58-89) H 01/06/17 11:19 Calculated Osmolality 303 (280-300) H 01/06/17 03:03 Alkaline Phosphatase 164 Units/L (38-126) H 01/05/17 13:55 Troponin I 0.07 ng/mL (0-0.03) H* 12/30/16 07:36 Albumin 3.0 g/dL (3.5-5.0) L 01/05/17 13:55 Albumin/Globulin Ratio 0.9 (1.1-2.2) L 01/05/17 13:55 Total Testosterone 19 ng/dL (221-716) L 01/01/17 19:38 Ur Specimen Adequacy See below A 12/30/16 08:49 Urine Color Red (Yellow) A 12/30/16 08:49 Urine Clarity Cloudy (Clear) A 12/30/16 08:49 Ur Specific [place] 1.026 (1.010-1.025) H 12/30/16 08:49 Urine Protein >=1000 mg/dL (Neg-Trace) H 12/30/16 08:49 Urine Glucose (UA) 100 mg/dL (Normal) H 12/30/16 08:49 Urine Ketones Trace mg/dL (Negative) H 12/30/16 08:49 Urine Blood Large (Negative) H 12/30/16 08:49 Urine Nitrite Positive (Negative) A 12/30/16 08:49 Urine Bilirubin Small (Negative) H 12/30/16 08:49 Ur Leukocyte Esterase Small (Negative) H 12/30/16 08:49 Ur Culture Indicated? YES (NO) A 12/30/16 08:49 - Clinical Findings Intake & Output: Intake & Output 01/05/17 01/06/17 01/06/17 23:59 07:59 15:59 Intake Total 0 / 0 350 / 350 Output Total 1700 / 1700 500 / 500 300 / 300 Balance -1700 / -1700 -500 / -500 50 / 50 Consult Discharge Plan - Plan [facility]errals: [facility] [Primary Care Provider] - - Attending Attestation I examined this patient and my medical decision-making was reviewed with the MIDDLE SCHOOL COMBINATION TEACHER/PA/Advanced Practice Nurse/Resident Physician. I agree with the documented findings, disposition and treatment plan as described except to the extent set forth below. I was called by Dr. Bunn about this patient that will need surgery by urologist and he has been on BiPAP. Then I evaluated patient before and after surgery and discussed with anesthesiologist and the concern is about his pulmonary status. I have reviewed labs and images with the resident and patient is known to our service from previous recent hospitalization and after surgery discussed with Dr. Ledezma urologist and patient has radiation cystitis and his urine is clear after surgery. Patient lethargic, but respond to painful stimulation. Patient is hypotensive after sugery with MAP in the 30s to 40s with partial response to fluid bolus and I feel he will benefit from PRBC, otherwise a low dose Dopamine might be helpful. Patient will remain on the vent , since he still unstable with hypotension and changed TV to 550, will obtain ABG to see if vent setting need to be adjusted. Plan of care discussed with primary team and I'm hoping we can extubate him tomorrow and thanks for the consult. Poor prognosis. Critical care performed: Time is exclusive of separately billable procedures. Time includes: direct patient care, patient reassessment, coordination of patient care, interpretation of data (laboratory data, radiology data, and respiratory data), review of patient's medical records, medical consultation and documentation of patient care. Critical care time: 35 minutes <Conrado Jane - Last Filed: 01/06/17 15:01> Date of Encounter: 01/06/17 Time of Encounter: 11:25 Assessment and Plan (1) Mai hematuria Current Visit: Yes Status: Acute Paitent was taken to the OR today for cystoscopy, clot evacuation, fulguration and right ureteral stent placement, after the procedure pt was transferred to ICU, still intubated and on mechanical ventilation, BP is low with MAP around 40 to 50, will give him fluid bolus, another 1 unit of PRBC, keep him intubated for tonight, recheck ABG, good tidal vol currently, in the AM we will reassess him and hopefully be able to extubate him in AM, will con't to closely monitor him in the ICU. (2) Acute worsening of stage 3 chronic kidney disease Current Visit: Yes Status: Acute Likely post-renal, CT abd showed new hyperdensity in the urinary bladder, consistent with moderate amount of blood clot, therefore he was taken to the OR today for cystoscopy, clot evacuation, fulguration and right ureteral stent placement, con't to avoid nephrotoxic agent, monitor urine output, good urine ouput yesterday, will recheck BMP later today. (3) Hyperkalemia Current Visit: Yes Status: Acute Likely 2/2 acute on CKD III with post-renal etiology, he was taken to the OR today for cystoscopy, clot evacuation, fulguration and right ureteral stent placement, good urine output yesterday, hyperkalemia improved, will recheck level now. (4) Prostate cancer Current Visit: Yes Status: Acute Hx of metastatic high-grade, castration resistant prostate cancer and is noted to have poor prognosis. Patient has also been seen by palliative care team and oncology during this hospitalization and he opted to pursue outpatient chemotherapy and palliative radiation. (5) COPD (chronic obstructive pulmonary disease) Current Visit: Yes Status: Chronic Not in exacerbation, will con't oxygen support with mechanical ventilation tonight with bronchodilator treatment. Qualifiers: COPD type: unspecified COPD Qualified Code(s): J44.9 - Chronic obstructive pulmonary disease, unspecified (6) DMII (diabetes mellitus, type 2) Current Visit: Yes Status: Chronic Glucose stable, con't SSI with accucheck q6hrs while NPO. Qualifiers: Diabetes mellitus complication status: with unspecified complications Diabetes mellitus longterm insulin use: with longterm use Qualified Code(s) : E11.8 - Type 2 diabetes mellitus with unspecified complications; Z79.4 - residential (current) use of insulin (7) Leukocytosis (leucocytosis) Current Visit: No Status: Resolved Sudden increase on 01/05, improved from 19.7 to 18.3, unclear source of etiology, infectious vs reactive, urine culture came back negative, chest x-ray showed bibasilar opacities, left patchy opacity increased in the interval, atelectasis vs pneumonia, will obtain blood/sputum cultures today, will con't to monitor it for now. Qualifiers: Leukocytosis type: unspecified Qualified Code(s): D72.829 - Elevated white blood cell count, unspecified (8) Hypotension Current Visit: Yes Status: Acute His MAP improved to 70 after fluid bolus and PRBC infusion, will con't to closely monitor his VS in ICU. Qualifiers: Qualified Code(s): I95.9 - Hypotension, unspecified (9) DVT prophylaxis Current Visit: No Status: Acute IPC. History of Present Illness Consult date: 01/06/17 Requesting physician: Stella Bunn Reason for consult: other (s/p cystoscopy, clot evacuation, fulguration, right ureteral stent placement, remained intubated) Chief complaint: s/p cystoscopy, clot evacuation, fulguration, right ureteral stent placemen History of present illness: This is a 71 yo male with a history of metastatic prostate cancer, insulin- dependent diabetes type 2, coronary artery disease, chronic kidney disease stage III, COPD, obstructive sleep apnea with CPAP dependent, and atrial fibrillation on chronic anticoagulation therapy with Eliquis, who was recently hospitalized and was in ICU for acute on chronic respiratory failure and symptomatic anemia, discharged on 12/27/2016, he came back on 12/30/2016 for significant mai hematuria again, urology was consulted, he was started on 3- way bladder irrigation in the ER. CT abd showed new hyperdensity in the urinary bladder, consistent with moderate amount of blood clot, therefore he was taken to the OR today for cystoscopy, clot evacuation, fulguration and right ureteral stent placement, after the procedure pt was transferred to ICU with remained intubated on mechanical ventilation and close monitoring of his clinical status. Past Med Surg Social Fam HX - Past Medical History Medical history: arthritis, atrial fibrillation, cancer, COPD, coronary artery disease, CVA, diabetes, GERD, hyperlipidemia, hypertension, renal disease, valvular heart disease Psychiatric history: anxiety, depression - Past Surgical History Surgical History: coronary bypass (CABG), heart valve replacement, other - Social History Smoking Status: Never smoker Smokeless Tobacco Status: No Alcohol use: none Drug use: unknown - Family History Father History Unknown: Yes Living Status: Hx Family Cardiac Disorders: Yes ROS unobtainable: due to endotracheal tube All Systems: A 10-system review of systems was performed and is negative for pertinent findings except as documented above in the HPI. 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5) L 01/06/17 03:03 RDW 15.2 % (11.5-14.5) H 01/06/17 03:03 Neutrophils # 15.6 K/mcL (1.6-8.9) H 01/06/17 03:03 Monocytes # 1.7 K/mcL (0.0-1.3) H 01/06/17 03:03 Nucleated RBCs/100 WBC 0.1 /100 WBC (0) H 01/06/17 03:03 PT 12.4 Seconds (9.4-12.1) H 12/30/16 07:36 ABG pH 7.27 pH Units (7.32-7.45) L 01/06/17 03:55 ABG pCO2 69 mmHg (35-45) H 01/06/17 03:55 ABG pO2 165 mmHg (85-104) H 01/06/17 03:55 ABG HCO3 31.7 mEQ/L (21-27) H 01/06/17 03:55 ABG Total CO2 33.8 mEq/L (20-26) H 01/06/17 03:55 ABG O2 Saturation 99 % (95-98) H 01/06/17 03:55 ABG Base Excess 4.0 mEq/L (-2.0 to 3.0) H 01/06/17 03:55 Potassium 6.0 mEq/L (3.5-4.5) H 01/06/17 03:03 BUN 54 mg/dL (8-26) H 01/06/17 03:03 Creatinine 4.26 mg/dL (0.72-1.25) H 01/06/17 03:03 Est GFR ( Amer) 17 (> 60) L 01/06/17 03:03 Est GFR (Non-Af Amer) 14 (> 60) L 01/06/17 03:03 Glucose 133 mg/dL (70-99) H 01/06/17 03:03 POC Glucose 184 (58-89) H 01/06/17 11:19 Calculated Osmolality 303 (280-300) H 01/06/17 03:03 Alkaline Phosphatase 164 Units/L (38-126) H 01/05/17 13:55 Troponin I 0.07 ng/mL (0-0.03) H* 12/30/16 07:36 Albumin 3.0 g/dL (3.5-5.0) L 01/05/17 13:55 Albumin/Globulin Ratio 0.9 (1.1-2.2) L 01/05/17 13:55 Total Testosterone 19 ng/dL (221-716) L 01/01/17 19:38 Ur Specimen Adequacy See below A 12/30/16 08:49 Urine Color Red (Yellow) A 12/30/16 08:49 Urine Clarity Cloudy (Clear) A 12/30/16 08:49 Ur Specific [place] 1.026 (1.010-1.025) H 12/30/16 08:49 Urine Protein >=1000 mg/dL (Neg-Trace) H 12/30/16 08:49 Urine Glucose (UA) 100 mg/dL (Normal) H 12/30/16 08:49 Urine Ketones Trace mg/dL (Negative) H 12/30/16 08:49 Urine Blood Large (Negative) H 12/30/16 08:49 Urine Nitrite Positive (Negative) A 12/30/16 08:49 Urine Bilirubin Small (Negative) H 12/30/16 08:49 Ur Leukocyte Esterase Small (Negative) H 12/30/16 08:49 Ur Culture Indicated? YES (NO) A 12/30/16 08:49 - Clinical Findings Intake & Output: Intake & Output 01/05/17 01/06/17 01/06/17 23:59 07:59 15:59 Intake Total 0 / 0 350 / 350 Output Total 1700 / 1700 500 / 500 Balance -1700 / -1700 -500 / -500 350 / 350
[2017-01-06] MEDS ORDERED: *HR* LORazepam 0.5 MG TABLET PO PRN (11:38)
[2017-01-06] MEDS ORDERED: Ipratropium/Albuterol Neb 3 ML IH PRN (11:38)
[2017-01-06] MEDS ORDERED: 0.9 % Sodium Chloride 1,000 ML IR PRN (11:38)
[2017-01-06] MEDS ORDERED: *HR* Belladonna Alkaloids/Opium 60 MG RECTAL SUPPOSITORY RC PRN (11:38)
[2017-01-06] MEDS ORDERED: Ondansetron 4 MG/2 ML VIAL IVP PRN (11:38)
[2017-01-06] MEDS ORDERED: 0.9 % Sodium Chloride 1,000 ML ONE (11:52)
[2017-01-06] MEDS ORDERED: 0.9 % Sodium Chloride 1,000 ML IVC ONE (11:55)
--- NOTE | 2017-01-06 11:56 | Internal Med Progress Note ---
Date of Encounter: 01/06/17 Time of Encounter: 09:30 - Assessment and plan (1) GEORGE (acute kidney injury) Current Visit: Yes Status: Acute Assessment and plan: noted to have worsening oliguric renal failure with hyperkalemia and hypoxic respiratory failure, likely due to obstructive uropathy. Continue supportive care, correct serum potassium and supplemental O2; currently requiring BiPAP support; patient has been evaluated by ship's electronic warfare officer and been accepted for ICU transfer after cystoscopy; patient may require continued mechanical ventilation post-procedure; (2) Acute encephalopathy Current Visit: Yes Status: Acute Assessment and plan: worsening due to hypoxia, renal failure, hyperkalemia- metabolic encephalopathy; (3) Prostate cancer metastatic to intrapelvic lymph node Current Visit: Yes Status: Chronic Assessment and plan: metastatic high-grade, castration resistant prostate cancer. poor prognosis. Patient has also been seen by palliative care team and oncology and he opted to pursue outpatient chemotherapy and palliative radiation. (4) Gross hematuria Current Visit: Yes Status: Acute Assessment and plan: patient continues to have gross hematuria with significant clots; has been on CBI for the last 2 days; Urology has been on board, plan for cystoscopy today to identify source of bleeding; continue to monitor H&H and transfuse to keep Hb >8; high risk for complications; (5) History of atrial fibrillation Current Visit: Yes Status: Chronic Assessment and plan: Patient was recently admitted for possible anemia and GI bleed, at which time and coagulation has been discontinued for atrial fibrillation. Discontinued baby aspirin now. Continue rate control medications. (6) COPD (chronic obstructive pulmonary disease) Current Visit: Yes Status: Chronic Qualifiers: COPD type: unspecified COPD Qualified Code(s): J44.9 - Chronic obstructive pulmonary disease, unspecified (7) UTI (urinary tract infection) Current Visit: Yes Status: Ruled-out Qualifiers: Urinary tract infection type: site unspecified Hematuria presence: with hematuria Qualified Code(s): N39.0 - Urinary tract infection, site not specified; R31.9 - Hematuria, unspecified (8) DMII (diabetes mellitus, type 2) Current Visit: Yes Status: Chronic Qualifiers: Diabetes mellitus complication status: with unspecified complications Diabetes mellitus intermediate teacher insulin use: with snf use Qualified Code(s) : E11.8 - Type 2 diabetes mellitus with unspecified complications; Z79.4 - superintendent terminal (current) use of insulin (9) Depression Current Visit: Yes Status: Chronic Qualifiers: Depression Type: unspecified Qualified Code(s): F32.9 - Major depressive disorder, single episode, unspecified - Subjective Interval history: Clinical condition deteriorating. Patient is very lethargic, barely responding to deep painful stimulus. Currently on BiPAP, noncommunicative. History cannot be obtained. Gross Hematuria has cleared since yesterday. - Constitutional Vitals: Temp Pulse Resp BP Pulse Ox 98.2 F 84 16 110/72 92 01/06/17 09:33 01/06/17 09:33 01/06/17 09:33 01/06/17 09:33 01/06/17 09:33 General appearance: Present: A&O X 0 (Lethargic and somnolent) - Respiratory Respiratory exam: Present: CTAB (Anterolaterally). Absent: accessory muscle use , rales, rhonchi, wheezes - Cardiovascular Cardiovascular exam: Present: RRR, +S1, +S2. Absent: diastolic murmur, gallop, rubs, systolic murmur - GI/Abdominal GI/Abdominal exam: Present: normal bowel sounds, soft, no peritoneal signs. Absent: distended, tenderness - Extremities Exam Extremities exam: Present: warm, radial pulses palpable and symetrical. Absent : calf tenderness, cyanotic, pedal edema - Neurological Exam Neurological exam: Present: altered (Further exam cannot be completed due to mental status). Absent: pronater drift, facial droop, speech deficit - Skin Skin exam: Present: dry, intact Internal Medicine: Result - Labs CBC & Chem 7: 01/10/17 05:07 01/10/17 05:07 Labs: Short CBC 01/05/17 01/05/17 01/06/17 Range/Units 11:56 18:30 03:03 WBC 15.5 H D 19.7 H 18.3 H (4.3-11.1) K/mcL Hgb 7.9 L 7.9 L 7.4 L (12.9-16.9) g/dL Hct 25.3 L 25.3 L 24.6 L (37.5-50.1) % Plt Count 219 220 220 (140-400) K/mcL Neutrophils # 13.5 H 17.7 H 15.6 H (1.6-8.9) K/mcL BMP 01/05/17 01/05/17 01/05/17 11:56 13:55 18:30 Sodium 137 136 134 L Potassium 6.7 H* D 6.5 H* 6.4 H Chloride 104 102 101 Carbon Dioxide 19 23 21 BUN 50 H D 52 H 52 H Creatinine 3.09 H D 3.36 H 3.53 H Glucose 143 H 145 H 157 H Calcium 9.6 9.6 9.7 01/06/17 03:03 Sodium 138 Potassium 6.0 H Chloride 100 Carbon Dioxide 27 BUN 54 H Creatinine 4.26 H Glucose 133 H Calcium 9.6 Liver Function 01/05/17 Range/Units 13:55 Total Bilirubin 0.4 (0.2-1.2) mg/dL AST 17 (5-34) Units/L ALT 10 (0-55) Units/L Alkaline Phosphatase 164 H (38-126) Units/L Albumin 3.0 L (3.5-5.0) g/dL - ABG Interpretation ABG results: ABG ABG pH 7.27 pH Units (7.32-7.45) L 01/06/17 03:55 ABG pCO2 69 mmHg (35-45) H 01/06/17 03:55 ABG pO2 165 mmHg (85-104) H 01/06/17 03:55 ABG O2 Saturation 99 % (95-98) H 01/06/17 03:55 PT/INR, D-dimer PT 12.4 Seconds (9.4-12.1) H 12/30/16 07:36 - Impressions Impressions Chest X-Ray 01/06/17 03:32 IMPRESSION: Bibasilar opacities. Left patchy opacity is increased in the interval, atelectasis versus pneumonia. Chronic elevation of the right hemidiaphragms. D/ / Vishnu Schmitt MD / Vishnu Schmitt MD Interpreting Provider: Vishnu Schmitt MD Fluoroscopy 01/06/17 10:25 IMPRESSION: Intraprocedural fluoroscopic spot images as above. See separate procedure report for more information. D/ / 01/06/2017 11:05:11 Liz Mariscal MD / luciano Interpreting Provider: Liz Mariscal MD Abdomen/Pelvis CT 01/06/17 16:27 IMPRESSION: The Ramos catheter and left ureteral stent are normal positions. There is new hyperdensity in the urinary bladder, consist with a moderate amount of blood clot. The source of the hemorrhage is uncertain. Stable retroperitoneal and pelvic adenopathy. Stable pleural effusion and bibasilar atelectasis or pneumonia. Stable nodule in the right middle lobe. Stable osteosclerotic bone lesions, presumed metastases. D/ / Vishnu Schmitt MD / Vishnu Schmitt MD Interpreting Provider: Vishnu Schmitt MD - VTE Documentation of Mechanical Device: Intermittent pneumatic compression device Consult Discharge Plan - Plan Referrals: [facility] [Primary Care Provider] - Prescriptions: OxyCODONE Immed Rel [Roxicodone 5 MG] 5 mg PO Q6HR PRN #30 tablet PRN Reason: Pain LORazepam [Ativan] 0.5 mg PO TID PRN #20 tablet PRN Reason: Anxiety
[2017-01-06] MEDS ORDERED: Insulin LISPRO 300 UNITS/3 ML VIAL SQ SCH (12:00)
--- NOTE | 2017-01-06 12:14 | Anesthesia Evaluation Post Op ---
Date of Encounter: 01/06/17 Time of Encounter: 12:12 - Vital Signs Vital Signs: Vital Signs/O2 Sat/Glucose, Most Current Temp Pulse Resp BP Pulse Ox 01/06/17 11:53 84 18 61/43 99 01/06/17 11:38 69 15 63/34 99 01/06/17 11:23 81 16 110/90 99 01/06/17 11:10 17 110/72 100 01/06/17 11:08 98.2 F 78 15 109/97 94 01/06/17 09:33 98.2 F 84 16 110/72 92 - Lungs Lungs: Rhonchi - Airway Airway: Intubated - Cardiovascular Baseline Rhythm - Mental Status Mental Status: Baseline Status - Nausea Vomiting Nausea Vomiting: Not Present - Hydration Hydration: NPO Notes: 01/06/17 12:13 further management per IC team,
[2017-01-06] MEDS ORDERED: Dexmedetomidine HCl 400 MCG/100 ML MLS IVC ONE (12:20)
[2017-01-06] MEDS: Dexmedetomidine HCl 400 MCG/100 ML MLS IVC SCH ×2 (12:30→23:56)
[2017-01-06] MEDS ORDERED: 0.9 % Sodium Chloride 250 ML ONE (13:07)
[2017-01-06] MEDS: 0.9 % Sodium Chloride 250 ML ONE (13:33)
[2017-01-06 14:55] LABS: ABG Base Excess 3.8 mEq/L (-2.0 to 3.0); ABG HCO3 27.6 mEQ/L (21-27); ABG Oxygen Saturation 96 % (95-98); ABG PCO2 37 mmHg (35-45); ABG PH 7.48 pH Units (7.32-7.45); ABG PO2 77 mmHg (85-104); ABG TCO2 28.7 mEq/L (20-26)
[2017-01-06 14:56] LABS: Blood Gas FiO2 50 %
[2017-01-06] MEDS: Gabapentin 300 MG CAPSULE PO SCH ×2 (15:25→20:06)
[2017-01-06 16:52] LABS: Basophils % 0.1 %; Hematocrit 25.4 % (37.5-50.1); Hemoglobin 8.1 g/dL (12.9-16.9); Immature Granulocytes % 0.9 % (0-4); Lymphocytes # 0.5 K/mcL (0.6-4.6); Lymphocytes % 3.1 %; Mean Corpuscular HGB Conc 31.9 g/dL (31.6-35.5); Mean Corpuscular Volume 84.7 fL (83.0-100.0); Mean Platelet Volume 9.9 fL (9.4-12.4); Monocytes # 0.9 K/mcL (0.0-1.3); Monocytes % 4.9 %; Neutrophils # 15.6 K/mcL (1.6-8.9); Nucleated Red Blood Cells 0.2 /100 WBC (0); Platelet Count 171 K/mcL (140-400); Red Cell Distribution Width 14.6 % (11.5-14.5)
[2017-01-06 17:11] LABS: Calcium 8.6 mg/dL (8.6-10.8); Potassium 6.2 mEq/L (3.5-4.5)
[2017-01-06] MEDS: Pantoprazole 40 MG VIAL IVP SCH (18:08)
[2017-01-06] MEDS: Sennosides/Docusate Sodium TABLET PO SCH (20:06)
[2017-01-07 03:31] LABS: Basophils % 0.1 %; Eosinophils % 0.1 %; Hematocrit 23.6 % (37.5-50.1); Hemoglobin 7.8 g/dL (12.9-16.9); Immature Granulocytes % 1.1 % (0-4); Lymphocytes # 0.7 K/mcL (0.6-4.6); Lymphocytes % 4.6 %; Mean Corpuscular HGB Conc 33.1 g/dL (31.6-35.5); Mean Corpuscular Hemoglobin 27.7 pg (28.0-33.3); Mean Corpuscular Volume 83.7 fL (83.0-100.0); Mean Platelet Volume 10.6 fL (9.4-12.4); Monocytes # 1.2 K/mcL (0.0-1.3); Monocytes % 7.7 %; Neutrophils # 13.2 K/mcL (1.6-8.9); Nucleated Red Blood Cells 0.2 /100 WBC (0); Platelet Count 163 K/mcL (140-400); Red Blood Count 2.82 M/mcL (4.19-5.50); Red Cell Distribution Width 15.1 % (11.5-14.5); Segmented Neutrophils % 86.4 %
[2017-01-07 03:35] LABS: INR 1.3; Prothrombin Time 14.1 Seconds (9.4-12.1)
[2017-01-07 03:45] LABS: Albumin/Globulin Ratio 0.7 (1.1-2.2); Bilirubin,Total 0.4 mg/dL (0.2-1.2); Globulin 3.3 g/dL (2.4-3.5); Potassium 5.4 mEq/L (3.5-4.5); Total Protein 5.6 g/dL (6.0-8.3)
[2017-01-07 03:49] LABS: Albumin 2.3 g/dL (3.5-5.0)
[2017-01-07] MEDS: Insulin LISPRO 300 UNITS/3 ML VIAL SQ SCH ×3 (05:49→21:04)
--- NOTE | 2017-01-07 05:53 | Pulmonology Progress Note ---
<Leno Correiamarjorie M - Last Filed: 01/07/17 10:02> Date of Encounter: 01/07/17 Objective PUL Vital signs: Last Vital Signs Temp 97.9 F 01/07/17 08:00 Pulse 67 01/07/17 09:00 Resp 18 01/07/17 09:00 BP 113/73 01/07/17 09:00 Pulse Ox 100 01/07/17 07:51 Ventilator Settings Ventilator Settings: Ventilator Settings, Last 8 Hours Ventilator Mode CPAP Ventilator Mode CPAP Ventilator Mode CPAP Ventilator Mode CPAP Ventilator Mode CPAP Ventilator Mode A/C Ventilator Mode A/C Ventilator Mode A/C Ventilator Mode A/C Ventilator Mode A/C Ventilator Tidal Volume 550 Setting Ventilator Tidal Volume 550 Setting Ventilator Tidal Volume 550 Setting Ventilator Tidal Volume 550 Setting Ventilator Tidal Volume 550 Setting Ventilator Respiratory Rate 12 Setting Ventilator Respiratory Rate 12 Setting Ventilator Respiratory Rate 12 Setting Ventilator Respiratory Rate 12 Setting Ventilator Respiratory Rate 12 Setting Actual Respiratory Rate 17 Actual Respiratory Rate 15 Actual Respiratory Rate 12 Positive End Expiratory 5 Pressure Positive End Expiratory 5 Pressure Positive End Expiratory 5 Pressure Positive End Expiratory 5 Pressure Positive End Expiratory 5 Pressure Positive End Expiratory 5 Pressure Positive End Expiratory 5 Pressure Peak Inspiratory Airway 17 Pressure Peak Inspiratory Airway 15 Pressure Peak Inspiratory Airway 21 Pressure Results - Laboratory Findings CBC and BMP: 01/07/17 03:16 01/07/17 03:16 ABG ABG pH 7.48 pH Units (7.32-7.45) H 01/06/17 14:40 ABG pCO2 37 mmHg (35-45) 01/06/17 14:40 ABG pO2 77 mmHg (85-104) L 01/06/17 14:40 ABG O2 Saturation 96 % (95-98) 01/06/17 14:40 PT/INR, D-dimer PT 14.1 Seconds (9.4-12.1) H 01/07/17 03:16 Abnormal lab findings: Abnormal lab results WBC 15.3 K/mcL (4.3-11.1) H 01/07/17 03:16 RBC 2.82 M/mcL (4.19-5.50) L 01/07/17 03:16 Hgb 7.8 g/dL (12.9-16.9) L 01/07/17 03:16 Hct 23.6 % (37.5-50.1) L 01/07/17 03:16 MCH 27.7 pg (28.0-33.3) L 01/07/17 03:16 RDW 15.1 % (11.5-14.5) H 01/07/17 03:16 Neutrophils # 13.2 K/mcL (1.6-8.9) H 01/07/17 03:16 Nucleated RBCs/100 WBC 0.2 /100 WBC (0) H 01/07/17 03:16 PT 14.1 Seconds (9.4-12.1) H 01/07/17 03:16 ABG pH 7.48 pH Units (7.32-7.45) H 01/06/17 14:40 ABG pO2 77 mmHg (85-104) L 01/06/17 14:40 ABG HCO3 27.6 mEQ/L (21-27) H 01/06/17 14:40 ABG Total CO2 28.7 mEq/L (20-26) H 01/06/17 14:40 ABG Base Excess 3.8 mEq/L (-2.0 to 3.0) H 01/06/17 14:40 Potassium 5.4 mEq/L (3.5-4.5) H 01/07/17 03:16 BUN 54 mg/dL (8-26) H 01/07/17 03:16 Creatinine 4.28 mg/dL (0.72-1.25) H 01/07/17 03:16 Est GFR ( Amer) 17 (> 60) L 01/07/17 03:16 Est GFR (Non-Af Amer) 14 (> 60) L 01/07/17 03:16 Glucose 142 mg/dL (70-99) H 01/07/17 03:16 POC Glucose 156 (58-89) H 01/06/17 23:30 Calculated Osmolality 307 (280-300) H 01/07/17 03:16 Alkaline Phosphatase 143 Units/L (38-126) H 01/07/17 03:16 Troponin I 0.07 ng/mL (0-0.03) H* 12/30/16 07:36 Serum Total Protein 5.6 g/dL (6.0-8.3) L 01/07/17 03:16 Albumin 2.3 g/dL (3.5-5.0) L D 01/07/17 03:16 Albumin/Globulin Ratio 0.7 (1.1-2.2) L 01/07/17 03:16 Total Testosterone 19 ng/dL (221-716) L 01/01/17 19:38 Ur Specimen Adequacy See below A 12/30/16 08:49 Urine Color Red (Yellow) A 12/30/16 08:49 Urine Clarity Cloudy (Clear) A 12/30/16 08:49 Ur Specific Ira 1.026 (1.010-1.025) H 12/30/16 08:49 Urine Protein >=1000 mg/dL (Neg-Trace) H 12/30/16 08:49 Urine Glucose (UA) 100 mg/dL (Normal) H 12/30/16 08:49 Urine Ketones Trace mg/dL (Negative) H 12/30/16 08:49 Urine Blood Large (Negative) H 12/30/16 08:49 Urine Nitrite Positive (Negative) A 12/30/16 08:49 Urine Bilirubin Small (Negative) H 12/30/16 08:49 Ur Leukocyte Esterase Small (Negative) H 12/30/16 08:49 Ur Culture Indicated? YES (NO) A 12/30/16 08:49 - Clinical Findings Intake & Output: Intake & Output 01/06/17 01/07/17 01/07/17 23:59 07:59 15:59 Intake Total 440 / 440 29 / 29 Output Total 2100 / 2100 560 / 560 250 / 250 Balance -1660 / -1660 -531 / -531 -250 / -250 Weight 130.3 kg Consult Discharge Plan - Plan [facility]errals: [facility] [Primary Care Provider[facility] - - Attending Attestation I examined this patient and my medical decision-making was reviewed with the ELECTROSTATIC PAINT OPERATOR/PA/Advanced Practice Nurse/Resident Physician. I agree with the documented findings, disposition and treatment plan as described except to the extent set forth below. Patient seen and examined. Labs, radiology, chart personally reviewed. Agree with resident's history and physical, assessment, plan with following comments: LOBSTER MAN: Patient follows commands, Pulmonary: Acceptable oxygenation and ventilation. Patient was successfully extubated and will have BiPAP standby to use it when necessary and at night. Patient has obesity hypoventilation syndrome Cardiovascular: stable GI: Nutrition per dietary and GI prophylaxis per routine Heme: DVT prophylaxis mechanical due to hematuria Renal; urine out put and renal funtion reviewed. Urology follow-up Endorcine: blood glucose is monitored Lines: all lines checked and no evidence of infections Skin: skin care to prevent pressure ulcers per nursing routine care Patient is comfort care and at this time is stable to be transferred to the floor. <Conrado Jane - Last Filed: 01/07/17 12:37> Date of Encounter: 01/07/17 Time of Encounter: 05:53 Assessment and Plan (1) Marino hematuria Current Visit: Yes Status: Acute Paitent was taken to the OR yesterday for cystoscopy, clot evacuation, fulguration and right ureteral stent placement, after the procedure pt was transferred to ICU remained intubated and on mechanical ventilation. Patient was successfully extubated this morning, satting 95% on 3 liter of nasal cannula, patient is stable to be transferred out of ICU to telemetry floor today, signout has been given to the admitting physician. (2) Acute worsening of stage 3 chronic kidney disease Current Visit: Yes Status: Acute Patient's renal function improved compare to yesterday and he made good amounts of urine within the last 24 hours. Likely post-renal, CT abd showed new hyperdensity in the urinary bladder, consistent with moderate amount of blood clot, therefore he was taken to the OR yesterday for cystoscopy, clot evacuation , fulguration and right ureteral stent placement, con't to avoid nephrotoxic agent, monitor urine output, recheck renal function in the morning. (3) Hyperkalemia Current Visit: Yes Status: Acute Potassium level improved compare to yesterday, likely 2/2 acute on CKD III with post-renal etiology, recheck the level in the morning. (4) Prostate cancer Current Visit: Yes Status: Acute Hx of metastatic high-grade, castration resistant prostate cancer and is noted to have poor prognosis. Patient has also been seen by palliative care team and oncology during this hospitalization and he opted to pursue outpatient chemotherapy and palliative radiation. (5) COPD (chronic obstructive pulmonary disease) Current Visit: Yes Status: Chronic Not in exacerbation, will con't oxygen support with mechanical ventilation tonight with bronchodilator treatment. Qualifiers: COPD type: unspecified COPD Qualified Code(s): J44.9 - Chronic obstructive pulmonary disease, unspecified (6) DMII (diabetes mellitus, type 2) Current Visit: Yes Status: Chronic Glucose stable, con't SSI with accucheck before meals and at bedtime. Qualifiers: Diabetes mellitus complication status: with unspecified complications Diabetes mellitus prison insulin use: with tank terminal gauger use Qualified Code(s) : E11.8 - Type 2 diabetes mellitus with unspecified complications; Z79.4 - half-way (current) use of insulin (7) Leukocytosis (leucocytosis) Current Visit: No Status: Resolved Improved, unclear source of etiology, infectious vs reactive, urine culture came back negative, chest x-ray showed bibasilar opacities, left patchy opacity increased in the interval, atelectasis vs pneumonia, obtained blood/sputum cultures yesterday, will con't to monitor it for now. Qualifiers: Leukocytosis type: unspecified Qualified Code(s): D72.829 - Elevated white blood cell count, unspecified (8) DVT prophylaxis Current Visit: No Status: Acute IPC. Subjective Principal diagnosis: Hematuria Interval history: Patient seen and examined. No acute events overnight, patient was successfully extubated this morning, tolerating well with 3 L of nasal cannula satting 95%, his hematuria clearing out, patient will be transferred out of ICU to telemetry floor today. Objective PUL Vital signs: Last Vital Signs Temp 98.3 F 01/07/17 03:36 Pulse 69 01/07/17 04:07 Resp 15 01/07/17 04:07 BP 94/68 01/07/17 04:07 Pulse Ox 98 01/07/17 04:07 General appearance: no acute distress, alert Eyes: nonicteric, other (No right eye) ENT: oropharynx moist Neck: supple Effort: normal Auscultation: bilateral: clear Cardiovascular: regular rate and rhythm Gastrointestinal: normoactive bowel sounds Integumentary: normal Extremities: no cyanosis, no clubbing, pink and warm, pulses normal, edema ( Nonpitting mild pedal bilateral) Musculoskeletal: no deformities normal mental status, non-focal exam, pupils equal and round, CN II-XII normal mood appropriate, affect normal Ventilator Settings Ventilator Settings: Ventilator Settings, Last 8 Hours Ventilator Mode A/C Ventilator Mode A/C Ventilator Mode A/C Ventilator Mode A/C Ventilator Mode A/C Ventilator Mode A/C Ventilator Mode A/C Ventilator Mode A/C Ventilator Mode A/C Ventilator Mode A/C Ventilator Tidal Volume 550 Setting Ventilator Tidal Volume 550 Setting Ventilator Tidal Volume 550 Setting Ventilator Tidal Volume 550 Setting Ventilator Tidal Volume 550 Setting Ventilator Tidal Volume 550 Setting Ventilator Tidal Volume 550 Setting Ventilator Tidal Volume 550 Setting Ventilator Tidal Volume 550 Setting Ventilator Tidal Volume 550 Setting Ventilator Respiratory Rate 12 Setting Ventilator Respiratory Rate 12 Setting Ventilator Respiratory Rate 12 Setting Ventilator Respiratory Rate 12 Setting Ventilator Respiratory Rate 12 Setting Ventilator Respiratory Rate 12 Setting Ventilator Respiratory Rate 12 Setting Ventilator Respiratory Rate 12 Setting Ventilator Respiratory Rate 12 Setting Ventilator Respiratory Rate 12 Setting Actual Respiratory Rate 12 Actual Respiratory Rate 12 Actual Respiratory Rate 13 Positive End Expiratory 5 Pressure Positive End Expiratory 5 Pressure Positive End Expiratory 5 Pressure Positive End Expiratory 5 Pressure Positive End Expiratory 5 Pressure Positive End Expiratory 5 Pressure Positive End Expiratory 5 Pressure Positive End Expiratory 5 Pressure Positive End Expiratory 5 Pressure Positive End Expiratory 5 Pressure Peak Inspiratory Airway 21 Pressure Peak Inspiratory Airway 22 Pressure Peak Inspiratory Airway 22 Pressure Results - Laboratory Findings CBC and BMP: 01/07/17 03:16 01/07/17 03:16 ABG ABG pH 7.48 pH Units (7.32-7.45) H 01/06/17 14:40 ABG pCO2 37 mmHg (35-45) 01/06/17 14:40 ABG pO2 77 mmHg (85-104) L 01/06/17 14:40 ABG O2 Saturation 96 % (95-98) 01/06/17 14:40 PT/INR, D-dimer PT 14.1 Seconds (9.4-12.1) H 01/07/17 03:16 Abnormal lab findings: Abnormal lab results WBC 15.3 K/mcL (4.3-11.1) H 01/07/17 03:16 RBC 2.82 M/mcL (4.19-5.50) L 01/07/17 03:16 Hgb 7.8 g/dL (12.9-16.9) L 01/07/17 03:16 Hct 23.6 % (37.5-50.1) L 01/07/17 03:16 MCH 27.7 pg (28.0-33.3) L 01/07/17 03:16 RDW 15.1 % (11.5-14.5) H 01/07/17 03:16 Neutrophils # 13.2 K/mcL (1.6-8.9) H 01/07/17 03:16 Nucleated RBCs/100 WBC 0.2 /100 WBC (0) H 01/07/17 03:16 PT 14.1 Seconds (9.4-12.1) H 01/07/17 03:16 ABG pH 7.48 pH Units (7.32-7.45) H 01/06/17 14:40 ABG pO2 77 mmHg (85-104) L 01/06/17 14:40 ABG HCO3 27.6 mEQ/L (21-27) H 01/06/17 14:40 ABG Total CO2 28.7 mEq/L (20-26) H 01/06/17 14:40 ABG Base Excess 3.8 mEq/L (-2.0 to 3.0) H 01/06/17 14:40 Potassium 5.4 mEq/L (3.5-4.5) H 01/07/17 03:16 BUN 54 mg/dL (8-26) H 01/07/17 03:16 Creatinine 4.28 mg/dL (0.72-1.25) H 01/07/17 03:16 Est GFR ( Amer) 17 (> 60) L 01/07/17 03:16 Est GFR (Non-Af Amer) 14 (> 60) L 01/07/17 03:16 Glucose 142 mg/dL (70-99) H 01/07/17 03:16 POC Glucose 156 (58-89) H 01/06/17 23:30 Calculated Osmolality 307 (280-300) H 01/07/17 03:16 Alkaline Phosphatase 143 Units/L (38-126) H 01/07/17 03:16 Troponin I 0.07 ng/mL (0-0.03) H* 12/30/16 07:36 Serum Total Protein 5.6 g/dL (6.0-8.3) L 01/07/17 03:16 Albumin 2.3 g/dL (3.5-5.0) L D 01/07/17 03:16 Albumin/Globulin Ratio 0.7 (1.1-2.2) L 01/07/17 03:16 Total Testosterone 19 ng/dL (221-716) L 01/01/17 19:38 Ur Specimen Adequacy See below A 12/30/16 08:49 Urine Color Red (Yellow) A 12/30/16 08:49 Urine Clarity Cloudy (Clear) A 12/30/16 08:49 Ur Specific Ira 1.026 (1.010-1.025) H 12/30/16 08:49 Urine Protein >=1000 mg/dL (Neg-Trace) H 12/30/16 08:49 Urine Glucose (UA) 100 mg/dL (Normal) H 12/30/16 08:49 Urine Ketones Trace mg/dL (Negative) H 12/30/16 08:49 Urine Blood Large (Negative) H 12/30/16 08:49 Urine Nitrite Positive (Negative) A 12/30/16 08:49 Urine Bilirubin Small (Negative) H 12/30/16 08:49 Ur Leukocyte Esterase Small (Negative) H 12/30/16 08:49 Ur Culture Indicated? YES (NO) A 12/30/16 08:49 - Clinical Findings Intake & Output: Intake & Output 01/06/17 01/06/17 01/07/17 15:59 23:59 07:59 Intake Total 1350 / 1350 440 / 440 0 / 0 Output Total 350 / 350 2100 / 2100 560 / 560 Balance 1000 / 1000 -1660 / -1660 -560 / -560 Weight 130.3 kg - VTE Documentation of Mechanical Device: Intermittent pneumatic compression device
--- NOTE | 2017-01-07 07:35 | Urology Progress Note ---
Date of Encounter: 01/07/17 Time of Encounter: 07:30 - Assessment and Plan (1) Gross hematuria Current Visit: No Status: Acute Assessment and plan: 71 year old man status post cystoscopy, clot evacuation and right ureteral stent placement. POD #1. Intubated and sedated. Urine has been clear on moderate CBI overnight. 1. Will slow down CBI. 2. Continue to follow H&H. 3. Continue catheter for bleeding. 4. Appreciate IM and critical care support. (2) Prostate cancer metastatic to intrapelvic lymph node Current Visit: No Status: Chronic Assessment and plan: After surgery yesterday, I spoke at length with his niece to discuss his prognosis. He has [facility] with metastasis, acute renal failure, and hemorrhagic cystitis. Although his prostate cancer may not advance rapidly, given his current acute health issues, his prognosis is concerning. Progress Note Narrative: 71 year old man status post cystoscopy, clot evacuation and right ureteral stent placement. POD #1. Intubated and sedated. Urine has been clear on moderate CBI overnight. Objective Initial Vital Signs Temp Pulse Resp BP Pulse Ox 97.7 F 93 18 137/82 100 12/30/16 06:32 12/30/16 06:32 12/30/16 06:32 12/30/16 06:32 12/30/16 06:32 - General physical appearance Present: well developed, well nourished, no distress - Respiratory Absent: normal respiratory effort - Abdomen Present: soft - Genitourinary Present: normal penis with no external lesions Urine Appearance: Present: Clear (On slow to moderate CBI) - Labs 01/07/17 03:16 01/07/17 03:16 Diabetes panel 01/06/17 01/07/17 Range/Units 16:43 03:16 Sodium 137 140 (136-145) mEq/L Potassium 6.2 H 5.4 H (3.5-4.5) mEq/L Chloride 102 103 (98-109) mEq/L Carbon Dioxide 25 26 (19-29) mEq/L BUN 56 H 54 H (8-26) mg/dL Creatinine 4.50 H 4.28 H (0.72-1.25) mg/dL Glucose 168 H 142 H (70-99) mg/dL Calcium 8.6 9.0 (8.6-10.8) mg/dL AST 13 (5-34) Units/L ALT 6 (0-55) Units/L Alkaline Phosphatase 143 H (38-126) Units/L Albumin 2.3 L D (3.5-5.0) g/dL Calcium panel 01/06/17 01/07/17 Range/Units 16:43 03:16 Calcium 8.6 9.0 (8.6-10.8) mg/dL Albumin 2.3 L D (3.5-5.0) g/dL Pituitary panel 01/06/17 01/07/17 Range/Units 16:43 03:16 Sodium 137 140 (136-145) mEq/L Potassium 6.2 H 5.4 H (3.5-4.5) mEq/L Chloride 102 103 (98-109) mEq/L Carbon Dioxide 25 26 (19-29) mEq/L BUN 56 H 54 H (8-26) mg/dL Creatinine 4.50 H 4.28 H (0.72-1.25) mg/dL Glucose 168 H 142 H (70-99) mg/dL Calcium 8.6 9.0 (8.6-10.8) mg/dL Adrenal panel 01/06/17 01/07/17 Range/Units 16:43 03:16 Sodium 137 140 (136-145) mEq/L Potassium 6.2 H 5.4 H (3.5-4.5) mEq/L Chloride 102 103 (98-109) mEq/L Carbon Dioxide 25 26 (19-29) mEq/L BUN 56 H 54 H (8-26) mg/dL Creatinine 4.50 H 4.28 H (0.72-1.25) mg/dL Glucose 168 H 142 H (70-99) mg/dL Calcium 8.6 9.0 (8.6-10.8) mg/dL Total Bilirubin 0.4 (0.2-1.2) mg/dL AST 13 (5-34) Units/L ALT 6 (0-55) Units/L Alkaline Phosphatase 143 H (38-126) Units/L Albumin 2.3 L D (3.5-5.0) g/dL - VTE Documentation of Mechanical Device: Intermittent pneumatic compression device Consult Discharge Plan - Plan Referrals: [facility] [Primary Care Provider] -
[2017-01-07] MEDS: Gabapentin 300 MG CAPSULE PO SCH ×4 (08:06→21:01)
[2017-01-07] MEDS: Pantoprazole 40 MG VIAL IVP SCH (08:06)
[2017-01-07] MEDS: Sennosides/Docusate Sodium TABLET PO SCH ×3 (08:07→21:00)
[2017-01-07] MEDS: Saliva Stimulant 100ml BOTTLE PO SCH ×2 (08:08→21:01)
[2017-01-07] MEDS: Artificial Tears SOLN 15 ML BOTTLE OP SCH ×4 (08:08→21:02)
[2017-01-07] MEDS ORDERED: Aminoglycoside Consult 1 EACH MC ONE (08:30)
[2017-01-07] MEDS ORDERED: Ascorbic Acid 500 MG TABLET PO SCH (09:00)
[2017-01-07] MEDS ORDERED: Thiamine (B-1) 100 MG TABLET PO SCH (09:00)
[2017-01-07 14:00] LABS: Hematocrit 25.1 % (37.5-50.1); Hemoglobin 8.2 g/dL (12.9-16.9)
[2017-01-07] MEDS ORDERED: Insulin LISPRO 300 UNITS/3 ML VIAL SQ SCH ×2 (16:30→21:00)
--- NOTE | 2017-01-07 17:06 | Internal Med Progress Note ---
Date of Encounter: 01/04/17 Time of Encounter: 13:30 - Assessment and plan (1) Prostate cancer metastatic to intrapelvic lymph node Current Visit: Yes Status: Chronic Assessment and plan: This is a late entry progress note for 01/04/17; Patient has been admitted with hematuria secondary to metastatic high-grade, castration resistant prostate cancer and is noted to have poor prognosis. Patient has also been seen by palliative care team and oncology and he opted to pursue outpatient chemotherapy and palliative radiation. Radiation oncology evaluation appreciated, patient is scheduled for palliative radiation in the hopes of stopping the bleed, on 01/05/17. (2) Gross hematuria Current Visit: Yes Status: Acute Assessment and plan: Related to underlying prostate cancer. Hematuria initially improved, however continues bladder irrigation has been resumed since yesterday due to persistent cross hematuria and clot retention. Noted to have a drop in hemoglobin to 7.4 today, we will transfuse 1 unit PRBC and discuss with urology regarding possible cystoscopy to determine source of bleeding. High risk for complications. (3) History of atrial fibrillation Current Visit: Yes Status: Chronic Assessment and plan: Patient was recently admitted for possible anemia and GI bleed, at which time and coagulation has been discontinued for atrial fibrillation. Discontinued baby aspirin now. Continue rate control medications. (4) COPD (chronic obstructive pulmonary disease) Current Visit: Yes Status: Chronic Assessment and plan: Currently not in acute exacerbation. Continue when necessary bronchodilators and supplemental oxygen. Qualifiers: COPD type: unspecified COPD Qualified Code(s): J44.9 - Chronic obstructive pulmonary disease, unspecified (5) Acute encephalopathy Current Visit: Yes Status: Acute Assessment and plan: Patient noted to have delirium with waxing and waning mental status. This is probably his new baseline due to his multiple medical comorbidities. High risk for complications. (6) UTI (urinary tract infection) Current Visit: Yes Status: Ruled-out Qualifiers: Urinary tract infection type: site unspecified Hematuria presence: with hematuria Qualified Code(s): N39.0 - Urinary tract infection, site not specified; R31.9 - Hematuria, unspecified (7) DMII (diabetes mellitus, type 2) Current Visit: Yes Status: Chronic Assessment and plan: Continue Accu-Chek blood glucose monitoring with sliding scale insulin. Qualifiers: Diabetes mellitus complication status: with unspecified complications Diabetes mellitus assisted insulin use: with exterminator termite use Qualified Code(s) : E11.8 - Type 2 diabetes mellitus with unspecified complications; Z79.4 - vermin exterminator (current) use of insulin (8) Depression Current Visit: Yes Status: Chronic Qualifiers: Depression Type: unspecified Qualified Code(s): F32.9 - Major depressive disorder, single episode, unspecified - Subjective Interval history: Patient continues to be somewhat lethargic, able to respond to his name but cannot provide appropriate history. Does not report abdominal pain, nausea or vomiting. Continues to have some hematuria on continuous bladder irrigation. - Constitutional Vitals: Temp Pulse Resp BP Pulse Ox 97.9 F 89 20 103/82 96 01/07/17 08:00 01/07/17 16:00 01/07/17 16:00 01/07/17 16:00 01/07/17 16:00 General appearance: Present: A&O X 1 - Respiratory Respiratory exam: Present: CTAB. Absent: accessory muscle use, rales, rhonchi, wheezes - Cardiovascular Cardiovascular exam: Present: RRR, +S1, +S2. Absent: diastolic murmur, gallop, rubs, systolic murmur - GI/Abdominal GI/Abdominal exam: Present: normal bowel sounds, soft, no peritoneal signs. Absent: distended, tenderness - Extremities Exam Extremities exam: Present: pedal edema (Trace pedal edema bilaterally), warm, radial pulses palpable and symetrical. Absent: calf tenderness, cyanotic Internal Medicine: Result - Labs CBC & Chem 7: 01/07/17 13:53 01/07/17 03:16 Labs: Short CBC 01/07/17 01/07/17 Range/Units 03:16 13:53 WBC 15.3 H (4.3-11.1) K/mcL Hgb 7.8 L 8.2 L (12.9-16.9) g/dL Hct 23.6 L 25.1 L (37.5-50.1) % Plt Count 163 (140-400) K/mcL Neutrophils # 13.2 H (1.6-8.9) K/mcL BMP 01/06/17 01/07/17 16:43 03:16 Sodium 137 140 Potassium 6.2 H 5.4 H Chloride 102 103 Carbon Dioxide 25 26 BUN 56 H 54 H Creatinine 4.50 H 4.28 H Glucose 168 H 142 H Calcium 8.6 9.0 Liver Function 01/07/17 Range/Units 03:16 Total Bilirubin 0.4 (0.2-1.2) mg/dL AST 13 (5-34) Units/L ALT 6 (0-55) Units/L Alkaline Phosphatase 143 H (38-126) Units/L Albumin 2.3 L D (3.5-5.0) g/dL - ABG Interpretation ABG results: ABG ABG pH 7.48 pH Units (7.32-7.45) H 01/06/17 14:40 ABG pCO2 37 mmHg (35-45) 01/06/17 14:40 ABG pO2 77 mmHg (85-104) L 01/06/17 14:40 ABG O2 Saturation 96 % (95-98) 01/06/17 14:40 PT/INR, D-dimer PT 14.1 Seconds (9.4-12.1) H 01/07/17 03:16 - VTE Documentation of Mechanical Device: Intermittent pneumatic compression device Consult Discharge Plan - Plan Referrals: [facility] [Primary Care Provider] -
[2017-01-07] MEDS ORDERED: *HR* LORazepam 0.5 MG TABLET PO PRN (19:41)
[2017-01-07] MEDS ORDERED: 0.9 % Sodium Chloride 1,000 ML IR PRN (19:41)
[2017-01-07] MEDS ORDERED: Ipratropium/Albuterol Neb 3 ML IH PRN (19:41)
[2017-01-07] MEDS ORDERED: Ondansetron 4 MG/2 ML VIAL IVP PRN (19:41)
[2017-01-07 19:51] LABS: Hematocrit 25.7 % (37.5-50.1); Hemoglobin 8.2 g/dL (12.9-16.9)
[2017-01-07] MEDS: Ascorbic Acid 500 MG TABLET PO SCH (19:54)
[2017-01-07] MEDS: Thiamine (B-1) 100 MG TABLET PO SCH (19:54)
[2017-01-07] MEDS: Dexmedetomidine HCl 400 MCG/100 ML MLS IVC SCH (19:56)
[2017-01-07] MEDS: *HR* Belladonna Alkaloids/Opium 60 MG RECTAL SUPPOSITORY RC PRN (21:16)
[2017-01-08] MEDS ORDERED: *HR* Morphine 2 MG/ML SYRINGE IVP ONE (02:48)
[2017-01-08 04:05] LABS: Basophils % 0.1 %; Eosinophils # 0.2 K/mcL (0.0-0.6); Eosinophils % 1.5 %; Hematocrit 24.3 % (37.5-50.1); Hemoglobin 7.6 g/dL (12.9-16.9); Immature Granulocytes % 1.1 % (0-4); Lymphocytes # 1.1 K/mcL (0.6-4.6); Lymphocytes % 7.8 %; Mean Corpuscular HGB Conc 31.3 g/dL (31.6-35.5); Mean Corpuscular Hemoglobin 26.9 pg (28.0-33.3); Mean Corpuscular Volume 85.9 fL (83.0-100.0); Mean Platelet Volume 10.7 fL (9.4-12.4); Monocytes # 1.3 K/mcL (0.0-1.3); Monocytes % 9.7 %; Nucleated Red Blood Cells 0.1 /100 WBC (0); Platelet Count 190 K/mcL (140-400); Red Blood Count 2.83 M/mcL (4.19-5.50); Red Cell Distribution Width 15.4 % (11.5-14.5); Segmented Neutrophils % 79.8 %
[2017-01-08 04:15] LABS: Calcium 8.7 mg/dL (8.6-10.8); Potassium 4.8 mEq/L (3.5-4.5)
[2017-01-08] MEDS: Pantoprazole 40 MG VIAL IVP SCH (06:06)
--- NOTE | 2017-01-08 07:07 | Urology Progress Note ---
Date of Encounter: 01/08/17 Time of Encounter: 07:04 - Assessment and Plan (1) Gross hematuria Current Visit: No Status: Acute Assessment and plan: POD #2 s/p cystoscopy, clot evacuation, fulguration, right ureteral stent placement. 1. Continue slow cbi for now. Would like to see the urine be crystal clear prior to stopping the cbi. 2. Will follow along. (2) Prostate cancer metastatic to intrapelvic lymph node Current Visit: No Status: Chronic Progress Note Narrative: Extubated yesterday. CBI is stable with a slow drip. Objective Initial Vital Signs Temp Pulse Resp BP Pulse Ox 97.7 F 93 18 137/82 100 12/30/16 06:32 12/30/16 06:32 12/30/16 06:32 12/30/16 06:32 12/30/16 06:32 - General physical appearance Present: well developed, well nourished, no distress - Respiratory Present: normal respiratory effort - Abdomen Present: soft - Genitourinary Present: normal penis with no external lesions Urine Appearance: Present: Clear (clear to slightly pink on very slow cbi.) - Labs 01/08/17 03:51 01/08/17 03:51 Diabetes panel 01/08/17 Range/Units 03:51 Sodium 138 (136-145) mEq/L Potassium 4.8 H (3.5-4.5) mEq/L Chloride 101 (98-109) mEq/L Carbon Dioxide 26 (19-29) mEq/L BUN 68 H D (8-26) mg/dL Creatinine 3.29 H (0.72-1.25) mg/dL Glucose 146 H (70-99) mg/dL Calcium 8.7 (8.6-10.8) mg/dL Calcium panel 01/08/17 Range/Units 03:51 Calcium 8.7 (8.6-10.8) mg/dL Pituitary panel 01/08/17 Range/Units 03:51 Sodium 138 (136-145) mEq/L Potassium 4.8 H (3.5-4.5) mEq/L Chloride 101 (98-109) mEq/L Carbon Dioxide 26 (19-29) mEq/L BUN 68 H D (8-26) mg/dL Creatinine 3.29 H (0.72-1.25) mg/dL Glucose 146 H (70-99) mg/dL Calcium 8.7 (8.6-10.8) mg/dL Adrenal panel 01/08/17 Range/Units 03:51 Sodium 138 (136-145) mEq/L Potassium 4.8 H (3.5-4.5) mEq/L Chloride 101 (98-109) mEq/L Carbon Dioxide 26 (19-29) mEq/L BUN 68 H D (8-26) mg/dL Creatinine 3.29 H (0.72-1.25) mg/dL Glucose 146 H (70-99) mg/dL Calcium 8.7 (8.6-10.8) mg/dL - VTE Documentation of Mechanical Device: Intermittent pneumatic compression device Consult Discharge Plan - Plan [facility]errals: [facility] [Primary Care Provider] -
[2017-01-08 07:17] LABS: POC eGFR > 60 (> 60)
[2017-01-08] MEDS: Gabapentin 300 MG CAPSULE PO SCH ×2 (08:12→21:14)
[2017-01-08] MEDS: Sennosides/Docusate Sodium TABLET PO SCH ×2 (08:13→21:14)
[2017-01-08] MEDS: Ascorbic Acid 500 MG TABLET PO SCH (08:13)
[2017-01-08] MEDS: *HR* Belladonna Alkaloids/Opium 60 MG RECTAL SUPPOSITORY RC PRN (08:17)
[2017-01-08] MEDS: Insulin LISPRO 300 UNITS/3 ML VIAL SQ SCH ×4 (08:31→21:15)
[2017-01-08] MEDS: Artificial Tears SOLN 15 ML BOTTLE OP SCH ×4 (08:32→21:14)
[2017-01-08] MEDS: Thiamine (B-1) 100 MG TABLET PO SCH (08:32)
--- NOTE | 2017-01-08 10:38 | Palliative Progress Note ---
<Sajan Ocasio - Last Filed: 01/08/17 11:26> Date of Encounter: 01/08/17 Time of Encounter: 10:34 - Assessment and plan (1) Goals of care, counseling/discussion Current Visit: No Status: Acute Assessment and plan: DIRK STATUS DNR CCA. Conintued plan to return to [facility]. Pt would like to return home, however, this may not be feasable and the patient is agreeable to return to [place] for further rehabilitation and strengthening. (2) Prostate cancer metastatic to intrapelvic lymph node Current Visit: Yes Status: Chronic Assessment and plan: Pt would like to continue to pursue palliative chemotherapy and radiation therapy. Continue treatments per oncology and radiation oncology. (3) Gross hematuria Current Visit: Yes Status: Acute Assessment and plan: The patient underwent cystoscopy, clot evacuation, fulguration, and right ureteral stent placement on 01/06. Continue management per urology. - Time Spent With Patient Total time spent is greater than 50% in coordination of care (as documented) at patient's floor/unit and/or counseling patient: 25 - 35 minutes - Subjective Interval history: The patient underwent urology procedure to help control the bleeding and relieve obstructive uropathy. The patient is currently with clear sensorium. Discusses wanting to pursue palliative treatment options including chemo/ radiation. Pt has specific questions about the proposed chemotherapy shots that would happen every 3 months. From last consult until today - the patient went to the OR with urology. The patient wishes to pursue continued treatment and therapy understanding that it is palliative in nature. - Constitutional Vitals: Abnormal lab results WBC 13.7 K/mcL (4.3-11.1) H 01/08/17 03:51 RBC 2.83 M/mcL (4.19-5.50) L 01/08/17 03:51 Hgb 7.6 g/dL (12.9-16.9) L 01/08/17 03:51 Hct 24.3 % (37.5-50.1) L 01/08/17 03:51 MCH 26.9 pg (28.0-33.3) L 01/08/17 03:51 MCHC 31.3 g/dL (31.6-35.5) L 01/08/17 03:51 RDW 15.4 % (11.5-14.5) H 01/08/17 03:51 Neutrophils # 11.0 K/mcL (1.6-8.9) H 01/08/17 03:51 Nucleated RBCs/100 WBC 0.1 /100 WBC (0) H 01/08/17 03:51 PT 14.1 Seconds (9.4-12.1) H 01/07/17 03:16 ABG pH 7.48 pH Units (7.32-7.45) H 01/06/17 14:40 ABG pO2 77 mmHg (85-104) L 01/06/17 14:40 ABG HCO3 27.6 mEQ/L (21-27) H 01/06/17 14:40 ABG Total CO2 28.7 mEq/L (20-26) H 01/06/17 14:40 ABG Base Excess 3.8 mEq/L (-2.0 to 3.0) H 01/06/17 14:40 Potassium 4.8 mEq/L (3.5-4.5) H 01/08/17 03:51 BUN 68 mg/dL (8-26) H D 01/08/17 03:51 Creatinine 3.29 mg/dL (0.72-1.25) H 01/08/17 03:51 Est GFR ( Amer) 23 (> 60) L 01/08/17 03:51 Est GFR (Non-Af Amer) 19 (> 60) L 01/08/17 03:51 Glucose 146 mg/dL (70-99) H 01/08/17 03:51 POC Glucose 183 (58-89) H 01/07/17 19:57 Calculated Osmolality 308 (280-300) H 01/08/17 03:51 Alkaline Phosphatase 143 Units/L (38-126) H 01/07/17 03:16 Troponin I 0.07 ng/mL (0-0.03) H* 12/30/16 07:36 Serum Total Protein 5.6 g/dL (6.0-8.3) L 01/07/17 03:16 Albumin 2.3 g/dL (3.5-5.0) L D 01/07/17 03:16 Albumin/Globulin Ratio 0.7 (1.1-2.2) L 01/07/17 03:16 Total Testosterone 19 ng/dL (221-716) L 01/01/17 19:38 Ur Specimen Adequacy See below A 12/30/16 08:49 Urine Color Red (Yellow) A 12/30/16 08:49 Urine Clarity Cloudy (Clear) A 12/30/16 08:49 Ur Specific [place] 1.026 (1.010-1.025) H 12/30/16 08:49 Urine Protein >=1000 mg/dL (Neg-Trace) H 12/30/16 08:49 Urine Glucose (UA) 100 mg/dL (Normal) H 12/30/16 08:49 Urine Ketones Trace mg/dL (Negative) H 12/30/16 08:49 Urine Blood Large (Negative) H 12/30/16 08:49 Urine Nitrite Positive (Negative) A 12/30/16 08:49 Urine Bilirubin Small (Negative) H 12/30/16 08:49 Ur Leukocyte Esterase Small (Negative) H 12/30/16 08:49 Ur Culture Indicated? YES (NO) A 12/30/16 08:49 General appearance: Present: cooperative, no acute distress - Head Head exam: Present: atraumatic, normal inspection - Eye Eye exam: Absent: conjunctival injection, scleral icterus - Respiratory Respiratory exam: Absent: accessory muscle use, respiratory distress - Cardiovascular Cardiovascular exam: Present: RRR - GI/Abdominal GI/Abdominal exam: Present: soft. Absent: distended, firm, rigid, tenderness - Additional comments: Koo catheter in place. Continued bloody drainage in koo bag - Neurological Exam Neurological exam: Present: alert, oriented X3 - Psychiatric Psychiatric exam: Present: normal affect, normal mood - Skin Skin exam: Present: dry, intact, warm. Absent: abrasion Palliative Quality Palliative Quality: Screen for Code Status: Yes, Screen for Goals of Care: Yes, Screen for Pain: Yes, If Pain Regimen Started, Initiate Bowel Regimen: No (Will recommend), Screen for Nausea/Vomitting: Yes Code Status: 12/30/16 10:10 DNR [Resuscitation Status: Active] [RES] Routine Comment: ok with intubation for respiratory purposes only Resuscitation Status: DNR-Comfort Care-Arrest - Labs CBC & Chem 7: 01/08/17 03:51 01/08/17 03:51 Labs: Laboratory Results - last 24 hr 01/05/17 01/07/1701/07/17 19:02 05:35 11:02 WBC RBC Hgb Hct MCV MCH MCHC RDW Plt Count MPV Immature Gran % Seg Neutrophils % Lymphocytes % Monocytes % Eosinophils % Basophils % Neutrophils # Lymphocytes # Monocytes # Eosinophils # Basophils # Nucleated RBCs/100 WBC Sodium Potassium Chloride Carbon Dioxide BUN Creatinine POC Creatinine 0.90 POC Estimated GFR (eGFR) > 60 Est GFR ( Amer) Est GFR (Non-Af Amer) BUN/Creatinine Ratio Glucose POC Glucose 149 H 137 H Calculated Osmolality Calcium 01/07/17 01/07/17 01/07/17 13:53 18:41 19:46 WBC RBC Hgb 8.2 L 8.2 L Hct 25.1 L 25.7 L MCV MCH MCHC RDW Plt Count MPV Immature Gran % Seg Neutrophils % Lymphocytes % Monocytes % Eosinophils % Basophils % Neutrophils # Lymphocytes # Monocytes # Eosinophils # Basophils # Nucleated RBCs/100 WBC Sodium Potassium Chloride Carbon Dioxide BUN Creatinine POC Creatinine POC Estimated GFR (eGFR) Est GFR ( Amer) Est GFR (Non-Af Amer) BUN/Creatinine Ratio Glucose POC Glucose 211 H Calculated Osmolality Calcium 01/07/17 01/08/17 01/08/17 19:57 03:51 03:51 WBC 13.7 H RBC 2.83 L Hgb 7.6 L Hct 24.3 L MCV 85.9 MCH 26.9 L MCHC 31.3 L RDW 15.4 H Plt Count 190 MPV 10.7 Immature Gran % 1.1 Seg Neutrophils % 79.8 Lymphocytes % 7.8 Monocytes % 9.7 Eosinophils % 1.5 Basophils % 0.1 Neutrophils # 11.0 H Lymphocytes # 1.1 Monocytes # 1.3 Eosinophils # 0.2 Basophils # 0.0 Nucleated RBCs/100 WBC 0.1 H Sodium 138 Potassium 4.8 H Chloride 101 Carbon Dioxide 26 BUN 68 H D Creatinine 3.29 H POC Creatinine POC Estimated GFR (eGFR) Est GFR ( Amer) 23 L Est GFR (Non-Af Amer) 19 L BUN/Creatinine Ratio 21 Glucose 146 H POC Glucose 183 H Calculated Osmolality 308 H Calcium 8.7 - ABG Interpretation ABG results: ABG ABG pH 7.48 pH Units (7.32-7.45) H 01/06/17 14:40 ABG pCO2 37 mmHg (35-45) 01/06/17 14:40 ABG pO2 77 mmHg (85-104) L 01/06/17 14:40 ABG O2 Saturation 96 % (95-98) 01/06/17 14:40 PT/INR, D-dimer PT 14.1 Seconds (9.4-12.1) H 01/07/17 03:16 Consult Discharge Plan - Plan [facility]errals: [facility] [Primary Care Provider] - <Arron Manzano - Last Filed: 01/08/17 15:40> Date of Encounter: 01/08/17 - Assessment and plan (1) Abdominal pain Current Visit: Yes Status: Acute Qualifiers: Abdominal location: unspecified location Qualified Code(s): R10.9 - Unspecified abdominal pain (2) [place] hematuria Current Visit: Yes Status: Acute (3) Acute hypercapnic respiratory failure Current Visit: No Status: Acute (4) Prostate cancer metastatic to intrapelvic lymph node Current Visit: No Status: Chronic (5) Goals of care, counseling/discussion Current Visit: No Status: Acute - Time Spent With Patient Total time spent is greater than 50% in coordination of care (as documented) at patient's floor/unit and/or counseling patient: - Constitutional Vitals: Abnormal lab results WBC 13.7 K/mcL (4.3-11.1) H 01/08/17 03:51 RBC 2.83 M/mcL (4.19-5.50) L 01/08/17 03:51 Hgb 7.6 g/dL (12.9-16.9) L 01/08/17 03:51 Hct 24.3 % (37.5-50.1) L 01/08/17 03:51 MCH 26.9 pg (28.0-33.3) L 01/08/17 03:51 MCHC 31.3 g/dL (31.6-35.5) L 01/08/17 03:51 RDW 15.4 % (11.5-14.5) H 01/08/17 03:51 Neutrophils # 11.0 K/mcL (1.6-8.9) H 01/08/17 03:51 Nucleated RBCs/100 WBC 0.1 /100 WBC (0) H 01/08/17 03:51 PT 14.1 Seconds (9.4-12.1) H 01/07/17 03:16 ABG pH 7.48 pH Units (7.32-7.45) H 01/06/17 14:40 ABG pO2 77 mmHg (85-104) L 01/06/17 14:40 ABG HCO3 27.6 mEQ/L (21-27) H 01/06/17 14:40 ABG Total CO2 28.7 mEq/L (20-26) H 01/06/17 14:40 ABG Base Excess 3.8 mEq/L (-2.0 to 3.0) H 01/06/17 14:40 Potassium 4.8 mEq/L (3.5-4.5) H 01/08/17 03:51 BUN 68 mg/dL (8-26) H D 01/08/17 03:51 Creatinine 3.29 mg/dL (0.72-1.25) H 01/08/17 03:51 Est GFR ( Amer) 23 (> 60) L 01/08/17 03:51 Est GFR (Non-Af Amer) 19 (> 60) L 01/08/17 03:51 Glucose 146 mg/dL (70-99) H 01/08/17 03:51 POC Glucose 183 (58-89) H 01/07/17 19:57 Calculated Osmolality 308 (280-300) H 01/08/17 03:51 Alkaline Phosphatase 143 Units/L (38-126) H 01/07/17 03:16 Troponin I 0.07 ng/mL (0-0.03) H* 12/30/16 07:36 Serum Total Protein 5.6 g/dL (6.0-8.3) L 01/07/17 03:16 Albumin 2.3 g/dL (3.5-5.0) L D 01/07/17 03:16 Albumin/Globulin Ratio 0.7 (1.1-2.2) L 01/07/17 03:16 Total Testosterone 19 ng/dL (221-716) L 01/01/17 19:38 Ur Specimen Adequacy See below A 12/30/16 08:49 Urine Color Red (Yellow) A 12/30/16 08:49 Urine Clarity Cloudy (Clear) A 12/30/16 08:49 Ur Specific [place] 1.026 (1.010-1.025) H 12/30/16 08:49 Urine Protein >=1000 mg/dL (Neg-Trace) H 12/30/16 08:49 Urine Glucose (UA) 100 mg/dL (Normal) H 12/30/16 08:49 Urine Ketones Trace mg/dL (Negative) H 12/30/16 08:49 Urine Blood Large (Negative) H 12/30/16 08:49 Urine Nitrite Positive (Negative) A 12/30/16 08:49 Urine Bilirubin Small (Negative) H 12/30/16 08:49 Ur Leukocyte Esterase Small (Negative) H 12/30/16 08:49 Ur Culture Indicated? YES (NO) A 12/30/16 08:49 - Attending Attestation I examined this patient and my medical decision-making was reviewed with the CHUTE MAN/PA/Advanced Practice Nurse/Resident Physician. I agree with the documented findings, disposition and treatment plan as described except to the extent set forth below. Palliative Quality Code Status: 12/30/16 10:10 DNR [Resuscitation Status: Active] [RES] Routine Comment: ok with intubation for respiratory purposes only Resuscitation Status: DNR-Comfort Care-Arrest - Labs CBC & Chem 7: 01/08/17 03:51 01/08/17 03:51 Labs: Laboratory Results - last 24 hr 01/05/17 01/07/17 01/07/17 19:02 05:35 11:02 WBC RBC Hgb Hct MCV MCH MCHC RDW Plt Count MPV Immature Gran % Seg Neutrophils % Lymphocytes % Monocytes % Eosinophils % Basophils % Neutrophils # Lymphocytes # Monocytes # Eosinophils # Basophils # Nucleated RBCs/100 WBC Sodium Potassium Chloride Carbon Dioxide BUN Creatinine POC Creatinine 0.90 POC Estimated GFR (eGFR) > 60 Est GFR ( Amer) Est GFR (Non-Af Amer) BUN/Creatinine Ratio Glucose POC Glucose 149 H 137 H Calculated Osmolality Calcium 01/07/17 01/07/17 01/07/17 18:41 19:46 19:57 WBC RBC Hgb 8.2 L Hct 25.7 L MCV MCH MCHC RDW Plt Count MPV Immature Gran % Seg Neutrophils % Lymphocytes % Monocytes % Eosinophils % Basophils % Neutrophils # Lymphocytes # Monocytes # Eosinophils # Basophils # Nucleated RBCs/100 WBC Sodium Potassium Chloride Carbon Dioxide BUN Creatinine POC Creatinine POC Estimated GFR (eGFR) Est GFR ( Amer) Est GFR (Non-Af Amer) BUN/Creatinine Ratio Glucose POC Glucose 211 H 183 H Calculated Osmolality Calcium 01/08/17 01/08/17 03:51 03:51 WBC 13.7 H RBC 2.83 L Hgb 7.6 L Hct 24.3 L MCV 85.9 MCH 26.9 L MCHC 31.3 L RDW 15.4 H Plt Count 190 MPV 10.7 Immature Gran % 1.1 Seg Neutrophils % 79.8 Lymphocytes % 7.8 Monocytes % 9.7 Eosinophils % 1.5 Basophils % 0.1 Neutrophils # 11.0 H Lymphocytes # 1.1 Monocytes # 1.3 Eosinophils # 0.2 Basophils # 0.0 Nucleated RBCs/100 WBC 0.1 H Sodium 138 Potassium 4.8 H Chloride 101 Carbon Dioxide 26 BUN 68 H D Creatinine 3.29 H POC Creatinine POC Estimated GFR (eGFR) Est GFR ( Amer) 23 L Est GFR (Non-Af Amer) 19 L BUN/Creatinine Ratio 21 Glucose 146 H POC Glucose Calculated Osmolality 308 H Calcium 8.7 - Impressions Impressions Fluoroscopy 01/06/17 10:25 IMPRESSION: Intraprocedural fluoroscopic spot images as above. See separate procedure report for more information. D/ / 01/06/2017 11:05:11 Liz Mariscal MD / luciano Interpreting Provider: Liz Mariscal MD - ABG Interpretation ABG results: ABG ABG pH 7.48 pH Units (7.32-7.45) H 01/06/17 14:40 ABG pCO2 37 mmHg (35-45) 01/06/17 14:40 ABG pO2 77 mmHg (85-104) L 01/06/17 14:40 ABG O2 Saturation 96 % (95-98) 01/06/17 14:40 PT/INR, D-dimer PT 14.1 Seconds (9.4-12.1) H 01/07/17 03:16
--- NOTE | 2017-01-08 11:53 | Pulmonology Progress Note ---
Date of Encounter: 01/08/17 Time of Encounter: 11:50 Assessment and Plan (1) Gross hematuria Current Visit: Yes Status: Acute Paitent was taken to the OR 01/06 for cystoscopy, clot evacuation, fulguration and right ureteral stent placement. Patient was successfully extubated this yesterday, satting 96% on 3 liter of nasal cannula, patient is stable to be transferred out of ICU to telemetry floor. Was unable to be transferred yesterday due to lack of bed availability. Signout has been given to the admitting physician. (2) Acute worsening of stage 3 chronic kidney disease Current Visit: No Status: Chronic Creatinine continues to improve today. 4.28 > 3.29. (3) Hyperkalemia Current Visit: No Status: Resolved Likely secondary to chronic kidney disease. Improving. 5.4 > 4.8 (4) Prostate cancer Current Visit: Yes Status: Acute Hx of metastatic high-grade, castration resistant prostate cancer and is noted to have poor prognosis. Patient has also been seen by palliative care team and oncology during this hospitalization and he opted to pursue outpatient chemotherapy and palliative radiation. (5) COPD (chronic obstructive pulmonary disease) Current Visit: Yes Status: Chronic Not in exacerbation. Continue oxygen supplementation as needed. Qualifiers: COPD type: unspecified COPD Qualified Code(s): J44.9 - Chronic obstructive pulmonary disease, unspecified (6) DM II (diabetes mellitus, type II), controlled Current Visit: No Status: Chronic Continue sliding scale insulin with accucheck before meals and at bedtime. Qualifiers: Diabetes mellitus complication status: with unspecified complications Diabetes mellitus emt intermediate insulin use: with residential use Qualified Code(s) : E11.8 - Type 2 diabetes mellitus with unspecified complications; Z79.4 - skilled nursing (current) use of insulin (7) Leukocytosis (leucocytosis) Current Visit: No Status: Resolved Improved, unclear source of etiology, infectious vs reactive, urine culture came back negative, chest x-ray showed bibasilar opacities, left patchy opacity increased in the interval, atelectasis vs pneumonia, obtained blood cultures from 01/06 show no growth at this time. Qualifiers: Leukocytosis type: unspecified Qualified Code(s): D72.829 - Elevated white blood cell count, unspecified (8) DVT prophylaxis Current Visit: No Status: Acute IPC Subjective Principal diagnosis: Hematuria Interval history: No acute events overnight, patient was successfully extubated yesterday, tolerating well with 3 L of nasal cannula sat. of 96%, continue plan to transfer to telemetry floor pending bed availability. Objective PUL Vital signs: Last Vital Signs Temp 98.4 F 01/08/17 08:47 Pulse 81 01/08/17 08:22 Resp 14 01/08/17 08:22 BP 106/71 01/08/17 08:22 Pulse Ox 96 01/08/17 08:22 General appearance: no acute distress, alert Eyes: nonicteric, other (no right eye) ENT: oropharynx moist Neck: supple Effort: normal Auscultation: bilateral: clear Cardiovascular: regular rate and rhythm Gastrointestinal: normoactive bowel sounds Integumentary: normal Extremities: no cyanosis, pink and warm Musculoskeletal: no deformities normal mental status Results - Laboratory Findings CBC and BMP: 01/08/17 03:51 01/08/17 03:51 ABG ABG pH 7.48 pH Units (7.32-7.45) H 01/06/17 14:40 ABG pCO2 37 mmHg (35-45) 01/06/17 14:40 ABG pO2 77 mmHg (85-104) L 01/06/17 14:40 ABG O2 Saturation 96 % (95-98) 01/06/17 14:40 PT/INR, D-dimer PT 14.1 Seconds (9.4-12.1) H 01/07/17 03:16 Abnormal lab findings: Abnormal lab results WBC 13.7 K/mcL (4.3-11.1) H 01/08/17 03:51 RBC 2.83 M/mcL (4.19-5.50) L 01/08/17 03:51 Hgb 7.6 g/dL (12.9-16.9) L 01/08/17 03:51 Hct 24.3 % (37.5-50.1) L 01/08/17 03:51 MCH 26.9 pg (28.0-33.3) L 01/08/17 03:51 MCHC 31.3 g/dL (31.6-35.5) L 01/08/17 03:51 RDW 15.4 % (11.5-14.5) H 01/08/17 03:51 Neutrophils # 11.0 K/mcL (1.6-8.9) H 01/08/17 03:51 Nucleated RBCs/100 WBC 0.1 /100 WBC (0) H 01/08/17 03:51 PT 14.1 Seconds (9.4-12.1) H 01/07/17 03:16 ABG pH 7.48 pH Units (7.32-7.45) H 01/06/17 14:40 ABG pO2 77 mmHg (85-104) L 01/06/17 14:40 ABG HCO3 27.6 mEQ/L (21-27) H 01/06/17 14:40 ABG Total CO2 28.7 mEq/L (20-26) H 01/06/17 14:40 ABG Base Excess 3.8 mEq/L (-2.0 to 3.0) H 01/06/17 14:40 Potassium 4.8 mEq/L (3.5-4.5) H 01/08/17 03:51 BUN 68 mg/dL (8-26) H D 01/08/17 03:51 Creatinine 3.29 mg/dL (0.72-1.25) H 01/08/17 03:51 Est GFR ( Amer) 23 (> 60) L 01/08/17 03:51 Est GFR (Non-Af Amer) 19 (> 60) L 01/08/17 03:51 Glucose 146 mg/dL (70-99) H 01/08/17 03:51 POC Glucose 183 (58-89) H 01/07/17 19:57 Calculated Osmolality 308 (280-300) H 01/08/17 03:51 Alkaline Phosphatase 143 Units/L (38-126) H 01/07/17 03:16 Troponin I 0.07 ng/mL (0-0.03) H* 12/30/16 07:36 Serum Total Protein 5.6 g/dL (6.0-8.3) L 01/07/17 03:16 Albumin 2.3 g/dL (3.5-5.0) L D 01/07/17 03:16 Albumin/Globulin Ratio 0.7 (1.1-2.2) L 01/07/17 03:16 Total Testosterone 19 ng/dL (221-716) L 01/01/17 19:38 Ur Specimen Adequacy See below A 12/30/16 08:49 Urine Color Red (Yellow) A 12/30/16 08:49 Urine Clarity Cloudy (Clear) A 12/30/16 08:49 Ur Specific [place] 1.026 (1.010-1.025) H 12/30/16 08:49 Urine Protein >=1000 mg/dL (Neg-Trace) H 12/30/16 08:49 Urine Glucose (UA) 100 mg/dL (Normal) H 12/30/16 08:49 Urine Ketones Trace mg/dL (Negative) H 12/30/16 08:49 Urine Blood Large (Negative) H 12/30/16 08:49 Urine Nitrite Positive (Negative) A 12/30/16 08:49 Urine Bilirubin Small (Negative) H 12/30/16 08:49 Ur Leukocyte Esterase Small (Negative) H 12/30/16 08:49 Ur Culture Indicated? YES (NO) A 12/30/16 08:49 - Microbiology Findings Microbiology Findings: Microbiology, Last 48 Hours 01/06/17 16:43 Blood Culture - Preliminary Peripheral Venipuncture No growth. - Clinical Findings Intake & Output: Intake & Output 01/07/17 01/08/17 01/08/17 23:59 07:59 15:59 Output Total 1100 / 1100 600 / 600 Balance -1100 / -1100 -600 / -600 Weight 98.2 kg - VTE Documentation of Mechanical Device: Intermittent pneumatic compression device Consult Discharge Plan - Plan Referrals: [facility] [Primary Care Provider] - - Attending Attestation I examined this patient and my medical decision-making was reviewed with the FACILITIES PLANNER/PA/Advanced Practice Nurse/Resident Physician. I agree with the documented findings, disposition and treatment plan as described except to the extent set forth below.
[2017-01-08] MEDS: Saliva Stimulant 100ml BOTTLE PO SCH ×2 (12:26→21:15)
--- NOTE | 2017-01-08 17:50 | Internal Med Progress Note ---
Date of Encounter: 01/05/17 Time of Encounter: 09:00 - Assessment and plan (1) Acute on chronic renal failure Current Visit: Yes Status: Acute Assessment and plan: Patient is noted to have acute on chronic oliguric renal failure, likely related to obstructive uropathy/hematuria/metastatic prostate cancer. Noted to have hyperkalemia and metabolic acidosis. We will give calcium gluconate, D50, insulin and albuterol along with oral Kayexalate. Monitor electrolytes closely. Repeat CT abdomen, CBC and BMP. Urology on board. Guarded prognosis. (2) Prostate cancer metastatic to intrapelvic lymph node Current Visit: Yes Status: Chronic Assessment and plan: This is a late entry progress note for 01/05/17; Patient has been admitted with hematuria secondary to metastatic high-grade, castration resistant prostate cancer and is noted to have poor prognosis. Patient has also been seen by palliative care team and oncology and he opted to pursue outpatient chemotherapy and palliative radiation. Radiation oncology evaluation appreciated, patient is scheduled for palliative radiation in the hopes of stopping the bleed, today. However, this has been postponed due to planned cystoscopy today. (3) Gross hematuria Current Visit: Yes Status: Acute Assessment and plan: Related to underlying prostate cancer. Hematuria initially improved, however continues bladder irrigation has been resumed since 2 days due to persistent gross hematuria and clot retention. Hemoglobin only improved from 7.4-7.9 despite 1 unit PRBC transfusion yesterday. Patient is noted to be oliguric with worsening mental status, hyperkalemia and renal failure today. Case discussed with urology, cystoscopy has been held due to unstable condition and recommend CT abdomen/pelvis to evaluate for obstructive uropathy. High risk for complications. (4) History of atrial fibrillation Current Visit: Yes Status: Chronic (5) COPD (chronic obstructive pulmonary disease) Current Visit: Yes Status: Chronic Qualifiers: COPD type: unspecified COPD Qualified Code(s): J44.9 - Chronic obstructive pulmonary disease, unspecified (6) Acute encephalopathy Current Visit: Yes Status: Acute (7) UTI (urinary tract infection) Current Visit: Yes Status: Ruled-out Qualifiers: Urinary tract infection type: site unspecified Hematuria presence: with hematuria Qualified Code(s): N39.0 - Urinary tract infection, site not specified; R31.9 - Hematuria, unspecified (8) DMII (diabetes mellitus, type 2) Current Visit: Yes Status: Chronic Assessment and plan: Continue Accu-Chek blood glucose monitoring with sliding scale insulin. 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 Noncommunicative today. Noted to have intermittent involuntary jerks. Continuous bladder irrigation ongoing. - Constitutional Vitals: Temp Pulse Resp BP Pulse Ox 98.2 F 81 29 123/77 97 01/08/17 13:14 01/08/17 17:07 01/08/17 17:07 01/08/17 17:07 01/08/17 17:07 General appearance: Present: A&O X 0 (Lethargic and somnolent, responds only to painful stimuli) - Respiratory Respiratory exam: Present: CTAB. Absent: accessory muscle use, rales, rhonchi, wheezes - Cardiovascular Cardiovascular exam: Present: RRR, +S1, +S2. Absent: diastolic murmur, gallop, rubs, systolic murmur - GI/Abdominal GI/Abdominal exam: Present: normal bowel sounds, soft, no peritoneal signs. Absent: distended, tenderness Additional comments: Continuous bladder irrigation with ongoing gross hematuria and clots - Extremities Exam Extremities exam: Present: warm, radial pulses palpable and symetrical. Absent : calf tenderness, cyanotic, pedal edema - Neurological Exam Neurological exam: Present: altered, no focal deficits (Most all extremities spontaneously but further examination cannot be completed due to mental status) . Absent: pronater drift, facial droop, speech deficit Internal Medicine: Result - Labs CBC & Chem 7: 01/08/17 03:51 01/08/17 03:51 Labs: Short CBC 01/07/17 01/08/17 Range/Units 19:46 03:51 WBC 13.7 H (4.3-11.1) K/mcL Hgb 8.2 L 7.6 L (12.9-16.9) g/dL Hct 25.7 L 24.3 L (37.5-50.1) % Plt Count 190 (140-400) K/mcL Neutrophils # 11.0 H (1.6-8.9) K/mcL BMP 01/08/17 03:51 Sodium 138 Potassium 4.8 H Chloride 101 Carbon Dioxide 26 BUN 68 H D Creatinine 3.29 H Glucose 146 H Calcium 8.7 - ABG Interpretation ABG results: ABG ABG pH 7.48 pH Units (7.32-7.45) H 01/06/17 14:40 ABG pCO2 37 mmHg (35-45) 01/06/17 14:40 ABG pO2 77 mmHg (85-104) L 01/06/17 14:40 ABG O2 Saturation 96 % (95-98) 01/06/17 14:40 PT/INR, D-dimer PT 14.1 Seconds (9.4-12.1) H 01/07/17 03:16 - Impressions Impressions Fluoroscopy 01/06/17 10:25 IMPRESSION: Intraprocedural fluoroscopic spot images as above. See separate procedure report for more information. D/ / 01/06/2017 11:05:11 Liz Mariscal MD / luciano Interpreting Provider: Liz Mariscal MD - VTE Documentation of Mechanical Device: Intermittent pneumatic compression device Consult Discharge Plan - Plan [facility]errals: [facility] [Primary Care Provider] -
[2017-01-09] MEDS: Pantoprazole 40 MG VIAL IVP SCH (05:50)
[2017-01-09 07:44] LABS: Basophils % 0.4 %; Eosinophils # 0.3 K/mcL (0.0-0.6); Eosinophils % 2.3 %; Hematocrit 25.1 % (37.5-50.1); Hemoglobin 7.9 g/dL (12.9-16.9); Immature Granulocytes % 0.8 % (0-4); Lymphocytes % 8.8 %; Mean Corpuscular HGB Conc 31.5 g/dL (31.6-35.5); Mean Corpuscular Volume 85.7 fL (83.0-100.0); Mean Platelet Volume 10.5 fL (9.4-12.4); Monocytes % 8.9 %; Nucleated Red Blood Cells 0.2 /100 WBC (0); Platelet Count 192 K/mcL (140-400); Red Blood Count 2.93 M/mcL (4.19-5.50); Red Cell Distribution Width 15.2 % (11.5-14.5); Segmented Neutrophils % 78.8 %
[2017-01-09 07:55] LABS: Potassium 5.2 mEq/L (3.5-4.5)
[2017-01-09] MEDS: Ascorbic Acid 500 MG TABLET PO SCH (08:19)
[2017-01-09] MEDS: Thiamine (B-1) 100 MG TABLET PO SCH (08:19)
[2017-01-09] MEDS: Sennosides/Docusate Sodium TABLET PO SCH ×2 (08:19→22:30)
[2017-01-09] MEDS: Artificial Tears SOLN 15 ML BOTTLE OP SCH ×4 (08:22→22:31)
[2017-01-09] MEDS: Insulin LISPRO 300 UNITS/3 ML VIAL SQ SCH ×4 (08:22→22:31)
[2017-01-09] MEDS: Saliva Stimulant 100ml BOTTLE PO SCH ×2 (08:22→22:31)
--- NOTE | 2017-01-09 09:20 | Palliative Progress Note ---
<Lorenzo Garcia - Last Filed: 01/09/17 11:34> Date of Encounter: 01/09/17 Time of Encounter: 09:20 - Assessment and plan (1) Goals of care, counseling/discussion Current Visit: No Status: Acute Assessment and plan: Patient desires to keep his code status of DNR CCA Although he desires to go home, he will not be able to receive the proper care [facility] who [facility] resided at [facility] and is agreeable to returning there for completion of his rehab coordinator volunteer services working on placement (2) Gross hematuria Current Visit: Yes Status: Acute Assessment and plan: Urology managing CBI POD #2 right ureteral stent Still light pink drainage through catheter, Hb is stable from yesterday (3) Prostate cancer metastatic to intrapelvic lymph node Current Visit: Yes Status: Chronic Assessment and plan: Patient still desires to have palliative chemo-radiation - Time Spent With Patient Total time spent is greater than 50% in coordination of care (as documented) at patient's floor/unit and/or counseling patient: - Subjective Interval history: Pt seen and examined. He states he is doing well this morning and has no complaints of pain, SOB, nausea, vomiting, diarrhea. He still desires to ultimately go home but is agreeable to going back to [facility] for rehab prior to that. He still wants palliative chemo-radiation. - Constitutional Vitals: Abnormal lab results WBC 11.4 K/mcL (4.3-11.1) H 01/09/17 07:32 RBC 2.93 M/mcL (4.19-5.50) L 01/09/17 07:32 Hgb 7.9 g/dL (12.9-16.9) L 01/09/17 07:32 Hct 25.1 % (37.5-50.1) L 01/09/17 07:32 MCH 27.0 pg (28.0-33.3) L 01/09/17 07:32 MCHC 31.5 g/dL (31.6-35.5) L 01/09/17 07:32 RDW 15.2 % (11.5-14.5) H 01/09/17 07:32 Neutrophils # 9.0 K/mcL (1.6-8.9) H 01/09/17 07:32 Nucleated RBCs/100 WBC 0.2 /100 WBC (0) H 01/09/17 07:32 PT 14.1 Seconds (9.4-12.1) H 01/07/17 03:16 ABG pH 7.48 pH Units (7.32-7.45) H 01/06/17 14:40 ABG pO2 77 mmHg (85-104) L 01/06/17 14:40 ABG HCO3 27.6 mEQ/L (21-27) H 01/06/17 14:40 ABG Total CO2 28.7 mEq/L (20-26) H 01/06/17 14:40 ABG Base Excess 3.8 mEq/L (-2.0 to 3.0) H 01/06/17 14:40 Potassium 5.2 mEq/L (3.5-4.5) H 01/09/17 07:32 BUN 67 mg/dL (8-26) H 01/09/17 07:32 Creatinine 2.37 mg/dL (0.72-1.25) H 01/09/17 07:32 Est GFR ( Amer) 33 (> 60) L 01/09/17 07:32 Est GFR (Non-Af Amer) 27 (> 60) L 01/09/17 07:32 BUN/Creatinine Ratio 28 (6-26) H 01/09/17 07:32 Glucose 124 mg/dL (70-99) H 01/09/17 07:32 POC Glucose 133 (58-89) H 01/08/17 20:25 Calculated Osmolality 307 (280-300) H 01/09/17 07:32 Alkaline Phosphatase 143 Units/L (38-126) H 01/07/17 03:16 Troponin I 0.07 ng/mL (0-0.03) H* 12/30/16 07:36 Serum Total Protein 5.6 g/dL (6.0-8.3) L 01/07/17 03:16 Albumin 2.3 g/dL (3.5-5.0) L D 01/07/17 03:16 Albumin/Globulin Ratio 0.7 (1.1-2.2) L 01/07/17 03:16 Total Testosterone 19 ng/dL (221-716) L 01/01/17 19:38 Ur Specimen Adequacy See below A 12/30/16 08:49 Urine Color Red (Yellow) A 12/30/16 08:49 Urine Clarity Cloudy (Clear) A 12/30/16 08:49 Ur Specific [place] 1.026 (1.010-1.025) H 12/30/16 08:49 Urine Protein >=1000 mg/dL (Neg-Trace) H 12/30/16 08:49 Urine Glucose (UA) 100 mg/dL (Normal) H 12/30/16 08:49 Urine Ketones Trace mg/dL (Negative) H 12/30/16 08:49 Urine Blood Large (Negative) H 12/30/16 08:49 Urine Nitrite Positive (Negative) A 12/30/16 08:49 Urine Bilirubin Small (Negative) H 12/30/16 08:49 Ur Leukocyte Esterase Small (Negative) H 12/30/16 08:49 Ur Culture Indicated? YES (NO) A 12/30/16 08:49 - Head Head exam: Present: atraumatic, normal inspection, normocephalic - Eye Eye exam: Present: EOMI, PERRL - ENT ENT exam: Present: mucous membranes moist - Respiratory Respiratory exam: Present: CTAB. Absent: respiratory distress, rhonchi, wheezes - Cardiovascular Cardiovascular exam: Present: RRR, +S1, +S2 - GI/Abdominal GI/Abdominal exam: Present: soft. Absent: distended, firm, guarding, tenderness - Extremities Exam Extremities exam: Absent: pedal edema, tenderness - Neurological Exam Neurological exam: Present: alert, altered, CN II-XII intact, oriented X3, no focal deficits. Absent: pronater drift, facial droop, speech deficit Palliative Quality Palliative Quality: Screen for Code Status: Yes, Screen for Goals of Care: Yes, Screen for Pain: Yes, If Pain Regimen Started, Initiate Bowel Regimen: No (Will recommend), Screen for Nausea/Vomitting: Yes Code Status: 12/30/16 10:10 DNR [Resuscitation Status: Active] [RES] Routine Comment: ok with intubation for respiratory purposes only Resuscitation Status: DNR-Comfort Care-Arrest - Labs CBC & Chem 7: 01/09/17 07:32 01/09/17 07:32 Labs: Laboratory Results - last 24 hr 01/08/17 01/08/17 01/08/17 07:59 12:25 16:59 WBC RBC Hgb Hct MCV MCH MCHC RDW Plt Count MPV Immature Gran % Seg Neutrophils % Lymphocytes % Monocytes % Eosinophils % Basophils % Neutrophils # Lymphocytes # Monocytes # Eosinophils # Basophils # Nucleated RBCs/100 WBC Sodium Potassium Chloride Carbon Dioxide BUN Creatinine Est GFR ( Amer) Est GFR (Non-Af Amer) BUN/Creatinine Ratio Glucose POC Glucose 147 H 148 H 192 H Calculated Osmolality Calcium 01/08/17 01/08/17 01/09/17 19:16 20:25 07:32 WBC 11.4 H RBC 2.93 L Hgb 7.9 L Hct 25.1 L MCV 85.7 MCH 27.0 L MCHC 31.5 L RDW 15.2 H Plt Count 192 MPV 10.5 Immature Gran % 0.8 Seg Neutrophils % 78.8 Lymphocytes % 8.8 Monocytes % 8.9 Eosinophils % 2.3 Basophils % 0.4 Neutrophils # 9.0 H Lymphocytes # 1.0 Monocytes # 1.0 Eosinophils # 0.3 Basophils # 0.0 Nucleated RBCs/100 WBC 0.2 H Sodium Potassium Chloride Carbon Dioxide BUN Creatinine Est GFR ( Amer) Est GFR (Non-Af Amer) BUN/Creatinine Ratio Glucose POC Glucose 218 H 133 H Calculated Osmolality Calcium 01/09/17 07:32 WBC RBC Hgb Hct MCV MCH MCHC RDW Plt Count MPV Immature Gran % Seg Neutrophils % Lymphocytes % Monocytes % Eosinophils % Basophils % Neutrophils # Lymphocytes # Monocytes # Eosinophils # Basophils # Nucleated RBCs/100 WBC Sodium 138 Potassium 5.2 H Chloride 106 Carbon Dioxide 21 BUN 67 H Creatinine 2.37 H Est GFR ( Amer) 33 L Est GFR (Non-Af Amer) 27 L BUN/Creatinine Ratio 28 H Glucose 124 H POC Glucose Calculated Osmolality 307 H Calcium 9.0 - Impressions Impressions Fluoroscopy 01/06/17 10:25 IMPRESSION: Intraprocedural fluoroscopic spot images as above. See separate procedure report for more information. D/ / 01/06/2017 11:05:11 Liz Mariscal MD / luciano Interpreting Provider: Liz Mariscal MD - ABG Interpretation ABG results: ABG ABG pH 7.48 pH Units (7.32-7.45) H 01/06/17 14:40 ABG pCO2 37 mmHg (35-45) 01/06/17 14:40 ABG pO2 77 mmHg (85-104) L 01/06/17 14:40 ABG O2 Saturation 96 % (95-98) 01/06/17 14:40 PT/INR, D-dimer PT 14.1 Seconds (9.4-12.1) H 01/07/17 03:16 Consult Discharge Plan - Plan [facility]errals: [facility] [Primary Care Provider] - <Arron Manzano - Last Filed: 01/09/17 12:03> Date of Encounter: 01/09/17 - Assessment and plan (1) Abdominal pain Current Visit: Yes Status: Acute Qualifiers: Abdominal location: unspecified location Qualified Code(s): R10.9 - Unspecified abdominal pain (2) Marino hematuria Current Visit: Yes Status: Acute (3) Acute hypercapnic respiratory failure Current Visit: No Status: Acute (4) Prostate cancer metastatic to intrapelvic lymph node Current Visit: No Status: Chronic (5) Goals of care, counseling/discussion Current Visit: No Status: Acute - Time Spent With Patient Total time spent is greater than 50% in coordination of care (as documented) at patient's floor/unit and/or counseling patient: - Constitutional Vitals: Abnormal lab results WBC 11.4 K/mcL (4.3-11.1) H 01/09/17 07:32 RBC 2.93 M/mcL (4.19-5.50) L 01/09/17 07:32 Hgb 7.9 g/dL (12.9-16.9) L 01/09/17 07:32 Hct 25.1 % (37.5-50.1) L 01/09/17 07:32 MCH 27.0 pg (28.0-33.3) L 01/09/17 07:32 MCHC 31.5 g/dL (31.6-35.5) L 01/09/17 07:32 RDW 15.2 % (11.5-14.5) H 01/09/17 07:32 Neutrophils # 9.0 K/mcL (1.6-8.9) H 01/09/17 07:32 Nucleated RBCs/100 WBC 0.2 /100 WBC (0) H 01/09/17 07:32 PT 14.1 Seconds (9.4-12.1) H 01/07/17 03:16 ABG pH 7.48 pH Units (7.32-7.45) H 01/06/17 14:40 ABG pO2 77 mmHg (85-104) L 01/06/17 14:40 ABG HCO3 27.6 mEQ/L (21-27) H 01/06/17 14:40 ABG Total CO2 28.7 mEq/L (20-26) H 01/06/17 14:40 ABG Base Excess 3.8 mEq/L (-2.0 to 3.0) H 01/06/17 14:40 Potassium 5.2 mEq/L (3.5-4.5) H 01/09/17 07:32 BUN 67 mg/dL (8-26) H 01/09/17 07:32 Creatinine 2.37 mg/dL (0.72-1.25) H 01/09/17 07:32 Est GFR ( Amer) 33 (> 60) L 01/09/17 07:32 Est GFR (Non-Af Amer) 27 (> 60) L 01/09/17 07:32 BUN/Creatinine Ratio 28 (6-26) H 01/09/17 07:32 Glucose 124 mg/dL (70-99) H 01/09/17 07:32 POC Glucose 133 (58-89) H 01/08/17 20:25 Calculated Osmolality 307 (280-300) H 01/09/17 07:32 Alkaline Phosphatase 143 Units/L (38-126) H 01/07/17 03:16 Troponin I 0.07 ng/mL (0-0.03) H* 12/30/16 07:36 Serum Total Protein 5.6 g/dL (6.0-8.3) L 01/07/17 03:16 Albumin 2.3 g/dL (3.5-5.0) L D 01/07/17 03:16 Albumin/Globulin Ratio 0.7 (1.1-2.2) L 01/07/17 03:16 Total Testosterone 19 ng/dL (221-716) L 01/01/17 19:38 Ur Specimen Adequacy See below A 12/30/16 08:49 Urine Color Red (Yellow) A 12/30/16 08:49 Urine Clarity Cloudy (Clear) A 12/30/16 08:49 Ur Specific [place] 1.026 (1.010-1.025) H 12/30/16 08:49 Urine Protein >=1000 mg/dL (Neg-Trace) H 12/30/16 08:49 Urine Glucose (UA) 100 mg/dL (Normal) H 12/30/16 08:49 Urine Ketones Trace mg/dL (Negative) H 12/30/16 08:49 Urine Blood Large (Negative) H 12/30/16 08:49 Urine Nitrite Positive (Negative) A 12/30/16 08:49 Urine Bilirubin Small (Negative) H 12/30/16 08:49 Ur Leukocyte Esterase Small (Negative) H 12/30/16 08:49 Ur Culture Indicated? YES (NO) A 12/30/16 08:49 - Attending Attestation I examined this patient and my medical decision-making was reviewed with the [employer]/PA/Advanced Practice Nurse/Resident Physician. I agree with the documented findings, disposition and treatment plan as described except to the extent set forth below. Palliative Quality Code Status: 12/30/16 10:10 DNR [Resuscitation Status: Active] [RES] Routine Comment: ok with intubation for respiratory purposes only Resuscitation Status: DNR-Comfort Care-Arrest - Labs CBC & Chem 7: 01/09/17 07:32 01/09/17 07:32 Labs: Laboratory Results - last 24 hr 01/08/17 01/08/17 01/08/17 07:59 12:25 16:59 WBC RBC Hgb Hct MCV MCH MCHC RDW Plt Count MPV Immature Gran % Seg Neutrophils % Lymphocytes % Monocytes % Eosinophils % Basophils % Neutrophils # Lymphocytes # Monocytes # Eosinophils # Basophils # Nucleated RBCs/100 WBC Sodium Potassium Chloride Carbon Dioxide BUN Creatinine Est GFR ( Amer) Est GFR (Non-Af Amer) BUN/Creatinine Ratio Glucose POC Glucose 147 H 148 H 192 H Calculated Osmolality Calcium 01/08/17 01/08/17 01/09/17 19:16 20:25 07:32 WBC 11.4 H RBC 2.93 L Hgb 7.9 L Hct 25.1 L MCV 85.7 MCH 27.0 L MCHC 31.5 L RDW 15.2 H Plt Count 192 MPV 10.5 Immature Gran % 0.8 Seg Neutrophils % 78.8 Lymphocytes % 8.8 Monocytes % 8.9 Eosinophils % 2.3 Basophils % 0.4 Neutrophils # 9.0 H Lymphocytes # 1.0 Monocytes # 1.0 Eosinophils # 0.3 Basophils # 0.0 Nucleated RBCs/100 WBC 0.2 H Sodium Potassium Chloride Carbon Dioxide BUN Creatinine Est GFR ( Amer) Est GFR (Non-Af Amer) BUN/Creatinine Ratio Glucose POC Glucose 218 H 133 H Calculated Osmolality Calcium 01/09/17 07:32 WBC RBC Hgb Hct MCV MCH MCHC RDW Plt Count MPV Immature Gran % Seg Neutrophils % Lymphocytes % Monocytes % Eosinophils % Basophils % Neutrophils # Lymphocytes # Monocytes # Eosinophils # Basophils # Nucleated RBCs/100 WBC Sodium 138 Potassium 5.2 H Chloride 106 Carbon Dioxide 21 BUN 67 H Creatinine 2.37 H Est GFR ( Amer) 33 L Est GFR (Non-Af Amer) 27 L BUN/Creatinine Ratio 28 H Glucose 124 H POC Glucose Calculated Osmolality 307 H Calcium 9.0 - Impressions Impressions Fluoroscopy 01/06/17 10:25
--- NOTE | 2017-01-09 10:44 | Urology Progress Note ---
Date of Encounter: 01/09/17 Time of Encounter: 10:40 - Assessment and Plan (1) Gross hematuria Current Visit: Yes Status: Acute Assessment and plan: 71 year old man with gross hematuria s/p clot evacuation, fulguration, right ureteral stent POD #2. 1. Continue CBI now. 2. Will monitor H&H 3. I am concerned for his consistent bleeding. My hope is that he will eventually clear, but we may need to consider alternative treatment options such as alum or formalin instillation. (2) Prostate cancer metastatic to intrapelvic lymph node Current Visit: No Status: Chronic Progress Note Narrative: 71 year old man with hematuria. POD #2 s/p cysto, clot evacuation, fulguration. He is still on slow CBI. Urine is clear to light pink. Objective Initial Vital Signs Temp Pulse Resp BP Pulse Ox 97.7 F 93 18 137/82 100 12/30/16 06:32 12/30/16 06:32 12/30/16 06:32 12/30/16 06:32 12/30/16 06:32 - General physical appearance Present: well developed, well nourished, no distress - Respiratory Present: normal respiratory effort - Abdomen Present: soft - Genitourinary Present: normal penis with no external lesions Urine Appearance: Present: Clear (Clear to light pink.) - Labs 01/09/17 07:32 01/09/17 07:32 Diabetes panel 01/09/17 Range/Units 07:32 Sodium 138 (136-145) mEq/L Potassium 5.2 H (3.5-4.5) mEq/L Chloride 106 (98-109) mEq/L Carbon Dioxide 21 (19-29) mEq/L BUN 67 H (8-26) mg/dL Creatinine 2.37 H (0.72-1.25) mg/dL Glucose 124 H (70-99) mg/dL Calcium 9.0 (8.6-10.8) mg/dL Calcium panel 01/09/17 Range/Units 07:32 Calcium 9.0 (8.6-10.8) mg/dL Pituitary panel 01/09/17 Range/Units 07:32 Sodium 138 (136-145) mEq/L Potassium 5.2 H (3.5-4.5) mEq/L Chloride 106 (98-109) mEq/L Carbon Dioxide 21 (19-29) mEq/L BUN 67 H (8-26) mg/dL Creatinine 2.37 H (0.72-1.25) mg/dL Glucose 124 H (70-99) mg/dL Calcium 9.0 (8.6-10.8) mg/dL Adrenal panel 01/09/17 Range/Units 07:32 Sodium 138 (136-145) mEq/L Potassium 5.2 H (3.5-4.5) mEq/L Chloride 106 (98-109) mEq/L Carbon Dioxide 21 (19-29) mEq/L BUN 67 H (8-26) mg/dL Creatinine 2.37 H (0.72-1.25) mg/dL Glucose 124 H (70-99) mg/dL Calcium 9.0 (8.6-10.8) mg/dL - VTE Documentation of Mechanical Device: Intermittent pneumatic compression device Consult Discharge Plan - Plan [facility]errals: [facility] [Primary Care Provider] -
--- NOTE | 2017-01-09 13:35 | RAD Oncology Progress Note ---
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 Given findings of hemorrhagic cystitis at the time of cystoscopy last week, I do not see a role for palliative radiotherapy at this time in contrast to the plan of care described in last week's consultation note. I did review overall goals of care and poor prognosis with the patient. He he continues to state his primary goal is to return to his home. We did discuss hospice care which at this time I do not think he is willing to entertain that his family seemed receptive. Please do not hesitate in contacting me with any questions or concerns going forward. Dhaval Flanagan MD
--- NOTE | 2017-01-09 16:50 | Pulmonology Progress Note ---
Date of Encounter: 01/09/17 Time of Encounter: 16:48 Assessment and Plan (1) Gross hematuria Current Visit: Yes Status: Acute Cystoscopy 01/06/17 with clot evacuation, fulguration, and right ureteral stent placement. Patient extubated 01/07/17. O2 sat 96% on 3L NC. Patient has been transferred out of ICU to tele floor; lack of bed availability precludes physical placement on medical floor. (2) Acute worsening of stage 3 chronic kidney disease Current Visit: No Status: Chronic Cr continues to improve 3.29 --> 2.37. (3) Hyperkalemia Current Visit: Yes Status: Acute Likely secondary to CKD. 5.2 today. Improved from presentation (6.4), worse from yesterday (4.8). Will continue to monitor. 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 Poor prognosis. Patient seen by palliative care team and oncology during this hospitalization. Patient will pursue outpatient chemotherapy and palliative radiation. (5) COPD (chronic obstructive pulmonary disease) Current Visit: Yes Status: Acute Not in acute exacerbation. Continue PRN O2 supplementation. Qualifiers: Qualified Code(s): J44.9 - Chronic obstructive pulmonary disease, unspecified (6) DM II (diabetes mellitus, type II), controlled Current Visit: No Status: Chronic Sliding scale insulin. Accucheck prior to meals and bedtime. 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 Etiology remains unclear; infective vs reactive. Urine culture (-) Blood culture (-) CXR 01/06/17 showed interval increase in left patchy opacity; suspicious for atelectasis vs pneumonia. Qualifiers: Leukocytosis type: unspecified Qualified Code(s): D72.829 - Elevated white blood cell count, unspecified (8) DVT prophylaxis Current Visit: No Status: Acute IPC Subjective Principal diagnosis: Hematuria Interval history: No acute events overnight. Patient tolerating therapies well and continues to improve. Will transfer to tele floor pending bed availability. Objective PUL Vital signs: Last Vital Signs Temp 98.9 F 01/09/17 15:37 Pulse 81 01/09/17 16:00 Resp 20 01/09/17 12:00 BP 106/57 01/09/17 12:00 Pulse Ox 100 01/09/17 08:24 General appearance: no acute distress Eyes: nonicteric ENT: oropharynx moist Neck: supple Effort: normal Auscultation: bilateral: clear Cardiovascular: regular rate and rhythm Gastrointestinal: normoactive bowel sounds Integumentary: normal Extremities: no cyanosis, pink and warm Musculoskeletal: no deformities normal mental status Results - Laboratory Findings CBC and BMP: 01/09/17 07:32 01/09/17 07:32 ABG ABG pH 7.48 pH Units (7.32-7.45) H 01/06/17 14:40 ABG pCO2 37 mmHg (35-45) 01/06/17 14:40 ABG pO2 77 mmHg (85-104) L 01/06/17 14:40 ABG O2 Saturation 96 % (95-98) 01/06/17 14:40 PT/INR, D-dimer PT 14.1 Seconds (9.4-12.1) H 01/07/17 03:16 Abnormal lab findings: Abnormal lab results WBC 11.4 K/mcL (4.3-11.1) H 01/09/17 07:32 RBC 2.93 M/mcL (4.19-5.50) L 01/09/17 07:32 Hgb 7.9 g/dL (12.9-16.9) L 01/09/17 07:32 Hct 25.1 % (37.5-50.1) L 01/09/17 07:32 MCH 27.0 pg (28.0-33.3) L 01/09/17 07:32 MCHC 31.5 g/dL (31.6-35.5) L 01/09/17 07:32 RDW 15.2 % (11.5-14.5) H 01/09/17 07:32 Neutrophils # 9.0 K/mcL (1.6-8.9) H 01/09/17 07:32 Nucleated RBCs/100 WBC 0.2 /100 WBC (0) H 01/09/17 07:32 PT 14.1 Seconds (9.4-12.1) H 01/07/17 03:16 ABG pH 7.48 pH Units (7.32-7.45) H 01/06/17 14:40 ABG pO2 77 mmHg (85-104) L 01/06/17 14:40 ABG HCO3 27.6 mEQ/L (21-27) H 01/06/17 14:40 ABG Total CO2 28.7 mEq/L (20-26) H 01/06/17 14:40 ABG Base Excess 3.8 mEq/L (-2.0 to 3.0) H 01/06/17 14:40 Potassium 5.2 mEq/L (3.5-4.5) H 01/09/17 07:32 BUN 67 mg/dL (8-26) H 01/09/17 07:32 Creatinine 2.37 mg/dL (0.72-1.25) H 01/09/17 07:32 Est GFR ( Amer) 33 (> 60) L 01/09/17 07:32 Est GFR (Non-Af Amer) 27 (> 60) L 01/09/17 07:32 BUN/Creatinine Ratio 28 (6-26) H 01/09/17 07:32 Glucose 124 mg/dL (70-99) H 01/09/17 07:32 POC Glucose 133 (58-89) H 01/08/17 20:25 Calculated Osmolality 307 (280-300) H 01/09/17 07:32 Alkaline Phosphatase 143 Units/L (38-126) H 01/07/17 03:16 Troponin I 0.07 ng/mL (0-0.03) H* 12/30/16 07:36 Serum Total Protein 5.6 g/dL (6.0-8.3) L 01/07/17 03:16 Albumin 2.3 g/dL (3.5-5.0) L D 01/07/17 03:16 Albumin/Globulin Ratio 0.7 (1.1-2.2) L 01/07/17 03:16 Total Testosterone 19 ng/dL (221-716) L 01/01/17 19:38 Ur Specimen Adequacy See below A 12/30/16 08:49 Urine Color Red (Yellow) A 12/30/16 08:49 Urine Clarity Cloudy (Clear) A 12/30/16 08:49 Ur Specific [place] 1.026 (1.010-1.025) H 12/30/16 08:49 Urine Protein >=1000 mg/dL (Neg-Trace) H 12/30/16 08:49 Urine Glucose (UA) 100 mg/dL (Normal) H 12/30/16 08:49 Urine Ketones Trace mg/dL (Negative) H 12/30/16 08:49 Urine Blood Large (Negative) H 12/30/16 08:49 Urine Nitrite Positive (Negative) A 12/30/16 08:49 Urine Bilirubin Small (Negative) H 12/30/16 08:49 Ur Leukocyte Esterase Small (Negative) H 12/30/16 08:49 Ur Culture Indicated? YES (NO) A 12/30/16 08:49 - Microbiology Findings Microbiology Findings: Microbiology, Last 48 Hours 01/06/17 16:43 Blood Culture - Preliminary Peripheral Venipuncture No growth. 01/06/17 16:43 Blood Culture - Preliminary Peripheral Venipuncture No growth. - Clinical Findings Intake & Output: Intake & Output 01/09/17 01/09/17 01/09/17 07:59 15:59 23:59 Output Total 950 / 950 100 / 100 350 / 350 Balance -950 / -950 -100 / -100 -350 / -350 - VTE Documentation of Mechanical Device: Intermittent pneumatic compression device Consult Discharge Plan - Plan [facility]errals: [facility] [Primary Care Provider] -
[2017-01-09] MEDS ORDERED: Acetaminophen 325 MG TABLET PO PRN (22:15)
[2017-01-09] MEDS: *HR* OxyCODONE Immed Rel 5 MG TABLET PO PRN (22:30)
[2017-01-09] MEDS: Gabapentin 300 MG CAPSULE PO SCH (22:30)
[2017-01-10 06:21] LABS: Basophils % 0.3 %; Eosinophils # 0.3 K/mcL (0.0-0.6); Eosinophils % 2.2 %; Hematocrit 24.6 % (37.5-50.1); Hemoglobin 7.5 g/dL (12.9-16.9); Immature Granulocytes % 1.2 % (0-4); Lymphocytes # 0.9 K/mcL (0.6-4.6); Lymphocytes % 7.6 %; Mean Corpuscular HGB Conc 30.5 g/dL (31.6-35.5); Mean Corpuscular Hemoglobin 26.7 pg (28.0-33.3); Mean Corpuscular Volume 87.5 fL (83.0-100.0); Monocytes # 1.1 K/mcL (0.0-1.3); Monocytes % 9.1 %; Neutrophils # 9.3 K/mcL (1.6-8.9); Platelet Count 204 K/mcL (140-400); Red Blood Count 2.81 M/mcL (4.19-5.50); Red Cell Distribution Width 14.8 % (11.5-14.5); Segmented Neutrophils % 79.6 %
[2017-01-10 06:29] LABS: Calcium 8.9 mg/dL (8.6-10.8); Potassium 5.1 mEq/L (3.5-4.5)
[2017-01-10] MEDS: Insulin LISPRO 300 UNITS/3 ML VIAL SQ SCH ×3 (08:30→17:31)
[2017-01-10] MEDS: Thiamine (B-1) 100 MG TABLET PO SCH (08:31)
[2017-01-10] MEDS: Ascorbic Acid 500 MG TABLET PO SCH (08:32)
[2017-01-10] MEDS: Sennosides/Docusate Sodium TABLET PO SCH ×2 (08:32→20:49)
[2017-01-10] MEDS: Artificial Tears SOLN 15 ML BOTTLE OP SCH ×4 (08:33→20:51)
[2017-01-10] MEDS: Saliva Stimulant 100ml BOTTLE PO SCH ×2 (08:34→20:51)
--- NOTE | 2017-01-10 10:11 | Palliative Progress Note ---
<Sajan Ocasio M - Last Filed: 01/10/17 10:26> Date of Encounter: 01/10/17 Time of Encounter: 09:40 - Assessment and plan (1) Goals of care, counseling/discussion Current Visit: No Status: Acute Assessment and plan: DIRK STATUS DNR CCA. Goal: to return home. Limiting Factor: ability to care for self. Patient's current goal of care is to return home where he would like to be comfortable and visit with family and friends. Pt has a list of people he would like to talk to over the phone to tell them how good of friends they have been. Understands overall poor prognosis and no longer wishes to pursue palliative chemo but is willing to pursue hospice in the light that it may better allow him to reach his goals. We will discuss with social work to further evaluate options. The presenting options will be presented to the patient for him to chose what best fits his goals and needs. (2) Prostate cancer metastatic to intrapelvic lymph node Current Visit: Yes Status: Chronic Assessment and plan: Pt discussed his overall cancer prognosis with radiation oncology just today. Patient understands poor prognosis as well as limited intervention capabilities at this time. Patient stands possibility of palliative chemotherapy possibly extending his life expectancy but not being currative in nature. (3) Gross hematuria Current Visit: Yes Status: Acute Assessment and plan: The patient underwent cystoscopy, clot evacuation, fulguration, and right ureteral stent placement on 01/06. Continue management per urology. - Time Spent With Patient Total time spent is greater than 50% in coordination of care (as documented) at patient's floor/unit and/or counseling patient: - Subjective Interval history: Patient continues to have hematuria. When asking the patient his understanding of what has transpired during hospital stay, the patient is very insightful and able to discuss radiation oncology's conversation regarding poor prognosis as well as limited interventions. Patient is able to state current goals of care which include going home in order to enjoy family and friends. Patient has family/friends in [facility] that he would like to talk on the phone with. Patient would like the important people in his life to know how much they mean to him. Having the opportunity to visit with them is the most important thing for him. Patient is currently DNR CC arrest and had previously not been willing to discuss hospice, however, at this time he wants to pursue whatever means will allow him to best fulfill his goals. - Constitutional Vitals: Abnormal lab results WBC 11.7 K/mcL (4.3-11.1) H 01/10/17 05:07 RBC 2.81 M/mcL (4.19-5.50) L 01/10/17 05:07 Hgb 7.5 g/dL (12.9-16.9) L 01/10/17 05:07 Hct 24.6 % (37.5-50.1) L 01/10/17 05:07 MCH 26.7 pg (28.0-33.3) L 01/10/17 05:07 MCHC 30.5 g/dL (31.6-35.5) L 01/10/17 05:07 RDW 14.8 % (11.5-14.5) H 01/10/17 05:07 Neutrophils # 9.3 K/mcL (1.6-8.9) H 01/10/17 05:07 Nucleated RBCs/100 WBC 0.2 /100 WBC (0) H 01/09/17 07:32 PT 14.1 Seconds (9.4-12.1) H 01/07/17 03:16 ABG pH 7.48 pH Units (7.32-7.45) H 01/06/17 14:40 ABG pO2 77 mmHg (85-104) L 01/06/17 14:40 ABG HCO3 27.6 mEQ/L (21-27) H 01/06/17 14:40 ABG Total CO2 28.7 mEq/L (20-26) H 01/06/17 14:40 ABG Base Excess 3.8 mEq/L (-2.0 to 3.0) H 01/06/17 14:40 Potassium 5.1 mEq/L (3.5-4.5) H 01/10/17 05:07 BUN 58 mg/dL (8-26) H 01/10/17 05:07 Creatinine 1.88 mg/dL (0.72-1.25) H 01/10/17 05:07 Est GFR ( Amer) 43 (> 60) L 01/10/17 05:07 Est GFR (Non-Af Amer) 36 (> 60) L 01/10/17 05:07 BUN/Creatinine Ratio 31 (6-26) H 01/10/17 05:07 Glucose 177 mg/dL (70-99) H 01/10/17 05:07 POC Glucose 262 (58-89) H 01/10/17 07:32 Calculated Osmolality 311 (280-300) H 01/10/17 05:07 Alkaline Phosphatase 143 Units/L (38-126) H 01/07/17 03:16 Troponin I 0.07 ng/mL (0-0.03) H* 12/30/16 07:36 Serum Total Protein 5.6 g/dL (6.0-8.3) L 01/07/17 03:16 Albumin 2.3 g/dL (3.5-5.0) L D 01/07/17 03:16 Albumin/Globulin Ratio 0.7 (1.1-2.2) L 01/07/17 03:16 Total Testosterone 19 ng/dL (221-716) L 01/01/17 19:38 Ur Specimen Adequacy See below A 12/30/16 08:49 Urine Color Red (Yellow) A 12/30/16 08:49 Urine Clarity Cloudy (Clear) A 12/30/16 08:49 Ur Specific [place] 1.026 (1.010-1.025) H 12/30/16 08:49 Urine Protein >=1000 mg/dL (Neg-Trace) H 12/30/16 08:49 Urine Glucose (UA) 100 mg/dL (Normal) H 12/30/16 08:49 Urine Ketones Trace mg/dL (Negative) H 12/30/16 08:49 Urine Blood Large (Negative) H 12/30/16 08:49 Urine Nitrite Positive (Negative) A 12/30/16 08:49 Urine Bilirubin Small (Negative) H 12/30/16 08:49 Ur Leukocyte Esterase Small (Negative) H 12/30/16 08:49 Ur Culture Indicated? 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 Absent: tenderness - Extremities Exam Extremities exam: Absent: calf tenderness, pedal edema, tenderness - Neurological Exam Neurological exam: Present: alert, oriented X3 Additional comments: moves all four extremities without gross deficit - Psychiatric Psychiatric exam: Present: normal affect, normal mood Palliative Quality Palliative Quality: Screen for Code Status: Yes, Screen for Goals of Care: Yes, Screen for Pain: Yes, If Pain Regimen Started, Initiate Bowel Regimen: No (Will recommend), Screen for Nausea/Vomitting: Yes Code Status: 12/30/16 10:10 DNR [Resuscitation Status: Active] [RES] Routine Comment: ok with intubation for respiratory purposes only Resuscitation Status: DNR-Comfort Care-Arrest - Labs CBC & Chem 7: 01/10/17 05:07 01/10/17 05:07 Labs: Laboratory Results - last 24 hr 01/09/17 01/09/17 01/09/17 07:13 11:02 17:01 WBC RBC Hgb Hct MCV MCH MCHC RDW Plt Count MPV Immature Gran % Seg Neutrophils % Lymphocytes % Monocytes % Eosinophils % Basophils % Neutrophils # Lymphocytes # Monocytes # Eosinophils # Basophils # Sodium Potassium Chloride Carbon Dioxide BUN Creatinine Est GFR ( Amer) Est GFR (Non-Af Amer) BUN/Creatinine Ratio Glucose POC Glucose 126 H 262 H 138 H Calculated Osmolality Calcium 01/09/17 01/10/17 01/10/17 22:28 05:07 05:07 WBC 11.7 H RBC 2.81 L Hgb 7.5 L Hct 24.6 L MCV 87.5 MCH 26.7 L MCHC 30.5 L RDW 14.8 H Plt Count 204 MPV 11.0 Immature Gran % 1.2 Seg Neutrophils % 79.6 Lymphocytes % 7.6 Monocytes % 9.1 Eosinophils % 2.2 Basophils % 0.3 Neutrophils # 9.3 H Lymphocytes # 0.9 Monocytes # 1.1 Eosinophils # 0.3 Basophils # 0.0 Sodium 140 Potassium 5.1 H Chloride 105 Carbon Dioxide 29 BUN 58 H Creatinine 1.88 H Est GFR ( Amer) 43 L Est GFR (Non-Af Amer) 36 L BUN/Creatinine Ratio 31 H Glucose 177 H POC Glucose 162 H Calculated Osmolality 311 H Calcium 8.9 01/10/17 07:32 WBC RBC Hgb Hct MCV MCH MCHC RDW Plt Count MPV Immature Gran % Seg Neutrophils % Lymphocytes % Monocytes % Eosinophils % Basophils % Neutrophils # Lymphocytes # Monocytes # Eosinophils # Basophils # Sodium Potassium Chloride Carbon Dioxide BUN Creatinine Est GFR ( Amer) Est GFR (Non-Af Amer) BUN/Creatinine Ratio Glucose POC Glucose 262 H Calculated Osmolality Calcium - ABG Interpretation ABG results: ABG ABG pH 7.48 pH Units (7.32-7.45) H 01/06/17 14:40 ABG pCO2 37 mmHg (35-45) 01/06/17 14:40 ABG pO2 77 mmHg (85-104) L 01/06/17 14:40 ABG O2 Saturation 96 % (95-98) 01/06/17 14:40 PT/INR, D-dimer PT 14.1 Seconds (9.4-12.1) H 01/07/17 03:16 Consult Discharge Plan - Plan [facility]errals: [facility] [Primary Care Provider] - <Arron Manzano - Last Filed: 01/10/17 13:11> Date of Encounter: 01/10/17 - Assessment and plan (1) Abdominal pain Current Visit: Yes Status: Acute Qualifiers: Abdominal location: unspecified location Qualified Code(s): R10.9 - Unspecified abdominal pain (2) [place] hematuria Current Visit: Yes Status: Acute (3) Acute hypercapnic respiratory failure Current Visit: No Status: Acute (4) Prostate cancer metastatic to intrapelvic lymph node Current Visit: No Status: Chronic (5) Goals of care, counseling/discussion Current Visit: No Status: Acute - Time Spent With Patient Total time spent is greater than 50% in coordination of care (as documented) at patient's floor/unit and/or counseling patient: - Constitutional Vitals: Abnormal lab results WBC 11.7 K/mcL (4.3-11.1) H 01/10/17 05:07 RBC 2.81 M/mcL (4.19-5.50) L 01/10/17 05:07 Hgb 7.5 g/dL (12.9-16.9) L 01/10/17 05:07 Hct 24.6 % (37.5-50.1) L 01/10/17 05:07 MCH 26.7 pg (28.0-33.3) L 01/10/17 05:07 MCHC 30.5 g/dL (31.6-35.5) L 01/10/17 05:07 RDW 14.8 % (11.5-14.5) H 01/10/17 05:07 Neutrophils # 9.3 K/mcL (1.6-8.9) H 01/10/17 05:07 Nucleated RBCs/100 WBC 0.2 /100 WBC (0) H 01/09/17 07:32 PT 14.1 Seconds (9.4-12.1) H 01/07/17 03:16 ABG pH 7.48 pH Units (7.32-7.45) H 01/06/17 14:40 ABG pO2 77 mmHg (85-104) L 01/06/17 14:40 ABG HCO3 27.6 mEQ/L (21-27) H 01/06/17 14:40 ABG Total CO2 28.7 mEq/L (20-26) H 01/06/17 14:40 ABG Base Excess 3.8 mEq/L (-2.0 to 3.0) H 01/06/17 14:40 Potassium 5.1 mEq/L (3.5-4.5) H 01/10/17 05:07 BUN 58 mg/dL (8-26) H 01/10/17 05:07 Creatinine 1.88 mg/dL (0.72-1.25) H 01/10/17 05:07 Est GFR ( Amer) 43 (> 60) L 01/10/17 05:07 Est GFR (Non-Af Amer) 36 (> 60) L 01/10/17 05:07 BUN/Creatinine Ratio 31 (6-26) H 01/10/17 05:07 Glucose 177 mg/dL (70-99) H 01/10/17 05:07 POC Glucose 167 (58-89) H 01/10/17 11:44 Calculated Osmolality 311 (280-300) H 01/10/17 05:07 Alkaline Phosphatase 143 Units/L (38-126) H 01/07/17 03:16 Troponin I 0.07 ng/mL (0-0.03) H* 12/30/16 07:36 Serum Total Protein 5.6 g/dL (6.0-8.3) L 01/07/17 03:16 Albumin 2.3 g/dL (3.5-5.0) L D 01/07/17 03:16 Albumin/Globulin Ratio 0.7 (1.1-2.2) L 01/07/17 03:16 Total Testosterone 19 ng/dL (221-716) L 01/01/17 19:38 Ur Specimen Adequacy See below A 12/30/16 08:49 Urine Color Red (Yellow) A 12/30/16 08:49 Urine Clarity Cloudy (Clear) A 12/30/16 08:49 Ur Specific [place] 1.026 (1.010-1.025) H 12/30/16 08:49 Urine Protein >=1000 mg/dL (Neg-Trace) H 12/30/16 08:49 Urine Glucose (UA) 100 mg/dL (Normal) H 12/30/16 08:49 Urine Ketones Trace mg/dL (Negative) H 12/30/16 08:49 Urine Blood Large (Negative) H 12/30/16 08:49 Urine Nitrite Positive (Negative) A 12/30/16 08:49 Urine Bilirubin Small (Negative) H 12/30/16 08:49 Ur Leukocyte Esterase Small (Negative) H 12/30/16 08:49 Ur Culture Indicated? YES (NO) A 12/30/16 08:49 - Attending Attestation I examined this patient and my medical decision-making was reviewed with the ASPHALT PAVER OPERATOR/PA/Advanced Practice Nurse/Resident Physician. I agree with the documented findings, disposition and treatment plan as described except to the extent set forth below. Palliative Quality Code Status: 12/30/16 10:10 DNR [Resuscitation Status: Active] [RES] Routine Comment: ok with intubation for respiratory purposes only Resuscitation Status: DNR-Comfort Care-Arrest - Labs CBC & Chem 7: 01/10/17 05:07 01/10/17 05:07 Labs: Laboratory Results - last 24 hr 01/09/17 01/09/17 01/09/17 07:13 11:02 17:01 WBC RBC Hgb Hct MCV MCH MCHC RDW Plt Count MPV Immature Gran % Seg Neutrophils % Lymphocytes % Monocytes % Eosinophils % Basophils % Neutrophils # Lymphocytes # Monocytes # Eosinophils # Basophils # Sodium Potassium Chloride Carbon Dioxide BUN Creatinine Est GFR ( Amer) Est GFR (Non-Af Amer) BUN/Creatinine Ratio Glucose POC Glucose 126 H 262 H 138 H Calculated Osmolality Calcium Blood Type Antibody Screen Crossmatch 01/09/17 01/10/17 01/10/17 22:28 05:07 05:07 WBC 11.7 H RBC 2.81 L Hgb 7.5 L Hct 24.6 L MCV 87.5 MCH 26.7 L MCHC 30.5 L RDW 14.8 H Plt Count 204 MPV 11.0 Immature Gran % 1.2 Seg Neutrophils % 79.6 Lymphocytes % 7.6 Monocytes % 9.1 Eosinophils % 2.2 Basophils % 0.3 Neutrophils # 9.3 H Lymphocytes # 0.9 Monocytes # 1.1 Eosinophils # 0.3 Basophils # 0.0 Sodium 140 Potassium 5.1 H Chloride 105 Carbon Dioxide 29 BUN 58 H Creatinine 1.88 H Est GFR ( Amer) 43 L Est GFR (Non-Af Amer) 36 L BUN/Creatinine Ratio 31 H Glucose 177 H POC Glucose 162 H Calculated Osmolality 311 H Calcium 8.9 Blood Type Antibody Screen Crossmatch 01/10/17 01/10/17 01/10/17 07:32 09:27 11:44 WBC RBC Hgb Hct MCV MCH MCHC RDW Plt Count MPV Immature Gran % Seg Neutrophils % Lymphocytes % Monocytes % Eosinophils % Basophils % Neutrophils # Lymphocytes # Monocytes # Eosinophils # Basophils # Sodium Potassium Chloride Carbon Dioxide BUN Creatinine Est GFR ( Amer) Est GFR (Non-Af Amer) BUN/Creatinine Ratio Glucose POC Glucose 262 H 167 H Calculated Osmolality Calcium Blood Type O POSITIVE Antibody Screen NEGATIVE Crossmatch See Detail - ABG Interpretation ABG results: ABG ABG pH 7.48 pH Units (7.32-7.45) H 01/06/17 14:40 ABG pCO2 37 mmHg (35-45) 01/06/17 14:40 ABG pO2 77 mmHg (85-104) L 01/06/17 14:40 ABG O2 Saturation 96 % (95-98) 01/06/17 14:40 PT/INR, D-dimer PT 14.1 Seconds (9.4-12.1) H 01/07/17 03:16
[2017-01-10] MEDS: *HR* OxyCODONE Immed Rel 5 MG TABLET PO PRN (11:52)
--- NOTE | 2017-01-10 12:57 | Urology Progress Note ---
Date of Encounter: 01/10/17 Time of Encounter: 12:52 - Assessment and Plan (1) Gross hematuria Current Visit: Yes Status: Acute Assessment and plan: will again stop CBI and observe urine. restart if dark hematuria. hopefully will be able to stop CBI and provide option for discharge. minimal other surgical options exist if bleeding continues except reattempting nephrostomy tubes or formalin instillation. Need to be cautious proceeding with aggressive intervention. Progress Note Narrative: no new issues. slow CBI. no clots overnight. HGB down to 7s Objective Initial Vital Signs Temp Pulse Resp BP Pulse Ox 97.7 F 93 18 137/82 100 12/30/16 06:32 12/30/16 06:32 12/30/16 06:32 12/30/16 06:32 12/30/16 06:32 - General physical appearance Present: no distress - Additional Exam transparent very slight hematuria. - Labs 01/10/17 05:07 01/10/17 05:07 Diabetes panel 01/10/17 Range/Units 05:07 Sodium 140 (136-145) mEq/L Potassium 5.1 H (3.5-4.5) mEq/L Chloride 105 (98-109) mEq/L Carbon Dioxide 29 (19-29) mEq/L BUN 58 H (8-26) mg/dL Creatinine 1.88 H (0.72-1.25) mg/dL Glucose 177 H (70-99) mg/dL Calcium 8.9 (8.6-10.8) mg/dL Calcium panel 01/10/17 Range/Units 05:07 Calcium 8.9 (8.6-10.8) mg/dL Pituitary panel 01/10/17 Range/Units 05:07 Sodium 140 (136-145) mEq/L Potassium 5.1 H (3.5-4.5) mEq/L Chloride 105 (98-109) mEq/L Carbon Dioxide 29 (19-29) mEq/L BUN 58 H (8-26) mg/dL Creatinine 1.88 H (0.72-1.25) mg/dL Glucose 177 H (70-99) mg/dL Calcium 8.9 (8.6-10.8) mg/dL Adrenal panel 01/10/17 Range/Units 05:07 Sodium 140 (136-145) mEq/L Potassium 5.1 H (3.5-4.5) mEq/L Chloride 105 (98-109) mEq/L Carbon Dioxide 29 (19-29) mEq/L BUN 58 H (8-26) mg/dL Creatinine 1.88 H (0.72-1.25) mg/dL Glucose 177 H (70-99) mg/dL Calcium 8.9 (8.6-10.8) mg/dL - VTE Documentation of Mechanical Device: Intermittent pneumatic compression device Consult Discharge Plan - Plan Referrals: [facility] [Primary Care Provider] -
[2017-01-10] MEDS ORDERED: 0.9 % Sodium Chloride 250 ML ONE (14:36)
--- NOTE | 2017-01-10 19:02 | Internal Med Progress Note ---
Date of Encounter: 01/10/17 Time of Encounter: 09:00 - Assessment and plan (1) Gross hematuria Current Visit: Yes Status: Acute Assessment and plan: Could be secondary to radiation cystitis or prostate cancer bleeding. Cystoscopy 01/06/17 with clot evacuation, fulguration, and right ureteral stent placement. Radiation oncology team assessed the patient and did not recommend any palliative radiotherapy due to hemorrhagic cystitis findings at the time of cystoscopy. Appreciate urology input. Persistent hematuria. Continue CBI per urology recommendations. (2) Acute worsening of stage 3 chronic kidney disease Current Visit: No Status: Chronic Assessment and plan: Prerenal from acute blood loss anemia. Kidney function continued to improve. Avoid nephrotoxic agents as possible. (3) Acute blood loss anemia Current Visit: No Status: Acute Assessment and plan: Secondary to gross hematuria. Patient received 4 units of packed red blood cell (last 01/06) Ongoing hematuria with Hemoglobin 7.5 this morning. Plan for transfusion of 1 unit of packed red blood cell. (4) Hyperkalemia Current Visit: Yes Status: Acute Assessment and plan: Improve. Potassium 5.1 this morning. (5) DMII (diabetes mellitus, type 2) Current Visit: Yes Status: Chronic Assessment and plan: Continue Accu-Chek blood glucose monitoring with sliding scale insulin. Qualifiers: Diabetes mellitus complication status: with unspecified complications Diabetes mellitus terminal worker insulin use: with jail use Qualified Code(s) : E11.8 - Type 2 diabetes mellitus with unspecified complications; Z79.4 - senior care (current) use of insulin (6) Morbid obesity with BMI of 40.0-44.9, adult Current Visit: No Status: Chronic (7) Prostate cancer metastatic to intrapelvic lymph node Current Visit: Yes Status: Chronic Assessment and plan: metastatic high-grade, castration resistant prostate cancer. poor prognosis. Patient has also been seen by palliative care team and oncology and he opted to pursue outpatient chemotherapy and palliative radiation. - Subjective Interval history: still with hematuria. - Constitutional Vitals: Temp Pulse Resp BP Pulse Ox 99.0 F 88 16 144/85 94 01/10/17 17:26 01/10/17 17:26 01/10/17 15:07 01/10/17 17:26 01/10/17 17:26 General appearance: Present: A&O X 0 (Lethargic and somnolent, responds only to painful stimuli), cooperative, morbidly obese, pleasant, no acute distress, answers questions appropriately - Respiratory Respiratory exam: Present: CTAB - Cardiovascular Cardiovascular exam: Present: RRR - GI/Abdominal GI/Abdominal exam: Present: normal bowel sounds, soft. Absent: distended, tenderness - Additional comments: ongoing CBI - Extremities Exam Extremities exam: Present: pedal edema - Back Exam Back exam: Absent: CVA tenderness (L), CVA tenderness (R) - Neurological Exam Neurological exam: Present: alert, no focal deficits. Absent: facial droop, speech deficit - Skin Skin exam: Present: dry Internal Medicine: Result - Labs CBC & Chem 7: 01/10/17 05:07 01/10/17 05:07 Labs: Short CBC 01/10/17 Range/Units 05:07 WBC 11.7 H (4.3-11.1) K/mcL Hgb 7.5 L (12.9-16.9) g/dL Hct 24.6 L (37.5-50.1) % Plt Count 204 (140-400) K/mcL Neutrophils # 9.3 H (1.6-8.9) K/mcL BMP 01/10/17 05:07 Sodium 140 Potassium 5.1 H Chloride 105 Carbon Dioxide 29 BUN 58 H Creatinine 1.88 H Glucose 177 H Calcium 8.9 - ABG Interpretation ABG results: ABG ABG pH 7.48 pH Units (7.32-7.45) H 01/06/17 14:40 ABG pCO2 37 mmHg (35-45) 01/06/17 14:40 ABG pO2 77 mmHg (85-104) L 01/06/17 14:40 ABG O2 Saturation 96 % (95-98) 01/06/17 14:40 PT/INR, D-dimer PT 14.1 Seconds (9.4-12.1) H 01/07/17 03:16 - VTE Documentation of Mechanical Device: Intermittent pneumatic compression device Consult Discharge Plan - Plan [facility]errals: [facility] [Primary Care Provider] -
[2017-01-10] MEDS: Gabapentin 300 MG CAPSULE PO SCH (20:50)
[2017-01-11] MEDS: Insulin LISPRO 300 UNITS/3 ML VIAL SQ SCH ×2 (00:45→11:11)
[2017-01-11] MEDS: *HR* OxyCODONE Immed Rel 5 MG TABLET PO PRN (00:51)
--- NOTE | 2017-01-11 07:13 | Urology Progress Note ---
Date of Encounter: 01/11/17 Time of Encounter: 07:12 - Assessment and Plan (1) Gross hematuria Current Visit: Yes Status: Acute Assessment and plan: because of limited options I recommend continued observation without CBI to see if the urine stays transparent. hgb is drifting down. need to discuss benefit of further transfusions. Progress Note Narrative: asleep. no clot retention overnight but increasing hematuria. Objective Initial Vital Signs Temp Pulse Resp BP Pulse Ox 97.7 F 93 18 137/82 100 12/30/16 06:32 12/30/16 06:32 12/30/16 06:32 12/30/16 06:32 12/30/16 06:32 - General physical appearance Present: no distress - Additional Exam urine in the tube is transparent but with increased hematuria. - Labs 01/10/17 05:07 01/10/17 05:07 - VTE Documentation of Mechanical Device: Intermittent pneumatic compression device Consult Discharge Plan - Plan Referrals: [facility] [Primary Care Provider] -
[2017-01-11 07:48] VITALS: BP 138/81
--- NOTE | 2017-01-11 11:05 | Discharge Summary ---
Date of Encounter: 01/11/17 Time of Encounter: 10:54 - Discharge Diagnosis (1) Gross hematuria Priority: Primary Status: Acute (2) Acute worsening of stage 3 chronic kidney disease Priority: Primary Status: Chronic (3) Acute blood loss anemia Priority: Primary Status: Acute (4) Hyperkalemia Priority: Primary Status: Acute (5) DMII (diabetes mellitus, type 2) Priority: Secondary Status: Chronic Qualifiers: Diabetes mellitus complication status: with unspecified complications Diabetes mellitus longitudinal float operator insulin use: with longitudinal float operator use Qualified Code(s) : E11.8 - Type 2 diabetes mellitus with unspecified complications; Z79.4 - retirement (current) use of insulin (6) Morbid obesity with BMI of 40.0-44.9, adult Priority: Secondary Status: Chronic (7) Prostate cancer metastatic to intrapelvic lymph node Priority: Secondary Status: Chronic - Discharge Medications Prescriptions: OxyCODONE Immed Rel [Roxicodone 5 MG] 5 mg PO Q6HR PRN #30 tablet PRN Reason: Pain LORazepam [Ativan] 0.5 mg PO TID PRN #20 tablet PRN Reason: Anxiety Home Medications: Acetaminophen [Tylenol] 325 mg PO BID PRN 10/17/15 [History] Allopurinol [Zyloprim 300 MG] 300 mg PO DAILY 10/17/15 [History] Ascorbic Acid [Vitamin C] 1,000 mg PO DAILY 10/17/15 [History] Carboxymethylcellulos/Glycerin [Refresh Optive Eye Drops] 1 drop OP QID [History] Ipratropium/Albuterol Neb [Duoneb] 3 ml IH Q6H PRN 10/17/15 [History] Modafinil [Provigil] 400 mg PO QAM 10/17/15 [History] Omeprazole [PriLOSEC] 40 mg PO DAILY 10/17/15 [History] Saliva Stimulant [Biotene Moisturizing Rinse] 5 spray PO BID 10/17/15 [History] Sertraline [Zoloft] 50 mg PO QAM #30 tablet 11/30/16 [Rx] Atorvastatin [Lipitor] 40 mg PO HS 12/20/16 [History] Benzocaine/Menthol [Cepacol Sore Throat Lozenge] 1 lozenge PO Q6H PRN 12/20/16 [ History] Ferrous Gluconate 324 mg PO BID 12/20/16 [History] Carvedilol [Coreg] 3.125 mg PO BIDWM tablet 12/27/16 [Rx] Belladonna Alkaloids/Opium [B + O] 60 mg RC Q6HR PRN #0 supp.rect 01/11/17 [Rx] Gabapentin [Neurontin] 300 mg PO HS capsule 01/11/17 [Rx] LORazepam [Ativan] 0.5 mg PO TID PRN #20 tablet 01/11/17 [Rx] OxyCODONE Immed Rel [Roxicodone 5 MG] 5 mg PO Q6HR PRN #30 tablet 01/11/17 [Rx] Sennosides/Docusate Sodium [Senna Plus] 1 each PO BID tablet 01/11/17 [Rx] Thiamine (B-1) [Vitamin B-1] 100 mg PO DAILY tablet 01/11/17 [Rx] Allergies/Adverse Reactions: Allergies IVP dye Allergy (Uncoded 10/17/15 06:47) Vomiting Date of admission: 12/30/16 09:39 [facility] physician: [facility] Consults: 12/30/16 09:42 Consult to Occupational Therapy [CONS] Routine Comment: Evaluate, develop and implement POC Consult to Physical Therapy [CONS] Routine Comment: Evaluate, develop and implement POC 12/30/16 09:47 Consult to Urology [CONS] Routine Consulting Provider: Urology [facility] Reason for Consult: hematuria Call Completed: Yes 12/31/16 16:35 Consult to Palliative Care [CONS] Routine Comment: Consulting Provider: Palliative Care [place] Consult to Spd Tech [CONS] Routine Reason for SW Consult: possible need for services upon discharge 01/06/17 11:43 Consult to Pulmonology [CONS] Stat Consulting Provider: Pulm Crit Care [facility] Sleep [place] Reason for Consult: critical care management Call Completed: No 01/06/17 11:48 Consult to Pulmonology [CONS] Routine Consulting Provider: Pulm [facility] [place] Reason for Consult: Worsening respiratory failure Call Completed: Yes - Patient Status Disposition: Transfer [facility] Condition: Serious Functional capacity at discharge: bed bound Overall status at discharge: patient is not back to baseline - Discharge Instructions Follow Up With: [facility] [Primary Care Provider] - - Diet and Activity Activity: other (BEDREST) Diet: diabetic diet Interval History: Patient reports mild abdominal pain that is better controlling medications. Hospital course: Mr. Blas is a 71 year old male with past medical history of diabetes mellitus , and metastatic prostate cancer. He presented with gross hematuria and worsening of kidney function. Cystoscopy 01/06/17 with clot evacuation, fulguration, and right ureteral stent placement. Patient was started on continuous bladder irrigation without any improvement of hematuria. His hemoglobin will continue to drop and he was transfused a total of 5 units of packed red blood cells during this hospitalization. Palliative service was involved. Patient and family agreed with DNR comfort care. PLAN: Transfer to hospice care at [facility]. - Time Spent with Patient Total time spent providing and/or coordinating discharge services: - Constitutional Vitals: Temp Pulse Resp BP Pulse Ox 98.6 F 73 18 138/81 97 01/11/17 07:39 01/11/17 07:39 01/11/17 07:39 01/11/17 07:39 01/11/17 07:39 General appearance: Present: A&O X 0 (Lethargic and somnolent, responds only to painful stimuli), cooperative, morbidly obese, pleasant, no acute distress, answers questions appropriately - VTE Documentation of Mechanical Device: Intermittent pneumatic compression device
--- NOTE | 2017-01-11 11:07 | Physician Discharge Referral ---
ExtendedCare Referral Info Transfer To: [facility] Provider in Charge: NICOLÁS Provider in Charge after Transfer: [facility] Institutional Level of Care: Skilled - Diagnosis (1) Gross hematuria Status: Acute (2) Acute worsening of stage 3 chronic kidney disease Status: Chronic (3) Acute blood loss anemia Status: Acute (4) Hyperkalemia Status: Acute (5) DMII (diabetes mellitus, type 2) Status: Chronic (6) Morbid obesity with BMI of 40.0-44.9, adult Status: Chronic (7) Prostate cancer metastatic to intrapelvic lymph node Status: Chronic - Transfer Medications Prescriptions: OxyCODONE Immed Rel [Roxicodone 5 MG] 5 mg PO Q6HR PRN #30 tablet PRN Reason: Pain LORazepam [Ativan] 0.5 mg PO TID PRN #20 tablet PRN Reason: Anxiety Home Medications: Acetaminophen [Tylenol] 325 mg PO BID PRN 10/17/15 [History] Allopurinol [Zyloprim 300 MG] 300 mg PO DAILY 10/17/15 [History] Ascorbic Acid [Vitamin C] 1,000 mg PO DAILY 10/17/15 [History] Carboxymethylcellulos/Glycerin [Refresh Optive Eye Drops] 1 drop OP QID [History] Ipratropium/Albuterol Neb [Duoneb] 3 ml IH Q6H PRN 10/17/15 [History] Modafinil [Provigil] 400 mg PO QAM 10/17/15 [History] Omeprazole [PriLOSEC] 40 mg PO DAILY 10/17/15 [History] Saliva Stimulant [Biotene Moisturizing Rinse] 5 spray PO BID 10/17/15 [History] Sertraline [Zoloft] 50 mg PO QAM #30 tablet 11/30/16 [Rx] Atorvastatin [Lipitor] 40 mg PO HS 12/20/16 [History] Benzocaine/Menthol [Cepacol Sore Throat Lozenge] 1 lozenge PO Q6H PRN 12/20/16 [ History] Ferrous Gluconate 324 mg PO BID 12/20/16 [History] Carvedilol [Coreg] 3.125 mg PO BIDWM tablet 12/27/16 [Rx] Belladonna Alkaloids/Opium [B + O] 60 mg RC Q6HR PRN #0 supp.rect 01/11/17 [Rx] Gabapentin [Neurontin] 300 mg PO HS capsule 01/11/17 [Rx] LORazepam [Ativan] 0.5 mg PO TID PRN #20 tablet 01/11/17 [Rx] OxyCODONE Immed Rel [Roxicodone 5 MG] 5 mg PO Q6HR PRN #30 tablet 01/11/17 [Rx] Sennosides/Docusate Sodium [Senna Plus] 1 each PO BID tablet 01/11/17 [Rx] Thiamine (B-1) [Vitamin B-1] 100 mg PO DAILY tablet 01/11/17 [Rx] Allergies/Adverse Reactions: Allergies IVP dye Allergy (Uncoded 10/17/15 06:47) Vomiting - Respiratory Orders Oxygen / L per min (2) Smoking Cessation: Smoking cessation has been advised. For more information, call the [employer] Tobacco Quit Line at 4-148-EXYD-NOW. - Advance Directives Code Status: DNR-Comfort Care - Mobility Orders Bedrest - Rehabiliation Orders Rehab Potential: Poor - Treatments Skin tear care topically daily PRN per policy, May check for fecal impaction rectally daily PRN List/Other: HOSPICE - COMFORT CARE CONTINUOUS BLADDER IRRIGATION IF NEEDED - Diet Orders No Concentrated Sweets CERTIFICATION: I certify that the transfer of the above named patient to an Extended Care Facility is necessary for the continuing treatment of the diagnosis listed. The above information is true and accurate reflection of patient's current condition. Confidential - Redisclosure prohibited without a patient's written consent.
--- NOTE | 2017-01-11 11:54 | Palliative Progress Note ---
Date of Encounter: 01/11/17 Time of Encounter: 09:20 - Assessment and plan (1) Goals of care, counseling/discussion Current Visit: No Status: Acute Assessment and plan: Clinical situation discussed with pt, Richard MOHANW also present and discussed options. Patient has decided to transition to DNR-Comfort Care and desires transfer to [facility]. I asked Richard to check with that wing if they could continue bladder irrigation PRN for comfort. Expect transfer soon. D/W Dr. Bronson (2) Abdominal pain Current Visit: Yes Status: Acute Assessment and plan: Continue Oxycodone PRN. Has utilized x2 last 24 hours. Qualifiers: Abdominal location: unspecified location Qualified Code(s): R10.9 - Unspecified abdominal pain (3) Constipation Current Visit: Yes Status: Acute Assessment and plan: Continue Senokot BID. + BM yesterday. MOnitor - Time Spent With Patient Total time spent is greater than 50% in coordination of care (as documented) at patient's floor/unit and/or counseling patient: 25 - 35 minutes - Subjective Interval history: Patient awake and alert. Drank ensure supplement for breakfast. No family or visitors present. Denies pain or discomfort. Expresses craving for jelly beans. Patient converses with eyes closed. - Constitutional Vitals: Abnormal lab results WBC 11.7 K/mcL (4.3-11.1) H 01/10/17 05:07 RBC 2.81 M/mcL (4.19-5.50) L 01/10/17 05:07 Hgb 7.5 g/dL (12.9-16.9) L 01/10/17 05:07 Hct 24.6 % (37.5-50.1) L 01/10/17 05:07 MCH 26.7 pg (28.0-33.3) L 01/10/17 05:07 MCHC 30.5 g/dL (31.6-35.5) L 01/10/17 05:07 RDW 14.8 % (11.5-14.5) H 01/10/17 05:07 Neutrophils # 9.3 K/mcL (1.6-8.9) H 01/10/17 05:07 Nucleated RBCs/100 WBC 0.2 /100 WBC (0) H 01/09/17 07:32 PT 14.1 Seconds (9.4-12.1) H 01/07/17 03:16 ABG pH 7.48 pH Units (7.32-7.45) H 01/06/17 14:40 ABG pO2 77 mmHg (85-104) L 01/06/17 14:40 ABG HCO3 27.6 mEQ/L (21-27) H 01/06/17 14:40 ABG Total CO2 28.7 mEq/L (20-26) H 01/06/17 14:40 ABG Base Excess 3.8 mEq/L (-2.0 to 3.0) H 01/06/17 14:40 Potassium 5.1 mEq/L (3.5-4.5) H 01/10/17 05:07 BUN 58 mg/dL (8-26) H 01/10/17 05:07 Creatinine 1.88 mg/dL (0.72-1.25) H 01/10/17 05:07 Est GFR ( Amer) 43 (> 60) L 01/10/17 05:07 Est GFR (Non-Af Amer) 36 (> 60) L 01/10/17 05:07 BUN/Creatinine Ratio 31 (6-26) H 01/10/17 05:07 Glucose 177 mg/dL (70-99) H 01/10/17 05:07 POC Glucose 136 (58-89) H 01/11/17 07:42 Calculated Osmolality 311 (280-300) H 01/10/17 05:07 Alkaline Phosphatase 143 Units/L (38-126) H 01/07/17 03:16 Troponin I 0.07 ng/mL (0-0.03) H* 12/30/16 07:36 Serum Total Protein 5.6 g/dL (6.0-8.3) L 01/07/17 03:16 Albumin 2.3 g/dL (3.5-5.0) L D 01/07/17 03:16 Albumin/Globulin Ratio 0.7 (1.1-2.2) L 01/07/17 03:16 Total Testosterone 19 ng/dL (221-716) L 01/01/17 19:38 Ur Specimen Adequacy See below A 12/30/16 08:49 Urine Color Red (Yellow) A 12/30/16 08:49 Urine Clarity Cloudy (Clear) A 12/30/16 08:49 Ur Specific [place] 1.026 (1.010-1.025) H 12/30/16 08:49 Urine Protein >=1000 mg/dL (Neg-Trace) H 12/30/16 08:49 Urine Glucose (UA) 100 mg/dL (Normal) H 12/30/16 08:49 Urine Ketones Trace mg/dL (Negative) H 12/30/16 08:49 Urine Blood Large (Negative) H 12/30/16 08:49 Urine Nitrite Positive (Negative) A 12/30/16 08:49 Urine Bilirubin Small (Negative) H 12/30/16 08:49 Ur Leukocyte Esterase Small (Negative) H 12/30/16 08:49 Ur Culture Indicated? YES (NO) A 12/30/16 08:49 General appearance: Present: no acute distress - Respiratory Respiratory exam: Present: decreased breath sounds, CTAB - Cardiovascular Cardiovascular exam: Present: +S1, +S2 - GI/Abdominal GI/Abdominal exam: Present: normal bowel sounds, soft - Additional comments: Ramos patent with CBI. Urine dk jj with occasional with clots. - Extremities Exam Extremities exam: Present: normal capillary refill, normal inspection - Neurological Exam Neurological exam: Present: alert, oriented X3, strengths equal and symetr throughout - Skin Skin exam: Present: dry, normal color, warm Palliative Quality Palliative Quality: Screen for Code Status: Yes, Screen for Goals of Care: Yes, Screen for Pain: Yes, If Pain Regimen Started, Initiate Bowel Regimen: No (Will recommend), Screen for Nausea/Vomitting: Yes Code Status: 12/30/16 10:10 DNR [Resuscitation Status: Active] [RES] Routine Comment: ok with intubation for respiratory purposes only Resuscitation Status: DNR-Comfort Care-Arrest 01/11/17 10:01 DNR [Resuscitation Status: Active] [RES] Routine Comment: Resuscitation Status: DNR-Comfort Care - Labs CBC & Chem 7: 01/10/17 05:07 01/10/17 05:07 Labs: Laboratory Results - last 24 hr 01/10/17 01/10/17 01/10/17 09:27 11:44 16:30 POC Glucose 167 H 139 H Blood Type O POSITIVE Antibody Screen NEGATIVE Crossmatch See Detail 01/11/17 07:42 POC Glucose 136 H Blood Type Antibody Screen Crossmatch - ABG Interpretation ABG results: ABG ABG pH 7.48 pH Units (7.32-7.45) H 01/06/17 14:40 ABG pCO2 37 mmHg (35-45) 01/06/17 14:40 ABG pO2 77 mmHg (85-104) L 01/06/17 14:40 ABG O2 Saturation 96 % (95-98) 01/06/17 14:40 PT/INR, D-dimer PT 14.1 Seconds (9.4-12.1) H 01/07/17 03:16 Consult Discharge Plan - Plan [facility]errals: [facility] [Primary Care Provider] - Prescriptions: OxyCODONE Immed Rel [Roxicodone 5 MG] 5 mg PO Q6HR PRN #30 tablet PRN Reason: Pain LORazepam [Ativan] 0.5 mg PO TID PRN #20 tablet PRN Reason: Anxiety
[2017-01-11] MEDS: Sennosides/Docusate Sodium TABLET PO SCH (12:02)
[2017-01-11] MEDS: Ascorbic Acid 500 MG TABLET PO SCH (12:03)
[2017-01-11] MEDS: Thiamine (B-1) 100 MG TABLET PO SCH (12:03)
[2017-01-11] MEDS: Saliva Stimulant 100ml BOTTLE PO SCH (12:04)
[2017-01-11] MEDS: Artificial Tears SOLN 15 ML BOTTLE OP SCH (12:28)
== END 2017-01-11 12:40 | DRG 715 ==
LOC: EMEROO 06:25 → SUATTDRO 09:39 → 2ANU 09:39 → ICNU 01-06 11:36 → 3ANU 01-09 17:35
PROVIDERS: ADMIT Hospitalist; ATTEND Internal Medicine